=== PATIENT | female | born 1940 | race Caucasian/White ===

== ENCOUNTER 2016-12-14 15:03 | Outpatient (CLI) | payer MEDICARE, OTHER ==
--- NOTE | 2016-12-15 12:36 | XRAY Report ---
THREE VIEWS OF THE RIGHT FOOT: 12/14/2016 CLINICAL HISTORY: Foot pain. FINDINGS: Patient has had multiple foot fusions. There is a surgical screw extending from the talus to the calcaneus. There is also an orthopedic staple extending from the calcaneus to the talus. Th is produces at least partial fusion of the calcaneus and talus. Two surgical marco a are seen extend ing between the navicular bone and the inferior aspect of the talus, producing complete fusion of the se bones. A single surgical screw is noted through the calcaneus and cuboid. This is associated wit h fusion of these bones. Narrowing is noted between the talus and the cuneiform bones. Mild narrowi ng is noted at the tarsal metatarsal junctions. A single surgical screw is seen bridging a healed ol d fracture of the distal third of the shaft of the third metatarsal. Severe joint space narrowing is noted at the first MP joint. The head of the first metatarsal is ero ded and deformed and extends into a defect in the base and proximal shaft of the proximal phalanx of the first toe. This may be a result of old trauma and/or surgery. Considerable attenuation of the h ead of the second and third metatarsals is seen with narrowing of these MP joints and varus deformity noted at these MP joints. Mild varus deformity is seen at the fifth MP joint. Narrowing is noted a t the proximal and distal interphalangeal joints. Osteoporosis is evident. There are either small bone fragments or accessory ossicles along the ventral aspect of the right for efoot inferior to the middle third of the first metatarsal shaft. Multiple fusions are noted in the right hindfoot. These fusions include fused calcaneus and talus, f used talus and navicular bone, fused cuboid and calcaneus. IMPRESSION: 1. SEVERE DEFORMITY IS SEEN AT THE RIGHT FIRST MP JOINT DISCUSSED ABOVE. THIS PROBABLY IS THE RES ULT OF OLD TRAUMA WITH FRACTURE DEFORMITY SEEN IN THE HEAD OF THE FIRST METATARSAL AND ADJACENT BASE OF THE PROXIMAL PHALANX OF THE FIRST TOE. 2. HEALED OLD FRACTURE OF THE DISTAL THIRD OF THE SHAFT OF THE THIRD METATARSAL WITH EVIDENCE OF INT ERNAL FIXATION. 3. ATTENUATION OF THE HEAD OF THE SECOND AND THIRD METATARSALS POSSIBLY A RESULT OF OLD TRAUMA. SEC ONDARY CONSIDERATION FOR THE ATTENUATION OF THE HEAD OF THE SECOND METATARSAL IS OLD ASEPTIC NECROSIS DEFORMITY. 4. OSTEOPOROSIS. 5. OSTEOARTHRITIS. JOB #: [id number] EXT JOB #:[id number]
== END 2016-12-14 15:04 | disposition home or self-care (01) ==
LOC: DI.N 15:03
PROVIDERS: ATTEND Internal Medicine
DX: M20.61 Acquired deformities of toe(s), unspecified, right foot (principal); M81.0 Age-related osteoporosis without current pathological fracture; M19.071 Primary osteoarthritis, right ankle and foot

== ENCOUNTER 2017-06-10 09:12 | Emergency (ER) | payer MEDICARE, OTHER ==
[2017-06-10 09:21] VITALS: BP 125/60
--- NOTE | 2017-06-10 09:30 | ED Physician Documentation ---
PD HPI URI - Stated complaint Stated Complaint: FLU SX - Chief complaint Chief Complaint: Resp - History obtained from History obtained from: Patient - History of Present Illness Timing - onset: How many weeks ago (1) Timing duration: Weeks (1) Timing details: Abrupt onset, Still present Associated symptoms: Fever, Chills Contributing factors: Sick contact (her had flu and was slow to improve. Is on abx for pneumonia based on chest xray. is concerned she is having pneumonia as well, given the persistent of symptoms a week now.), Immunocompromised. No: Travel, COPD / asthma Worsened by: Activity Similar symptoms before: Diagnosis Recently seen: Clinic Review of Systems Constitutional: reports: Fever, Chills, Myalgias Nose: reports: Rhinorrhea / runny nose, Congestion Cardiac: denies: Chest pain / pressure, Palpitations Respiratory: reports: Dyspnea, Cough, Wheezing Skin: denies: Rash, Lesions Neurologic: reports: Generalized weakness. 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 She is steroid-dependent and also takes methotrexate every Monday. She has not needed joint replacement surgery yet.) Derm: None - Past Surgical History Past Surgical History: Yes General: Cholecystectomy, Bowel surgery, Colonoscopy Ortho: Arthroscopic surgery /HEAD ESTHETICIAN: Hysterectomy - Present Medications Home Medications: Ambulatory Orders Medication Instructions Recorded Confirmed predniSONE [Deltasone] 5 mg PO DAILY 12/20/12 06/10/17 Methotrexate 20 mg PO ONCE MDD Takes once weekly 02/12/15 06/10/17 Omeprazole [PriLOSEC] 20 mg PO DAILY 02/25/16 06/10/17 Propranolol ER [Inderal LA] 80 mg PO BID 03/02/17 06/10/17 Naproxen Sodium [Aleve] 220 mg PO BID 03/09/17 06/10/17 Albuterol Sulf [Ventolin Hfa 1 - 2 puffs INH Q4HR PRN #1 inhaler 06/10/17 Inhaler] Azithromycin [Zithromax] 250 mg PO DAILY #6 tablet 06/10/17 Benzonatate [Tessalon] 100 mg PO TID PRN #25 capsule 06/10/17 - Allergies Allergies/Adverse Reactions: Allergies Allergy/AdvReac Type Severity Reaction Status Date / Time meperidine HCl * AdvReac Unknown Hallucinati Verified 06/10/17 09:21 [From Demerol] ons morphine AdvReac Unknown Dizziness Verified 06/10/17 09:21 Penicillins AdvReac Unknown Rash Verified 06/10/17 09:21 Sulfa (Sulfonamide AdvReac Unknown Rash Verified 06/10/17 09:21 Antibiotics) tetracycline AdvReac Unknown Rash Verified 06/10/17 09:21 - Social History Does the pt smoke?: No Smoking Status: Never smoker Does the pt drink ETOH?: No Does the pt have substance abuse?: No - Immunizations Immunizations are current?: Yes - POLST Patient has POLST: No POLST Status: Full Code PD ED PE NORMAL - Vitals Vital signs reviewed: Yes (97% sats) - General General: Alert and oriented X 3, No acute distress, Well developed/nourished - HEENT HEENT: Ears normal, Pharynx benign - Neck Neck: Supple, no meningeal sign, No adenopathy, No JVD - Cardiac Cardiac: RRR, No murmur, No rub - Respiratory Respiratory: No respiratory distress, Clear bilaterally - Abdomen Abdomen: Soft, Non tender - Derm Derm: Normal color, Warm and dry, No rash - Extremities Extremities: No tenderness to palpate, Normal ROM s pain, No edema, No calf tenderness / cord - Neuro Neuro: Alert and oriented X 3, production machine tender 2-12 intact Eye Opening: Spontaneous Motor: Obeys Commands Verbal: Oriented GCS Score: 15 - Psych Psych: Normal mood Results - Vitals Vitals: Vital Signs - 24 hr 06/10/17 06/10/17 09:17 11:30 Temperature 36.7 C Heart Rate 87 84 Respiratory 26 H 18 Rate Blood Pressure 125/60 O2 Saturation 97 Oxygen O2 Source Room air - Rads (name of study) chest xray Radiology: Prelim report reviewed (no infiltrates), EMP read contemporaneously PD MEDICAL DECISION MAKING - ED course Complexity details: reviewed results, considered differential (sounds likely viral URI but she is immune compromised on steroids. Higher chance of bacterial colonization and infection. ), d/w patient Departure - Departure Disposition: 01 Home, Self Care Clinical Impression: Flu Upper respiratory infection Qualifiers: URI type: unspecified URI Qualified Code(s): J06.9 - Acute upper respiratory infection, unspecified Condition: Stable Record reviewed to determine appropriate education?: Yes Instructions: ED Flu Follow-Up: Navjot Burkett MD [Primary Care Provider] - Prescriptions: Albuterol Sulf [Ventolin Hfa Inhaler] 1 - 2 puffs INH Q4HR PRN #1 inhaler PRN Reason: Shortness Of Air/Wheezing Azithromycin [Zithromax] 250 mg PO DAILY #6 tablet Benzonatate [Tessalon] 100 mg PO TID PRN #25 capsule PRN Reason: Cough Comments: Use the albuterol inhaler 2 puffs 4 times a day for the next 7-10 days. Given your current illness, I would increase your prednisone dose from the 5 mg daily to 20 mg daily for 2 days then 15 mg for 2 days then 10 mg daily for 2 days and then back to the 5 mg. This would be a stress dosing for the steroids due to the illness. Because of your compromised immune system, which would be worried about potential bacterial infections though this is most likely viral. However will treat with Zithromax to cover that potential. You have been ill long enough the antiviral medicines such as Tamiflu would have little impact on the illness. Use Tessalon if needed for cough. Follow-up with your primary care if not improving over the next several days. Discharge Date/Time: 06/10/17 12:20
--- NOTE | 2017-06-10 10:39 | XRAY Report ---
EXAM: CHEST RADIOGRAPHY EXAM DATE: 06/10/2017 09:56 AM. CLINICAL HISTORY: Cough, sob. COMPARISON: 02/13/2015. TECHNIQUE: 2 views. FINDINGS: Lungs/Pleura: New rounded 8 mm left upper lung nodule seen only on frontal projection exam between an terior second and third ribs. Bilateral interstitial prominence and areas of parenchymal scarring. In creased AP diameter of the chest on lateral view. No dense consolidation. No pleural effusion. No pne umothorax. Mediastinum: Heart size is normal. Mild bilateral nonspecific hilar prominence. Calcified atheroscler osis in the aorta. Other: None. IMPRESSION: 1. New 8 mm nodular density on the left seen well only on frontal projection examination. CT recommen ded for further assessment. 2. Nonspecific bilateral hilar prominence not significantly changed compared to prior study. 3. Areas of parenchymal scarring are seen in the lungs bilaterally with mild hyperaeration and increa sed AP diameter of the chest. 4. Exam otherwise as above. [facility] Referring Provider Line: [phone] SITE ID: [id number]
[2017-06-10] MEDS ORDERED: DEXAMETHASONE 10 MG/ML VIAL PO STA (11:13)
[2017-06-10] MEDS ORDERED: BENZONATATE 100 MG CAPSULE PO STA (11:13)
[2017-06-10] MEDS ORDERED: ALBUTEROL NEB 2.5 MG/3 ML INH STA (11:13)
== END 2017-06-10 12:20 | disposition home or self-care (01) ==
LOC: ED 09:12
DX: J11.1 Influenza due to unidentified influenza virus with other respiratory manifestations (principal); J06.9 Acute upper respiratory infection, unspecified; M06.9 Rheumatoid arthritis, unspecified; Z79.52 Long term (current) use of systemic steroids
CPT/HCPCS: 71046; 94640; 99281; 99283; A9270; J7613

== ENCOUNTER 2017-06-13 11:39 | Outpatient (CLI) | payer MEDICARE, OTHER ==
[~2017-06-13 11:39] MED LIST: IOPAMIDOL-300 100 ML VIAL ONE
[2017-06-13 12:07] LABS: CREATININE 0.6 mg/dL (0.4-1.0)
[2017-06-13] MEDS ORDERED: IOPAMIDOL-300 100 ML VIAL IVP ONE (12:32)
--- NOTE | 2017-06-13 18:55 | CT Report ---
DATE OF SERVICE: 06/13/2017 CT CHEST WITH CONTRAST: 06/13/2017 CLINICAL INDICATION: Left upper lobe nodule on plain film 06/10/2017. Axial CT images of the chest were obtained with 80 mL Isovue 300 intravenously. In accordance with CT protocol optimization, one or more of the following dose reduction techniques were utilized for this exam: Automated exposure control, adjustment of mA and/or KV based on patient size, or use of iterative reconstructive technique. COMPARISON: Chest x-ray 06/10/2017. The heart and great vessels demonstrate atherosclerotic calcification. No hilar or mediastinal lymphadenopathy is present. The lungs demonstrate bronchiectasis and patchy ground glass opacities. These are likely infectious in etiology. There is no pulmonary nodule in the left upper lobe, at the site questioned on the plain film. This may have represented a focus of mucous plugging. No effusion or pneumothorax is present. Osseous structures demonstrate degenerative changes. Limited evaluation of upper abdominal structures demonstrates normal adrenal glands. Fatty infiltration of the liver is incidentally noted. IMPRESSION: Bronchiectasis, with patchy ground glass opacities, likely infectious in etiology. No evidence of a left upper lobe pulmonary nodule at the site questioned on plain film. TD: 06/13/2017 19:54
== END 2017-06-13 11:40 | disposition home or self-care (01) ==
LOC: LAB 11:39
PROVIDERS: ATTEND Internal Medicine
DX: J47.9 Bronchiectasis, uncomplicated (principal)
CPT/HCPCS: 36415; 71260; 82565; Q9967

== ENCOUNTER 2018-05-23 19:31 | Outpatient (CLI) | payer MEDICARE, OTHER | END 2018-05-23 19:32 | disposition critical access hospital (66) | LOC: EMS 19:31 | PROVIDERS: ATTEND Surgery | DX: R11.2 Nausea with vomiting, unspecified (principal); R53.1 Weakness; R42 Dizziness and giddiness | CPT/HCPCS: A0425; A0427 ==

== ENCOUNTER 2018-05-23 19:46 | Inpatient (IN) | payer MEDICARE, OTHER ==
[2018-05-23 20:11] LABS: BASOPHILS # (AUTO) 0.1 10^3/uL (0.0-0.1); BASOPHILS % (AUTO) 0.9 %; EOSINOPHILS # (AUTO) 0.1 10^3/uL (0.0-0.7); EOSINOPHILS % (AUTO) 0.7 %; HGB - HEMOGLOBIN 13.9 g/dL (12.0-16.0); LYMPHOCYTES % (AUTO) 7.1 %; MEAN CORPUSCULAR HEMOGLOBIN 29.6 pg (27.0-31.0); MEAN CORPUSCULAR HGB CONC 32.8 g/dL (32.0-36.0); MEAN CORPUSCULAR VOLUME 90.3 fL (81.0-99.0); MEAN PLATELET VOLUME 7.4 fL (7.9-10.8); MONOCYTES # (AUTO) 0.7 10^3/uL (0.0-1.0); MONOCYTES % (AUTO) 4.9 %; NEUTROPHILS # (AUTO) 11.9 10^3/uL (1.5-6.6); NEUTROPHILS % (AUTO) 86.4 %; PLT - PLATELET COUNT 224 10^3/uL (130-450); RED CELL DISTRIBUTION WIDTH 16.5 % (12.0-15.0); WHITE BLOOD COUNT 13.8 x10^3/uL (4.8-10.8)
[2018-05-23 20:23] LABS: ALBUMIN 4.2 g/dL (3.2-5.5); ALBUMIN/GLOBULIN RATIO 1.6 (1.0-2.2); BILIRUBIN,TOTAL 0.9 mg/dL (0.2-1.0); CALCIUM 9.6 mg/dL (8.5-10.3); CREATININE 0.7 mg/dL (0.4-1.0); TOTAL PROTEIN 6.8 g/dL (6.7-8.2)
[2018-05-23] MEDS ORDERED: PROMETHAZINE INJ 25 MG in SODIUM CHLORIDE 0.9% 50 ML IV STA (20:23)
--- NOTE | 2018-05-23 20:24 | ED Physician Documentation ---
History of Present Illness - Stated complaint Stated Complaint: N/V/ABD PAIN - Chief complaint Chief Complaint: Abd Pain - History obtained from History obtained from: Patient, Family - History of Present Illness Timing: Today Pain level max: 8 Pain level now: 8 Improved by: nothing Worsened by: eating - Additonal information Additional information: 77-year-old female with abdominal pain and vomiting since 1:00 today. Unable to keep anything down. No fevers. Similar symptoms last year, no cause found. Receive Zofran with EMS but continues to vomit. Patient with a history of colorectal cancer several years ago, had a partial colectomy Review of Systems Ten Systems: 10 systems reviewed and negative Constitutional: denies: Fever, Chills Ears: denies: Ear pain Nose: denies: Rhinorrhea / runny nose, Congestion Throat: denies: Sore throat Cardiac: denies: Chest pain / pressure Respiratory: denies: Cough GI: denies: Diarrhea, Hematemesis, Bloody / black stool : denies: Dysuria Skin: denies: Rash Musculoskeletal: denies: Neck pain, Back pain Neurologic: denies: Headache PD PAST MEDICAL HISTORY - Past Medical History Past Medical History: Yes Cardiovascular: None Respiratory: Pneumonia, Other Neuro: None Endocrine/Autoimmune: None GI: Chronic diarrhea, Chronic constipation, 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: Other : Incontinence HEENT: Chronic vision loss Psych: None Musculoskeletal: Rheumatoid arthritis Derm: None Other Past Medical History: colonrectal cancer - Past Surgical History Past Surgical History: Yes General: Cholecystectomy, Appendectomy, Bowel surgery, Colonoscopy Ortho: Arthroscopic surgery /WILDLIFE TECHNICIAN: Hysterectomy - Present Medications Home Medications: Ambulatory Orders Medication Instructions Recorded Confirmed predniSONE [Deltasone] 5 mg PO DAILY 12/20/12 06/10/17 Methotrexate 20 mg PO ONCE MDD Takes once weekly 02/12/15 06/10/17 Omeprazole [PriLOSEC] 20 mg PO DAILY 02/25/16 06/10/17 Propranolol ER [Inderal LA] 80 mg PO BID 03/02/17 06/10/17 Naproxen Sodium [Aleve] 220 mg PO BID 03/09/17 06/10/17 Albuterol Sulf [Ventolin Hfa 1 - 2 puffs INH Q4HR PRN #1 inhaler 06/10/17 Inhaler] Azithromycin [Zithromax] 250 mg PO DAILY #6 tablet 06/10/17 Benzonatate [Tessalon] 100 mg PO TID PRN #25 capsule 06/10/17 - Allergies Allergies/Adverse Reactions: Allergies Allergy/AdvReac Type Severity Reaction Status Date / Time meperidine HCl * AdvReac Unknown Hallucinati Verified 05/23/18 19:54 [From Demerol] ons morphine AdvReac Unknown Dizziness Verified 05/23/18 19:54 Penicillins AdvReac Unknown Rash Verified 05/23/18 19:54 Sulfa (Sulfonamide AdvReac Unknown Rash Verified 05/23/18 19:54 Antibiotics) tetracycline AdvReac Unknown Rash Verified 05/23/18 19:54 - Social History Does the pt smoke?: No Smoking Status: Former smoker Does the pt drink ETOH?: No Does the pt have substance abuse?: No - Immunizations Immunizations are current?: Yes - POLST Patient has POLST: No POLST Status: Full Code PD ED PE NORMAL - Vitals Vital signs reviewed: Yes - General General: Alert and oriented X 3, No acute distress, Well developed/nourished - HEENT HEENT: PERRL, Moist mucous membranes - Neck Neck: Supple, no meningeal sign - Cardiac Cardiac: RRR, Strong equal pulses - Respiratory Respiratory: No respiratory distress, Clear bilaterally - Abdomen Abdomen: Soft, Other (Tender palpation lower abdomen. Mild distention.) - Back Back: No spinal TTP - Derm Derm: Warm and dry - Extremities Extremities: No edema - Neuro Neuro: Alert and oriented X 3 - Psych Psych: Normal mood, Normal affect Results - Vitals Vitals: Vital Signs - 24 hr 05/23/18 05/23/18 19:47 20:35 Temperature 36.6 C Heart Rate 69 71 Respiratory 18 16 Rate Blood Pressure 180/85 H 158/93 H O2 Saturation 94 95 Oxygen O2 Source Room air - Labs Labs: Laboratory Tests 05/23/18 05/23/18 20:06 20:06 WBC 13.8 H RBC 4.70 Hgb 13.9 Hct 42.5 MCV 90.3 MCH 29.6 MCHC 32.8 RDW 16.5 H Plt Count 224 MPV 7.4 L Neut # (Auto) 11.9 H Lymph # (Auto) 1.0 L Owsley # (Auto) 0.7 Eos # (Auto) 0.1 Baso # (Auto) 0.1 Absolute Nucleated RBC 0.01 Nucleated RBC % 0.0 Sodium 137 Potassium 4.1 Chloride 103 Carbon Dioxide 26 Anion Gap 8.0 BUN 14 Creatinine 0.7 Estimated GFR (MDRD) 81 L Glucose 157 H Calcium 9.6 Total Bilirubin 0.9 AST 42 ALT 59 Alkaline Phosphatase 49 Total Protein 6.8 Albumin 4.2 Globulin 2.6 Albumin/Globulin Ratio 1.6 Lipase 18 L - Rads (name of study) CT abdomen and pelvis Radiology: Prelim report reviewed, EMP read indepedently (SBO with transition in low pelvis.) PD MEDICAL DECISION MAKING - ED course Complexity details: reviewed results, re-evaluated patient, considered differential, d/w patient, d/w data governance consultant ED course: 77-year-old female with a small bowel obstruction. NG tube placed. Will place in the hospital for further care. Given IV fluids, antinausea medications and pain medications. Discussed the case with Dr. Melissa, surgery on-call who will consult. Also discussed with the hospitalist Dr. Patel who accepts. Follow up of final CT read will be done by hospitalist and surgeon. This document was made in part using voice recognition software. While efforts are made to proofread this document, sound alike and grammatical errors may occur. Departure - Departure Disposition: 66 [facility] DC/Xfer Clinical Impression: Small bowel obstruction Condition: Stable
[2018-05-23] MEDS ORDERED: IOVERSOL 320 100 ML VIAL IVP ONE (20:57)
[2018-05-23] MEDS ORDERED: LIDOCAINE JELLY 2% 5 ML TUBE TOP STA (21:40)
--- NOTE | 2018-05-23 21:59 | CT Report ---
Reason: vomiting, abd pain Procedure Date: 05/23/2018 Accession Number: [id number] / [id number] Procedure: CT - Abdomen/Pelvis W/ CPT Code: FULL RESULT: EXAM: CT ABDOMEN AND PELVIS EXAM DATE: 05/23/2018 09:21 PM. CLINICAL HISTORY: Vomiting, abd pain. COMPARISONS: ABDOMEN/PELVIS W/ 03/01/2017 10:01 PM. TECHNIQUE: Routine helical CT imaging was performed through the abdomen and pelvis. IV contrast: OPTI 320 100mL. Enteric contrast: No. Reconstructions: Coronal and sagittal. In accordance with CT protocol optimization, one or more of the following dose reduction techniques were utilized for this exam: automated exposure control, adjustment of mA and/or KV based on patient size, or use of iterative reconstructive technique. FINDINGS: ABDOMEN: Lung Bases: Incompletely included lower lungs demonstrate chronic scattered reticulonodular densities in the right middle lobe and right lower greater than left lower lobe.. Heart size is within normal limits. No basilar effusions. Liver: Diffuse low attenuation again seen, may reflect stable steatosis or differential enhancement. Spleen: Unremarkable. Pancreas: Unremarkable. Gallbladder/Bile Ducts: Status post cholecystectomy. Biliary tree is normal caliber. Adrenal Glands: Unremarkable. Kidneys: No mass, calculi, or hydronephrosis. Peritoneum/Mesentery/Bowel: No free fluid, free air, or collection. Again seen are dilated mid to distal small bowel loops, with fecalization of contents with a transition point of adhesed bowel in the right posterior pelvis adjacent to presacral thickening (), similar in appearance to the prior exam of 03/01/2017. Stable appearance of rectal sigmoid anastomosis. Lymph nodes: No mesenteric, periportal, or retroperitoneal lymphadenopathy. Vasculature: Abdominal aorta is nonaneurysmal. Portal vein is patent. Hepatic veins are patent. PELVIS: The bladder is unremarkable for the degree of distention. Uterus is absent. Stable nonspecific presacral thickening. No pelvic lymphadenopathy. Bones: No suspicious osseous lesions. IMPRESSION: Chronic or recurrent partial obstruction with transition point in the right exterior pelvis likely due to adhesions adjacent to presacral soft tissue thickening. [facility]
[2018-05-23] MEDS ORDERED: PROMETHAZINE 25 MG/1 ML VIAL IM PRN (22:01)
[2018-05-23] MEDS ORDERED: PROCHLORPERAZINE 10 MG/2 ML VIAL IVP PRN (22:01)
[2018-05-23] MEDS ORDERED: MORPHINE 2 MG/ML CARPUJECT IVP PRN (22:01)
[2018-05-23] MEDS ORDERED: ZOLPIDEM 5 MG TABLET PO PRN (22:01)
[2018-05-23] MEDS ORDERED: BENZONATATE 100 MG CAPSULE PO PRN (22:06)
[2018-05-23] MEDS ORDERED: ALBUTEROL NEB 2.5 MG/3 ML INH PRN (22:09)
--- NOTE | 2018-05-23 22:13 | HISTORY & PHYSICAL EXAMINATION ---
Chief Complaint - Chief Complaint Chief Complaint: Abdominal pain with nausea and vomiting History of Present Illness - Admitted From Admitted From:: Emergency department - History Obtained From Records Reviewed: ED records, previous visits History obtained from: Dr. Braxton and patient, And spouse Exam Limitations: Patient was having significant nausea during my interview and requested I n - History of Present Illness HPI Comment/Other: Some history is provided by ED physician on previous records as patient was feeling unwell and did not want to answer many more questions. Patient is a 77-year-old female with a history of rheumatoid arthritis and colorectal cancer status post partial colectomy who presents with 1 day history of persistent nausea and vomiting with abdominal pain. Symptoms started at approximately 1:00 PM and have been continuous and progressively getting worse to the extent that she not can keep anything down including water. She denies any fever, hematochezia or hemoptysis. She does not have a prior history of diagnosed small bowel obstruction but she did have a similar episode approximately 1 year ago and does not have a diagnosis for the symptoms. An emergency room evaluation was performed including labs that were only remarkable for mildly elevated WBC count of 13, as well as a CT scan suggestive of small bowel obstruction with a final report not yet read, but per my own read and from her Dr. Cuevas's read findings consistent with a small bowel obstruction without perforation or abscess. Patient received a single bag of IV fluids and a single dose of Phenergan IV which has been helpful and the patient is receiving nasogastric tube at the time of the history and physical. Dr. Melissa with general surgery has already been consulted by Dr. Braxton and he agreed to consult with medical team admitting. He will plan to see the patient in the morning. History - Past Medical History Cardiovascular: reports: None Respiratory: reports: Pneumonia, Other Neuro: reports: None Endocrine/Autoimmune: reports: None GI: reports: GERD, Chronic diarrhea, Chronic constipation, Other RECEPTIONIST CLERK: reports: Other : reports: Incontinence HEENT: reports: Chronic vision loss Psych: reports: None Musculoskeletal: reports: Rheumatoid arthritis Derm: reports: None MRSA Hx?: No Other Past Medical History: colonrectal cancer - Past Surgical History General: reports: Cholecystectomy, Appendectomy, Bowel surgery, Colonoscopy Ortho: reports: Arthroscopic surgery /RECEPTIONIST CLERK: reports: Hysterectomy - Family & Social History Living arrangement: At home Living Situation: With spouse/s.o. Social History Notes: She is from [place]. She her first . Has been to her second for over 30 years. [place] He is retired and they really liked it here. She smoked half a pack per day for 13 years. Never had a history with alcohol abuse. She denies any recreational substance abuse. She is completely independent with activities of daily living. 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 Her helps with heavy housekeeping because of her rheumatoid arthritis. She is a full code. - Substance History Use: Uses substance without health or social issues: NONE - POLST Patient has POLST: No POLST Status: Full Code Meds/Allgy - Home Medications Home Medications: Ambulatory Orders Medication Instructions Recorded Confirmed predniSONE [Deltasone] 5 mg PO DAILY 12/20/12 06/10/17 Methotrexate 20 mg PO ONCE MDD Takes once weekly 02/12/15 06/10/17 Omeprazole [PriLOSEC] 20 mg PO DAILY 02/25/16 06/10/17 Propranolol ER [Inderal LA] 80 mg PO BID 03/02/17 06/10/17 Albuterol Sulf [Ventolin Hfa 1 - 2 puffs INH Q4HR PRN #1 inhaler 06/10/17 Inhaler] - Allergies Allergies/Adverse Reactions: Allergies Allergy/AdvReac Type Severity Reaction Status Date / Time meperidine HCl * AdvReac Unknown Hallucinati Verified 05/23/18 19:54 [From Demerol] ons morphine AdvReac Unknown Dizziness Verified 05/23/18 19:54 Penicillins AdvReac Unknown Rash Verified 05/23/18 19:54 Sulfa (Sulfonamide AdvReac Unknown Rash Verified 05/23/18 19:54 Antibiotics) tetracycline AdvReac Unknown Rash Verified 05/23/18 19:54 Review of Systems - Constitutional Constitutional: reports: Fatigue, Poor appetite. denies: Fever, Chills - Cardiovascular Cariovascular: denies: Chest pain - Respiratory Respiratory: denies: SOB at rest, SOB with exertion - Gastrointestinal Gastrointestinal: reports: Abdominal pain, Abdominal distention, Nausea, Vomiting, Reflux/heartburn, Bloating, Poor appetite. denies: Constipation, Diarrhea, Change in bowel habits, Bile emesis, Ricardo blood emesis, Coffee grounds emesis - Genitourinary Genitourinary: denies: Dysuria - Musculoskeletal Musculoskeletal: reports: Joint pain - Integumentary Integumentary: denies: Rash - Neurological Neurological: reports: General weakness - All Other Systems All Other Systems: reports: Reviewed and negative Prior Level of Functionality: Independent with activities of daily living Exam - Vital Signs Reviewed Vital Signs: Yes Vital Signs: Vital Signs x48h Temp Pulse Resp BP Pulse Ox 05/23/18 22:08 36.1 C L 73 16 165/79 H 95 05/23/18 20:35 71 16 158/93 H 95 05/23/18 19:47 36.6 C 69 18 180/85 H 94 - Physical Exam General Appearance: positive: No acute distress Eyes Bilateral: positive: Normal inspection ENT: positive: ENT inspection nml Neck: positive: Nml inspection Respiratory: positive: Chest non-tender, No respiratory distress, Breath sounds nml Cardiovascular: positive: Regular rate & rhythm, No murmur, No gallop Peripheral Pulses: positive: 2+ Abdomen: positive: No organomegaly, Tenderness, Other (Hypoactive bowel sounds with generalized abdominal tenderness most prominent to the epigastric and left lower quadrant. There is mild distention, abdomen is still soft). negative: Nml bowel sounds, Hepatomegaly, Splenomegaly, Mass Skin: positive: Color nml Extremities: positive: Non-tender, Joint swelling Neurologic/Psychiatric: positive: Oriented x3, CN's nml (2-12), Motor nml, Sensation nml, Mood/affect nml Sepsis Event Note (H) - Evaluation Current Stage of Sepsis: Ruled out Conclusion/Plan - Problem List (1) Partial small bowel obstruction Conclusion/Plan: Patient is presenting with clinical symptoms of, and diagnostic imaging suggestive of, partial small bowel obstruction. Patient will be admitted an inpatient status with n.p.o. status and NG tube for decompression with surgical consultation in the morning. In the meantime will provide IV fluids to maintain hydration, and pending her improvement of symptoms the NG tube can potentially be transitioned off or if symptoms worsen, may need surgical intervention pending surgical consult. Otherwise, at this point there is no obvious evidence of more sinister pathology such as bowel perforation or incarceration however we will continue to monitor closely for clinical changes and respond accordingly. (2) Abdominal pain Conclusion/Plan: Likely secondary to #1, as above, continue to monitor for clinical response to treatment with NG tube suction and morphine as needed for pain. (3) Rheumatoid arthritis of multiple sites without organ or system involvement with positive rheumatoid factor Conclusion/Plan: Chronic, stable, continue home medications. (4) Vomiting Conclusion/Plan: As above, secondary to SBO. (5) History of colon cancer in adulthood Conclusion/Plan: This is likely a contributing factor with probable surgical adhesions from the partial colectomy contributing to the small bowel obstruction but otherwise at this point there is no active management necessary for this historical problem. - Lab Results Lab results reviewed: Yes Fish Bones: 05/23/18 20:06 05/23/18 20:06 - Diagnostic Imaging Results Diagnostic Imaging Results: positive: Prelim report reviewed, Read independently Core Measures - Anticipated LOS I expect patient to be DC'd or transferred within 96 hours.: Yes - DVT/VTE - Prophylaxis VTE/DVT Device ordered at admit?: Yes
[2018-05-23] MEDS ORDERED: PROPRANOLOL ER 80 MG CAPSULE PO SCH (23:00)
[2018-05-23] MEDS: SODIUM CHLORIDE 0.9% 1,000 ML IV SCH (23:08)
[2018-05-23] MEDS: LABETALOL 20 MG/4 ML SYRINGE IVP SCH (23:13)
[2018-05-24] MEDS ORDERED: IOVERSOL 320 100 ML VIAL IVP ONE (00:31)
[2018-05-24 05:38] LABS: BILIRUBIN,URINE NEGATIVE (NEGATIVE); GLUCOSE, URINE (UA) NEGATIVE (NEGATIVE); KETONES,URINE (UA) NEGATIVE (NEGATIVE); LEUKOCYTE ESTERASE, URINE NEGATIVE (NEGATIVE); NITRITE,URINE NEGATIVE (NEGATIVE); OCCULT BLOOD,URINE NEGATIVE (NEGATIVE); PH,URINE 6.5 PH (5.0-7.5); PROTEIN,URINE NEGATIVE (NEGATIVE); UROBILINOGEN,URINE 0.2 (NORMAL) E.U./dL (NORMAL)
[2018-05-24 05:39] LABS: CLARITY,URINE SL. CLOUDY (CLEAR)
[2018-05-24 05:43] LABS: HGB - HEMOGLOBIN 13.1 g/dL (12.0-16.0); MEAN CORPUSCULAR HEMOGLOBIN 29.3 pg (27.0-31.0); MEAN CORPUSCULAR HGB CONC 32.3 g/dL (32.0-36.0); MEAN CORPUSCULAR VOLUME 90.7 fL (81.0-99.0); MEAN PLATELET VOLUME 7.5 fL (7.9-10.8); RED BLOOD COUNT 4.48 10^6/uL (4.20-5.40); RED CELL DISTRIBUTION WIDTH 16.6 % (12.0-15.0); WHITE BLOOD COUNT 12.5 x10^3/uL (4.8-10.8)
[2018-05-24 06:02] LABS: BACTERIA,URINE Many /HPF (None Seen); RBC,URINE 0-5 /HPF (0-5); SQUAMOUS EPITHELIAL CELL,UR RARE Squamous (<= Few)
[2018-05-24 06:04] LABS: CALCIUM 8.9 mg/dL (8.5-10.3); CREATININE 0.8 mg/dL (0.4-1.0)
[2018-05-24] MEDS: SODIUM CHLORIDE FLUSH 0.9% 10 ML SYRINGE IVP PRN (06:18)
[2018-05-24] MEDS: SODIUM CHLORIDE FLUSH 0.9% 10 ML SYRINGE IVP SCH ×3 (06:18→17:44)
[2018-05-24] MEDS: PANTOPRAZOLE 40 MG VIAL IVP SCH (06:18)
--- NOTE | 2018-05-24 08:33 | CONSULTATION NOTE ---
Chief Complaint - Chief Complaint Chief Complaint: abdominal pain History of Present Illness - History of Present Illness HPI Comment/Other: 77 yo woman admitted from the ER for presumed SBO. Today has NGT in place with minimal output, although she says her abdomen is much improved and she would like to go home. No BM or flatus. She had a hysterectomy decades ago and a colorectal resection in 2002 for cancer. Had normal follow-ups with no sign of recurrence. Her CT shows mildly dilated loops of bowel with a probable transition point in the pelvis. History - Past Medical History Cardiovascular: reports: None Respiratory: reports: Pneumonia, Other Neuro: reports: None Endocrine/Autoimmune: reports: None GI: reports: GERD, Chronic diarrhea, Chronic constipation, Other [employer]PER[employer]: reports: Other : reports: Incontinence HEENT: reports: Chronic vision loss Psych: reports: None Musculoskeletal: reports: Rheumatoid arthritis Derm: reports: None MRSA Hx?: No Other Past Medical History: colonrectal cancer - Past Surgical History General: reports: Cholecystectomy, Appendectomy, Bowel surgery, Colonoscopy Ortho: reports: Arthroscopic surgery /[employer] OPERATIONS: reports: Hysterectomy - Family & Social History Living arrangement: At home Living Situation: With spouse/s.o. Social History Notes: She is from [place]. She her first . Has been to her second for over 30 years. They moved to the [place] 2001. He is retired and they really liked it here. She smoked half a pack per day for 13 years. Never had a history with alcohol abuse. She denies any recreational substance abuse. She is completely independent with activities of daily living. 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 Her helps with heavy housekeeping because of her rheu matoid arthritis. She is a full code. - Substance History Use: Uses substance without health or social issues: NONE - POLST Patient has POLST: No POLST Status: Full Code Meds/Allgy - Home Medications Home Medications: Ambulatory Orders Medication Instructions Recorded Confirmed predniSONE [Deltasone] 5 mg PO DAILY 12/20/12 05/23/18 Methotrexate 20 mg PO ONCE MDD Takes once weekly 02/12/15 05/23/18 Omeprazole [PriLOSEC] 20 mg PO DAILY 02/25/16 05/23/18 Propranolol ER [Inderal LA] 80 mg PO BID 03/02/17 05/23/18 Albuterol Sulf [Ventolin Hfa 1 - 2 puffs INH Q4HR PRN #1 inhaler 06/10/17 05/23/18 Inhaler] - Allergies Allergies/Adverse Reactions: Allergies Allergy/AdvReac Type Severity Reaction Status Date / Time meperidine HCl * AdvReac Unknown Hallucinati Verified 05/23/18 19:54 [From Demerol] ons morphine AdvReac Unknown Dizziness Verified 05/23/18 19:54 Penicillins AdvReac Unknown Rash Verified 05/23/18 19:54 Sulfa (Sulfonamide AdvReac Unknown Rash Verified 05/23/18 19:54 Antibiotics) tetracycline AdvReac Unknown Rash Verified 05/23/18 19:54 Review of Systems - Gastrointestinal Gastrointestinal: reports: Abdominal pain, Constipation, Change in bowel habits Exam - Vital Signs Vital Signs: Vital Signs x48h Temp Pulse Resp BP Pulse Ox 05/24/18 07:41 37.5 C 77 18 120/46 L 93 - Physical Exam General Appearance: positive: No acute distress Eyes Bilateral: positive: Normal inspection ENT: positive: ENT inspection nml Neck: positive: Nml inspection Respiratory: positive: Chest non-tender Abdomen: positive: No distention, Tenderness Back: positive: Nml inspection Skin: positive: Color nml Extremities: positive: Non-tender Neurologic/Psychiatric: positive: Oriented x3 Conclusion/Plan - Diagnosis Diagnosis: bowel obstruction - Plan Plan: Pt appears to have an adhesive low-grade bowel obstruction which is already resolving. If it does not completely resolve spontaneously, we will look for a more insidious cause of her obstruction. - Lab Results Lab results reviewed: Yes Fish Bones: 05/24/18 05:30 05/24/18 05:30
[2018-05-24] MEDS: SODIUM CHLORIDE 0.9% 1,000 ML IV SCH (09:01)
[2018-05-24] MEDS: predniSONE 5 MG TABLET PO SCH (09:28)
[2018-05-24] MEDS: LABETALOL 20 MG/4 ML SYRINGE IVP SCH ×2 (10:08→21:02)
--- NOTE | 2018-05-24 13:51 | PROVIDER PROGRESS NOTE ---
Subjective - Prog Note Date Prog Note Date: 05/24/18 - Subjective Pt reports feeling: Improved Subjective: pt report her pain is better, no N/V. Discussed with pt about home meds, right now pt has NG tube with SBO, will resume her home meds as sooner as medical condition allow, will start IV meds now, pt state she understand that. Current Medications - Current Medications Current Medications: Active Medications Benzonatate (Tessalon) 100 mg PO TID PRN PRN Reason: Cough Sodium Chloride (Normal Saline 0.9%) 1,000 mls @ 100 mls/hr IV .Q10H [facility] Last Admin: 05/24/18 09:01 Dose: 100 mls/hr Labetalol HCl (Trandate Syringe) 20 mg IVP BID [facility] Last Admin: 05/24/18 10:08 Dose: Not Given Morphine Sulfate (Morphine (Carpuject)) 2 mg IVP Q2HR PRN PRN Reason: Pain 8 to 10 Pantoprazole Sodium (Protonix) 40 mg IVP QDAC [facility] Last Admin: 05/24/18 06:18 Dose: 40 mg Prednisone (Deltasone) 5 mg PO DAILY [facility] Last Admin: 05/24/18 09:28 Dose: Not Given Prochlorperazine Edisylate (Compazine Inj) 10 mg IVP Q6HR PRN PRN Reason: Nausea / Vomiting Promethazine HCl (Phenergan Inj) 25 mg IM Q6HR PRN PRN Reason: Nausea / Vomiting Last Admin: 05/23/18 22:58 Dose: 25 mg Sodium Chloride (Normal Saline Flush 0.9%) 10 ml IVP PRN PRN PRN Reason: NEEDED PER PROVIDER ORDERS Last Admin: 05/24/18 06:18 Dose: 10 ml Sodium Chloride (Normal Saline Flush 0.9%) 10 ml IVP 0100,0900,1700 [facility] Last Admin: 05/24/18 09:05 Dose: Not Given Zolpidem Tartrate (Ambien) 5 mg PO QPM PRN PRN Reason: Insomnia predniSONE [Deltasone] 5 mg PO DAILY 12/20/12 Methotrexate 20 mg PO .MON MDD Takes once weekly 02/12/15 Omeprazole [PriLOSEC] 20 mg PO DAILY 02/25/16 Propranolol ER [Inderal LA] 80 mg PO BID 03/02/17 Calcium Carbonate/Vitamin D3 [Calcium 500 mg-Vit D3 600 Unit] 1 each PO DAILY 05/24/18 Cranberry 500 mg PO DAILY 05/24/18 Lutein 20 mg PO DAILY 05/24/18 Multivitamin [Multiple Vitamins] 1 each PO DAILY 05/24/18 Vitamin B Complex 1 tab PO DAILY 05/24/18 Objective - Vital Signs/Intake & Output Reviewed Vital Signs: Yes Vital Signs: Vital Signs x48h Temp Pulse Pulse Resp BP Pulse Ox 05/24/18 11:01 65 20 05/24/18 07:41 37.5 C 77 18 120/46 L 93 Intake & Output: Intake & Output 05/21/18 05/22/18 05/23/18 05/24/18 23:59 23:59 23:59 23:59 Intake Total 51 988.333 Output Total 700 500 Balance -649 488.333 - Objective General Appearance: positive: No acute distress, Alert. negative: Lethargic Eyes Bilateral: positive: Normal inspection, PERRL, No lid inflammation, Conjunctivae nml ENT: positive: ENT inspection nml, Pharynx nml, No signs of dehydration. negative: Purulent nasal drainage, Pharyngeal erythema, Oral lesions Neck: positive: Nml inspection, Thyroid nml, No JVD, Trachea midline. negative: Thyromegaly, Lymphadenopathy (R), Lymphadenopathy (L), Stiff neck, Swelling/bruising, Tracheal deviation Respiratory: positive: Chest non-tender, No respiratory distress, Breath sounds nml. negative: Wheezes, Rales, Rhonchi Cardiovascular: positive: Regular rate & rhythm, No murmur, No gallop. negati ve: Irregularly irregular, Extrasystoles, Tachycardia, Bradycardia, JVD present, Systolic murmur, Diastolic murmur Peripheral Pulses: 2+ Radial (R), 2+ Radial (L), 2+ Dorsalis pedis (R), 2+ Dorsalis pedis (L) Abdomen: positive: Non-tender, No organomegaly, No distention. negative: Tenderness, Guarding, Rebound Back: positive: Nml inspection. negative: CVA tenderness (R), CVA tenderness (L) Skin: positive: Color nml, No rash, Warm, Dry. negative: Cyanosis, Diaphoresis, Pallor Extremities: positive: Non-tender, Full ROM, Nml appearance. negative: Calf tenderness, Joint swelling, Sherry's sign/cords Neurologic/Psychiatric: positive: Oriented x3, Motor nml, Sensation nml, Mood/affect nml. negative: Weakness, Sensory loss, Facial droop, Slurred/abnml speech, Depressed mood/affect - Lab Results Fish Bones: 05/24/18 05:30 05/24/18 05:30 Other Labs: Lab Results x24hrs 05/24/18 05/24/18 05/24/18 Range/Units 05:30 05:30 05:20 WBC 12.5 H (4.8-10.8) x10^3/uL RBC 4.48 (4.20-5.40) 10^6/uL Hgb 13.1 (12.0-16.0) g/dL Hct 40.6 (37.0-47.0) % MCV 90.7 (81.0-99.0) fL MCH 29.3 (27.0-31.0) pg MCHC 32.3 (32.0-36.0) g/dL RDW 16.6 H (12.0-15.0) % Plt Count 215 (130-450) 10^3/uL MPV 7.5 L (7.9-10.8) fL Neut # (Auto) (1.5-6.6) 10^3/uL Lymph # (Auto) (1.5-3.5) 10^3/uL [place] # (Auto) (0.0-1.0) 10^3/uL Eos # (Auto) (0.0-0.7) 10^3/uL Baso # (Auto) (0.0-0.1) 10^3/uL Absolute Nucleated RBC x10^3/uL Nucleated RBC % /100WBC Sodium 139 (135-145) mmol/L Potassium 4.0 (3.5-5.0) mmol/L Chloride 106 (101-111) mmol/L Carbon Dioxide 25 (21-32) mmol/L Anion Gap 8.0 (6-13) BUN 15 (6-20) mg/dL Creatinine 0.8 (0.4-1.0) mg/dL Estimated GFR (MDRD) 69 L (>89) Glucose 114 H (70-100) mg/dL Calcium 8.9 (8.5-10.3) mg/dL Total Bilirubin (0.2-1.0) mg/dL AST (10-42) IU/L ALT (10-60) IU/L Alkaline Phosphatase (42-121) IU/L Total Protein (6.7-8.2) g/dL Albumin (3.2-5.5) g/dL Globulin (2.1-4.2) g/dL Albumin/Globulin Ratio (1.0-2.2) Lipase (22-51) U/L Urine Color YELLOW Urine Clarity SL. CLOUDY (CLEAR) Urine pH 6.5 (5.0-7.5) PH Ur Specific [place] 1.010 (1.002-1.030) Urine Protein NEGATIVE (NEGATIVE) mg/dL Urine Glucose (UA) NEGATIVE (NEGATIVE) mg/dL Urine Ketones NEGATIVE (NEGATIVE) mg/dL Urine Occult Blood NEGATIVE (NEGATIVE) Urine Nitrite NEGATIVE (NEGATIVE) Urine Bilirubin NEGATIVE (NEGATIVE) Urine Urobilinogen 0.2 (NORMAL) (NORMAL) E.U./dL Ur Leukocyte Esterase NEGATIVE (NEGATIVE) Urine RBC 0-5 (0-5) /HPF Urine WBC 0-3 (0-5) /HPF Ur Squamous Epith Cells RARE Squamous (<= Few) Urine Bacteria Many H (None Seen) /HPF Ur Microscopic Review INDICATED Urine Culture Comments INDICATED 05/23/18 05/23/18 Range/Units 20:06 20:06 WBC 13.8 H (4.8-10.8) x10^3/uL RBC 4.70 (4.20-5.40) 10^6/uL Hgb 13.9 (12.0-16.0) g/dL Hct 42.5 (37.0-47.0) % MCV 90.3 (81.0-99.0) fL MCH 29.6 (27.0-31.0) pg MCHC 32.8 (32.0-36.0) g/dL RDW 16.5 H (12.0-15.0) % Plt Count 224 (130-450) 10^3/uL MPV 7.4 L (7.9-10.8) fL Neut # (Auto) 11.9 H (1.5-6.6) 10^3/uL Lymph # (Auto) 1.0 L (1.5-3.5) 10^3/uL [place] # (Auto) 0.7 (0.0-1.0) 10^3/uL Eos # (Auto) 0.1 (0.0-0.7) 10^3/uL Baso # (Auto) 0.1 (0.0-0.1) 10^3/uL Absolute Nucleated RBC 0.01 x10^3/uL Nucleated RBC % 0.0 /100WBC Sodium 137 (135-145) mmol/L Potassium 4.1 (3.5-5.0) mmol/L Chloride 103 (101-111) mmol/L Carbon Dioxide 26 (21-32) mmol/L Anion Gap 8.0 (6-13) BUN 14 (6-20) mg/dL Creatinine 0.7 (0.4-1.0) mg/dL Estimated GFR (MDRD) 81 L (>89) Glucose 157 H (70-100) mg/dL Calcium 9.6 (8.5-10.3) mg/dL Total Bilirubin 0.9 (0.2-1.0) mg/dL AST 42 (10-42) IU/L ALT 59 (10-60) IU/L Alkaline Phosphatase 49 (42-121) IU/L Total Protein 6.8 (6.7-8.2) g/dL Albumin 4.2 (3.2-5.5) g/dL Globulin 2.6 (2.1-4.2) g/dL Albumin/Globulin Ratio 1.6 (1.0-2.2) Lipase 18 L (22-51) U/L Urine Color Urine Clarity (CLEAR) Urine pH (5.0-7.5) PH Ur Specific [place] (1.002-1.030) Urine Protein (NEGATIVE) mg/dL Urine Glucose (UA) (NEGATIVE) mg/dL Urine Ketones (NEGATIVE) mg/dL Urine Occult Blood (NEGATIVE) Urine Nitrite (NEGATIVE) Urine Bilirubin (NEGATIVE) Urine Urobilinogen (NORMAL) E.U./dL Ur Leukocyte Esterase (NEGATIVE) Urine RBC (0-5) /HPF Urine WBC (0-5) /HPF Ur Squamous Epith Cells (<= Few) Urine Bacteria (None Seen) /HPF Ur Microscopic Review Urine Culture Comments ABX Reporting Has patient been on IV antibiotics over the past 48 hours?: No Sepsis Event Note (H) - Evaluation Current Stage of Sepsis: Ruled out Assessment/Plan - Problem List (1) Partial small bowel obstruction Impression: 05/24 recurrent medical problem, four times before, pt usually resolves her problem by her own. consult with GI surgeon, will followup NPO with NG tube IVF of NS pain control encourage pt safely walk with nurse image monitor (2) Abdominal pain Conclusion/Plan: better, continue pain control Likely secondary to #1, as above, continue to monitor for clinical response to treatment with NG tube suction and morphine as needed for pain. (3) Rheumatoid arthritis of multiple sites without organ or system involvement with positive rheumatoid factor Conclusion/Plan: Chronic, stable, continue home medications. (4) Vomiting Conclusion/Plan: resolved as pt report As above, secondary to SBO. (5) History of colon cancer in adulthood Conclusion/Plan: stable, will check CEA This is likely a contributing factor with probable surgical adhesions from the partial colectomy contributing to the small bowel obstruction but otherwise at this point there is no active management necessary for this historical problem.
[2018-05-24] MEDS: D5.45NS W/20 MEQ KCL 1,000 ML IV SCH (18:27)
[2018-05-24] MEDS: PHENOL THROAT SPRAY 177 ML MM PRN (18:28)
[2018-05-24] MEDS ORDERED: diphenhydrAMINE INJ 50 MG/ML VIAL IVP PRN (20:56)
[2018-05-25] MEDS ORDERED: KETOROLAC 15 MG/ML VIAL IVP PRN (00:56)
[2018-05-25] MEDS: SODIUM CHLORIDE FLUSH 0.9% 10 ML SYRINGE IVP SCH ×2 (01:13→08:24)
[2018-05-25] MEDS: D5.45NS W/20 MEQ KCL 1,000 ML IV SCH (04:08)
[2018-05-25] MEDS: PHENOL THROAT SPRAY 177 ML MM PRN (05:16)
[2018-05-25 05:52] LABS: HGB - HEMOGLOBIN 11.8 g/dL (12.0-16.0); MEAN CORPUSCULAR HEMOGLOBIN 30.1 pg (27.0-31.0); MEAN CORPUSCULAR HGB CONC 33.2 g/dL (32.0-36.0); MEAN CORPUSCULAR VOLUME 90.8 fL (81.0-99.0); MEAN PLATELET VOLUME 7.6 fL (7.9-10.8); RED BLOOD COUNT 3.92 10^6/uL (4.20-5.40); RED CELL DISTRIBUTION WIDTH 16.5 % (12.0-15.0); WHITE BLOOD COUNT 6.7 x10^3/uL (4.8-10.8)
[2018-05-25 06:05] LABS: CALCIUM 8.3 mg/dL (8.5-10.3); CREATININE 0.6 mg/dL (0.4-1.0)
[2018-05-25] MEDS: PANTOPRAZOLE 40 MG VIAL IVP SCH (06:23)
[2018-05-25] MEDS: SODIUM CHLORIDE FLUSH 0.9% 10 ML SYRINGE IVP PRN (06:23)
[2018-05-25] MEDS ORDERED: POTASSIUM CHLOR 20 MEQ/100 ML 20 MEQ/100 ML BAG IV ONE (07:46)
[2018-05-25] MEDS ORDERED: POTASSIUM CHLOR 20 MEQ/100 ML 20 MEQ/100 ML BAG IV SCH (07:59)
[2018-05-25] MEDS: predniSONE 5 MG TABLET PO SCH (08:03)
[2018-05-25] MEDS: LABETALOL 20 MG/4 ML SYRINGE IVP SCH (08:24)
[2018-05-25 08:30] VITALS: BP 120/44
[2018-05-25] MEDS ORDERED: POTASSIUM CHLORIDE 20 MEQ TABLET PO ONE (09:27)
--- NOTE | 2018-05-25 11:53 | PROVIDER PROGRESS NOTE ---
Subjective - Prog Note Date Prog Note Date: 05/25/18 Prog Note Time: 11:51 - Subjective Pt reports feeling: Improved (Reports numerous BMs and tolerating diet with no pain.) Objective - Vital Signs/Intake & Output Vital Signs: Vital Signs x48h Temp Pulse Resp BP Pulse Ox 05/25/18 08:30 70 120/44 L 05/25/18 08:11 36.8 C 69 16 143/52 H 97 Intake & Output: Intake & Output 05/22/18 05/23/18 05/24/18 05/25/18 23:59 23:59 23:59 23:59 Intake Total 51 6689.305 0432.667 Output Total 700 975 925 Balance -649 1013.333 761.667 - Objective General Appearance: positive: No acute distress Eyes Bilateral: positive: Normal inspection ENT: positive: ENT inspection nml Neck: positive: Nml inspection Respiratory: positive: Chest non-tender Abdomen: positive: Non-tender Back: positive: Nml inspection Skin: positive: Color nml Extremities: positive: Non-tender Neurologic/Psychiatric: positive: Oriented x3 - Lab Results Fish Bones: 05/25/18 05:15 05/25/18 05:15 Other Labs: Lab Results x24hrs 05/25/18 05/25/18 05/25/18 Range/Units 09:12 05:15 05:15 WBC 6.7 (4.8-10.8) x10^3/uL RBC 3.92 L (4.20-5.40) 10^6/uL Hgb 11.8 L (12.0-16.0) g/dL Hct 35.6 L (37.0-47.0) % MCV 90.8 (81.0-99.0) fL MCH 30.1 (27.0-31.0) pg MCHC 33.2 (32.0-36.0) g/dL RDW 16.5 H (12.0-15.0) % Plt Count 142 (130-450) 10^3/uL MPV 7.6 L (7.9-10.8) fL Sodium 137 (135-145) mmol/L Potassium 3.4 L (3.5-5.0) mmol/L Chloride 109 (101-111) mmol/L Carbon Dioxide 25 (21-32) mmol/L Anion Gap 3.0 L (6-13) BUN 11 (6-20) mg/dL Creatinine 0.6 (0.4-1.0) mg/dL Estimated GFR (MDRD) 97 (>89) Glucose 110 H (70-100) mg/dL Calcium 8.3 L (8.5-10.3) mg/dL Carcinoembryonic Ag 0.4 ng/mL Sepsis Event Note (H) - Evaluation Current Stage of Sepsis: Ruled out Assessment/Plan - Problem List (1) Small bowel obstruction Impression: SBO has resolved. Clear for discharge.
--- NOTE | 2018-05-25 13:05 | Discharge Plan ---
Discharge Plan Disposition: Home, Self Care Condition: Poor Diet: Regular Activity Restrictions: Activity as Tolerated Shower Restrictions: No (fall precaution) Instruction Topics: Obstruction Sm Bowel Additional Instructions or Follow Up instructions: You may followup your PCP in one week, followup your surgeon as out-pt to discuss the recurrence issue of bowel obstruction. Your bowel obstruction is resolved by your own. Your home medications remain the same. Should your symptoms return or worsen, you may call 911, your PCP or present ER for help. No Smoking: If you smoke, Please STOP! Call for help. Follow-up with: Navjot Burkett MD [Primary Care Provider] -
--- NOTE | 2018-05-25 13:06 | DISCHARGE SUMMARY ---
"Discharge Summary Discharge Date: 05/25/18 Discharging Provider: Rudd Primary Care Provider: Dr. Navjot Burkett Condition at Discharge: Poor Discharge Disposition: 01 Home, Self Care Discharge Facility Name: Home - DIAGNOSES Admission Diagnoses: (1) Partial small bowel obstruction (2) Abdominal pain (3) Rheumatoid arthritis of multiple sites without organ or system involvement with positive rheumatoid factor (4) Vomiting (5) History of colon cancer in adulthood Discharge Diagnoses with Status of Each Condition: 1) Partial small bowel obstruction resolved. pt had three bowel movement, and tolerate the diet. GI surgeon Dr. Melissa d/c pt (2) Abdominal pain resolved (3) Rheumatoid arthritis of multiple sites without organ or system involvement with positive rheumatoid factor stable, followup PCP (4) Vomiting resolved (5) History of colon cancer in adulthood stable, followup PCP and her surgeon - HPI History of Present Illness: refer from Dr. Patel's HPI on 05/23/18 for pt as the following: Some history is provided by ED physician on previous records as patient was feeling unwell and did not want to answer many more questions. Patient is a 77-year-old female with a history of rheumatoid arthritis and colorectal cancer status post partial colectomy who presents with 1 day history of persistent nausea and vomiting with abdominal pain. Symptoms started at approximately 1:00 PM and have been continuous and progressively getting worse to the extent that she not can keep anything down including water. She denies any fever, hematochezia or hemoptysis. She does not have a prior history of diagnosed small bowel obstruction but she did have a similar episode approximately 1 year ago and does not have a diagnosis for the symptoms. An emergency room evaluation was performed including labs that were only remarkable for mildly elevated WBC count of 13, as well as a CT scan suggestive of small bowel obstruction with a final report not yet read, but per my own read and from her Dr. Cuevas's read findings consistent with a small bowel obstruction without perforation or abscess. Patient received a single bag of IV fluids and a single dose of Phenergan IV which has been helpful and the patient is receiving nasogastric tube at the time of the history and physical. Dr. Melissa with general surgery has already been consulted by Dr. Braxton and he agreed to consult with medical team admitting. He will plan to see the patient in the morning. - CONSULTS | PROCEDURES Consultations: Dr. Melissa Procedures: no procedure - HOSPITAL COURSE Hospital Course: pt was admitted for partial SBO. after treated in hospital, pt had three bowel movement, and tolerate the diet. Surgeon Dr. Melissa released pt for d/c. pt is happy to be d/c to home. pt is educated for the prevention of SBO. - ALLERGIES Allergies/Adverse Reactions: Allergies Allergy/AdvReac Type Severity Reaction Status Date / Time meperidine HCl * AdvReac Unknown Hallucinati Verified 05/23/18 19:54 [From Demerol] ons morphine AdvReac Unknown Dizziness Verified 05/23/18 19:54 Penicillins AdvReac Unknown Rash Verified 05/23/18 19:54 Sulfa (Sulfonamide AdvReac Unknown Rash Verified 05/23/18 19:54 Antibiotics) tetracycline AdvReac Unknown Rash Verified 05/23/18 19:54 - MEDICATIONS Home Medications: Ambulatory Orders Medication Instructions Recorded Confirmed predniSONE [Deltasone] 5 mg PO DAILY 12/20/12 05/23/18 Methotrexate 20 mg PO .MON MDD Takes once weekly 02/12/15 05/24/18 Omeprazole [PriLOSEC] 20 mg PO DAILY 02/25/16 05/23/18 Propranolol ER [Inderal LA] 80 mg PO BID 03/02/17 05/23/18 Calcium Carbonate/Vitamin D3 1 each PO DAILY 05/24/18 05/24/18 [Calcium 500 mg-Vit D3 600 Unit] Cranberry 500 mg PO DAILY 05/24/18 05/24/18 Lutein 20 mg PO DAILY 05/24/18 05/24/18 Multivitamin [Multiple Vitamins] 1 each PO DAILY 05/24/18 05/24/18 Vitamin B Complex 1 tab PO DAILY 05/24/18 05/24/18 - PHYSICAL EXAM AT DISCHARGE General Appearance: positive: No acute distress, Alert. negative: Lethargic Eyes Bilateral: positive: Normal inspection, PERRL, No lid inflammation, Conjunctivae nml ENT: positive: ENT inspection nml, Pharynx nml, No signs of dehydration. negative: Purulent nasal drainage, Pharyngeal erythema, Oral lesions Neck: positive: Nml inspection, Thyroid nml, No JVD, Trachea midline. negative: Thyromegaly, Lymphadenopathy (L), Stiff neck, Swelling/bruising, Tracheal deviation Respiratory: positive: Chest non-tender, No respiratory distress, Breath sounds nml. negative: Wheezes, Rales, Rhonchi Cardiovascular: positive: Regular rate & rhythm, No murmur, No gallop. negative: Irregularly irregular, Extrasystoles, Tachycardia, Bradycardia, JVD present, Systolic murmur Peripheral Pulses: positive: 2+ Abdomen: positive: Non-tender, No organomegaly, Nml bowel sounds, No distention. negative: Tenderness, Guarding, Rebound Back: positive: Nml inspection. negative: CVA tenderness (R), CVA tenderness (L) Skin: positive: Color nml, No rash, Warm, Dry. negative: Cyanosis, Diaphoresis, Pallor Extremities: positive: Non-tender, Full ROM, Nml appearance. negative: Calf tenderness, Joint swelling, Sherry's sign/cords Neurologic/Psychiatric: positive: Oriented x3, Motor nml, Sensation nml, M ood/affect nml. negative: Weakness, Sensory loss, Facial droop, Slurred/abnml speech, Depressed mood/affect - LABS Result Diagrams: 05/25/18 05:15 05/25/18 05:15 - SEPSIS Current Stage of Sepsis: Ruled out - FOLLOW UP Follow Up: You may followup your PCP in one week, followup your surgeon as out-pt to discuss the recurrence issue of bowel obstruction. Your bowel obstruction is resolved by your own. Your home medications remain the same. Should your symptoms return or worsen, you may call 911, your PCP or present ER for help. - TIME SPENT Time Spent in Discharge (Minutes): 45"
== END 2018-05-25 14:00 | disposition home or self-care (01) | DRG 390 ==
LOC: EDUNIT# → ED 19:46 → MS2 22:01
PROVIDERS: ADMIT Family Medicine Sports Medicine; ATTEND Nurse Practitioner Gerontology
DX: K56.51 Intestinal adhesions [bands], with partial obstruction (principal); M05.79 Rheumatoid arthritis with rheumatoid factor of multiple sites without organ or systems involvement; K21.9 Gastro-esophageal reflux disease without esophagitis; Z85.038 Personal history of other malignant neoplasm of large intestine; Z90.49 Acquired absence of other specified parts of digestive tract; Z87.891 Personal history of nicotine dependence; Z79.899 Other long term (current) drug therapy; Z90.710 Acquired absence of both cervix and uterus; Z79.52 Long term (current) use of systemic steroids
CPT/HCPCS: 36415; 74177; 80048; 80053; 81001; 81003; 82378; 83690; 85025; 85027; 87077; 87086; 87181; 96365; 96372; 99284

== ENCOUNTER 2019-07-06 19:40 | Inpatient (IN) | payer MEDICARE, OTHER ==
--- NOTE | 2019-07-06 20:01 | ED Physician Documentation ---
PD HPI ABD PAIN - Stated complaint Stated Complaint: CONSTIPATION - Chief complaint Chief Complaint: Abd Pain - History obtained from History obtained from: Patient - History of Present Illness Timing - onset: Other (After having a large birthday dinner a few days ago she stopped having bowel movements. She is uncomfortable. She has not had any vomiting. She tried magnesium citrate and Colace without relief.) Review of Systems Ten Systems: 10 systems reviewed and negative Constitutional: denies: Fever, Chills Respiratory: denies: Dyspnea, Cough GI: reports: Abdominal Pain, Constipation. 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: Other : Incontinence HEENT: Chronic vision loss Psych: None Musculoskeletal: Rheumatoid arthritis Derm: None - Past Surgical History Past Surgical History: Yes General: Cholecystectomy, Appendectomy, Bowel surgery, Colonoscopy Ortho: Arthroscopic surgery /TEACHERS' ASSISTANT: Hysterectomy - Present Medications Home Medications: Ambulatory Orders Medication Instructions Recorded Confirmed predniSONE [Deltasone] 5 mg PO DAILY 12/20/12 07/07/19 Methotrexate 25 mg SQ SA 02/12/15 07/07/19 Omeprazole [PriLOSEC] 20 mg PO DAILY 02/25/16 07/07/19 Propranolol ER [Inderal LA] 80 mg PO BID 03/02/17 07/07/19 Calcium Carbonate/Vitamin D3 1 each PO DAILY 05/24/18 07/07/19 [Calcium 500 mg-Vit D3 600 Unit] Cranberry 500 mg PO DAILY 05/24/18 07/07/19 Lutein 20 mg PO DAILY 05/24/18 07/07/19 Multivitamin [Multiple Vitamins] 1 each PO DAILY 05/24/18 07/07/19 Vitamin B Complex 1 tab PO DAILY 05/24/18 07/07/19 Polyethylene Glycol 3350 [Miralax] 17 gm PO DAILY PRN #1 bottle 07/06/19 - Allergies Allergies/Adverse Reactions: Allergies Allergy/AdvReac Type Severity Reaction Status Date / Time meperidine HCl * AdvReac Unknown Hallucinati Verified 07/06/19 19:56 [From Demerol] ons morphine AdvReac Unknown Dizziness Verified 07/06/19 19:56 Penicillins AdvReac Unknown Rash Verified 07/06/19 19:56 Sulfa (Sulfonamide AdvReac Unknown Rash Verified 07/06/19 19:56 Antibiotics) tetracycline AdvReac Unknown Rash Verified 07/06/19 19:56 - Social History Does the pt smoke?: No Smoking Status: Former smoker Does the pt drink ETOH?: No Does the pt have substance abuse?: No - Family History Family history: reports: Non contributory - Immunizations Immunizations are current?: Yes - POLST Patient has POLST: No POLST Status: Full Code PD ED PE NORMAL - Vitals Vital signs reviewed: Yes - General General: Alert and oriented X 3, No acute distress - Respiratory Respiratory: No respiratory distress, Clear bilaterally - Abdomen Abdomen: Soft, Other (Mild diffuse tenderness without surgical signs, diminished but not absent bowel tones.) - Rectal Rectal: Other (Tight rectal opening with a fecal impaction, enema placed during exam.) - Derm Derm: Normal color, Warm and dry - Extremities Extremities: No edema, No calf tenderness / cord - Neuro Neuro: Alert and oriented X 3, Normal speech - Psych Psych: Normal mood, Normal affect Results - Vitals Vitals: Vital Signs - 24 hr 07/06/19 07/06/19 07/06/19 19:44 21:50 23:03 Temperature 36 C L Heart Rate 57 L 62 54 L Respiratory 18 18 17 Rate Blood Pressure 129/52 L 155/82 H 155/63 H O2 Saturation 98 97 97 Oxygen O2 Source Room air - Labs Labs: Laboratory Tests 07/06/19 07/06/19 21:50 21:50 WBC 18.6 H RBC 4.78 Hgb 14.4 Hct 45.0 MCV 94.1 MCH 30.1 MCHC 32.0 RDW 17.1 H Plt Count 246 MPV 10.2 Neut # (Auto) 15.4 H Lymph # (Auto) 1.4 L Nuckolls # (Auto) 1.3 H Eos # (Auto) 0.3 Baso # (Auto) 0.1 Absolute Nucleated RBC 0.00 Nucleated RBC % 0.0 Sodium 137 Potassium 4.2 Chloride 99 L Carbon Dioxide 26 Anion Gap 12.0 BUN 23 H Creatinine 0.7 Estimated GFR (MDRD) 81 L Glucose 138 H Calcium 10.1 Total Bilirubin 0.8 AST 29 ALT 35 Alkaline Phosphatase 32 L Total Protein 7.2 Albumin 4.6 Globulin 2.6 Albumin/Globulin Ratio 1.8 Lipase 28 PD MEDICAL DECISION MAKING - ED course ED course: After an enema she had a large bowel movement and started to feel much better. She briefly had some vomiting and was given some Zofran 2. On reexamination prior to discharge she was feeling better and nontender. However prior to discharge she vomited again, so I started become more worried about a bowel obstruction. Care to Dr Kilpatrick at shift change to followup on pending labs/CT. Departure - Departure Disposition: ED Place in Observation Clinical Impression: Small bowel obstruction Condition: Good Record reviewed to determine appropriate education?: Yes Discharge Date/Time: 07/07/19 00:12
[2019-07-06] MEDS ORDERED: ONDANSETRON ODT 4 MG TABLET TL STA (20:33)
[2019-07-06] MEDS ORDERED: PANTOPRAZOLE 40 MG TABLET PO STA (20:33)
--- NOTE | 2019-07-06 21:45 | ED Physician Documentation ---
ED Addendum - Addendum Addendum: Patient signed out to me from Dr. Dillard. 79 year old female presenting with constipation and vomiting. She has a history of past bowel obstructions, she has had colon cancer status post resection as well as a transabdominal hysterectomy. She was disimpacted here but still having vomiting, so labs and CT pending. Labs show a leukocytosis, otherwise unrevealing. Her CT scan shows a bowel obstruction with a transition point in the presacral area. No obvious signs of infection or other acute abdominal pathology. I spoke with Dr. Hu of general surgery who will follow patient, and she was admitted to the medicine service for treatment of her obstruction. At the time of admission she is in minimal discomfort, having no active vomiting, and her abdomen is benign, she does have mild tenderness in the epigastric region. I discussed the plan of care with the patient who is in agreement. She is not excited about an NG tube, I discussed with her that if she has further vomiting she will likely need one. She is hemodynamically stable. Departure - Departure Disposition: ED Place in Observation Clinical Impression: Small bowel obstruction Condition: Good Discharge Date/Time: 07/07/19 00:12
[2019-07-06 21:58] LABS: BASOPHILS # (AUTO) 0.1 10^3/uL (0.0-0.1); BASOPHILS % (AUTO) 0.5 %; EOSINOPHILS # (AUTO) 0.3 10^3/uL (0.0-0.7); EOSINOPHILS % (AUTO) 1.3 %; HGB - HEMOGLOBIN 14.4 g/dL (12.0-16.0); LYMPHOCYTES # (AUTO) 1.4 10^3/uL (1.5-3.5); LYMPHOCYTES % (AUTO) 7.7 %; MEAN CORPUSCULAR HEMOGLOBIN 30.1 pg (27.0-31.0); MEAN CORPUSCULAR VOLUME 94.1 fL (81.0-99.0); MEAN PLATELET VOLUME 10.2 fL (7.9-10.8); MONOCYTES # (AUTO) 1.3 10^3/uL (0.0-1.0); MONOCYTES % (AUTO) 6.9 %; NEUTROPHILS # (AUTO) 15.4 10^3/uL (1.5-6.6); NEUTROPHILS % (AUTO) 82.7 %; PLT - PLATELET COUNT 246 10^3/uL (130-450); RED BLOOD COUNT 4.78 10^6/uL (4.20-5.40); RED CELL DISTRIBUTION WIDTH 17.1 % (12.0-15.0); WHITE BLOOD COUNT 18.6 x10^3/uL (4.8-10.8)
[2019-07-06] MEDS ORDERED: IOVERSOL 320 100 ML VIAL IVP ONE ×2 (22:13→22:51)
[2019-07-06 22:14] LABS: ALBUMIN 4.6 g/dL (3.2-5.5); ALBUMIN/GLOBULIN RATIO 1.8 (1.0-2.2); BILIRUBIN,TOTAL 0.8 mg/dL (0.2-1.0); CALCIUM 10.1 mg/dL (8.5-10.3); CREATININE 0.7 mg/dL (0.4-1.0); TOTAL PROTEIN 7.2 g/dL (6.7-8.2)
[2019-07-06] MEDS ORDERED: SODIUM CHLORIDE 0.9% 1,000 ML IV ONE (22:42)
--- NOTE | 2019-07-06 22:59 | CT Report ---
Reason: vomiting Procedure Date: 07/06/2019 Accession Number: [id number] / [id number] Procedure: CT - Abdomen/Pelvis W CPT Code: Final Report FULL RESULT: EXAM: CT ABDOMEN AND PELVIS EXAM DATE: 07/06/2019 10:37 PM. CLINICAL HISTORY: Vomiting. COMPARISONS: ABDOMEN/PELVIS W/ 05/23/2018 8:56 PM. TECHNIQUE: Routine helical CT imaging was performed through the abdomen and pelvis. IV contrast: 100 mL Optiray 320. Enteric contrast: No. Reconstructions: Coronal and sagittal. In accordance with CT protocol optimization, one or more of the following dose reduction techniques were utilized for this exam: automated exposure control, adjustment of mA and/or KV based on patient size, or use of iterative reconstructive technique. FINDINGS: Lung Bases: Unremarkable. Liver: Normal. No masses. Gallbladder/Bile Ducts: The gallbladder has been removed. There is no bile duct obstruction. Spleen: Normal. Pancreas: Normal. Adrenal Glands: Normal. Kidneys: Normal. No masses or hydronephrosis. Peritoneal Cavity/Bowel: Status post distal colon resection. There is stable presacral soft tissue thickening likely secondary to scarring. There is collapse of the terminal ileum which appears tethered to the right presacral soft tissue thickening. Mild upstream small bowel dilatation is present. No associated fluid collections. No pneumoperitoneum. No evidence of appendicitis. There is a fat-containing umbilical hernia. Pelvic Organs: The uterus has been removed. No pelvic mass, lymphadenopathy or fluid collection. The urinary bladder is unremarkable. Vasculature: No aneurysms or other significant abnormality. Bones: No significant abnormality. Other: None. IMPRESSION: 1. Distal small bowel obstruction with transition point in the region of the right presacral soft tissue thickening likely secondary to adhesions, similar to the previous exam. 2. No pneumatosis or fluid collections. RADIA
[2019-07-06] MEDS ORDERED: SODIUM CHLORIDE FLUSH 0.9% 10 ML SYRINGE IVP PRN (23:50)
[2019-07-06] MEDS ORDERED: METOPROLOL 5 MG/5 ML VIAL IVP PRN (23:54)
[2019-07-06] MEDS ORDERED: diphenhydrAMINE INJ 50 MG/ML VIAL IVP STA (23:55)
--- NOTE | 2019-07-07 00:07 | HISTORY & PHYSICAL EXAMINATION ---
Chief Complaint - Chief Complaint Chief Complaint: Constipation History of Present Illness - Admitted From Admitted From:: Home - History Obtained From Records Reviewed: Yes History obtained from: Patient, ER Physician, EMR - History of Present Illness HPI Comment/Other: This is a pleasant 79-year-old female with a past medical history significant f or colon cancer in the early 1999 status post resection, prior history of small bowel obstruction, rheumatoid arthritis, essential tremor who presents today complaining of constipation and abdominal pain. She reports the abdominal pain is located in the middle of her abdomen and is diffuse in nature. The pain is mild. She reports her last bowel movement was on . She did not have any nausea or vomiting prior to arrival in the emergency department. She reports no chest pain or dyspnea. Denies any sick contacts and reports no fevers or chills. She states she has had obstructions in the past that required hospitalization but has not required surgery. She has had prior abdominal surgeries including resection of the distal portion of her colon for the colon cancer. She has also had a hysterectomy, appendectomy, and cholecystectomy. In the emergency department, she is on to be afebrile with temperature of 36 C. Her heart rate was in the 50s. Her blood pressure was 129/52. She was not tachypneic and saturating well on room air. It was initially felt that she had a fecal impaction and therefore she was disimpacted in the emergency department. She had a large bowel but then began to have a large episode of emesis. Labs were then checked which revealed a white count of 10.6 a left shift. Her basic metabolic panel was unremarkable. She then underwent a CT of the abdomen and pelvis which showed distal small bowel obstruction with transition point in the region of the right presacral soft tissue thickening likely secondary to adhesions. This is similar in appearance to her prior CT scans. Given these findings, the emergency department spoke with the general surgeon on-call who recommended placing an NG tube. Medicine was then consulted for admission. I did discuss goals of care with the patient and she would like to be a full code. 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 Living arrangement: At home Living Situation: With spouse/s.o. 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 Moved to [facility] in 2001 after she retired. She did smoke for 13 years but quit at the age of 31. She denies any alcohol use. She is independent with her ADLs. - Substance History Use: Uses substance without health or social issues: NONE - POLST Patient has POLST: No POLST Status: Full Code Meds/Allgy - Home Medications Home Medications: Ambulatory Orders Medication Instructions Recorded Confirmed predniSONE [Deltasone] 5 mg PO DAILY 12/20/12 09/28/18 Methotrexate 25 mg SQ ONCE MDD Takes once weekly 02/12/15 05/24/18 Omeprazole [PriLOSEC] 20 mg PO DAILY 02/25/16 05/23/18 Propranolol ER [Inderal LA] 80 mg PO BID 03/02/17 05/23/18 Calcium Carbonate/Vitamin D3 1 each PO DAILY 05/24/18 05/24/18 [Calcium 500 mg-Vit D3 600 Unit] Cranberry 500 mg PO DAILY 05/24/18 05/24/18 Lutein 20 mg PO DAILY 05/24/18 05/24/18 Multivitamin [Multiple Vitamins] 1 each PO DAILY 05/24/18 05/24/18 Vitamin B Complex 1 tab PO DAILY 05/24/18 05/24/18 Polyethylene Glycol 3350 [Miralax] 17 gm PO DAILY PRN #1 bottle 07/06/19 - Allergies Allergies/Adverse Reactions: Allergies Allergy/AdvReac Type Severity Reaction Status Date / Time meperidine HCl * AdvReac Unknown Hallucinati Verified 07/06/19 19:56 [From Demerol] ons morphine AdvReac Unknown Dizziness Verified 07/06/19 19:56 Penicillins AdvReac Unknown Rash Verified 07/06/19 19:56 Sulfa (Sulfonamide AdvReac Unknown Rash Verified 07/06/19 19:56 Antibiotics) tetracycline AdvReac Unknown Rash Verified 07/06/19 19:56 Review of Systems - Constitutional Constitutional: denies: Fatigue, Fever, Chills, Weakness, Poor appetite - Cardiovascular Cariovascular: denies: Chest pain, Exertional dyspnea, Decr. exercise tolerance - Respiratory Respiratory: denies: Cough, SOB at rest, SOB with exertion - Gastrointestinal Gastrointestinal: reports: Abdominal pain, Constipation, Nausea, Vomiting. denies: Diarrhea, Ricardo blood emesis - Genitourinary Genitourinary: denies: Dysuria, Frequency, Urgency, Hematuria - Musculoskeletal Musculoskeletal: denies: Muscle pain - Integumentary Integumentary: denies: Rash - Neurological Neurological: denies: General weakness, Focal weakness - Hematologic/Lymphatic Hematologic/Lymphatic: denies: Bleeding tendencies - All Other Systems All Other Systems: reports: Reviewed and negative Prior Level of Functionality: She is independent with her ADLs. Exam - Vital Signs Reviewed Vital Signs: Yes Vital Signs: Vital Signs x48h Temp Pulse Resp BP Pulse Ox 07/06/19 23:03 54 L 17 155/63 H 97 07/06/19 21:50 62 18 155/82 H 97 07/06/19 19:44 36 C L 57 L 18 129/52 L 98 - Physical Exam General Appearance: positive: No acute distress, Alert Eyes Bilateral: positive: Normal inspection, Conjunctivae nml ENT: positive: ENT inspection nml Neck: positive: Nml inspection Respiratory: positive: No respiratory distress Cardiovascular: positive: Regular rate & rhythm, No murmur. negative: T achycardia, Bradycardia Abdomen: positive: Nml bowel sounds, No distention, Tenderness (There is mild tenderness on palpation in the right lower quadrant.). negative: Guarding, Rebound Skin: positive: No rash, Warm, Dry Extremities: positive: Full ROM, No pedal edema Neurologic/Psychiatric: positive: Oriented x3, Motor nml, Disoriented to person, Disoriented to place, Disoriented to time Conclusion/Plan - Problem List (1) Small bowel obstruction Conclusion/Plan: There is evidence of small bowel obstruction on CT the abdomen pelvis with a transition point. All of her prior CT scans show the same obstruction at the same site. She has had multiple episodes of obstruction in the past is all likely due to her adhesions from prior abdominal interventions. Given she did have vomiting, we will place her in observation. General surgery was contacted emergency department and recommended placing a NG tube. I did discuss with the patient but she preferred to hold off on having it placed in the meantime and to reassess in the morning. I feel this is reasonable given she is not actively vomiting and her abdominal pain is improving. I did let her know that if she does have another episode of emesis then we will have no choice but to place a NG tube. We will keep her n.p.o. for the time being. Place her on Protonix IV. Hydration with IV lactated Ringer's. Her pain is well controlled at the moment and she reports multiple allergies to opiates so we will use IV Tylenol if need be. She may require small bowel follow-through if her vomiting persists. General surgery has been consulted and appreciate their recommendations. (2) Leukocytosis Conclusion/Plan: Her white count is elevated at 18.6 with a left shift but she has no obvious signs of infection. Suspect this is likely reactive in nature. We will trend her white count. We will hold off on antibiotics the moment as there is no indication. (3) Rheumatoid arthritis Conclusion/Plan: She is on chronic prednisone and takes methotrexate every Monday. We will r esume her oral prednisone when she is taking p.o. She remains n.p.o. for more than 1 day, she may require IV Solu-Medrol. (4) Essential tremor Conclusion/Plan: She is on propanolol at home. We will dose for the time being given she is n.p.o. We will try with Lopressor IV as needed in the meantime. - Lab Results Lab results reviewed: Yes Bryce Bones: 07/06/19 21:50 07/06/19 21:50 - Diagnostic Imaging Results Diagnostic Imaging Results: positive: Final report reviewed Core Measures - Anticipated LOS I expect patient to be DC'd or transferred within 96 hours.: Yes - Issues Hospital Issues and Management Plan: 79-year-old female with recurrent small bowel obstruction. She will be admitted under observation. We will place an NG tube and consult general surgery. She may require small bowel follow-through study. - DVT/VTE - Prophylaxis VTE/DVT Device ordered at admit?: Yes VTE/DVT Prophylaxis med ordered at admit?: Yes
[2019-07-07] MEDS ORDERED: FAMOTIDINE 20 MG/2 ML VIAL IVP STA (00:30)
[2019-07-07] MEDS: LACTATED RINGERS 1,000 ML IV SCH ×3 (00:38→21:27)
[2019-07-07] MEDS: SODIUM CHLORIDE FLUSH 0.9% 10 ML SYRINGE IVP SCH ×3 (01:37→18:04)
[2019-07-07] MEDS: ACETAMINOPHEN 1,000 MG/100 ML 100 ML IV PRN ×3 (01:37→19:28)
[2019-07-07 05:40] LABS: BASOPHILS # (AUTO) 0.1 10^3/uL (0.0-0.1); BASOPHILS % (AUTO) 0.5 %; EOSINOPHILS # (AUTO) 0.1 10^3/uL (0.0-0.7); EOSINOPHILS % (AUTO) 0.8 %; HGB - HEMOGLOBIN 12.8 g/dL (12.0-16.0); LYMPHOCYTES # (AUTO) 0.9 10^3/uL (1.5-3.5); LYMPHOCYTES % (AUTO) 6.9 %; MEAN CORPUSCULAR HEMOGLOBIN 31.2 pg (27.0-31.0); MEAN CORPUSCULAR HGB CONC 32.7 g/dL (32.0-36.0); MEAN CORPUSCULAR VOLUME 95.4 fL (81.0-99.0); MEAN PLATELET VOLUME 9.6 fL (7.9-10.8); MONOCYTES # (AUTO) 1.1 10^3/uL (0.0-1.0); MONOCYTES % (AUTO) 8.7 %; NEUTROPHILS # (AUTO) 10.6 10^3/uL (1.5-6.6); NEUTROPHILS % (AUTO) 82.5 %; PLT - PLATELET COUNT 176 10^3/uL (130-450); RED CELL DISTRIBUTION WIDTH 16.6 % (12.0-15.0); WHITE BLOOD COUNT 12.9 x10^3/uL (4.8-10.8)
[2019-07-07 05:53] LABS: CALCIUM 8.7 mg/dL (8.5-10.3); CREATININE 0.5 mg/dL (0.4-1.0); MAGNESIUM 2.7 mg/dL (1.7-2.8); PHOSPHORUS 3.4 mg/dL (2.5-4.6)
[2019-07-07] MEDS: PANTOPRAZOLE 40 MG VIAL IVP SCH (06:28)
[2019-07-07] MEDS: KETOROLAC 15 MG/ML VIAL IVP PRN ×2 (07:04→14:34)
[2019-07-07] MEDS: ONDANSETRON 4 MG/2 ML VIAL IVP PRN ×2 (07:05→15:07)
[2019-07-07] MEDS ORDERED: HEPARIN 5,000 UNIT/ML VIAL SUBQ SCH (09:00)
[2019-07-07] MEDS ORDERED: diphenhydrAMINE INJ 50 MG/ML VIAL IVP PRN (09:29)
[2019-07-07] MEDS ORDERED: PROCHLORPERAZINE 10 MG/2 ML VIAL IVP PRN (09:30)
--- NOTE | 2019-07-07 10:25 | PHARMACY PROGRESS NOTE ---
- Best Possible Medication History Admit Date and Time: 07/06/19 7652 Processed by: Pharmacy Medication History completed: Yes Patient Interview: Completed Secondary Source(s): Pharmacy records, Insurance records As the person ultimately responsible for medication therapy, providers are able to order a medication from an existing home medication list in [facility] via the "Reconcile Routine" prior to Confirmation of that medication by senior office support assistant sosa. Such practice is discouraged except when the physician, in their clinical judgment, deems that a medical need exists for a medication without regard to previous use.
--- NOTE | 2019-07-07 10:52 | CONSULTATION NOTE ---
Referring Provider Name of Referring Provider:: ED Chief Complaint - Chief Complaint Chief Complaint: small bowel obstruction History of Present Illness - Admitted From Admitted From:: ED - History Obtained From History obtained from: patient and chart - History of Present Illness HPI Comment/Other: 79yo F presents with symptoms consistent with SBO. She has had before and stayed at home for 2-3 days with no BM and increasing nausea before coming in to ED. There, she had a BM but also a vomiting episode. CT shows a distal SB tra nsition point deep in pelvis; this is same area as prior CTs, last admission from 2018. 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 She is non-toxic, labs normal save a leukocytosis which appears reactive as she has no signs of ischemia/ perforation/ infection. It has improved this AM. She was reticent to have an NGT placed initially and she did vomit again but says 'it hurt too much so I made them stop' on the attempt at placement. She says she is feeling better, volume of emesis is lessened, and she has no current nausea or pain. Pt is a reasonable historian but has some gaps and demonstrates circuitous answers to some questions. She states she 'just wants this taken care of.' On my chart review, she has images from 2018, 2017, 2015, and 2011. She is unsure of dates but does not go to other hospitals with these symptoms so it seems this problem has recurred but only a handful of times over the past decade. She has RA and has been on prednisone since 1982. She is now also on methotrexate. She is fairly independent but does not walk much due to her feet hurting; she does get a little SOB with exertion. History - Past Medical History Cardiovascular: reports: None Respiratory: reports: Pneumonia, Other Neuro: reports: None Endocrine/Autoimmune: reports: None GI: reports: GERD, Chronic diarrhea, Chronic constipation, Other MOTHER REPAIRER: reports: Other : reports: Incontinence HEENT: reports: Chronic vision loss Psych: reports: None Musculoskeletal: reports: Rheumatoid arthritis Derm: reports: Other (BCC on nose) MRSA Hx?: No Other Past Medical History: skin pseudomonas, SBO - Past Surgical History General: reports: Cholecystectomy, Appendectomy (open ), Bowel surgery (CRC- distal colon resection (2002)), Colonoscopy (no longer gets surveillance scopes) Ortho: reports: Arthroscopic surgery /MOTHER REPAIRER: reports: Hysterectomy HEENT: reports: Cataracts Derm: reports: Skin cancer surgery - Family & Social History Family History Comment/Other: She reports family history of diabetes otherwise no medical history to her knowledge. Living arrangement: At home Living Situation: With spouse/s.o. 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 Moved to [facility] in 2001 after she retired. She did smoke for 13 years but quit at the age of 31. She denies any alcohol use. She is independent with her ADLs. - Substance History Use: Uses substance without health or social issues: NONE - POLST Patient has POLST: No POLST Status: Full Code Meds/Allgy - Home Medications Home Medications: Ambulatory Orders Medication Instructions Recorded Confirmed predniSONE [Deltasone] 5 mg PO DAILY 12/20/12 07/07/19 Omeprazole [PriLOSEC] 20 mg PO DAILY 02/25/16 07/07/19 Propranolol ER [Inderal LA] 80 mg PO BID 03/02/17 07/07/19 Calcium Carbonate/Vitamin D3 1 each PO DAILY 05/24/18 07/07/19 [Calcium 500 mg-Vit D3 600 Unit] Cranberry 500 mg PO DAILY 05/24/18 07/07/19 Lutein 20 mg PO DAILY 05/24/18 07/07/19 Multivitamin [Multiple Vitamins] 1 each PO DAILY 05/24/18 07/07/19 Vitamin B Complex 1 tab PO DAILY 05/24/18 07/07/19 Methotrexate Sodium/Pf 25 mg SUBQ MO 07/07/19 07/07/19 [Methotrexate 50 mg/2 ml Vial] - Allergies Allergies/Adverse Reactions: Allergies Allergy/AdvReac Type Severity Reaction Status Date / Time meperidine HCl * AdvReac Unknown Hallucinati Verified 07/06/19 19:56 [From Demerol] ons morphine AdvReac Unknown Dizziness Verified 07/06/19 19:56 Penicillins AdvReac Unknown Rash Verified 07/06/19 19:56 Sulfa (Sulfonamide AdvReac Unknown Rash Verified 07/06/19 19:56 Antibiotics) tetracycline AdvReac Unknown Rash Verified 07/06/19 19:56 Review of Systems - Cardiovascular Cariovascular: denies: Palpitations, Chest pain - Respiratory Respiratory: reports: SOB with exertion - Gastrointestinal Gastrointestinal: reports: Abdominal pain, Change in bowel habits (obstipation), Nausea, Vomiting - Musculoskeletal Musculoskeletal: reports: Joint pain - Integumentary Integumentary: reports: Other (skin cancers) - All Other Systems All Other Systems: reports: Reviewed and negative Exam - Vital Signs Vital Signs: Vital Signs x48h Temp Pulse Resp BP Pulse Ox 07/07/19 07:30 36.8 C 62 16 149/78 H 94 07/07/19 05:08 37.3 C 63 16 154/65 H 95 - Physical Exam Comments/Other: AAO with some memory gaps, NAD, elderly female of healthy weight EOMI, no scleral icterus; dry lips, poor dentition with no missing teeth unlabored RA soft, minimal distension, mild ttp pelvis with no rebound/ guarding MAEW, soft calves skin warm and dry; 3mm open sore on left nose c/w BCC Conclusion and Plan - Lab Results Laboratory Results 07/07/19 05:05: Sodium 138, Potassium 3.8, Chloride 105, Carbon Dioxide 24, Anion Gap 9.0, BUN 19, Creatinine 0.5, Estimated GFR (MDRD) 119, Glucose 124 H, Calcium 8.7, Phosphorus 3.4, Magnesium 2.7 07/07/19 05:05: WBC 12.9 H, RBC 4.10 L, Hgb 12.8, Hct 39.1, MCV 95.4, MCH 31.2 H, MCHC 32.7, RDW 16.6 H, Plt Count 176, MPV 9.6, Neut # (Auto) 10.6 H, Lymph # (Auto) 0.9 L, [place] # (Auto) 1.1 H, Eos # (Auto) 0.1, Baso # (Auto) 0.1, Absolute Nucleated RBC 0.00, Nucleated RBC % 0.0 07/06/19 21:50: Sodium 137, Potassium 4.2, Chloride 99 L, Carbon Dioxide 26, Anion Gap 12.0, BUN 23 H, Creatinine 0.7, Estimated GFR (MDRD) 81 L, Glucose 138 H, Calcium 10.1, Total Bilirubin 0.8, AST 29, ALT 35, Alkaline Phosphatase 32 L, Total Protein 7.2, Albumin 4.6, Globulin 2.6, Albumin/Globulin Ratio 1.8, Lipase 28 07/06/19 21:50: WBC 18.6 H, RBC 4.78, Hgb 14.4, Hct 45.0, MCV 94.1, MCH 30.1, MCHC 32.0, RDW 17.1 H, Plt Count 246, MPV 10.2, Neut # (Auto) 15.4 H, Lymph # (Auto) 1.4 L, [place] # (Auto) 1.3 H, Eos # (Auto) 0.3, Baso # (Auto) 0.1, Absolute Nucleated RBC 0.00, Nucleated RBC % 0.0 - Diagnostic Imaging Results Diagnostic Imaging Results: positive: Final report reviewed, Read contemporaneously - Plan Plan: SBO - recurrent but intermittent - pt non-toxic, reactive leukocytosis improving, vitals nl - pt stopped NGT placement due to discomfort --> she is not currently nauseated and says her abd feels better --> she is agreeable to trying placement again if she does get nauseated or distended- and she will let her nurse know- and we have discussed using throat numbing spray to aid (she requests 'half a benadryl- it puts me out for 6 hours' and I explained we do not want that result) --> hopefully pt will decompress and obstruction will relieve; surgery not indicated now and likely will not be during this admission - we discussed elective surgery at patient's request: I explained that currently with swollen and irritated bowels this is not ideal. I also explained that this would be a big surgery- large incision, long duration due to scar tissue expected from her three pelvic surgeries and the location of the transition point deep in her pelvis along presacral tissue. She would be in the hospital recovering for a long time and has a high likelihood of wound complications and almost assured enterotomies which may not heal well given her age, the hit such a surgery, and her many decades of prednisone. She could become severely ill, have fistulas, have prolonged intubation or ICU stays, and she could . Also, this has only happened a few times since 2010, so her quality of life currently is not severely compromised. She states she understands. - SCDs, lovenox - ambulate with assistance, be OOB, use IS - ok for small volume water sips and ice chips, preferably if NGT in place - [facility]
--- NOTE | 2019-07-07 13:38 | PROVIDER PROGRESS NOTE ---
Subjective - Prog Note Date Prog Note Date: 07/07/19 Prog Note Time: 13:35 - Subjective Pt reports feeling: No change Subjective: Verónica states she is currently pain free, but had just had an episode of vomiting. She continues to refuse the placement of an NG tube as they cause her discomfort. She states she "just wants to get surgery over with", since she has had several episodes in her life and is convinced that this happens one more time it will kill her. She denies chest pain, a new rash, confusion, a new cough, bleeding, or dizziness. She notes that she takes Aleve regularly and requests this to be resumed after she can take oral pills. Current Medications - Current Medications Current Medications: Active Medications: Diphenhydramine HCl (Benadryl Inj) 25 mg IVP Q6H PRN Lactated Ringer's (Lr) 1,000 mls @ 100 mls/hr IV .Q10H REGI Acetaminophen (Ofirmev) 100 mls @ 400 mls/hr IV Q6HR PRN Ketorolac Tromethamine (Toradol Inj (15mg) 15 mg IVP Q6HR PRN Metoprolol Tartrate (Lopressor Inj) 5 mg IVP Q6H PRN Ondansetron HCl (Zofran Inj) 4 mg IVP Q6HR PRN Pantoprazole Sodium (Protonix) 40 mg IVP QDAC REGI Prochlorperazine Edisylate (Compazine Inj) 10 mg IVP Q6HR PRN HOME meds: predniSONE [Deltasone] 5 mg PO DAILY 12/20/12 Omeprazole [PriLOSEC] 20 mg PO DAILY 02/25/16 Propranolol ER [Inderal LA] 80 mg PO BID 03/02/17 Calcium Carbonate/Vitamin D3 1 each PO DAILY 05/24/18 Cranberry 500 mg PO DAILY 05/24/18 Lutein 20 mg PO DAILY 05/24/18 Multivitamin [Multiple Vitamins] 1 each PO DAILY 05/24/18 Vitamin B Complex 1 tab PO DAILY 05/24/18 Methotrexate Sodium/Pf 25 mg SUBQ MO 07/07/19 Objective - Vital Signs/Intake & Output Reviewed Vital Signs: Yes Vital Signs: Vital Signs x48h Temp Pulse Resp BP Pulse Ox 07/07/19 12:09 37.2 C 68 16 127/50 L 94 07/07/19 07:30 36.8 C 62 16 149/78 H 94 Intake & Output: Intake & Output 07/04/19 07/05/19 07/06/19 07/07/19 23:59 23:59 23:59 23:59 Intake Total 1000 1078.333 Output Total 300 550 Balance 700 528.333 - Objective General Appearance: positive: Alert, Moderate distress, Anxious Eyes Bilateral: positive: No lid inflammation Eyes: OU Conjunctivae pale ENT: positive: Pharyngeal erythema, Dry mucous membranes Neck: positive: No JVD, Trachea midline Respiratory: positive: Chest non-tender, No respiratory distress, Other (diminished bilaterally) Cardiovascular: positive: Regular rate & rhythm, No gallop, Systolic murmur, Decreased pulse(s) Peripheral Pulses: 1+ Radial (R), 1+ Radial (L) Abdomen: positive: Tenderness, Guarding, Hepatomegaly, Other (rounded, obese, soft) Back: positive: Nml inspection Skin: positive: No rash, Warm, Dry, Pallor Extremities: positive: Non-tender, Full ROM, No pedal edema, Joint swelling Neurologic/Psychiatric: positive: Oriented x3, CN's nml (2-12), Motor nml, Sensation nml, Mood/affect nml, Depressed mood/affect (flat) Reflexes: Bicep (R): 3+, Bicep (L): 3+ - Lab Results Fish Bones: 07/07/19 05:05 07/07/19 05:05 Other Labs: Lab Results x24hrs 07/07/19 07/07/19 07/06/19 Range/Units 05:05 05:05 21:50 WBC 12.9 H (4.8-10.8) x10^3/uL RBC 4.10 L (4.20-5.40) 10^6/uL Hgb 12.8 (12.0-16.0) g/dL Hct 39.1 (37.0-47.0) % MCV 95.4 (81.0-99.0) fL MCH 31.2 H (27.0-31.0) pg MCHC 32.7 (32.0-36.0) g/dL RDW 16.6 H (12.0-15.0) % Plt Count 176 (130-450) 10^3/uL MPV 9.6 (7.9-10.8) fL Neut # (Auto) 10.6 H (1.5-6.6) 10^3/uL Lymph # (Auto) 0.9 L (1.5-3.5) 10^3/uL [place] # (Auto) 1.1 H (0.0-1.0) 10^3/uL Eos # (Auto) 0.1 (0.0-0.7) 10^3/uL Baso # (Auto) 0.1 (0.0-0.1) 10^3/uL Absolute Nucleated RBC 0.00 x10^3/uL Nucleated RBC % 0.0 /100WBC Sodium 138 137 (135-145) mmol/L Potassium 3.8 4.2 (3.5-5.0) mmol/L Chloride 105 99 L (101-111) mmol/L Carbon Dioxide 24 26 (21-32) mmol/L Anion Gap 9.0 12.0 (6-13) BUN 19 23 H (6-20) mg/dL Creatinine 0.5 0.7 (0.4-1.0) mg/dL Estimated GFR (MDRD) 119 81 L (>89) Glucose 124 H 138 H (70-100) mg/dL Calcium 8.7 10.1 (8.5-10.3) mg/dL Phosphorus 3.4 (2.5-4.6) mg/dL Magnesium 2.7 (1.7-2.8) mg/dL Total Bilirubin 0.8 (0.2-1.0) mg/dL AST 29 (10-42) IU/L ALT 35 (10-60) IU/L Alkaline Phosphatase 32 L (42-121) IU/L Total Protein 7.2 (6.7-8.2) g/dL Albumin 4.6 (3.2-5.5) g/dL Globulin 2.6 (2.1-4.2) g/dL Albumin/Globulin Ratio 1.8 (1.0-2.2) Lipase 28 (22-51) U/L 07/06/19 Range/Units 21:50 WBC 18.6 H (4.8-10.8) x10^3/uL RBC 4.78 (4.20-5.40) 10^6/uL Hgb 14.4 (12.0-16.0) g/dL Hct 45.0 (37.0-47.0) % MCV 94.1 (81.0-99.0) fL MCH 30.1 (27.0-31.0) pg MCHC 32.0 (32.0-36.0) g/dL RDW 17.1 H (12.0-15.0) % Plt Count 246 (130-450) 10^3/uL MPV 10.2 (7.9-10.8) fL Neut # (Auto) 15.4 H (1.5-6.6) 10^3/uL Lymph # (Auto) 1.4 L (1.5-3.5) 10^3/uL [place] # (Auto) 1.3 H (0.0-1.0) 10^3/uL Eos # (Auto) 0.3 (0.0-0.7) 10^3/uL Baso # (Auto) 0.1 (0.0-0.1) 10^3/uL Absolute Nucleated RBC 0.00 x10^3/uL Nucleated RBC % 0.0 /100WBC Sodium (135-145) mmol/L Potassium (3.5-5.0) mmol/L Chloride (101-111) mmol/L Carbon Dioxide (21-32) mmol/L Anion Gap (6-13) BUN (6-20) mg/dL Creatinine (0.4-1.0) mg/dL Estimated GFR (MDRD) (>89) Glucose (70-100) mg/dL Calcium (8.5-10.3) mg/dL Phosphorus (2.5-4.6) mg/dL Magnesium (1.7-2.8) mg/dL Total Bilirubin (0.2-1.0) mg/dL AST (10-42) IU/L ALT (10-60) IU/L Alkaline Phosphatase (42-121) IU/L Total Protein (6.7-8.2) g/dL Albumin (3.2-5.5) g/dL Globulin (2.1-4.2) g/dL Albumin/Globulin Ratio (1.0-2.2) Lipase (22-51) U/L ABX Reporting Has patient been on IV antibiotics over the past 48 hours?: No Assessment/Plan - Problem List (1) Small bowel obstruction Impression: -Records review notes recurrent SBO in 2010, 2012, 2017, 2018 & current admission -History of hysterectomy, colectomy for colon cancer in 2002 , a cholecystectomy -Status post chemotherapy with radiation -Imaging from admission shows evidence of a small bowel obstruction of abdomen pelvis with a transition point, in the same region as prior episodes -NPO, IV fluids, medications per IV for now -Multiple allergies in the chart, so IV Tylenol as needed -General surgery, Dr. Hu has been consulted, who recommends waiting for now as there is no clear indication (ischemic bowel, etc.) -Consider gastro-grafin study if this does not resolve by the AM Leukocytosis -WBC count is elevated at 18.6 -No acute signs of infection -Chronic steroid use may be contributing -Checking a UA given her history of recurrent UTIs -Routine labs Abdominal pain -Diffuse, in all 4 quadrants, intermittent and becomes worse just before vomiting -Denies bleeding, black stool -No changes in diet lately, ate at a restaurant for her birthday 3 days ago, finished the leftovers 24 hours later -Was not able to move her bowels since 07/05, digitally removed stool when arriving in the ED this AM Vomiting -The room smells of stool upon exam this AM -Patient has been vomiting foul smelling green, dark brown contents -Patient refusing an NG tube since admission -Surgery still recommends for decompression -Attempt every shift, allow patient to refuse NSAID long-term use -Patient requests that her Aleve be resumed after she can take pills again -She states she has taken this for several years for her chronic pain caused by her RA -Patient was unaware that the drug class of Aleve is NSAID -Also on long-term Prednisone (both NSAIDs and steroids have the same negative effects on GI mucosa) -Patient denies a history of GI bleeding -Recommend reducing at least this medication since she is also on chronic prednisone Rectal carcinoma -2002, status post colectomy, chemo and radiation -Considered to be in remission -Likely has residual bowel adhesions, causing recurrent SBOs Rheumatoid arthritis -Patient admits to taking prednisone since 1982 -Also has been taking methotrexate, which she takes every Monday -Holding prednisone today, will add IV steroid if needed depending on her NPO status -IV Tylenol as needed continues, toradol IV PRN Recurrent UTI -No urine collected on admission -Baseline urinary incontinence -Status hysterectomy -Patient admits to chronic dysuria -UA with culture if appropriate Essential tremor -Propanolol at home -No tremors noted on exam this morning -Metoprolol IV as needed
[2019-07-07 14:51] LABS: BILIRUBIN,URINE NEGATIVE (NEGATIVE); GLUCOSE, URINE (UA) NEGATIVE (NEGATIVE); KETONES,URINE (UA) NEGATIVE (NEGATIVE); LEUKOCYTE ESTERASE, URINE TRACE (NEGATIVE); NITRITE,URINE NEGATIVE (NEGATIVE); OCCULT BLOOD,URINE NEGATIVE (NEGATIVE); PH,URINE 5.5 PH (5.0-7.5); PROTEIN,URINE NEGATIVE (NEGATIVE); UROBILINOGEN,URINE 0.2 (NORMAL) E.U./dL (NORMAL)
[2019-07-07 14:52] LABS: CLARITY,URINE HAZY (CLEAR)
[2019-07-07 15:03] LABS: RBC,URINE 0-5 /HPF (0-5); SQUAMOUS EPITHELIAL CELL,UR FEW Squamous (<= Few)
[2019-07-07 15:04] LABS: BACTERIA,URINE Rare /HPF (None Seen)
[2019-07-08] MEDS: SODIUM CHLORIDE FLUSH 0.9% 10 ML SYRINGE IVP SCH ×2 (00:18→09:29)
[2019-07-08] MEDS: ACETAMINOPHEN 1,000 MG/100 ML 100 ML IV PRN (04:25)
[2019-07-08 05:17] LABS: BASOPHILS # (AUTO) 0.1 10^3/uL (0.0-0.1); BASOPHILS % (AUTO) 0.5 %; EOSINOPHILS # (AUTO) 0.3 10^3/uL (0.0-0.7); EOSINOPHILS % (AUTO) 3.1 %; LYMPHOCYTES # (AUTO) 0.9 10^3/uL (1.5-3.5); LYMPHOCYTES % (AUTO) 8.7 %; MEAN CORPUSCULAR HEMOGLOBIN 30.2 pg (27.0-31.0); MEAN CORPUSCULAR HGB CONC 31.6 g/dL (32.0-36.0); MEAN CORPUSCULAR VOLUME 95.6 fL (81.0-99.0); MEAN PLATELET VOLUME 9.5 fL (7.9-10.8); MONOCYTES % (AUTO) 10.4 %; NEUTROPHILS # (AUTO) 7.7 10^3/uL (1.5-6.6); NEUTROPHILS % (AUTO) 76.8 %; PLT - PLATELET COUNT 139 10^3/uL (130-450); RED BLOOD COUNT 3.64 10^6/uL (4.20-5.40)
[2019-07-08 05:47] LABS: CALCIUM 8.4 mg/dL (8.5-10.3); CREATININE 0.6 mg/dL (0.4-1.0); MAGNESIUM 2.2 mg/dL (1.7-2.8); PHOSPHORUS 2.6 mg/dL (2.5-4.6)
[2019-07-08] MEDS: PANTOPRAZOLE 40 MG VIAL IVP SCH (06:27)
[2019-07-08] MEDS: LACTATED RINGERS 1,000 ML IV SCH (06:27)
[2019-07-08] MEDS ORDERED: methylPREDNISolone SUCCINATE 40 MG/ML VIAL IVP SCH (09:00)
[2019-07-08] MEDS ORDERED: PROPRANOLOL ER 80 MG CAPSULE PO SCH (09:00)
--- NOTE | 2019-07-08 10:08 | PROVIDER PROGRESS NOTE ---
Subjective - General Admit Date: 07/07/19 - Review of Systems All Other Systems: positive: Reviewed and negative - Other Other Information/Narrative: Pt doing well, no further nausea or emesis and reportedly copious stool output overnight. No pain or distension. Would like more to drink and maybe eat. She stated she is 'glad I was right that this did not need surgery like you all told me I would.' Objective - Patient Data Vital Signs: Vital Signs x48h Temp Pulse Pulse Resp BP Pulse Ox 07/08/19 07:36 36.4 C L 75 20 127/47 L 93 07/08/19 04:06 37.2 C 87 20 94 07/08/19 03:14 37.2 C 87 20 128/48 L 94 Weight: Weight 07/06/19 07/07/19 07/08/19 23:59 23:59 23:59 Weight (kg) 66.224 kg 68.5 kg Intake & Output: Intake and Output Totals x24h 07/06/19 07/07/19 07/08/19 23:59 23:59 23:59 Intake Total 1000 2178.333 1180 Output Total 300 550 400 Balance 700 1628.333 780 - Lab Results Lab Results: 07/08/19 04:50 07/08/19 04:50 Other Lab Results: Lab Results x24hrs 07/08/19 07/08/19 07/07/19 Range/Units 04:50 04:50 14:45 WBC 10.0 (4.8-10.8) x10^3/uL RBC 3.64 L (4.20-5.40) 10^6/uL Hgb 11.0 L (12.0-16.0) g/dL Hct 34.8 L (37.0-47.0) % MCV 95.6 (81.0-99.0) fL MCH 30.2 (27.0-31.0) pg MCHC 31.6 L (32.0-36.0) g/dL RDW 17.0 H (12.0-15.0) % Plt Count 139 (130-450) 10^3/uL MPV 9.5 (7.9-10.8) fL Neut # (Auto) 7.7 H (1.5-6.6) 10^3/uL Lymph # (Auto) 0.9 L (1.5-3.5) 10^3/uL [place] # (Auto) 1.0 (0.0-1.0) 10^3/uL Eos # (Auto) 0.3 (0.0-0.7) 10^3/uL Baso # (Auto) 0.1 (0.0-0.1) 10^3/uL Absolute Nucleated RBC 0.00 x10^3/uL Nucleated RBC % 0.0 /100WBC Sodium 137 (135-145) mmol/L Potassium 3.5 (3.5-5.0) mmol/L Chloride 104 (101-111) mmol/L Carbon Dioxide 25 (21-32) mmol/L Anion Gap 8.0 (6-13) BUN 23 H (6-20) mg/dL Creatinine 0.6 (0.4-1.0) mg/dL Estimated GFR (MDRD) 96 (>89) Glucose 110 H (70-100) mg/dL Calcium 8.4 L (8.5-10.3) mg/dL Phosphorus 2.6 (2.5-4.6) mg/dL Magnesium 2.2 (1.7-2.8) mg/dL Urine Color YELLOW Urine Clarity HAZY (CLEAR) Urine pH 5.5 (5.0-7.5) PH Ur Specific [place] <=1.005 (1.002-1.030) Urine Protein NEGATIVE (NEGATIVE) mg/dL Urine Glucose (UA) NEGATIVE (NEGATIVE) mg/dL Urine Ketones NEGATIVE (NEGATIVE) mg/dL Urine Occult Blood NEGATIVE (NEGATIVE) Urine Nitrite NEGATIVE (NEGATIVE) Urine Bilirubin NEGATIVE (NEGATIVE) Urine Urobilinogen 0.2 (NORMAL) (NORMAL) E.U./dL Ur Leukocyte Esterase TRACE H (NEGATIVE) Urine RBC 0-5 (0-5) /HPF Urine WBC 0-3 (0-5) /HPF Ur Squamous Epith Cells FEW Squamous (<= Few) Urine Bacteria Rare (None Seen) /HPF Urine Culture Comments INDICATED - Current Medications Current Medications: Current Medications Generic Name Dose Route Start Last Admin Trade Name Freq PRN Reason Stop Dose Admin Diphenhydramine HCl 25 mg 07/07/19 09:29 07/07/19 19:29 Benadryl Inj IVP 25 mg Q6H PRN Administration Allergy Symptoms Lactated Ringer's 1,000 mls @ 100 mls/hr 07/06/19 23:45 07/08/19 06:27 Lr IV 100 mls/hr .Q10H REGI Administration Acetaminophen 100 mls @ 400 mls/hr 07/07/19 00:40 07/08/19 05:34 Ofirmev IV Infused Q6HR PRN Infusion PAIN Ketorolac Tromethamine 15 mg 07/07/19 06:56 07/07/19 14:34 Toradol Inj (15mg) IVP 07/12/19 06:55 15 mg Q6HR PRN Administration PAIN Methylprednisolone 10 mg 07/08/19 09:00 07/08/19 09:29 Solu-Medrol (40mg Vial) IVP 10 mg DAILY REGI Administration Ondansetron HCl 4 mg 07/06/19 23:50 07/07/19 15:07 Zofran Inj IVP 4 mg Q6HR PRN Administration Nausea / Vomiting Pantoprazole Sodium 40 mg 07/07/19 07:00 07/08/19 06:27 Protonix IVP 40 mg QDAC REGI Administration Prochlorperazine Edisylate 10 mg 07/07/19 09:30 07/07/19 10:53 Compazine Inj IVP 10 mg Q6HR PRN Administration Nausea / Vomiting Propranolol HCl 80 mg 07/08/19 09:00 07/08/19 09:29 Inderal La PO 80 mg BID REGI Administration Sodium Chloride 10 ml 07/06/19 23:50 07/07/19 19:29 Normal Saline Flush 0.9% IVP 10 ml PRN PRN Administration NEEDED PER PROVIDER ORDERS Sodium Chloride 10 ml 07/07/19 01:00 07/08/19 09:29 Normal Saline Flush 0.9% IVP 10 ml 0100,[id number],1700 REGI Administration - Physical Exam Comments/Other: AAO with some confused memories; NAD EOMI, dry lips unlabored RA soft, nt/nd Impression/Plan - Problem List Problem List: SBO - recurrent but intermittent - pt non-toxic, reactive leukocytosis improving, vitals nl - SBO appears to have resolved, no further n/v and having copious stool output; no distension, abd benign --> CLD, discussed slow advancement --> ADAT if tolerates - pt with concern for early dementia based on some confused memories and avoidant circuitous answers - SCDs, lovenox - ambulate with assistance, be OOB, use IS - MIVFs
--- NOTE | 2019-07-08 14:07 | DISCHARGE SUMMARY ---
Discharge Summary Admit Date: 07/06/19 Discharge Date: 07/08/19 Discharging Provider: AGNIESZKA Trejo Primary Care Provider: Navjot Burkett Code Status: Attempt Resuscitation Condition at Discharge: Good Discharge Disposition: 01 Home, Self Care - DIAGNOSES Admission Diagnoses: Small bowel obstruction Leukocytosis Rheumatoid arthritis Essential tremor Discharge Diagnoses with Status of Each Condition: Small bowel obstruction-Resolved Leukocytosis-Resolved, likely a stress response Abdominal pain-Resolved Vomiting-Greater than 30 hours since last emesis, resolved and tolerating meals NSAID long-term use-Chronic, encouraged decreased daily use Rectal carcinoma-Chronic, in remission Rheumatoid arthritis-Chronic, controlled Recurrent UTI-UA negative for this hospital stay, stable Essential tremor-Chronic, resumed home propranolol, stable - HPI History of Present Illness: HPI per Dr. Godoy: This is a pleasant 79-year-old female with a past medical history significant for colon cancer in the early 1999 status post resection, prior history of small bowel obstruction, rheumatoid arthritis, essential tremor who presents today complaining of constipation and abdominal pain. She reports the abdominal pain is located in the middle of her abdomen and is diffuse in n ature. The pain is mild. She reports her last bowel movement was on . She did not have any nausea or vomiting prior to arrival in the emergency department. She reports no chest pain or dyspnea. Denies any sick contacts and reports no fevers or chills. She states she has had obstructions in the past that required hospitalization but has not required surgery. She has had prior abdominal surgeries including resection of the distal portion of her colon for the colon cancer. She has also had a hysterectomy, appendectomy, and cholecystectomy. In the emergency department, she is on to be afebrile with temperature of 36 C. Her heart rate was in the 50s. Her blood pressure was 129/52. She was not tachypneic and saturating well on room air. It was initially felt that she had a fecal impaction and therefore she was disimpacted in the emergency department. She had a large bowel but then began to have a large episode of emesis. Labs were then checked which revealed a white count of 10.6 a left shift. Her basic metabolic panel was unremarkable. She then underwent a CT of the abdomen and pelvis which showed distal small bowel obstruction with transition point in the region of the right presacral soft tissue thickening likely secondary to adhesions. This is similar in appearance to her prior CT scans. Given these findings, the emergency department spoke with the general surgeon on-call who recommended placing an NG tube. Medicine was then consulted for admission. I did discuss goals of care with the patient and she would like to be a full code. - HOSPITAL COURSE Hospital Course: The patient was admitted to the hospital for recurrent bowel obstruction which resolved after bowel rest and symptom management. The cause of this is known to be an adhesion as seen in prior imaging. She had a resolution of her symptoms and were tolerating meals, so was found to be medically stable to return home. General surgery was following and had no further recommendations. - ALLERGIES Allergies/Adverse Reactions: Allergies Allergy/AdvReac Type Severity Reaction Status Date / Time meperidine HCl * AdvReac Unknown Hallucinati Verified 07/06/19 19:56 [From Demerol] ons morphine AdvReac Unknown Dizziness Verified 07/06/19 19:56 Penicillins AdvReac Unknown Rash Verified 07/06/19 19:56 Sulfa (Sulfonamide AdvReac Unknown Rash Verified 07/06/19 19:56 Antibiotics) tetracycline AdvReac Unknown Rash Verified 07/06/19 19:56 - MEDICATIONS Home Medications: Ambulatory Orders Medication Instructions Recorded Confirmed predniSONE [Deltasone] 5 mg PO DAILY 12/20/12 07/07/19 Omeprazole [PriLOSEC] 20 mg PO DAILY 02/25/16 07/07/19 Propranolol ER [Inderal LA] 80 mg PO BID 03/02/17 07/07/19 Calcium Carbonate/Vitamin D3 1 each PO DAILY 05/24/18 07/07/19 [Calcium 500 mg-Vit D3 600 Unit] Cranberry 500 mg PO DAILY 05/24/18 07/07/19 Lutein 20 mg PO DAILY 05/24/18 07/07/19 Multivitamin [Multiple Vitamins] 1 each PO DAILY 05/24/18 07/07/19 Vitamin B Complex 1 tab PO DAILY 05/24/18 07/07/19 Methotrexate Sodium/Pf 25 mg SUBQ MO 07/07/19 07/07/19 [Methotrexate 50 mg/2 ml Vial] Acetaminophen 1 - 2 tab PO Q8H 07/08/19 07/08/19 Naproxen Sodium [Aleve] 2 tab PO Q12H 07/08/19 07/08/19 Wheat Dextrin [Benefiber] 1 each PO DAILY #30 packet 07/08/19 - PHYSICAL EXAM AT DISCHARGE General Appearance: positive: No acute distress, Alert Eyes Bilateral: positive: PERRL, No lid inflammation ENT: positive: No signs of dehydration Neck: positive: No JVD, Trachea midline Respiratory: positive: Chest non-tender, No respiratory distress, Breath sounds nml Cardiovascular: positive: Regular rate & rhythm, No gallop, Systolic murmur Peripheral Pulses: positive: 2+ Abdomen: positive: Non-tender, Nml bowel sounds, Other (rounded, soft) Back: positive: Nml inspection Skin: positive: Color nml, No rash, Warm, Dry Extremities: positive: Non-tender, Full ROM, Nml appearance, No pedal edema Neurologic/Psychiatric: positive: Oriented x3, CN's nml (2-12), Motor nml, Sensation nml, Mood/affect nml Reflexes: Bicep (R): 3+, Bicep (L): 3+ - LABS Result Diagrams: 07/08/19 04:50 07/08/19 04:50 - DIAGNOSTIC IMAGING Diagnostic Imaging Results: Final report reviewed Diagnostic Imaging Results Comments: CT ABDOMEN AND PELVIS 07/06/2019 10:37 PM IMPRESSION: 1. Distal small bowel obstruction with transition point in the region of the right presacral soft tissue thickening likely secondary to adhesions, similar to the previous exam. 2. No pneumatosis or fluid collections. - FOLLOW UP Follow Up: See your PCP within one week, take daily benefiber - TIME SPENT Time Spent in Discharge (Minutes): 65
--- NOTE | 2019-07-08 14:07 | Discharge Plan ---
Discharge Plan Problem Reviewed?: Yes Disposition: Home, Self Care Condition: Good Prescriptions: Wheat Dextrin [Benefiber] 1 each PO DAILY #30 packet Diet: Soft Activity Restrictions: Activity as Tolerated Instruction Topics: ED Impaction Fecal Treated Health Concerns: Small bowel obstruction Vomiting Abdominal pain Constipation NSAID correction use Plan of Treatment: Continue to eat soft foods Keep active daily as tolerated Take daily benefiber Follow up with your Primary care provider within one week Care Goals: Prevent recurrence of your obstruction Avoid surgery Prevent ED visits and hospital stays Assessment: You were admitted to the hospital for recurrent bowel obstruction which resolved after bowel rest and symptom management. The cause of this is known to be an adhesion as seen in prior imaging. You had a resolution of your symptoms and were tolerating meals, so you are medically clear to return home. No Smoking: If you smoke, Please STOP! Call for help. Follow-up with: Navjot Burkett MD [Primary Care Provider] -
[2019-07-08 16:05] VITALS: BP 120/69
[2019-07-09] MEDS ORDERED: predniSONE 5 MG TABLET PO SCH (09:00)
== END 2019-07-08 17:00 | disposition home or self-care (01) | DRG 390 ==
LOC: ED 19:40 → MS3 23:50 → OBSVTOIN 07-07 11:31
PROVIDERS: ADMIT Internal Medicine; ATTEND Nurse Practitioner
DX: K56.50 Intestinal adhesions [bands], unspecified as to partial versus complete obstruction (principal); G25.0 Essential tremor; K21.9 Gastro-esophageal reflux disease without esophagitis; K52.9 Noninfective gastroenteritis and colitis, unspecified; K59.09 Other constipation; R30.0 Dysuria; R32 Unspecified urinary incontinence; H54.7 Unspecified visual loss; M06.9 Rheumatoid arthritis, unspecified; D72.829 Elevated white blood cell count, unspecified; C44.311 Basal cell carcinoma of skin of nose; Z79.1 Long term (current) use of non-steroidal anti-inflammatories (NSAID); Z79.52 Long term (current) use of systemic steroids; Z79.899 Other long term (current) drug therapy; Z85.048 Personal history of other malignant neoplasm of rectum, rectosigmoid junction, and anus; Z90.49 Acquired absence of other specified parts of digestive tract; Z90.710 Acquired absence of both cervix and uterus; Z87.01 Personal history of pneumonia (recurrent); Z87.891 Personal history of nicotine dependence; Z92.3 Personal history of irradiation; Z92.21 Personal history of antineoplastic chemotherapy; Z87.440 Personal history of urinary (tract) infections
CPT/HCPCS: 36415; 74177; 80048; 80053; 81001; 83690; 83735; 84100; 85025; 87086; 93005; 96361; 96365; 96375; 99285; A9270; G0378; J0131; J1200; J7120; Q0162; Q9967

== ENCOUNTER 2020-04-17 11:20 | Outpatient (CLI) | payer MEDICARE, OTHER ==
--- NOTE | 2020-04-17 12:24 | XRAY Report ---
PROCEDURE: Chest 2 View X-Ray INDICATIONS: DYSPNEA TECHNIQUE: 2 view(s) of the chest. COMPARISON: None. FINDINGS: Surgical changes and devices: None. Lungs and pleura: No pleural effusions or pneumothorax. Lungs are clear. Mediastinum: Mediastinal contours are normal. Heart size is normal. Bones and chest wall: No suspicious bony abnormalities. The aorta has atherosclerotic calcification s. The thoracic spine has degenerative changes at multiple levels. Soft tissues appear unremarkable. IMPRESSION: No acute cardiopulmonary abnormality Reviewed by: Bautista Birmingham on 04/17/2020 12:23 PM PST Approved by: Bautista Birmingham on 04/17/2020 12:23 PM PST Station ID: [id number]
== END 2020-04-17 11:21 | disposition home or self-care (01) ==
LOC: DI 11:20
PROVIDERS: ATTEND Internal Medicine
DX: R06.00 Dyspnea, unspecified (principal)
CPT/HCPCS: 71046

== ENCOUNTER 2020-04-20 13:15 | Outpatient (CLI) | payer MEDICARE, OTHER | END 2020-04-20 13:16 | disposition home or self-care (01) | LOC: RT 13:15 | PROVIDERS: ATTEND Internal Medicine | DX: R06.89 Other abnormalities of breathing (principal) | CPT/HCPCS: 94060 ==

== ENCOUNTER 2022-08-17 08:00 | Outpatient (CLI) | payer MEDICARE, OTHER | END 2022-08-17 23:59 | disposition home or self-care (01) | LOC: LAB.N 08:00 | PROVIDERS: ATTEND Physician Assistant | DX: Z20.822 Contact with and (suspected) exposure to COVID-19 (principal) ==

== ENCOUNTER 2022-08-25 15:11 | Outpatient (CLI) | payer MEDICARE, OTHER | END 2022-08-25 23:59 | disposition critical access hospital (66) | LOC: EMS 15:11 | DX: U07.1 COVID-19 (principal); R06.00 Dyspnea, unspecified; R63.0 Anorexia; R32 Unspecified urinary incontinence; R15.9 Full incontinence of feces | CPT/HCPCS: A0425; A0427 ==

== ENCOUNTER 2022-08-25 15:28 | Inpatient (IN) | payer MEDICARE, OTHER ==
--- NOTE | 2022-08-25 15:55 | ED Physician Documentation ---
PD HPI URI - Stated complaint Stated Complaint: DIFFICULTY BREATHING - Chief complaint Chief Complaint: Resp - History obtained from History obtained from: Patient, Family (spouse who gives complementary info for the patient history.), EMS (EMS found the patient to be hypoxic at 80% on room air with wheezing. Improved with neb and oxygen on route.) - History of Present Illness Timing - onset: How many weeks ago (2) Timing duration: Weeks (2) Timing details: Gradual onset, Still present Associated symptoms: Chills, Productive cough, Dyspnea. No: NVD, Bilateral edema Contributing factors: Sick contact (She and her were both sick for the past 2 weeks with upper respiratory symptoms and progressive cough. The patient has had increased cough with sputum the last few days. Feeling more dyspneic.), Unimmunized Worsened by: Activity Similar symptoms before: Has not had sx before Recently seen: Not recently seen Review of Systems Constitutional: reports: Chills, Myalgias, Fatigue, Other ([id number] appetite the past few days.). denies: Fever Nose: reports: Congestion Cardiac: denies: Chest pain / pressure, Palpitations Respiratory: reports: Dyspnea, Cough, Wheezing GI: denies: Abdominal Pain, Nausea, Vomiting, Diarrhea Musculoskeletal: denies: Extremity swelling PD PAST MEDICAL HISTORY - Past Medical History Cardiovascular: None, Other (no history of CAD/angina/CHF.) Respiratory: Pneumonia, Other (no history of COPD?Asthma.) Neuro: None Endocrine/Autoimmune: None GI: GERD, Chronic diarrhea, Chronic constipation, Other MAIL CALLER: Other : Incontinence HEENT: Chronic vision loss Psych: None Musculoskeletal: Rheumatoid arthritis Derm: Other (BCC on nose) - Past Surgical History Past Surgical History: Yes General: Cholecystectomy, Appendectomy (open ), Bowel surgery (CRC- distal colon resection (2002)), Colonoscopy (no longer gets surveillance scopes) Ortho: Arthroscopic surgery /MAIL CALLER: Hysterectomy HEENT: Cataracts Derm: Skin cancer surgery - Present Medications Home Medications: Ambulatory Orders Medication Instructions Recorded Confirmed predniSONE [Deltasone] 5 mg PO DAILY 12/20/12 07/07/19 Omeprazole [PriLOSEC] 20 mg PO DAILY 02/25/16 07/07/19 Propranolol ER [Inderal LA] 80 mg PO BID 03/02/17 07/07/19 Calcium Carbonate/Vitamin D3 1 each PO DAILY 05/24/18 07/07/19 [Calcium 500 mg-Vit D3 600 Unit] Cranberry 500 mg PO DAILY 05/24/18 07/07/19 Lutein 20 mg PO DAILY 05/24/18 07/07/19 Multivitamin [Multiple Vitamins] 1 each PO DAILY 05/24/18 07/07/19 Vitamin B Complex 1 tab PO DAILY 05/24/18 07/07/19 Methotrexate Sodium/Pf 25 mg SUBQ MO 07/07/19 07/07/19 [Methotrexate 50 mg/2 ml Vial] Acetaminophen 1 - 2 tab PO Q8H 07/08/19 07/08/19 Naproxen Sodium [Aleve] 2 tab PO Q12H 07/08/19 07/08/19 Wheat Dextrin [Benefiber] 1 each PO DAILY #30 packet 07/08/19 - Allergies Allergies/Adverse Reactions: Allergies Allergy/AdvReac Type Severity Reaction Status Date / Time meperidine HCl * AdvReac Unknown Hallucinati Verified 08/25/22 15:36 [From Demerol] ons morphine AdvReac Unknown Dizziness Verified 08/25/22 15:36 Penicillins AdvReac Unknown Rash Verified 08/25/22 15:36 Sulfa (Sulfonamide AdvReac Unknown Rash Verified 08/25/22 15:36 Antibiotics) tetracycline AdvReac Unknown Rash Verified 08/25/22 15:36 - Living Situation Living Situation: reports: With spouse/s.o., Other (She is typically able to do her own ADLs and lives with her . Has been weaker and unable to ambulate as well for the few days.) Living Arrangement: reports: At home - Social History Does the pt smoke?: No Smoking Status: Former smoker Does the pt drink ETOH?: No Does the pt have substance abuse?: No - Family History Family history: reports: Non contributory - Immunizations Immunizations are current?: Yes - POLST Patient has POLST: No POLST Status: Full Code PD ED PE NORMAL - Vitals Vital signs reviewed: Yes - General General: No: Well developed/nourished (somewhat thin and frail but well groomed. ) - HEENT HEENT: Pharynx benign - Cardiac Cardiac: RRR, No murmur - Respiratory Respiratory: No: Clear bilaterally (Diffuse expiratory wheezes and some coarse sounds on the lower the left. She is tachypneic but no work of breathing and does not appear tired.) - Abdomen Abdomen: Normal bowel sounds, Soft, Non tender - Derm Derm: Normal color, Warm and dry - Extremities Extremities: No edema, No calf tenderness / cord - Neuro Neuro: Alert and oriented X 3, No motor deficit, No sensory deficit, Normal speech Eye Opening: Spontaneous Motor: Obeys Commands Verbal: Oriented GCS Score: 15 Results - Vitals Vitals: Vital Signs - 24 hr 08/25/22 08/25/22 08/25/22 15:32 16:41 17:18 Temperature 37.1 C Heart Rate 108 H 89 96 Respiratory 30 H 17 24 Rate Blood Pressure 180/65 H 134/51 H O2 Saturation 80 L 98 If not protocol 6 : Oxygen Flow, liters/minute 08/25/22 18:38 Temperature Heart Rate 104 H Respiratory 34 H Rate Blood Pressure 134/50 H O2 Saturation 100 If not protocol : Oxygen Flow, liters/minute Oxygen O2 Source Room air - EKG (time done) 15:55 EKG releavant findings:: EKG personally interpreted by author of this note. Relevant findings are: Rate: Rate (enter#) (108) Rhythm: Sinus tachycardia [place]: Normal Intervals: Normal VT QRS: Normal Ischemia: T wave inversion, Non specific changes (Diffuse repolarization abnormalities with some ST depressions. No ST elevations. Similar pattern to 07/07/2019 though more pronounced currently.) Compare to prior EKG: Changed from prior EKG (Similar general repolarization abnormality but more pronounced on current.) - Labs Labs: Laboratory Tests 08/25/22 08/25/22 08/25/22 16:07 16:07 16:07 WBC 32.0 H RBC 4.30 Hgb 13.2 Hct 41.0 MCV 95.3 MCH 30.7 MCHC 32.2 RDW 14.7 Plt Count 258 MPV 9.3 Neut # (Auto) Not Reportable Lymph # (Auto) Not Reportable [place] # (Auto) Not Reportable Eos # (Auto) Not Reportable Baso # (Auto) Not Reportable Absolute Nucleated RBC Not Reportable Total Counted 100 Band Neuts % (Manual) 2 Abnorm Lymph % (Manual) 0 Nucleated RBC % Not Reportable Neutrophils # (Manual) 29.1 H Lymphocytes # (Manual) 1.0 L Monocytes # (Manual) 1.9 H Eosinophils # (Manual) 0.0 Basophils # (Manual) 0.0 Differential Comment MANUAL DIFFERENTIAL Platelet Estimate NORMAL (130-450,000) Platelet Morphology NORMAL APPEARANCE RBC Morph Micro Appear NORMAL APPEARANCE Sodium 137 Potassium 3.8 Chloride 102 Carbon Dioxide 24 Anion Gap 11.0 BUN 20 Creatinine 0.4 Estimated GFR (MDRD) 152 Glucose 137 H Lactic Acid Calcium 9.5 Magnesium Total Bilirubin 1.2 H AST 17 ALT 15 Alkaline Phosphatase 74 Troponin I High Sens 234.7 H* B-Natriuretic Peptide Total Protein 6.9 Albumin 3.3 Globulin 3.6 Albumin/Globulin Ratio 0.9 L Lipase 22 Nasal Adenovirus (PCR) Nasal B. parapertussis DNA (PCR) Nasal Coronavir 229E PCR Nasal Coronavir HKU1 PCR Nasal Coronavir NL63 PCR Nasal Coronavir OC43 PCR Nasal Enterovir/Rhinovir PCR Nasal Influenza B PCR Nasal Influenza A PCR Nasal Parainfluen 1 PCR Nasal Parainfluen 2 PCR Nasal Parainfluen 3 PCR Nasal Parainfluen 4 PCR Nasal RSV (PCR) Nasal B.pertussis DNA PCR Nasal C.pneumoniae (PCR) Oscar Human Metapneumo PCR Nasal M.pneumoniae (PCR) Nasal SARS-CoV-2 (PCR) 08/25/22 08/25/22 08/25/22 16:07 16:07 16:12 WBC RBC Hgb Hct MCV MCH MCHC RDW Plt Count MPV Neut # (Auto) Lymph # (Auto) [place] # (Auto) Eos # (Auto) Baso # (Auto) Absolute Nucleated RBC Total Counted Band Neuts % (Manual) Abnorm Lymph % (Manual) Nucleated RBC % Neutrophils # (Manual) Lymphocytes # (Manual) Monocytes # (Manual) Eosinophils # (Manual) Basophils # (Manual) Differential Comment Platelet Estimate Platelet Morphology RBC Morph Micro Appear Sodium Potassium Chloride Carbon Dioxide Anion Gap BUN Creatinine Estimated GFR (MDRD) Glucose Lactic Acid Calcium Magnesium 2.0 Total Bilirubin AST ALT Alkaline Phosphatase Troponin I High Sens B-Natriuretic Peptide 505 H Total Protein Albumin Globulin Albumin/Globulin Ratio Lipase Nasal Adenovirus (PCR) NOT DETECTED Nasal B. parapertussis DNA (PCR) NOT DETECTED Nasal Coronavir 229E PCR NOT DETECTED Nasal Coronavir HKU1 PCR NOT DETECTED Nasal Coronavir NL63 PCR NOT DETECTED Nasal Coronavir OC43 PCR DETECTED A Nasal Enterovir/Rhinovir PCR NOT DETECTED Nasal Influenza B PCR NOT DETECTED Nasal Influenza A PCR NOT DETECTED Nasal Parainfluen 1 PCR NOT DETECTED Nasal Parainfluen 2 PCR NOT DETECTED Nasal Parainfluen 3 PCR NOT DETECTED Nasal Parainfluen 4 PCR NOT DETECTED Nasal RSV (PCR) NOT DETECTED Nasal B.pertussis DNA PCR NOT DETECTED Nasal C.pneumoniae (PCR) NOT DETECTED Oscar Human Metapneumo PCR NOT DETECTED Nasal M.pneumoniae (PCR) NOT DETECTED Nasal SARS-CoV-2 (PCR) NOT DETECTED 08/25/22 08/25/22 08/25/22 16:37 16:37 17:44 WBC RBC Hgb Hct MCV MCH MCHC RDW Plt Count MPV Neut # (Auto) Lymph # (Auto) [place] # (Auto) Eos # (Auto) Baso # (Auto) Absolute Nucleated RBC Total Counted Band Neuts % (Manual) Abnorm Lymph % (Manual) Nucleated RBC % Neutrophils # (Manual) Lymphocytes # (Manual) Monocytes # (Manual) Eosinophils # (Manual) Basophils # (Manual) Differential Comment Platelet Estimate Platelet Morphology RBC Morph Micro Appear Sodium Potassium Chloride Carbon Dioxide Anion Gap BUN Creatinine Estimated GFR (MDRD) Glucose Lactic Acid 1.7 Calcium Magnesium Total Bilirubin AST ALT Alkaline Phosphatase Troponin I High Sens 240.1 H* 228.7 H* B-Natriuretic Peptide Total Protein Albumin Globulin Albumin/Globulin Ratio Lipase Nasal Adenovirus (PCR) Nasal B. parapertussis DNA (PCR) Nasal Coronavir 229E PCR Nasal Coronavir HKU1 PCR Nasal Coronavir NL63 PCR Nasal Coronavir OC43 PCR Nasal Enterovir/Rhinovir PCR Nasal Influenza B PCR Nasal Influenza A PCR Nasal Parainfluen 1 PCR Nasal Parainfluen 2 PCR Nasal Parainfluen 3 PCR Nasal Parainfluen 4 PCR Nasal RSV (PCR) Nasal B.pertussis DNA PCR Nasal C.pneumoniae (PCR) Oscar Human Metapneumo PCR Nasal M.pneumoniae (PCR) Nasal SARS-CoV-2 (PCR) - Rads (name of study) chest xray Relevant Findings:: Prelim report reviewed, EMP independent interpretation of test (Some is interstitial changes mainly on the right. Could be scarring versus developing pneumonia.), See rad report PD Medical Decision Making - ED course Complexity details: re-evaluated patient (She has less labored breathing on oxygen and is saturating at 96% to 98% on 5 L nasal cannula. No stigmata of CHF or heart failure. Wheezing with congested phlegmy cough.), considered differential (Patient having some tachypnea. Able to answer questions short. States a week or more of progressive cough and dyspnea. Typically able to perform ADLs at home. Less able the last few days. Short of breath at home and EMS called finding her to be 80% sats on room air.), d/w patient, d/w education sales consultant (Hospitalist, who agrees with treatment and hospitalization. ) Social Determinants of Health: She lives with her and states she does perform her own ADLs at home. Her does the shopping. They do have some local family support in the area. She is currently ill and tested positive for COVID last week. Persisting increased cough and dyspnea. I did ask her if she had pre-existing care limitations/POLST form. She states she did not that she is aware of. She was not sure if she would want advanced airway interventions such as intubation. We will need to readdress that in a little bit or with her . At the moment she is not in need of that/not showing respiratory failure currently. ED course: The patient's arrived and gave supplementary information about her symptoms of the last few days being increased cough and general weakness and poor intake. No history of chest pain or heart disease. Here in the ER the patient did have improvement with nebulizer treatments x2. She is still tachypneic but remains with good oxygenation and does not appear to be tired. No stigmata of CHF on exam. Her troponin was elevated and I presume demand ischemia. A repeat troponin showed a similar level without any rise. At this point the patient appears ill enough and was hypoxic and still tachypneic and I believe she needs further treatment in the hospital. I will contact the hospitalist. Departure - Departure Disposition: 66 [facility] DC/Xfer Clinical Impression: Acute pneumonia, Hypoxia, Ischemia due to increased oxygen demand URI (upper respiratory infection) Qualifiers: URI type: unspecified URI Qualified Code(s): J06.9 - Acute upper respiratory infection, unspecified Dyspnea Qualifiers: Dyspnea type: shortness of breath Qualified Code(s): R06.02 - Shortness of breath Condition: Stable
[2022-08-25 16:12] LABS: BASOPHILS % (AUTO) 0.4 %; HGB - HEMOGLOBIN 13.2 g/dL (12.0-16.0); MEAN CORPUSCULAR HEMOGLOBIN 30.7 pg (27.0-31.0); MEAN CORPUSCULAR HGB CONC 32.2 g/dL (32.0-36.0); MEAN CORPUSCULAR VOLUME 95.3 fL (81.0-99.0); MEAN PLATELET VOLUME 9.3 fL (7.9-10.8); MONOCYTES % (AUTO) 10.2 %; NEUTROPHILS % (AUTO) 84.5 %; PLT - PLATELET COUNT 258 10^3/uL (130-450); RED CELL DISTRIBUTION WIDTH 14.7 % (12.0-15.0)
[2022-08-25] MEDS ORDERED: IPRATROPIUM/ALBUTEROL 3 ML NEB INH STA (16:12)
[2022-08-25] MEDS ORDERED: SODIUM CHLORIDE 0.9% 1,000 ML IV STA (16:14)
[2022-08-25 16:16] LABS: ABNORMAL LYMPHS % (MANUAL) 0 %
[2022-08-25 16:26] LABS: ALBUMIN 3.3 g/dL (3.2-5.5); ALBUMIN/GLOBULIN RATIO 0.9 (1.0-2.2); BILIRUBIN,TOTAL 1.2 mg/dL (0.2-1.0); CALCIUM 9.5 mg/dL (8.5-10.3); CREATININE 0.4 mg/dL (0.4-1.0); POTASSIUM 3.8 mmol/L (3.5-5.0); TOTAL PROTEIN 6.9 g/dL (6.7-8.2)
[2022-08-25 16:38] LABS: BAND NEUTROPHILS % (MANUAL) 2 %; DIFFERENTIAL COMMENT MANUAL DIFFERENTIAL; LYMPHOCYTES % (MANUAL) 3 %; MONOCYTES # (MANUAL) 1.9 10^3/uL (0.0-1.0); NEUTROPHILS # (MANUAL) 29.1 10^3/uL (1.5-6.6); PLATELET ESTIMATE, MANUAL NORMAL (130-450,000) (NORMAL); PLATELET MORPHOLOGY NORMAL APPEARANCE (NORMAL); RBC MORPHOLOGY (MULTIPLE) NORMAL APPEARANCE (NORMAL)
--- NOTE | 2022-08-25 16:38 | XRAY Report ---
PROCEDURE: Chest 1 View X-Ray INDICATIONS: Chest pain TECHNIQUE: One view of the chest was acquired. COMPARISON: Chest x-ray 04/17/2020 FINDINGS: Surgical changes and devices: None. Lungs and pleura: Chronic interstitial pulmonary changes, worse compared to prior exam. Mediastinum: Mediastinal contours appear normal. Heart size is normal. Bones and chest wall: No suspicious bony lesions. Overlying soft tissues appear unremarkable. IMPRESSION: Chronic interstitial changes appearing worse compared to prior exam. Given prior baseline was 2019, t his could represent an overall interval worsening versus superimposed acute airspace disease. Recomme nd interval follow-up after appropriate therapy for further comparison. Reviewed by: Sheryl Le MD on 08/25/2022 4:37 PM PDT Approved by: Sheryl Le MD on 08/25/2022 4:37 PM PDT Station ID: [id number]
--- OUTSIDE RECORDS SUMMARY | 2022-08-25 16:43 | EXTERNAL MEDICAL SUMMARY RPT | Continuity of Care Document ---
:1940 Author Organization [facility] Address [address] [place] [address] Phone Care Team Providers Name Role Phone Jeri Adam Unavailable Unavailable Allergies and Intolerances date description facility type (no date) Sulfa (Sulfonamide Antibiotics) [facility] (unknown) (no date) Tetracyclines [facility] (unknown) (no date) penicillin G [facility] (unknown) Encounters No information. Functional Status No information. Immunizations No information. Medications date description facility 2022-08-17 00:00 Benzonatate [facility] Problems date description facility 2022-08-17 00:00 Coronavirus infection [facility] 2022-08-17 00:00 Cough [facility] 2022-08-22 09:21 Cough, unspecified [facility] Procedures date description facility 2022-08-17 00:00 [facility] Results/Labs test date author facility value unit interpret ation Result panel 1 (unknown) (no date) [facility]) Result panel 2 (unknown) (no date) (unknown[facility]) Result panel 3 (unknown) (no date) (unknown[facility]) Result panel 4 (unknown) (no date) (unknown[facility]) Result panel 5 (unknown) (no date) (unknown[facility]) Result panel 6 (unknown) (no date) (unknown[facility]) Result panel 7 (unknown) (no date) (unknown[facility]) Result panel 8 (unknown) (no date) (unknown[facility]) Result panel 9 (unknown) (no date) (unknown[facility]) Result panel 10 (unknown) (no date) (unknown[facility]) Result panel 11 (unknown) (no date) (unknown[facility]) Result panel 12 (unknown) (no date) (unknown[facility]) Result panel 13 (unknown) (no date) (unknown[facility]) Result panel 14 (unknown) (no date) (unknown[facility]) Result panel 15 (unknown) (no date) (unknown[facility]) Result panel 16 (unknown) (no date) (unknown[facility]) Result panel 17 (unknown) (no date) (unknown[facility]) Result panel 18 (unknown) (no date) (unknown[facility]) Result panel 19 (unknown) (no date) (unknown[facility]) Result panel 20 (unknown) (no date) (unknown[facility]) Result panel 21 (unknown) (no date) (unknown[facility]) Result panel 22 (unknown) (no date) (unknown[facility]) Result panel 23 (unknown) (no date) (unknown[facility]) Result panel 24 (unknown) (no date) (unknown[facility]) Result panel 25 (unknown) (no date) (unknown[facility]) Result panel 26 (unknown) (no date) (unknown[facility]) Result panel 27 (unknown) (no date) (unknown[facility]) Result panel 28 (unknown) (no date) (unknown[facility]) Result panel 29 (unknown) (no date) (unknown[facility]) Result panel 30 (unknown) (no date) (unknown[facility]) Result panel 31 (unknown) (no date) (unknown[facility]) Result panel 32 (unknown) (no date) (unknown[facility]) Result panel 33 (unknown) (no date) (unknown[facility]) Result panel 34 (unknown) (no date) (unknown[facility]) Result panel 35 (unknown) (no date) (unknown[facility]) Result panel 36 (unknown) (no date) (unknown[facility]) Result panel 37 (unknown) (no date) (unknown[facility]) Result panel 38 (unknown) (no date) (unknown[facility]) Result panel 39 (unknown) (no date) (unknown[facility]) Result panel 40 (unknown) (no date) (unknown[facility]) Result panel 41 (unknown) (no date) (unknown[facility]) Result panel 42 (unknown) (no date) (unknown[facility]) Result panel 43 (unknown) (no date) (unknown[facility]) Result panel 44 (unknown) (no date) (unknown[facility]) Result panel 45 (unknown) (no date) (unknown[facility]) Result panel 46 (unknown) (no date) (unknown[facility]) Result panel 47 (unknown) (no date) (unknown[facility]) Result panel 48 (unknown) (no date) (unknown[facility]) Result panel 49 (unknown) (no date) (unknown[facility]) Result panel 50 (unknown) (no date) (unknown[facility]) Result panel 51 (unknown) (no date) (unknown[facility]) Result panel 52 (unknown) (no date) (unknown[facility]) Result panel 53 (unknown) (no date) (unknown[facility]) Result panel 54 (unknown) (no date) (unknown[facility]) Result panel 55 (unknown) (no date) (unknown[facility]) Result panel 56 (unknown) (no date) (unknown[facility]) Result panel 57 (unknown) (no date) (unknown[facility]) Result panel 58 (unknown) (no date) (unknown[facility]) Result panel 59 (unknown) (no date) (unknown[facility]) Result panel 60 (unknown) (no date) (unknown[facility]) Result panel 61 (unknown) (no date) (unknown[facility]) Result panel 62 (unknown) (no date) (unknown[facility]) Result panel 63 (unknown) (no date) (unknown[facility]) Result panel 64 (unknown) (no date) (unknown[facility]) Result panel 65 (unknown) (no date) (unknown[facility]) Result panel 66 (unknown) (no date) (unknown) [facility]) Result panel 67 (unknown) (no date) (unknown[facility]) Result panel 68 (unknown) (no date) (unknown[facility]) Result panel 69 (unknown) (no date) (unknown[facility]) Result panel 70 (unknown) (no date) (unknown) [facility]) Result panel 71 (unknown) (no date) (unknown) [facility]) Result panel 72 (unknown) (no date) (unknown[facility]) Result panel 73 (unknown) (no date) (unknown) [facility]) Result panel 74 (unknown) (no date) (unknown[facility]) Result panel 75 (unknown) (no date) (unknown[facility]) Result panel 76 (unknown) (no date) (unknown[facility]) Result panel 77 (unknown) (no date) (unknown[facility]) Result panel 78 (unknown) (no date) (unknown) [facility]) Result panel 79 (unknown) (no date) (unknown) [facility]) Result panel 80 (unknown) (no date) (unknown) [facility]) Result panel 81 (unknown) (no date) (unknown[facility]) Result panel 82 (unknown) (no date) (unknown[facility]) Result panel 83 (unknown) (no date) (unknown) [facility]) Result panel 84 (unknown) (no date) (unknown[facility]) Result panel 85 (unknown) (no date) (unknown[facility]) Result panel 86 (unknown) (no date) (unknown[facility]) Result panel 87 (unknown) (no date) (unknown[facility]) Result panel 88 (unknown) (no date) (unknown[facility]) Result panel 89 (unknown) (no date) (unknown[facility]) Result panel 90 (unknown) (no date) (unknown[facility]) Result panel 91 (unknown) (no date) (unknown[facility]) Result panel 92 (unknown) (no date) (unknown[facility]) Result panel 93 (unknown) (no date) (unknown[facility]) Result panel 94 (unknown) (no date) (unknown[facility]) Result panel 95 (unknown) (no date) (unknown[facility]) Result panel 96 (unknown) (no date) (unknown[facility]) Result panel 97 (unknown) (no date) (unknown[facility]) Result panel 98 (unknown) (no date) (unknown[facility]) Result panel 99 (unknown) (no date) (unknown[facility]) Result panel 100 (unknown) (no date) (unknown[facility]) Result panel 101 (unknown) (no date) (unknown[facility]) Result panel 102 (unknown) (no date) (unknown[facility]) Result panel 103 (unknown) (no date) (unknown[facility]) Result panel 104 (unknown) (no date) (unknown[facility]) Result panel 105 (unknown) (no date) (unknown[facility]) Result panel 106 (unknown) (no date) (unknown[facility]) Result panel 107 (unknown) (no date) (unknown) [facility]) Result panel 108 (unknown) (no date) (unknown[facility]) Result panel 109 (unknown) (no date) (unknown[facility]) Result panel 110 (unknown) (no date) (unknown) [facility]) Result panel 111 (unknown) (no date) (unknown) [facility]) Result panel 112 (unknown) (no date) (unknown) [facility]) Result panel 113 (unknown) (no date) (unknown) [facility]) Result panel 114 (unknown) (no date) (unknown) [facility]) Result panel 115 (unknown) (no date) (unknown) [facility]) Result panel 116 (unknown) (no date) (unknown) [facility]) Result panel 117 (unknown) (no date) (unknown) [facility]) Result panel 118 (unknown) (no (unknown) (unknown) (no value) (units (unk nown) date) unknown) (unknown) (no (unknown) (unknown) [id number] (units (unkn own) date) unknown) (unknown) (no (unknown) (unknown) 08/17/22 (units (unkno wn) date) unknown) (unknown) (no (unknown) (unknown) [address] [place] [address] (units (unknown) date) unknown) (unknown) (no (unknown) (unknown) Accession Number: (units (unknown) date) [id number] unknown) (unknown) (no (unknown) (unknown) Age/Sex: 82 / F (units (unknown) date) Date of Service: unknown) (unknown) (no (unknown) (unknown) DWIGHT Taylor (units ( unknown) date) [id number] unknown) (unknown) (no (unknown) (unknown) Approved by: Adam (units (unknown) date) Ryley Ruby on unknown) 08/17/2022 at 13:17 (unknown) (no (unknown) (unknown) Bones and chest (units (unknown) date) wall: No unknown) suspicious bony abnormalities. Soft tissues appear (unknown) (no (unknown) (unknown) COMPARISON: None. (units (unknown) date) unknown) (unknown) (no (unknown) (unknown) : 1940 (units (unknown) date) Acct:[id number] unknown) (unknown) (no (unknown) (unknown) Dictated by: Adam (units (unknown) date) Ryley Ruby on unknown) 08/17/2022 at 13:17 (unknown) (no (unknown) (unknown) FINDINGS: (units (unkn own) date) unknown) (unknown) (no (unknown) (unknown) IMPRESSION: COPD. (units (unknown) date) No acute unknown) cardiopulmonary pathology. (unknown) (no (unknown) (unknown) INDICATIONS: SOB (units (unknown) date) cough unknown) (unknown) (no (unknown) (unknown) [facility] (units (unknown) date) unknown) (unknown) (no (unknown) (unknown) Loc: ED (units (unkno wn) date) unknown) (unknown) (no (unknown) (unknown) Lungs and pleura: (units (unknown) date) Lungs are clear. unknown) Hyperinflation and chronic emphysematous (unknown) (no (unknown) (unknown) Mediastinum: (units (u nknown) date) Mediastinal unknown) contours are normal. Heart size is normal. (unknown) (no (unknown) (unknown) Ordering (units (unkno wn) date) Provider: unknown) Jeri Adam P.A-C (unknown) (no (unknown) (unknown) PROCEDURE: XR (units ( unknown) date) CHEST 2V unknown) (unknown) (no (unknown) (unknown) Patient: (units (unkno wn) date) Verónica Joseph unknown) MR#: [id number] (unknown) (no (unknown) (unknown) Procedure: XR (units ( unknown) date) chest 2V unknown) (unknown) (no (unknown) (unknown) Signed (units (unkno wn) date) unknown) (unknown) (no (unknown) (unknown) Surgical changes (units (unknown) date) and devices: None. unknown) (unknown) (no (unknown) (unknown) TECHNIQUE: 2 (units (u nknown) date) views of the chest unknown) were acquired. (unknown) (no (unknown) (unknown) XRay Report (units (un known) date) unknown) (unknown) (no (unknown) (unknown) changes are (units (un known) date) unknown) (unknown) (no (unknown) (unknown) seen. No pleural (units (unknown) date) effusions or unknown) pneumothorax. (unknown) (no (unknown) (unknown) unremarkable. (units ( unknown) date) unknown) Result panel 119 (unknown) (no (unknown) (unknown) (no value) (units (unk nown) date) unknown) (unknown) (no (unknown) (unknown) [id number] (units (unkno wn) date) unknown) (unknown) (no (unknown) (unknown) 08/17/22 13:06 (units (unknown) date) unknown) (unknown) (no (unknown) (unknown) 08/17/22 13:16 (units (unknown) date) unknown) (unknown) (no (unknown) (unknown) 08/17/22 (units (unkno wn) date) unknown) (unknown) (no (unknown) (unknown) 13:01 (units (unkno wn) date) unknown) (unknown) (no (unknown) (unknown) 82-year-old (units (un known) date) female with a unknown) history of small-bowel obstruction with resection (unknown) (no (unknown) (unknown) ANTIBIOTICS)] (units ( unknown) date) unknown) (unknown) (no (unknown) (unknown) Age/Sex: 82 / F (units (unknown) date) unknown) (unknown) (no (unknown) (unknown) Allergies (units (unkn own) date) unknown) (unknown) (no (unknown) (unknown) Allergy/AdvReac (units (unknown) date) Type Severity unknown) Reaction Status Date / Time (unknown) (no (unknown) (unknown) Antibiotics) (units (u nknown) date) unknown) (unknown) (no (unknown) (unknown) Blood Pressure (units (unknown) date) 163/73 H 08/17/22 unknown) 13:01 (unknown) (no (unknown) (unknown) Blood Pressure (units (unknown) date) 163/73 H unknown) (unknown) (no (unknown) (unknown) Chief Complaint: (units (unknown) date) Shortness of unknown) Breath/Dyspnea (unknown) (no (unknown) (unknown) Complete Blood (units (unknown) date) Count AUTO DIFF unknown) Stat (unknown) (no (unknown) (unknown) Comprehensive (units ( unknown) date) Metabolic Panel unknown) Stat (unknown) (no (unknown) (unknown) Course (units (unkno wn) date) unknown) (unknown) (no (unknown) (unknown) : 1940 (units (unknown) date) Acct:[id number] unknown) (unknown) (no (unknown) (unknown) Date of Service: (units (unknown) date) 08/17/22 unknown) (unknown) (no (unknown) (unknown) ED Orders (units (unkn own) date) unknown) (unknown) (no (unknown) (unknown) EKG-12 Lead Stat (units (unknown) date) unknown) (unknown) (no (unknown) (unknown) ER Physician: (units ( unknown) date) Jeri Adam unknown) P.ARandiC (unknown) (no (unknown) (unknown) Emergency Report (units (unknown) date) unknown) (unknown) (no (unknown) (unknown) Exam (units (unkno wn) date) unknown) (unknown) (no (unknown) (unknown) General (units (unkno wn) date) unknown) (unknown) (no (unknown) (unknown) HPI - (units (unkno wn) date) SOB/Dyspnea unknown) (unknown) (no (unknown) (unknown) HPI Narrative: (units (unknown) date) unknown) (unknown) (no (unknown) (unknown) History of (units (unk nown) date) Present Illness unknown) (unknown) (no (unknown) (unknown) Initial Vital (units ( unknown) date) Signs unknown) (unknown) (no (unknown) (unknown) Initial Vital (units ( unknown) date) Signs: unknown) (unknown) (no (unknown) (unknown) [facility] (units (unknown) date) [address] unknown) [place] [address] (unknown) (no (unknown) (unknown) Lactate (Lactic (units (unknown) date) Acid) Stat unknown) (unknown) (no (unknown) (unknown) Measure peak (units (u nknown) date) expiratory flow unknown) ONCE (unknown) (no (unknown) (unknown) Mode of arrival: (units (unknown) date) Ambulatory unknown) (unknown) (no (unknown) (unknown) NT-proBNP (units (unkn own) date) (BNP-Adult 18+) unknown) Stat (unknown) (no (unknown) (unknown) Ordered: (units (unkno wn) date) unknown) (unknown) (no (unknown) (unknown) Orders (units (unkno wn) date) unknown) (unknown) (no (unknown) (unknown) Oxygen Delivery (units (unknown) date) Method Room Air unknown) 08/17/22 13:01 (unknown) (no (unknown) (unknown) Oxygen Delivery (units (unknown) date) Method Room Air unknown) (unknown) (no (unknown) (unknown) Patient History (units (unknown) date) unknown) (unknown) (no (unknown) (unknown) Patient: (units (unkno wn) date) Verónica Joseph unknown) MR#: [id number] (unknown) (no (unknown) (unknown) Prothrombin Time (units (unknown) date) INR Stat unknown) (unknown) (no (unknown) (unknown) Pulse Oximetry (units (unknown) date) 95 08/17/22 13:01 unknown) (unknown) (no (unknown) (unknown) Pulse Oximetry (units (unknown) date) 95 unknown) (unknown) (no (unknown) (unknown) Pulse Rate 64 (units ( unknown) date) 08/17/22 13:01 unknown) (unknown) (no (unknown) (unknown) Pulse Rate 64 (units ( unknown) date) unknown) (unknown) (no (unknown) (unknown) RT Consult Eval (units (unknown) date) and Treat NOW unknown) (unknown) (no (unknown) (unknown) Related Data (units (u nknown) date) unknown) (unknown) (no (unknown) (unknown) Respiratory Rate (units (unknown) date) 18 08/17/22 13:01 unknown) (unknown) (no (unknown) (unknown) Respiratory Rate (units (unknown) date) 18 unknown) (unknown) (no (unknown) (unknown) Signed By: (units (unk nown) date) unknown) (unknown) (no (unknown) (unknown) Smoking Status: (units (unknown) date) Never smoker unknown) (unknown) (no (unknown) (unknown) Social History (units (unknown) date) unknown) (unknown) (no (unknown) (unknown) Source: patient (units (unknown) date) unknown) (unknown) (no (unknown) (unknown) Stated (units (unkno wn) date) Complaint: sent unknown) by jacky berg SOB (unknown) (no (unknown) (unknown) Substance Use (units ( unknown) date) Type: does not unknown) use (unknown) (no (unknown) (unknown) Sulfa (units (unkno wn) date) (Sulfonamide unknown) Allergy Unknown Verified 08/17/22 13:06 (unknown) (no (unknown) (unknown) Temperature 97.9 (units (unknown) date) F 08/17/22 13:01 unknown) (unknown) (no (unknown) (unknown) Temperature 97.9 (units (unknown) date) F unknown) (unknown) (no (unknown) (unknown) Tetracyclines (units ( unknown) date) [TETRACYCLINES] unknown) Allergy Unknown Verified 08/17/22 13:06 (unknown) (no (unknown) (unknown) Time Seen by (units (u nknown) date) Provider: unknown) 08/17/22 13:19 (unknown) (no (unknown) (unknown) Troponin I Stat (units (unknown) date) unknown) (unknown) (no (unknown) (unknown) Vital Signs - 8 (units (unknown) date) hr unknown) (unknown) (no (unknown) (unknown) Vital Signs (units (un known) date) unknown) (unknown) (no (unknown) (unknown) Vital signs: (units (u nknown) date) unknown) (unknown) (no (unknown) (unknown) XR chest 2V Stat (units (unknown) date) unknown) (unknown) (no (unknown) (unknown) [SULFA (units (unkno wn) date) (SULFONAMIDE unknown) (unknown) (no (unknown) (unknown) abdominal pain, (units (unknown) date) chest pain or any unknown) other symptoms. Patient does state that she (unknown) (no (unknown) (unknown) alcohol intake (units (unknown) date) frequency: 0-2 unknown) drinks per day (unknown) (no (unknown) (unknown) and short of (units (u nknown) date) breath with unknown) exertion over the past 2 or 3 days. Patient states it (unknown) (no (unknown) (unknown) bothersome as it (units (unknown) date) is going on 24 unknown) hours a day she is been taking Mucinex and (unknown) (no (unknown) (unknown) concerning due (units (unknown) date) to some unknown) depression changes and sent her here for further (unknown) (no (unknown) (unknown) evaluation. (units (un known) date) unknown) (unknown) (no (unknown) (unknown) has a friend (units (u nknown) date) that recently unknown) tested positive for COVID but otherwise has not had (unknown) (no (unknown) (unknown) has maybe had (units (u nknown) date) some mild unknown) swelling in her feet but has not noticed any weight gain (unknown) (no (unknown) (unknown) is unusual for (units ( unknown) date) her to feel short unknown) of breath with exertion, she does feel that she (unknown) (no (unknown) (unknown) loose stools (units (u nknown) date) which have been unknown) unchanged for her. 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 She endorses chronic intermittent (unknown) (no (unknown) (unknown) or swelling of (units (unknown) date) her ankles or unknown) anywhere else. She states the cough has been (unknown) (no (unknown) (unknown) penicillin G (units (u nknown) date) [PENICILLIN G] unknown) Allergy Unknown Verified 08/17/22 13:06 (unknown) (no (unknown) (unknown) presents with (units ( unknown) date) concern for unknown) fatigue, a cough and feeling somewhat short of breath (unknown) (no (unknown) (unknown) productive with (units (unknown) date) mucus coming up. unknown) She denies fevers, chills, loss of appetite, (unknown) (no (unknown) (unknown) sick contacts. (units (unknown) date) Pt states she unknown) went to [facility] and was seen there and had a Result panel 120 (unknown) (no date) (unknown) (unknown) 0 /ul (unkn own) (unknown) (no date) (unknown) (unknown) 0.5 % (unkn own) (unknown) (no date) (unknown) (unknown) 1.1 % (unkn own) (unknown) (no date) (unknown) (unknown) 100 /ul (unkn own) (unknown) (no date) (unknown) (unknown) 12.1 g/dl (unkn own) (unknown) (no date) (unknown) (unknown) 15.9 % (unkn own) (unknown) (no date) (unknown) (unknown) 179 x10 3/ul (unkn own) (unknown) (no date) (unknown) (unknown) 3.89 x10 6/ul (unkn own) (unknown) (no date) (unknown) (unknown) 31.1 pg (unkn own) (unknown) (no date) (unknown) (unknown) 32.8 % (unkn own) (unknown) (no date) (unknown) (unknown) 36.8 % (unkn own) (unknown) (no date) (unknown) (unknown) 5.9 % (unkn own) (unknown) (no date) (unknown) (unknown) 500 /ul (unkn own) (unknown) (no date) (unknown) (unknown) 6900 /ul (unkn own) (unknown) (no date) (unknown) (unknown) 700 /ul (unkn own) (unknown) (no date) (unknown) (unknown) 8.3 x10 3/ul (unkn own) (unknown) (no date) (unknown) (unknown) 8.6 % (unkn own) (unknown) (no date) (unknown) (unknown) 83.9 % (unkn own) (unknown) (no date) (unknown) (unknown) 94.7 fl (unkn own) Result panel 121 (unknown) (no (unknown) (unknown) (no value) (units (unk nown) date) unknown) (unknown) (no (unknown) (unknown) [id number] (units (unkno wn) date) unknown) (unknown) (no (unknown) (unknown) 08/17/22 13:06 (units (unknown) date) unknown) (unknown) (no (unknown) (unknown) 08/17/22 13:16 (units (unknown) date) unknown) (unknown) (no (unknown) (unknown) 08/17/22 (units (unkno wn) date) unknown) (unknown) (no (unknown) (unknown) 13:01 (units (unkno wn) date) unknown) (unknown) (no (unknown) (unknown) 82-year-old (units (un known) date) female with a unknown) history of small-bowel obstruction with resection (unknown) (no (unknown) (unknown) ANTIBIOTICS)] (units ( unknown) date) unknown) (unknown) (no (unknown) (unknown) Age/Sex: 82 / F (units (unknown) date) unknown) (unknown) (no (unknown) (unknown) Allergies (units (unkn own) date) unknown) (unknown) (no (unknown) (unknown) Allergy/AdvReac (units (unknown) date) Type Severity unknown) Reaction Status Date / Time (unknown) (no (unknown) (unknown) Antibiotics) (units (u nknown) date) unknown) (unknown) (no (unknown) (unknown) BACK: Nontender (units (unknown) date) without deformity unknown) or crepitance. No flank tenderness. (unknown) (no (unknown) (unknown) Blood Pressure (units (unknown) date) 163/73 H 08/17/22 unknown) 13:01 (unknown) (no (unknown) (unknown) Blood Pressure (units (unknown) date) 163/73 H unknown) (unknown) (no (unknown) (unknown) CARDIOVASCULAR: (units (unknown) date) Regular rate and unknown) rhythm without murmurs, gallops, or rubs. (unknown) (no (unknown) (unknown) Chief Complaint: (units (unknown) date) Shortness of unknown) Breath/Dyspnea (unknown) (no (unknown) (unknown) Complete Blood (units (unknown) date) Count AUTO DIFF unknown) Stat (unknown) (no (unknown) (unknown) Comprehensive (units ( unknown) date) Metabolic Panel unknown) Stat (unknown) (no (unknown) (unknown) Course (units (unkno wn) date) unknown) (unknown) (no (unknown) (unknown) : 1940 (units (unknown) date) Acct:[id number] unknown) (unknown) (no (unknown) (unknown) Date of Service: (units (unknown) date) 08/17/22 unknown) (unknown) (no (unknown) (unknown) ED Orders (units (unkn own) date) unknown) (unknown) (no (unknown) (unknown) EKG-12 Lead Stat (units (unknown) date) unknown) (unknown) (no (unknown) (unknown) ENT: Nose (units (unkn own) date) without bleeding, unknown) purulent drainage. 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 No edema or (unknown) (no (unknown) (unknown) EYES: Pupils (units (u nknown) date) equal round and unknown) reactive. Extraocular motions intact. No scleral (unknown) (no (unknown) (unknown) Emergency Report (units (unknown) date) unknown) (unknown) (no (unknown) (unknown) Exam Narrative: (units (unknown) date) unknown) (unknown) (no (unknown) (unknown) Exam (units (unkno wn) date) unknown) (unknown) (no (unknown) (unknown) GASTROINTESTINAL (units (unknown) date) : Abdomen soft, unknown) non-tender, nondistended. (unknown) (no (unknown) (unknown) GENERAL: 82 year (units (unknown) date) old patient unknown) appears stated age. Well-developed patient, in mild (unknown) (no (unknown) (unknown) General (units (unkno wn) date) unknown) (unknown) (no (unknown) (unknown) HEAD: (units (unkno wn) date) Atraumatic. unknown) Normocephalic. (unknown) (no (unknown) (unknown) HPI - (units (unkno wn) date) SOB/Dyspnea unknown) (unknown) (no (unknown) (unknown) HPI Narrative: (units (unknown) date) unknown) (unknown) (no (unknown) (unknown) History of (units (unk nown) date) Present Illness unknown) (unknown) (no (unknown) (unknown) Initial Vital (units ( unknown) date) Signs unknown) (unknown) (no (unknown) (unknown) Initial Vital (units ( unknown) date) Signs: unknown) (unknown) (no (unknown) (unknown) [facility] (units (unknown) date) [address] unknown) [place] [address] (unknown) (no (unknown) (unknown) Lactate (Lactic (units (unknown) date) Acid) Stat unknown) (unknown) (no (unknown) (unknown) Measure peak (units (u nknown) date) expiratory flow unknown) ONCE (unknown) (no (unknown) (unknown) Mode of arrival: (units (unknown) date) Ambulatory unknown) (unknown) (no (unknown) (unknown) NECK: [place] (units ( unknown) date) midline. Non unknown) tender (unknown) (no (unknown) (unknown) NEURO: AOx3. (units (u nknown) date) unknown) (unknown) (no (unknown) (unknown) NT-proBNP (units (unkn own) date) (BNP-Adult 18+) unknown) Stat (unknown) (no (unknown) (unknown) Narrative (units (unkn own) date) unknown) (unknown) (no (unknown) (unknown) Narrative: (units (unk nown) date) unknown) (unknown) (no (unknown) (unknown) Ordered: (units (unkno wn) date) unknown) (unknown) (no (unknown) (unknown) Orders (units (unkno wn) date) unknown) (unknown) (no (unknown) (unknown) Oxygen Delivery (units (unknown) date) Method Room Air unknown) 08/17/22 13:01 (unknown) (no (unknown) (unknown) Oxygen Delivery (units (unknown) date) Method Room Air unknown) (unknown) (no (unknown) (unknown) Patient History (units (unknown) date) unknown) (unknown) (no (unknown) (unknown) Patient: (units (unkno wn) date) OpalVerónica A unknown) MR#: [id number] (unknown) (no (unknown) (unknown) Prothrombin Time (units (unknown) date) INR Stat unknown) (unknown) (no (unknown) (unknown) Pulse Oximetry (units (unknown) date) 95 08/17/22 13:01 unknown) (unknown) (no (unknown) (unknown) Pulse Oximetry (units (unknown) date) 95 unknown) (unknown) (no (unknown) (unknown) Pulse Rate 64 (units ( unknown) date) 08/17/22 13:01 unknown) (unknown) (no (unknown) (unknown) Pulse Rate 64 (units ( unknown) date) unknown) (unknown) (no (unknown) (unknown) RESPIRATORY: (units (un known) date) Clear to unknown) auscultation. Breath sounds equal bilaterally. No wheezes, (unknown) (no (unknown) (unknown) RT Consult Eval (units (unknown) date) and Treat NOW unknown) (unknown) (no (unknown) (unknown) Related Data (units (u nknown) date) unknown) (unknown) (no (unknown) (unknown) Respiratory Rate (units (unknown) date) 18 08/17/22 13:01 unknown) (unknown) (no (unknown) (unknown) Respiratory Rate (units (unknown) date) 18 unknown) (unknown) (no (unknown) (unknown) Review of (units (unkn own) date) Systems unknown) (unknown) (no (unknown) (unknown) SKIN: No rash or (units (unknown) date) erythema of unknown) visible areas (unknown) (no (unknown) (unknown) Signed By: (units (unk nown) date) unknown) (unknown) (no (unknown) (unknown) Smoking Status: (units (unknown) date) Never smoker unknown) (unknown) (no (unknown) (unknown) Social History (units (unknown) date) (Reviewed unknown) 08/17/22 @ 13:34 by Jeri Adam PA-C) (unknown) (no (unknown) (unknown) Source: patient (units (unknown) date) unknown) (unknown) (no (unknown) (unknown) Stated (units (unkno wn) date) Complaint: sent unknown) by jacky med, SOB (unknown) (no (unknown) (unknown) Substance Use (units ( unknown) date) Type: does not unknown) use (unknown) (no (unknown) (unknown) Sulfa (units (unkno wn) date) (Sulfonamide unknown) Allergy Unknown Verified 08/17/22 13:06 (unknown) (no (unknown) (unknown) Temperature 97.9 (units (unknown) date) F 08/17/22 13:01 unknown) (unknown) (no (unknown) (unknown) Temperature 97.9 (units (unknown) date) F unknown) (unknown) (no (unknown) (unknown) Tetracyclines (units ( unknown) date) [TETRACYCLINES] unknown) Allergy Unknown Verified 08/17/22 13:06 (unknown) (no (unknown) (unknown) Time Seen by (units (u nknown) date) Provider: unknown) 08/17/22 13:19 (unknown) (no (unknown) (unknown) Troponin I Stat (units (unknown) date) unknown) (unknown) (no (unknown) (unknown) Unremarkable (units (u nknown) date) except as noted unknown) in the HPI (unknown) (no (unknown) (unknown) Vital Signs - 8 (units (unknown) date) hr unknown) (unknown) (no (unknown) (unknown) Vital Signs (units (un known) date) unknown) (unknown) (no (unknown) (unknown) Vital signs: (units (u nknown) date) unknown) (unknown) (no (unknown) (unknown) XR chest 2V Stat (units (unknown) date) unknown) (unknown) (no (unknown) (unknown) [SULFA (units (unkno wn) date) (SULFONAMIDE unknown) (unknown) (no (unknown) (unknown) abdominal pain, (units (unknown) date) chest pain or any unknown) other symptoms. Patient does state that she (unknown) (no (unknown) (unknown) alcohol intake (units (unknown) date) frequency: 0-2 unknown) drinks per day (unknown) (no (unknown) (unknown) and short of (units (u nknown) date) breath with unknown) exertion over the past 2 or 3 days. Patient states it (unknown) (no (unknown) (unknown) bothersome as it (units (unknown) date) is going on 24 unknown) hours a day she is been taking Mucinex and (unknown) (no (unknown) (unknown) distress, (units (unkn own) date) well-appearing. unknown) (unknown) (no (unknown) (unknown) due to some (units (un known) date) depression unknown) changes and sent her here for further evaluation. (unknown) (no (unknown) (unknown) has a friend (units (u nknown) date) that recently unknown) tested positive for COVID but otherwise has not had (unknown) (no (unknown) (unknown) has maybe had (units (u nknown) date) some mild unknown) swelling in her feet but has not noticed any weight gain (unknown) (no (unknown) (unknown) icterus. No (units (un known) date) injection or unknown) drainage. (unknown) (no (unknown) (unknown) is unusual for (units ( unknown) date) her to feel short unknown) of breath with exertion, she does feel that she (unknown) (no (unknown) (unknown) joint (units (unkno wn) date) tenderness. unknown) (unknown) (no (unknown) (unknown) loose stools (units (u nknown) date) which have been unknown) unchanged for her. 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 She endorses chronic intermittent (unknown) (no (unknown) (unknown) or swelling of (units (unknown) date) her ankles or unknown) anywhere else. She states the cough has been (unknown) (no (unknown) (unknown) penicillin G (units (u nknown) date) [PENICILLIN G] unknown) Allergy Unknown Verified 08/17/22 13:06 (unknown) (no (unknown) (unknown) presents with (units ( unknown) date) concern for unknown) fatigue, a cough and feeling somewhat short of breath (unknown) (no (unknown) (unknown) productive with (units (unknown) date) mucus coming up. unknown) She denies fevers, chills, loss of appetite, (unknown) (no (unknown) (unknown) rales, or (units (unkn own) date) rhonchi. unknown) (unknown) (no (unknown) (unknown) sick contacts. (units (unknown) date) Pt states she unknown) went to [facility] and was seen there and had a (unknown) (no (unknown) (unknown) tonsillar (units (unkn own) date) hypertrophy or unknown) exudate. Airway patent. Result panel 122 (unknown) (no date) (unknown) (unknown) 1.1 (units unknown) (unknown) (unknown) (no date) (unknown) (unknown) 13.1 seconds (unkn own) (unknown) (no date) (unknown) (unknown) 13.1 seconds (unkn own) Result panel 123 (unknown) (no date) (unknown) (unknown) > 60 ml/min (unkn own) (unknown) (no date) (unknown) (unknown) > 60 ml/min (unkn own) (unknown) (no date) (unknown) (unknown) 0.37 mg/dl (unkn own) (unknown) (no date) (unknown) (unknown) 0.5 mg/dl (unkn own) (unknown) (no date) (unknown) (unknown) 1.3 (units unknown) (unknown) (unknown) (no date) (unknown) (unknown) 101 mmol/l (unkn own) (unknown) (no date) (unknown) (unknown) 115 mg/dl (unkn own) (unknown) (no date) (unknown) (unknown) 115 mg/dl (unkn own) (unknown) (no date) (unknown) (unknown) 133 mmol/l (unkn own) (unknown) (no date) (unknown) (unknown) 133 mmol/l (unkn own) (unknown) (no date) (unknown) (unknown) 16 mg/dl (unkn own) (unknown) (no date) (unknown) (unknown) 2.9 g/dl (unkn own) (unknown) (no date) (unknown) (unknown) 26 mmol/l (unkn own) (unknown) (no date) (unknown) (unknown) 3.8 g/dl (unkn own) (unknown) (no date) (unknown) (unknown) 3.9 mmol/l (unkn own) (unknown) (no date) (unknown) (unknown) 40 iu/l (unkn own) (unknown) (no date) (unknown) (unknown) 43.2 (units unknown) (unknown) (unknown) (no date) (unknown) (unknown) 52 iu/l (unkn own) (unknown) (no date) (unknown) (unknown) 58 u/l (unkn own) (unknown) (no date) (unknown) (unknown) 6.7 g/dl (unkn own) (unknown) (no date) (unknown) (unknown) 9.0 mg/dl (unkn own) Result panel 124 (unknown) (no date) (unknown) (unknown) 1.1 mmol/l (unkn own) Result panel 125 (unknown) (no date) (unknown) (unknown) > 60 ml/min (unkn own) (unknown) (no date) (unknown) (unknown) > 60 ml/min (unkn own) (unknown) (no date) (unknown) (unknown) < 0.012 ng/ml (unkn own) (unknown) (no date) (unknown) (unknown) < 0.012 ng/ml (unkn own) (unknown) (no date) (unknown) (unknown) 0.37 mg/dl (unkn own) (unknown) (no date) (unknown) (unknown) 0.5 mg/dl (unkn own) (unknown) (no date) (unknown) (unknown) 1.3 (units (unkn own) unknown) (unknown) (no date) (unknown) (unknown) 101 mmol/l (unkn own) (unknown) (no date) (unknown) (unknown) 115 mg/dl (unkn own) (unknown) (no date) (unknown) (unknown) 115 mg/dl (unkn own) (unknown) (no date) (unknown) (unknown) 133 mmol/l (unkn own) (unknown) (no date) (unknown) (unknown) 133 mmol/l (unkn own) (unknown) (no date) (unknown) (unknown) 16 mg/dl (unkn own) (unknown) (no date) (unknown) (unknown) 2.9 g/dl (unkn own) (unknown) (no date) (unknown) (unknown) 26 mmol/l (unkn own) (unknown) (no date) (unknown) (unknown) 3.8 g/dl (unkn own) (unknown) (no date) (unknown) (unknown) 3.9 mmol/l (unkn own) (unknown) (no date) (unknown) (unknown) 359 pg/ml (unkn own) (unknown) (no date) (unknown) (unknown) 359 pg/ml (unkn own) (unknown) (no date) (unknown) (unknown) 40 iu/l (unkn own) (unknown) (no date) (unknown) (unknown) 43.2 (units (unkn own) unknown) (unknown) (no date) (unknown) (unknown) 52 iu/l (unkn own) (unknown) (no date) (unknown) (unknown) 58 u/l (unkn own) (unknown) (no date) (unknown) (unknown) 6.7 g/dl (unkn own) (unknown) (no date) (unknown) (unknown) 9.0 mg/dl (unkn own) Result panel 126 (unknown) (no (unknown) (unknown) (no value) (units (unk nown) date) unknown) (unknown) (no (unknown) (unknown) [id number] (units (unkno wn) date) unknown) (unknown) (no (unknown) (unknown) 08/17/22 08/17/22 (units (unknown) date) 08/17/22 unknown) Range/Units (unknown) (no (unknown) (unknown) 08/17/22 13:06 (units (unknown) date) unknown) (unknown) (no (unknown) (unknown) 08/17/22 13:16 (units (unknown) date) unknown) (unknown) (no (unknown) (unknown) 08/17/22 13:20 (units (unknown) date) unknown) (unknown) (no (unknown) (unknown) 08/17/22 (units (unkno wn) date) Range/Units unknown) (unknown) (no (unknown) (unknown) 08/17/22 (units (unkno wn) date) unknown) (unknown) (no (unknown) (unknown) [address] [place] [address] (units (unknown) date) unknown) (unknown) (no (unknown) (unknown) 13:01 (units (unkno wn) date) unknown) (unknown) (no (unknown) (unknown) 13:20 13:20 13:20 (units (unknown) date) unknown) (unknown) (no (unknown) (unknown) 13:20 (units (unkno wn) date) unknown) (unknown) (no (unknown) (unknown) 82-year-old (units (un known) date) female with a unknown) history of small-bowel obstruction with resection (unknown) (no (unknown) (unknown) ? (units (unkno wn) date) unknown) (unknown) (no (unknown) (unknown) ALT (<35) IU/L (units (unknown) date) unknown) (unknown) (no (unknown) (unknown) ALT 40 H (<35) (units (unknown) date) IU/L unknown) (unknown) (no (unknown) (unknown) ANTIBIOTICS)] (units ( unknown) date) unknown) (unknown) (no (unknown) (unknown) AST (14-36) IU/L (units (unknown) date) unknown) (unknown) (no (unknown) (unknown) AST 52 H (14-36) (units (unknown) date) IU/L unknown) (unknown) (no (unknown) (unknown) Accession Number: (units (unknown) date) [id number] ?? unknown) (unknown) (no (unknown) (unknown) Acct:[id number] (units (unknown) date) unknown) (unknown) (no (unknown) (unknown) Age/Sex: 82 / F (units (unknown) date) unknown) (unknown) (no (unknown) (unknown) Albumin (3.5-5.0) (units (unknown) date) g/dL unknown) (unknown) (no (unknown) (unknown) Albumin 3.8 (units (un known) date) (3.5-5.0) g/dL unknown) (unknown) (no (unknown) (unknown) Albumin/Globulin (units (unknown) date) Ratio (1.0-2.8) unknown) (unknown) (no (unknown) (unknown) Albumin/Globulin (units (unknown) date) Ratio 1.3 unknown) (1.0-2.8) (unknown) (no (unknown) (unknown) Alkaline (units (unkno wn) date) Phosphatase unknown) (38-126) U/L (unknown) (no (unknown) (unknown) Alkaline (units (unkno wn) date) Phosphatase 58 unknown) (38-126) U/L (unknown) (no (unknown) (unknown) Allergies (units (unkn own) date) unknown) (unknown) (no (unknown) (unknown) Allergy/AdvReac (units (unknown) date) Type Severity unknown) Reaction Status Date / Time (unknown) (no (unknown) (unknown) [place], [place] (units ( unknown) date) [id number] unknown) (unknown) (no (unknown) (unknown) Antibiotics) (units (u nknown) date) unknown) (unknown) (no (unknown) (unknown) Approved by: Adam Marcosunits (unknown) date) Ryley Ruby on unknown) 08/17/2022 at 13:17?? (unknown) (no (unknown) (unknown) Attestation: I (units (unknown) date) reviewed the unknown) patient's lab results. (unknown) (no (unknown) (unknown) BACK: Nontender (units (unknown) date) without deformity unknown) or crepitance. No flank tenderness. (unknown) (no (unknown) (unknown) BUN (7-17) mg/dL (units (unknown) date) unknown) (unknown) (no (unknown) (unknown) BUN 16 (7-17) (units ( unknown) date) mg/dL unknown) (unknown) (no (unknown) (unknown) BUN/Creatinine (units (unknown) date) Ratio (6-22) unknown) (unknown) (no (unknown) (unknown) BUN/Creatinine (units (unknown) date) Ratio 43.2 H unknown) (6-22) (unknown) (no (unknown) (unknown) Baso # (Auto) (units ( unknown) date) (0-100) /uL unknown) (unknown) (no (unknown) (unknown) Baso # (Auto) 0 (units (unknown) date) (0-100) /uL unknown) (unknown) (no (unknown) (unknown) Baso % (Auto) (units ( unknown) date) (0-2) % unknown) (unknown) (no (unknown) (unknown) Baso % (Auto) 0.5 (units (unknown) date) (0-2) % unknown) (unknown) (no (unknown) (unknown) Blood Pressure (units (unknown) date) 163/73 H 08/17/22 unknown) 13:01 (unknown) (no (unknown) (unknown) Blood Pressure (units (unknown) date) 163/73 H unknown) (unknown) (no (unknown) (unknown) Bones and chest (units (unknown) date) wall:? No unknown) suspicious bony abnormalities.? Soft tissues appear (unknown) (no (unknown) (unknown) CARDIOVASCULAR: (units (unknown) date) Regular rate and unknown) rhythm without murmurs, gallops, or rubs. (unknown) (no (unknown) (unknown) COMPARISON:? (units (u nknown) date) None. unknown) (unknown) (no (unknown) (unknown) Calcium (units (unkno wn) date) (8.4-10.2) mg/dL unknown) (unknown) (no (unknown) (unknown) Calcium 9.0 (units (un known) date) (8.4-10.2) mg/dL unknown) (unknown) (no (unknown) (unknown) Carbon Dioxide (units (unknown) date) (22-32) mmol/L unknown) (unknown) (no (unknown) (unknown) Carbon Dioxide 26 (units (unknown) date) (22-32) mmol/L unknown) (unknown) (no (unknown) (unknown) Chest x-ray: (units (u nknown) date) unknown) (unknown) (no (unknown) (unknown) Chief Complaint: (units (unknown) date) Shortness of unknown) Breath/Dyspnea (unknown) (no (unknown) (unknown) Chloride (98-107) (units (unknown) date) mmol/L unknown) (unknown) (no (unknown) (unknown) Chloride 101 (units (u nknown) date) (98-107) mmol/L unknown) (unknown) (no (unknown) (unknown) Complete Blood (units (unknown) date) Count AUTO DIFF unknown) Stat (unknown) (no (unknown) (unknown) Comprehensive (units ( unknown) date) Metabolic Panel unknown) Stat (unknown) (no (unknown) (unknown) Course (units (unkno wn) date) unknown) (unknown) (no (unknown) (unknown) Creatinine (units (unk nown) date) (0.52-1.04) mg/dL unknown) (unknown) (no (unknown) (unknown) Creatinine 0.37 L (units (unknown) date) (0.52-1.04) mg/dL unknown) (unknown) (no (unknown) (unknown) : 1940 (units (unknown) date) Acct:[id number] unknown) (unknown) (no (unknown) (unknown) : 1940 (units (unknown) date) unknown) (unknown) (no (unknown) (unknown) Date of Service: (units (unknown) date) 08/17/22 unknown) (unknown) (no (unknown) (unknown) Dictated by: Adam (units (unknown) date) Ryley Ruby on unknown) 08/17/2022 at 13:17 ? ? (unknown) (no (unknown) (unknown) Differential (units (u nknown) date) Diagnosis unknown) (unknown) (no (unknown) (unknown) Differential (units (un known) date) diagnosis: Likely unknown) acute exacerbation of chronic obstructive airways (unknown) (no (unknown) (unknown) ED Orders (units (unkn own) date) unknown) (unknown) (no (unknown) (unknown) EKG-12 Lead Stat (units (unknown) date) unknown) (unknown) (no (unknown) (unknown) ENT: Nose without (units (unknown) date) bleeding, purulent unknown) drainage. 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 No edema or (unknown) (no (unknown) (unknown) EYES: Pupils (units (u nknown) date) equal round and unknown) reactive. Extraocular motions intact. No scleral (unknown) (no (unknown) (unknown) Emergency Report (units (unknown) date) unknown) (unknown) (no (unknown) (unknown) Eos # (Auto) (units (u nknown) date) (0-450) /uL unknown) (unknown) (no (unknown) (unknown) Eos # (Auto) 100 (units (unknown) date) (0-450) /uL unknown) (unknown) (no (unknown) (unknown) Eos % (Auto) (units (u nknown) date) (2-4) % unknown) (unknown) (no (unknown) (unknown) Eos % (Auto) 1.1 (units (unknown) date) L (2-4) % unknown) (unknown) (no (unknown) (unknown) Estimated GFR > (units (unknown) date) 60 (>60) mL/min unknown) (unknown) (no (unknown) (unknown) Estimated GFR (units ( unknown) date) (>60) mL/min unknown) (unknown) (no (unknown) (unknown) Exam Narrative: (units (unknown) date) unknown) (unknown) (no (unknown) (unknown) Exam (units (unkno wn) date) unknown) (unknown) (no (unknown) (unknown) FINDINGS:? (units (unk nown) date) unknown) (unknown) (no (unknown) (unknown) GASTROINTESTINAL: (units (unknown) date) Abdomen soft, unknown) non-tender, nondistended. (unknown) (no (unknown) (unknown) GENERAL: 82 year (units (unknown) date) old patient unknown) appears stated age. Well-developed patient, in mild (unknown) (no (unknown) (unknown) General (units (unkno wn) date) unknown) (unknown) (no (unknown) (unknown) Globulin (units (unkno wn) date) (1.7-4.1) g/dL unknown) (unknown) (no (unknown) (unknown) Globulin 2.9 (units (u nknown) date) (1.7-4.1) g/dL unknown) (unknown) (no (unknown) (unknown) Glucose (80-110) (units (unknown) date) mg/dL unknown) (unknown) (no (unknown) (unknown) Glucose 115 H (units ( unknown) date) (80-110) mg/dL unknown) (unknown) (no (unknown) (unknown) HEAD: Atraumatic. (units (unknown) date) Normocephalic. unknown) (unknown) (no (unknown) (unknown) HPI - SOB/Dyspnea (units (unknown) date) unknown) (unknown) (no (unknown) (unknown) HPI Narrative: (units (unknown) date) unknown) (unknown) (no (unknown) (unknown) Hct (36-46) % (units ( unknown) date) unknown) (unknown) (no (unknown) (unknown) Hct 36.8 (36-46) (units (unknown) date) % unknown) (unknown) (no (unknown) (unknown) Hgb (12.0-16.0) (units (unknown) date) g/dL unknown) (unknown) (no (unknown) (unknown) Hgb 12.1 (units (unkno wn) date) (12.0-16.0) g/dL unknown) (unknown) (no (unknown) (unknown) History of (units (unk nown) date) Present Illness unknown) (unknown) (no (unknown) (unknown) IMPRESSION:? (units (u nknown) date) COPD.? No acute unknown) cardiopulmonary pathology. (unknown) (no (unknown) (unknown) INDICATIONS:? SOB (units (unknown) date) cough unknown) (unknown) (no (unknown) (unknown) INR (0.9-1.3) (units ( unknown) date) unknown) (unknown) (no (unknown) (unknown) INR 1.1 (0.9-1.3) (units (unknown) date) unknown) (unknown) (no (unknown) (unknown) Imaging Data (units (u nknown) date) unknown) (unknown) (no (unknown) (unknown) Initial Vital (units ( unknown) date) Signs unknown) (unknown) (no (unknown) (unknown) Initial Vital (units ( unknown) date) Signs: unknown) (unknown) (no (unknown) (unknown) [facility] (units (unknown) date) [address] unknown) [place] [address] (unknown) (no (unknown) (unknown) [facility] (units (unknown) date) unknown) (unknown) (no (unknown) (unknown) Lab Data (units (unkno wn) date) unknown) (unknown) (no (unknown) (unknown) Lab Results (units (un known) date) unknown) (unknown) (no (unknown) (unknown) Labs: (units (unkno wn) date) unknown) (unknown) (no (unknown) (unknown) Lactate (0.7-2.1) (units (unknown) date) mmol/L unknown) (unknown) (no (unknown) (unknown) Lactate (Lactic (units (unknown) date) Acid) Stat unknown) (unknown) (no (unknown) (unknown) Lactate 1.1 (units (un known) date) (0.7-2.1) mmol/L unknown) (unknown) (no (unknown) (unknown) Loc: ED (units (unkno wn) date) unknown) (unknown) (no (unknown) (unknown) Lungs and (units (unkn own) date) pleura:? Lungs are unknown) clear.? Hyperinflation and chronic emphysematous (unknown) (no (unknown) (unknown) Lymph # (Auto) (units (unknown) date) (1250-8144) /uL unknown) (unknown) (no (unknown) (unknown) Lymph # (Auto) (units (unknown) date) 700 L (3802-5219) unknown) /uL (unknown) (no (unknown) (unknown) Lymph % (Auto) (units (unknown) date) (25-40) % unknown) (unknown) (no (unknown) (unknown) Lymph % (Auto) (units (unknown) date) 8.6 L (25-40) % unknown) (unknown) (no (unknown) (unknown) MCH (26-34) PG (units (unknown) date) unknown) (unknown) (no (unknown) (unknown) MCH 31.1 (26-34) (units (unknown) date) PG unknown) (unknown) (no (unknown) (unknown) MCHC (30-36) % (units (unknown) date) unknown) (unknown) (no (unknown) (unknown) MCHC 32.8 (30-36) (units (unknown) date) % unknown) (unknown) (no (unknown) (unknown) MCV (80-100) fL (units (unknown) date) unknown) (unknown) (no (unknown) (unknown) MCV 94.7 (80-100) (units (unknown) date) fL unknown) (unknown) (no (unknown) (unknown) MDM - SOB/Dyspnea (units (unknown) date) unknown) (unknown) (no (unknown) (unknown) MR#: [id number] (units (unknown) date) unknown) (unknown) (no (unknown) (unknown) Measure peak (units (u nknown) date) expiratory flow unknown) ONCE (unknown) (no (unknown) (unknown) Mediastinum:? (units ( unknown) date) Mediastinal unknown) contours are normal.? Heart size is normal.? (unknown) (no (unknown) (unknown) Mode of arrival: (units (unknown) date) Ambulatory unknown) (unknown) (no (unknown) (unknown) [place] # (Auto) (units ( unknown) date) (0-900) /uL unknown) (unknown) (no (unknown) (unknown) [place] # (Auto) 500 (units (unknown) date) (0-900) /uL unknown) (unknown) (no (unknown) (unknown) [place] % (Auto) (units ( unknown) date) (3-14) % unknown) (unknown) (no (unknown) (unknown) [place] % (Auto) 5.9 (units (unknown) date) (3-14) % unknown) (unknown) (no (unknown) (unknown) NECK: Trachea (units ( unknown) date) midline. Non unknown) tender (unknown) (no (unknown) (unknown) NEURO: AOx3. (units (u nknown) date) unknown) (unknown) (no (unknown) (unknown) NT-Pro-B (units (unkno wn) date) Natriuret Pep unknown) (<450) pg/mL (unknown) (no (unknown) (unknown) NT-Pro-B (units (unkno wn) date) Natriuret Pep 359 unknown) (<450) pg/mL (unknown) (no (unknown) (unknown) NT-proBNP (units (unkn own) date) (BNP-Adult 18+) unknown) Stat (unknown) (no (unknown) (unknown) Narrative (units (unkn own) date) unknown) (unknown) (no (unknown) (unknown) Narrative: (units (unk nown) date) unknown) (unknown) (no (unknown) (unknown) Neut # (Auto) (units ( unknown) date) (8806-8123) /uL unknown) (unknown) (no (unknown) (unknown) Neut # (Auto) (units ( unknown) date) 6900 (1738-4769) unknown) /uL (unknown) (no (unknown) (unknown) Neut % (Auto) (units ( unknown) date) (50-75) % unknown) (unknown) (no (unknown) (unknown) Neut % (Auto) (units ( unknown) date) 83.9 H (50-75) % unknown) (unknown) (no (unknown) (unknown) Ordered: (units (unkno wn) date) unknown) (unknown) (no (unknown) (unknown) Ordering (units (unkno wn) date) Provider: unknown) Jeri Adam P.A-C (unknown) (no (unknown) (unknown) Orders (units (unkno wn) date) unknown) (unknown) (no (unknown) (unknown) Oxygen Delivery (units (unknown) date) Method Room Air unknown) 08/17/22 13:01 (unknown) (no (unknown) (unknown) Oxygen Delivery (units (unknown) date) Method Room Air unknown) (unknown) (no (unknown) (unknown) PROCEDURE:? XR (units (unknown) date) CHEST 2V unknown) (unknown) (no (unknown) (unknown) PT (10.1-12.7) (units (unknown) date) SECONDS unknown) (unknown) (no (unknown) (unknown) PT 13.1 H (units (unkn own) date) (10.1-12.7) unknown) SECONDS (unknown) (no (unknown) (unknown) Patient History (units (unknown) date) unknown) (unknown) (no (unknown) (unknown) Patient: (units (unkno wn) date) Verónica Joseph unknown) MR#: [id number] (unknown) (no (unknown) (unknown) Patient: (units (unkno wn) date) Verónica Joseph unknown) (unknown) (no (unknown) (unknown) Plt Count (units (unkn own) date) (150-400) X103/uL unknown) (unknown) (no (unknown) (unknown) Plt Count 179 (units ( unknown) date) (150-400) X103/uL unknown) (unknown) (no (unknown) (unknown) Potassium (units (unkn own) date) (3.4-5.1) mmol/L unknown) (unknown) (no (unknown) (unknown) Potassium 3.9 (units ( unknown) date) (3.4-5.1) mmol/L unknown) (unknown) (no (unknown) (unknown) Procedure: XR (units ( unknown) date) chest 2V unknown) (unknown) (no (unknown) (unknown) Prothrombin Time (units (unknown) date) INR Stat unknown) (unknown) (no (unknown) (unknown) Pulse Oximetry 95 (units (unknown) date) 08/17/22 13:01 unknown) (unknown) (no (unknown) (unknown) Pulse Oximetry 95 (units (unknown) date) unknown) (unknown) (no (unknown) (unknown) Pulse Rate 64 (units ( unknown) date) 08/17/22 13:01 unknown) (unknown) (no (unknown) (unknown) Pulse Rate 64 (units ( unknown) date) unknown) (unknown) (no (unknown) (unknown) RBC (4.0-5.2) (units ( unknown) date) X106/uL unknown) (unknown) (no (unknown) (unknown) RBC 3.89 L (units (unk nown) date) (4.0-5.2) X106/uL unknown) (unknown) (no (unknown) (unknown) RDW (11.6-14.8) % (units (unknown) date) unknown) (unknown) (no (unknown) (unknown) RDW 15.9 H (units (unk nown) date) (11.6-14.8) % unknown) (unknown) (no (unknown) (unknown) RESPIRATORY: Clear (units (unknown) date) to auscultation. unknown) Breath sounds equal bilaterally. No wheezes, (unknown) (no (unknown) (unknown) RT Consult Eval (units (unknown) date) and Treat NOW unknown) (unknown) (no (unknown) (unknown) Radiologist's (units ( unknown) date) Impression: unknown) (unknown) (no (unknown) (unknown) Related Data (units (u nknown) date) unknown) (unknown) (no (unknown) (unknown) Respiratory Rate (units (unknown) date) 18 08/17/22 13:01 unknown) (unknown) (no (unknown) (unknown) Respiratory Rate (units (unknown) date) 18 unknown) (unknown) (no (unknown) (unknown) Review of Systems (units (unknown) date) unknown) (unknown) (no (unknown) (unknown) SKIN: No rash or (units (unknown) date) erythema of unknown) visible areas (unknown) (no (unknown) (unknown) Signed By: (units (unk nown) date) unknown) (unknown) (no (unknown) (unknown) Signed (units (unkno wn) date) unknown) (unknown) (no (unknown) (unknown) Smoking Status: (units (unknown) date) Never smoker unknown) (unknown) (no (unknown) (unknown) Social History (units (unknown) date) (Reviewed 08/17/22 unknown) @ 13:34 by Jeri Adam PA-C) (unknown) (no (unknown) (unknown) Sodium (137-145) (units (unknown) date) mmol/L unknown) (unknown) (no (unknown) (unknown) Sodium 133 L (units (u nknown) date) (137-145) mmol/L unknown) (unknown) (no (unknown) (unknown) Source: patient (units (unknown) date) unknown) (unknown) (no (unknown) (unknown) Stated Complaint: (units (unknown) date) sent by jacky unknown) med, SOB (unknown) (no (unknown) (unknown) Substance Use (units ( unknown) date) Type: does not use unknown) (unknown) (no (unknown) (unknown) Sulfa (units (unkno wn) date) (Sulfonamide unknown) Allergy Unknown Verified 08/17/22 13:06 (unknown) (no (unknown) (unknown) Surgical changes (units (unknown) date) and devices:? unknown) None.? (unknown) (no (unknown) (unknown) TECHNIQUE:? 2 (units ( unknown) date) views of the chest unknown) were acquired.? (unknown) (no (unknown) (unknown) Temperature 97.9 (units (unknown) date) F 08/17/22 13:01 unknown) (unknown) (no (unknown) (unknown) Temperature 97.9 (units (unknown) date) F unknown) (unknown) (no (unknown) (unknown) Tetracyclines (units ( unknown) date) [TETRACYCLINES] unknown) Allergy Unknown Verified 08/17/22 13:06 (unknown) (no (unknown) (unknown) Time Seen by (units (u nknown) date) Provider: 08/17/22 unknown) 13:19 (unknown) (no (unknown) (unknown) Total Bilirubin (units (unknown) date) (0.2-1.3) mg/dL unknown) (unknown) (no (unknown) (unknown) Total Bilirubin (units (unknown) date) 0.5 (0.2-1.3) unknown) mg/dL (unknown) (no (unknown) (unknown) Total Protein (units ( unknown) date) (6.3-8.2) g/dL unknown) (unknown) (no (unknown) (unknown) Total Protein 6.7 (units (unknown) date) (6.3-8.2) g/dL unknown) (unknown) (no (unknown) (unknown) Troponin I < (units (u nknown) date) 0.012 (0.01-0.034) unknown) ng/mL (unknown) (no (unknown) (unknown) Troponin I (units (unk nown) date) (0.01-0.034) ng/mL unknown) (unknown) (no (unknown) (unknown) Troponin I Stat (units (unknown) date) unknown) (unknown) (no (unknown) (unknown) Unremarkable (units (u nknown) date) except as noted in unknown) the HPI (unknown) (no (unknown) (unknown) Vital Signs - 8 (units (unknown) date) hr unknown) (unknown) (no (unknown) (unknown) Vital Signs (units (un known) date) unknown) (unknown) (no (unknown) (unknown) Vital signs: (units (u nknown) date) unknown) (unknown) (no (unknown) (unknown) WBC (4.5-11.0) (units (unknown) date) X103/uL unknown) (unknown) (no (unknown) (unknown) WBC 8.3 (units (unkno wn) date) (4.5-11.0) X103/uL unknown) (unknown) (no (unknown) (unknown) XR chest 2V Stat (units (unknown) date) unknown) (unknown) (no (unknown) (unknown) XRay Report (units (un known) date) unknown) (unknown) (no (unknown) (unknown) [Embedded Image (units (unknown) date) Not Available] unknown) (unknown) (no (unknown) (unknown) [SULFA (units (unkno wn) date) (SULFONAMIDE unknown) (unknown) (no (unknown) (unknown) abdominal pain, (units (unknown) date) chest pain or any unknown) other symptoms. Patient does state that she (unknown) (no (unknown) (unknown) alcohol intake (units (unknown) date) frequency: 0-2 unknown) drinks per day (unknown) (no (unknown) (unknown) and short of (units (u nknown) date) breath with unknown) exertion over the past 2 or 3 days. Patient states it (unknown) (no (unknown) (unknown) bothersome as it (units (unknown) date) is going on 24 unknown) hours a day she is been taking Mucinex and (unknown) (no (unknown) (unknown) changes are (units (un known) date) unknown) (unknown) (no (unknown) (unknown) disease, (units (unkno wn) date) community acquired unknown) pneumonia and other (Viral URI, CHF, [place]) (unknown) (no (unknown) (unknown) distress, (units (unkn own) date) well-appearing. unknown) (unknown) (no (unknown) (unknown) due to some (units (un known) date) depression changes unknown) and sent her here for further evaluation. (unknown) (no (unknown) (unknown) has a friend that (units (unknown) date) recently tested unknown) positive for COVID but otherwise has not had (unknown) (no (unknown) (unknown) has maybe had some (units (unknown) date) mild swelling in unknown) her feet but has not noticed any weight gain (unknown) (no (unknown) (unknown) icterus. No (units (un known) date) injection or unknown) drainage. (unknown) (no (unknown) (unknown) is unusual for her (units (unknown) date) to feel short of unknown) breath with exertion, she does feel that she (unknown) (no (unknown) (unknown) joint tenderness. (units (unknown) date) unknown) (unknown) (no (unknown) (unknown) loose stools (units (u nknown) date) which have been unknown) unchanged for her. 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 She endorses chronic intermittent (unknown) (no (unknown) (unknown) or swelling of (units (unknown) date) her ankles or unknown) anywhere else. She states the cough has been (unknown) (no (unknown) (unknown) penicillin G (units (u nknown) date) [PENICILLIN G] unknown) Allergy Unknown Verified 08/17/22 13:06 (unknown) (no (unknown) (unknown) presents with (units ( unknown) date) concern for unknown) fatigue, a cough and feeling somewhat short of breath (unknown) (no (unknown) (unknown) productive with (units (unknown) date) mucus coming up. unknown) She denies fevers, chills, loss of appetite, (unknown) (no (unknown) (unknown) rales, or (units (unkn own) date) rhonchi. unknown) (unknown) (no (unknown) (unknown) seen.? No pleural (units (unknown) date) effusions or unknown) pneumothorax.? (unknown) (no (unknown) (unknown) sick contacts. Pt (units (unknown) date) [facility] and had a (unknown) (no (unknown) (unknown) tonsillar (units (unkn own) date) hypertrophy or unknown) exudate. Airway patent. (unknown) (no (unknown) (unknown) unremarkable.? (units (unknown) date) unknown) Result panel 127 (unknown) (no (unknown) (unknown) (no value) (units (unk nown) date) unknown) (unknown) (no (unknown) (unknown) (units (unkno wn) date) unknown) (unknown) (no (unknown) (unknown) [id number] (units (unkno wn) date) unknown) (unknown) (no (unknown) (unknown) 08/17/22 08/17/22 (units (unknown) date) 08/17/22 unknown) Range/Units (unknown) (no (unknown) (unknown) 08/17/22 13:06 (units (unknown) date) unknown) (unknown) (no (unknown) (unknown) 08/17/22 13:16 (units (unknown) date) unknown) (unknown) (no (unknown) (unknown) 08/17/22 13:20 (units (unknown) date) unknown) (unknown) (no (unknown) (unknown) 08/17/22 14:47 (units (unknown) date) unknown) (unknown) (no (unknown) (unknown) 08/17/22 (units (unkno wn) date) Range/Units unknown) (unknown) (no (unknown) (unknown) 08/17/22 (units (unkno wn) date) unknown) (unknown) (no (unknown) (unknown) [address] [place] [address] (units (unknown) date) unknown) (unknown) (no (unknown) (unknown) 13:01 (units (unkno wn) date) unknown) (unknown) (no (unknown) (unknown) 13:20 13:20 13:20 (units (unknown) date) unknown) (unknown) (no (unknown) (unknown) 13:20 (units (unkno wn) date) unknown) (unknown) (no (unknown) (unknown) 1445 (units (unkno wn) date) unknown) (unknown) (no (unknown) (unknown) 3-4 days of (units (un known) date) persistent unknown) bothersome wet sounding cough sent by [facility] (unknown) (no (unknown) (unknown) 82-year-old (units (un known) date) female with a unknown) history of small-bowel obstruction with resection (unknown) (no (unknown) (unknown) ? (units (unkno wn) date) unknown) (unknown) (no (unknown) (unknown) ALT (<35) IU/L (units (unknown) date) unknown) (unknown) (no (unknown) (unknown) ALT 40 H (<35) (units (unknown) date) IU/L unknown) (unknown) (no (unknown) (unknown) ANTIBIOTICS)] (units ( unknown) date) unknown) (unknown) (no (unknown) (unknown) AST (14-36) IU/L (units (unknown) date) unknown) (unknown) (no (unknown) (unknown) AST 52 H (14-36) (units (unknown) date) IU/L unknown) (unknown) (no (unknown) (unknown) Accession Number: (units (unknown) date) [id number] ?? unknown) (unknown) (no (unknown) (unknown) Acct:[id number] (units (unknown) date) unknown) (unknown) (no (unknown) (unknown) Age/Sex: 82 / F (units (unknown) date) unknown) (unknown) (no (unknown) (unknown) Albumin (3.5-5.0) (units (unknown) date) g/dL unknown) (unknown) (no (unknown) (unknown) Albumin 3.8 (units (un known) date) (3.5-5.0) g/dL unknown) (unknown) (no (unknown) (unknown) Albumin/Globulin (units (unknown) date) Ratio (1.0-2.8) unknown) (unknown) (no (unknown) (unknown) Albumin/Globulin (units (unknown) date) Ratio 1.3 unknown) (1.0-2.8) (unknown) (no (unknown) (unknown) Alkaline (units (unkno wn) date) Phosphatase unknown) (38-126) U/L (unknown) (no (unknown) (unknown) Alkaline (units (unkno wn) date) Phosphatase 58 unknown) (38-126) U/L (unknown) (no (unknown) (unknown) Allergies (units (unkn own) date) unknown) (unknown) (no (unknown) (unknown) Allergy/AdvReac (units (unknown) date) Type Severity unknown) Reaction Status Date / Time (unknown) (no (unknown) (unknown) [place], [place] (units ( unknown) date) [address] unknown) (unknown) (no (unknown) (unknown) Antibiotics) (units (u nknown) date) unknown) (unknown) (no (unknown) (unknown) Approved by: Adam (units (unknown) date) Ryley Ruby on unknown) 08/17/2022 at 13:17?? (unknown) (no (unknown) (unknown) Attestation: I (units (unknown) date) personally unknown) reviewed and interpreted this ECG as follows: (unknown) (no (unknown) (unknown) Attestation: I (units (unknown) date) reviewed the unknown) patient's lab results. (unknown) (no (unknown) (unknown) Attestation: I (units (unknown) date) reviewed the unknown) patient's medical records. (unknown) (no (unknown) (unknown) BACK: Nontender (units (unknown) date) without deformity unknown) or crepitance. No flank tenderness. (unknown) (no (unknown) (unknown) BUN (7-17) mg/dL (units (unknown) date) unknown) (unknown) (no (unknown) (unknown) BUN 16 (7-17) (units ( unknown) date) mg/dL unknown) (unknown) (no (unknown) (unknown) BUN/Creatinine (units (unknown) date) Ratio (6-22) unknown) (unknown) (no (unknown) (unknown) BUN/Creatinine (units (unknown) date) Ratio 43.2 H unknown) (6-22) (unknown) (no (unknown) (unknown) Baso # (Auto) (units ( unknown) date) (0-100) /uL unknown) (unknown) (no (unknown) (unknown) Baso # (Auto) 0 (units (unknown) date) (0-100) /uL unknown) (unknown) (no (unknown) (unknown) Baso % (Auto) (units ( unknown) date) (0-2) % unknown) (unknown) (no (unknown) (unknown) Baso % (Auto) 0.5 (units (unknown) date) (0-2) % unknown) (unknown) (no (unknown) (unknown) Blood Pressure (units (unknown) date) 163/73 H 08/17/22 unknown) 13:01 (unknown) (no (unknown) (unknown) Blood Pressure (units (unknown) date) 163/73 H unknown) (unknown) (no (unknown) (unknown) Bones and chest (units (unknown) date) wall:? No unknown) suspicious bony abnormalities.? Soft tissues appear (unknown) (no (unknown) (unknown) CARDIOVASCULAR: (units (unknown) date) Regular rate and unknown) rhythm without murmurs, gallops, or rubs. (unknown) (no (unknown) (unknown) COMPARISON:? (units (u nknown) date) None. unknown) (unknown) (no (unknown) (unknown) Calcium (units (unkno wn) date) (8.4-10.2) mg/dL unknown) (unknown) (no (unknown) (unknown) Calcium 9.0 (units (un known) date) (8.4-10.2) mg/dL unknown) (unknown) (no (unknown) (unknown) Carbon Dioxide (units (unknown) date) (22-32) mmol/L unknown) (unknown) (no (unknown) (unknown) Carbon Dioxide 26 (units (unknown) date) (22-32) mmol/L unknown) (unknown) (no (unknown) (unknown) Chest x-ray: (units (u nknown) date) unknown) (unknown) (no (unknown) (unknown) Chief Complaint: (units (unknown) date) Shortness of unknown) Breath/Dyspnea (unknown) (no (unknown) (unknown) Chloride (98-107) (units (unknown) date) mmol/L unknown) (unknown) (no (unknown) (unknown) Chloride 101 (units (u nknown) date) (98-107) mmol/L unknown) (unknown) (no (unknown) (unknown) Complete Blood (units (unknown) date) Count AUTO DIFF unknown) Stat (unknown) (no (unknown) (unknown) Comprehensive (units ( unknown) date) Metabolic Panel unknown) Stat (unknown) (no (unknown) (unknown) Course Narrative: (units (unknown) date) unknown) (unknown) (no (unknown) (unknown) Course (units (unkno wn) date) unknown) (unknown) (no (unknown) (unknown) Creatinine (units (unk nown) date) (0.52-1.04) mg/dL unknown) (unknown) (no (unknown) (unknown) Creatinine 0.37 L (units (unknown) date) (0.52-1.04) mg/dL unknown) (unknown) (no (unknown) (unknown) : 1940 (units (unknown) date) Acct:[id number] unknown) (unknown) (no (unknown) (unknown) : 1940 (units (unknown) date) unknown) (unknown) (no (unknown) (unknown) Date of Service: (units (unknown) date) 08/17/22 unknown) (unknown) (no (unknown) (unknown) Dictated by: Adam (units (unknown) date) Ryley Ruby on unknown) 08/17/2022 at 13:17 ? ? (unknown) (no (unknown) (unknown) Did discuss the (units (unknown) date) results of labs unknown) thus far and the patient's EKG with her, (unknown) (no (unknown) (unknown) Differential (units (u nknown) date) Diagnosis unknown) (unknown) (no (unknown) (unknown) Differential (units (un known) date) diagnosis: Likely unknown) acute exacerbation of chronic obstructive airways (unknown) (no (unknown) (unknown) ECG Data (units (unkno wn) date) unknown) (unknown) (no (unknown) (unknown) ED Orders (units (unkn own) date) unknown) (unknown) (no (unknown) (unknown) EKG-12 Lead Stat (units (unknown) date) unknown) (unknown) (no (unknown) (unknown) ENT: Nose without (units (unknown) date) bleeding, purulent unknown) drainage. 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 No edema or (unknown) (no (unknown) (unknown) EYES: Pupils (units (u nknown) date) equal round and unknown) reactive. Extraocular motions intact. No scleral (unknown) (no (unknown) (unknown) Emergency Report (units (unknown) date) unknown) (unknown) (no (unknown) (unknown) Eos # (Auto) (units (u nknown) date) (0-450) /uL unknown) (unknown) (no (unknown) (unknown) Eos # (Auto) 100 (units (unknown) date) (0-450) /uL unknown) (unknown) (no (unknown) (unknown) Eos % (Auto) (units (u nknown) date) (2-4) % unknown) (unknown) (no (unknown) (unknown) Eos % (Auto) 1.1 (units (unknown) date) L (2-4) % unknown) (unknown) (no (unknown) (unknown) Estimated GFR > (units (unknown) date) 60 (>60) mL/min unknown) (unknown) (no (unknown) (unknown) Estimated GFR (units ( unknown) date) (>60) mL/min unknown) (unknown) (no (unknown) (unknown) Exam Narrative: (units (unknown) date) unknown) (unknown) (no (unknown) (unknown) Exam (units (unkno wn) date) unknown) (unknown) (no (unknown) (unknown) FINDINGS:? (units (unk nown) date) unknown) (unknown) (no (unknown) (unknown) GASTROINTESTINAL: (units (unknown) date) Abdomen soft, unknown) non-tender, nondistended. (unknown) (no (unknown) (unknown) GENERAL: 82 year (units (unknown) date) old patient unknown) appears stated age. Well-developed patient, in mild (unknown) (no (unknown) (unknown) General (units (unkno wn) date) unknown) (unknown) (no (unknown) (unknown) Globulin (units (unkno wn) date) (1.7-4.1) g/dL unknown) (unknown) (no (unknown) (unknown) Globulin 2.9 (units (u nknown) date) (1.7-4.1) g/dL unknown) (unknown) (no (unknown) (unknown) Glucose (80-110) (units (unknown) date) mg/dL unknown) (unknown) (no (unknown) (unknown) Glucose 115 H (units ( unknown) date) (80-110) mg/dL unknown) (unknown) (no (unknown) (unknown) HEAD: Atraumatic. (units (unknown) date) Normocephalic. unknown) (unknown) (no (unknown) (unknown) HPI - SOB/Dyspnea (units (unknown) date) unknown) (unknown) (no (unknown) (unknown) HPI Narrative: (units (unknown) date) unknown) (unknown) (no (unknown) (unknown) Hct (36-46) % (units ( unknown) date) unknown) (unknown) (no (unknown) (unknown) Hct 36.8 (36-46) (units (unknown) date) % unknown) (unknown) (no (unknown) (unknown) Heart rate 61, (units (unknown) date) normal sinus unknown) rhythm, T-wave inversions in lead III, V1 biphasic (unknown) (no (unknown) (unknown) Hgb (12.0-16.0) (units (unknown) date) g/dL unknown) (unknown) (no (unknown) (unknown) Hgb 12.1 (units (unkno wn) date) (12.0-16.0) g/dL unknown) (unknown) (no (unknown) (unknown) History of (units (unk nown) date) Present Illness unknown) (unknown) (no (unknown) (unknown) I agree with (units (u nknown) date) radiologist's unknown) interpretation of the imaging (unknown) (no (unknown) (unknown) IMPRESSION:? (units (u nknown) date) COPD.? No acute unknown) cardiopulmonary pathology. (unknown) (no (unknown) (unknown) INDICATIONS:? SOB (units (unknown) date) cough unknown) (unknown) (no (unknown) (unknown) INR (0.9-1.3) (units ( unknown) date) unknown) (unknown) (no (unknown) (unknown) INR 1.1 (0.9-1.3) (units (unknown) date) unknown) (unknown) (no (unknown) (unknown) Imaging Data (units (u nknown) date) unknown) (unknown) (no (unknown) (unknown) Initial Vital (units ( unknown) date) Signs unknown) (unknown) (no (unknown) (unknown) Initial Vital (units ( unknown) date) Signs: unknown) (unknown) (no (unknown) (unknown) Interpretation: (units (unknown) date) unknown) (unknown) (no (unknown) (unknown) [facility] (units (unknown) date) [address] unknown) [place] [address] (unknown) (no (unknown) (unknown) [facility] (units (unknown) date) unknown) (unknown) (no (unknown) (unknown) Lab Data (units (unkno wn) date) unknown) (unknown) (no (unknown) (unknown) Lab Results (units (un known) date) unknown) (unknown) (no (unknown) (unknown) Labs: (units (unkno wn) date) unknown) (unknown) (no (unknown) (unknown) Lactate (0.7-2.1) (units (unknown) date) mmol/L unknown) (unknown) (no (unknown) (unknown) Lactate (Lactic (units (unknown) date) Acid) Stat unknown) (unknown) (no (unknown) (unknown) Lactate 1.1 (units (un known) date) (0.7-2.1) mmol/L unknown) (unknown) (no (unknown) (unknown) Loc: ED (units (unkno wn) date) unknown) (unknown) (no (unknown) (unknown) Lungs and (units (unkn own) date) pleura:? Lungs are unknown) clear.? Hyperinflation and chronic emphysematous (unknown) (no (unknown) (unknown) Lymph # (Auto) (units (unknown) date) (2742-7861) /uL unknown) (unknown) (no (unknown) (unknown) Lymph # (Auto) (units (unknown) date) 700 L (3470-0345) unknown) /uL (unknown) (no (unknown) (unknown) Lymph % (Auto) (units (unknown) date) (25-40) % unknown) (unknown) (no (unknown) (unknown) Lymph % (Auto) (units (unknown) date) 8.6 L (25-40) % unknown) (unknown) (no (unknown) (unknown) MCH (26-34) PG (units (unknown) date) unknown) (unknown) (no (unknown) (unknown) MCH 31.1 (26-34) (units (unknown) date) PG unknown) (unknown) (no (unknown) (unknown) MCHC (30-36) % (units (unknown) date) unknown) (unknown) (no (unknown) (unknown) MCHC 32.8 (30-36) (units (unknown) date) % unknown) (unknown) (no (unknown) (unknown) MCV (80-100) fL (units (unknown) date) unknown) (unknown) (no (unknown) (unknown) MCV 94.7 (80-100) (units (unknown) date) fL unknown) (unknown) (no (unknown) (unknown) MDM - SOB/Dyspnea (units (unknown) date) unknown) (unknown) (no (unknown) (unknown) MDM Narrative (units ( unknown) date) unknown) (unknown) (no (unknown) (unknown) MR#: [id number] (units (unknown) date) unknown) (unknown) (no (unknown) (unknown) Measure peak (units (u nknown) date) expiratory flow unknown) ONCE (unknown) (no (unknown) (unknown) Mediastinum:? (units ( unknown) date) Mediastinal unknown) contours are normal.? Heart size is normal.? (unknown) (no (unknown) (unknown) Medical Records (units (unknown) date) unknown) (unknown) (no (unknown) (unknown) Medical decision (units (unknown) date) making narrative: unknown) (unknown) (no (unknown) (unknown) Mode of arrival: (units (unknown) date) Ambulatory unknown) (unknown) (no (unknown) (unknown) [place] # (Auto) (units ( unknown) date) (0-900) /uL unknown) (unknown) (no (unknown) (unknown) [place] # (Auto) 500 (units (unknown) date) (0-900) /uL unknown) (unknown) (no (unknown) (unknown) [place] % (Auto) (units ( unknown) date) (3-14) % unknown) (unknown) (no (unknown) (unknown) [place] % (Auto) 5.9 (units (unknown) date) (3-14) % unknown) (unknown) (no (unknown) (unknown) My Impression: (units (unknown) date) unknown) (unknown) (no (unknown) (unknown) NECK: [place] (units ( unknown) date) midline. Non unknown) tender (unknown) (no (unknown) (unknown) NEURO: AOx3. (units (u nknown) date) unknown) (unknown) (no (unknown) (unknown) NT-Pro-B (units (unkno wn) date) Natriuret Pep unknown) (<450) pg/mL (unknown) (no (unknown) (unknown) NT-Pro-B (units (unkno wn) date) Natriuret Pep 359 unknown) (<450) pg/mL (unknown) (no (unknown) (unknown) NT-proBNP (units (unkn own) date) (BNP-Adult 18+) unknown) Stat (unknown) (no (unknown) (unknown) Narrative (units (unkn own) date) unknown) (unknown) (no (unknown) (unknown) Narrative: (units (unk nown) date) unknown) (unknown) (no (unknown) (unknown) Neut # (Auto) (units ( unknown) date) (4781-9432) /uL unknown) (unknown) (no (unknown) (unknown) Neut # (Auto) (units ( unknown) date) 6900 (1542-2266) unknown) /uL (unknown) (no (unknown) (unknown) Neut % (Auto) (units ( unknown) date) (50-75) % unknown) (unknown) (no (unknown) (unknown) Neut % (Auto) (units ( unknown) date) 83.9 H (50-75) % unknown) (unknown) (no (unknown) (unknown) Ordered: (units (unkno wn) date) unknown) (unknown) (no (unknown) (unknown) Ordering (units (unkno wn) date) Provider: unknown) Jeri Adam P.A-C (unknown) (no (unknown) (unknown) Orders (units (unkno wn) date) unknown) (unknown) (no (unknown) (unknown) Oxygen Delivery (units (unknown) date) Method Room Air unknown) 08/17/22 13:01 (unknown) (no (unknown) (unknown) Oxygen Delivery (units (unknown) date) Method Room Air unknown) (unknown) (no (unknown) (unknown) PROCEDURE:? XR (units (unknown) date) CHEST 2V unknown) (unknown) (no (unknown) (unknown) PT (10.1-12.7) (units (unknown) date) SECONDS unknown) (unknown) (no (unknown) (unknown) PT 13.1 H (units (unkn own) date) (10.1-12.7) unknown) SECONDS (unknown) (no (unknown) (unknown) Patient History (units (unknown) date) unknown) (unknown) (no (unknown) (unknown) Patient: (units (unkno wn) date) Verónica Joseph unknown) MR#: [id number] (unknown) (no (unknown) (unknown) Patient: (units (unkno wn) date) Verónica Joseph unknown) (unknown) (no (unknown) (unknown) Plt Count (units (unkn own) date) (150-400) X103/uL unknown) (unknown) (no (unknown) (unknown) Plt Count 179 (units ( unknown) date) (150-400) X103/uL unknown) (unknown) (no (unknown) (unknown) Potassium (units (unkn own) date) (3.4-5.1) mmol/L unknown) (unknown) (no (unknown) (unknown) Potassium 3.9 (units ( unknown) date) (3.4-5.1) mmol/L unknown) (unknown) (no (unknown) (unknown) Procedure: XR (units ( unknown) date) chest 2V unknown) (unknown) (no (unknown) (unknown) Prothrombin Time (units (unknown) date) INR Stat unknown) (unknown) (no (unknown) (unknown) Pulse Oximetry 95 (units (unknown) date) 08/17/22 13:01 unknown) (unknown) (no (unknown) (unknown) Pulse Oximetry 95 (units (unknown) date) unknown) (unknown) (no (unknown) (unknown) Pulse Rate 64 (units ( unknown) date) 08/17/22 13:01 unknown) (unknown) (no (unknown) (unknown) Pulse Rate 64 (units ( unknown) date) unknown) (unknown) (no (unknown) (unknown) RBC (4.0-5.2) (units ( unknown) date) X106/uL unknown) (unknown) (no (unknown) (unknown) RBC 3.89 L (units (unk nown) date) (4.0-5.2) X106/uL unknown) (unknown) (no (unknown) (unknown) RDW (11.6-14.8) % (units (unknown) date) unknown) (unknown) (no (unknown) (unknown) RDW 15.9 H (units (unk nown) date) (11.6-14.8) % unknown) (unknown) (no (unknown) (unknown) RESPIRATORY: Clear (units (unknown) date) to auscultation. unknown) Breath sounds equal bilaterally. No wheezes, (unknown) (no (unknown) (unknown) RT Consult Eval (units (unknown) date) and Treat NOW unknown) (unknown) (no (unknown) (unknown) Radiologist's (units ( unknown) date) Impression: unknown) (unknown) (no (unknown) (unknown) Related Data (units (u nknown) date) unknown) (unknown) (no (unknown) (unknown) Respiratory Panel (units (unknown) date) (Film Array) Stat unknown) (unknown) (no (unknown) (unknown) Respiratory Rate (units (unknown) date) 18 08/17/22 13:01 unknown) (unknown) (no (unknown) (unknown) Respiratory Rate (units (unknown) date) 18 unknown) (unknown) (no (unknown) (unknown) Review of Systems (units (unknown) date) unknown) (unknown) (no (unknown) (unknown) SKIN: No rash or (units (unknown) date) erythema of unknown) visible areas (unknown) (no (unknown) (unknown) Shared decision (units (unknown) date) making:: Shared unknown) decision-making was used in determining the (unknown) (no (unknown) (unknown) Signed By: (units (unk nown) date) unknown) (unknown) (no (unknown) (unknown) Signed (units (unkno wn) date) unknown) (unknown) (no (unknown) (unknown) Smoking Status: (units (unknown) date) Never smoker unknown) (unknown) (no (unknown) (unknown) Social History (units (unknown) date) (Reviewed 08/17/22 unknown) @ 13:34 by Jeri Adam PA-C) (unknown) (no (unknown) (unknown) Sodium (137-145) (units (unknown) date) mmol/L unknown) (unknown) (no (unknown) (unknown) Sodium 133 L (units (u nknown) date) (137-145) mmol/L unknown) (unknown) (no (unknown) (unknown) Source: patient (units (unknown) date) unknown) (unknown) (no (unknown) (unknown) Stated Complaint: (units (unknown) date) sent by jacky unknown) med, SOB (unknown) (no (unknown) (unknown) Substance Use (units ( unknown) date) Type: does not use unknown) (unknown) (no (unknown) (unknown) Sulfa (units (unkno wn) date) (Sulfonamide unknown) Allergy Unknown Verified 08/17/22 13:06 (unknown) (no (unknown) (unknown) Surgical changes (units (unknown) date) and devices:? unknown) None.? (unknown) (no (unknown) (unknown) T-wave lead V3 (units (unknown) date) otherwise unknown) unremarkable EKG with a no ectopy or ST changes noted (unknown) (no (unknown) (unknown) TECHNIQUE:? 2 (units ( unknown) date) views of the chest unknown) were acquired.? (unknown) (no (unknown) (unknown) Temperature 97.9 (units (unknown) date) F 08/17/22 13:01 unknown) (unknown) (no (unknown) (unknown) Temperature 97.9 (units (unknown) date) F unknown) (unknown) (no (unknown) (unknown) Tetracyclines (units ( unknown) date) [TETRACYCLINES] unknown) Allergy Unknown Verified 08/17/22 13:06 (unknown) (no (unknown) (unknown) This is a rather (units (unknown) date) well-appearing unknown) 82-year-old female who presents with concern for (unknown) (no (unknown) (unknown) Time Seen by (units (u nknown) date) Provider: 08/17/22 unknown) 13:19 (unknown) (no (unknown) (unknown) Total Bilirubin (units (unknown) date) (0.2-1.3) mg/dL unknown) (unknown) (no (unknown) (unknown) Total Bilirubin (units (unknown) date) 0.5 (0.2-1.3) unknown) mg/dL (unknown) (no (unknown) (unknown) Total Protein (units ( unknown) date) (6.3-8.2) g/dL unknown) (unknown) (no (unknown) (unknown) Total Protein 6.7 (units (unknown) date) (6.3-8.2) g/dL unknown) (unknown) (no (unknown) (unknown) Treatment and (units ( unknown) date) disposition unknown) (unknown) (no (unknown) (unknown) Troponin I < (units (u nknown) date) 0.012 (0.01-0.034) unknown) ng/mL (unknown) (no (unknown) (unknown) Troponin I (units (unk nown) date) (0.01-0.034) ng/mL unknown) (unknown) (no (unknown) (unknown) Troponin I Stat (units (unknown) date) unknown) (unknown) (no (unknown) (unknown) Unremarkable (units (u nknown) date) except as noted in unknown) the HPI (unknown) (no (unknown) (unknown) Vital Signs - 8 (units (unknown) date) hr unknown) (unknown) (no (unknown) (unknown) Vital Signs (units (un known) date) unknown) (unknown) (no (unknown) (unknown) Vital signs: (units (u nknown) date) unknown) (unknown) (no (unknown) (unknown) WBC (4.5-11.0) (units (unknown) date) X103/uL unknown) (unknown) (no (unknown) (unknown) WBC 8.3 (units (unkno wn) date) (4.5-11.0) X103/uL unknown) (unknown) (no (unknown) (unknown) XR chest 2V Stat (units (unknown) date) unknown) (unknown) (no (unknown) (unknown) XRay Report (units (un known) date) unknown) (unknown) (no (unknown) (unknown) [Embedded Image (units (unknown) date) Not Available] unknown) (unknown) (no (unknown) (unknown) [SULFA (units (unkno wn) date) (SULFONAMIDE unknown) (unknown) (no (unknown) (unknown) abdominal pain, (units (unknown) date) chest pain or any unknown) other symptoms. Patient does state that she (unknown) (no (unknown) (unknown) after finding (units ( unknown) date) negative flu and unknown) COVID and an EKG that they felt was concerning (unknown) (no (unknown) (unknown) alcohol intake (units (unknown) date) frequency: 0-2 unknown) drinks per day (unknown) (no (unknown) (unknown) and short of (units (u nknown) date) breath with unknown) exertion over the past 2 or 3 days. Patient states it (unknown) (no (unknown) (unknown) any diagnosis of (units (unknown) date) COPD. Patient unknown) stated she did not want to take any steroid (unknown) (no (unknown) (unknown) bothersome as it (units (unknown) date) is going on 24 unknown) hours a day she is been taking Mucinex and (unknown) (no (unknown) (unknown) changes are (units (un known) date) unknown) (unknown) (no (unknown) (unknown) changes noted on (units (unknown) date) her x-ray she does unknown) have a distant 13 year history but denied (unknown) (no (unknown) (unknown) cough and (units (unkn own) date) shortness of unknown) breath recently. This returns unremarkable and given (unknown) (no (unknown) (unknown) cough. Based on (units (unknown) date) labs and chest unknown) x-ray as well as exam, low suspicion for a (unknown) (no (unknown) (unknown) days repeat (units (un known) date) troponins are not unknown) obtained. Respiratory viral panel is obtained as (unknown) (no (unknown) (unknown) discussed options (units (unknown) date) noting that her unknown) chest x-ray suggestive of chronic mild (unknown) (no (unknown) (unknown) disease, (units (unkno wn) date) community acquired unknown) pneumonia and other (Viral URI, CHF, [place]) (unknown) (no (unknown) (unknown) distress, (units (unkn own) date) well-appearing. unknown) (unknown) (no (unknown) (unknown) due to some (units (un known) date) depression changes unknown) and sent her here for further evaluation. 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 EKG unknown) today in the emergency department is (unknown) (no (unknown) (unknown) has a friend that (units (unknown) date) recently tested unknown) positive for COVID but otherwise has not had (unknown) (no (unknown) (unknown) has maybe had some (units (unknown) date) mild swelling in unknown) her feet but has not noticed any weight gain (unknown) (no (unknown) (unknown) icterus. No (units (un known) date) injection or unknown) drainage. (unknown) (no (unknown) (unknown) is interested in (units (unknown) date) cough medicine. unknown) Labs are generally looking good however she (unknown) (no (unknown) (unknown) is unusual for her (units (unknown) date) to feel short of unknown) breath with exertion, she does feel that she (unknown) (no (unknown) (unknown) joint tenderness. (units (unknown) date) unknown) (unknown) (no (unknown) (unknown) loose stools (units (u nknown) date) which have been unknown) unchanged for her. She states it is somewhat (unknown) (no (unknown) (unknown) medication, she (units (unknown) date) is interested in unknown) receiving cough medicine for her bothersome (unknown) (no (unknown) (unknown) negative COVID (units (unknown) date) flu test but they unknown) did a 12 lead that they thought was concerning (unknown) (no (unknown) (unknown) occasionally (units (u nknown) date) fisherman's friend unknown) lozenges. She endorses chronic intermittent (unknown) (no (unknown) (unknown) or swelling of (units (unknown) date) her ankles or unknown) anywhere else. She states the cough has been (unknown) (no (unknown) (unknown) outpatient (units (unk nown) date) follow-up and unknown) treatment (unknown) (no (unknown) (unknown) patient is (units (unk nown) date) anxious to know unknown) what could be causing her symptoms. Did discuss (unknown) (no (unknown) (unknown) patient's (units (unkn own) date) evaluation today unknown) in the emergency department and her plan for (unknown) (no (unknown) (unknown) penicillin G (units (u nknown) date) [PENICILLIN G] unknown) Allergy Unknown Verified 08/17/22 13:06 (unknown) (no (unknown) (unknown) pneumonia and do (units (unknown) date) not feel that unknown) antibiotics are warranted. (unknown) (no (unknown) (unknown) presents with (units ( unknown) date) concern for unknown) fatigue, a cough and feeling somewhat short of breath (unknown) (no (unknown) (unknown) productive with (units (unknown) date) mucus coming up. unknown) She denies fevers, chills, loss of appetite, (unknown) (no (unknown) (unknown) rales, or (units (unkn own) date) rhonchi. unknown) (unknown) (no (unknown) (unknown) seen.? No pleural (units (unknown) date) effusions or unknown) pneumothorax.? (unknown) (no (unknown) (unknown) sick contacts. Pt (units (unknown) date) states she went to unknown) [facility] and was seen there and had a (unknown) (no (unknown) (unknown) still has (units (unkn own) date) respiratory panel unknown) pending. (unknown) (no (unknown) (unknown) that she is not (units (unknown) date) had any chest pain unknown) and her symptoms have been persistent for 3-4 (unknown) (no (unknown) (unknown) tonsillar (units (unkn own) date) hypertrophy or unknown) exudate. Airway patent. (unknown) (no (unknown) (unknown) unremarkable, (units ( unknown) date) cardiac workup is unknown) performed given the patient's age and report of (unknown) (no (unknown) (unknown) unremarkable.? (units (unknown) date) unknown) (unknown) (no (unknown) (unknown) with her possibly (units (unknown) date) treating her with unknown) a course of steroids given emphysematous Result panel 128 (unknown) (no date) (unknown) (unknown) Detected (units (unkn own) unknown) (unknown) (no date) (unknown) (unknown) Not Detected (units ( unknown) unknown) (unknown) (no date) (unknown) (unknown) Not Detected (units ( unknown) unknown) Result panel 129 (unknown) (no (unknown) (unknown) (no value) (units (unk nown) date) unknown) (unknown) (no (unknown) (unknown) (units (unkno wn) date) unknown) (unknown) (no (unknown) (unknown) [id number] (units (unkno wn) date) unknown) (unknown) (no (unknown) (unknown) 08/17/22 08/17/22 (units (unknown) date) 08/17/22 unknown) Range/Units (unknown) (no (unknown) (unknown) 08/17/22 08/17/22 (units (unknown) date) Range/Units unknown) (unknown) (no (unknown) (unknown) 08/17/22 13:06 (units (unknown) date) unknown) (unknown) (no (unknown) (unknown) 08/17/22 13:16 (units (unknown) date) unknown) (unknown) (no (unknown) (unknown) 08/17/22 13:20 (units (unknown) date) unknown) (unknown) (no (unknown) (unknown) 08/17/22 14:47 (units (unknown) date) unknown) (unknown) (no (unknown) (unknown) 08/17/22 (units (unkno wn) date) unknown) (unknown) (no (unknown) (unknown) 100 mg PO TID PRN (units (unknown) date) (Reason: cough) 7 unknown) Days Qty: 21 1RF (unknown) (no (unknown) (unknown) [address] (units (unknown) date) unknown) (unknown) (no (unknown) (unknown) 13:01 08/17/22 (units (unknown) date) unknown) (unknown) (no (unknown) (unknown) 13:20 13:20 13:20 (units (unknown) date) unknown) (unknown) (no (unknown) (unknown) 13:20 14:47 (units (un known) date) unknown) (unknown) (no (unknown) (unknown) 1445 (units (unkno wn) date) unknown) (unknown) (no (unknown) (unknown) 15:19 08/17/22 (units (unknown) date) unknown) (unknown) (no (unknown) (unknown) 16:23 (units (unkno wn) date) unknown) (unknown) (no (unknown) (unknown) 3-4 days of (units (un known) date) persistent unknown) bothersome wet sounding cough sent by [facility] (unknown) (no (unknown) (unknown) 82-year-old (units (un known) date) female with a unknown) history of small-bowel obstruction with resection (unknown) (no (unknown) (unknown) ? (units (unkno wn) date) unknown) (unknown) (no (unknown) (unknown) ALT (<35) IU/L (units (unknown) date) unknown) (unknown) (no (unknown) (unknown) ALT 40 H (<35) (units (unknown) date) IU/L unknown) (unknown) (no (unknown) (unknown) ANTIBIOTICS)] (units ( unknown) date) unknown) (unknown) (no (unknown) (unknown) AST (14-36) IU/L (units (unknown) date) unknown) (unknown) (no (unknown) (unknown) AST 52 H (14-36) (units (unknown) date) IU/L unknown) (unknown) (no (unknown) (unknown) Accession Number: (units (unknown) date) [id number] ?? unknown) (unknown) (no (unknown) (unknown) Acct:[id number] (units (unknown) date) unknown) (unknown) (no (unknown) (unknown) Activity (units (unkno wn) date) Restrictions/Addit unknown) ional Instructions: (unknown) (no (unknown) (unknown) Adenovirus (PCR) (units (unknown) date) (Not Detect) unknown) (unknown) (no (unknown) (unknown) Adenovirus (PCR) (units (unknown) date) Not detected (Not unknown) Detect) (unknown) (no (unknown) (unknown) Age/Sex: 82 / F (units (unknown) date) unknown) (unknown) (no (unknown) (unknown) Albumin (3.5-5.0) (units (unknown) date) g/dL unknown) (unknown) (no (unknown) (unknown) Albumin 3.8 (units (un known) date) (3.5-5.0) g/dL unknown) (unknown) (no (unknown) (unknown) Albumin/Globulin (units (unknown) date) Ratio (1.0-2.8) unknown) (unknown) (no (unknown) (unknown) Albumin/Globulin (units (unknown) date) Ratio 1.3 unknown) (1.0-2.8) (unknown) (no (unknown) (unknown) Alkaline (units (unkno wn) date) Phosphatase unknown) (38-126) U/L (unknown) (no (unknown) (unknown) Alkaline (units (unkno wn) date) Phosphatase 58 unknown) (38-126) U/L (unknown) (no (unknown) (unknown) Allergies (units (unkn own) date) unknown) (unknown) (no (unknown) (unknown) Allergy/AdvReac (units (unknown) date) Type Severity unknown) Reaction Status Date / Time (unknown) (no (unknown) (unknown) [place], [place] (units ( unknown) date) [id number] unknown) (unknown) (no (unknown) (unknown) Antibiotics) (units (u nknown) date) unknown) (unknown) (no (unknown) (unknown) Approved by: Adam (units (unknown) date) Ryley Ruby on unknown) 08/17/2022 at 13:17?? (unknown) (no (unknown) (unknown) Attestation: I (units (unknown) date) personally unknown) reviewed and interpreted this ECG as follows: (unknown) (no (unknown) (unknown) Attestation: I (units (unknown) date) reviewed the unknown) patient's lab results. (unknown) (no (unknown) (unknown) Attestation: I (units (unknown) date) reviewed the unknown) patient's medical records. (unknown) (no (unknown) (unknown) B. pertussis DNA (units (unknown) date) (PCR) (Not unknown) Detecte) (unknown) (no (unknown) (unknown) B. pertussis DNA (units (unknown) date) (PCR) Not detected unknown) (Not Detecte) (unknown) (no (unknown) (unknown) B.parapertussis (units (unknown) date) DNA PCR (Not unknown) Detecte) (unknown) (no (unknown) (unknown) B.parapertussis (units (unknown) date) DNA PCR Not unknown) detected (Not Detecte) (unknown) (no (unknown) (unknown) BACK: Nontender (units (unknown) date) without deformity unknown) or crepitance. No flank tenderness. (unknown) (no (unknown) (unknown) BUN (7-17) mg/dL (units (unknown) date) unknown) (unknown) (no (unknown) (unknown) BUN 16 (7-17) (units ( unknown) date) mg/dL unknown) (unknown) (no (unknown) (unknown) BUN/Creatinine (units (unknown) date) Ratio (6-22) unknown) (unknown) (no (unknown) (unknown) BUN/Creatinine (units (unknown) date) Ratio 43.2 H unknown) (6-22) (unknown) (no (unknown) (unknown) Baso # (Auto) (units ( unknown) date) (0-100) /uL unknown) (unknown) (no (unknown) (unknown) Baso # (Auto) 0 (units (unknown) date) (0-100) /uL unknown) (unknown) (no (unknown) (unknown) Baso % (Auto) (units ( unknown) date) (0-2) % unknown) (unknown) (no (unknown) (unknown) Baso % (Auto) 0.5 (units (unknown) date) (0-2) % unknown) (unknown) (no (unknown) (unknown) Benzonatate (units (un known) date) (Benzonatate 100 unknown) Mg Capsule) 100 mg PO NOW ONE (unknown) (no (unknown) (unknown) Blood Pressure (units (unknown) date) 163/73 H 08/17/22 unknown) 13:01 (unknown) (no (unknown) (unknown) Blood Pressure (units (unknown) date) 163/73 H 175/74 H unknown) 180/77 H (unknown) (no (unknown) (unknown) Bones and chest (units (unknown) date) wall:? No unknown) suspicious bony abnormalities.? Soft tissues appear (unknown) (no (unknown) (unknown) CARDIOVASCULAR: (units (unknown) date) Regular rate and unknown) rhythm without murmurs, gallops, or rubs. (unknown) (no (unknown) (unknown) COMPARISON:? (units (u nknown) date) None. unknown) (unknown) (no (unknown) (unknown) Calcium (units (unkno wn) date) (8.4-10.2) mg/dL unknown) (unknown) (no (unknown) (unknown) Calcium 9.0 (units (un known) date) (8.4-10.2) mg/dL unknown) (unknown) (no (unknown) (unknown) Carbon Dioxide (units (unknown) date) (22-32) mmol/L unknown) (unknown) (no (unknown) (unknown) Carbon Dioxide 26 (units (unknown) date) (22-32) mmol/L unknown) (unknown) (no (unknown) (unknown) Chest x-ray: (units (u nknown) date) unknown) (unknown) (no (unknown) (unknown) Chief Complaint: (units (unknown) date) Shortness of unknown) Breath/Dyspnea (unknown) (no (unknown) (unknown) Chlamy pneumoniae (units (unknown) date) PCR (Not Detect) unknown) (unknown) (no (unknown) (unknown) Chlamy pneumoniae (units (unknown) date) PCR Not detected unknown) (Not Detect) (unknown) (no (unknown) (unknown) Chloride (98-107) (units (unknown) date) mmol/L unknown) (unknown) (no (unknown) (unknown) Chloride 101 (units (u nknown) date) (98-107) mmol/L unknown) (unknown) (no (unknown) (unknown) Clinical (units (unkno wn) date) Impression: unknown) (unknown) (no (unknown) (unknown) Complete Blood (units (unknown) date) Count AUTO DIFF unknown) Stat (unknown) (no (unknown) (unknown) Comprehensive (units ( unknown) date) Metabolic Panel unknown) Stat (unknown) (no (unknown) (unknown) Coronavirus 229E (units (unknown) date) (PCR) (Not Detect) unknown) (unknown) (no (unknown) (unknown) Coronavirus 229E (units (unknown) date) (PCR) Not detected unknown) (Not Detect) (unknown) (no (unknown) (unknown) Coronavirus HKU1 (units (unknown) date) (PCR) (Not Detect) unknown) (unknown) (no (unknown) (unknown) Coronavirus HKU1 (units (unknown) date) (PCR) Not detected unknown) (Not Detect) (unknown) (no (unknown) (unknown) Coronavirus NL63 (units (unknown) date) (PCR) (Not Detect) unknown) (unknown) (no (unknown) (unknown) Coronavirus NL63 (units (unknown) date) (PCR) Not detected unknown) (Not Detect) (unknown) (no (unknown) (unknown) Coronavirus OC43 (units (unknown) date) (PCR) (Not Detect) unknown) (unknown) (no (unknown) (unknown) Coronavirus OC43 (units (unknown) date) (PCR) Detected H unknown) (Not Detect) (unknown) (no (unknown) (unknown) Coronavirus (units (un known) date) infection, Cough unknown) (unknown) (no (unknown) (unknown) Course Narrative: (units (unknown) date) unknown) (unknown) (no (unknown) (unknown) Course (units (unkno wn) date) unknown) (unknown) (no (unknown) (unknown) Creatinine (units (unk nown) date) (0.52-1.04) mg/dL unknown) (unknown) (no (unknown) (unknown) Creatinine 0.37 L (units (unknown) date) (0.52-1.04) mg/dL unknown) (unknown) (no (unknown) (unknown) : 1940 (units (unknown) date) Acct:[id number] unknown) (unknown) (no (unknown) (unknown) : 1940 (units (unknown) date) unknown) (unknown) (no (unknown) (unknown) Date of Service: (units (unknown) date) 08/17/22 unknown) (unknown) (no (unknown) (unknown) Departure (units (unkn own) date) unknown) (unknown) (no (unknown) (unknown) Dictated by: Adam (units (unknown) date) Ryley Ruby on unknown) 08/17/2022 at 13:17 ? ? (unknown) (no (unknown) (unknown) Did discuss the (units (unknown) date) results of labs unknown) thus far and the patient's EKG with her, (unknown) (no (unknown) (unknown) Differential (units (u nknown) date) Diagnosis unknown) (unknown) (no (unknown) (unknown) Differential (units (un known) date) diagnosis: Likely unknown) acute exacerbation of chronic obstructive airways (unknown) (no (unknown) (unknown) Discharge Plan (units (unknown) date) unknown) (unknown) (no (unknown) (unknown) Discontinued (units (u nknown) date) Medications unknown) (unknown) (no (unknown) (unknown) Documented By: KB (units (unknown) date) unknown) (unknown) (no (unknown) (unknown) ECG Data (units (unkno wn) date) unknown) (unknown) (no (unknown) (unknown) ED Orders (units (unkn own) date) unknown) (unknown) (no (unknown) (unknown) EKG-12 Lead Stat (units (unknown) date) unknown) (unknown) (no (unknown) (unknown) ENT: Nose without (units (unknown) date) bleeding, purulent unknown) drainage. 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 No edema or (unknown) (no (unknown) (unknown) EYES: Pupils (units (u nknown) date) equal round and unknown) reactive. Extraocular motions intact. No scleral (unknown) (no (unknown) (unknown) Emergency Report (units (unknown) date) unknown) (unknown) (no (unknown) (unknown) Entero/Rhino (units (u nknown) date) (PCR) (Not Detect) unknown) (unknown) (no (unknown) (unknown) Entero/Rhino (units (u nknown) date) (PCR) Not detected unknown) (Not Detect) (unknown) (no (unknown) (unknown) Eos # (Auto) (units (u nknown) date) (0-450) /uL unknown) (unknown) (no (unknown) (unknown) Eos # (Auto) 100 (units (unknown) date) (0-450) /uL unknown) (unknown) (no (unknown) (unknown) Eos % (Auto) (units (u nknown) date) (2-4) % unknown) (unknown) (no (unknown) (unknown) Eos % (Auto) 1.1 (units (unknown) date) L (2-4) % unknown) (unknown) (no (unknown) (unknown) Estimated GFR > (units (unknown) date) 60 (>60) mL/min unknown) (unknown) (no (unknown) (unknown) Estimated GFR (units ( unknown) date) (>60) mL/min unknown) (unknown) (no (unknown) (unknown) Exam Narrative: (units (unknown) date) unknown) (unknown) (no (unknown) (unknown) Exam (units (unkno wn) date) unknown) (unknown) (no (unknown) (unknown) FINDINGS:? (units (unk nown) date) unknown) (unknown) (no (unknown) (unknown) GASTROINTESTINAL: (units (unknown) date) Abdomen soft, unknown) non-tender, nondistended. (unknown) (no (unknown) (unknown) GENERAL: 82 year (units (unknown) date) old patient unknown) appears stated age. Well-developed patient, in mild (unknown) (no (unknown) (unknown) General (units (unkno wn) date) unknown) (unknown) (no (unknown) (unknown) Globulin (units (unkno wn) date) (1.7-4.1) g/dL unknown) (unknown) (no (unknown) (unknown) Globulin 2.9 (units (u nknown) date) (1.7-4.1) g/dL unknown) (unknown) (no (unknown) (unknown) Glucose (80-110) (units (unknown) date) mg/dL unknown) (unknown) (no (unknown) (unknown) Glucose 115 H (units ( unknown) date) (80-110) mg/dL unknown) (unknown) (no (unknown) (unknown) HEAD: Atraumatic. (units (unknown) date) Normocephalic. unknown) (unknown) (no (unknown) (unknown) HEART Score (units (un known) date) unknown) (unknown) (no (unknown) (unknown) HPI - SOB/Dyspnea (units (unknown) date) unknown) (unknown) (no (unknown) (unknown) HPI Narrative: (units (unknown) date) unknown) (unknown) (no (unknown) (unknown) Hct (36-46) % (units ( unknown) date) unknown) (unknown) (no (unknown) (unknown) Hct 36.8 (36-46) (units (unknown) date) % unknown) (unknown) (no (unknown) (unknown) Heart Score Age: (units (unknown) date) > or = 65 years unknown) old (unknown) (no (unknown) (unknown) Heart Score EKG: (units (unknown) date) Normal unknown) (unknown) (no (unknown) (unknown) Heart Score (units (un known) date) Total: 2 unknown) (unknown) (no (unknown) (unknown) Heart Score (units (un known) date) history: Slightly unknown) Suspicious (unknown) (no (unknown) (unknown) Heart Score risk (units (unknown) date) factors: No known unknown) risk factors (unknown) (no (unknown) (unknown) Heart Score (units (un known) date) troponin: < or = unknown) to normal limit (unknown) (no (unknown) (unknown) Heart rate 61, (units (unknown) date) normal sinus unknown) rhythm, T-wave inversions in lead III, V1 biphasic (unknown) (no (unknown) (unknown) Hgb (12.0-16.0) (units (unknown) date) g/dL unknown) (unknown) (no (unknown) (unknown) Hgb 12.1 (units (unkno wn) date) (12.0-16.0) g/dL unknown) (unknown) (no (unknown) (unknown) History of (units (unk nown) date) Present Illness unknown) (unknown) (no (unknown) (unknown) Human (units (unkno wn) date) Metapneumovir PCR unknown) (Not Detect) (unknown) (no (unknown) (unknown) Human (units (unkno wn) date) Metapneumovir PCR unknown) Not detected (Not Detect) (unknown) (no (unknown) (unknown) I agree with (units (u nknown) date) radiologist's unknown) interpretation of the imaging (unknown) (no (unknown) (unknown) I did prescribed (units (unknown) date) some cough unknown) medicine for you which I hope is helpful. We did (unknown) (no (unknown) (unknown) IMPRESSION:? (units (u nknown) date) COPD.? No acute unknown) cardiopulmonary pathology. (unknown) (no (unknown) (unknown) INDICATIONS:? SOB (units (unknown) date) cough unknown) (unknown) (no (unknown) (unknown) INR (0.9-1.3) (units ( unknown) date) unknown) (unknown) (no (unknown) (unknown) INR 1.1 (0.9-1.3) (units (unknown) date) unknown) (unknown) (no (unknown) (unknown) Imaging Data (units (u nknown) date) unknown) (unknown) (no (unknown) (unknown) Influenza Type A (units (unknown) date) (PCR) (Not Detect) unknown) (unknown) (no (unknown) (unknown) Influenza Type A (units (unknown) date) (PCR) Not detected unknown) (Not Detect) (unknown) (no (unknown) (unknown) Influenza Type B (units (unknown) date) (PCR) (Not Detect) unknown) (unknown) (no (unknown) (unknown) Influenza Type B (units (unknown) date) (PCR) Not detected unknown) (Not Detect) (unknown) (no (unknown) (unknown) Initial Vital (units ( unknown) date) Signs unknown) (unknown) (no (unknown) (unknown) Initial Vital (units ( unknown) date) Signs: unknown) (unknown) (no (unknown) (unknown) Interpretation: (units (unknown) date) unknown) (unknown) (no (unknown) (unknown) [facility] (units (unknown) date) [address] unknown) [place] [address] (unknown) (no (unknown) (unknown) [facility] (units (unknown) date) unknown) (unknown) (no (unknown) (unknown) Lab Data (units (unkno wn) date) unknown) (unknown) (no (unknown) (unknown) Lab Results (units (un known) date) unknown) (unknown) (no (unknown) (unknown) Labs: (units (unkno wn) date) unknown) (unknown) (no (unknown) (unknown) Lactate (0.7-2.1) (units (unknown) date) mmol/L unknown) (unknown) (no (unknown) (unknown) Lactate (Lactic (units (unknown) date) Acid) Stat unknown) (unknown) (no (unknown) (unknown) Lactate 1.1 (units (un known) date) (0.7-2.1) mmol/L unknown) (unknown) (no (unknown) (unknown) Last Admin: (units (un known) date) 08/17/22 16:20 unknown) Dose: 100 mg (unknown) (no (unknown) (unknown) Loc: ED (units (unkno wn) date) unknown) (unknown) (no (unknown) (unknown) Lungs and (units (unkn own) date) pleura:? Lungs are unknown) clear.? Hyperinflation and chronic emphysematous (unknown) (no (unknown) (unknown) Lymph # (Auto) (units (unknown) date) (4985-9607) /uL unknown) (unknown) (no (unknown) (unknown) Lymph # (Auto) (units (unknown) date) 700 L (2767-5834) unknown) /uL (unknown) (no (unknown) (unknown) Lymph % (Auto) (units (unknown) date) (25-40) % unknown) (unknown) (no (unknown) (unknown) Lymph % (Auto) (units (unknown) date) 8.6 L (25-40) % unknown) (unknown) (no (unknown) (unknown) M. pneumoniae (units ( unknown) date) (PCR) (Not Detect) unknown) (unknown) (no (unknown) (unknown) M. pneumoniae (units ( unknown) date) (PCR) Not detected unknown) (Not Detect) (unknown) (no (unknown) (unknown) MCH (26-34) PG (units (unknown) date) unknown) (unknown) (no (unknown) (unknown) MCH 31.1 (26-34) (units (unknown) date) PG unknown) (unknown) (no (unknown) (unknown) MCHC (30-36) % (units (unknown) date) unknown) (unknown) (no (unknown) (unknown) MCHC 32.8 (30-36) (units (unknown) date) % unknown) (unknown) (no (unknown) (unknown) MCV (80-100) fL (units (unknown) date) unknown) (unknown) (no (unknown) (unknown) MCV 94.7 (80-100) (units (unknown) date) fL unknown) (unknown) (no (unknown) (unknown) MDM - SOB/Dyspnea (units (unknown) date) unknown) (unknown) (no (unknown) (unknown) MDM Narrative (units ( unknown) date) unknown) (unknown) (no (unknown) (unknown) MR#: [id number] (units (unknown) date) unknown) (unknown) (no (unknown) (unknown) Measure peak (units (u nknown) date) expiratory flow unknown) ONCE (unknown) (no (unknown) (unknown) Mediastinum:? (units ( unknown) date) Mediastinal unknown) contours are normal.? Heart size is normal.? (unknown) (no (unknown) (unknown) Medical Records (units (unknown) date) unknown) (unknown) (no (unknown) (unknown) Medical decision (units (unknown) date) making narrative: unknown) (unknown) (no (unknown) (unknown) Medication (units (unk nown) date) Instructions unknown) Recorded (unknown) (no (unknown) (unknown) Mode of arrival: (units (unknown) date) Ambulatory unknown) (unknown) (no (unknown) (unknown) [place] # (Auto) (units ( unknown) date) (0-900) /uL unknown) (unknown) (no (unknown) (unknown) [place] # (Auto) 500 (units (unknown) date) (0-900) /uL unknown) (unknown) (no (unknown) (unknown) [place] % (Auto) (units ( unknown) date) (3-14) % unknown) (unknown) (no (unknown) (unknown) [place] % (Auto) 5.9 (units (unknown) date) (3-14) % unknown) (unknown) (no (unknown) (unknown) My Impression: (units (unknown) date) unknown) (unknown) (no (unknown) (unknown) NECK: [place] (units ( unknown) date) midline. Non unknown) tender (unknown) (no (unknown) (unknown) NEURO: AOx3. (units (u nknown) date) unknown) (unknown) (no (unknown) (unknown) NT-Pro-B (units (unkno wn) date) Natriuret Pep unknown) (<450) pg/mL (unknown) (no (unknown) (unknown) NT-Pro-B (units (unkno wn) date) Natriuret Pep 359 unknown) (<450) pg/mL (unknown) (no (unknown) (unknown) NT-proBNP (units (unkn own) date) (BNP-Adult 18+) unknown) Stat (unknown) (no (unknown) (unknown) Narrative (units (unkn own) date) unknown) (unknown) (no (unknown) (unknown) Narrative: (units (unk nown) date) unknown) (unknown) (no (unknown) (unknown) Neut # (Auto) (units ( unknown) date) (3035-9069) /uL unknown) (unknown) (no (unknown) (unknown) Neut # (Auto) (units ( unknown) date) 6900 (2220-6498) unknown) /uL (unknown) (no (unknown) (unknown) Neut % (Auto) (units ( unknown) date) (50-75) % unknown) (unknown) (no (unknown) (unknown) Neut % (Auto) (units ( unknown) date) 83.9 H (50-75) % unknown) (unknown) (no (unknown) (unknown) New (units (unkno wn) date) unknown) (unknown) (no (unknown) (unknown) Ordered: (units (unkno wn) date) unknown) (unknown) (no (unknown) (unknown) Ordering (units (unkno wn) date) Provider: unknown) Jeri Adam P.A-C (unknown) (no (unknown) (unknown) Orders (units (unkno wn) date) unknown) (unknown) (no (unknown) (unknown) Oxygen Delivery (units (unknown) date) Method Room Air unknown) 08/17/22 13:01 (unknown) (no (unknown) (unknown) Oxygen Delivery (units (unknown) date) Method Room Air unknown) Room Air Room Air (unknown) (no (unknown) (unknown) PROCEDURE:? XR (units (unknown) date) CHEST 2V unknown) (unknown) (no (unknown) (unknown) PT (10.1-12.7) (units (unknown) date) SECONDS unknown) (unknown) (no (unknown) (unknown) PT 13.1 H (units (unkn own) date) (10.1-12.7) unknown) SECONDS (unknown) (no (unknown) (unknown) Parainfluenza 1 (units (unknown) date) (PCR) (Not Detect) unknown) (unknown) (no (unknown) (unknown) Parainfluenza 1 (units (unknown) date) (PCR) Not detected unknown) (Not Detect) (unknown) (no (unknown) (unknown) Parainfluenza 2 (units (unknown) date) (PCR) (Not Detect) unknown) (unknown) (no (unknown) (unknown) Parainfluenza 2 (units (unknown) date) (PCR) Not detected unknown) (Not Detect) (unknown) (no (unknown) (unknown) Parainfluenza 3 (units (unknown) date) (PCR) (Not Detect) unknown) (unknown) (no (unknown) (unknown) Parainfluenza 3 (units (unknown) date) (PCR) Not detected unknown) (Not Detect) (unknown) (no (unknown) (unknown) Parainfluenza 4 (units (unknown) date) (PCR) (Not Detect) unknown) (unknown) (no (unknown) (unknown) Parainfluenza 4 (units (unknown) date) (PCR) Not detected unknown) (Not Detect) (unknown) (no (unknown) (unknown) Patient (units (unkno wn) date) Disposition: Home unknown) (unknown) (no (unknown) (unknown) Patient History (units (unknown) date) unknown) (unknown) (no (unknown) (unknown) Patient: (units (unkno wn) date) Verónica Joseph unknown) MR#: [id number] (unknown) (no (unknown) (unknown) Patient: (units (unkno wn) date) Verónica Joseph unknown) (unknown) (no (unknown) (unknown) Plt Count (units (unkn own) date) (150-400) X103/uL unknown) (unknown) (no (unknown) (unknown) Plt Count 179 (units ( unknown) date) (150-400) X103/uL unknown) (unknown) (no (unknown) (unknown) Potassium (units (unkn own) date) (3.4-5.1) mmol/L unknown) (unknown) (no (unknown) (unknown) Potassium 3.9 (units ( unknown) date) (3.4-5.1) mmol/L unknown) (unknown) (no (unknown) (unknown) Prescriptions: (units (unknown) date) unknown) (unknown) (no (unknown) (unknown) Previous Rx's (units ( unknown) date) unknown) (unknown) (no (unknown) (unknown) Procedure: XR (units ( unknown) date) chest 2V unknown) (unknown) (no (unknown) (unknown) Prothrombin Time (units (unknown) date) INR Stat unknown) (unknown) (no (unknown) (unknown) Pulse Oximetry 95 (units (unknown) date) 08/17/22 13:01 unknown) (unknown) (no (unknown) (unknown) Pulse Oximetry 95 (units (unknown) date) 96 98 unknown) (unknown) (no (unknown) (unknown) Pulse Rate 64 (units ( unknown) date) 08/17/22 13:01 unknown) (unknown) (no (unknown) (unknown) Pulse Rate 64 85 (units (unknown) date) 67 unknown) (unknown) (no (unknown) (unknown) RBC (4.0-5.2) (units ( unknown) date) X106/uL unknown) (unknown) (no (unknown) (unknown) RBC 3.89 L (units (unk nown) date) (4.0-5.2) X106/uL unknown) (unknown) (no (unknown) (unknown) RDW (11.6-14.8) % (units (unknown) date) unknown) (unknown) (no (unknown) (unknown) RDW 15.9 H (units (unk nown) date) (11.6-14.8) % unknown) (unknown) (no (unknown) (unknown) RESPIRATORY: Clear (units (unknown) date) to auscultation. unknown) Breath sounds equal bilaterally. No wheezes, (unknown) (no (unknown) (unknown) RSV (PCR) (Not (units (unknown) date) Detect) unknown) (unknown) (no (unknown) (unknown) RSV (PCR) Not (units ( unknown) date) detected (Not unknown) Detect) (unknown) (no (unknown) (unknown) RT Consult Eval (units (unknown) date) and Treat NOW unknown) (unknown) (no (unknown) (unknown) Radiologist's (units ( unknown) date) Impression: unknown) (unknown) (no (unknown) (unknown) Related Data (units (u nknown) date) unknown) (unknown) (no (unknown) (unknown) Respiratory Panel (units (unknown) date) (Film Array) Stat unknown) (unknown) (no (unknown) (unknown) Respiratory Rate (units (unknown) date) 18 08/17/22 13:01 unknown) (unknown) (no (unknown) (unknown) Respiratory Rate (units (unknown) date) 18 18 18 unknown) (unknown) (no (unknown) (unknown) Review of Systems (units (unknown) date) unknown) (unknown) (no (unknown) (unknown) SARS-CoV-2 (PCR) (units (unknown) date) (Not Detecte) unknown) (unknown) (no (unknown) (unknown) SARS-CoV-2 (PCR) (units (unknown) date) Not detected (Not unknown) Detecte) (unknown) (no (unknown) (unknown) SKIN: No rash or (units (unknown) date) erythema of unknown) visible areas (unknown) (no (unknown) (unknown) Scores (units (unkno wn) date) unknown) (unknown) (no (unknown) (unknown) Shared decision (units (unknown) date) making:: Shared unknown) decision-making was used in determining the (unknown) (no (unknown) (unknown) She denies (units (unk nown) date) fevers, chills, unknown) loss of appetite, abdominal pain, chest pain or any (unknown) (no (unknown) (unknown) Signed By: (units (unk nown) date) unknown) (unknown) (no (unknown) (unknown) Signed (units (unkno wn) date) unknown) (unknown) (no (unknown) (unknown) Smoking Status: (units (unknown) date) Never smoker unknown) (unknown) (no (unknown) (unknown) Social History (units (unknown) date) (Reviewed 08/17/22 unknown) @ 13:34 by Jeri Adam PA-C) (unknown) (no (unknown) (unknown) Sodium (137-145) (units (unknown) date) mmol/L unknown) (unknown) (no (unknown) (unknown) Sodium 133 L (units (u nknown) date) (137-145) mmol/L unknown) (unknown) (no (unknown) (unknown) Source: patient (units (unknown) date) unknown) (unknown) (no (unknown) (unknown) Stand Alone (units (un known) date) Forms: Patient unknown) Portal/API (unknown) (no (unknown) (unknown) Stated Complaint: (units (unknown) date) sent by jacky unknown) med, SOB (unknown) (no (unknown) (unknown) Stop: 08/17/22 (units (unknown) date) 16:10 unknown) (unknown) (no (unknown) (unknown) Substance Use (units ( unknown) date) Type: does not use unknown) (unknown) (no (unknown) (unknown) Sulfa (units (unkno wn) date) (Sulfonamide unknown) Allergy Unknown Verified 08/17/22 13:06 (unknown) (no (unknown) (unknown) Surgical changes (units (unknown) date) and devices:? unknown) None.? (unknown) (no (unknown) (unknown) T-wave lead V3 (units (unknown) date) otherwise unknown) unremarkable EKG with a no ectopy or ST changes noted (unknown) (no (unknown) (unknown) TECHNIQUE:? 2 (units ( unknown) date) views of the chest unknown) were acquired.? (unknown) (no (unknown) (unknown) Temperature 97.9 (units (unknown) date) F 08/17/22 13:01 unknown) (unknown) (no (unknown) (unknown) Temperature 97.9 (units (unknown) date) F unknown) (unknown) (no (unknown) (unknown) Tetracyclines (units ( unknown) date) [TETRACYCLINES] unknown) Allergy Unknown Verified 08/17/22 13:06 (unknown) (no (unknown) (unknown) Thank you for (units (u nknown) date) letting us be part unknown) of your care today in the emergency department. (unknown) (no (unknown) (unknown) This is a rather (units (unknown) date) well-appearing unknown) 82-year-old female who presents with concern for (unknown) (no (unknown) (unknown) Time Seen by (units (u nknown) date) Provider: 08/17/22 unknown) 13:19 (unknown) (no (unknown) (unknown) Total Bilirubin (units (unknown) date) (0.2-1.3) mg/dL unknown) (unknown) (no (unknown) (unknown) Total Bilirubin (units (unknown) date) 0.5 (0.2-1.3) unknown) mg/dL (unknown) (no (unknown) (unknown) Total Protein (units ( unknown) date) (6.3-8.2) g/dL unknown) (unknown) (no (unknown) (unknown) Total Protein 6.7 (units (unknown) date) (6.3-8.2) g/dL unknown) (unknown) (no (unknown) (unknown) Treatment and (units ( unknown) date) disposition unknown) (unknown) (no (unknown) (unknown) Troponin I < (units (u nknown) date) 0.012 (0.01-0.034) unknown) ng/mL (unknown) (no (unknown) (unknown) Troponin I (units (unk nown) date) (0.01-0.034) ng/mL unknown) (unknown) (no (unknown) (unknown) Troponin I Stat (units (unknown) date) unknown) (unknown) (no (unknown) (unknown) Unremarkable (units (u nknown) date) except as noted in unknown) the HPI (unknown) (no (unknown) (unknown) Vital Signs - 8 (units (unknown) date) hr unknown) (unknown) (no (unknown) (unknown) Vital Signs (units (un known) date) unknown) (unknown) (no (unknown) (unknown) Vital signs: (units (u nknown) date) unknown) (unknown) (no (unknown) (unknown) WBC (4.5-11.0) (units (unknown) date) X103/uL unknown) (unknown) (no (unknown) (unknown) WBC 8.3 (units (unkno wn) date) (4.5-11.0) X103/uL unknown) (unknown) (no (unknown) (unknown) XR chest 2V Stat (units (unknown) date) unknown) (unknown) (no (unknown) (unknown) XRay Report (units (un known) date) unknown) (unknown) (no (unknown) (unknown) Your viral panel (units (unknown) date) did come back unknown) positive for 1 of the common cold viruses it is (unknown) (no (unknown) (unknown) [Embedded Image (units (unknown) date) Not Available] unknown) (unknown) (no (unknown) (unknown) [SULFA (units (unkno wn) date) (SULFONAMIDE unknown) (unknown) (no (unknown) (unknown) a type of (units (unkn own) date) coronavirus but it unknown) is not COVID. This likely explains her symptoms. (unknown) (no (unknown) (unknown) after finding (units ( unknown) date) negative flu and unknown) COVID and an EKG that they felt was concerning (unknown) (no (unknown) (unknown) alcohol intake (units (unknown) date) frequency: 0-2 unknown) drinks per day (unknown) (no (unknown) (unknown) and sent her here (units (unknown) date) for further unknown) evaluation. (unknown) (no (unknown) (unknown) ankles or (units (unkn own) date) anywhere else. She unknown) states the cough has been bothersome as it is (unknown) (no (unknown) (unknown) any diagnosis of (units (unknown) date) COPD. Patient unknown) stated she did not want to take any steroid (unknown) (no (unknown) (unknown) appointment. (units (u nknown) date) Please return to unknown) the Emergency Department for any worsening or (unknown) (no (unknown) (unknown) be health. This (units (unknown) date) evaluation unknown) returned looking fine. Please follow-up closely (unknown) (no (unknown) (unknown) benzonatate 100 (units (unknown) date) mg capsule 100 mg unknown) PO TID PRN cough 7 days #21 08/17/22 (unknown) (no (unknown) (unknown) benzonatate 100 (units (unknown) date) mg capsule unknown) (unknown) (no (unknown) (unknown) caps (units (unkno wn) date) unknown) (unknown) (no (unknown) (unknown) changes are (units (un known) date) unknown) (unknown) (no (unknown) (unknown) changes noted on (units (unknown) date) her x-ray she does unknown) have a distant 13 year history but denied (unknown) (no (unknown) (unknown) cough and (units (unkn own) date) shortness of unknown) breath recently. This returns unremarkable and given (unknown) (no (unknown) (unknown) cough. Based on (units (unknown) date) labs and chest unknown) x-ray as well as exam, low suspicion for a (unknown) (no (unknown) (unknown) days repeat (units (un known) date) troponins are not unknown) obtained. Respiratory viral panel is obtained as (unknown) (no (unknown) (unknown) did a 12 lead (units ( unknown) date) that they thought unknown) was concerning due to some depression changes (unknown) (no (unknown) (unknown) discuss possibly (units (unknown) date) doing some steroid unknown) medicine given that you have a distant (unknown) (no (unknown) (unknown) discussed options (units (unknown) date) noting that her unknown) chest x-ray suggestive of chronic mild (unknown) (no (unknown) (unknown) disease, (units (unkno wn) date) community acquired unknown) pneumonia and other (Viral URI, CHF, [place]) (unknown) (no (unknown) (unknown) distress, (units (unkn own) date) well-appearing. 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 We also evaluated you for (unknown) (no (unknown) (unknown) for possible ST (units (unknown) date) depression. EKG unknown) today in the emergency department is (unknown) (no (unknown) (unknown) friend lozenges. (units (unknown) date) She endorses unknown) chronic intermittent loose stools which have been (unknown) (no (unknown) (unknown) going on 24 hours (units (unknown) date) a day she is been unknown) taking Mucinex and occasionally fisherman's (unknown) (no (unknown) (unknown) hesitate to seek (units (unknown) date) care if you feel unknown) you have new or worsening symptoms. There is (unknown) (no (unknown) (unknown) icterus. No (units (un known) date) injection or unknown) drainage. (unknown) (no (unknown) (unknown) is interested in (units (unknown) date) cough medicine. unknown) Labs are generally looking good however she (unknown) (no (unknown) (unknown) joint tenderness. (units (unknown) date) unknown) (unknown) (no (unknown) (unknown) medication, she (units (unknown) date) is interested in unknown) receiving cough medicine for her bothersome (unknown) (no (unknown) (unknown) mild swelling in (units (unknown) date) her feet but has unknown) not noticed any weight gain or swelling of her (unknown) (no (unknown) (unknown) no evidence of an (units (unknown) date) emergent or life unknown) threatening illness at this time, but follow (unknown) (no (unknown) (unknown) other symptoms. (units (unknown) date) Patient does state unknown) that she has a friend that recently tested (unknown) (no (unknown) (unknown) out serious (units (un known) date) underlying causes unknown) of your symptoms. Please call the office for an (unknown) (no (unknown) (unknown) outpatient (units (unk nown) date) follow-up and unknown) treatment (unknown) (no (unknown) (unknown) patient is (units (unk nown) date) anxious to know unknown) what could be causing her symptoms. Did discuss (unknown) (no (unknown) (unknown) patient's (units (unkn own) date) evaluation today unknown) in the emergency department and her plan for (unknown) (no (unknown) (unknown) penicillin G (units (u nknown) date) [PENICILLIN G] unknown) Allergy Unknown Verified 08/17/22 13:06 (unknown) (no (unknown) (unknown) persistent (units (unk nown) date) symptoms. Please unknown) take medications as directed. (unknown) (no (unknown) (unknown) pneumonia and do (units (unknown) date) not feel that unknown) antibiotics are warranted. (unknown) (no (unknown) (unknown) positive for (units (u nknown) date) COVID but unknown) otherwise has not had sick contacts. Pt states she went (unknown) (no (unknown) (unknown) possible heart (units ( unknown) date) problem given you unknown) were sent here with concern for this from would (unknown) (no (unknown) (unknown) presents with (units ( unknown) date) concern for unknown) fatigue, a cough and feeling somewhat short of breath (unknown) (no (unknown) (unknown) rales, or (units (unkn own) date) rhonchi. unknown) (unknown) (no (unknown) (unknown) seen.? No pleural (units (unknown) date) effusions or unknown) pneumothorax.? (unknown) (no (unknown) (unknown) smoking history (units (unknown) date) and your x-ray unknown) today was suggestive of some chronic (unknown) (no (unknown) (unknown) still has (units (unkn own) date) respiratory panel unknown) pending. (unknown) (no (unknown) (unknown) that she is not (units (unknown) date) had any chest pain unknown) and her symptoms have been persistent for 3-4 (unknown) (no (unknown) (unknown) to feel short of (units (unknown) date) breath with unknown) exertion, she does feel that she has maybe had some (unknown) (no (unknown) (unknown) to [facility] (units (unknown) date) and was seen there unknown) and had a negative COVID flu test but they (unknown) (no (unknown) (unknown) tonsillar (units (unkn own) date) hypertrophy or unknown) exudate. Airway patent. (unknown) (no (unknown) (unknown) unchanged for (units ( unknown) date) her. She states it unknown) is somewhat productive with mucus coming up. (unknown) (no (unknown) (unknown) unremarkable, (units ( unknown) date) cardiac workup is unknown) performed given the patient's age and report of (unknown) (no (unknown) (unknown) unremarkable.? (units (unknown) date) unknown) (unknown) (no (unknown) (unknown) up with your (units (u nknown) date) doctor in 1-2 days unknown) is recommended nonetheless to continue to rule (unknown) (no (unknown) (unknown) with exertion (units ( unknown) date) over the past 2 or unknown) 3 days. Patient states it is unusual for her (unknown) (no (unknown) (unknown) with her possibly (units (unknown) date) treating her with unknown) a course of steroids given emphysematous (unknown) (no (unknown) (unknown) with your primary (units (unknown) date) care provider and unknown) monitor for new or worsening symptoms do not Result panel 130 (unknown) (no (unknown) (unknown) (no value) (units (unk nown) date) unknown) (unknown) (no (unknown) (unknown) <Electronically (units (unknown) date) signed by Jeri unknown) Henri Adam> (unknown) (no (unknown) (unknown) [id number] (units (unkno wn) date) unknown) (unknown) (no (unknown) (unknown) 08/17/22 08/17/22 (units (unknown) date) 08/17/22 unknown) Range/Units (unknown) (no (unknown) (unknown) 08/17/22 08/17/22 (units (unknown) date) Range/Units unknown) (unknown) (no (unknown) (unknown) 08/17/22 13:06 (units (unknown) date) unknown) (unknown) (no (unknown) (unknown) 08/17/22 13:16 (units (unknown) date) unknown) (unknown) (no (unknown) (unknown) 08/17/22 13:20 (units (unknown) date) unknown) (unknown) (no (unknown) (unknown) 08/17/22 14:47 (units (unknown) date) unknown) (unknown) (no (unknown) (unknown) 08/17/22 2045 (units ( unknown) date) unknown) (unknown) (no (unknown) (unknown) 08/17/22 (units (unkno wn) date) unknown) (unknown) (no (unknown) (unknown) 100 mg PO TID PRN (units (unknown) date) (Reason: cough) 7 unknown) Days Qty: 21 1RF (unknown) (no (unknown) (unknown) [address] (units (unknown) date) unknown) (unknown) (no (unknown) (unknown) 13:01 08/17/22 (units (unknown) date) unknown) (unknown) (no (unknown) (unknown) 13:20 13:20 13:20 (units (unknown) date) unknown) (unknown) (no (unknown) (unknown) 13:20 14:47 (units (un known) date) unknown) (unknown) (no (unknown) (unknown) 1445 (units (unkno wn) date) unknown) (unknown) (no (unknown) (unknown) 15:19 08/17/22 (units (unknown) date) unknown) (unknown) (no (unknown) (unknown) 16:23 (units (unkno wn) date) unknown) (unknown) (no (unknown) (unknown) 3-4 days of (units (un known) date) persistent unknown) bothersome wet sounding cough sent by [employer] (unknown) (no (unknown) (unknown) 82-year-old (units (un known) date) female with a unknown) history of small-bowel obstruction with resection (unknown) (no (unknown) (unknown) ? (units (unkno wn) date) unknown) (unknown) (no (unknown) (unknown) ALT (<35) IU/L (units (unknown) date) unknown) (unknown) (no (unknown) (unknown) ALT 40 H (<35) (units (unknown) date) IU/L unknown) (unknown) (no (unknown) (unknown) ANTIBIOTICS)] (units ( unknown) date) unknown) (unknown) (no (unknown) (unknown) AST (14-36) IU/L (units (unknown) date) unknown) (unknown) (no (unknown) (unknown) AST 52 H (14-36) (units (unknown) date) IU/L unknown) (unknown) (no (unknown) (unknown) Accession Number: (units (unknown) date) [id number] ?? unknown) (unknown) (no (unknown) (unknown) Acct:[id number] (units (unknown) date) unknown) (unknown) (no (unknown) (unknown) Activity (units (unkno wn) date) Restrictions/Addit unknown) ional Instructions: (unknown) (no (unknown) (unknown) Adenovirus (PCR) (units (unknown) date) (Not Detect) unknown) (unknown) (no (unknown) (unknown) Adenovirus (PCR) (units (unknown) date) Not detected (Not unknown) Detect) (unknown) (no (unknown) (unknown) Age/Sex: 82 / F (units (unknown) date) unknown) (unknown) (no (unknown) (unknown) Albumin (3.5-5.0) (units (unknown) date) g/dL unknown) (unknown) (no (unknown) (unknown) Albumin 3.8 (units (un known) date) (3.5-5.0) g/dL unknown) (unknown) (no (unknown) (unknown) Albumin/Globulin (units (unknown) date) Ratio (1.0-2.8) unknown) (unknown) (no (unknown) (unknown) Albumin/Globulin (units (unknown) date) Ratio 1.3 unknown) (1.0-2.8) (unknown) (no (unknown) (unknown) Alkaline (units (unkno wn) date) Phosphatase unknown) (38-126) U/L (unknown) (no (unknown) (unknown) Alkaline (units (unkno wn) date) Phosphatase 58 unknown) (38-126) U/L (unknown) (no (unknown) (unknown) Allergies (units (unkn own) date) unknown) (unknown) (no (unknown) (unknown) Allergy/AdvReac (units (unknown) date) Type Severity unknown) Reaction Status Date / Time (unknown) (no (unknown) (unknown) [place] (units ( unknown) date) [id number] unknown) (unknown) (no (unknown) (unknown) Antibiotics) (units (u nknown) date) unknown) (unknown) (no (unknown) (unknown) Approved by: Adam Marcosunits (unknown) date) Ryley Ruby on unknown) 08/17/2022 at 13:17?? (unknown) (no (unknown) (unknown) Attestation: I (units (unknown) date) personally unknown) reviewed and interpreted this ECG as follows: (unknown) (no (unknown) (unknown) Attestation: I (units (unknown) date) reviewed the unknown) patient's lab results. (unknown) (no (unknown) (unknown) Attestation: I (units (unknown) date) reviewed the unknown) patient's medical records. (unknown) (no (unknown) (unknown) B. pertussis DNA (units (unknown) date) (PCR) (Not unknown) Detecte) (unknown) (no (unknown) (unknown) B. pertussis DNA (units (unknown) date) (PCR) Not detected unknown) (Not Detecte) (unknown) (no (unknown) (unknown) B.parapertussis (units (unknown) date) DNA PCR (Not unknown) Detecte) (unknown) (no (unknown) (unknown) B.parapertussis (units (unknown) date) DNA PCR Not unknown) detected (Not Detecte) (unknown) (no (unknown) (unknown) BACK: Nontender (units (unknown) date) without deformity unknown) or crepitance. No flank tenderness. (unknown) (no (unknown) (unknown) BUN (7-17) mg/dL (units (unknown) date) unknown) (unknown) (no (unknown) (unknown) BUN 16 (7-17) (units ( unknown) date) mg/dL unknown) (unknown) (no (unknown) (unknown) BUN/Creatinine (units (unknown) date) Ratio (6-22) unknown) (unknown) (no (unknown) (unknown) BUN/Creatinine (units (unknown) date) Ratio 43.2 H unknown) (6-22) (unknown) (no (unknown) (unknown) Baso # (Auto) (units ( unknown) date) (0-100) /uL unknown) (unknown) (no (unknown) (unknown) Baso # (Auto) 0 (units (unknown) date) (0-100) /uL unknown) (unknown) (no (unknown) (unknown) Baso % (Auto) (units ( unknown) date) (0-2) % unknown) (unknown) (no (unknown) (unknown) Baso % (Auto) 0.5 (units (unknown) date) (0-2) % unknown) (unknown) (no (unknown) (unknown) Benzonatate (units (un known) date) (Benzonatate 100 unknown) Mg Capsule) 100 mg PO NOW ONE (unknown) (no (unknown) (unknown) Blood Pressure (units (unknown) date) 163/73 H 08/17/22 unknown) 13:01 (unknown) (no (unknown) (unknown) Blood Pressure (units (unknown) date) 163/73 H 175/74 H unknown) 180/77 H (unknown) (no (unknown) (unknown) Bones and chest (units (unknown) date) wall:? No unknown) suspicious bony abnormalities.? Soft tissues appear (unknown) (no (unknown) (unknown) CARDIOVASCULAR: (units (unknown) date) Regular rate and unknown) rhythm without murmurs, gallops, or rubs. (unknown) (no (unknown) (unknown) COMPARISON:? (units (u nknown) date) None. unknown) (unknown) (no (unknown) (unknown) Calcium (units (unkno wn) date) (8.4-10.2) mg/dL unknown) (unknown) (no (unknown) (unknown) Calcium 9.0 (units (un known) date) (8.4-10.2) mg/dL unknown) (unknown) (no (unknown) (unknown) Carbon Dioxide (units (unknown) date) (22-32) mmol/L unknown) (unknown) (no (unknown) (unknown) Carbon Dioxide 26 (units (unknown) date) (22-32) mmol/L unknown) (unknown) (no (unknown) (unknown) Chest x-ray: (units (u nknown) date) unknown) (unknown) (no (unknown) (unknown) Chief Complaint: (units (unknown) date) Shortness of unknown) Breath/Dyspnea (unknown) (no (unknown) (unknown) Chlamy pneumoniae (units (unknown) date) PCR (Not Detect) unknown) (unknown) (no (unknown) (unknown) Chlamy pneumoniae (units (unknown) date) PCR Not detected unknown) (Not Detect) (unknown) (no (unknown) (unknown) Chloride (98-107) (units (unknown) date) mmol/L unknown) (unknown) (no (unknown) (unknown) Chloride 101 (units (u nknown) date) (98-107) mmol/L unknown) (unknown) (no (unknown) (unknown) Clinical (units (unkno wn) date) Impression: unknown) (unknown) (no (unknown) (unknown) Complete Blood (units (unknown) date) Count AUTO DIFF unknown) Stat (unknown) (no (unknown) (unknown) Comprehensive (units ( unknown) date) Metabolic Panel unknown) Stat (unknown) (no (unknown) (unknown) Coronavirus 229E (units (unknown) date) (PCR) (Not Detect) unknown) (unknown) (no (unknown) (unknown) Coronavirus 229E (units (unknown) date) (PCR) Not detected unknown) (Not Detect) (unknown) (no (unknown) (unknown) Coronavirus HKU1 (units (unknown) date) (PCR) (Not Detect) unknown) (unknown) (no (unknown) (unknown) Coronavirus HKU1 (units (unknown) date) (PCR) Not detected unknown) (Not Detect) (unknown) (no (unknown) (unknown) Coronavirus NL63 (units (unknown) date) (PCR) (Not Detect) unknown) (unknown) (no (unknown) (unknown) Coronavirus NL63 (units (unknown) date) (PCR) Not detected unknown) (Not Detect) (unknown) (no (unknown) (unknown) Coronavirus OC 43 (units (unknown) date) positive on unknown) respiratory panel (unknown) (no (unknown) (unknown) Coronavirus OC43 (units (unknown) date) (PCR) (Not Detect) unknown) (unknown) (no (unknown) (unknown) Coronavirus OC43 (units (unknown) date) (PCR) Detected H unknown) (Not Detect) (unknown) (no (unknown) (unknown) Coronavirus (units (un known) date) infection, Cough unknown) (unknown) (no (unknown) (unknown) Course Narrative: (units (unknown) date) unknown) (unknown) (no (unknown) (unknown) Course (units (unkno wn) date) unknown) (unknown) (no (unknown) (unknown) Creatinine (units (unk nown) date) (0.52-1.04) mg/dL unknown) (unknown) (no (unknown) (unknown) Creatinine 0.37 L (units (unknown) date) (0.52-1.04) mg/dL unknown) (unknown) (no (unknown) (unknown) : 1940 (units (unknown) date) Acct:[id number] unknown) (unknown) (no (unknown) (unknown) : 1940 (units (unknown) date) unknown) (unknown) (no (unknown) (unknown) Date of Service: (units (unknown) date) 08/17/22 unknown) (unknown) (no (unknown) (unknown) Departure (units (unkn own) date) unknown) (unknown) (no (unknown) (unknown) Dictated by: Adam (units (unknown) date) Ryley Ruby on unknown) 08/17/2022 at 13:17 ? ? (unknown) (no (unknown) (unknown) Did discuss the (units (unknown) date) results of labs unknown) thus far and the patient's EKG with her, (unknown) (no (unknown) (unknown) Differential (units (u nknown) date) Diagnosis unknown) (unknown) (no (unknown) (unknown) Differential (units (un known) date) diagnosis: Likely unknown) acute exacerbation of chronic obstructive airways (unknown) (no (unknown) (unknown) Discharge Plan (units (unknown) date) unknown) (unknown) (no (unknown) (unknown) Discontinued (units (u nknown) date) Medications unknown) (unknown) (no (unknown) (unknown) Documented By: CECY (units (unknown) date) unknown) (unknown) (no (unknown) (unknown) ECG Data (units (unkno wn) date) unknown) (unknown) (no (unknown) (unknown) ED Orders (units (unkn own) date) unknown) (unknown) (no (unknown) (unknown) EKG-12 Lead Stat (units (unknown) date) unknown) (unknown) (no (unknown) (unknown) ENT: Nose without (units (unknown) date) bleeding, purulent unknown) drainage. 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 No edema or (unknown) (no (unknown) (unknown) EYES: Pupils (units (u nknown) date) equal round and unknown) reactive. Extraocular motions intact. No scleral (unknown) (no (unknown) (unknown) Emergency Report (units (unknown) date) unknown) (unknown) (no (unknown) (unknown) Entero/Rhino (units (u nknown) date) (PCR) (Not Detect) unknown) (unknown) (no (unknown) (unknown) Entero/Rhino (units (u nknown) date) (PCR) Not detected unknown) (Not Detect) (unknown) (no (unknown) (unknown) Eos # (Auto) (units (u nknown) date) (0-450) /uL unknown) (unknown) (no (unknown) (unknown) Eos # (Auto) 100 (units (unknown) date) (0-450) /uL unknown) (unknown) (no (unknown) (unknown) Eos % (Auto) (units (u nknown) date) (2-4) % unknown) (unknown) (no (unknown) (unknown) Eos % (Auto) 1.1 (units (unknown) date) L (2-4) % unknown) (unknown) (no (unknown) (unknown) Estimated GFR > (units (unknown) date) 60 (>60) mL/min unknown) (unknown) (no (unknown) (unknown) Estimated GFR (units ( unknown) date) (>60) mL/min unknown) (unknown) (no (unknown) (unknown) Exam Narrative: (units (unknown) date) unknown) (unknown) (no (unknown) (unknown) Exam (units (unkno wn) date) unknown) (unknown) (no (unknown) (unknown) FINDINGS:? (units (unk nown) date) unknown) (unknown) (no (unknown) (unknown) GASTROINTESTINAL: (units (unknown) date) Abdomen soft, unknown) non-tender, nondistended. (unknown) (no (unknown) (unknown) GENERAL: 82 year (units (unknown) date) old patient unknown) appears stated age. Well-developed patient, in mild (unknown) (no (unknown) (unknown) General (units (unkno wn) date) unknown) (unknown) (no (unknown) (unknown) Globulin (units (unkno wn) date) (1.7-4.1) g/dL unknown) (unknown) (no (unknown) (unknown) Globulin 2.9 (units (u nknown) date) (1.7-4.1) g/dL unknown) (unknown) (no (unknown) (unknown) Glucose (80-110) (units (unknown) date) mg/dL unknown) (unknown) (no (unknown) (unknown) Glucose 115 H (units ( unknown) date) (80-110) mg/dL unknown) (unknown) (no (unknown) (unknown) HEAD: Atraumatic. (units (unknown) date) Normocephalic. unknown) (unknown) (no (unknown) (unknown) HEART Score (units (un known) date) unknown) (unknown) (no (unknown) (unknown) HPI - SOB/Dyspnea (units (unknown) date) unknown) (unknown) (no (unknown) (unknown) HPI Narrative: (units (unknown) date) unknown) (unknown) (no (unknown) (unknown) Hct (36-46) % (units ( unknown) date) unknown) (unknown) (no (unknown) (unknown) Hct 36.8 (36-46) (units (unknown) date) % unknown) (unknown) (no (unknown) (unknown) Heart Score Age: (units (unknown) date) > or = 65 years unknown) old (unknown) (no (unknown) (unknown) Heart Score EKG: (units (unknown) date) Normal unknown) (unknown) (no (unknown) (unknown) Heart Score (units (un known) date) Total: 2 unknown) (unknown) (no (unknown) (unknown) Heart Score (units (un known) date) history: Slightly unknown) Suspicious (unknown) (no (unknown) (unknown) Heart Score risk (units (unknown) date) factors: No known unknown) risk factors (unknown) (no (unknown) (unknown) Heart Score (units (un known) date) troponin: < or = unknown) to normal limit (unknown) (no (unknown) (unknown) Heart rate 61, (units (unknown) date) normal sinus unknown) rhythm, T-wave inversions in lead III, V1 biphasic (unknown) (no (unknown) (unknown) Hgb (12.0-16.0) (units (unknown) date) g/dL unknown) (unknown) (no (unknown) (unknown) Hgb 12.1 (units (unkno wn) date) (12.0-16.0) g/dL unknown) (unknown) (no (unknown) (unknown) History of (units (unk nown) date) Present Illness unknown) (unknown) (no (unknown) (unknown) Human (units (unkno wn) date) Metapneumovir PCR unknown) (Not Detect) (unknown) (no (unknown) (unknown) Human (units (unkno wn) date) Metapneumovir PCR unknown) Not detected (Not Detect) (unknown) (no (unknown) (unknown) I agree with (units (u nknown) date) radiologist's unknown) interpretation of the imaging (unknown) (no (unknown) (unknown) I did prescribed (units (unknown) date) some cough unknown) medicine for you which I hope is helpful. We did (unknown) (no (unknown) (unknown) IMPRESSION:? (units (u nknown) date) COPD.? No acute unknown) cardiopulmonary pathology. (unknown) (no (unknown) (unknown) INDICATIONS:? SOB (units (unknown) date) cough unknown) (unknown) (no (unknown) (unknown) INR (0.9-1.3) (units ( unknown) date) unknown) (unknown) (no (unknown) (unknown) INR 1.1 (0.9-1.3) (units (unknown) date) unknown) (unknown) (no (unknown) (unknown) Imaging Data (units (u nknown) date) unknown) (unknown) (no (unknown) (unknown) Influenza Type A (units (unknown) date) (PCR) (Not Detect) unknown) (unknown) (no (unknown) (unknown) Influenza Type A (units (unknown) date) (PCR) Not detected unknown) (Not Detect) (unknown) (no (unknown) (unknown) Influenza Type B (units (unknown) date) (PCR) (Not Detect) unknown) (unknown) (no (unknown) (unknown) Influenza Type B (units (unknown) date) (PCR) Not detected unknown) (Not Detect) (unknown) (no (unknown) (unknown) Initial Vital (units ( unknown) date) Signs unknown) (unknown) (no (unknown) (unknown) Initial Vital (units ( unknown) date) Signs: unknown) (unknown) (no (unknown) (unknown) Interpretation: (units (unknown) date) unknown) (unknown) (no (unknown) (unknown) [facility] (units (unknown) date) [address] unknown) [place] [address] (unknown) (no (unknown) (unknown) [facility] (units (unknown) date) unknown) (unknown) (no (unknown) (unknown) Lab Data (units (unkno wn) date) unknown) (unknown) (no (unknown) (unknown) Lab Results (units (un known) date) unknown) (unknown) (no (unknown) (unknown) Lab results (units (un known) date) narrative: unknown) (unknown) (no (unknown) (unknown) Labs: (units (unkno wn) date) unknown) (unknown) (no (unknown) (unknown) Lactate (0.7-2.1) (units (unknown) date) mmol/L unknown) (unknown) (no (unknown) (unknown) Lactate (Lactic (units (unknown) date) Acid) Stat unknown) (unknown) (no (unknown) (unknown) Lactate 1.1 (units (un known) date) (0.7-2.1) mmol/L unknown) (unknown) (no (unknown) (unknown) Last Admin: (units (un known) date) 08/17/22 16:20 unknown) Dose: 100 mg (unknown) (no (unknown) (unknown) Loc: ED (units (unkno wn) date) unknown) (unknown) (no (unknown) (unknown) Lungs and (units (unkn own) date) pleura:? Lungs are unknown) clear.? Hyperinflation and chronic emphysematous (unknown) (no (unknown) (unknown) Lymph # (Auto) (units (unknown) date) (1624-1389) /uL unknown) (unknown) (no (unknown) (unknown) Lymph # (Auto) (units (unknown) date) 700 L (7758-0485) unknown) /uL (unknown) (no (unknown) (unknown) Lymph % (Auto) (units (unknown) date) (25-40) % unknown) (unknown) (no (unknown) (unknown) Lymph % (Auto) (units (unknown) date) 8.6 L (25-40) % unknown) (unknown) (no (unknown) (unknown) M. pneumoniae (units ( unknown) date) (PCR) (Not Detect) unknown) (unknown) (no (unknown) (unknown) M. pneumoniae (units ( unknown) date) (PCR) Not detected unknown) (Not Detect) (unknown) (no (unknown) (unknown) MCH (26-34) PG (units (unknown) date) unknown) (unknown) (no (unknown) (unknown) MCH 31.1 (26-34) (units (unknown) date) PG unknown) (unknown) (no (unknown) (unknown) MCHC (30-36) % (units (unknown) date) unknown) (unknown) (no (unknown) (unknown) MCHC 32.8 (30-36) (units (unknown) date) % unknown) (unknown) (no (unknown) (unknown) MCV (80-100) fL (units (unknown) date) unknown) (unknown) (no (unknown) (unknown) MCV 94.7 (80-100) (units (unknown) date) fL unknown) (unknown) (no (unknown) (unknown) MDM - SOB/Dyspnea (units (unknown) date) unknown) (unknown) (no (unknown) (unknown) MDM Narrative (units ( unknown) date) unknown) (unknown) (no (unknown) (unknown) MR#: [id number] (units (unknown) date) unknown) (unknown) (no (unknown) (unknown) Measure peak (units (u nknown) date) expiratory flow unknown) ONCE (unknown) (no (unknown) (unknown) Mediastinum:? (units ( unknown) date) Mediastinal unknown) contours are normal.? Heart size is normal.? (unknown) (no (unknown) (unknown) Medical Records (units (unknown) date) unknown) (unknown) (no (unknown) (unknown) Medical decision (units (unknown) date) making narrative: unknown) (unknown) (no (unknown) (unknown) Medication (units (unk nown) date) Instructions unknown) Recorded (unknown) (no (unknown) (unknown) Mode of arrival: (units (unknown) date) Ambulatory unknown) (unknown) (no (unknown) (unknown) [place] # (Auto) (units ( unknown) date) (0-900) /uL unknown) (unknown) (no (unknown) (unknown) [place] # (Auto) 500 (units (unknown) date) (0-900) /uL unknown) (unknown) (no (unknown) (unknown) [place] % (Auto) (units ( unknown) date) (3-14) % unknown) (unknown) (no (unknown) (unknown) [place] % (Auto) 5.9 (units (unknown) date) (3-14) % unknown) (unknown) (no (unknown) (unknown) My Impression: (units (unknown) date) unknown) (unknown) (no (unknown) (unknown) NECK: [place] (units ( unknown) date) midline. Non unknown) tender (unknown) (no (unknown) (unknown) NEURO: AOx3. (units (u nknown) date) unknown) (unknown) (no (unknown) (unknown) NT-Pro-B (units (unkno wn) date) Natriuret Pep unknown) (<450) pg/mL (unknown) (no (unknown) (unknown) NT-Pro-B (units (unkno wn) date) Natriuret Pep 359 unknown) (<450) pg/mL (unknown) (no (unknown) (unknown) NT-proBNP (units (unkn own) date) (BNP-Adult 18+) unknown) Stat (unknown) (no (unknown) (unknown) Narrative (units (unkn own) date) unknown) (unknown) (no (unknown) (unknown) Narrative: (units (unk nown) date) unknown) (unknown) (no (unknown) (unknown) Neut # (Auto) (units ( unknown) date) (5597-4308) /uL unknown) (unknown) (no (unknown) (unknown) Neut # (Auto) (units ( unknown) date) 6900 (9437-5221) unknown) /uL (unknown) (no (unknown) (unknown) Neut % (Auto) (units ( unknown) date) (50-75) % unknown) (unknown) (no (unknown) (unknown) Neut % (Auto) (units ( unknown) date) 83.9 H (50-75) % unknown) (unknown) (no (unknown) (unknown) New (units (unkno wn) date) unknown) (unknown) (no (unknown) (unknown) Ordered: (units (unkno wn) date) unknown) (unknown) (no (unknown) (unknown) Ordering (units (unkno wn) date) Provider: unknown) Jeri Adam P.A-C (unknown) (no (unknown) (unknown) Orders (units (unkno wn) date) unknown) (unknown) (no (unknown) (unknown) Oxygen Delivery (units (unknown) date) Method Room Air unknown) 08/17/22 13:01 (unknown) (no (unknown) (unknown) Oxygen Delivery (units (unknown) date) Method Room Air unknown) Room Air Room Air (unknown) (no (unknown) (unknown) PROCEDURE:? XR (units (unknown) date) CHEST 2V unknown) (unknown) (no (unknown) (unknown) PT (10.1-12.7) (units (unknown) date) SECONDS unknown) (unknown) (no (unknown) (unknown) PT 13.1 H (units (unkn own) date) (10.1-12.7) unknown) SECONDS (unknown) (no (unknown) (unknown) Parainfluenza 1 (units (unknown) date) (PCR) (Not Detect) unknown) (unknown) (no (unknown) (unknown) Parainfluenza 1 (units (unknown) date) (PCR) Not detected unknown) (Not Detect) (unknown) (no (unknown) (unknown) Parainfluenza 2 (units (unknown) date) (PCR) (Not Detect) unknown) (unknown) (no (unknown) (unknown) Parainfluenza 2 (units (unknown) date) (PCR) Not detected unknown) (Not Detect) (unknown) (no (unknown) (unknown) Parainfluenza 3 (units (unknown) date) (PCR) (Not Detect) unknown) (unknown) (no (unknown) (unknown) Parainfluenza 3 (units (unknown) date) (PCR) Not detected unknown) (Not Detect) (unknown) (no (unknown) (unknown) Parainfluenza 4 (units (unknown) date) (PCR) (Not Detect) unknown) (unknown) (no (unknown) (unknown) Parainfluenza 4 (units (unknown) date) (PCR) Not detected unknown) (Not Detect) (unknown) (no (unknown) (unknown) Patient (units (unkno wn) date) Disposition: Home unknown) (unknown) (no (unknown) (unknown) Patient History (units (unknown) date) unknown) (unknown) (no (unknown) (unknown) Patient: (units (unkno wn) date) Verónica Joseph unknown) MR#: [id number] (unknown) (no (unknown) (unknown) Patient: (units (unkno wn) date) Verónica Joseph unknown) (unknown) (no (unknown) (unknown) Plt Count (units (unkn own) date) (150-400) X103/uL unknown) (unknown) (no (unknown) (unknown) Plt Count 179 (units ( unknown) date) (150-400) X103/uL unknown) (unknown) (no (unknown) (unknown) Potassium (units (unkn own) date) (3.4-5.1) mmol/L unknown) (unknown) (no (unknown) (unknown) Potassium 3.9 (units ( unknown) date) (3.4-5.1) mmol/L unknown) (unknown) (no (unknown) (unknown) Prescriptions: (units (unknown) date) unknown) (unknown) (no (unknown) (unknown) Previous Rx's (units ( unknown) date) unknown) (unknown) (no (unknown) (unknown) Procedure: XR (units ( unknown) date) chest 2V unknown) (unknown) (no (unknown) (unknown) Prothrombin Time (units (unknown) date) INR Stat unknown) (unknown) (no (unknown) (unknown) Pulse Oximetry 95 (units (unknown) date) 08/17/22 13:01 unknown) (unknown) (no (unknown) (unknown) Pulse Oximetry 95 (units (unknown) date) 96 98 unknown) (unknown) (no (unknown) (unknown) Pulse Rate 64 (units ( unknown) date) 08/17/22 13:01 unknown) (unknown) (no (unknown) (unknown) Pulse Rate 64 85 (units (unknown) date) 67 unknown) (unknown) (no (unknown) (unknown) RBC (4.0-5.2) (units ( unknown) date) X106/uL unknown) (unknown) (no (unknown) (unknown) RBC 3.89 L (units (unk nown) date) (4.0-5.2) X106/uL unknown) (unknown) (no (unknown) (unknown) RDW (11.6-14.8) % (units (unknown) date) unknown) (unknown) (no (unknown) (unknown) RDW 15.9 H (units (unk nown) date) (11.6-14.8) % unknown) (unknown) (no (unknown) (unknown) RESPIRATORY: Clear (units (unknown) date) to auscultation. unknown) Breath sounds equal bilaterally. No wheezes, (unknown) (no (unknown) (unknown) RSV (PCR) (Not (units (unknown) date) Detect) unknown) (unknown) (no (unknown) (unknown) RSV (PCR) Not (units ( unknown) date) detected (Not unknown) Detect) (unknown) (no (unknown) (unknown) RT Consult Eval (units (unknown) date) and Treat NOW unknown) (unknown) (no (unknown) (unknown) Radiologist's (units ( unknown) date) Impression: unknown) (unknown) (no (unknown) (unknown) Related Data (units (u nknown) date) unknown) (unknown) (no (unknown) (unknown) Respiratory Panel (units (unknown) date) (Film Array) Stat unknown) (unknown) (no (unknown) (unknown) Respiratory Rate (units (unknown) date) 18 08/17/22 13:01 unknown) (unknown) (no (unknown) (unknown) Respiratory Rate (units (unknown) date) 18 18 18 unknown) (unknown) (no (unknown) (unknown) Review of Systems (units (unknown) date) unknown) (unknown) (no (unknown) (unknown) SARS-CoV-2 (PCR) (units (unknown) date) (Not Detecte) unknown) (unknown) (no (unknown) (unknown) SARS-CoV-2 (PCR) (units (unknown) date) Not detected (Not unknown) Detecte) (unknown) (no (unknown) (unknown) SKIN: No rash or (units (unknown) date) erythema of unknown) visible areas (unknown) (no (unknown) (unknown) Scores (units (unkno wn) date) unknown) (unknown) (no (unknown) (unknown) Shared decision (units (unknown) date) making:: Shared unknown) decision-making was used in determining the (unknown) (no (unknown) (unknown) She denies (units (unk nown) date) fevers, chills, unknown) loss of appetite, abdominal pain, chest pain or any (unknown) (no (unknown) (unknown) Signed By: (units (unk nown) date) unknown) (unknown) (no (unknown) (unknown) Signed (units (unkno wn) date) unknown) (unknown) (no (unknown) (unknown) Smoking Status: (units (unknown) date) Never smoker unknown) (unknown) (no (unknown) (unknown) Social History (units (unknown) date) (Reviewed 08/17/22 unknown) @ 13:34 by Jeri Adam PA-C) (unknown) (no (unknown) (unknown) Sodium (137-145) (units (unknown) date) mmol/L unknown) (unknown) (no (unknown) (unknown) Sodium 133 L (units (u nknown) date) (137-145) mmol/L unknown) (unknown) (no (unknown) (unknown) Source: patient (units (unknown) date) unknown) (unknown) (no (unknown) (unknown) Stand Alone (units (un known) date) Forms: Patient unknown) Portal/API (unknown) (no (unknown) (unknown) Stated Complaint: (units (unknown) date) sent by kathiebey unknown) med, SOB (unknown) (no (unknown) (unknown) Stop: 08/17/22 (units (unknown) date) 16:10 unknown) (unknown) (no (unknown) (unknown) Substance Use (units ( unknown) date) Type: does not use unknown) (unknown) (no (unknown) (unknown) Sulfa (units (unkno wn) date) (Sulfonamide unknown) Allergy Unknown Verified 08/17/22 13:06 (unknown) (no (unknown) (unknown) Surgical changes (units (unknown) date) and devices:? unknown) None.? (unknown) (no (unknown) (unknown) T-wave lead V3 (units (unknown) date) otherwise unknown) unremarkable EKG with a no ectopy or ST changes noted (unknown) (no (unknown) (unknown) TECHNIQUE:? 2 (units ( unknown) date) views of the chest unknown) were acquired.? (unknown) (no (unknown) (unknown) Temperature 97.9 (units (unknown) date) F 08/17/22 13:01 unknown) (unknown) (no (unknown) (unknown) Temperature 97.9 (units (unknown) date) F unknown) (unknown) (no (unknown) (unknown) Tetracyclines (units ( unknown) date) [TETRACYCLINES] unknown) Allergy Unknown Verified 08/17/22 13:06 (unknown) (no (unknown) (unknown) Thank you for (units (u nknown) date) letting us be part unknown) of your care today in the emergency department. (unknown) (no (unknown) (unknown) This is a rather (units (unknown) date) well-appearing unknown) 82-year-old female who presents with concern for (unknown) (no (unknown) (unknown) Time Seen by (units (u nknown) date) Provider: 08/17/22 unknown) 13:19 (unknown) (no (unknown) (unknown) Total Bilirubin (units (unknown) date) (0.2-1.3) mg/dL unknown) (unknown) (no (unknown) (unknown) Total Bilirubin (units (unknown) date) 0.5 (0.2-1.3) unknown) mg/dL (unknown) (no (unknown) (unknown) Total Protein (units ( unknown) date) (6.3-8.2) g/dL unknown) (unknown) (no (unknown) (unknown) Total Protein 6.7 (units (unknown) date) (6.3-8.2) g/dL unknown) (unknown) (no (unknown) (unknown) Treatment and (units ( unknown) date) disposition unknown) (unknown) (no (unknown) (unknown) Troponin I < (units (u nknown) date) 0.012 (0.01-0.034) unknown) ng/mL (unknown) (no (unknown) (unknown) Troponin I (units (unk nown) date) (0.01-0.034) ng/mL unknown) (unknown) (no (unknown) (unknown) Troponin I Stat (units (unknown) date) unknown) (unknown) (no (unknown) (unknown) Unremarkable (units (u nknown) date) except as noted in unknown) the HPI (unknown) (no (unknown) (unknown) Vital Signs - 8 (units (unknown) date) hr unknown) (unknown) (no (unknown) (unknown) Vital Signs (units (un known) date) unknown) (unknown) (no (unknown) (unknown) Vital signs: (units (u nknown) date) unknown) (unknown) (no (unknown) (unknown) WBC (4.5-11.0) (units (unknown) date) X103/uL unknown) (unknown) (no (unknown) (unknown) WBC 8.3 (units (unkno wn) date) (4.5-11.0) X103/uL unknown) (unknown) (no (unknown) (unknown) XR chest 2V Stat (units (unknown) date) unknown) (unknown) (no (unknown) (unknown) XRay Report (units (un known) date) unknown) (unknown) (no (unknown) (unknown) Your viral panel (units (unknown) date) did come back unknown) positive for 1 of the common cold viruses it is (unknown) (no (unknown) (unknown) [Embedded Image (units (unknown) date) Not Available] unknown) (unknown) (no (unknown) (unknown) [SULFA (units (unkno wn) date) (SULFONAMIDE unknown) (unknown) (no (unknown) (unknown) a distant 13 year (units (unknown) date) history of smoking unknown) but denied any diagnosis of COPD. Patient (unknown) (no (unknown) (unknown) a type of (units (unkn own) date) coronavirus but it unknown) is not COVID. This likely explains her symptoms. (unknown) (no (unknown) (unknown) after finding (units ( unknown) date) negative flu and unknown) COVID and an EKG that they felt was concerning (unknown) (no (unknown) (unknown) age and report of (units (unknown) date) cough and unknown) shortness of breath recently. This returns (unknown) (no (unknown) (unknown) alcohol intake (units (unknown) date) frequency: 0-2 unknown) drinks per day (unknown) (no (unknown) (unknown) and sent her here (units (unknown) date) for further unknown) evaluation. (unknown) (no (unknown) (unknown) ankles or (units (unkn own) date) anywhere else. She unknown) states the cough has been bothersome as it is (unknown) (no (unknown) (unknown) antibiotics are (units (unknown) date) warranted. unknown) Patient's respiratory panel did come back positive (unknown) (no (unknown) (unknown) appointment. (units (u nknown) date) Please return to unknown) the Emergency Department for any worsening or (unknown) (no (unknown) (unknown) be health. This (units (unknown) date) evaluation unknown) returned looking fine. Please follow-up closely (unknown) (no (unknown) (unknown) been persistent (units (unknown) date) for 3-4 days unknown) repeat troponins are not obtained. Respiratory (unknown) (no (unknown) (unknown) benzonatate 100 (units (unknown) date) mg capsule 100 mg unknown) PO TID PRN cough 7 days #21 08/17/22 (unknown) (no (unknown) (unknown) benzonatate 100 (units (unknown) date) mg capsule unknown) (unknown) (no (unknown) (unknown) caps (units (unkno wn) date) unknown) (unknown) (no (unknown) (unknown) changes are (units (un known) date) unknown) (unknown) (no (unknown) (unknown) course of (units (unkn own) date) steroids given unknown) emphysematous changes noted on her x-ray she does have (unknown) (no (unknown) (unknown) did a 12 lead (units ( unknown) date) that they thought unknown) was concerning due to some depression changes (unknown) (no (unknown) (unknown) discuss possibly (units (unknown) date) doing some steroid unknown) medicine given that you have a distant (unknown) (no (unknown) (unknown) discussed options (units (unknown) date) noting that her unknown) chest x-ray suggestive of chronic mild (unknown) (no (unknown) (unknown) disease, (units (unkno wn) date) community acquired unknown) pneumonia and other (Viral URI, CHF, [place]) (unknown) (no (unknown) (unknown) distress, (units (unkn own) date) well-appearing. 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 We also evaluated you for (unknown) (no (unknown) (unknown) for coronavirus (units (unknown) date) OC 43, which unknown) likely explains her symptoms. Patient is (unknown) (no (unknown) (unknown) for possible ST (units (unknown) date) depression. EKG unknown) today in the emergency department is (unknown) (no (unknown) (unknown) friend lan. (units (unknown) date) She endorses unknown) chronic intermittent loose stools which have been (unknown) (no (unknown) (unknown) going on 24 hours (units (unknown) date) a day she is been unknown) taking Mucinex and occasionally fisherman's (unknown) (no (unknown) (unknown) hesitate to seek (units (unknown) date) care if you feel unknown) you have new or worsening symptoms. There is (unknown) (no (unknown) (unknown) icterus. No (units (un known) date) injection or unknown) drainage. (unknown) (no (unknown) (unknown) is interested in (units (unknown) date) cough medicine. unknown) Labs are generally looking good however she (unknown) (no (unknown) (unknown) joint tenderness. (units (unknown) date) unknown) (unknown) (no (unknown) (unknown) mild swelling in (units (unknown) date) her feet but has unknown) not noticed any weight gain or swelling of her (unknown) (no (unknown) (unknown) no evidence of an (units (unknown) date) emergent or life unknown) threatening illness at this time, but follow (unknown) (no (unknown) (unknown) other symptoms. (units (unknown) date) Patient does state unknown) that she has a friend that recently tested (unknown) (no (unknown) (unknown) out serious (units (un known) date) underlying causes unknown) of your symptoms. Please call the office for an (unknown) (no (unknown) (unknown) outpatient (units (unk nown) date) follow-up and unknown) treatment (unknown) (no (unknown) (unknown) patient's (units (unkn own) date) evaluation today unknown) in the emergency department and her plan for (unknown) (no (unknown) (unknown) penicillin G (units (u nknown) date) [PENICILLIN G] unknown) Allergy Unknown Verified 08/17/22 13:06 (unknown) (no (unknown) (unknown) persistent (units (unk nown) date) symptoms. Please unknown) take medications as directed. (unknown) (no (unknown) (unknown) positive for (units (u nknown) date) COVID but unknown) otherwise has not had sick contacts. Pt states she went (unknown) (no (unknown) (unknown) possible heart (units ( unknown) date) problem given you unknown) were sent here with concern for this from would (unknown) (no (unknown) (unknown) precautions (units (un known) date) provided, unknown) follow-up plan discussed, all questions answered. (unknown) (no (unknown) (unknown) prescribed (units (unk nown) date) benzonatate unknown) advised to follow up closely with primary care, return (unknown) (no (unknown) (unknown) presents with (units ( unknown) date) concern for unknown) fatigue, a cough and feeling somewhat short of breath (unknown) (no (unknown) (unknown) rales, or (units (unkn own) date) rhonchi. unknown) (unknown) (no (unknown) (unknown) ray as well as (units (unknown) date) exam, low unknown) suspicion for a pneumonia and do not feel that (unknown) (no (unknown) (unknown) receiving cough (units (unknown) date) medicine for her unknown) bothersome cough. Based on labs and chest x (unknown) (no (unknown) (unknown) seen.? No pleural (units (unknown) date) effusions or unknown) pneumothorax.? (unknown) (no (unknown) (unknown) smoking history (units (unknown) date) and your x-ray unknown) today was suggestive of some chronic (unknown) (no (unknown) (unknown) stated she did (units (unknown) date) not want to take unknown) any steroid medication, she is interested in (unknown) (no (unknown) (unknown) still has (units (unkn own) date) respiratory panel unknown) pending. (unknown) (no (unknown) (unknown) to feel short of (units (unknown) date) breath with unknown) exertion, she does feel that she has maybe had some (unknown) (no (unknown) (unknown) to [email or web address] (units (unknown) date) and was seen there unknown) and had a negative COVID flu test but they (unknown) (no (unknown) (unknown) tonsillar (units (unkn own) date) hypertrophy or unknown) exudate. Airway patent. (unknown) (no (unknown) (unknown) unchanged for (units ( unknown) date) her. She states it unknown) is somewhat productive with mucus coming up. (unknown) (no (unknown) (unknown) unremarkable and (units (unknown) date) given that she is unknown) not had any chest pain and her symptoms have (unknown) (no (unknown) (unknown) unremarkable, (units (u nknown) date) cardiac workup unknown) labs including BNP is performed given the patient's (unknown) (no (unknown) (unknown) unremarkable.? (units (unknown) date) unknown) (unknown) (no (unknown) (unknown) up with your (units (u nknown) date) doctor in 1-2 days unknown) is recommended nonetheless to continue to rule (unknown) (no (unknown) (unknown) viral panel is (units (unknown) date) obtained. Did unknown) discuss with her possibly treating her with a (unknown) (no (unknown) (unknown) with exertion (units ( unknown) date) over the past 2 or unknown) 3 days. Patient states it is unusual for her (unknown) (no (unknown) (unknown) with your primary (units (unknown) date) care provider and unknown) monitor for new or worsening symptoms do not Result panel 131 (unknown) (no (unknown) (unknown) (no value) (units (unk nown) date) unknown) (unknown) (no (unknown) (unknown) <Electronically (units (unknown) date) signed by Jeri unknown) Henri Adam> (unknown) (no (unknown) (unknown) <Electronically (units (unknown) date) signed by Patrice unknown) Vandana Altamirano> (unknown) (no (unknown) (unknown) <Electronically (units (unknown) date) signed by Patrice unknown) Adarsh Ross> (unknown) (no (unknown) (unknown) <Jeri (units (unkn own) date) AGATA Adam - unknown) Last Filed: 08/17/22 20:45> (unknown) (no (unknown) (unknown) <Patrice Ross, (units (unknown) date) - Last Filed: unknown) 08/21/22 19:40> (unknown) (no (unknown) (unknown) <duaneigner> (units (unk nown) date) unknown) (unknown) (no (unknown) (unknown) [id number] (units (unkno wn) date) unknown) (unknown) (no (unknown) (unknown) 03/22/23 03/22/23 (units (unknown) date) 08/17/22 unknown) Range/Units (unknown) (no (unknown) (unknown) 08/17/22 08/17/22 (units (unknown) date) Range/Units unknown) (unknown) (no (unknown) (unknown) 08/17/22 13:20 (units (unknown) date) unknown) (unknown) (no (unknown) (unknown) 08/17/22 2045 (units ( unknown) date) unknown) (unknown) (no (unknown) (unknown) 08/17/22 (units (unkno wn) date) unknown) (unknown) (no (unknown) (unknown) 08/21/22 1940 (units ( unknown) date) unknown) (unknown) (no (unknown) (unknown) 100 mg PO TID PRN (units (unknown) date) (Reason: cough) 7 unknown) Days Qty: 21 1RF (unknown) (no (unknown) (unknown) [address] [place] [address] (units (unknown) date) unknown) (unknown) (no (unknown) (unknown) 13:01 08/17/22 (units (unknown) date) unknown) (unknown) (no (unknown) (unknown) 13:20 13:20 13:20 (units (unknown) date) unknown) (unknown) (no (unknown) (unknown) 13:20 14:47 (units (un known) date) unknown) (unknown) (no (unknown) (unknown) 1445 (units (unkno wn) date) unknown) (unknown) (no (unknown) (unknown) 15:19 08/17/22 (units (unknown) date) unknown) (unknown) (no (unknown) (unknown) 16:23 (units (unkno wn) date) unknown) (unknown) (no (unknown) (unknown) 3-4 days of (units (un known) date) persistent unknown) bothersome wet sounding cough sent by [employer] (unknown) (no (unknown) (unknown) 82-year-old (units (un known) date) female with a unknown) history of small-bowel obstruction with resection (unknown) (no (unknown) (unknown) ? (units (unkno wn) date) unknown) (unknown) (no (unknown) (unknown) ALT (<35) IU/L (units (unknown) date) unknown) (unknown) (no (unknown) (unknown) ALT 40 H (<35) (units (unknown) date) IU/L unknown) (unknown) (no (unknown) (unknown) ANTIBIOTICS)] (units ( unknown) date) unknown) (unknown) (no (unknown) (unknown) AST (14-36) IU/L (units (unknown) date) unknown) (unknown) (no (unknown) (unknown) AST 52 H (14-36) (units (unknown) date) IU/L unknown) (unknown) (no (unknown) (unknown) Accession Number: (units (unknown) date) [id number] ?? unknown) (unknown) (no (unknown) (unknown) Acct:[id number] (units (unknown) date) unknown) (unknown) (no (unknown) (unknown) Activity (units (unkno wn) date) Restrictions/Addit unknown) ional Instructions: (unknown) (no (unknown) (unknown) Adenovirus (PCR) (units (unknown) date) (Not Detect) unknown) (unknown) (no (unknown) (unknown) Adenovirus (PCR) (units (unknown) date) Not detected (Not unknown) Detect) (unknown) (no (unknown) (unknown) Age/Sex: 82 / F (units (unknown) date) unknown) (unknown) (no (unknown) (unknown) Albumin (3.5-5.0) (units (unknown) date) g/dL unknown) (unknown) (no (unknown) (unknown) Albumin 3.8 (units (un known) date) (3.5-5.0) g/dL unknown) (unknown) (no (unknown) (unknown) Albumin/Globulin (units (unknown) date) Ratio (1.0-2.8) unknown) (unknown) (no (unknown) (unknown) Albumin/Globulin (units (unknown) date) Ratio 1.3 unknown) (1.0-2.8) (unknown) (no (unknown) (unknown) Alkaline (units (unkno wn) date) Phosphatase unknown) (38-126) U/L (unknown) (no (unknown) (unknown) Alkaline (units (unkno wn) date) Phosphatase 58 unknown) (38-126) U/L (unknown) (no (unknown) (unknown) Allergies (units (unkn own) date) unknown) (unknown) (no (unknown) (unknown) Allergy/AdvReac (units (unknown) date) Type Severity unknown) Reaction Status Date / Time (unknown) (no (unknown) (unknown) [place], [place] (units ( unknown) date) [address] unknown) (unknown) (no (unknown) (unknown) Antibiotics) (units (u nknown) date) unknown) (unknown) (no (unknown) (unknown) Approved by: Adam Marcosunits (unknown) date) Ryley Ruby on unknown) 08/17/2022 at 13:17?? (unknown) (no (unknown) (unknown) Attestation: I (units (unknown) date) personally unknown) reviewed and interpreted this ECG as follows: (unknown) (no (unknown) (unknown) Attestation: I (units (unknown) date) reviewed the unknown) patient's lab results. (unknown) (no (unknown) (unknown) Attestation: I (units (unknown) date) reviewed the unknown) patient's medical records. (unknown) (no (unknown) (unknown) B. pertussis DNA (units (unknown) date) (PCR) (Not unknown) Detecte) (unknown) (no (unknown) (unknown) B. pertussis DNA (units (unknown) date) (PCR) Not detected unknown) (Not Detecte) (unknown) (no (unknown) (unknown) B.parapertussis (units (unknown) date) DNA PCR (Not unknown) Detecte) (unknown) (no (unknown) (unknown) B.parapertussis (units (unknown) date) DNA PCR Not unknown) detected (Not Detecte) (unknown) (no (unknown) (unknown) BACK: Nontender (units (unknown) date) without deformity unknown) or crepitance. No flank tenderness. (unknown) (no (unknown) (unknown) BUN (7-17) mg/dL (units (unknown) date) unknown) (unknown) (no (unknown) (unknown) BUN 16 (7-17) (units ( unknown) date) mg/dL unknown) (unknown) (no (unknown) (unknown) BUN/Creatinine (units (unknown) date) Ratio (6-22) unknown) (unknown) (no (unknown) (unknown) BUN/Creatinine (units (unknown) date) Ratio 43.2 H unknown) (6-22) (unknown) (no (unknown) (unknown) Baso # (Auto) (units ( unknown) date) (0-100) /uL unknown) (unknown) (no (unknown) (unknown) Baso # (Auto) 0 (units (unknown) date) (0-100) /uL unknown) (unknown) (no (unknown) (unknown) Baso % (Auto) (units ( unknown) date) (0-2) % unknown) (unknown) (no (unknown) (unknown) Baso % (Auto) 0.5 (units (unknown) date) (0-2) % unknown) (unknown) (no (unknown) (unknown) Benzonatate (units (un known) date) (Benzonatate 100 unknown) Mg Capsule) 100 mg PO NOW ONE (unknown) (no (unknown) (unknown) Blood Pressure (units (unknown) date) 163/73 H 03/ unknown) 13:01 (unknown) (no (unknown) (unknown) Blood Pressure (units (unknown) date) 163/73 H 175/74 H unknown) 180/77 H (unknown) (no (unknown) (unknown) Bones and chest (units (unknown) date) wall:? No unknown) suspicious bony abnormalities.? Soft tissues appear (unknown) (no (unknown) (unknown) CARDIOVASCULAR: (units (unknown) date) Regular rate and unknown) rhythm without murmurs, gallops, or rubs. (unknown) (no (unknown) (unknown) COMPARISON:? (units (u nknown) date) None. unknown) (unknown) (no (unknown) (unknown) Calcium (units (unkno wn) date) (8.4-10.2) mg/dL unknown) (unknown) (no (unknown) (unknown) Calcium 9.0 (units (un known) date) (8.4-10.2) mg/dL unknown) (unknown) (no (unknown) (unknown) Carbon Dioxide (units (unknown) date) (22-32) mmol/L unknown) (unknown) (no (unknown) (unknown) Carbon Dioxide 26 (units (unknown) date) (22-32) mmol/L unknown) (unknown) (no (unknown) (unknown) Chest x-ray: (units (u nknown) date) unknown) (unknown) (no (unknown) (unknown) Chief Complaint: (units (unknown) date) Shortness of unknown) Breath/Dyspnea (unknown) (no (unknown) (unknown) Chlamy pneumoniae (units (unknown) date) PCR (Not Detect) unknown) (unknown) (no (unknown) (unknown) Chlamy pneumoniae (units (unknown) date) PCR Not detected unknown) (Not Detect) (unknown) (no (unknown) (unknown) Chloride (98-107) (units (unknown) date) mmol/L unknown) (unknown) (no (unknown) (unknown) Chloride 101 (units (u nknown) date) (98-107) mmol/L unknown) (unknown) (no (unknown) (unknown) Clinical (units (unkno wn) date) Impression: unknown) (unknown) (no (unknown) (unknown) Coronavirus 229E (units (unknown) date) (PCR) (Not Detect) unknown) (unknown) (no (unknown) (unknown) Coronavirus 229E (units (unknown) date) (PCR) Not detected unknown) (Not Detect) (unknown) (no (unknown) (unknown) Coronavirus HKU1 (units (unknown) date) (PCR) (Not Detect) unknown) (unknown) (no (unknown) (unknown) Coronavirus HKU1 (units (unknown) date) (PCR) Not detected unknown) (Not Detect) (unknown) (no (unknown) (unknown) Coronavirus NL63 (units (unknown) date) (PCR) (Not Detect) unknown) (unknown) (no (unknown) (unknown) Coronavirus NL63 (units (unknown) date) (PCR) Not detected unknown) (Not Detect) (unknown) (no (unknown) (unknown) Coronavirus OC 43 (units (unknown) date) positive on unknown) respiratory panel (unknown) (no (unknown) (unknown) Coronavirus OC43 (units (unknown) date) (PCR) (Not Detect) unknown) (unknown) (no (unknown) (unknown) Coronavirus OC43 (units (unknown) date) (PCR) Detected H unknown) (Not Detect) (unknown) (no (unknown) (unknown) Coronavirus (units (un known) date) infection, Cough unknown) (unknown) (no (unknown) (unknown) Cosign (units (unkno wn) date) unknown) (unknown) (no (unknown) (unknown) Course Narrative: (units (unknown) date) unknown) (unknown) (no (unknown) (unknown) Course (units (unkno wn) date) unknown) (unknown) (no (unknown) (unknown) Creatinine (units (unk nown) date) (0.52-1.04) mg/dL unknown) (unknown) (no (unknown) (unknown) Creatinine 0.37 L (units (unknown) date) (0.52-1.04) mg/dL unknown) (unknown) (no (unknown) (unknown) : 1940 (units (unknown) date) Acct:[id number] unknown) (unknown) (no (unknown) (unknown) : 1940 (units (unknown) date) unknown) (unknown) (no (unknown) (unknown) Date of Service: (units (unknown) date) 08/17/22 unknown) (unknown) (no (unknown) (unknown) Departure (units (unkn own) date) unknown) (unknown) (no (unknown) (unknown) Dictated by: Adam (units (unknown) date) Ryley Ruby on unknown) 08/17/2022 at 13:17 ? ? (unknown) (no (unknown) (unknown) Did discuss the (units (unknown) date) results of labs unknown) thus far and the patient's EKG with her, (unknown) (no (unknown) (unknown) Differential (units (u nknown) date) Diagnosis unknown) (unknown) (no (unknown) (unknown) Differential (units (un known) date) diagnosis: Likely unknown) acute exacerbation of chronic obstructive airways (unknown) (no (unknown) (unknown) Discharge Plan (units (unknown) date) unknown) (unknown) (no (unknown) (unknown) Discontinued (units (u nknown) date) Medications unknown) (unknown) (no (unknown) (unknown) Documented By: CECY (units (unknown) date) unknown) (unknown) (no (unknown) (unknown) Dr Ross Co-Sign (units (unknown) date) Statement: I was unknown) available for consultation during this (unknown) (no (unknown) (unknown) ECG Data (units (unkno wn) date) unknown) (unknown) (no (unknown) (unknown) ED Attending (units (u nknown) date) Cosignature unknown) Attestation: (unknown) (no (unknown) (unknown) ENT: Nose without (units (unknown) date) bleeding, purulent unknown) drainage. 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 No edema or (unknown) (no (unknown) (unknown) EYES: Pupils (units (u nknown) date) equal round and unknown) reactive. Extraocular motions intact. No scleral (unknown) (no (unknown) (unknown) Emergency Report (units (unknown) date) unknown) (unknown) (no (unknown) (unknown) Entero/Rhino (units (u nknown) date) (PCR) (Not Detect) unknown) (unknown) (no (unknown) (unknown) Entero/Rhino (units (u nknown) date) (PCR) Not detected unknown) (Not Detect) (unknown) (no (unknown) (unknown) Eos # (Auto) (units (u nknown) date) (0-450) /uL unknown) (unknown) (no (unknown) (unknown) Eos # (Auto) 100 (units (unknown) date) (0-450) /uL unknown) (unknown) (no (unknown) (unknown) Eos % (Auto) (units (u nknown) date) (2-4) % unknown) (unknown) (no (unknown) (unknown) Eos % (Auto) 1.1 (units (unknown) date) L (2-4) % unknown) (unknown) (no (unknown) (unknown) Estimated GFR > (units (unknown) date) 60 (>60) mL/min unknown) (unknown) (no (unknown) (unknown) Estimated GFR (units ( unknown) date) (>60) mL/min unknown) (unknown) (no (unknown) (unknown) Exam Narrative: (units (unknown) date) unknown) (unknown) (no (unknown) (unknown) Exam (units (unkno wn) date) unknown) (unknown) (no (unknown) (unknown) FINDINGS:? (units (unk nown) date) unknown) (unknown) (no (unknown) (unknown) GASTROINTESTINAL: (units (unknown) date) Abdomen soft, unknown) non-tender, nondistended. (unknown) (no (unknown) (unknown) GENERAL: 82 year (units (unknown) date) old patient unknown) appears stated age. Well-developed patient, in mild (unknown) (no (unknown) (unknown) General (units (unkno wn) date) unknown) (unknown) (no (unknown) (unknown) Globulin (units (unkno wn) date) (1.7-4.1) g/dL unknown) (unknown) (no (unknown) (unknown) Globulin 2.9 (units (u nknown) date) (1.7-4.1) g/dL unknown) (unknown) (no (unknown) (unknown) Glucose (80-110) (units (unknown) date) mg/dL unknown) (unknown) (no (unknown) (unknown) Glucose 115 H (units ( unknown) date) (80-110) mg/dL unknown) (unknown) (no (unknown) (unknown) HEAD: Atraumatic. (units (unknown) date) Normocephalic. unknown) (unknown) (no (unknown) (unknown) HEART Score (units (un known) date) unknown) (unknown) (no (unknown) (unknown) HPI - SOB/Dyspnea (units (unknown) date) unknown) (unknown) (no (unknown) (unknown) HPI Narrative: (units (unknown) date) unknown) (unknown) (no (unknown) (unknown) Hct (36-46) % (units ( unknown) date) unknown) (unknown) (no (unknown) (unknown) Hct 36.8 (36-46) (units (unknown) date) % unknown) (unknown) (no (unknown) (unknown) Heart Score Age: (units (unknown) date) > or = 65 years unknown) old (unknown) (no (unknown) (unknown) Heart Score EKG: (units (unknown) date) Normal unknown) (unknown) (no (unknown) (unknown) Heart Score (units (un known) date) Total: 2 unknown) (unknown) (no (unknown) (unknown) Heart Score (units (un known) date) history: Slightly unknown) Suspicious (unknown) (no (unknown) (unknown) Heart Score risk (units (unknown) date) factors: No known unknown) risk factors (unknown) (no (unknown) (unknown) Heart Score (units (un known) date) troponin: < or = unknown) to normal limit (unknown) (no (unknown) (unknown) Heart rate 61, (units (unknown) date) normal sinus unknown) rhythm, T-wave inversions in lead III, V1 biphasic (unknown) (no (unknown) (unknown) Hgb (12.0-16.0) (units (unknown) date) g/dL unknown) (unknown) (no (unknown) (unknown) Hgb 12.1 (units (unkno wn) date) (12.0-16.0) g/dL unknown) (unknown) (no (unknown) (unknown) History of (units (unk nown) date) Present Illness unknown) (unknown) (no (unknown) (unknown) Human (units (unkno wn) date) Metapneumovir PCR unknown) (Not Detect) (unknown) (no (unknown) (unknown) Human (units (unkno wn) date) Metapneumovir PCR unknown) Not detected (Not Detect) (unknown) (no (unknown) (unknown) I agree with (units (u nknown) date) radiologist's unknown) interpretation of the imaging (unknown) (no (unknown) (unknown) I did prescribed (units (unknown) date) some cough unknown) medicine for you which I hope is helpful. We did (unknown) (no (unknown) (unknown) IMPRESSION:? (units (u nknown) date) COPD.? No acute unknown) cardiopulmonary pathology. (unknown) (no (unknown) (unknown) INDICATIONS:? SOB (units (unknown) date) cough unknown) (unknown) (no (unknown) (unknown) INR (0.9-1.3) (units ( unknown) date) unknown) (unknown) (no (unknown) (unknown) INR 1.1 (0.9-1.3) (units (unknown) date) unknown) (unknown) (no (unknown) (unknown) Imaging Data (units (u nknown) date) unknown) (unknown) (no (unknown) (unknown) Influenza Type A (units (unknown) date) (PCR) (Not Detect) unknown) (unknown) (no (unknown) (unknown) Influenza Type A (units (unknown) date) (PCR) Not detected unknown) (Not Detect) (unknown) (no (unknown) (unknown) Influenza Type B (units (unknown) date) (PCR) (Not Detect) unknown) (unknown) (no (unknown) (unknown) Influenza Type B (units (unknown) date) (PCR) Not detected unknown) (Not Detect) (unknown) (no (unknown) (unknown) Initial Vital (units ( unknown) date) Signs unknown) (unknown) (no (unknown) (unknown) Initial Vital (units ( unknown) date) Signs: unknown) (unknown) (no (unknown) (unknown) Interpretation: (units (unknown) date) unknown) (unknown) (no (unknown) (unknown) [facility] (units (unknown) date) [address] unknown) [place] [address] (unknown) (no (unknown) (unknown) [facility] (units (unknown) date) unknown) (unknown) (no (unknown) (unknown) Lab Data (units (unkno wn) date) unknown) (unknown) (no (unknown) (unknown) Lab Results (units (un known) date) unknown) (unknown) (no (unknown) (unknown) Lab results (units (un known) date) narrative: unknown) (unknown) (no (unknown) (unknown) Labs: (units (unkno wn) date) unknown) (unknown) (no (unknown) (unknown) Lactate (0.7-2.1) (units (unknown) date) mmol/L unknown) (unknown) (no (unknown) (unknown) Lactate 1.1 (units (un known) date) (0.7-2.1) mmol/L unknown) (unknown) (no (unknown) (unknown) Last Admin: (units (un known) date) 08/17/22 16:20 unknown) Dose: 100 mg (unknown) (no (unknown) (unknown) Loc: ED (units (unkno wn) date) unknown) (unknown) (no (unknown) (unknown) Lungs and (units (unkn own) date) pleura:? Lungs are unknown) clear.? Hyperinflation and chronic emphysematous (unknown) (no (unknown) (unknown) Lymph # (Auto) (units (unknown) date) (0616-4829) /uL unknown) (unknown) (no (unknown) (unknown) Lymph # (Auto) (units (unknown) date) 700 L (7145-3338) unknown) /uL (unknown) (no (unknown) (unknown) Lymph % (Auto) (units (unknown) date) (25-40) % unknown) (unknown) (no (unknown) (unknown) Lymph % (Auto) (units (unknown) date) 8.6 L (25-40) % unknown) (unknown) (no (unknown) (unknown) M. pneumoniae (units ( unknown) date) (PCR) (Not Detect) unknown) (unknown) (no (unknown) (unknown) M. pneumoniae (units ( unknown) date) (PCR) Not detected unknown) (Not Detect) (unknown) (no (unknown) (unknown) MCH (26-34) PG (units (unknown) date) unknown) (unknown) (no (unknown) (unknown) MCH 31.1 (26-34) (units (unknown) date) PG unknown) (unknown) (no (unknown) (unknown) MCHC (30-36) % (units (unknown) date) unknown) (unknown) (no (unknown) (unknown) MCHC 32.8 (30-36) (units (unknown) date) % unknown) (unknown) (no (unknown) (unknown) MCV (80-100) fL (units (unknown) date) unknown) (unknown) (no (unknown) (unknown) MCV 94.7 (80-100) (units (unknown) date) fL unknown) (unknown) (no (unknown) (unknown) MDM - SOB/Dyspnea (units (unknown) date) unknown) (unknown) (no (unknown) (unknown) MDM Narrative (units ( unknown) date) unknown) (unknown) (no (unknown) (unknown) MR#: [id number] (units (unknown) date) unknown) (unknown) (no (unknown) (unknown) Mediastinum:? (units ( unknown) date) Mediastinal unknown) contours are normal.? Heart size is normal.? (unknown) (no (unknown) (unknown) Medical Records (units (unknown) date) unknown) (unknown) (no (unknown) (unknown) Medical decision (units (unknown) date) making narrative: unknown) (unknown) (no (unknown) (unknown) Medication (units (unk nown) date) Instructions unknown) Recorded (unknown) (no (unknown) (unknown) Mode of arrival: (units (unknown) date) Ambulatory unknown) (unknown) (no (unknown) (unknown) [place] # (Auto) (units ( unknown) date) (0-900) /uL unknown) (unknown) (no (unknown) (unknown) [place] # (Auto) 500 (units (unknown) date) (0-900) /uL unknown) (unknown) (no (unknown) (unknown) [place] % (Auto) (units ( unknown) date) (3-14) % unknown) (unknown) (no (unknown) (unknown) [place] % (Auto) 5.9 (units (unknown) date) (3-14) % unknown) (unknown) (no (unknown) (unknown) My Impression: (units (unknown) date) unknown) (unknown) (no (unknown) (unknown) NECK: [place] (units ( unknown) date) midline. Non unknown) tender (unknown) (no (unknown) (unknown) NEURO: AOx3. (units (u nknown) date) unknown) (unknown) (no (unknown) (unknown) NT-Pro-B (units (unkno wn) date) Natriuret Pep unknown) (<450) pg/mL (unknown) (no (unknown) (unknown) NT-Pro-B (units (unkno wn) date) Natriuret Pep 359 unknown) (<450) pg/mL (unknown) (no (unknown) (unknown) Narrative (units (unkn own) date) unknown) (unknown) (no (unknown) (unknown) Narrative: (units (unk nown) date) unknown) (unknown) (no (unknown) (unknown) Neut # (Auto) (units ( unknown) date) (6153-0022) /uL unknown) (unknown) (no (unknown) (unknown) Neut # (Auto) (units ( unknown) date) 6900 (1584-6624) unknown) /uL (unknown) (no (unknown) (unknown) Neut % (Auto) (units ( unknown) date) (50-75) % unknown) (unknown) (no (unknown) (unknown) Neut % (Auto) (units ( unknown) date) 83.9 H (50-75) % unknown) (unknown) (no (unknown) (unknown) New (units (unkno wn) date) unknown) (unknown) (no (unknown) (unknown) Ordered: (units (unkno wn) date) unknown) (unknown) (no (unknown) (unknown) Ordering (units (unkno wn) date) Provider: unknown) Jeri Adam P.A-C (unknown) (no (unknown) (unknown) Orders (units (unkno wn) date) unknown) (unknown) (no (unknown) (unknown) Oxygen Delivery (units (unknown) date) Method Room Air unknown) 08/17/22 13:01 (unknown) (no (unknown) (unknown) Oxygen Delivery (units (unknown) date) Method Room Air unknown) Room Air Room Air (unknown) (no (unknown) (unknown) PROCEDURE:? XR (units (unknown) date) CHEST 2V unknown) (unknown) (no (unknown) (unknown) PT (10.1-12.7) (units (unknown) date) SECONDS unknown) (unknown) (no (unknown) (unknown) PT 13.1 H (units (unkn own) date) (10.1-12.7) unknown) SECONDS (unknown) (no (unknown) (unknown) Parainfluenza 1 (units (unknown) date) (PCR) (Not Detect) unknown) (unknown) (no (unknown) (unknown) Parainfluenza 1 (units (unknown) date) (PCR) Not detected unknown) (Not Detect) (unknown) (no (unknown) (unknown) Parainfluenza 2 (units (unknown) date) (PCR) (Not Detect) unknown) (unknown) (no (unknown) (unknown) Parainfluenza 2 (units (unknown) date) (PCR) Not detected unknown) (Not Detect) (unknown) (no (unknown) (unknown) Parainfluenza 3 (units (unknown) date) (PCR) (Not Detect) unknown) (unknown) (no (unknown) (unknown) Parainfluenza 3 (units (unknown) date) (PCR) Not detected unknown) (Not Detect) (unknown) (no (unknown) (unknown) Parainfluenza 4 (units (unknown) date) (PCR) (Not Detect) unknown) (unknown) (no (unknown) (unknown) Parainfluenza 4 (units (unknown) date) (PCR) Not detected unknown) (Not Detect) (unknown) (no (unknown) (unknown) Patient (units (unkno wn) date) Disposition: Home unknown) (unknown) (no (unknown) (unknown) Patient History (units (unknown) date) unknown) (unknown) (no (unknown) (unknown) Patient: (units (unkno wn) date) Verónica Joseph unknown) MR#: [id number] (unknown) (no (unknown) (unknown) Patient: (units (unkno wn) date) Verónica Joseph unknown) (unknown) (no (unknown) (unknown) Plt Count (units (unkn own) date) (150-400) X103/uL unknown) (unknown) (no (unknown) (unknown) Plt Count 179 (units ( unknown) date) (150-400) X103/uL unknown) (unknown) (no (unknown) (unknown) Potassium (units (unkn own) date) (3.4-5.1) mmol/L unknown) (unknown) (no (unknown) (unknown) Potassium 3.9 (units ( unknown) date) (3.4-5.1) mmol/L unknown) (unknown) (no (unknown) (unknown) Prescriptions: (units (unknown) date) unknown) (unknown) (no (unknown) (unknown) Previous Rx's (units ( unknown) date) unknown) (unknown) (no (unknown) (unknown) Procedure: XR (units ( unknown) date) chest 2V unknown) (unknown) (no (unknown) (unknown) Pulse Oximetry 95 (units (unknown) date) 08/17/22 13:01 unknown) (unknown) (no (unknown) (unknown) Pulse Oximetry 95 (units (unknown) date) 96 98 unknown) (unknown) (no (unknown) (unknown) Pulse Rate 64 (units ( unknown) date) 08/17/22 13:01 unknown) (unknown) (no (unknown) (unknown) Pulse Rate 64 85 (units (unknown) date) 67 unknown) (unknown) (no (unknown) (unknown) RBC (4.0-5.2) (units ( unknown) date) X106/uL unknown) (unknown) (no (unknown) (unknown) RBC 3.89 L (units (unk nown) date) (4.0-5.2) X106/uL unknown) (unknown) (no (unknown) (unknown) RDW (11.6-14.8) % (units (unknown) date) unknown) (unknown) (no (unknown) (unknown) RDW 15.9 H (units (unk nown) date) (11.6-14.8) % unknown) (unknown) (no (unknown) (unknown) RESPIRATORY: Clear (units (unknown) date) to auscultation. unknown) Breath sounds equal bilaterally. No wheezes, (unknown) (no (unknown) (unknown) RSV (PCR) (Not (units (unknown) date) Detect) unknown) (unknown) (no (unknown) (unknown) RSV (PCR) Not (units ( unknown) date) detected (Not unknown) Detect) (unknown) (no (unknown) (unknown) Radiologist's (units ( unknown) date) Impression: unknown) (unknown) (no (unknown) (unknown) Related Data (units (u nknown) date) unknown) (unknown) (no (unknown) (unknown) Respiratory Rate (units (unknown) date) 18 08/17/22 13:01 unknown) (unknown) (no (unknown) (unknown) Respiratory Rate (units (unknown) date) 18 18 18 unknown) (unknown) (no (unknown) (unknown) Review of Systems (units (unknown) date) unknown) (unknown) (no (unknown) (unknown) SARS-CoV-2 (PCR) (units (unknown) date) (Not Detecte) unknown) (unknown) (no (unknown) (unknown) SARS-CoV-2 (PCR) (units (unknown) date) Not detected (Not unknown) Detecte) (unknown) (no (unknown) (unknown) SKIN: No rash or (units (unknown) date) erythema of unknown) visible areas (unknown) (no (unknown) (unknown) Scores (units (unkno wn) date) unknown) (unknown) (no (unknown) (unknown) Shared decision (units (unknown) date) making:: Shared unknown) decision-making was used in determining the (unknown) (no (unknown) (unknown) She denies (units (unk nown) date) fevers, chills, unknown) loss of appetite, abdominal pain, chest pain or any (unknown) (no (unknown) (unknown) Signed By: (units (unk nown) date) unknown) (unknown) (no (unknown) (unknown) Signed (units (unkno wn) date) unknown) (unknown) (no (unknown) (unknown) Smoking Status: (units (unknown) date) Never smoker unknown) (unknown) (no (unknown) (unknown) Social History (units (unknown) date) (Reviewed 08/17/22 unknown) @ 13:34 by Jeri Adam PA-C) (unknown) (no (unknown) (unknown) Sodium (137-145) (units (unknown) date) mmol/L unknown) (unknown) (no (unknown) (unknown) Sodium 133 L (units (u nknown) date) (137-145) mmol/L unknown) (unknown) (no (unknown) (unknown) Source: patient (units (unknown) date) unknown) (unknown) (no (unknown) (unknown) Stand Alone (units (un known) date) Forms: Patient unknown) Portal/API (unknown) (no (unknown) (unknown) Stated Complaint: (units (unknown) date) sent by jacky unknown) med, SOB (unknown) (no (unknown) (unknown) Stop: 08/17/22 (units (unknown) date) 16:10 unknown) (unknown) (no (unknown) (unknown) Substance Use (units ( unknown) date) Type: does not use unknown) (unknown) (no (unknown) (unknown) Sulfa (units (unkno wn) date) (Sulfonamide unknown) Allergy Unknown Verified 08/17/22 13:06 (unknown) (no (unknown) (unknown) Surgical changes (units (unknown) date) and devices:? unknown) None.? (unknown) (no (unknown) (unknown) T-wave lead V3 (units (unknown) date) otherwise unknown) unremarkable EKG with a no ectopy or ST changes noted (unknown) (no (unknown) (unknown) TECHNIQUE:? 2 (units ( unknown) date) views of the chest unknown) were acquired.? (unknown) (no (unknown) (unknown) Temperature 97.9 (units (unknown) date) F 08/17/22 13:01 unknown) (unknown) (no (unknown) (unknown) Temperature 97.9 (units (unknown) date) F unknown) (unknown) (no (unknown) (unknown) Tetracyclines (units ( unknown) date) [TETRACYCLINES] unknown) Allergy Unknown Verified 08/17/22 13:06 (unknown) (no (unknown) (unknown) Thank you for (units (u nknown) date) letting us be part unknown) of your care today in the emergency department. (unknown) (no (unknown) (unknown) This is a rather (units (unknown) date) well-appearing unknown) 82-year-old female who presents with concern for (unknown) (no (unknown) (unknown) Time Seen by (units (u nknown) date) Provider: 08/17/22 unknown) 13:19 (unknown) (no (unknown) (unknown) Total Bilirubin (units (unknown) date) (0.2-1.3) mg/dL unknown) (unknown) (no (unknown) (unknown) Total Bilirubin (units (unknown) date) 0.5 (0.2-1.3) unknown) mg/dL (unknown) (no (unknown) (unknown) Total Protein (units ( unknown) date) (6.3-8.2) g/dL unknown) (unknown) (no (unknown) (unknown) Total Protein 6.7 (units (unknown) date) (6.3-8.2) g/dL unknown) (unknown) (no (unknown) (unknown) Treatment and (units ( unknown) date) disposition unknown) (unknown) (no (unknown) (unknown) Troponin I < (units (u nknown) date) 0.012 (0.01-0.034) unknown) ng/mL (unknown) (no (unknown) (unknown) Troponin I (units (unk nown) date) (0.01-0.034) ng/mL unknown) (unknown) (no (unknown) (unknown) Unremarkable (units (u nknown) date) except as noted in unknown) the HPI (unknown) (no (unknown) (unknown) Vital Signs - 8 (units (unknown) date) hr unknown) (unknown) (no (unknown) (unknown) Vital Signs (units (un known) date) unknown) (unknown) (no (unknown) (unknown) Vital signs: (units (u nknown) date) unknown) (unknown) (no (unknown) (unknown) WBC (4.5-11.0) (units (unknown) date) X103/uL unknown) (unknown) (no (unknown) (unknown) WBC 8.3 (units (unkno wn) date) (4.5-11.0) X103/uL unknown) (unknown) (no (unknown) (unknown) XRay Report (units (un known) date) unknown) (unknown) (no (unknown) (unknown) Your viral panel (units (unknown) date) did come back unknown) positive for 1 of the common cold viruses it is (unknown) (no (unknown) (unknown) [Embedded Image (units (unknown) date) Not Available] unknown) (unknown) (no (unknown) (unknown) [SULFA (units (unkno wn) date) (SULFONAMIDE unknown) (unknown) (no (unknown) (unknown) a distant 13 year (units (unknown) date) history of smoking unknown) but denied any diagnosis of COPD. Patient (unknown) (no (unknown) (unknown) a type of (units (unkn own) date) coronavirus but it unknown) is not COVID. This likely explains her symptoms. (unknown) (no (unknown) (unknown) administrative (units (unknown) date) purposes only. I unknown) did not have direct contact with this patient (unknown) (no (unknown) (unknown) after finding (units ( unknown) date) negative flu and unknown) COVID and an EKG that they felt was concerning (unknown) (no (unknown) (unknown) age and report of (units (unknown) date) cough and unknown) shortness of breath recently. This returns (unknown) (no (unknown) (unknown) alcohol intake (units (unknown) date) frequency: 0-2 unknown) drinks per day (unknown) (no (unknown) (unknown) and sent her here (units (unknown) date) for further unknown) evaluation. (unknown) (no (unknown) (unknown) ankles or (units (unkn own) date) anywhere else. She unknown) states the cough has been bothersome as it is (unknown) (no (unknown) (unknown) antibiotics are (units (unknown) date) warranted. unknown) Patient's respiratory panel did come back positive (unknown) (no (unknown) (unknown) appointment. (units (u nknown) date) Please return to unknown) the Emergency Department for any worsening or (unknown) (no (unknown) (unknown) be health. This (units (unknown) date) evaluation unknown) returned looking fine. Please follow-up closely (unknown) (no (unknown) (unknown) been persistent (units (unknown) date) for 3-4 days unknown) repeat troponins are not obtained. Respiratory (unknown) (no (unknown) (unknown) benzonatate 100 (units (unknown) date) mg capsule 100 mg unknown) PO TID PRN cough 7 days #21 08/17/22 (unknown) (no (unknown) (unknown) benzonatate 100 (units (unknown) date) mg capsule unknown) (unknown) (no (unknown) (unknown) caps (units (unkno wn) date) unknown) (unknown) (no (unknown) (unknown) changes are (units (un known) date) unknown) (unknown) (no (unknown) (unknown) course of (units (unkn own) date) steroids given unknown) emphysematous changes noted on her x-ray she does have (unknown) (no (unknown) (unknown) did a 12 lead (units ( unknown) date) that they thought unknown) was concerning due to some depression changes (unknown) (no (unknown) (unknown) discuss possibly (units (unknown) date) doing some steroid unknown) medicine given that you have a distant (unknown) (no (unknown) (unknown) discussed options (units (unknown) date) noting that her unknown) chest x-ray suggestive of chronic mild (unknown) (no (unknown) (unknown) disease, (units (unkno wn) date) community acquired unknown) pneumonia and other (Viral URI, CHF, [place]) (unknown) (no (unknown) (unknown) distress, (units (unkn own) date) well-appearing. unknown) (unknown) (no (unknown) (unknown) during this (units (un known) date) visit. They were unknown) seen independently by the [facility]. 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 We also evaluated you for (unknown) (no (unknown) (unknown) for coronavirus (units (unknown) date) OC 43, which unknown) likely explains her symptoms. Patient is (unknown) (no (unknown) (unknown) for possible ST (units (unknown) date) depression. EKG unknown) today in the emergency department is (unknown) (no (unknown) (unknown) friend harshages. (units (unknown) date) She endorses unknown) chronic intermittent loose stools which have been (unknown) (no (unknown) (unknown) going on 24 hours (units (unknown) date) a day she is been unknown) taking Mucinex and occasionally fisherman's (unknown) (no (unknown) (unknown) hesitate to seek (units (unknown) date) care if you feel unknown) you have new or worsening symptoms. There is (unknown) (no (unknown) (unknown) icterus. No (units (un known) date) injection or unknown) drainage. (unknown) (no (unknown) (unknown) is interested in (units (unknown) date) cough medicine. unknown) Labs are generally looking good however she (unknown) (no (unknown) (unknown) joint tenderness. (units (unknown) date) unknown) (unknown) (no (unknown) (unknown) mild swelling in (units (unknown) date) her feet but has unknown) not noticed any weight gain or swelling of her (unknown) (no (unknown) (unknown) no evidence of an (units (unknown) date) emergent or life unknown) threatening illness at this time, but follow (unknown) (no (unknown) (unknown) other symptoms. (units (unknown) date) Patient does state unknown) that she has a friend that recently tested (unknown) (no (unknown) (unknown) out serious (units (un known) date) underlying causes unknown) of your symptoms. Please call the office for an (unknown) (no (unknown) (unknown) outpatient (units (unk nown) date) follow-up and unknown) treatment (unknown) (no (unknown) (unknown) patient's (units (unkn own) date) emergency unknown) department visit. This chart is signed by myself for (unknown) (no (unknown) (unknown) patient's (units (unkn own) date) evaluation today unknown) in the emergency department and her plan for (unknown) (no (unknown) (unknown) penicillin G (units (u nknown) date) [PENICILLIN G] unknown) Allergy Unknown Verified 08/17/22 13:06 (unknown) (no (unknown) (unknown) persistent (units (unk nown) date) symptoms. Please unknown) take medications as directed. (unknown) (no (unknown) (unknown) positive for (units (u nknown) date) COVID but unknown) otherwise has not had sick contacts. Pt states she went (unknown) (no (unknown) (unknown) possible heart (units ( unknown) date) problem given you unknown) were sent here with concern for this from would (unknown) (no (unknown) (unknown) precautions (units (un known) date) provided, unknown) follow-up plan discussed, all questions answered. (unknown) (no (unknown) (unknown) prescribed (units (unk nown) date) benzonatate unknown) advised to follow up closely with primary care, return (unknown) (no (unknown) (unknown) presents with (units ( unknown) date) concern for unknown) fatigue, a cough and feeling somewhat short of breath (unknown) (no (unknown) (unknown) rales, or (units (unkn own) date) rhonchi. unknown) (unknown) (no (unknown) (unknown) ray as well as (units (unknown) date) exam, low unknown) suspicion for a pneumonia and do not feel that (unknown) (no (unknown) (unknown) receiving cough (units (unknown) date) medicine for her unknown) bothersome cough. Based on labs and chest x (unknown) (no (unknown) (unknown) seen.? No pleural (units (unknown) date) effusions or unknown) pneumothorax.? (unknown) (no (unknown) (unknown) smoking history (units (unknown) date) and your x-ray unknown) today was suggestive of some chronic (unknown) (no (unknown) (unknown) stated she did (units (unknown) date) not want to take unknown) any steroid medication, she is interested in (unknown) (no (unknown) (unknown) still has (units (unkn own) date) respiratory panel unknown) pending. (unknown) (no (unknown) (unknown) to feel short of (units (unknown) date) breath with unknown) exertion, she does feel that she has maybe had some (unknown) (no (unknown) (unknown) to [email or web address] (units (unknown) date) and was seen there unknown) and had a negative COVID flu test but they (unknown) (no (unknown) (unknown) tonsillar (units (unkn own) date) hypertrophy or unknown) exudate. Airway patent. (unknown) (no (unknown) (unknown) unchanged for (units ( unknown) date) her. She states it unknown) is somewhat productive with mucus coming up. (unknown) (no (unknown) (unknown) unremarkable and (units (unknown) date) given that she is unknown) not had any chest pain and her symptoms have (unknown) (no (unknown) (unknown) unremarkable, (units (u nknown) date) cardiac workup unknown) labs including BNP is performed given the patient's (unknown) (no (unknown) (unknown) unremarkable.? (units (unknown) date) unknown) (unknown) (no (unknown) (unknown) up with your (units (u nknown) date) doctor in 1-2 days unknown) is recommended nonetheless to continue to rule (unknown) (no (unknown) (unknown) viral panel is (units (unknown) date) obtained. Did unknown) discuss with her possibly treating her with a (unknown) (no (unknown) (unknown) with exertion (units ( unknown) date) over the past 2 or unknown) 3 days. Patient states it is unusual for her (unknown) (no (unknown) (unknown) with your primary (units (unknown) date) care provider and unknown) monitor for new or worsening symptoms do not Social History date description facility 2022-08-17 00:00 Never smoked tobacco ([facility] Vital Signs date measurement value units 2022-08-17 00:00 BMI 20.0 kg/m2 2022-08-17 00:00 BP_diastolic 77 mmHg 2022-08-17 00:00 BP_systolic 180 mmHg 2022-08-17 00:00 heart_rate 67 /min 2022-08-17 00:00 height_metric 162.56 cm 2022-08-17 00:00 height_standard 64 in 2022-08-17 00:00 o2_saturation 98 % 2022-08-17 00:00 respiration_rate 18 /min 2022-08-17 00:00 temperature_metric 36.61 C 2022-08-17 00:00 temperature_standard 97.9 F 2022-08-17 00:00 weight_metric 53.07 kg 2022-08-17 00:00 weight_standard 117 lb
[2022-08-25] MEDS ORDERED: cefTRIAXone 1 GM VIAL IVP STA (17:03)
[2022-08-25] MEDS ORDERED: AZITHROMYCIN INJ 500 MG in SODIUM CHLORIDE 0.9% 250 ML IV STA (17:04)
[2022-08-25 17:08] LABS: B. PARAPERTUSSIS- RESP PCR PAN NOT DETECTED; B. PERTUSSIS- RESP PCR PANEL NOT DETECTED; C. PNEUMONIAE- RESP PCR PANEL NOT DETECTED; CORONAVIRUS 229E-RESP PCR NOT DETECTED; CORONAVIRUS HKU1-RESP PCR NOT DETECTED; CORONAVIRUS NL63-RESP PCR NOT DETECTED; CORONAVIRUS OC43-RESP PCR DETECTED; HUMAN METAPNEUMOVIRUS NOT DETECTED; INFLUENZA A- RESP PCR PANEL NOT DETECTED; INFLUENZA B - RESP PCR PANEL NOT DETECTED; M. PNEUMONIAE- RESP PCR PANEL NOT DETECTED; PARAINFLUENZA VIRUS 1 NOT DETECTED; PARAINFLUENZA VIRUS 2 NOT DETECTED; PARAINFLUENZA VIRUS 3 NOT DETECTED; PARAINFLUENZA VIRUS 4 NOT DETECTED; RHINOVIRUS/ENTEROVIRUS NOT DETECTED; RSV- RESP PCR PANEL NOT DETECTED; SARS-CoV-2 -RESP PCR PANEL NOT DETECTED
[2022-08-25] MEDS ORDERED: ALBUTEROL NEB 2.5 MG/3 ML INH STA (18:15)
--- NOTE | 2022-08-25 19:55 | HISTORY & PHYSICAL EXAMINATION ---
Chief Complaint - Chief Complaint Chief Complaint: Shortness of breath History of Present Illness - Admitted From Admitted From:: ER - History Obtained From Records Reviewed: Yes History obtained from: Patient, staff, and chart Exam Limitations: H&P was conducted via video remotely, using Access Cart. - History of Present Illness HPI Comment/Other: 82 yo F with PMH of Former smoker, Colon cancer in the early s/p rese ction, prior history of SBO, Rheumatoid Arthritis, GERD, and Essential Tremor presented to the ER with c/o 2 week h/o coryza, cough, F/C, weakness, decreased PO appetite, myalgias and fatigue. Pt and her have both had URI symptoms x 2 weeks. Pt's symptoms worsened over that past 3 days. She developed green sputum x 3 days. She does not know how long she has had Fever. Her shortness of breath increased 3 days ago, worse with activity, then worsened today, so called EMS. No abdo pain/N/V, urinary symptoms. Upon EMS arrival, SpO2 80% RA. Pt was given O2, nebs. In the ER, SpO2 80% RA, 98% 3L NC, HR 108, RR 30, WBC 32, Glc 137, BNp 505, Trop 228.7-240.1-234.7, Coronavirus OC43+. CXR: interstitial changes R>L vs airspace dz RLL EKG: NSR, STw depressions, no change from 2020. Pt was given O2, Duonebs, IVF, Rocephin/Azithromycin in the ER. History - Past Medical History Cardiovascular: reports: None, Other (no history of CAD/angina/CHF.) Respiratory: reports: Pneumonia, Other (no history of COPD?Asthma.) Neuro: reports: None Endocrine/Autoimmune: reports: None GI: reports: GERD, Chronic diarrhea, Chronic constipation, Other PAIN COORDINATOR: reports: Other : reports: Incontinence HEENT: reports: Chronic vision loss Psych: reports: None Musculoskeletal: reports: Rheumatoid arthritis Derm: reports: Other (BCC on nose) MRSA Hx?: No - Past Surgical History General: reports: Cholecystectomy, Appendectomy (open ), Bowel surgery ([facility]- distal colon resection (2002)), Colonoscopy (no longer gets surveillance scopes) Ortho: reports: Arthroscopic surgery /PAIN COORDINATOR: reports: Hysterectomy HEENT: reports: Cataracts Derm: reports: Skin cancer surgery - Family & Social History Family History Comment/Other: She reports family history of diabetes otherwise no medical history to her knowledge. Living arrangement: At home Living Situation: With spouse/s.o., Other (She is typically able to do her own ADLs and lives with her . 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 Moved to [facility] in 2001 after she retired. She did smoke for 13 years but quit at the age of 31. She denies any alcohol use. She is independent with her ADLs. - Substance History Use: Uses substance without health or social issues: NONE Tobacco Details: Other (Former tobacco smoker) - POLST Patient has POLST: No POLST Status: Full Code Meds/Allgy - Home Medications Home Medications: Ambulatory Orders Medication Instructions Recorded Confirmed predniSONE [Deltasone] 5 mg PO DAILY 12/20/12 07/07/19 Omeprazole [PriLOSEC] 20 mg PO DAILY 02/25/16 07/07/19 Propranolol ER [Inderal LA] 80 mg PO BID 03/02/17 07/07/19 Calcium Carbonate/Vitamin D3 1 each PO DAILY 05/24/18 07/07/19 [Calcium 500 mg-Vit D3 600 Unit] Cranberry 500 mg PO DAILY 05/24/18 07/07/19 Lutein 20 mg PO DAILY 05/24/18 07/07/19 Multivitamin [Multiple Vitamins] 1 each PO DAILY 05/24/18 07/07/19 Vitamin B Complex 1 tab PO DAILY 05/24/18 07/07/19 Methotrexate Sodium/Pf 25 mg SUBQ MO 07/07/19 07/07/19 [Methotrexate 50 mg/2 ml Vial] Acetaminophen 1 - 2 tab PO Q8H 07/08/19 07/08/19 Naproxen Sodium [Aleve] 2 tab PO Q12H 07/08/19 07/08/19 Wheat Dextrin [Benefiber] 1 each PO DAILY #30 packet 07/08/19 - Allergies Allergies/Adverse Reactions: Allergies Allergy/AdvReac Type Severity Reaction Status Date / Time meperidine HCl * AdvReac Unknown Hallucinati Verified 08/25/22 15:36 [From Demerol] ons morphine AdvReac Unknown Dizziness Verified 08/25/22 15:36 Penicillins AdvReac Unknown Rash Verified 08/25/22 15:36 Sulfa (Sulfonamide AdvReac Unknown Rash Verified 08/25/22 15:36 Antibiotics) tetracycline AdvReac Unknown Rash Verified 08/25/22 15:36 Review of Systems - All Other Systems All Other Systems: reports: Reviewed and negative Prior Level of Functionality: Independent Exam - Vital Signs Reviewed Vital Signs: Yes Vital Signs: Vital Signs x48h Temp Pulse Resp BP Pulse Ox O2 Flow Rate 08/25/22 18:38 104 H 34 H 134/50 H 100 08/25/22 17:18 96 24 134/51 H 98 6 08/25/22 16:41 89 17 08/25/22 15:32 37.1 C 108 H 30 H 180/65 H 80 L - Physical Exam General Appearance: positive: Mild distress Eyes Bilateral: positive: EOMI, No scleral icterus ENT: positive: Dry mucous membranes Respiratory: positive: Other (+mild tachypnea;Access cart stethoscope not working; per ER Provider: +wheezing, +coarse BS Bibasilar) Cardiovascular: positive: Other (Access cart stethoscope not working; per ER Provider: RRR, no murmurs) Abdomen: positive: Other (per ER Provider: non-distended, NT, Soft) Extremities: positive: Other (moves all extrem, no edema) Neurologic/Psychiatric: positive: Oriented x3, CN's nml (2-12), Mood/affect nml Conclusion/Plan - Problem List (1) Acute pneumonia Conclusion/Plan: Acute Respiratory Failure with Hypoxia Pneumonia, CAP COPD Exacerbation Former smoker Coronavirus OC43 (not COVID-19) infection Shortness of Breath Fever Tachypnea Leukocytosis Immunosuppression d/t Methotrexate treatment -SpO2 80% RA, 98% 3L NC, HR 108, RR 30, WBC 32, Glc 137, BNP 505, Coronavirus OC43+. -CXR: interstitial changes R>L vs airspace dz RLL -Pt was given O2, Duonebs, IVF, Rocephin/Azithromycin in the ER. -continue O2 support -continue Rocephin/Azithromycin IV -continue Duonebs, add SoluMedrol, steroid MDI Elevated Troponin -Trop 228.7-240.1-234.7, Coronavirus OC43+. -CXR: interstitial changes R>L vs airspace dz RLL -EKG: NSR, STw depressions, no change from 2020. -no Chest pain; most likely d/t demand ischemia -trend Troponins -Echo ordered Rheumatoid Arthritis -hold home medications: Methotrexate d/t its immunosuppresion, Prednisone while on SoluMedrol H/o Colon cancer in the early s/p resection Prior history of SBO GERD -continue home medications: PPI Essential Tremor -continue home medications: Propranolol VTE Prophylaxis: Lovenox Code Status: Full Code ~Dimple Cabezas MD Hospitalist - Lab Results Lab results reviewed: Yes Fish Bones: 08/25/22 16:07 08/25/22 16:07
[2022-08-25] MEDS ORDERED: ALBUTEROL NEB 2.5 MG/3 ML INH PRN (20:06)
[2022-08-25] MEDS ORDERED: ONDANSETRON ODT 4 MG TABLET TL PRN (20:06)
[2022-08-25] MEDS ORDERED: IPRATROPIUM 0.2 MG/ML NEB INH PRN (20:06)
[2022-08-25] MEDS ORDERED: ACETAMINOPHEN 325 MG TABLET PO PRN (20:06)
[2022-08-25] MEDS ORDERED: ONDANSETRON 4 MG/2 ML VIAL IVP PRN (20:06)
[2022-08-25] MEDS: SODIUM CHLORIDE 0.9% 1,000 ML IV SCH (21:25)
[2022-08-25] MEDS: PROPRANOLOL ER 80 MG CAPSULE PO SCH (21:25)
[2022-08-25] MEDS: ALBUTEROL NEB 2.5 MG/3 ML INH SCH (23:37)
[2022-08-25] MEDS: SODIUM CHLORIDE FLUSH 0.9% 10 ML SYRINGE IVP SCH (23:41)
[2022-08-26 05:44] LABS: BASOPHILS % (AUTO) 0.5 %; EOSINOPHILS % (AUTO) 0.2 %; HCT - HEMATOCRIT 36.6 % (37.0-47.0); HGB - HEMOGLOBIN 11.6 g/dL (12.0-16.0); LYMPHOCYTES % (AUTO) 4.3 %; MEAN CORPUSCULAR HEMOGLOBIN 30.8 pg (27.0-31.0); MEAN CORPUSCULAR HGB CONC 31.7 g/dL (32.0-36.0); MEAN CORPUSCULAR VOLUME 97.1 fL (81.0-99.0); MEAN PLATELET VOLUME 8.9 fL (7.9-10.8); MONOCYTES % (AUTO) 11.2 %; NEUTROPHILS % (AUTO) 82.1 %; PLT - PLATELET COUNT 265 10^3/uL (130-450); RED BLOOD COUNT 3.77 10^6/uL (4.20-5.40); RED CELL DISTRIBUTION WIDTH 14.8 % (12.0-15.0); WHITE BLOOD COUNT 27.2 x10^3/uL (4.8-10.8)
[2022-08-26 05:50] LABS: ABNORMAL LYMPHS % (MANUAL) 0 %
[2022-08-26 05:51] LABS: CALCIUM 9.3 mg/dL (8.5-10.3); CREATININE 0.5 mg/dL (0.4-1.0); POTASSIUM 3.7 mmol/L (3.5-5.0)
[2022-08-26] MEDS: ALBUTEROL NEB 2.5 MG/3 ML INH SCH ×2 (06:04→07:16)
[2022-08-26 06:10] LABS: BAND NEUTROPHILS % (MANUAL) 16 %; LYMPHOCYTES # (MANUAL) 1.6 10^3/uL (1.5-3.5); LYMPHOCYTES % (MANUAL) 6 %; MONOCYTES # (MANUAL) 0.5 10^3/uL (0.0-1.0)
[2022-08-26 06:11] LABS: DIFFERENTIAL COMMENT MANUAL DIFFERENTIAL; PLATELET ESTIMATE, MANUAL NORMAL (130-450,000) (NORMAL); RBC MORPHOLOGY (MULTIPLE) NORMAL APPEARANCE (NORMAL)
[2022-08-26] MEDS: PANTOPRAZOLE 40 MG TABLET PO SCH (06:52)
[2022-08-26] MEDS: BUDESONIDE 0.5 MG/2 ML NEB INH SCH ×2 (07:16→20:41)
[2022-08-26] MEDS: SACCHAROMYCES BOULARDII 250 MG CAPSULE PO SCH ×2 (08:44→17:02)
[2022-08-26] MEDS: CALCIUM CARB (OYSTER SHELL) 500 MG TABLET PO SCH (08:44)
[2022-08-26] MEDS: MULTIVITAMIN TABLET PO SCH (08:44)
[2022-08-26] MEDS: ASPIRIN EC 81 MG TABLET PO SCH (08:44)
[2022-08-26] MEDS: cefTRIAXone 1 GM in SODIUM CHLORIDE 0.9% MINIBAG 100 ML IV SCH (08:47)
[2022-08-26] MEDS: ENOXAPARIN 40 MG/0.4 ML SYRINGE SUBQ SCH (08:48)
[2022-08-26] MEDS ORDERED: methylPREDNISolone SUCCINATE 125 MG/2 ML VIAL IVP SCH (09:00)
[2022-08-26] MEDS ORDERED: CRANBERRY 500 MG PO SCH (09:00)
[2022-08-26] MEDS ORDERED: LUTEIN 20 MG PO SCH (09:00)
[2022-08-26] MEDS ORDERED: NON FORMULARY MED (Vitamin B Complex [Vitamin B Complex] 1 EACH Tablet) PO SCH (09:00)
[2022-08-26] MEDS: AZITHROMYCIN INJ 500 MG in SODIUM CHLORIDE 0.9% 250 ML IV SCH (09:30)
[2022-08-26] MEDS: SODIUM CHLORIDE FLUSH 0.9% 10 ML SYRINGE IVP SCH ×2 (10:25→17:02)
[2022-08-26] MEDS: WHEAT DEXTRIN POWDER PACKET PO SCH (10:25)
[2022-08-26] MEDS: PROPRANOLOL ER 80 MG CAPSULE PO SCH ×2 (10:28→21:18)
--- NOTE | 2022-08-26 11:36 | PHARMACY PROGRESS NOTE ---
- Best Possible Medication History Admit Date and Time: 08/25/222005 Processed by: Pharmacy Medication History completed: Yes Patient Interview: Pt unable to participate Secondary Source(s): Pharmacy records, Insurance records As the person ultimately responsible for medication therapy, providers are able to order a medication from an existing home medication list in [facility] via the "Reconcile Routine" prior to Confirmation of that medication by sales and support center agent. Such practice is discouraged except when the physician, in their clinical judgment, deems that a medical need exists for a medication without regard to previous use.
[2022-08-26] MEDS: SODIUM CHLORIDE 0.9% 1,000 ML IV SCH (11:48)
--- NOTE | 2022-08-26 12:36 | PROVIDER PROGRESS NOTE ---
Subjective - Prog Note Date Prog Note Date: 08/26/22 Prog Note Time: 12:42 - Subjective Pt reports feeling: No change Subjective: Admitted by telemedicine last night. She was brought in by EMS for low saturations at home. She became ill with URI 2 weeks ago. 3 days ago and has been having gradually progressive cough, shortness of breath, chest congestions. She is immunocompromised from a history of rheumatoid arthritis for which she takes methotrexate. She is also had colon cancer with resection. She is not usually on oxygen. When EMS got there they put her on 6 L nasal cannula for an O2 sat of 80% on room air. She is so weak that she is now incontinent of urine and stool. Chest x-ray had chronic interstitial changes worse when compared to a previous chest x-ray from March 2020. This could represent interval worsening of interstitial lung disease versus superimposed acute airway disease. Her coronavirus PCR panel is positive. But it is not SARS COVID-19. White cell count is 32,000. Overnight she has received albuterol, Atrovent, azithromycin, Pulmicort, ceftriaxone, and was started on Solu-Medrol this morning. She is still very short of breath, and easily tachypneic with speaking. Current Medications - Current Medications Current Medications: Active Medications Acetaminophen (Acetaminophen 325 Mg Tablet) 650 mg PO Q4HR PRN PRN Reason: Pain 1 to 4, or Fever Albuterol (Albuterol Neb 2.5 Mg/3 Ml) 2.5 mg INH Q4HR [facility] Stop: 08/26/22 20:59 Last Admin: 08/26/22 07:16 Dose: 2.5 mg Albuterol (Albuterol Neb 2.5 Mg/3 Ml) 2.5 mg INH Q2HR PRN PRN Reason: Wheezing Aspirin (Aspirin Ec 81 Mg Tablet) 81 mg PO DAILY [facility] Last Admin: 08/26/22 08:44 Dose: 81 mg Budesonide (Budesonide 0.5 Mg/2 Ml Neb) 0.5 mg INH RTBID [facility] Last Admin: 08/26/22 07:16 Dose: 0.5 mg Calcium Carbonate/Glycine (Calcium Carb (Oyster Shell) 500 Mg Tablet) 500 mg PO DAILY [facility] Last Admin: 08/26/22 08:44 Dose: 500 mg Enoxaparin Sodium (Enoxaparin 40 Mg/0.4 Ml Syringe) 40 mg SUBQ DAILY [facility] Last Admin: 08/26/22 08:48 Dose: 40 mg Sodium Chloride (Normal Saline 0.9%) 1,000 mls @ 75 mls/hr IV .[id number] [facility] Last Admin: 08/26/22 11:48 Dose: 75 mls/hr Azithromycin 500 mg/ Sodium (Chloride) 250 mls @ 250 mls/hr IV DAILY [facility] Stop: 08/28/22 09:59 Last Admin: 08/26/22 09:30 Dose: 250 mls/hr Ceftriaxone Sodium 1 gm/ (Sodium Chloride) 100 mls @ 200 mls/hr IV DAILY [facility] Stop: 08/30/22 09:29 Last Admin: 08/26/22 08:47 Dose: 200 mls/hr Ipratropium [place] (Ipratropium 0.2 Mg/Ml Neb) 0.5 mg INH Q4HR PRN PRN Reason: Wheezing Methylprednisolone Sodium Succinate (Methylprednisolone Succinate 125 Mg/2 Ml Vial) 60 mg IVP DAILY [facility] Last Admin: 08/26/22 09:30 Dose: 60 mg Multivitamins (Multivitamin Tablet) 1 tab PO DAILY [facility] Last Admin: 08/26/22 08:44 Dose: 1 tab Ondansetron HCl (Ondansetron Odt 4 Mg Tablet) 4 mg TL Q6HR PRN PRN Reason: Nausea / Vomiting Ondansetron HCl (Ondansetron 4 Mg/2 Ml Vial) 4 mg IVP Q6HR PRN PRN Reason: Nausea / Vomiting Pantoprazole Sodium (Pantoprazole 40 Mg Tablet) 40 mg PO QDAC [facility] Last Admin: 08/26/22 06:52 Dose: 40 mg Propranolol HCl (Propranolol Er 80 Mg Capsule) 80 mg PO BID [facility] Last Admin: 08/26/22 10:28 Dose: 80 mg Saccharomyces Boulardii (Saccharomyces Boulardii 250 Mg Capsule) 250 mg PO BIDWM [facility] Last Admin: 08/26/22 08:44 Dose: 250 mg Sodium Chloride (Sodium Chloride Flush 0.9% 10 Ml Syringe) 10 ml IVP PRN PRN PRN Reason: NEEDED PER PROVIDER ORDERS Sodium Chloride (Sodium Chloride Flush 0.9% 10 Ml Syringe) 10 ml IVP 0100,0900,1700 [facility] Last Admin: 08/26/22 10:25 Dose: Not Given Wheat Dextrin (Wheat Dextrin Powder Packet) 1 packet PO DAILY [facility] Last Admin: 08/26/22 10:25 Dose: 1 packet predniSONE [Deltasone] 5 mg PO DAILY 12/20/12 Propranolol ER [Inderal LA] 80 mg PO BID 03/02/17 Methotrexate Sodium/Pf [Methotrexate 50 mg/2 ml Vial] 25 mg SUBQ MO 07/07/19 Objective - Vital Signs/Intake & Output Reviewed Vital Signs: Yes Vital Signs: Vital Signs x48h Temp Pulse Pulse Pulse Resp BP Pulse Ox 08/26/22 08:10 83 133/52 H 08/26/22 07:51 37.2 C 80 32 H 136/38 H 98 08/26/22 07:20 89 16 08/26/22 07:19 08/26/22 05:19 36.7 C 81 30 H 145/58 H 100 O2 Flow Rate 08/26/22 08:10 08/26/22 07:51 4 08/26/22 07:20 4 08/26/22 07:19 4 08/26/22 05:19 4 Intake & Output: Intake & Output 08/23/22 08/24/22 08/25/22 08/26/22 23:59 23:59 23:59 23:59 Intake Total 1050 1060 Balance 1050 1060 - Objective General Appearance: positive: Alert, Other (Has breakfast in front of her, and maybe took a few bites because of dyspnea. Very thin 82-year-old female at 45.5 kg and is 16.7 BMI) Eyes Bilateral: positive: PERRL, EOMI ENT: positive: Dry mucous membranes Neck: positive: No JVD. negative: Stiff neck Respiratory: positive: Wheezes (Very faint. More than anything very quiet lungs, almost no air movement). negative: Rales, Rhonchi Cardiovascular: positive: Regular rate & rhythm, Systolic murmur Abdomen: positive: Non-tender, No organomegaly, Nml bowel sounds, No distention Skin: positive: Warm, Dry, Pallor Extremities: positive: Full ROM, No pedal edema Neurologic/Psychiatric: positive: Oriented x3, CN's nml (2-12), Motor nml - Lab Results Fish Bones: 08/26/22 05:26 08/26/22 05:26 Other Labs: Lab Results x24hrs 08/26/22 08/26/22 08/26/22 Range/Units 07:47 05:26 05:26 WBC 27.2 H (4.8-10.8) x10^3/uL RBC 3.77 L (4.20-5.40) 10^6/uL Hgb 11.6 L (12.0-16.0) g/dL Hct 36.6 L (37.0-47.0) % MCV 97.1 (81.0-99.0) fL MCH 30.8 (27.0-31.0) pg MCHC 31.7 L (32.0-36.0) g/dL RDW 14.8 (12.0-15.0) % Plt Count 265 (130-450) 10^3/uL MPV 8.9 (7.9-10.8) fL Neut # (Auto) Not Reportable Lymph # (Auto) Not Reportable Preble # (Auto) Not Reportable Eos # (Auto) Not Reportable Baso # (Auto) Not Reportable Absolute Nucleated RBC Not Reportable Total Counted 100 Band Neuts % (Manual) 16 H (0 - 10) % Abnorm Lymph % (Manual) 0 % Nucleated RBC % Not Reportable Neutrophils # (Manual) 25.0 H (1.5-6.6) 10^3/uL Lymphocytes # (Manual) 1.6 (1.5-3.5) 10^3/uL Monocytes # (Manual) 0.5 (0.0-1.0) 10^3/uL Eosinophils # (Manual) 0.0 (0-0.7) 10^3/uL Basophils # (Manual) 0.0 (0-0.1) 10^3/uL Differential Comment MANUAL DIFFERENTIAL Platelet Estimate NORMAL (130-450,000) (NORMAL) Platelet Morphology (NORMAL) RBC Morph Micro Appear NORMAL APPEARANCE (NORMAL) Sodium 142 (135-145) mmol/L Potassium 3.7 (3.5-5.0) mmol/L Chloride 107 (101-111) mmol/L Carbon Dioxide 27 (21-32) mmol/L Anion Gap 8.0 (6-13) BUN 23 H (6-20) mg/dL Creatinine 0.5 (0.4-1.0) mg/dL Estimated GFR (MDRD) 118 (>89) Glucose 136 H (70-100) mg/dL Lactic Acid (0.5-2.2) mmol/L Calcium 9.3 (8.5-10.3) mg/dL Magnesium (1.7-2.8) mg/dL Total Bilirubin (0.2-1.0) mg/dL AST (10-42) IU/L ALT (10-60) IU/L Alkaline Phosphatase (42-121) IU/L Troponin I High Sens 140.7 H* (2.3-14.8) ng/L B-Natriuretic Peptide (5-100) pg/mL Total Protein (6.7-8.2) g/dL Albumin (3.2-5.5) g/dL Globulin (2.1-4.2) g/dL Albumin/Globulin Ratio (1.0-2.2) Lipase (22-51) U/L Nasal Adenovirus (PCR) Nasal B. parapertussis DNA (PCR) Nasal Coronavir 229E PCR Nasal Coronavir HKU1 PCR Nasal Coronavir NL63 PCR Nasal Coronavir OC43 PCR Nasal Enterovir/Rhinovir PCR Nasal Influenza B PCR Nasal Influenza A PCR Nasal Parainfluen 1 PCR Nasal Parainfluen 2 PCR Nasal Parainfluen 3 PCR Nasal Parainfluen 4 PCR Nasal RSV (PCR) Nasal B.pertussis DNA PCR Nasal C.pneumoniae (PCR) Oscar Human Metapneumo PCR Nasal M.pneumoniae (PCR) Nasal SARS-CoV-2 (PCR) 08/26/22 08/25/22 08/25/22 Range/Units 01:56 17:44 16:37 WBC (4.8-10.8) x10^3/uL RBC (4.20-5.40) 10^6/uL Hgb (12.0-16.0) g/dL Hct (37.0-47.0) % MCV (81.0-99.0) fL MCH (27.0-31.0) pg MCHC (32.0-36.0) g/dL RDW (12.0-15.0) % Plt Count (130-450) 10^3/uL MPV (7.9-10.8) fL Neut # (Auto) Lymph # (Auto) Preble # (Auto) Eos # (Auto) Baso # (Auto) Absolute Nucleated RBC Total Counted Band Neuts % (Manual) (0 - 10) % Abnorm Lymph % (Manual) % Nucleated RBC % Neutrophils # (Manual) (1.5-6.6) 10^3/uL Lymphocytes # (Manual) (1.5-3.5) 10^3/uL Monocytes # (Manual) (0.0-1.0) 10^3/uL Eosinophils # (Manual) (0-0.7) 10^3/uL Basophils # (Manual) (0-0.1) 10^3/uL Differential Comment Platelet Estimate (NORMAL) Platelet Morphology (NORMAL) RBC Morph Micro Appear (NORMAL) Sodium (135-145) mmol/L Potassium (3.5-5.0) mmol/L Chloride (101-111) mmol/L Carbon Dioxide (21-32) mmol/L Anion Gap (6-13) BUN (6-20) mg/dL Creatinine (0.4-1.0) mg/dL Estimated GFR (MDRD) (>89) Glucose (70-100) mg/dL Lactic Acid 1.7 (0.5-2.2) mmol/L Calcium (8.5-10.3) mg/dL Magnesium (1.7-2.8) mg/dL Total Bilirubin (0.2-1.0) mg/dL AST (10-42) IU/L ALT (10-60) IU/L Alkaline Phosphatase (42-121) IU/L Troponin I High Sens 194.5 H* 228.7 H* (2.3-14.8) ng/L B-Natriuretic Peptide (5-100) pg/mL Total Protein (6.7-8.2) g/dL Albumin (3.2-5.5) g/dL Globulin (2.1-4.2) g/dL Albumin/Globulin Ratio (1.0-2.2) Lipase (22-51) U/L Nasal Adenovirus (PCR) Nasal B. parapertussis DNA (PCR) Nasal Coronavir 229E PCR Nasal Coronavir HKU1 PCR Nasal Coronavir NL63 PCR Nasal Coronavir OC43 PCR Nasal Enterovir/Rhinovir PCR Nasal Influenza B PCR Nasal Influenza A PCR Nasal Parainfluen 1 PCR Nasal Parainfluen 2 PCR Nasal Parainfluen 3 PCR Nasal Parainfluen 4 PCR Nasal RSV (PCR) Nasal B.pertussis DNA PCR Nasal C.pneumoniae (PCR) Oscar Human Metapneumo PCR Nasal M.pneumoniae (PCR) Nasal SARS-CoV-2 (PCR) 08/25/22 08/25/22 08/25/22 Range/Units 16:37 16:12 16:07 WBC (4.8-10.8) x10^3/uL RBC (4.20-5.40) 10^6/uL Hgb (12.0-16.0) g/dL Hct (37.0-47.0) % MCV (81.0-99.0) fL MCH (27.0-31.0) pg MCHC (32.0-36.0) g/dL RDW (12.0-15.0) % Plt Count (130-450) 10^3/uL MPV (7.9-10.8) fL Neut # (Auto) Lymph # (Auto) Preble # (Auto) Eos # (Auto) Baso # (Auto) Absolute Nucleated RBC Total Counted Band Neuts % (Manual) (0 - 10) % Abnorm Lymph % (Manual) % Nucleated RBC % Neutrophils # (Manual) (1.5-6.6) 10^3/uL Lymphocytes # (Manual) (1.5-3.5) 10^3/uL Monocytes # (Manual) (0.0-1.0) 10^3/uL Eosinophils # (Manual) (0-0.7) 10^3/uL Basophils # (Manual) (0-0.1) 10^3/uL Differential Comment Platelet Estimate (NORMAL) Platelet Morphology (NORMAL) RBC Morph Micro Appear (NORMAL) Sodium (135-145) mmol/L Potassium (3.5-5.0) mmol/L Chloride (101-111) mmol/L Carbon Dioxide (21-32) mmol/L Anion Gap (6-13) BUN (6-20) mg/dL Creatinine (0.4-1.0) mg/dL Estimated GFR (MDRD) (>89) Glucose (70-100) mg/dL Lactic Acid (0.5-2.2) mmol/L Calcium (8.5-10.3) mg/dL Magnesium (1.7-2.8) mg/dL Total Bilirubin (0.2-1.0) mg/dL AST (10-42) IU/L ALT (10-60) IU/L Alkaline Phosphatase (42-121) IU/L Troponin I High Sens 240.1 H* (2.3-14.8) ng/L B-Natriuretic Peptide 505 H (5-100) pg/mL Total Protein (6.7-8.2) g/dL Albumin (3.2-5.5) g/dL Globulin (2.1-4.2) g/dL Albumin/Globulin Ratio (1.0-2.2) Lipase (22-51) U/L Nasal Adenovirus (PCR) NOT DETECTED Nasal B. parapertussis DNA (PCR) NOT DETECTED Nasal Coronavir 229E PCR NOT DETECTED Nasal Coronavir HKU1 PCR NOT DETECTED Nasal Coronavir NL63 PCR NOT DETECTED Nasal Coronavir OC43 PCR DETECTED A Nasal Enterovir/Rhinovir PCR NOT DETECTED Nasal Influenza B PCR NOT DETECTED Nasal Influenza A PCR NOT DETECTED Nasal Parainfluen 1 PCR NOT DETECTED Nasal Parainfluen 2 PCR NOT DETECTED Nasal Parainfluen 3 PCR NOT DETECTED Nasal Parainfluen 4 PCR NOT DETECTED Nasal RSV (PCR) NOT DETECTED Nasal B.pertussis DNA PCR NOT DETECTED Nasal C.pneumoniae (PCR) NOT DETECTED Oscar Human Metapneumo PCR NOT DETECTED Nasal M.pneumoniae (PCR) NOT DETECTED Nasal SARS-CoV-2 (PCR) NOT DETECTED 08/25/22 08/25/22 08/25/22 Range/Units 16:07 16:07 16:07 WBC (4.8-10.8) x10^3/uL RBC (4.20-5.40) 10^6/uL Hgb (12.0-16.0) g/dL Hct (37.0-47.0) % MCV (81.0-99.0) fL MCH (27.0-31.0) pg MCHC (32.0-36.0) g/dL RDW (12.0-15.0) % Plt Count (130-450) 10^3/uL MPV (7.9-10.8) fL Neut # (Auto) Lymph # (Auto) Preble # (Auto) Eos # (Auto) Baso # (Auto) Absolute Nucleated RBC Total Counted Band Neuts % (Manual) (0 - 10) % Abnorm Lymph % (Manual) % Nucleated RBC % Neutrophils # (Manual) (1.5-6.6) 10^3/uL Lymphocytes # (Manual) (1.5-3.5) 10^3/uL Monocytes # (Manual) (0.0-1.0) 10^3/uL Eosinophils # (Manual) (0-0.7) 10^3/uL Basophils # (Manual) (0-0.1) 10^3/uL Differential Comment Platelet Estimate (NORMAL) Platelet Morphology (NORMAL) RBC Morph Micro Appear (NORMAL) Sodium 137 (135-145) mmol/L Potassium 3.8 (3.5-5.0) mmol/L Chloride 102 (101-111) mmol/L Carbon Dioxide 24 (21-32) mmol/L Anion Gap 11.0 (6-13) BUN 20 (6-20) mg/dL Creatinine 0.4 (0.4-1.0) mg/dL Estimated GFR (MDRD) 152 (>89) Glucose 137 H (70-100) mg/dL Lactic Acid (0.5-2.2) mmol/L Calcium 9.5 (8.5-10.3) mg/dL Magnesium 2.0 (1.7-2.8) mg/dL Total Bilirubin 1.2 H (0.2-1.0) mg/dL AST 17 (10-42) IU/L ALT 15 (10-60) IU/L Alkaline Phosphatase 74 (42-121) IU/L Troponin I High Sens 234.7 H* (2.3-14.8) ng/L B-Natriuretic Peptide (5-100) pg/mL Total Protein 6.9 (6.7-8.2) g/dL Albumin 3.3 (3.2-5.5) g/dL Globulin 3.6 (2.1-4.2) g/dL Albumin/Globulin Ratio 0.9 L (1.0-2.2) Lipase 22 (22-51) U/L Nasal Adenovirus (PCR) Nasal B. parapertussis DNA (PCR) Nasal Coronavir 229E PCR Nasal Coronavir HKU1 PCR Nasal Coronavir NL63 PCR Nasal Coronavir OC43 PCR Nasal Enterovir/Rhinovir PCR Nasal Influenza B PCR Nasal Influenza A PCR Nasal Parainfluen 1 PCR Nasal Parainfluen 2 PCR Nasal Parainfluen 3 PCR Nasal Parainfluen 4 PCR Nasal RSV (PCR) Nasal B.pertussis DNA PCR Nasal C.pneumoniae (PCR) Oscar Human Metapneumo PCR Nasal M.pneumoniae (PCR) Nasal SARS-CoV-2 (PCR) 08/25/22 Range/Units 16:07 WBC 32.0 H (4.8-10.8) x10^3/uL RBC 4.30 (4.20-5.40) 10^6/uL Hgb 13.2 (12.0-16.0) g/dL Hct 41.0 (37.0-47.0) % MCV 95.3 (81.0-99.0) fL MCH 30.7 (27.0-31.0) pg MCHC 32.2 (32.0-36.0) g/dL RDW 14.7 (12.0-15.0) % Plt Count 258 (130-450) 10^3/uL MPV 9.3 (7.9-10.8) fL Neut # (Auto) Not Reportable Lymph # (Auto) Not Reportable Preble # (Auto) Not Reportable Eos # (Auto) Not Reportable Baso # (Auto) Not Reportable Absolute Nucleated RBC Not Reportable Total Counted 100 Band Neuts % (Manual) 2 (0 - 10) % Abnorm Lymph % (Manual) 0 % Nucleated RBC % Not Reportable Neutrophils # (Manual) 29.1 H (1.5-6.6) 10^3/uL Lymphocytes # (Manual) 1.0 L (1.5-3.5) 10^3/uL Monocytes # (Manual) 1.9 H (0.0-1.0) 10^3/uL Eosinophils # (Manual) 0.0 (0-0.7) 10^3/uL Basophils # (Manual) 0.0 (0-0.1) 10^3/uL Differential Comment MANUAL DIFFERENTIAL Platelet Estimate NORMAL (130-450,000) (NORMAL) Platelet Morphology NORMAL APPEARANCE (NORMAL) RBC Morph Micro Appear NORMAL APPEARANCE (NORMAL) Sodium (135-145) mmol/L Potassium (3.5-5.0) mmol/L Chloride (101-111) mmol/L Carbon Dioxide (21-32) mmol/L Anion Gap (6-13) BUN (6-20) mg/dL Creatinine (0.4-1.0) mg/dL Estimated GFR (MDRD) (>89) Glucose (70-100) mg/dL Lactic Acid (0.5-2.2) mmol/L Calcium (8.5-10.3) mg/dL Magnesium (1.7-2.8) mg/dL Total Bilirubin (0.2-1.0) mg/dL AST (10-42) IU/L ALT (10-60) IU/L Alkaline Phosphatase (42-121) IU/L Troponin I High Sens (2.3-14.8) ng/L B-Natriuretic Peptide (5-100) pg/mL Total Protein (6.7-8.2) g/dL Albumin (3.2-5.5) g/dL Globulin (2.1-4.2) g/dL Albumin/Globulin Ratio (1.0-2.2) Lipase (22-51) U/L Nasal Adenovirus (PCR) Nasal B. parapertussis DNA (PCR) Nasal Coronavir 229E PCR Nasal Coronavir HKU1 PCR Nasal Coronavir NL63 PCR Nasal Coronavir OC43 PCR Nasal Enterovir/Rhinovir PCR Nasal Influenza B PCR Nasal Influenza A PCR Nasal Parainfluen 1 PCR Nasal Parainfluen 2 PCR Nasal Parainfluen 3 PCR Nasal Parainfluen 4 PCR Nasal RSV (PCR) Nasal B.pertussis DNA PCR Nasal C.pneumoniae (PCR) Oscar Human Metapneumo PCR Nasal M.pneumoniae (PCR) Nasal SARS-CoV-2 (PCR) ABX Reporting Has patient been on IV antibiotics over the past 48 hours?: Yes Assessment/Plan - Problem List (1) Acute respiratory failure with hypoxia Impression: She is sitting upright. Holding perfectly still. Barely has enough energy to keep her head upright. Short of breath at rest. Shallow, respirations. She starts out at 16. When she starts talking to me she was up to 32. On 4 L nasal cannula, down from 6 L nasal cannula. She is a full code. Plan: Continue current treatment of nebulizers, steroids, antibiotics. I will increase steroids from 60 mg IV push daily to 40 mg IV push 3 times daily. Change nebulizers to a fixed DuoNeb at 3 times a day. Continue Pulmicort and add Perforomist 0.5 mg twice daily. Add singular 10 mg daily. Add Mucinex 600 mg p.o. twice daily. (2) COPD exacerbation Impression: Because of her respiratory failure. Plan is as a #1. She does not have a history of COPD in the past. She is a former smoker but quit smoking at the age of 31. I would recommend that she have formal pulmonary function studies with DLCO performed when she is stabilized from this current acute episode of care. (3) Coronavirus infection Impression: There is no definite bacterial consolidation of pneumonia on chest x-ray. She appears to have worsening interstitial changes. Most likely viral by history and exam and objective data. Nevertheless she is on empiric antibiotic therapy. Today is day #2 of azithromycin. She will have 3 days. Today is day #2 of Ro cephin and she will have 5 days of that. (4) Immunocompromised state due to drug therapy Impression: Due to chronic methotrexate and chronic steroid therapy. MCV is normal. She does not list folic acid on her medication list. Plan: Methotrexate currently being held. Add folic acid to daily medication list Prednisone being given to help with inflammation from COPD exacerbation (5) Elevated troponin Impression: Laboratory Tests 08/25/22 08/25/22 08/26/22 16:37 17:44 01:56 Troponin I High Sens 240.1 H* 228.7 H* 194.5 H* 08/26/22 07:47 Troponin I High Sens 140.7 H* My suspicion is that of hypoxia causing demand ischemia. EKG is without changes. No treatment for NSTEMI at this time.
[2022-08-26] MEDS: guaiFENesin 600 MG TABLET PO SCH ×2 (14:47→21:18)
[2022-08-26] MEDS: FOLIC ACID 1 MG TABLET PO SCH (14:47)
[2022-08-26] MEDS: methylPREDNISolone SUCCINATE 40 MG/ML VIAL IVP SCH ×2 (14:48→21:25)
[2022-08-26] MEDS: IPRATROPIUM/ALBUTEROL 3 ML NEB INH SCH ×2 (17:04→20:42)
[2022-08-26] MEDS: FORMOTEROL FUMARATE NEB 20 MCG/2 ML INH SCH (20:41)
[2022-08-26] MEDS: MONTELUKAST 10 MG TABLET PO SCH (21:18)
[2022-08-27] MEDS: SODIUM CHLORIDE 0.9% 1,000 ML IV SCH ×2 (00:38→15:01)
[2022-08-27] MEDS: SODIUM CHLORIDE FLUSH 0.9% 10 ML SYRINGE IVP SCH ×3 (00:48→17:17)
[2022-08-27 06:07] LABS: BASOPHILS % (AUTO) 0.2 %; HCT - HEMATOCRIT 34.4 % (37.0-47.0); HGB - HEMOGLOBIN 10.6 g/dL (12.0-16.0); LYMPHOCYTES % (AUTO) 4.3 %; MEAN CORPUSCULAR HEMOGLOBIN 30.6 pg (27.0-31.0); MEAN CORPUSCULAR HGB CONC 30.8 g/dL (32.0-36.0); MEAN CORPUSCULAR VOLUME 99.4 fL (81.0-99.0); MEAN PLATELET VOLUME 9.5 fL (7.9-10.8); MONOCYTES % (AUTO) 4.5 %; NEUTROPHILS % (AUTO) 90.2 %; PLT - PLATELET COUNT 217 10^3/uL (130-450); RED BLOOD COUNT 3.46 10^6/uL (4.20-5.40); RED CELL DISTRIBUTION WIDTH 15.1 % (12.0-15.0); WHITE BLOOD COUNT 20.8 x10^3/uL (4.8-10.8)
[2022-08-27 06:18] LABS: ABNORMAL LYMPHS % (MANUAL) 0 %
[2022-08-27 06:33] LABS: CALCIUM 9.6 mg/dL (8.5-10.3); CREATININE 0.4 mg/dL (0.4-1.0); POTASSIUM 3.7 mmol/L (3.5-5.0)
[2022-08-27 06:47] LABS: BAND NEUTROPHILS % (MANUAL) 8 %; DIFFERENTIAL COMMENT MANUAL DIFFERENTIAL; LYMPHOCYTES # (MANUAL) 1.5 10^3/uL (1.5-3.5); LYMPHOCYTES % (MANUAL) 7 %; NEUTROPHILS # (MANUAL) 19.3 10^3/uL (1.5-6.6); PLATELET ESTIMATE, MANUAL NORMAL (130-450,000) (NORMAL); RBC MORPHOLOGY (MULTIPLE) NORMAL APPEARANCE (NORMAL)
[2022-08-27] MEDS: methylPREDNISolone SUCCINATE 40 MG/ML VIAL IVP SCH ×2 (06:52→13:26)
[2022-08-27] MEDS: PANTOPRAZOLE 40 MG TABLET PO SCH (06:52)
[2022-08-27] MEDS: FORMOTEROL FUMARATE NEB 20 MCG/2 ML INH SCH ×2 (07:53→20:35)
[2022-08-27] MEDS: BUDESONIDE 0.5 MG/2 ML NEB INH SCH ×2 (07:53→20:35)
[2022-08-27] MEDS: IPRATROPIUM/ALBUTEROL 3 ML NEB INH SCH ×4 (07:53→20:35)
[2022-08-27] MEDS: cefTRIAXone 1 GM in SODIUM CHLORIDE 0.9% MINIBAG 100 ML IV SCH (09:08)
[2022-08-27] MEDS: ENOXAPARIN 40 MG/0.4 ML SYRINGE SUBQ SCH (09:11)
[2022-08-27] MEDS: ASPIRIN EC 81 MG TABLET PO SCH (09:11)
[2022-08-27] MEDS: MULTIVITAMIN TABLET PO SCH (09:11)
[2022-08-27] MEDS: FOLIC ACID 1 MG TABLET PO SCH (09:11)
[2022-08-27] MEDS: PROPRANOLOL ER 80 MG CAPSULE PO SCH ×2 (09:11→21:30)
[2022-08-27] MEDS: SACCHAROMYCES BOULARDII 250 MG CAPSULE PO SCH ×2 (09:11→17:17)
[2022-08-27] MEDS: ZINC OXIDE 20% OINT 30 GM TUBE TOP PRN ×2 (09:11→21:33)
[2022-08-27] MEDS: guaiFENesin 600 MG TABLET PO SCH ×2 (09:12→21:30)
[2022-08-27] MEDS: CALCIUM CARB (OYSTER SHELL) 500 MG TABLET PO SCH (09:12)
[2022-08-27] MEDS: WHEAT DEXTRIN POWDER PACKET PO SCH (09:18)
[2022-08-27] MEDS: AZITHROMYCIN INJ 500 MG in SODIUM CHLORIDE 0.9% 250 ML IV SCH (10:29)
--- NOTE | 2022-08-27 17:43 | PROVIDER PROGRESS NOTE ---
Subjective - Prog Note Date Prog Note Date: 08/27/22 Prog Note Time: 17:40 - Subjective Subjective: She did work with PT today. Really struggled to get up. Very severely dyspneic. In speaking to her and her , she is still a person who is able to accomplish her activities of daily living without having to stop. She can get up in the morning, make coffee. Do some light chores. Eat breakfast. All without having to stop because of shortness of breath. This is very different for her. She is severely tachypneic with just speaking much/trying to sit up and stand with physical therapy. She is not happy about getting up out of bed but the physical therapist coax her to sitting in a chair. Still coughing. Bringing up some phlegm. No hemoptysis. No chest pain. Her main complaint is "I am just exhausted" Current Medications - Current Medications Current Medications: Active Medications Acetaminophen (Acetaminophen 325 Mg Tablet) 650 mg PO Q4HR PRN PRN Reason: Pain 1 to 4, or Fever Albuterol (Albuterol Neb 2.5 Mg/3 Ml) 2.5 mg INH Q2HR PRN PRN Reason: Wheezing Albuterol/Ipratropium (Ipratropium/Albuterol 3 Ml Neb) 3 ml INH RTQID [facility] Last Admin: 08/27/22 15:38 Dose: 3 ml Aspirin (Aspirin Ec 81 Mg Tablet) 81 mg PO DAILY [facility] Last Admin: 08/27/22 09:11 Dose: 81 mg Budesonide (Budesonide 0.5 Mg/2 Ml Neb) 0.5 mg INH RTBID [facility] Last Admin: 08/27/22 07:53 Dose: 0.5 mg Calcium Carbonate/Glycine (Calcium Carb (Oyster Shell) 500 Mg Tablet) 500 mg PO DAILY [facility] Last Admin: 08/27/22 09:12 Dose: 500 mg Enoxaparin Sodium (Enoxaparin 40 Mg/0.4 Ml Syringe) 40 mg SUBQ DAILY [facility] Last Admin: 08/27/22 09:11 Dose: 40 mg Folic Acid (Folic Acid 1 Mg Tablet) 1 mg PO DAILY [facility] Last Admin: 08/27/22 09:11 Dose: 1 mg Formoterol Fumarate (Formoterol Fumarate Neb 20 Mcg/2 Ml) 20 mcg INH RTBID [facility] Last Admin: 08/27/22 07:53 Dose: 20 mcg Guaifenesin (Guaifenesin 600 Mg Tablet) 600 mg PO BID [facility] Last Admin: 08/27/22 09:12 Dose: 600 mg Sodium Chloride (Normal Saline 0.9%) 1,000 mls @ 75 mls/hr IV .[id number] [facility] Last Admin: 08/27/22 15:01 Dose: 75 mls/hr Azithromycin 500 mg/ Sodium (Chloride) 250 mls @ 250 mls/hr IV DAILY [facility] Stop: 08/28/22 09:59 Last Infusion: 08/27/22 11:38 Dose: Infused Ceftriaxone Sodium 1 gm/ (Sodium Chloride) 100 mls @ 200 mls/hr IV DAILY [facility] Stop: 08/30/22 09:29 Last Infusion: 08/27/22 10:31 Dose: Infused Montelukast Sodium (Montelukast 10 Mg Tablet) 10 mg PO QPM [facility] Last Admin: 08/26/22 21:18 Dose: 10 mg Multi-Ingredient Ointment (Zinc Oxide 20% Oint 30 Gm Tube) 1 applic TOP PRN PRN PRN Reason: Skin Care Last Admin: 08/27/22 09:11 Dose: 1 applic Multivitamins (Multivitamin Tablet) 1 tab PO DAILY [facility] Last Admin: 08/27/22 09:11 Dose: 1 tab Ondansetron HCl (Ondansetron Odt 4 Mg Tablet) 4 mg TL Q6HR PRN PRN Reason: Nausea / Vomiting Ondansetron HCl (Ondansetron 4 Mg/2 Ml Vial) 4 mg IVP Q6HR PRN PRN Reason: Nausea / Vomiting Pantoprazole Sodium (Pantoprazole 40 Mg Tablet) 40 mg PO QDAC [facility] Last Admin: 08/27/22 06:52 Dose: 40 mg Propranolol HCl (Propranolol Er 80 Mg Capsule) 80 mg PO BID [facility] Last Admin: 08/27/22 09:11 Dose: 80 mg Saccharomyces Boulardii (Saccharomyces Boulardii 250 Mg Capsule) 250 mg PO BIDWM [facility] Last Admin: 08/27/22 17:17 Dose: 250 mg Sodium Chloride (Sodium Chloride Flush 0.9% 10 Ml Syringe) 10 ml IVP PRN PRN PRN Reason: NEEDED PER PROVIDER ORDERS Sodium Chloride (Sodium Chloride Flush 0.9% 10 Ml Syringe) 10 ml IVP 0100,0900,1700 [facility] Last Admin: 08/27/22 17:17 Dose: 10 ml Wheat Dextrin (Wheat Dextrin Powder Packet) 1 packet PO DAILY [facility] Last Admin: 08/27/22 09:18 Dose: 1 packet predniSONE [Deltasone] 5 mg PO DAILY 12/20/12 Propranolol ER [Inderal LA] 80 mg PO BID 03/02/17 Methotrexate Sodium/Pf [Methotrexate 50 mg/2 ml Vial] 25 mg SUBQ MO 07/07/19 Objective - Vital Signs/Intake & Output Reviewed Vital Signs: Yes Vital Signs: Vital Signs x48h Temp Pulse Pulse Pulse Pulse Pulse Resp 08/27/22 16:21 36.3 C L 74 28 H 08/27/22 15:39 78 18 08/27/22 14:00 74 75 08/27/22 12:20 36.7 C 73 28 H 08/27/22 11:51 76 18 BP BP BP Pulse Ox O2 Flow Rate 08/27/22 16:21 145/57 H 94 2 08/27/22 15:39 2 08/27/22 14:00 122/55 L 119/54 L 08/27/22 12:20 118/55 L 97 2 08/27/22 11:51 2 Intake & Output: Intake & Output 08/24/22 08/25/22 08/26/22 08/27/22 23:59 23:59 23:59 23:59 Intake Total 1050 1770 3082.5 Output Total 300 350 Balance 1050 1470 2732.5 - Objective General Appearance: positive: Alert, Mild distress (Yesterday she was using some of accessory muscles in that shoulder were going up, rib cage was being used a little bit. Today she is more comfortable. Still laying with her head back, ch vines her breakfast, exhausted.) Eyes Bilateral: positive: PERRL, EOMI ENT: positive: No signs of dehydration Neck: positive: No JVD. negative: Stiff neck Respiratory: positive: Rhonchi, Other (Still minimal air movement. Very quiet lungs.). negative: Wheezes, Rales Cardiovascular: positive: Regular rate & rhythm, Systolic murmur Abdomen: positive: Non-tender, No organomegaly, Nml bowel sounds Skin: positive: Warm, Dry Extremities: positive: Full ROM, No pedal edema Neurologic/Psychiatric: positive: Oriented x3, CN's nml (2-12). negative: Motor nml (Severe generalized weakness. But I think it may be more in terms of shortness of breath. Simple movement causes such tachypnea she does not want to move) - Lab Results Fish Bones: 08/27/22 05:37 08/27/22 05:37 Other Labs: Lab Results x24hrs 08/27/22 08/27/22 Range/Units 05:37 05:37 WBC 20.8 H (4.8-10.8) x10^3/uL RBC 3.46 L (4.20-5.40) 10^6/uL Hgb 10.6 L (12.0-16.0) g/dL Hct 34.4 L (37.0-47.0) % MCV 99.4 H (81.0-99.0) fL MCH 30.6 (27.0-31.0) pg MCHC 30.8 L (32.0-36.0) g/dL RDW 15.1 H (12.0-15.0) % Plt Count 217 (130-450) 10^3/uL MPV 9.5 (7.9-10.8) fL Neut # (Auto) Not Reportable Lymph # (Auto) Not Reportable [place] # (Auto) Not Reportable Eos # (Auto) Not Reportable Baso # (Auto) Not Reportable Absolute Nucleated RBC Not Reportable Total Counted 100 Band Neuts % (Manual) 8 (0 - 10) % Abnorm Lymph % (Manual) 0 % Nucleated RBC % Not Reportable Neutrophils # (Manual) 19.3 H (1.5-6.6) 10^3/uL Lymphocytes # (Manual) 1.5 (1.5-3.5) 10^3/uL Monocytes # (Manual) 0.0 (0.0-1.0) 10^3/uL Eosinophils # (Manual) 0.0 (0-0.7) 10^3/uL Basophils # (Manual) 0.0 (0-0.1) 10^3/uL Differential Comment MANUAL DIFFERENTIAL Platelet Estimate NORMAL (130-450,000) (NORMAL) RBC Morph Micro Appear NORMAL APPEARANCE (NORMAL) Sodium 141 (135-145) mmol/L Potassium 3.7 (3.5-5.0) mmol/L Chloride 108 (101-111) mmol/L Carbon Dioxide 28 (21-32) mmol/L Anion Gap 5.0 L (6-13) BUN 29 H (6-20) mg/dL Creatinine 0.4 (0.4-1.0) mg/dL Estimated GFR (MDRD) 152 (>89) Glucose 174 H (70-100) mg/dL Calcium 9.6 (8.5-10.3) mg/dL Assessment/Plan - Problem List (1) Acute respiratory failure with hypoxia Impression: Down to 2 L nasal cannula to saturate 94%. Blood pressure stable. Not tachycardic. Respiratory distress has diminished. She does not have to struggle as much to breathe or speak today. But she still significantly below her baseline from home. She is a full code. Plan: Continue current treatment of nebulizers, steroids, antibiotics. Solu- Medrol is 40 mg IV push 3 times a day for 6 doses. Change nebulizers to a fixed DuoNeb at 3 times a day. Continue Pulmicort and Perforomist 0.5 mg twice daily,singular 10 mg daily, Mucinex 600 mg p.o. twice daily. (2) COPD exacerbation Impression: Because of her respiratory failure. Plan is as a #1. She does not have a history of COPD in the past. She is a former smoker but quit smoking at the age of 31. I would recommend that she have formal pulmonary function studies with DLCO performed when she is stabilized from this current acute episode of care. (3) Coronavirus infection Impression: There is no definite bacterial consolidation of pneumonia on chest x-ray. She appears to have worsening interstitial changes. Most likely viral by history and exam and objective data. Nevertheless she is on empiric antibiotic therapy. Today is day #3 of azithromycin. She will have 3 days. Today is day #3 of Rocephin and she will have 5 days of that. (4) Immunocompromised state due to drug therapy Impression: Due to chronic methotrexate and chronic steroid therapy. MCV is normal. She does not list folic acid on her medication list. Plan: Methotrexate currently being held. Add folic acid to daily medication list Prednisone being given to help with inflammation from COPD exacerbation (5) Elevated troponin Impression: Laboratory Tests 08/25/22 08/25/22 08/26/22 16:37 17:44 01:56 Troponin I High Sens 240.1 H* 228.7 H* 194.5 H* 08/26/22 07:47 Troponin I High Sens 140.7 H* My suspicion is that of hypoxia causing demand ischemia. EKG is without changes. No treatment for NSTEMI at this time.
[2022-08-27] MEDS: MONTELUKAST 10 MG TABLET PO SCH (21:30)
[2022-08-28] MEDS: SODIUM CHLORIDE FLUSH 0.9% 10 ML SYRINGE IVP SCH ×4 (01:36→21:41)
[2022-08-28] MEDS: ZINC OXIDE 20% OINT 30 GM TUBE TOP PRN ×3 (01:36→10:11)
[2022-08-28] MEDS: SODIUM CHLORIDE 0.9% 1,000 ML IV SCH ×2 (03:40→20:28)
[2022-08-28 06:08] LABS: BASOPHILS % (AUTO) 0.2 %; HCT - HEMATOCRIT 34.6 % (37.0-47.0); HGB - HEMOGLOBIN 10.7 g/dL (12.0-16.0); LYMPHOCYTES % (AUTO) 5.4 %; MEAN CORPUSCULAR HEMOGLOBIN 30.6 pg (27.0-31.0); MEAN CORPUSCULAR HGB CONC 30.9 g/dL (32.0-36.0); MEAN CORPUSCULAR VOLUME 98.9 fL (81.0-99.0); MEAN PLATELET VOLUME 9.4 fL (7.9-10.8); MONOCYTES % (AUTO) 6.1 %; NEUTROPHILS % (AUTO) 87.5 %; PLT - PLATELET COUNT 271 10^3/uL (130-450); WHITE BLOOD COUNT 22.8 x10^3/uL (4.8-10.8)
[2022-08-28 06:12] LABS: ABNORMAL LYMPHS % (MANUAL) 0 %
[2022-08-28] MEDS: PANTOPRAZOLE 40 MG TABLET PO SCH (06:14)
[2022-08-28 06:16] LABS: CALCIUM 9.3 mg/dL (8.5-10.3); CREATININE 0.4 mg/dL (0.4-1.0); POTASSIUM 3.8 mmol/L (3.5-5.0)
[2022-08-28 06:38] LABS: BAND NEUTROPHILS % (MANUAL) 7 %; DIFFERENTIAL COMMENT MANUAL DIFFERENTIAL; LYMPHOCYTES # (MANUAL) 1.8 10^3/uL (1.5-3.5); LYMPHOCYTES % (MANUAL) 8 %; MONOCYTES # (MANUAL) 1.6 10^3/uL (0.0-1.0); NEUTROPHILS # (MANUAL) 19.4 10^3/uL (1.5-6.6); PLATELET ESTIMATE, MANUAL NORMAL (130-450,000) (NORMAL); RBC MORPHOLOGY (MULTIPLE) NORMAL APPEARANCE (NORMAL)
[2022-08-28] MEDS: IPRATROPIUM/ALBUTEROL 3 ML NEB INH SCH ×4 (07:21→20:53)
[2022-08-28] MEDS: BUDESONIDE 0.5 MG/2 ML NEB INH SCH ×2 (07:21→20:53)
[2022-08-28] MEDS: FORMOTEROL FUMARATE NEB 20 MCG/2 ML INH SCH ×2 (07:21→20:53)
[2022-08-28] MEDS: cefTRIAXone 1 GM in SODIUM CHLORIDE 0.9% MINIBAG 100 ML IV SCH (10:08)
[2022-08-28] MEDS: WHEAT DEXTRIN POWDER PACKET PO SCH (10:11)
[2022-08-28] MEDS: ENOXAPARIN 40 MG/0.4 ML SYRINGE SUBQ SCH (10:11)
[2022-08-28] MEDS: ASPIRIN EC 81 MG TABLET PO SCH (10:12)
[2022-08-28] MEDS: SACCHAROMYCES BOULARDII 250 MG CAPSULE PO SCH ×2 (10:12→17:30)
[2022-08-28] MEDS: guaiFENesin 600 MG TABLET PO SCH ×2 (10:12→21:41)
[2022-08-28] MEDS: FOLIC ACID 1 MG TABLET PO SCH (10:12)
[2022-08-28] MEDS: CALCIUM CARB (OYSTER SHELL) 500 MG TABLET PO SCH (10:12)
[2022-08-28] MEDS: MULTIVITAMIN TABLET PO SCH (10:12)
[2022-08-28] MEDS: PROPRANOLOL ER 80 MG CAPSULE PO SCH ×2 (10:12→21:41)
[2022-08-28] MEDS: AZITHROMYCIN INJ 500 MG in SODIUM CHLORIDE 0.9% 250 ML IV SCH (10:55)
[2022-08-28 13:24] LABS: ABG BASE EXCESS -2.1 mmol/L (-2.0-3.0); ABG HCO3 25.6 mmol/L (22.0-26.0); ABG OXYGEN SATURATION 94 % (94-98); ABG PCO2 58 mmHg (34-45); ABG PH 7.26 (7.35-7.45); ABG PO2 79 mmHg (80-100); ABG TCO2 27.3 MMOL/L (21.0-29.0); ALLEN TEST POSITIVE
[2022-08-28] MEDS: methylPREDNISolone SUCCINATE 40 MG/ML VIAL IVP SCH ×2 (13:41→21:41)
--- NOTE | 2022-08-28 16:51 | PROVIDER PROGRESS NOTE ---
Subjective - Prog Note Date Prog Note Date: 08/28/22 Prog Note Time: 16:17 - Subjective Pt reports feeling: No change Subjective: As the day has gone on, increased work of breathing, more tired. Respiratory therapy evaluated her and felt that she does not quite need BiPAP right now. But I have gone to reevaluate her and she is lethargic, tachypneic at rest, and back to using shoulder muscles and rib cage to breathe harder. She gets annoyed with the oxygen and she will take it off. Nursing will walk in and find her with an O2 sat in the 70s. Current Medications - Current Medications Current Medications: Active Medications Acetaminophen (Acetaminophen 325 Mg Tablet) 650 mg PO Q4HR PRN PRN Reason: Pain 1 to 4, or Fever Albuterol (Albuterol Neb 2.5 Mg/3 Ml) 2.5 mg INH Q2HR PRN PRN Reason: Wheezing Last Admin: 08/28/22 13:32 Dose: 2.5 mg Albuterol/Ipratropium (Ipratropium/Albuterol 3 Ml Neb) 3 ml INH RTQID [facility] Last Admin: 08/28/22 15:29 Dose: 3 ml Aspirin (Aspirin Ec 81 Mg Tablet) 81 mg PO DAILY [facility] Last Admin: 08/28/22 10:12 Dose: 81 mg Budesonide (Budesonide 0.5 Mg/2 Ml Neb) 0.5 mg INH RTBID [facility] Last Admin: 08/28/22 07:21 Dose: 0.5 mg Calcium Carbonate/Glycine (Calcium Carb (Oyster Shell) 500 Mg Tablet) 500 mg PO DAILY [facility] Last Admin: 08/28/22 10:12 Dose: 500 mg Enoxaparin Sodium (Enoxaparin 40 Mg/0.4 Ml Syringe) 40 mg SUBQ DAILY [facility] Last Admin: 08/28/22 10:11 Dose: 40 mg Folic Acid (Folic Acid 1 Mg Tablet) 1 mg PO DAILY [facility] Last Admin: 08/28/22 10:12 Dose: 1 mg Formoterol Fumarate (Formoterol Fumarate Neb 20 Mcg/2 Ml) 20 mcg INH RTBID [facility] Last Admin: 08/28/22 07:21 Dose: 20 mcg Guaifenesin (Guaifenesin 600 Mg Tablet) 600 mg PO BID [facility] Last Admin: 08/28/22 10:12 Dose: 600 mg Sodium Chloride (Normal Saline 0.9%) 1,000 mls @ 75 mls/hr IV .[id number] [facility] Last Admin: 08/28/22 03:40 Dose: 75 mls/hr Ceftriaxone Sodium 1 gm/ (Sodium Chloride) 100 mls @ 200 mls/hr IV DAILY [facility] Stop: 08/30/22 09:29 Last Infusion: 08/28/22 10:40 Dose: Infused Methylprednisolone (Methylprednisolone Succinate 40 Mg/Ml Vial) 40 mg IVP TID [facility] Last Admin: 08/28/22 13:41 Dose: 40 mg Montelukast Sodium (Montelukast 10 Mg Tablet) 10 mg PO QPM [facility] Last Admin: 08/27/22 21:30 Dose: 10 mg Multi-Ingredient Ointment (Zinc Oxide 20% Oint 30 Gm Tube) 1 applic TOP PRN PRN PRN Reason: Skin Care Last Admin: 08/28/22 10:11 Dose: 1 applic Multivitamins (Multivitamin Tablet) 1 tab PO DAILY [facility] Last Admin: 08/28/22 10:12 Dose: 1 tab Ondansetron HCl (Ondansetron Odt 4 Mg Tablet) 4 mg TL Q6HR PRN PRN Reason: Nausea / Vomiting Ondansetron HCl (Ondansetron 4 Mg/2 Ml Vial) 4 mg IVP Q6HR PRN PRN Reason: Nausea / Vomiting Pantoprazole Sodium (Pantoprazole 40 Mg Tablet) 40 mg PO QDAC [facility] Last Admin: 08/28/22 06:14 Dose: 40 mg Propranolol HCl (Propranolol Er 80 Mg Capsule) 80 mg PO BID [facility] Last Admin: 08/28/22 10:12 Dose: 80 mg Saccharomyces Boulardii (Saccharomyces Boulardii 250 Mg Capsule) 250 mg PO BIDWM [facility] Last Admin: 08/28/22 10:12 Dose: 250 mg Sodium Chloride (Sodium Chloride Flush 0.9% 10 Ml Syringe) 10 ml IVP PRN PRN PRN Reason: NEEDED PER PROVIDER ORDERS Sodium Chloride (Sodium Chloride Flush 0.9% 10 Ml Syringe) 10 ml IVP 0 100,0900,1700 [facility] Last Admin: 08/28/22 10:13 Dose: Not Given Wheat Dextrin (Wheat Dextrin Powder Packet) 1 packet PO DAILY [facility] Last Admin: 08/28/22 10:11 Dose: 1 packet predniSONE [Deltasone] 5 mg PO DAILY 12/20/12 Propranolol ER [Inderal LA] 80 mg PO BID 03/02/17 Methotrexate Sodium/Pf [Methotrexate 50 mg/2 ml Vial] 25 mg SUBQ MO 07/07/19 Objective - Vital Signs/Intake & Output Reviewed Vital Signs: Yes Vital Signs: Vital Signs x48h Temp Pulse Pulse Resp BP Pulse Ox O2 Flow Rate 08/28/22 15:30 78 22 5 08/28/22 15:20 36.4 C L 68 28 H 145/65 H 91 L 5 08/28/22 13:53 30 H 93 5 08/28/22 13:33 80 22 5 08/28/22 11:45 36.3 C L 74 26 H 163/63 H 94 3 08/28/22 11:17 74 18 08/28/22 10:55 88 L 1 08/28/22 10:15 93 2 08/28/22 10:05 88 L 1 08/28/22 10:00 85 L Intake & Output: Intake & Output 08/25/22 08/26/22 08/27/22 08/28/22 23:59 23:59 23:59 23:59 Intake Total 1050 1770 4316.25 1675 Output Total 300 350 100 Balance 1050 1470 3966.25 1575 - Objective General Appearance: positive: Lethargic (this is 4:54 pm after watching her off and on today. cachectic, open mouth breathing) Eyes Bilateral: positive: PERRL, EOMI ENT: positive: Dry mucous membranes (from open mouth breathing) Neck: positive: No JVD. negative: Stiff neck Respiratory: positive: Wheezes (faint, but almost no air movement) Cardiovascular: positive: Regular rate & rhythm, Systolic murmur Abdomen: negative: Non-tender, No organomegaly, Nml bowel sounds, No distention Skin: positive: Warm, Dry Extremities: positive: Full ROM, No pedal edema Neurologic/Psychiatric: positive: CN's nml (2-12), Motor nml, Disoriented to place, Disoriented to time - Lab Results Fish Bones: 08/28/22 05:47 08/28/22 05:47 Other Labs: Lab Results x24hrs 08/28/22 08/28/22 08/28/22 Range/Units 13:15 05:47 05:47 WBC 22.8 H (4.8-10.8) x10^3/uL RBC 3.50 L (4.20-5.40) 10^6/uL Hgb 10.7 L (12.0-16.0) g/dL Hct 34.6 L (37.0-47.0) % MCV 98.9 (81.0-99.0) fL MCH 30.6 (27.0-31.0) pg MCHC 30.9 L (32.0-36.0) g/dL RDW 15.0 (12.0-15.0) % Plt Count 271 (130-450) 10^3/uL MPV 9.4 (7.9-10.8) fL Neut # (Auto) Not Reportable Lymph # (Auto) Not Reportable [place] # (Auto) Not Reportable Eos # (Auto) Not Reportable Baso # (Auto) Not Reportable Absolute Nucleated RBC Not Reportable Total Counted 100 Band Neuts % (Manual) 7 (0 - 10) % Abnorm Lymph % (Manual) 0 % Nucleated RBC % Not Reportable Neutrophils # (Manual) 19.4 H (1.5-6.6) 10^3/uL Lymphocytes # (Manual) 1.8 (1.5-3.5) 10^3/uL Monocytes # (Manual) 1.6 H (0.0-1.0) 10^3/uL Eosinophils # (Manual) 0.0 (0-0.7) 10^3/uL Basophils # (Manual) 0.0 (0-0.1) 10^3/uL Differential Comment MANUAL DIFFERENTIAL Platelet Estimate NORMAL (130-450,000) (NORMAL) RBC Morph Micro Appear NORMAL APPEARANCE (NORMAL) Bld Gas Analysis Time 1322 Sample Site RIGHT RADIAL ABG pH 7.26 L (7.35-7.45) ABG pCO2 58 H (34-45) mmHg ABG pO2 79 L (80-100) mmHg ABG HCO3 25.6 (22.0-26.0) mmol/L ABG Total CO2 27.3 (21.0-29.0) MMOL/L ABG O2 Saturation 94 (94-98) % ABG Base Excess -2.1 L (-2.0-3.0) mmol/L [place] Test POSITIVE O2 Delivery Device NASAL CANNULA O2 Liters/Min 5.00 LPM Sodium 140 (135-145) mmol/L Potassium 3.8 (3.5-5.0) mmol/L Chloride 108 (101-111) mmol/L Carbon Dioxide 27 (21-32) mmol/L Anion Gap 5.0 L (6-13) BUN 26 H (6-20) mg/dL Creatinine 0.4 (0.4-1.0) mg/dL Estimated GFR (MDRD) 152 (>89) Glucose 140 H (70-100) mg/dL Calcium 9.3 (8.5-10.3) mg/dL Assessment/Plan - Problem List (1) Acute respiratory failure with hypoxia Impression: She was down to 1 L nasal cannula early this morning. That is the afternoon has gone on, she has increased work of breathing, and is now up to 5 L nasal cannula to maintain her O2 sats at 91 to 93%. The only thing that I have done differently in her management is stop her steroids after 4 doses. She still on nebulizers, antibiotics. We did a blood gas as she started deteriorating earlier this afternoon and pH was 7.26, PCO2 58, PO2 79 with a base excess of - 2.1. Again on 5 L nasal cannula. 3-1/2 hours later I reexamined her and she is even more lethargic, using shoulders and rib cage to breathe harder. Getting more tachypneic. Plan: She is a full code. I will transfer her to ICU. Continue current treatment of nebulizers, antibiotics. Solu-Medrol was 40 mg IV push 3 times a day for 6 doses. Finsihed yesterday. On fixed DuoNeb schedule at 3 times a day. Continue Pulmicort and Perforomist 0.5 mg twice daily,singular 10 mg daily, Mucinex 600 mg p.o. twice daily. Resume steroids 40 mg IV push 3 times daily. BiPAP if she can't turn around (2) COPD exacerbation Impression: Because of her respiratory failure. Plan is as a #1. She does not have a history of COPD in the past. She is a former smoker but quit smoking at the age of 31. I would recommend that she have formal pulmonary function studies with DLCO performed when she is stabilized from this current acute episode of care. (3) Coronavirus infection Impression: There is no definite bacterial consolidation of pneumonia on chest x-ray. She appears to have worsening interstitial changes. Most likely viral by history and exam and objective data. Nevertheless she is on empiric antibiotic therapy. She finished 3 days of IV azithromycin yesterday. Today is day #4 of Rocephin and she will have 5 days of that. (4) Immunocompromised state due to drug therapy Impression: Due to chronic methotrexate and chronic steroid therapy. MCV is normal. She does not list folic acid on her medication list. Plan: Methotrexate currently being held. Add folic acid to daily medication list Prednisone being given to help with inflammation from COPD exacerbation (5) Elevated troponin Impression: Laboratory Tests 08/25/22 08/25/22 08/26/22 16:37 17:44 01:56 Troponin I High Sens 240.1 H* 228.7 H* 194.5 H* 08/26/22 07:47 Troponin I High Sens 140.7 H* My suspicion is that of hypoxia causing demand ischemia. EKG is without changes. No treatment for NSTEMI at this time.
[2022-08-28] MEDS: MONTELUKAST 10 MG TABLET PO SCH (21:41)
[2022-08-29] MEDS: ZINC OXIDE 20% OINT 30 GM TUBE TOP PRN (00:40)
[2022-08-29] MEDS: methylPREDNISolone SUCCINATE 40 MG/ML VIAL IVP SCH ×3 (06:20→22:08)
[2022-08-29] MEDS: SODIUM CHLORIDE FLUSH 0.9% 10 ML SYRINGE IVP PRN (06:20)
[2022-08-29] MEDS: FORMOTEROL FUMARATE NEB 20 MCG/2 ML INH SCH ×2 (07:26→21:10)
[2022-08-29] MEDS: BUDESONIDE 0.5 MG/2 ML NEB INH SCH ×2 (07:26→21:10)
[2022-08-29] MEDS: IPRATROPIUM/ALBUTEROL 3 ML NEB INH SCH ×4 (07:26→21:09)
[2022-08-29 07:30] LABS: ABG HCO3 35.4 mmol/L (22.0-26.0); ABG PH 7.34 (7.35-7.45)
[2022-08-29 07:33] LABS: ABG PCO2 66 mmHg (34-45)
[2022-08-29 07:34] LABS: ABG OXYGEN SATURATION 72 % (94-98); ABG PO2 42 mmHg (80-100)
[2022-08-29] MEDS ORDERED: ROCURONIUM 50 MG/5 ML VIAL ONE (07:58)
[2022-08-29] MEDS ORDERED: PROPOFOL 200 MG/20 ML VIAL IVP ONE (07:59)
--- NOTE | 2022-08-29 09:04 | ANESTHESIA PROCEDURE NOTE ---
Anesth Central Line Template - Central Line Central Line Preparation: Unable to obtain consent, Time out completed, Ultra sound used, Sterile prep and drape Central line location: Right IJ Central line type: Triple lumen Central line catheter tip site resides: Superior vena cava (SVC) Central line aftercare: Chlorhexidine disc placed, Secured, Placement confirmed, No pneumothorax, No complications, Bundle checklist complete, Pt tolerated well, Other (threaded to 16 and sutured. 3 caps easily aspirate, flush.)
--- NOTE | 2022-08-29 09:05 | ANESTHESIA PROCEDURE NOTE ---
Anesthesia Intubation Template - Intubation Blade: positive: Glidescope Tube: Size-enter number (7.5), Cuffed, Marked at teeth-enter cm (22) Route: Oral Placement Confirmation: End tidal CO2, Direct visualization, Bilateral breath sounds Complications: No complications (Propfol 40mg IV, Rocuronium 40mg IV)
--- NOTE | 2022-08-29 09:07 | ANESTHESIA PROCEDURE NOTE ---
Diagnosis: Intubation ABGs, decreased LOC Procedure: R radial arterial line placement Height and Weight: Height 5 ft 5 in Weight (kg) 45.5 kg Body Mass Index 16.7 Vital Signs: Temp Pulse Resp BP Pulse Ox O2 Flow Rate 36.6 C 67 20 138/49 H 98 35 08/29/22 07:30 08/29/22 08:50 08/29/22 08:50 08/29/22 08:50 08/29/22 08:50 08/29/22 07:27 Allergies meperidine HCl * [From Demerol] Adverse Reaction (Unknown, Verified 08/25/22 15:36) Hallucinations morphine Adverse Reaction (Unknown, Verified 08/25/22 15:36) Dizziness Penicillins Adverse Reaction (Unknown, Verified 08/25/22 15:36) Rash Sulfa (Sulfonamide Antibiotics) Adverse Reaction (Unknown, Verified 08/25/22 15:36) Rash tetracycline Adverse Reaction (Unknown, Verified 08/25/22 15:36) Rash ASA classification: 4-Incapacitating disease Is this case an emergency?: Yes Anes. Monitoring and Equipment: Non-invasive BP, Pulse oximetery, Central venous catheter, All ports aspirate blood, Sterile prep and drape Anes. Procedure Start Time: 08:15 Anes. Procedure Stop Time: 08:22 Procedure Notes: 22 ga R radial A-line placed after sterile prep drape. Good waveform after plcement, flush, zeroing. Secured with multiple tegaderm. Pt unresponsive during procedure.
[2022-08-29 09:25] LABS: ABG BASE EXCESS 4.3 mmol/L (-2.0-3.0); ABG HCO3 30.3 mmol/L (22.0-26.0); ABG OXYGEN SATURATION 99 % (94-98); ABG PCO2 52 mmHg (34-45); ABG PH 7.38 (7.35-7.45); ABG TCO2 31.9 MMOL/L (21.0-29.0)
[2022-08-29 09:26] LABS: ABG MODE OF VENTILATION ASSIST/CONTROL; ABG RESPIRATORY RATE 20 b/min
--- NOTE | 2022-08-29 09:31 | PROVIDER PROGRESS NOTE ---
Subjective - Prog Note Date Prog Note Date: 08/29/22 Prog Note Time: 09:29 - Subjective Subjective: Yesterday she was having increased work of breathing, more tachypnea, but seem to be maintaining O2 sats. A blood gas yesterday was 7.26, PCO2 58, PO2 79 on 5 L nasal cannula. I resumed her steroids, and continued her nebulizers, long- acting bronchodilators, and antibiotics. Overnight she slowly deteriorated again. This morning I came in to find her guppy breathing. Struggling to breathe. Repeat blood gas had a pH of 7.34, PCO2 66, PO2 42 on 35% high flow nasal cannula. Her objective blood gases did not show the severity of her respiratory status with clinical exam. As I watched her for the next 20 to 30 minutes, trying to improve somnolence, she started bradying down. She started getting into the 50s. Guppy breathing increased. And as such I had anesthesia consult. Anesthesia was able to intubate easily. He states that she did not even require any induction, she was so sedated he slid in the intubation to without sedation. We have also put in a central line and an art line. Repeat blood gases with intubation so pH is 7.383, PCO2 52, and a PO2 of 183.8. We tried calling her last night. Several times before 7 PM. I do not know if nursing tried after that. This morning we tried calling him in the gang sawyer hours and again no answer at his phone. He showed up at the hospital around 9:15 AM. So we were able to update Current Medications - Current Medications Current Medications: Active Medications Acetaminophen (Acetaminophen 325 Mg Tablet) 650 mg PO Q4HR PRN PRN Reason: Pain 1 to 4, or Fever Last Admin: 08/28/22 21:41 Dose: 650 mg Albuterol (Albuterol Neb 2.5 Mg/3 Ml) 2.5 mg INH Q2HR PRN PRN Reason: Wheezing Last Admin: 08/28/22 13:32 Dose: 2.5 mg Albuterol/Ipratropium (Ipratropium/Albuterol 3 Ml Neb) 3 ml INH RTQID [facility] Last Admin: 08/29/22 07:26 Dose: 3 ml Aspirin (Aspirin Ec 81 Mg Tablet) 81 mg PO DAILY [facility] Last Admin: 08/29/22 10:13 Dose: Not Given Budesonide (Budesonide 0.5 Mg/2 Ml Neb) 0.5 mg INH RTBID [facility] Last Admin: 08/29/22 07:26 Dose: 0.5 mg Calcium Carbonate/Glycine (Calcium Carb (Oyster Shell) 500 Mg Tablet) 500 mg PO DAILY [facility] Last Admin: 08/29/22 10:13 Dose: Not Given Enoxaparin Sodium (Enoxaparin 40 Mg/0.4 Ml Syringe) 40 mg SUBQ DAILY [facility] Last Admin: 08/29/22 10:13 Dose: 40 mg Folic Acid (Folic Acid 1 Mg Tablet) 1 mg PO DAILY [facility] Last Admin: 08/29/22 10:13 Dose: Not Given Formoterol Fumarate (Formoterol Fumarate Neb 20 Mcg/2 Ml) 20 mcg INH RTBID [facility] Last Admin: 08/29/22 07:26 Dose: 20 mcg Guaifenesin (Guaifenesin 600 Mg Tablet) 600 mg PO BID [facility] Last Admin: 08/29/22 10:14 Dose: Not Given Sodium Chloride (Normal Saline 0.9%) 1,000 mls @ 75 mls/hr IV .[id number] [facility] Last Admin: 08/29/22 10:12 Dose: 75 mls/hr Ceftriaxone Sodium 1 gm/ (Sodium Chloride) 100 mls @ 200 mls/hr IV DAILY [facility] Stop: 08/30/22 09:29 Last Infusion: 08/29/22 10:46 Dose: Infused Methylprednisolone (Methylprednisolone Succinate 40 Mg/Ml Vial) 40 mg IVP TID [facility] Last Admin: 08/29/22 06:20 Dose: 40 mg Montelukast Sodium (Montelukast 10 Mg Tablet) 10 mg PO QPM [facility] Last Admin: 08/28/22 21:41 Dose: 10 mg Multi-Ingredient Ointment (Zinc Oxide 20% Oint 30 Gm Tube) 1 applic TOP PRN PRN PRN Reason: Skin Care Last Admin: 08/29/22 00:40 Dose: 1 applic Multivitamins (Multivitamin Tablet) 1 tab PO DAILY [facility] Last Admin: 08/29/22 10:14 Dose: Not Given Ondansetron HCl (Ondansetron Odt 4 Mg Tablet) 4 mg TL Q6HR PRN PRN Reason: Nausea / Vomiting Ondansetron HCl (Ondansetron 4 Mg/2 Ml Vial) 4 mg IVP Q6HR PRN PRN Reason: Nausea / Vomiting Pantoprazole Sodium (Pantoprazole 40 Mg Tablet) 40 mg PO QDAC [facility] Last Admin: 08/29/22 10:12 Dose: Not Given Propranolol HCl (Propranolol Er 80 Mg Capsule) 80 mg PO BID [facility] Last Admin: 08/29/22 10:14 Dose: Not Given Saccharomyces Boulardii (Saccharomyces Boulardii 250 Mg Capsule) 250 mg PO BIDWM [facility] Last Admin: 08/29/22 10:12 Dose: Not Given Sodium Chloride (Sodium Chloride Flush 0.9% 10 Ml Syringe) 10 ml IVP PRN PRN PRN Reason: NEEDED PER PROVIDER ORDERS Last Admin: 08/29/22 06:20 Dose: 10 ml Sodium Chloride (Sodium Chloride Flush 0.9% 10 Ml Syringe) 10 ml IVP 0100,0900,1700 [facility] Last Admin: 08/29/22 10:14 Dose: 10 ml Wheat Dextrin (Wheat Dextrin Powder Packet) 1 packet PO DAILY [facility] Last Admin: 08/29/22 10:14 Dose: Not Given predniSONE [Deltasone] 5 mg PO DAILY 12/20/12 Propranolol ER [Inderal LA] 80 mg PO BID 03/02/17 Methotrexate Sodium/Pf [Methotrexate 50 mg/2 ml Vial] 25 mg SUBQ MO 07/07/19 Objective - Vital Signs/Intake & Output Reviewed Vital Signs: Yes Vital Signs: Vital Signs Temp Pulse Pulse Resp BP BP Pulse Ox 08/29/22 09:00 71 20 121/95 H 164/63 H 91 L 08/29/22 08:50 67 20 138/49 H 138/42 H 98 08/29/22 08:40 68 20 146/58 H 150/45 H 98 08/29/22 08:33 70 08/29/22 08:25 70 20 131/49 H 162/59 H 100 08/29/22 08:10 61 30 H 158/81 H 96 08/29/22 07:55 59 L 25 H 141/53 H 100 08/29/22 07:45 66 28 H 167/66 H 88 L 08/29/22 07:35 59 L 36 H 163/61 H 90 L 08/29/22 07:30 36.6 C 61 33 H 175/72 H 90 L 08/29/22 07:27 66 37 H 08/29/22 07:00 30 H 183/65 H 93 08/29/22 06:00 52 L 34 H 170/84 H 91 L 08/29/22 05:30 O2 Flow Rate 08/29/22 09:00 08/29/22 08:50 08/29/22 08:40 08/29/22 08:33 08/29/22 08:25 08/29/22 08:10 08/29/22 07:55 08/29/22 07:45 08/29/22 07:35 08/29/22 07:30 08/29/22 07:27 35 08/29/22 07:00 08/29/22 06:00 08/29/22 05:30 35 Intake & Output: Intake & Output 08/26/22 08/27/22 08/28/22 08/29/22 23:59 23:59 23:59 23:59 Intake Total 1770 4316.25 3011.25 561.25 Output Total 300 350 100 200 Balance 1470 3966.25 2911.25 361.25 - Objective General Appearance: positive: Other (Unresponsive to deep sternal rub, head back, mouth open breathing, shallow almost no air movement before intubation) Eyes Bilateral: positive: PERRL, EOMI ENT: positive: Dry mucous membranes (From mouth open breathing) Neck: positive: No JVD. negative: Stiff neck Respiratory: positive: Other (Moving her chest wall, guppy breathing, and no air movement heard). negative: Wheezes, Rales, Rhonchi Cardiovascular: positive: Regular rate & rhythm, Bradycardia Abdomen: positive: Non-tender, No organomegaly, Nml bowel sounds, No distention Skin: positive: Warm, Dry, Pallor Extremities: positive: Full ROM, No pedal edema Neurologic/Psychiatric: positive: CN's nml (2-12), Motor nml, Other (Between yesterday to today, complete loss of consciousness. Unresponsive. She has been slowly deteriorating with regards to alertness over the last 72 hours. Yesterday was a noticeable decline and today completely unresponsive with near respiratory arrest) - Lab Results Fish Bones: 08/28/22 05:47 08/28/22 05:47 Other Labs: Lab Results x24hrs 08/29/22 08/28/2208/28/23 Range/Units 07:15 21:58 13:15 Bld Gas Analysis Time 723 1322 Sample Site LEFT BRACHIAL RIGHT RADIAL ABG pH 7.34 L 7.26 L (7.35-7.45) ABG pCO2 66 H* 58 H (34-45) mmHg ABG pO2 42 L* 79 L (80-100) mmHg ABG HCO3 35.4 H 25.6 (22.0-26.0) mmol/L ABG Total CO2 37.0 H 27.3 (21.0-29.0) MMOL/L ABG O2 Saturation 72 L* 94 (94-98) % ABG Base Excess 10.0 H -2.1 L (-2.0-3.0) mmol/L [place]den Test NOT APPLICABLE POSITIVE O2 Delivery Device [facility] NASAL CANNULA O2 Liters/Min 35.00 5.00 LPM FiO2 35.00 Nasal Screen MRSA (PCR) NEGATIVE (NEGATIVE) Assessment/Plan - Problem List (1) Acute respiratory failure with hypoxia Impression: Yesterday she did not require beyond 1 L of nasal cannula. But as the day went on she had increased work of breathing, and was up to 5 L nasal cannula when I left last night. She is maintaining O2 sats at 91 to 93%. We did a blood gas because I was worried about her increased work of breathing and she appeared to be acceptable PCO2 but her pH was worsening. I moved her to the ICU. At that time respiratory and I felt that putting her on BiPAP was not yet necessary. She also had a tendency to take off her nasal cannula oxygen. I was hoping that the one-to-one nursing care would keep her oxygen on and monitor her more closely. Overnight she did not do well. And this morning she was at a near res piratory arrest. She is a full code. As such I called anesthesia colleagues in the were able to intubate her, put in a central line, put in an art line. Repeat chest x-ray shows an increasing pneumonia. This is most likely the cause of her respiratory failure. This is in spite of being on antibiotics since admission. Greater than 30 minutes of care provided this morning. Plan: She is a full code. Not requiring pressors. Continue current treatment of nebulizers, antibiotics. Solu-Medrol 40 mg IV push 3 times a day was given for 6 doses and completed gang sawyer August 28. I resumed those the evening of August 28.. On fixed DuoNeb schedule at 3 times a day. Continue Pulmicort and Perforomist 0.5 mg twice daily,singular 10 mg daily, Mucinex 600 mg p.o. twice daily. (2) COPD exacerbation Impression: Because of her respiratory failure. Plan is as a #1. She does not have a history of COPD in the past. She is a former smoker but quit smoking at the age of 31. I would recommend that she have formal pulmonary function studies with DLCO performed when she is stabilized from this current acute episode of care. (3) Coronavirus infection/pneumonia Impression: Today's chest x-ray after line placement and NG tube placement shows her to have an evolving pneumonia. She appears to have worsening interstitial changes. She has been on empiric antibiotics since admission. She finished 3 days of IV azithromycin August 27. Today is day #5 of Rocephin And I planned on giving her 5 days only. However because pneumonia has progressed on antibiotics, and she is immunocompromised, I will broaden coverage to cefepime 2 g every 8 hours. Send another sputum for culture. It was sent 08/28 but today I can get a better specimen thru ET tube. (4) Immunocompromised state due to drug therapy Impression: Due to chronic methotrexate and chronic steroid therapy. MCV is normal. She does not list folic acid on her medication list. Plan: Methotrexate currently being held. Add folic acid to daily medication list Prednisone being given to help with inflammation from COPD exacerbation (5) Elevated troponin Impression: Laboratory Tests 08/25/22 08/25/22 08/26/22 16:37 17:44 01:56 Troponin I High Sens 240.1 H* 228.7 H* 194.5 H* 08/26/22 07:47 Troponin I High Sens 140.7 H* My suspicion is that of hypoxia causing demand ischemia. EKG is without changes. No treatment for NSTEMI at this time. (6) Severe protein calorie malnutrition. On examination she has significant muscle wasting, loss of subcutaneous fat. She has had less than 50% recommended intake for 2 weeks or more. And she is lost 50 pounds in the last 3 months. It looks like she has lost 33% of her body weight by looking at the medical record. Plan: Nutrition services has been working with her trying to encourage p.o. intake. Ensure. She was exhausted the last few days and not eating very much. I will place an NG tube and start tube feedings as managed by nutrition services
--- NOTE | 2022-08-29 09:40 | XRAY Report ---
PROCEDURE: Chest for Line Placement INDICATIONS: increasing resp failure and obtundation TECHNIQUE: One view of the chest was acquired. COMPARISON: Chest x-ray 08/25/2022 FINDINGS: Surgical changes and devices: Endotracheal tube is approximately 1 cm compared to the nicole. Right- sided central venous catheters overlying the thoracic spine. Patient is rotated. Lungs and pleura: Increasing consolidative appearance of opacities within the right base and retroca rdiac regions compared to prior exam. Mediastinum: Mediastinal contours appear normal. Heart size is enlarged. Bones and chest wall: No suspicious bony lesions. Overlying soft tissues appear unremarkable. IMPRESSION: Increasing bibasilar/retrocardiac opacity suspicious for developing pneumonia. Underlying areas of ed jcarlos and/or atelectasis cannot be excluded. Support lines as above. Secondary to rotation, right-sided catheter cannot be confirmed to be venous placement. Reviewed by: Sheryl Le MD on 08/29/2022 9:39 AM PDT Approved by: Sheryl Le MD on 08/29/2022 9:39 AM PDT Station ID: [id number]
[2022-08-29] MEDS ORDERED: PROPOFOL 1000 MG/100 ML 1,000 MG/100 ML BOTTLE IV ONE (09:45)
[2022-08-29 09:48] LABS: ABG PO2 184 mmHg (80-100)
[2022-08-29] MEDS: PROPOFOL 1000 MG/100 ML 1,000 MG/100 ML BOTTLE IV SCH (09:50)
[2022-08-29] MEDS: SACCHAROMYCES BOULARDII 250 MG CAPSULE PO SCH ×2 (10:12→17:22)
[2022-08-29] MEDS: PANTOPRAZOLE 40 MG TABLET PO SCH (10:12)
[2022-08-29] MEDS: SODIUM CHLORIDE 0.9% 1,000 ML IV SCH ×2 (10:12→23:02)
[2022-08-29] MEDS: ENOXAPARIN 40 MG/0.4 ML SYRINGE SUBQ SCH (10:13)
[2022-08-29] MEDS: CALCIUM CARB (OYSTER SHELL) 500 MG TABLET PO SCH (10:13)
[2022-08-29] MEDS: FOLIC ACID 1 MG TABLET PO SCH (10:13)
[2022-08-29] MEDS: ASPIRIN EC 81 MG TABLET PO SCH (10:13)
[2022-08-29] MEDS: cefTRIAXone 1 GM in SODIUM CHLORIDE 0.9% MINIBAG 100 ML IV SCH (10:13)
[2022-08-29] MEDS: PROPRANOLOL ER 80 MG CAPSULE PO SCH ×2 (10:14→20:40)
[2022-08-29] MEDS: WHEAT DEXTRIN POWDER PACKET PO SCH (10:14)
[2022-08-29] MEDS: guaiFENesin 600 MG TABLET PO SCH ×2 (10:14→20:40)
[2022-08-29] MEDS: MULTIVITAMIN TABLET PO SCH (10:14)
[2022-08-29] MEDS: SODIUM CHLORIDE FLUSH 0.9% 10 ML SYRINGE IVP SCH ×2 (10:14→17:23)
[2022-08-29 11:34] LABS: BILIRUBIN,URINE NEGATIVE (NEGATIVE); GLUCOSE, URINE (UA) NEGATIVE (NEGATIVE); KETONES,URINE (UA) 15 mg/dL (NEGATIVE); LEUKOCYTE ESTERASE, URINE SMALL (NEGATIVE); NITRITE,URINE POSITIVE (NEGATIVE); OCCULT BLOOD,URINE LARGE (NEGATIVE); PROTEIN,URINE TRACE mg/dL (NEGATIVE); UROBILINOGEN,URINE 0.2 (NORMAL) E.U./dL (NORMAL)
[2022-08-29 11:43] LABS: BACTERIA,URINE Few /HPF (None Seen); CLARITY,URINE TURBID (CLEAR); SQUAMOUS EPITHELIAL CELL,UR MANY Squamous (<= Few)
--- NOTE | 2022-08-29 11:46 | XRAY Report ---
PROCEDURE: Chest 1 View X-Ray INDICATIONS: OETT,IJ CVC,NGT placement TECHNIQUE: One view of the chest was acquired. COMPARISON: Same-day radiograph FINDINGS: Surgical changes and devices: ET tube terminates in the lower trachea. A central line terminates in the SVC. An enteric tube terminates in the stomach. There are a few overlapping catheters that make e valuation limited. Lungs and pleura: Mild to moderate diffuse lung disease, particularly in the retrocardiac region. Po ssible trace effusions. Mediastinum: Mediastinal contours appear normal. Heart size is normal. Bones and chest wall: No suspicious bony lesions. Overlying soft tissues appear unremarkable. IMPRESSION: Likely normal positioning of life support lines as above. ET tube is in the lower trachea, consider f uture reevaluation with more extended positioning of the head/neck. Evaluation is limited by patient positioning and overlapping external devices. Mild to moderate diffuse lung disease and possible trace effusions. Consider future imaging surveilla nce to assess for resolution. Reviewed by: Louis Smith MD on 08/29/2022 11:44 AM PDT Approved by: Louis Smith MD on 08/29/2022 11:44 AM PDT Station ID: [id number]
[2022-08-29 11:53] LABS: BASOPHILS # (AUTO) 0.1 10^3/uL (0.0-0.1); BASOPHILS % (AUTO) 0.3 %; HCT - HEMATOCRIT 32.3 % (37.0-47.0); HGB - HEMOGLOBIN 10.4 g/dL (12.0-16.0); LYMPHOCYTES # (AUTO) 0.9 10^3/uL (1.5-3.5); MEAN CORPUSCULAR HGB CONC 32.2 g/dL (32.0-36.0); MEAN CORPUSCULAR VOLUME 96.1 fL (81.0-99.0); MEAN PLATELET VOLUME 9.1 fL (7.9-10.8); MONOCYTES # (AUTO) 1.1 10^3/uL (0.0-1.0); MONOCYTES % (AUTO) 7.4 %; NEUTROPHILS # (AUTO) 12.7 10^3/uL (1.5-6.6); PLT - PLATELET COUNT 268 10^3/uL (130-450); RED BLOOD COUNT 3.36 10^6/uL (4.20-5.40); RED CELL DISTRIBUTION WIDTH 14.9 % (12.0-15.0); WHITE BLOOD COUNT 14.9 x10^3/uL (4.8-10.8)
[2022-08-29 12:04] LABS: CALCIUM 8.6 mg/dL (8.5-10.3); CREATININE 0.3 mg/dL (0.4-1.0); POTASSIUM 3.8 mmol/L (3.5-5.0)
[2022-08-29 12:09] LABS: CALCIUM, IONIZED 1.22 mmol/L (1.15-1.33); VBG PH 7.471 (7.31-7.41)
[2022-08-29 13:17] LABS: PHOSPHORUS 1.7 mg/dL (2.5-4.6)
[2022-08-29] MEDS ORDERED: POTASSIUM PHOSPHATE 15 MMOL in SODIUM CHLORIDE 0.9% 250 ML IV ONE ×2 (14:30→22:06)
[2022-08-29] MEDS: MONTELUKAST 10 MG TABLET PO SCH (20:40)
[2022-08-29] MEDS ORDERED: SODIUM CHLORIDE 0.9% 1,000 ML IV ONE (21:27)
[2022-08-29 21:44] LABS: VBG PH 7.511 (7.31-7.41)
[2022-08-29 21:45] LABS: CALCIUM, IONIZED 1.18 mmol/L (1.15-1.33)
[2022-08-29 21:55] LABS: POTASSIUM 3.7 mmol/L (3.5-5.0)
[2022-08-29] MEDS ORDERED: POTASSIUM CHLOR 20 MEQ/100 ML 20 MEQ/100 ML BAG IV ONE (22:46)
[2022-08-30] MEDS: SODIUM CHLORIDE FLUSH 0.9% 10 ML SYRINGE IVP SCH ×3 (00:19→16:31)
[2022-08-30] MEDS: PROPOFOL 1000 MG/100 ML 1,000 MG/100 ML BOTTLE IV SCH ×2 (00:19→13:16)
[2022-08-30 04:34] LABS: BASOPHILS % (AUTO) 0.2 %; HCT - HEMATOCRIT 27.7 % (37.0-47.0); HGB - HEMOGLOBIN 8.7 g/dL (12.0-16.0); LYMPHOCYTES % (AUTO) 7.9 %; MEAN CORPUSCULAR HEMOGLOBIN 30.4 pg (27.0-31.0); MEAN CORPUSCULAR HGB CONC 31.4 g/dL (32.0-36.0); MEAN CORPUSCULAR VOLUME 96.9 fL (81.0-99.0); MEAN PLATELET VOLUME 9.4 fL (7.9-10.8); MONOCYTES % (AUTO) 7.2 %; NEUTROPHILS % (AUTO) 82.8 %; PLT - PLATELET COUNT 203 10^3/uL (130-450); RED BLOOD COUNT 2.86 10^6/uL (4.20-5.40); RED CELL DISTRIBUTION WIDTH 14.9 % (12.0-15.0); WHITE BLOOD COUNT 9.8 x10^3/uL (4.8-10.8)
[2022-08-30 04:35] LABS: CALCIUM, IONIZED 1.2 mmol/L (1.15-1.33); VBG PH 7.456 (7.31-7.41)
[2022-08-30 04:45] LABS: ABNORMAL LYMPHS % (MANUAL) 0 %
[2022-08-30 04:49] LABS: MAGNESIUM 1.9 mg/dL (1.7-2.8); PHOSPHORUS 2.1 mg/dL (2.5-4.6)
[2022-08-30 04:50] LABS: BAND NEUTROPHILS % (MANUAL) 2 %; CALCIUM 8.2 mg/dL (8.5-10.3); CREATININE 0.4 mg/dL (0.4-1.0); DIFFERENTIAL COMMENT MANUAL DIFFERENTIAL; LYMPHOCYTES # (MANUAL) 0.8 10^3/uL (1.5-3.5); LYMPHOCYTES % (MANUAL) 8 %; MONOCYTES # (MANUAL) 0.2 10^3/uL (0.0-1.0); MYELOCYTES % (MANUAL) 1 %; NEUTROPHILS # (MANUAL) 8.7 10^3/uL (1.5-6.6); PLATELET ESTIMATE, MANUAL NORMAL (130-450,000) (NORMAL); PLATELET MORPHOLOGY NORMAL APPEARANCE (NORMAL); POTASSIUM 3.9 mmol/L (3.5-5.0); RBC MORPHOLOGY (MULTIPLE) NORMAL APPEARANCE (NORMAL); WBC MORPHOLOGY (MULTIPLE) NORMAL APPEARANCE (NORMAL)
[2022-08-30] MEDS: methylPREDNISolone SUCCINATE 40 MG/ML VIAL IVP SCH ×4 (06:08→22:06)
[2022-08-30] MEDS: ZINC OXIDE 20% OINT 30 GM TUBE TOP PRN ×2 (06:08→20:44)
[2022-08-30] MEDS: BUDESONIDE 0.5 MG/2 ML NEB INH SCH ×2 (07:41→18:58)
[2022-08-30] MEDS: IPRATROPIUM/ALBUTEROL 3 ML NEB INH SCH ×4 (07:41→18:59)
[2022-08-30] MEDS: FORMOTEROL FUMARATE NEB 20 MCG/2 ML INH SCH ×2 (07:41→18:58)
[2022-08-30] MEDS: ENOXAPARIN 40 MG/0.4 ML SYRINGE SUBQ SCH (08:08)
[2022-08-30] MEDS: SACCHAROMYCES BOULARDII 250 MG CAPSULE PO SCH (08:09)
[2022-08-30] MEDS: MULTIVITAMIN TABLET PO SCH (08:09)
[2022-08-30] MEDS: guaiFENesin 600 MG TABLET PO SCH (08:09)
[2022-08-30] MEDS: ASPIRIN EC 81 MG TABLET PO SCH (08:10)
[2022-08-30] MEDS: WHEAT DEXTRIN POWDER PACKET PO SCH (08:10)
[2022-08-30] MEDS: SODIUM CHLORIDE 0.9% 1,000 ML IV SCH (08:10)
--- NOTE | 2022-08-30 08:23 | PROVIDER PROGRESS NOTE ---
Subjective - Subjective Subjective: Sedated on Propofol, on vent, does open eyes and moves upper extrem Objective - Vital Signs/Intake & Output Vital Signs: Vital Signs Temp Pulse Pulse Resp BP BP Pulse Ox 08/30/22 08:00 36.6 C 50 L 20 142/47 H 100 08/30/22 07:43 50 L 20 08/30/22 07:00 51 L 20 120/45 L 126/40 L 99 08/30/22 06:00 37.5 C 51 L 20 123/49 L 128/43 L 100 08/30/22 05:45 50 L 08/30/22 05:00 53 L 20 124/45 L 116/41 L 99 Intake & Output: Intake & Output 08/27/22 08/28/22 08/29/22 08/30/22 23:59 23:59 23:59 23:59 Intake Total 4316.25 3011.25 3305.054 853.256 Output Total 895 432 3097 280 Balance 3966.25 2911.25 2190.054 573.256 - Objective General Appearance: positive: No acute distress, Other (Sedated) Eyes Bilateral: positive: No lid inflammation Neck: positive: Nml inspection Respiratory: positive: Other (on the vent, rhonchi across room) Cardiovascular: positive: Regular rate & rhythm Abdomen: positive: No distention Skin: positive: Warm, Dry Extremities: positive: Other (1+ edema) Neurologic/Psychiatric: positive: Other (sedated on iv Propofol) - Lab Results Fish Bones: 08/30/22 04:30 08/30/22 04:30 Other Labs: Lab Results x24hrs 08/30/22 08/30/22 08/30/22 Range/Units 04:30 04:30 04:30 WBC (4.8-10.8) x10^3/uL RBC (4.20-5.40) 10^6/uL Hgb (12.0-16.0) g/dL Hct (37.0-47.0) % MCV (81.0-99.0) fL MCH (27.0-31.0) pg MCHC (32.0-36.0) g/dL RDW (12.0-15.0) % Plt Count (130-450) 10^3/uL MPV (7.9-10.8) fL Neut # (Auto) (1.5-6.6) 10^3/uL Lymph # (Auto) (1.5-3.5) 10^3/uL Summers # (Auto) (0.0-1.0) 10^3/uL Eos # (Auto) (0.0-0.7) 10^3/uL Baso # (Auto) (0.0-0.1) 10^3/uL Absolute Nucleated RBC x10^3/uL Total Counted Band Neuts % (Manual) (0 - 10) % Abnorm Lymph % (Manual) % Myelocytes % ( - 0) % Nucleated RBC % /100WBC Neutrophils # (Manual) (1.5-6.6) 10^3/uL Lymphocytes # (Manual) (1.5-3.5) 10^3/uL Monocytes # (Manual) (0.0-1.0) 10^3/uL Eosinophils # (Manual) (0-0.7) 10^3/uL Basophils # (Manual) (0-0.1) 10^3/uL Differential Comment WBC Morphology (NORMAL) Platelet Estimate (NORMAL) Platelet Morphology (NORMAL) RBC Morph Micro Appear (NORMAL) Bld Gas Analysis Time Sample Site ABG pH (7.35-7.45) ABG pCO2 (34-45) mmHg ABG pO2 (80-100) mmHg ABG HCO3 (22.0-26.0) mmol/L ABG Total CO2 (21.0-29.0) MMOL/L ABG O2 Saturation (94-98) % ABG Base Excess (-2.0-3.0) mmol/L Arden Test VBG pH 7.456 H (7.31-7.41) Ionized Calcium 1.20 (1.15-1.33) mmol/L Respiration Rate b/min O2 Delivery Device Vent Mode FiO2 Tidal Volume mL PEEP cmH2O Sodium (135-145) mmol/L Potassium (3.5-5.0) mmol/L Chloride (101-111) mmol/L Carbon Dioxide (21-32) mmol/L Anion Gap (6-13) BUN (6-20) mg/dL Creatinine (0.4-1.0) mg/dL Estimated GFR (MDRD) (>89) Glucose (70-100) mg/dL Calcium (8.5-10.3) mg/dL Phosphorus 2.1 L (2.5-4.6) mg/dL Magnesium 1.9 (1.7-2.8) mg/dL Prealbumin 10 L (18-45) mg/dL Triglycerides 104 ( - 149) mg/dL Urine Color Urine Clarity (CLEAR) Urine pH (5.0-7.5) PH Ur Specific Mullens (1.002-1.030) Urine Protein (NEGATIVE) mg/dL Urine Glucose (UA) (NEGATIVE) mg/dL Urine Ketones (NEGATIVE) mg/dL Urine Occult Blood (NEGATIVE) Urine Nitrite (NEGATIVE) Urine Bilirubin (NEGATIVE) Urine Urobilinogen (NORMAL) E.U./dL Ur Leukocyte Esterase (NEGATIVE) Urine RBC (0-5) /HPF Urine WBC (0-5) /HPF Ur Squamous Epith Cells (<= Few) Urine Bacteria (None Seen) /HPF Ur Microscopic Review Urine Culture Comments 08/30/22 08/30/22 08/29/22 Range/Units 04:30 04:30 21:31 WBC 9.8 (4.8-10.8) x10^3/uL RBC 2.86 L (4.20-5.40) 10^6/uL Hgb 8.7 L (12.0-16.0) g/dL Hct 27.7 L (37.0-47.0) % MCV 96.9 (81.0-99.0) fL MCH 30.4 (27.0-31.0) pg MCHC 31.4 L (32.0-36.0) g/dL RDW 14.9 (12.0-15.0) % Plt Count 203 (130-450) 10^3/uL MPV 9.4 (7.9-10.8) fL Neut # (Auto) Not Reportable (1.5-6.6) 10^3/uL Lymph # (Auto) Not Reportable (1.5-3.5) 10^3/uL Summers # (Auto) Not Reportable (0.0-1.0) 10^3/uL Eos # (Auto) Not Reportable (0.0-0.7) 10^3/uL Baso # (Auto) Not Reportable (0.0-0.1) 10^3/uL Absolute Nucleated RBC Not Reportable x10^3/uL Total Counted 100 Band Neuts % (Manual) 2 (0 - 10) % Abnorm Lymph % (Manual) 0 % Myelocytes % 1 H ( - 0) % Nucleated RBC % Not Reportable /100WBC Neutrophils # (Manual) 8.7 H (1.5-6.6) 10^3/uL Lymphocytes # (Manual) 0.8 L (1.5-3.5) 10^3/uL Monocytes # (Manual) 0.2 (0.0-1.0) 10^3/uL Eosinophils # (Manual) 0.0 (0-0.7) 10^3/uL Basophils # (Manual) 0.0 (0-0.1) 10^3/uL Differential Comment MANUAL DIFFERENTIAL WBC Morphology NORMAL APPEARANCE (NORMAL) Platelet Estimate NORMAL (130-450,000) (NORMAL) Platelet Morphology NORMAL APPEARANCE (NORMAL) RBC Morph Micro Appear NORMAL APPEARANCE (NORMAL) Bld Gas Analysis Time Sample Site ABG pH (7.35-7.45) ABG pCO2 (34-45) mmHg ABG pO2 (80-100) mmHg ABG HCO3 (22.0-26.0) mmol/L ABG Total CO2 (21.0-29.0) MMOL/L ABG O2 Saturation (94-98) % ABG Base Excess (-2.0-3.0) mmol/L Arden Test VBG pH 7.511 H (7.31-7.41) Ionized Calcium 1.18 (1.15-1.33) mmol/L Respiration Rate b/min O2 Delivery Device Vent Mode FiO2 Tidal Volume mL PEEP cmH2O Sodium 141 (135-145) mmol/L Potassium 3.9 (3.5-5.0) mmol/L Chloride 108 (101-111) mmol/L Carbon Dioxide 29 (21-32) mmol/L Anion Gap 4.0 L (6-13) BUN 21 H (6-20) mg/dL Creatinine 0.4 (0.4-1.0) mg/dL Estimated GFR (MDRD) 152 (>89) Glucose 168 H (70-100) mg/dL Calcium 8.2 L (8.5-10.3) mg/dL Phosphorus (2.5-4.6) mg/dL Magnesium (1.7-2.8) mg/dL Prealbumin (18-45) mg/dL Triglycerides ( - 149) mg/dL Urine Color Urine Clarity (CLEAR) Urine pH (5.0-7.5) PH Ur Specific Mullens (1.002-1.030) Urine Protein (NEGATIVE) mg/dL Urine Glucose (UA) (NEGATIVE) mg/dL Urine Ketones (NEGATIVE) mg/dL Urine Occult Blood (NEGATIVE) Urine Nitrite (NEGATIVE) Urine Bilirubin (NEGATIVE) Urine Urobilinogen (NORMAL) E.U./dL Ur Leukocyte Esterase (NEGATIVE) Urine RBC (0-5) /HPF Urine WBC (0-5) /HPF Ur Squamous Epith Cells (<= Few) Urine Bacteria (None Seen) /HPF Ur Microscopic Review Urine Culture Comments 08/29/22 08/29/22 08/29/22 Range/Units 21:31 11:42 11:42 WBC (4.8-10.8) x10^3/uL RBC (4.20-5.40) 10^6/uL Hgb (12.0-16.0) g/dL Hct (37.0-47.0) % MCV (81.0-99.0) fL MCH (27.0-31.0) pg MCHC (32.0-36.0) g/dL RDW (12.0-15.0) % Plt Count (130-450) 10^3/uL MPV (7.9-10.8) fL Neut # (Auto) (1.5-6.6) 10^3/uL Lymph # (Auto) (1.5-3.5) 10^3/uL Summers # (Auto) (0.0-1.0) 10^3/uL Eos # (Auto) (0.0-0.7) 10^3/uL Baso # (Auto) (0.0-0.1) 10^3/uL Absolute Nucleated RBC x10^3/uL Total Counted Band Neuts % (Manual) (0 - 10) % Abnorm Lymph % (Manual) % Myelocytes % ( - 0) % Nucleated RBC % /100WBC Neutrophils # (Manual) (1.5-6.6) 10^3/uL Lymphocytes # (Manual) (1.5-3.5) 10^3/uL Monocytes # (Manual) (0.0-1.0) 10^3/uL Eosinophils # (Manual) (0-0.7) 10^3/uL Basophils # (Manual) (0-0.1) 10^3/uL Differential Comment WBC Morphology (NORMAL) Platelet Estimate (NORMAL) Platelet Morphology (NORMAL) RBC Morph Micro Appear (NORMAL) Bld Gas Analysis Time Sample Site ABG pH (7.35-7.45) ABG pCO2 (34-45) mmHg ABG pO2 (80-100) mmHg ABG HCO3 (22.0-26.0) mmol/L ABG Total CO2 (21.0-29.0) MMOL/L ABG O2 Saturation (94-98) % ABG Base Excess (-2.0-3.0) mmol/L Arden Test VBG pH 7.471 H (7.31-7.41) Ionized Calcium 1.22 (1.15-1.33) mmol/L Respiration Rate b/min O2 Delivery Device Vent Mode FiO2 Tidal Volume mL PEEP cmH2O Sodium (135-145) mmol/L Potassium 3.7 (3.5-5.0) mmol/L Chloride (101-111) mmol/L Carbon Dioxide (21-32) mmol/L Anion Gap (6-13) BUN (6-20) mg/dL Creatinine (0.4-1.0) mg/dL Estimated GFR (MDRD) (>89) Glucose (70-100) mg/dL Calcium (8.5-10.3) mg/dL Phosphorus 2.0 L 1.7 L (2.5-4.6) mg/dL Magnesium 2.0 2.0 (1.7-2.8) mg/dL Prealbumin (18-45) mg/dL Triglycerides ( - 149) mg/dL Urine Color Urine Clarity (CLEAR) Urine pH (5.0-7.5) PH Ur Specific Mullens (1.002-1.030) Urine Protein (NEGATIVE) mg/dL Urine Glucose (UA) (NEGATIVE) mg/dL Urine Ketones (NEGATIVE) mg/dL Urine Occult Blood (NEGATIVE) Urine Nitrite (NEGATIVE) Urine Bilirubin (NEGATIVE) Urine Urobilinogen (NORMAL) E.U./dL Ur Leukocyte Esterase (NEGATIVE) Urine RBC (0-5) /HPF Urine WBC (0-5) /HPF Ur Squamous Epith Cells (<= Few) Urine Bacteria (None Seen) /HPF Ur Microscopic Review Urine Culture Comments 08/29/22 08/29/22 08/29/22 Range/Units 11:42 11:42 11:30 WBC 14.9 H (4.8-10.8) x10^3/uL RBC 3.36 L (4.20-5.40) 10^6/uL Hgb 10.4 L (12.0-16.0) g/dL Hct 32.3 L (37.0-47.0) % MCV 96.1 (81.0-99.0) fL MCH 31.0 (27.0-31.0) pg MCHC 32.2 (32.0-36.0) g/dL RDW 14.9 (12.0-15.0) % Plt Count 268 (130-450) 10^3/uL MPV 9.1 (7.9-10.8) fL Neut # (Auto) 12.7 H (1.5-6.6) 10^3/uL Lymph # (Auto) 0.9 L (1.5-3.5) 10^3/uL Summers # (Auto) 1.1 H (0.0-1.0) 10^3/uL Eos # (Auto) 0.0 (0.0-0.7) 10^3/uL Baso # (Auto) 0.1 (0.0-0.1) 10^3/uL Absolute Nucleated RBC 0.00 x10^3/uL Total Counted Band Neuts % (Manual) (0 - 10) % Abnorm Lymph % (Manual) % Myelocytes % ( - 0) % Nucleated RBC % 0.0 /100WBC Neutrophils # (Manual) (1.5-6.6) 10^3/uL Lymphocytes # (Manual) (1.5-3.5) 10^3/uL Monocytes # (Manual) (0.0-1.0) 10^3/uL Eosinophils # (Manual) (0-0.7) 10^3/uL Basophils # (Manual) (0-0.1) 10^3/uL Differential Comment WBC Morphology (NORMAL) Platelet Estimate (NORMAL) Platelet Morphology (NORMAL) RBC Morph Micro Appear (NORMAL) Bld Gas Analysis Time Sample Site ABG pH (7.35-7.45) ABG pCO2 (34-45) mmHg ABG pO2 (80-100) mmHg ABG HCO3 (22.0-26.0) mmol/L ABG Total CO2 (21.0-29.0) MMOL/L ABG O2 Saturation (94-98) % ABG Base Excess (-2.0-3.0) mmol/L Arden Test VBG pH (7.31-7.41) Ionized Calcium (1.15-1.33) mmol/L Respiration Rate b/min O2 Delivery Device Vent Mode FiO2 Tidal Volume mL PEEP cmH2O Sodium 139 (135-145) mmol/L Potassium 3.8 (3.5-5.0) mmol/L Chloride 106 (101-111) mmol/L Carbon Dioxide 29 (21-32) mmol/L Anion Gap 4.0 L (6-13) BUN 20 (6-20) mg/dL Creatinine 0.3 L (0.4-1.0) mg/dL Estimated GFR (MDRD) 212 (>89) Glucose 138 H (70-100) mg/dL Calcium 8.6 (8.5-10.3) mg/dL Phosphorus (2.5-4.6) mg/dL Magnesium (1.7-2.8) mg/dL Prealbumin (18-45) mg/dL Triglycerides ( - 149) mg/dL Urine Color DARK YELLOW Urine Clarity TURBID (CLEAR) Urine pH 6.0 (5.0-7.5) PH Ur Specific Mullens 1.025 (1.002-1.030) Urine Protein TRACE (NEGATIVE) mg/dL Urine Glucose (UA) NEGATIVE (NEGATIVE) mg/dL Urine Ketones 15 H (NEGATIVE) mg/dL Urine Occult Blood LARGE H (NEGATIVE) Urine Nitrite POSITIVE H (NEGATIVE) Urine Bilirubin NEGATIVE (NEGATIVE) Urine Urobilinogen 0.2 (NORMAL) (NORMAL) E.U./dL Ur Leukocyte Esterase SMALL H (NEGATIVE) Urine RBC 6-10 H (0-5) /HPF Urine WBC 11-25 H (0-5) /HPF Ur Squamous Epith Cells MANY Squamous H (<= Few) Urine Bacteria Few (None Seen) /HPF Ur Microscopic Review INDICATED Urine Culture Comments NOT INDICATED 08/29/22 Range/Units 09:05 WBC (4.8-10.8) x10^3/uL RBC (4.20-5.40) 10^6/uL Hgb (12.0-16.0) g/dL Hct (37.0-47.0) % MCV (81.0-99.0) fL MCH (27.0-31.0) pg MCHC (32.0-36.0) g/dL RDW (12.0-15.0) % Plt Count (130-450) 10^3/uL MPV (7.9-10.8) fL Neut # (Auto) (1.5-6.6) 10^3/uL Lymph # (Auto) (1.5-3.5) 10^3/uL Summers # (Auto) (0.0-1.0) 10^3/uL Eos # (Auto) (0.0-0.7) 10^3/uL Baso # (Auto) (0.0-0.1) 10^3/uL Absolute Nucleated RBC x10^3/uL Total Counted Band Neuts % (Manual) (0 - 10) % Abnorm Lymph % (Manual) % Myelocytes % ( - 0) % Nucleated RBC % /100WBC Neutrophils # (Manual) (1.5-6.6) 10^3/uL Lymphocytes # (Manual) (1.5-3.5) 10^3/uL Monocytes # (Manual) (0.0-1.0) 10^3/uL Eosinophils # (Manual) (0-0.7) 10^3/uL Basophils # (Manual) (0-0.1) 10^3/uL Differential Comment WBC Morphology (NORMAL) Platelet Estimate (NORMAL) Platelet Morphology (NORMAL) RBC Morph Micro Appear (NORMAL) Bld Gas Analysis Time 0922 Sample Site A-LINE ABG pH 7.38 (7.35-7.45) ABG pCO2 52 H (34-45) mmHg ABG pO2 184 H* (80-100) mmHg ABG HCO3 30.3 H (22.0-26.0) mmol/L ABG Total CO2 31.9 H (21.0-29.0) MMOL/L ABG O2 Saturation 99 H (94-98) % ABG Base Excess 4.3 H (-2.0-3.0) mmol/L Arden Test NOT APPLICABLE VBG pH (7.31-7.41) Ionized Calcium (1.15-1.33) mmol/L Respiration Rate 20 b/min O2 Delivery Device VENTILATOR Vent Mode ASSIST/CONTROL FiO2 70.00 Tidal Volume 350 mL PEEP 5 cmH2O Sodium (135-145) mmol/L Potassium (3.5-5.0) mmol/L Chloride (101-111) mmol/L Carbon Dioxide (21-32) mmol/L Anion Gap (6-13) BUN (6-20) mg/dL Creatinine (0.4-1.0) mg/dL Estimated GFR (MDRD) (>89) Glucose (70-100) mg/dL Calcium (8.5-10.3) mg/dL Phosphorus (2.5-4.6) mg/dL Magnesium (1.7-2.8) mg/dL Prealbumin (18-45) mg/dL Triglycerides ( - 149) mg/dL Urine Color Urine Clarity (CLEAR) Urine pH (5.0-7.5) PH Ur Specific Mullens (1.002-1.030) Urine Protein (NEGATIVE) mg/dL Urine Glucose (UA) (NEGATIVE) mg/dL Urine Ketones (NEGATIVE) mg/dL Urine Occult Blood (NEGATIVE) Urine Nitrite (NEGATIVE) Urine Bilirubin (NEGATIVE) Urine Urobilinogen (NORMAL) E.U./dL Ur Leukocyte Esterase (NEGATIVE) Urine RBC (0-5) /HPF Urine WBC (0-5) /HPF Ur Squamous Epith Cells (<= Few) Urine Bacteria (None Seen) /HPF Ur Microscopic Review Urine Culture Comments Assessment/Plan - Problem List (1) Acute respiratory failure with hypoxia Impression: After admission, she needed 1 L of O2 via nasal cannula. But as the day went on she had increased work of breathing, and was up to 5 L nasal cannula. An ABG done 08/28 showed acceptable PCO2 but her pH was worsening and she was moved to the ICU. She had a tendency to take off her nasal cannula oxygen, se we hoped that the one-to-one nursing care in ICU would help keep her oxygen on and monitor her more closely. Then yesterday, 08/29 she did not do well and was in such distress that she was near having a respiratory arrest. She is a full code. As such, we called anesthesia colleagues to intubate her, put in a central line, and put in an art line. Repeat chest x-ray on 08/29 showed an increasing pneumonia. This was most likely the cause of her worsened respiratory failure, despite being on antibiotics since admission. Plan: Continue current treatment of scheduled nebulizers, DuoNeb scheduled 3 times a day and Pulmicort and Perforomist 0.5 mg twice daily Will broaden IV antibiotics. Will increase Solu-Medrol from 40 mg to 80 mg IV TID Cont singular 10 mg per ng, and will change Mucinex 600 mg p.o. BID to liquid form at 400 mg q8h Remain in ICU (2) On mechanically assisted ventilation Impression: She was intubated yesterday 08/29, for airway protection and for ventilator support since she was guppy breathing and in respiratory failure Plan: Cont Propofol drip for sedation We will switch her extended release meds to either crushable or IV form Will make once daily Protonix, change it to Pepcid IV twice daily for stress ulcer prophylaxis Cont ng tube feeds Start Peridex for oral care Allow patient to recover several days on the vent, treating her underlying pneumonia and COPD, before we try extubation We will cancel PT and OT evaluations (3) Pseudomonas pneumonia Impression: The chest x-ray after line placement and NG tube placement, done 08/29 shows her to have an evolving pneumonia. She appears to have worsening interstitial changes. She has been on empiric antibiotics since admission. She finished 3 days of IV azithromycin August 27 and got 5 days of Rocephin. Results of new sputum sample sent for for culture yesterday, which was a better specimen was obtained from ET tube suctioning, is growing Pseudomonas. Plan: Because her pneumonia worsened despite antibiotics, and she is immun ocompromised, the plan yesterday was to broaden coverage to cefepime 2 g every 8 hours, but order was not placed yet. I discussed the dose with pharmacist Quan today, will order cefepime 1 g IV every 12 hours (4) COPD exacerbation Impression: Caused by her respiratory failure from PNA. She does not have a history of COPD in the past. She is a former smoker but quit smoking at the age of 31. Plan: As in #1 and #2. She will need formal pulmonary function studies with DLCO performed when she is stabilized from this current acute episode of care. 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 MCV is normal. She does not list folic acid on her medication list. Plan: Methotrexate currently being held. Changed po folic acid to liquid form daily Prednisone was stopped, she is on Solumedrol iv to help with inflammation from COPD exacerbation (6) Elevated troponin Impression: All labs were reviewed. Her trops were 240>> 228>> 194>> 140 Probably hypoxia caused some demand ischemia. Troponins ruled out an [place]. EKG is without changes. No treatment for NSTEMI at this time. Plan: Echo was ordered, but we have no Carpenter Assembler except - (today is ) (7) Severe protein calorie malnutrition. On examination she has significant muscle wasting, loss of subcutaneous fat. She has had less than 50% recommended intake for 2 weeks or more. And she is lost 50 pounds in the last 3 months. It looks like she has lost 33% of her body weight by looking at the medical record. Plan: Nutrition services has been working with her trying to encourage p.o. intake w/ Ensure. She was exhausted the last few days and not eating very much. Since being intubated yesterday 08/29/22, she has an NG tube in place and we started tube feedings, as managed by nutrition services
[2022-08-30] MEDS: CHLORHEXIDINE GLUCONATE 15 ML UDC PO SCH ×2 (08:26→20:43)
[2022-08-30] MEDS: PROPRANOLOL ER 80 MG CAPSULE PO SCH (08:27)
[2022-08-30] MEDS ORDERED: SODIUM CHLORIDE 0.9% 1,000 ML IV SCH ×2 (08:29→12:43)
[2022-08-30] MEDS: FAMOTIDINE 20 MG/2 ML VIAL IVP SCH ×2 (08:37→20:43)
[2022-08-30] MEDS: guaiFENesin 100 MG/5 ML UDC PO SCH ×2 (08:37→16:31)
[2022-08-30] MEDS: FOLIC ACID 1 MG TABLET NG SCH (08:37)
[2022-08-30] MEDS: CEFEPIME 1 GM in SODIUM CHLORIDE 0.9% MINIBAG 100 ML IV SCH ×2 (08:52→20:42)
[2022-08-30] MEDS ORDERED: POTASSIUM PHOSPHATE 15 MMOL in SODIUM CHLORIDE 0.9% 250 ML IV ONE (09:00)
[2022-08-30] MEDS: FUROSEMIDE 20 MG/2 ML VIAL IVP SCH (13:21)
[2022-08-30] MEDS ORDERED: DEXMEDETOMIDINE 400 MCG/100 ML 100 ML IV SCH (16:00)
[2022-08-30] MEDS: SACCHAROMYCES BOULARDII 250 MG CAPSULE NG SCH (16:31)
[2022-08-30 16:45] LABS: ABG PCO2 33 mmHg (34-45); ABG PH 7.55 (7.35-7.45)
[2022-08-30 16:46] LABS: ABG HCO3 28.5 mmol/L (22.0-26.0); ABG OXYGEN SATURATION 98 % (94-98); ABG PO2 110 mmHg (80-100); ABG TCO2 29.5 MMOL/L (21.0-29.0)
[2022-08-30 16:47] LABS: ABG MODE OF VENTILATION ASSIST/CONTROL; ABG RESPIRATORY RATE 20 b/min
[2022-08-30] MEDS: DEXMEDETOMIDINE 400 MCG/100 ML 100 ML IV SCH ×2 (17:26→22:31)
[2022-08-30] MEDS: MONTELUKAST 10 MG TABLET PO SCH (20:43)
[2022-08-30] MEDS ORDERED: hydrALAZINE INJ 20 MG/ML VIAL IVP PRN (23:03)
[2022-08-31] MEDS: SODIUM CHLORIDE FLUSH 0.9% 10 ML SYRINGE IVP SCH ×3 (01:24→17:50)
[2022-08-31] MEDS: guaiFENesin 100 MG/5 ML UDC PO SCH ×2 (01:24→09:05)
[2022-08-31 04:24] LABS: BASOPHILS % (AUTO) 0.2 %; HCT - HEMATOCRIT 30.3 % (37.0-47.0); HGB - HEMOGLOBIN 9.6 g/dL (12.0-16.0); LYMPHOCYTES # (AUTO) 0.7 10^3/uL (1.5-3.5); MEAN CORPUSCULAR HEMOGLOBIN 30.3 pg (27.0-31.0); MEAN CORPUSCULAR HGB CONC 31.7 g/dL (32.0-36.0); MEAN CORPUSCULAR VOLUME 95.6 fL (81.0-99.0); MEAN PLATELET VOLUME 9.5 fL (7.9-10.8); MONOCYTES # (AUTO) 0.7 10^3/uL (0.0-1.0); MONOCYTES % (AUTO) 6.8 %; NEUTROPHILS % (AUTO) 83.3 %; PLT - PLATELET COUNT 212 10^3/uL (130-450); RED BLOOD COUNT 3.17 10^6/uL (4.20-5.40); RED CELL DISTRIBUTION WIDTH 14.9 % (12.0-15.0); VBG PH 7.489 (7.31-7.41); WHITE BLOOD COUNT 9.6 x10^3/uL (4.8-10.8)
[2022-08-31 04:25] LABS: CALCIUM, IONIZED 1.16 mmol/L (1.15-1.33)
[2022-08-31 04:35] LABS: CALCIUM 8.2 mg/dL (8.5-10.3); CREATININE 0.5 mg/dL (0.4-1.0); POTASSIUM 3.7 mmol/L (3.5-5.0)
[2022-08-31 04:49] LABS: PHOSPHORUS 2.9 mg/dL (2.5-4.6)
[2022-08-31] MEDS ORDERED: POTASSIUM CHLOR 20 MEQ/100 ML 20 MEQ/100 ML BAG IV ONE (04:52)
[2022-08-31 05:24] LABS: ABG BASE EXCESS 6.8 mmol/L (-2.0-3.0); ABG HCO3 29.1 mmol/L (22.0-26.0); ABG MODE OF VENTILATION ASSIST/CONTROL; ABG OXYGEN SATURATION 98 % (94-98); ABG PCO2 34 mmHg (34-45); ABG PH 7.56 (7.35-7.45); ABG PO2 104 mmHg (80-100); ABG TCO2 30.1 MMOL/L (21.0-29.0)
[2022-08-31 05:25] LABS: ABG RESPIRATORY RATE 18 b/min
[2022-08-31] MEDS: FUROSEMIDE 20 MG/2 ML VIAL IVP SCH ×2 (05:30→13:52)
[2022-08-31] MEDS: methylPREDNISolone SUCCINATE 40 MG/ML VIAL IVP SCH ×3 (05:30→22:10)
[2022-08-31] MEDS: BUDESONIDE 0.5 MG/2 ML NEB INH SCH ×2 (06:41→19:50)
[2022-08-31] MEDS: IPRATROPIUM/ALBUTEROL 3 ML NEB INH SCH ×4 (06:41→19:50)
[2022-08-31] MEDS: FORMOTEROL FUMARATE NEB 20 MCG/2 ML INH SCH ×2 (06:42→19:50)
[2022-08-31] MEDS: CEFEPIME 1 GM in SODIUM CHLORIDE 0.9% MINIBAG 100 ML IV SCH ×2 (09:01→20:48)
[2022-08-31] MEDS: CHLORHEXIDINE GLUCONATE 15 ML UDC PO SCH ×2 (09:05→21:03)
[2022-08-31] MEDS: MULTIVITAMIN TABLET PO SCH (09:05)
[2022-08-31] MEDS: FOLIC ACID 1 MG TABLET NG SCH (09:05)
[2022-08-31] MEDS: ENOXAPARIN 40 MG/0.4 ML SYRINGE SUBQ SCH (09:05)
[2022-08-31] MEDS: SACCHAROMYCES BOULARDII 250 MG CAPSULE NG SCH ×2 (09:06→17:44)
--- NOTE | 2022-08-31 09:12 | PROVIDER PROGRESS NOTE ---
Subjective - Subjective Pt reports feeling: Improved Subjective: She was extubated this morning. At mid-morning, when I asked her how she feels, she just stares at me and then looks away. I asked her if she has any pain and she just stares at me and then eventually shakes her head no. Her RN said she did the same thing with nursing today, after extubation. Objective - Vital Signs/Intake & Output Reviewed Vital Signs: Yes Vital Signs: Vital Signs Temp Pulse Pulse Resp BP BP Pulse Ox 08/31/22 09:00 73 30 H 144/61 H 97 08/31/22 08:00 37.0 C 74 28 H 128/53 L 97 08/31/22 07:55 08/31/22 07:02 68 08/31/22 07:00 67 27 H 115/47 L 101/36 L 98 08/31/22 06:43 78 24 08/31/22 06:34 72 08/31/22 06:00 71 26 H 128/52 L 108/37 L 98 08/31/22 05:26 50 L O2 Flow Rate 08/31/22 09:00 2 08/31/22 08:00 2 08/31/22 07:55 2 08/31/22 07:02 08/31/22 07:00 08/31/22 06:43 08/31/22 06:34 08/31/22 06:00 08/31/22 05:26 Intake & Output: Intake & Output 08/28/22 08/29/22 08/30/22 08/31/22 23:59 23:59 23:59 23:59 Intake Total 3011.25 3305.054 2377.098 180.001 Output Total 100 1115 2228 1380 Balance 2911.25 2190.054 149.098 -1199.999 - Objective General Appearance: positive: No acute distress, Other (Has a wet cough. Cachectic. Has a flat affect and is not communicative.) Eyes Bilateral: positive: Normal inspection, No lid inflammation ENT: positive: ENT inspection nml, No signs of dehydration Neck: positive: Nml inspection Respiratory: positive: No respiratory distress, Breath sounds nml Cardiovascular: positive: Regular rate & rhythm, No murmur Abdomen: positive: Non-tender, No distention Skin: positive: Warm, Dry, Other (Has skin tenting) Extremities: positive: Non-tender, No pedal edema Neurologic/Psychiatric: positive: Other (Is alert, has a flat affect and is not communicative, moving all extremities.) - Lab Results Fish Bones: 08/31/22 04:15 08/31/22 04:15 Other Labs: Lab Results x24hrs 08/31/22 08/31/22 08/31/22 Range/Units 05:18 04:15 04:15 WBC (4.8-10.8) x10^3/uL RBC (4.20-5.40) 10^6/uL Hgb (12.0-16.0) g/dL Hct (37.0-47.0) % MCV (81.0-99.0) fL MCH (27.0-31.0) pg MCHC (32.0-36.0) g/dL RDW (12.0-15.0) % Plt Count (130-450) 10^3/uL MPV (7.9-10.8) fL Neut # (Auto) (1.5-6.6) 10^3/uL Lymph # (Auto) (1.5-3.5) 10^3/uL Addison # (Auto) (0.0-1.0) 10^3/uL Eos # (Auto) (0.0-0.7) 10^3/uL Baso # (Auto) (0.0-0.1) 10^3/uL Absolute Nucleated RBC x10^3/uL Nucleated RBC % /100WBC Bld Gas Analysis Time 0521 Sample Site A-LINE ABG pH 7.56 H (7.35-7.45) ABG pCO2 34 (34-45) mmHg ABG pO2 104 H (80-100) mmHg ABG HCO3 29.1 H (22.0-26.0) mmol/L ABG Total CO2 30.1 H (21.0-29.0) MMOL/L ABG O2 Saturation 98 (94-98) % ABG Base Excess 6.8 H (-2.0-3.0) mmol/L Arden Test NOT APPLICABLE VBG pH 7.489 H (7.31-7.41) Ionized Calcium 1.16 (1.15-1.33) mmol/L Respiration Rate 18 b/min O2 Delivery Device VENTILATOR Vent Mode ASSIST/CONTROL FiO2 40.00 Tidal Volume 350 mL PEEP 5 cmH2O Sodium (135-145) mmol/L Potassium (3.5-5.0) mmol/L Chloride (101-111) mmol/L Carbon Dioxide (21-32) mmol/L Anion Gap (6-13) BUN (6-20) mg/dL Creatinine (0.4-1.0) mg/dL Estimated GFR (MDRD) (>89) Glucose (70-100) mg/dL Calcium (8.5-10.3) mg/dL Phosphorus 2.9 (2.5-4.6) mg/dL Magnesium 2.0 (1.7-2.8) mg/dL 08/31/22 08/31/22 08/30/22 Range/Units 04:15 04:15 16:38 WBC 9.6 (4.8-10.8) x10^3/uL RBC 3.17 L (4.20-5.40) 10^6/uL Hgb 9.6 L (12.0-16.0) g/dL Hct 30.3 L (37.0-47.0) % MCV 95.6 (81.0-99.0) fL MCH 30.3 (27.0-31.0) pg MCHC 31.7 L (32.0-36.0) g/dL RDW 14.9 (12.0-15.0) % Plt Count 212 (130-450) 10^3/uL MPV 9.5 (7.9-10.8) fL Neut # (Auto) 8.0 H (1.5-6.6) 10^3/uL Lymph # (Auto) 0.7 L (1.5-3.5) 10^3/uL Addison # (Auto) 0.7 (0.0-1.0) 10^3/uL Eos # (Auto) 0.0 (0.0-0.7) 10^3/uL Baso # (Auto) 0.0 (0.0-0.1) 10^3/uL Absolute Nucleated RBC 0.00 x10^3/uL Nucleated RBC % 0.0 /100WBC Bld Gas Analysis Time 1643 Sample Site A-LINE ABG pH 7.55 H (7.35-7.45) ABG pCO2 33 L (34-45) mmHg ABG pO2 110 H (80-100) mmHg ABG HCO3 28.5 H (22.0-26.0) mmol/L ABG Total CO2 29.5 H (21.0-29.0) MMOL/L ABG O2 Saturation 98 (94-98) % ABG Base Excess 6.0 H (-2.0-3.0) mmol/L Arden Test NOT APPLICABLE VBG pH (7.31-7.41) Ionized Calcium (1.15-1.33) mmol/L Respiration Rate 20 b/min O2 Delivery Device VENTILATOR Vent Mode ASSIST/CONTROL FiO2 40.00 Tidal Volume 350 mL PEEP 5 cmH2O Sodium 137 (135-145) mmol/L Potassium 3.7 (3.5-5.0) mmol/L Chloride 103 (101-111) mmol/L Carbon Dioxide 30 (21-32) mmol/L Anion Gap 4.0 L (6-13) BUN 21 H (6-20) mg/dL Creatinine 0.5 (0.4-1.0) mg/dL Estimated GFR (MDRD) 118 (>89) Glucose 257 H (70-100) mg/dL Calcium 8.2 L (8.5-10.3) mg/dL Phosphorus (2.5-4.6) mg/dL Magnesium (1.7-2.8) mg/dL - Diagnostic Imaging Diagnostic Imaging Results: positive: Final report reviewed Assessment/Plan - Problem List (1) Acute respiratory failure with hypoxia Impression: After admission, she needed 1 L of O2 via nasal cannula. But as the day went on she had increased work of breathing, and was up to 5 L nasal cannula. An ABG done 08/28 showed her pH was worsening and she was moved to the ICU. She had a tendency to take off her nasal cannula oxygen, so we hoped that the one-to-one nursing care in ICU would help keep her oxygen on and monitor her more closely. But on 08/29 she did not do well and was in such distress that she was near having a respiratory arrest. She is a full code. As such, she was intubated, and Anesthesia put in a central line, and put in an art line. Repeat chest x-ray on 08/29 showed an increasing pneumonia. This was most likely the cause of her worsened respiratory failure, despite being on antibiotics since admission. Yesterday I increased Solu-Medrol from 40 mg to 80 mg IV TID This morning's CXR shows improvement in the infiltrates Plan: Continue current treatment of scheduled nebulizers, DuoNeb scheduled 3 times a day and Pulmicort and Perforomist 0.5 mg twice daily Continue new iv Cefepime Will start to wean down her IV Solu-Medrol dose Cont singular and Mucinex (2) On mechanically assisted ventilation Impression: She was intubated 08/29, for airway protection and for ventilator support since she was guppy breathing and in respiratory failure. She was on propofol drip and Precedex drip for sedation. This morning both drips have been stopped, her weaning parameters have been done and are good The patient was successfully extubated this morning Plan: We will resume her oral meds and diet Remain in the ICU in case she has worsening and needs reintubation today, pr obably will order out to [facility] tomorrow (3) Pseudomonas pneumonia Impression: The chest x-ray after line placement and NG tube placement done 08/29 showed her to have an evolving pneumonia. She had been on empiric antibiotics since admission. She finished 3 days of IV azithromycin August 27 and got 5 days of Rocephin. Results of new sputum sample sent for for culture 08/29, which was a better specimen was obtained from ET tube suctioning, is growing Pseudomonas. Plan: Because her pneumonia worsened despite antibiotics, and she is immunocompromised, we ordered broaden coverage using iv cefepime, renally adjusted (4) COPD exacerbation Impression: Caused by her respiratory failure from PNA. She does not have a history of COPD in the past. She is a former smoker but quit smoking at the age of 31. Plan: As in #1 and #3. Will resume oral Mucinex for continued pulmonary She will need formal pulmonary function studies with DLCO performed when she is stabilized from this current acute episode of care. (5) AMS I checked this pt in early a.m. with good weaning parameters and clear lungs, so she was extubated this morning. After that I saw her again about an hour later, and noticed she was not answering my questions. She would just stare. Also her affect was flat. The same behavior was exhibited toward her RN. I only met her for the first time yesterday, when she was on the vent, so I have no comparison to make, from before being intubated. When visited, he told the RN this is not her usual mental status. No focal neuro deficits are noted. She is able to swallow, from RN swallow screen. Perhaps she still has persistent effects of sedatives, since she was on 2.5 days of Propofol then Precedex. Plan: Will obtain STAT head CT to eval for a stroke causing speech deficit, which would have occurred while she was on the vent. (6) Immunocompromised state due to drug therapy Impression: Due to chronic methotrexate and chronic steroid therapy. MCV is normal. She does not list folic acid on her medication list. Plan: Methotrexate currently being held. Cont oral folic acid Prednisone was stopped, she is on Solumedrol iv to help with inflammation from COPD exacerbation (7) Elevated troponin Probably caused by hypoxia caused some demand ischemia. Troponins ruled out an ND. EKG is without changes. No treatment for NSTEMI at this time. Plan: Echo was ordered, but we have no [employer] except (today is Mon)>> the Echo showed normal LV size and EF 60%, with diastolic dysfnc present, RA and RV enlargement with normal RV funtion, and elevated PA pressure of about 45 mmHg. (8) Severe protein calorie malnutrition. On examination she has significant muscle wasting, loss of subcutaneous fat. She has had less than 50% recommended intake for 2 weeks or more. And she is lost 50 pounds in the last 3 months. It looks like she has lost 33% of her body weight by looking at the medical record. Nutrition services has been working with her trying to encourage p.o. intake w/ Ensure. She was exhausted from work of btreathing and not eating very much. After intubation 08/29/22, she had an NG tube in place and we gave her ng tube feedings, as managed by nutrition services. Plan: Remove NG tube when extubated Will reassess her swallow with screen by RN We will resume a diet, will start with pured Will promote increased calories and nutrition (9) Rheumatoid Arthritis Plan: We are holding home medications: Methotrexate d/t its immunosuppresion, and her Prednisone while she is on SoluMedrol (10) Essential Tremor Plan: Will resume her home medication Propranolol LA, now that she is extubated.
--- NOTE | 2022-08-31 10:09 | XRAY Report ---
PROCEDURE: Chest 1 View X-Ray INDICATIONS: vented TECHNIQUE: One view of the chest was acquired. COMPARISON: None. FINDINGS: Surgical changes and devices: Gastric tube passes below the diaphragm. Endotracheal tube tip project s over the midthoracic trachea. Right IJ central venous catheter tip projects over the mid SVC. Lungs and pleura: Similar small pleural effusions with bibasilar atelectasis/consolidation. Similar increased pulmonary markings. Similar peribronchial cuffing. Mediastinum: Mediastinal contours appear normal. Heart size is normal. Bones and chest wall: No suspicious bony lesions. Overlying soft tissues appear unremarkable. IMPRESSION: Support devices project of the appropriate positions. Stable small pleural effusions with bibasilar atelectasis/consolidation. Stable mild pulmonary edema. Findings are concordant with preliminary interpretation provided by [facility]. Reviewed by: Jordan Milton on 08/31/2022 8:13 AM PDT Approved by: Jordan Milton on 08/31/2022 8:13 AM PDT Station ID: [id number]
[2022-08-31] MEDS: polyethylene glycoL 3350 17 GM PACKET PO SCH (11:38)
[2022-08-31] MEDS: guaiFENesin/CODEINE 5 ML UDC PO PRN ×2 (13:52→23:34)
[2022-08-31] MEDS: guaiFENesin 600 MG TABLET PO SCH ×2 (13:52→21:01)
--- NOTE | 2022-08-31 15:38 | CT Report ---
PROCEDURE: CT brain without contrast INDICATIONS: Suspect a stroke while she was intubated 3 days TECHNIQUE: Noncontrast 4.5 mm thick angled axial sections acquired from the foramen magnum to the vertex. For r adiation dose reduction, the following was used: automated exposure control, adjustment of mA and/or kV according to patient size. COMPARISON: None. FINDINGS: Image quality: Limited by motion artifact CSF spaces: Basal cisterns are patent. No extra-axial fluid collections. Ventricles are normal in size and shape. Brain: No midline shift. No intracranial masses or hemorrhage. Grace-white matter interface is norm al. Atrophy with multifocal white matter chronic ischemic change Skull and face: Calvarium and visualized facial bones are intact, without suspicious lesions. Sinuses: Bilateral maxillary sinus mucosal thickening with air-fluid levels IMPRESSION: Atrophy and chronic ischemic change and parenchymal hemorrhage or mass effect. Consider follow-up MRI of the clinical symptoms persist. Bilateral maxillary mucosal sinus disease Study limited by motion artifact. Reviewed by: Boom Sandoval MD on 08/31/2022 2:36 PM AKROBERTO Approved by: Boom Sandoval MD on 08/31/2022 2:36 PM AKDT Station ID: [id number]
[2022-08-31] MEDS: INSULIN LISPRO 300 UNIT/3 ML PEN SUBQ SCH ×2 (16:44→21:07)
--- NOTE | 2022-08-31 18:42 | XRAY Report ---
PROCEDURE: Chest for Line Placement INDICATIONS: Repositioned central line dressing TECHNIQUE: One view of the chest was acquired. COMPARISON: 08/31/2022 FINDINGS: Surgical changes and devices: Right IJ catheter is seen with the tip at the level of the mid SVC. Lungs and pleura: Increased pulmonary markings are unchanged consistent with pulmonary edema. Mediastinum: Mediastinal contours appear normal. Heart size is normal. Bones and chest wall: No suspicious bony lesions. Overlying soft tissues appear unremarkable. IMPRESSION: 1. Right IJ central line is well-positioned. 2. Pulmonary edema unchanged. Reviewed by: Bautista Birmingham on 08/31/2022 6:40 PM PDT Approved by: Bautista Birmingham on 08/31/2022 6:40 PM PDT Station ID: [id number]
[2022-08-31] MEDS: FAMOTIDINE 20 MG/2 ML VIAL IVP SCH (20:53)
[2022-08-31] MEDS: MONTELUKAST 10 MG TABLET PO SCH (20:59)
[2022-09-01] MEDS: SODIUM CHLORIDE FLUSH 0.9% 10 ML SYRINGE IVP SCH ×3 (01:10→16:51)
[2022-09-01 05:03] LABS: BASOPHILS % (AUTO) 0.3 %; HCT - HEMATOCRIT 31.5 % (37.0-47.0); LYMPHOCYTES % (AUTO) 5.8 %; MEAN CORPUSCULAR HEMOGLOBIN 29.9 pg (27.0-31.0); MEAN CORPUSCULAR HGB CONC 31.7 g/dL (32.0-36.0); MEAN CORPUSCULAR VOLUME 94.3 fL (81.0-99.0); MEAN PLATELET VOLUME 9.9 fL (7.9-10.8); MONOCYTES % (AUTO) 5.3 %; NEUTROPHILS % (AUTO) 83.6 %; PLT - PLATELET COUNT 234 10^3/uL (130-450); RED BLOOD COUNT 3.34 10^6/uL (4.20-5.40); RED CELL DISTRIBUTION WIDTH 15.2 % (12.0-15.0); WHITE BLOOD COUNT 16.3 x10^3/uL (4.8-10.8)
[2022-09-01 05:09] LABS: ABNORMAL LYMPHS % (MANUAL) 0 %
[2022-09-01 05:15] LABS: CALCIUM 8.5 mg/dL (8.5-10.3); CREATININE 0.3 mg/dL (0.4-1.0); POTASSIUM 3.5 mmol/L (3.5-5.0)
[2022-09-01 05:22] LABS: MAGNESIUM 2.2 mg/dL (1.7-2.8); PHOSPHORUS 3.3 mg/dL (2.5-4.6)
[2022-09-01 05:25] LABS: BAND NEUTROPHILS % (MANUAL) 1 %; LYMPHOCYTES # (MANUAL) 1.1 10^3/uL (1.5-3.5); LYMPHOCYTES % (MANUAL) 7 %; METAMYELOCYTES % (MANUAL) 1 %; MONOCYTES # (MANUAL) 0.5 10^3/uL (0.0-1.0); NEUTROPHILS # (MANUAL) 14.5 10^3/uL (1.5-6.6)
[2022-09-01 05:26] LABS: DIFFERENTIAL COMMENT MANUAL DIFFERENTIAL; PLATELET ESTIMATE, MANUAL NORMAL (130-450,000) (NORMAL); PLATELET MORPHOLOGY NORMAL APPEARANCE (NORMAL); RBC MORPHOLOGY (MULTIPLE) NORMAL APPEARANCE (NORMAL); WBC MORPHOLOGY (MULTIPLE) NORMAL APPEARANCE (NORMAL)
[2022-09-01] MEDS: methylPREDNISolone SUCCINATE 40 MG/ML VIAL IVP SCH ×3 (05:52→22:36)
[2022-09-01] MEDS: FUROSEMIDE 20 MG/2 ML VIAL IVP SCH ×2 (05:52→14:33)
[2022-09-01] MEDS: BUDESONIDE 0.5 MG/2 ML NEB INH SCH ×2 (07:00→20:40)
[2022-09-01] MEDS: IPRATROPIUM/ALBUTEROL 3 ML NEB INH SCH ×3 (07:00→20:40)
[2022-09-01] MEDS ORDERED: POTASSIUM CHLOR 20 MEQ/100 ML 20 MEQ/100 ML BAG IV SCH (07:00)
[2022-09-01] MEDS: FORMOTEROL FUMARATE NEB 20 MCG/2 ML INH SCH ×2 (07:00→20:40)
--- NOTE | 2022-09-01 07:45 | PROVIDER PROGRESS NOTE ---
Subjective - Subjective Pt reports feeling: Improved Subjective: She is slightly more alert, ate more of her food and was slightly more verbal, but she is still staring and appears upset and frustrated by facial expressions. Objective - Vital Signs/Intake & Output Vital Signs: Vital Signs Pulse Pulse Resp BP Pulse Ox O2 Flow Rate 09/01/22 07:01 72 26 H 2 09/01/22 07:00 66 29 H 138/59 H 98 2 09/01/22 06:51 66 28 H 130/49 L 2 09/01/22 06:00 63 27 H 173/67 H 94 2 09/01/22 05:00 78 23 150/50 H 96 2 09/01/22 04:00 71 31 H 144/55 H 96 2 Intake & Output: Intake & Output 08/29/22 08/30/22 08/31/22 09/01/22 23:59 23:59 23:59 23:59 Intake Total 3305.054 2377.098 370.001 Output Total 1115 2228 3805 1905 Balance 2190.054 149.098 -3434.999 -1905 - Objective General Appearance: positive: No acute distress, Alert, Other (Cachectic frail elderly woman) Eyes Bilateral: positive: Normal inspection ENT: positive: ENT inspection nml, No signs of dehydration, Other (Thinning hair) Neck: positive: Nml inspection, No JVD Respiratory: positive: No respiratory distress Cardiovascular: positive: Regular rate & rhythm Abdomen: positive: Non-tender, No distention Skin: positive: Warm, Dry Extremities: positive: Other (1+ edema to above knees) Neurologic/Psychiatric: positive: Disoriented to person, Disoriented to place, Disoriented to time, Slurred/abnml speech (Speaks in 1-3 word sentences very softly with a long delay between the question and her answer) - Lab Results Fish Bones: 09/01/22 04:22 09/01/22 04:22 Other Labs: Lab Results x24hrs 09/01/22 09/01/22 09/01/22 Range/Units 04:22 04:22 04:22 WBC 16.3 H (4.8-10.8) x10^3/uL RBC 3.34 L (4.20-5.40) 10^6/uL Hgb 10.0 L (12.0-16.0) g/dL Hct 31.5 L (37.0-47.0) % MCV 94.3 (81.0-99.0) fL MCH 29.9 (27.0-31.0) pg MCHC 31.7 L (32.0-36.0) g/dL RDW 15.2 H (12.0-15.0) % Plt Count 234 (130-450) 10^3/uL MPV 9.9 (7.9-10.8) fL Neut # (Auto) Not Reportable Lymph # (Auto) Not Reportable Kinney # (Auto) Not Reportable Eos # (Auto) Not Reportable Baso # (Auto) Not Reportable Absolute Nucleated RBC Not Reportable Total Counted 100 Band Neuts % (Manual) 1 (0 - 10) % Abnorm Lymph % (Manual) 0 % Metamyelocytes % 1 H ( - 0) % Nucleated RBC % Not Reportable Neutrophils # (Manual) 14.5 H (1.5-6.6) 10^3/uL Lymphocytes # (Manual) 1.1 L (1.5-3.5) 10^3/uL Monocytes # (Manual) 0.5 (0.0-1.0) 10^3/uL Eosinophils # (Manual) 0.0 (0-0.7) 10^3/uL Basophils # (Manual) 0.0 (0-0.1) 10^3/uL Differential Comment MANUAL DIFFERENTIAL WBC Morphology NORMAL APPEARANCE (NORMAL) Platelet Estimate NORMAL (130-450,000) (NORMAL) Platelet Morphology NORMAL APPEARANCE (NORMAL) RBC Morph Micro Appear NORMAL APPEARANCE (NORMAL) Sodium 138 (135-145) mmol/L Potassium 3.5 (3.5-5.0) mmol/L Chloride 99 L (101-111) mmol/L Carbon Dioxide 33 H (21-32) mmol/L Anion Gap 6.0 (6-13) BUN 19 (6-20) mg/dL Creatinine 0.3 L (0.4-1.0) mg/dL Estimated GFR (MDRD) 212 (>89) Glucose 133 H (70-100) mg/dL Calcium 8.5 (8.5-10.3) mg/dL Phosphorus 3.3 (2.5-4.6) mg/dL Magnesium 2.2 (1.7-2.8) mg/dL Prealbumin 17 L (18-45) mg/dL Assessment/Plan - Problem List (1) Acute respiratory failure with hypoxia Impression: After admission, she needed 1 L of O2 via nasal cannula. But as the day went on she had increased work of breathing, and was up to 5 L nasal cannula. An ABG done 08/28 showed her pH was worsening and she was moved to the ICU. She had a tendency to take off her nasal cannula oxygen, so we hoped that the one-to-one nursing care in ICU would help keep her oxygen on and monitor her more closely. But on 08/29 she did not do well and was in such distress that she was near having a respiratory arrest. She is a full code. As such, she was intubated, and Anesthesia put in a central line, and put in an art line. Repeat chest x-ray on 08/29 showed an increasing pneumonia. This was most likely the cause of her worsened respiratory failure, despite being on antibiotics since admission. Yesterday I increased Solu-Medrol from 40 mg to 80 mg IV TID This morning's CXR shows improvement in the infiltrates Plan: Continue current treatment of scheduled nebulizers, DuoNeb scheduled 3 times a day and Pulmicort and Perforomist 0.5 mg twice daily Continue new iv Cefepime Will start to wean down her IV Solu-Medrol dose<< eventually to Prednisone po Cont singular and Mucinex She will be moved out of the ICU today I updated the and a family friend who are both present at bedside in her room today (2) Pseudomonas pneumonia Impression: The chest x-ray done 08/29 showed her to have an evolving pneumonia. She had been on empiric antibiotics since admission. She finished 3 days of IV azithromycin August 27 and got 5 days of Rocephin. Results of new sputum sample sent for for culture 08/29, which was a better specimen was obtained from ET tube suctioning, is growing Pseudomonas. Plan: Because her pneumonia worsened despite antibiotics, and she is immunocomp romised, we ordered broaden coverage using iv cefepime, renally adjusted, continue this (3) COPD exacerbation Impression: Caused by her respiratory failure from PNA. She does not have a history of COPD in the past. She is a former smoker but quit smoking at the age of 31. Report was reviewed: her Echo done here, does show Cor Pulmonale. All labs were reviewed. Her WBC increased to 16.3 today, up from 9.6 yesterday. This is very likely due to being on high doses of IV steroids Plan: As in #1 and #2. Continue oral Mucinex for continued pulmonary Will start to wean down her IV Solu-Medrol dose from 80 TID to 40 TID to Prednisone 20mg po then 10 mg po then stop She will need formal pulmonary function studies with DLCO performed when she is stabilized from this current acute episode of care. (4) AMS After being extubated 08/31, she has just been staring after being asked a question. Also her affect is flat. When visited yesterday, he told the RN this is not her usual mental status. No focal neuro deficits are noted. She is able to swallow and is eating & drinking. On 08/[address] was done to eval for a stroke causing speech deficit/delay, and it did not show a stroke or bleed. (There is a typographic error in the Final Impression of that report dictated by Radiol, that I had to confirm by speaking with Radiol). She is slightly more verbal today but is oriented x0. She is confused overall and has pulled off her CVP dressings twice in the last 24 hours She may still have persistent effects of sedatives, since she was on 2.5 days of Propofol then Precedex. Also, last night she had insomnia and slept not at all. Possibly this insomnia is from being on high doses of steroids, and then insomnia is making her foggy. Today the and a family friend were at bedside. I asked both of them to speak to her, since maybe she would reply more quickly, but she had exactly the same long staring episodes, and 1 and 2 word answers after a long delay Plan: Will check a TSH for poss hypothyroidism Minimize sedatives but will allow meds for insomnia We will discontinue her central line, put in peripheral lines. We will discontinue her [facility] PT & OT to work with her We will do a rapid taper of her steroids since this may be giving her insomnia and then fatigue may be leading to fogginess/confusion Will order Speech Therapy eval, to recommend anything to improve the speech delay (5) Immunocompromised state due to drug therapy Impression: Due to chronic methotrexate and chronic steroid therapy. MCV is normal. She does not list folic acid on her medication list. Plan: Methotrexate currently being held. Cont oral folic acid Prednisone was stopped, she is on Solumedrol iv to help with inflammation from COPD exacerbation. Will transition, as described in #3 (6) Severe protein calorie malnutrition. On examination she has significant muscle wasting, loss of subcutaneous fat. She has had less than 50% recommended intake for 2 weeks or more. And she is lost 50 pounds in the last 3 months. It looks like she has lost 33% of her body weight by looking at the medical record. Nutrition services has been working with her trying to encourage p.o. intake w/ Ensure. She was exhausted from work of btreathing and not eating very much. After intubation 08/29/22, she had an NG tube in place and we gave her ng tube feedings, as managed by nutrition services. Removed NG tube when extubated and we resumed a pureed diet Plan: We will advance her diet Will promote increased calories and nutrition, w/ Ensure or Boost (7) Elevated troponin Probably caused by hypoxia caused some demand ischemia. Troponins ruled out an OK. EKG is without changes. No treatment for NSTEMI at this time. Echo was ordered, and the Echo showed normal LV size and EF 60%, with diastolic dysfnc present, RA and RV enlargement with normal RV funtion, and elevated PA pressure of about 45 mmHg. (8) Rheumatoid Arthritis Plan: We are holding home medications: Methotrexate d/t its immunosuppresion, and her Prednisone while she is on SoluMedrol (9) Essential Tremor We resumed her home medication Propranolol LA, now that she is extubated.
[2022-09-01] MEDS: POTASSIUM CHLOR 20 MEQ/100 ML 20 MEQ/100 ML BAG IV SCH ×2 (08:28→08:29)
[2022-09-01] MEDS: POTASSIUM CHLOR 10 MEQ/100 ML 10 MEQ/100 ML BAG IV SCH ×4 (08:45→12:15)
[2022-09-01] MEDS: ENOXAPARIN 40 MG/0.4 ML SYRINGE SUBQ SCH (08:45)
[2022-09-01] MEDS: polyethylene glycoL 3350 17 GM PACKET PO SCH (08:45)
[2022-09-01] MEDS: INSULIN LISPRO 300 UNIT/3 ML PEN SUBQ SCH ×4 (08:45→22:36)
[2022-09-01] MEDS: guaiFENesin/CODEINE 5 ML UDC PO PRN (08:46)
[2022-09-01] MEDS: CEFEPIME 1 GM in SODIUM CHLORIDE 0.9% MINIBAG 100 ML IV SCH ×2 (08:46→22:30)
[2022-09-01] MEDS: guaiFENesin 600 MG TABLET PO SCH ×2 (08:47→22:36)
[2022-09-01] MEDS: MULTIVITAMIN TABLET PO SCH (08:47)
[2022-09-01] MEDS: FOLIC ACID 1 MG TABLET NG SCH (08:47)
[2022-09-01] MEDS: CHLORHEXIDINE GLUCONATE 15 ML UDC PO SCH (08:47)
[2022-09-01] MEDS: SACCHAROMYCES BOULARDII 250 MG CAPSULE NG SCH (08:47)
[2022-09-01] MEDS: SACCHAROMYCES BOULARDII 250 MG CAPSULE PO SCH (16:51)
[2022-09-01] MEDS: FAMOTIDINE 20 MG TABLET PO SCH (22:35)
[2022-09-01] MEDS: MONTELUKAST 10 MG TABLET PO SCH (22:36)
[2022-09-02] MEDS: SODIUM CHLORIDE FLUSH 0.9% 10 ML SYRINGE IVP SCH ×4 (01:00→23:46)
[2022-09-02 05:27] LABS: BASOPHILS % (AUTO) 0.5 %; HCT - HEMATOCRIT 37.8 % (37.0-47.0); HGB - HEMOGLOBIN 12.1 g/dL (12.0-16.0); LYMPHOCYTES % (AUTO) 7.5 %; MEAN CORPUSCULAR HEMOGLOBIN 30.6 pg (27.0-31.0); MEAN CORPUSCULAR VOLUME 95.7 fL (81.0-99.0); MEAN PLATELET VOLUME 9.8 fL (7.9-10.8); MONOCYTES % (AUTO) 7.4 %; NEUTROPHILS % (AUTO) 78.6 %; PLT - PLATELET COUNT 252 10^3/uL (130-450); RED BLOOD COUNT 3.95 10^6/uL (4.20-5.40); RED CELL DISTRIBUTION WIDTH 15.3 % (12.0-15.0); WHITE BLOOD COUNT 16.4 x10^3/uL (4.8-10.8)
[2022-09-02 05:33] LABS: ABNORMAL LYMPHS % (MANUAL) 0 %; BAND NEUTROPHILS % (MANUAL) 0 %
[2022-09-02 05:49] LABS: CALCIUM 8.8 mg/dL (8.5-10.3); CREATININE 0.4 mg/dL (0.4-1.0); POTASSIUM 3.9 mmol/L (3.5-5.0)
[2022-09-02] MEDS: ZINC OXIDE 20% OINT 30 GM TUBE TOP PRN (06:09)
[2022-09-02] MEDS: FUROSEMIDE 20 MG/2 ML VIAL IVP SCH ×2 (06:10→14:58)
[2022-09-02] MEDS: SODIUM CHLORIDE FLUSH 0.9% 10 ML SYRINGE IVP PRN (06:11)
[2022-09-02 06:19] LABS: DIFFERENTIAL COMMENT MANUAL DIFFERENTIAL; LYMPHOCYTES # (MANUAL) 1.5 10^3/uL (1.5-3.5); LYMPHOCYTES % (MANUAL) 9 %; METAMYELOCYTES % (MANUAL) 1 %; MONOCYTES # (MANUAL) 1.5 10^3/uL (0.0-1.0); MYELOCYTES % (MANUAL) 1 %; NEUTROPHILS # (MANUAL) 13.1 10^3/uL (1.5-6.6); PLATELET ESTIMATE, MANUAL NORMAL (130-450,000) (NORMAL); RBC MORPHOLOGY (MULTIPLE) NORMAL APPEARANCE (NORMAL)
[2022-09-02] MEDS: IPRATROPIUM/ALBUTEROL 3 ML NEB INH SCH ×3 (07:02→18:45)
[2022-09-02] MEDS: FORMOTEROL FUMARATE NEB 20 MCG/2 ML INH SCH ×2 (07:02→18:44)
[2022-09-02] MEDS: BUDESONIDE 0.5 MG/2 ML NEB INH SCH ×2 (07:02→18:45)
[2022-09-02] MEDS ORDERED: predniSONE 20 MG TABLET PO SCH (08:00)
[2022-09-02] MEDS: FAMOTIDINE 20 MG TABLET PO SCH ×2 (08:29→20:52)
[2022-09-02] MEDS: ENOXAPARIN 40 MG/0.4 ML SYRINGE SUBQ SCH (08:29)
[2022-09-02] MEDS: MULTIVITAMIN TABLET PO SCH (08:29)
[2022-09-02] MEDS: SACCHAROMYCES BOULARDII 250 MG CAPSULE PO SCH ×2 (08:29→17:19)
[2022-09-02] MEDS: guaiFENesin 600 MG TABLET PO SCH ×2 (08:29→20:52)
[2022-09-02] MEDS: CEFEPIME 1 GM in SODIUM CHLORIDE 0.9% MINIBAG 100 ML IV SCH ×2 (08:30→20:51)
[2022-09-02] MEDS: polyethylene glycoL 3350 17 GM PACKET PO SCH (08:32)
[2022-09-02] MEDS: INSULIN LISPRO 300 UNIT/3 ML PEN SUBQ SCH ×4 (08:32→20:59)
--- NOTE | 2022-09-02 16:43 | PROVIDER PROGRESS NOTE ---
Assessment/Plan - Problem List (1) Acute respiratory failure with hypoxia Assessment/Plan: After admission, she needed increasing levels of supplemental O2 and then was moved to the ICU. She was intubated, and Anesthesia put in a central line, and an art line. Repeat chest x-ray on 08/29 showed an increasing pneumonia. This was most likely the cause of her worsened respiratory failure, despite being on an tibiotics since admission. Repeat CXR showed improvement in the infiltrates. He was able to be extubated. Her O2 needs are now by nasal cannula and she is out of the ICU Plan: Continue current treatment of scheduled nebulizers, DuoNeb scheduled 3 times a day and Pulmicort and Perforomist 0.5 mg twice daily Continue new iv Cefepime, will plan a 7-day course of broadened/appropriate antibx based on bacterial sensitivities. Continue to wean down her IV Solu-Medrol dose>> eventually to Prednisone po Cont singular and Mucinex (2) Pseudomonas pneumonia Impression: The chest x-ray done 08/29 showed her to have an evolving pneumonia. She was on empiric antibiotics and even finished 3 days of IV azithromycin August 27 and got 5 days of Rocephin. Her new sputum was a better specimen, obtained from ET tube suctioning, is growing Pseudomonas. Sensitivities are available today and it is resistant to cephalosporins, and cefepime was not tested Plan: Based on this Pseudomonas bacteria sensitivities, we will change her antibiotics to Cipro and will plan a 7-day course of this (3)Staph aureus pneumonia Her new sputum was a better specimen, obtained from ET tube suctioning, and is growing Staph aurues. It is not MRSA. Plan: Based on this Staph aureus bacteria sensitivities, we will change her antibiotics to Cipro and will plan a 7-day course of this (4) COPD exacerbation Impression: Caused by her respiratory failure from PNA and is much improved. She has not had wheezing or rhonchi for about 3 days. She does not have a history of COPD in the past, but she is a former smoker. Her Echo done here, does show Cor Pulmonale, which also suggests she has COPD. All labs were reviewed. Her WBC had increased likely due to being on high doses of IV steroids Plan: Continue oral Mucinex for continued pulmonary toilet Continue to wean down her IV Solu-Medrol dose from 80 TID to 40 TID to Prednis one 20mg po then 10 mg po daily. She was on daily prednisone before being admitted, to treat her RA. She will need formal pulmonary function studies with DLCO performed when she is stabilized from this current acute episode of care. (4) AMS After being extubated on 08/31, she was just staring at every person, after being asked a question, with a flat affect. The and a family friend visited and told us this is not her usual mental status. No focal neuro deficits were noted, but because she had this persistent AMS, a STAT head CT was done to eval for a stroke causing such speech delay, and it did not show a stroke or bleed. She remained confused like that for 2.5 days after extubation. She is much more verbal today, but still displays poor memory, for example she repeats the same answer 3 times. I suspect she had prolonged effects of her iv sedatives, Propofol then Precedex. Also, while in the ICU, she had insomnia and therefore possibly sleep deprivation made her foggy. We checked a TSH for poss hypothyroidism and it was We ordered Speech Therapy eval 2 days ago, to recommend anything to improve the speech delay. ST saw her today for the first time and had to compare today to descriptions in the chart. ST had no new recommendations and ST and I discussed that. Plan: PT & OT to increase working with her. Depending on if her fogginess clears, she may need a cognitive eval done by OT Minimize sedatives but will allow meds for insomnia Cont the rapid taper of her steroids, since this may be giving her insomnia, and then sleep deprivation may be causing confusion/poor memory. 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 Her MCV is normal. She does not list folic acid on her medication list. Plan: Methotrexate currently being held. Cont oral folic acid She has been on Solumedrol iv to help with inflammation from COPD exacerbation. Will transition, as described in #4. (6) Severe protein calorie malnutrition. On examination she has significant muscle wasting, loss of subcutaneous fat. She has had less than 50% recommended intake for 2 weeks or more. And she is lost 50 pounds in the last 3 months. It looks like she has lost 33% of her body weight by looking at the medical record. Nutrition services has been working with her trying to encourage p.o. intake w/ Ensure. She was exhausted from work of btreathing and not eating very much. After intubation 08/29/22, she had an NG tube in place and we gave her ng tube feedings for several days, as managed by nutrition services. Removed NG tube when extubated and we resumed a pureed diet Plan: We will advance her diet to solids Will promote increased calories and nutrition, w/ Ensure or Boost (7) Elevated troponin Probably caused by hypoxia caused some demand ischemia. Troponins ruled out an OR. EKG is without changes. No treatment for NSTEMI at this time. Echo was ordered, and the Echo showed normal LV size and EF 60%, with diastolic dysfnc present, RA and RV enlargement with normal RV funtion, and elevated PA pressure of about 45 mmHg. (8) Rheumatoid Arthritis Plan: We are holding home medications: Methotrexate d/t its immunosuppresion, and her Prednisone while she is on SoluMedrol (9) Essential Tremor We resumed her home medication Propranolol LA, now that she is swallowing meds - Current Meds Current Meds: Current Medications Generic Name Dose Route Start Last Admin Trade Name Freq PRN Reason Stop Dose Admin Acetaminophen 650 mg 08/25/22 20:06 08/28/22 21:41 Acetaminophen 325 Mg Tablet PO 650 mg Q4HR PRN Administration Pain 1 to 4, or Fever Albuterol 2.5 mg 08/25/22 20:06 08/28/22 13:32 Albuterol Neb 2.5 Mg/3 Ml INH 2.5 mg Q2HR PRN Administration Wheezing Albuterol/Ipratropium 3 ml 09/01/22 13:00 09/02/22 14:33 Ipratropium/Albuterol 3 Ml Neb INH 3 ml RTTID REGI Administration Budesonide 0.5 mg 08/26/22 07:00 09/02/22 07:02 Budesonide 0.5 Mg/2 Ml Neb INH 0.5 mg RTBID REGI Administration Enoxaparin Sodium 40 mg 08/26/22 09:00 09/02/22 08:29 Enoxaparin 40 Mg/0.4 Ml Syringe SUBQ 40 mg DAILY REGI Administration Famotidine 20 mg 09/01/22 21:00 09/02/22 08:29 Famotidine 20 Mg Tablet PO 20 mg BID REGI Administration Formoterol Fumarate 20 mcg 08/26/22 19:00 09/02/22 07:02 Formoterol Fumarate Neb 20 Mcg/2 Ml INH 20 mcg RTBID REGI Administration Furosemide 20 mg 08/30/22 14:00 09/02/22 14:58 Furosemide 20 Mg/2 Ml Vial IVP 20 mg BIDDIURETIC REGI Administration Guaifenesin 600 mg 08/31/22 13:00 09/02/22 08:29 Guaifenesin 600 Mg Tablet PO 600 mg BID REGI Administration Guaifenesin/Codeine Phosphate 5 ml 08/31/22 12:26 09/01/22 08:46 Guaifenesin/Codeine 5 Ml Udc PO 5 ml Q6HR PRN Administration Cough Cefepime HCl 1 gm/ Sodium 100 mls @ 200 mls/hr 09/02/22 09:00 09/02/22 09:00 Chloride IV Infused Q12H REGI Infusion Insulin Human Lispro 1 - 5 unit 08/31/22 17:00 09/02/22 13:20 Insulin Lispro 300 Unit/3 Ml Pen SUBQ Not Given 0800,1200,1700,2100 [facility] Protocol Montelukast Sodium 10 mg 08/26/22 21:00 09/01/22 22:36 Montelukast 10 Mg Tablet PO 10 mg QPM REGI Administration Multi-Ingredient Ointment 1 applic 08/27/22 07:56 09/02/22 06:09 Zinc Oxide 20% Oint 30 Gm Tube TOP 1 applic PRN PRN Administration Skin Care Multivitamins 1 tab 08/26/22 09:00 09/02/22 08:29 Multivitamin Tablet PO 1 tab DAILY REGI Administration Polyethylene Glycol 17 gm 08/31/22 11:00 09/02/22 08:32 Polyethylene Glycol 3350 17 Gm Packet PO 17 gm DAILY REGI Administration Saccharomyces Boulardii 250 mg 09/01/22 17:00 09/02/22 08:29 Saccharomyces Boulardii 250 Mg Capsule PO 250 mg BIDWM REGI Administration Sodium Chloride 10 ml 08/25/22 20:06 09/02/22 06:11 Sodium Chloride Flush 0.9% 10 Ml Syringe IVP 10 ml PRN PRN Administration NEEDED PER PROVIDER ORDERS Sodium Chloride 10 ml 08/26/22 01:00 09/02/22 08:33 Sodium Chloride Flush 0.9% 10 Ml Syringe IVP 10 ml 0100,0900,1700 [facility] Administration - Lab Result Fish Bone Diagrams: 09/04/22 05:04 09/04/22 05:04 - Additional Planning My Orders: My Active Orders 09/01/22 Dinner DIET [Soft Mechanical Diet] [DIET] 09/01/22 17:00 Saccharomyces Boulardii [Florastor] 250 mg PO BIDWM 09/01/22 21:00 Famotidine [Pepcid] 20 mg PO BID 09/02/22 09:00 Cefepime [Maxipime] 1 gm Sodium Chloride 0.9% Minibag [Normal Saline 0.9% Minibag] 100 ml IV Q12H 09/03/22 08:00 predniSONE [Deltasone] 10 mg PO DAILYWM Subjective - Subjective Patient Reports: Feeling Better, Resting Comfortably, No Complaints, Other (She cannot remember being in the ICU or the last 7 days. The last thing she remembers was getting short of breath at home and being brought into the ER by her friend.) Objective Vital Signs: Vital Signs - 24 hr 09/01/22 09/01/22 09/01/22 16:59 18:00 20:40 Temperature 37.1 C Heart Rate 90 Heart Rate [ Brachial] Heart Rate [ 88 Monitoring electrodes] Respiratory 31 H 28 H Rate Blood Pressure 159/65 H [Left Brachial artery] Blood Pressure [Right Brachial artery] Blood Pressure [Right Radial artery] O2 Saturation 97 If not protocol 1 1 : Oxygen Flow, liters/minute 09/01/22 09/01/22 09/02/22 22:00 23:32 00:10 Temperature 36.9 C 36.8 C Heart Rate Heart Rate [ 76 Brachial] Heart Rate [ 80 Monitoring electrodes] Respiratory 28 H 16 Rate Blood Pressure 153/64 H [Left Brachial artery] Blood Pressure 160/72 H [Right Brachial artery] Blood Pressure 175/65 H [Right Radial artery] O2 Saturation 94 94 If not protocol 1 : Oxygen Flow, liters/minute 09/02/22 09/02/22 09/02/22 07:06 08:25 14:34 Temperature 36.2 C L Heart Rate 93 78 Heart Rate [ 78 Brachial] Heart Rate [ Monitoring electrodes] Respiratory 94 H 16 17 Rate Blood Pressure [Left Brachial artery] Blood Pressure 139/53 H [Right Brachial artery] Blood Pressure [Right Radial artery] O2 Saturation 95 If not protocol 1 1 2 : Oxygen Flow, liters/minute 09/02/22 14:59 Temperature Heart Rate Heart Rate [ Brachial] Heart Rate [ Monitoring electrodes] Respiratory Rate Blood Pressure [Left Brachial artery] Blood Pressure 135/61 H [Right Brachial artery] Blood Pressure [Right Radial artery] O2 Saturation If not protocol : Oxygen Flow, liters/minute Oxygen O2 Source Nasal cannula I&O (Last 24 Hrs): Intake and Output Totals x24h 08/31/22 09/01/22 09/02/22 23:59 23:59 23:59 Intake Total 482.032 8672 440 Output Total 3805 2830 1100 Balance -3434.999 -1643 -900 General: Alert, Oriented x3, Other (Cachectic. Still has delayed speech but is now speaking in full sentences) HEENT: Other (Dry oral mucosa. Wearing O2 per n.c.) Neck: Supple, No JVD Neuro: Alert, Non Focal, Other (Poor memory, repeats her answers multiple times. Tensional tremor of the right hand.) Cardiovascular: No murmurs Respiratory: No respiratory distress, Breath sounds nml Abdomen: Normal bowel sounds, Soft, No tenderness Extremities: No clubbing, No edema, No tenderness/swelling - Results Results: Laboratory Results WBC 16.4 x10^3/uL (4.8-10.8) H 09/02/22 05:20 RBC 3.95 10^6/uL (4.20-5.40) L 09/02/22 05:20 Hgb 12.1 g/dL (12.0-16.0) 09/02/22 05:20 Hct 37.8 % (37.0-47.0) 09/02/22 05:20 MCV 95.7 fL (81.0-99.0) 09/02/22 05:20 MCH 30.6 pg (27.0-31.0) 09/02/22 05:20 MCHC 32.0 g/dL (32.0-36.0) 09/02/22 05:20 RDW 15.3 % (12.0-15.0) H 09/02/22 05:20 Plt Count 252 10^3/uL (130-450) 09/02/22 05:20 MPV 9.8 fL (7.9-10.8) 09/02/22 05:20 Neut # (Auto) Not Reportable 09/02/22 05:20 Lymph # (Auto) Not Reportable 09/02/22 05:20 [place] # (Auto) Not Reportable 09/02/22 05:20 Eos # (Auto) Not Reportable 09/02/22 05:20 Baso # (Auto) Not Reportable 09/02/22 05:20 Absolute Nucleated RBC Not Reportable 09/02/22 05:20 Total Counted 100 09/02/22 05:20 Band Neuts % (Manual) 0 % (0-10) 09/02/22 05:20 Abnorm Lymph % (Manual) 0 % 09/02/22 05:20 Metamyelocytes % 1 % (-0) H 09/02/22 05:20 Myelocytes % 1 % (-0) H 09/02/22 05:20 Nucleated RBC % Not Reportable 09/02/22 05:20 Neutrophils # (Manual) 13.1 10^3/uL (1.5-6.6) H 09/02/22 05:20 Lymphocytes # (Manual) 1.5 10^3/uL (1.5-3.5) 09/02/22 05:20 Monocytes # (Manual) 1.5 10^3/uL (0.0-1.0) H 09/02/22 05:20 Eosinophils # (Manual) 0.0 10^3/uL (0-0.7) 09/02/22 05:20 Basophils # (Manual) 0.0 10^3/uL (0-0.1) 09/02/22 05:20 Differential Comment MANUAL DIFFERENTIAL 09/02/22 05:20 WBC Morphology NORMAL APPEARANCE (NORMAL) 09/01/22 04:22 Platelet Estimate NORMAL (130-450,000) (NORMAL) 09/02/22 05:20 Platelet Morphology NORMAL APPEARANCE (NORMAL) 09/01/22 04:22 RBC Morph Micro Appear NORMAL APPEARANCE (NORMAL) 09/02/22 05:20 Bld Gas Analysis Time 52008/31/22 05:18 Sample Site A-LINE 08/31/22 05:18 ABG pH 7.56 (7.35-7.45) H 08/31/22 05:18 ABG pCO2 34 mmHg (34-45) 08/31/22 05:18 ABG pO2 104 mmHg (80-100) H 08/31/22 05:18 ABG HCO3 29.1 mmol/L (22.0-26.0) H 08/31/22 05:18 ABG Total CO2 30.1 MMOL/L (21.0-29.0) H 08/31/22 05:18 ABG O2 Saturation 98 % (94-98) 08/31/22 05:18 ABG Base Excess 6.8 mmol/L (-2.0-3.0) H 08/31/22 05:18 [place] Test NOT APPLICABLE 08/31/22 05:18 VBG pH 7.489 (7.31-7.41) H 08/31/22 04:15 Ionized Calcium 1.16 mmol/L (1.15-1.33) 08/31/22 04:15 Respiration Rate 18 b/min 08/31/22 05:18 O2 Delivery Device VENTILATOR 08/31/22 05:18 O2 Liters/Min 35.00 LPM 08/29/22 07:15 Vent Mode ASSIST/CONTROL 08/31/22 05:18 FiO2 40.00 08/31/22 05:18 Tidal Volume 350 mL 08/31/22 05:18 PEEP 5 cmH2O 08/31/22 05:18 Sodium 136 mmol/L (135-145) 09/02/22 05:20 Potassium 3.9 mmol/L (3.5-5.0) 09/02/22 05:20 Chloride 95 mmol/L (101-111) L 09/02/22 05:20 Carbon Dioxide 33 mmol/L (21-32) H 09/02/22 05:20 Anion Gap 8.0 (6-13) 09/02/22 05:20 BUN 19 mg/dL (6-20) 09/02/22 05:20 Creatinine 0.4 mg/dL (0.4-1.0) 09/02/22 05:20 Estimated GFR (MDRD) 152 (>89) 09/02/22 05:20 Glucose 138 mg/dL (70-100) H 09/02/22 05:20 Lactic Acid 1.7 mmol/L (0.5-2.2) 08/25/22 16:37 Calcium 8.8 mg/dL (8.5-10.3) 09/02/22 05:20 Phosphorus 3.3 mg/dL (2.5-4.6) 09/01/22 04:22 Magnesium 2.2 mg/dL (1.7-2.8) 09/01/22 04:22 Total Bilirubin 1.2 mg/dL (0.2-1.0) H 08/25/22 16:07 AST 17 IU/L (10-42) 08/25/22 16:07 ALT 15 IU/L (10-60) 08/25/22 16:07 Alkaline Phosphatase 74 IU/L (42-121) 08/25/22 16:07 Troponin I High Sens 140.7 ng/L (2.3-14.8) H* 08/26/22 07:47 B-Natriuretic Peptide 505 pg/mL (5-100) H 08/25/22 16:07 Total Protein 6.9 g/dL (6.7-8.2) 08/25/22 16:07 Albumin 3.3 g/dL (3.2-5.5) 08/25/22 16:07 Globulin 3.6 g/dL (2.1-4.2) 08/25/22 16:07 Albumin/Globulin Ratio 0.9 (1.0-2.2) L 08/25/22 16:07 Prealbumin 17 mg/dL (18-45) L 09/01/22 04:22 Triglycerides 104 mg/dL (-149) 08/30/22 04:30 Lipase 22 U/L (22-51) 08/25/22 16:07 TSH 0.93 uIU/mL (0.34-5.60) 09/02/22 05:20 Urine Color DARK YELLOW 08/29/22 11:30 Urine Clarity TURBID (CLEAR) 08/29/22 11:30 Urine pH 6.0 PH (5.0-7.5) 08/29/22 11:30 Ur Specific [place] 1.025 (1.002-1.030) 08/29/22 11:30 Urine Protein TRACE mg/dL (NEGATIVE) 08/29/22 11:30 Urine Glucose (UA) NEGATIVE mg/dL (NEGATIVE) 08/29/22 11:30 Urine Ketones 15 mg/dL (NEGATIVE) H 08/29/22 11:30 Urine Occult Blood LARGE (NEGATIVE) H 08/29/22 11:30 Urine Nitrite POSITIVE (NEGATIVE) H 08/29/22 11:30 Urine Bilirubin NEGATIVE (NEGATIVE) 08/29/22 11:30 Urine Urobilinogen 0.2 (NORMAL) E.U./dL (NORMAL) 08/29/22 11:30 Ur Leukocyte Esterase SMALL (NEGATIVE) H 08/29/22 11:30 Urine RBC 6-10 /HPF (0-5) H 08/29/22 11:30 Urine WBC 11-25 /HPF (0-5) H 08/29/22 11:30 Ur Squamous Epith Cells MANY Squamous (<= Few) H 08/29/22 11:30 Urine Bacteria Few /HPF (None Seen) 08/29/22 11:30 Ur Microscopic Review INDICATED 08/29/22 11:30 Urine Culture Comments NOT INDICATED 08/29/22 11:30 Nasal Adenovirus (PCR) NOT DETECTED 08/25/22 16:12 Nasal B. parapertussis DNA (PCR) NOT DETECTED 08/25/22 16:12 Nasal Coronavir 229E PCR NOT DETECTED 08/25/22 16:12 Nasal Coronavir HKU1 PCR NOT DETECTED 08/25/22 16:12 Nasal Coronavir NL63 PCR NOT DETECTED 08/25/22 16:12 Nasal Coronavir OC43 PCR DETECTED A 08/25/22 16:12 Nasal Enterovir/Rhinovir PCR NOT DETECTED 08/25/22 16:12 Nasal Influenza B PCR NOT DETECTED 08/25/22 16:12 Nasal Influenza A PCR NOT DETECTED 08/25/22 16:12 Nasal Parainfluen 1 PCR NOT DETECTED 08/25/22 16:12 Nasal Parainfluen 2 PCR NOT DETECTED 08/25/22 16:12 Nasal Parainfluen 3 PCR NOT DETECTED 08/25/22 16:12 Nasal Parainfluen 4 PCR NOT DETECTED 08/25/22 16:12 Nasal RSV (PCR) NOT DETECTED 08/25/22 16:12 Nasal Screen MRSA (PCR) NEGATIVE (NEGATIVE) 08/28/22 21:58 Nasal B.pertussis DNA PCR NOT DETECTED 08/25/22 16:12 Nasal C.pneumoniae (PCR) NOT DETECTED 08/25/22 16:12 Oscar Human Metapneumo PCR NOT DETECTED 08/25/22 16:12 Nasal M.pneumoniae (PCR) NOT DETECTED 08/25/22 16:12 Nasal SARS-CoV-2 (PCR) NOT DETECTED 08/25/22 16:12
[2022-09-02] MEDS: MONTELUKAST 10 MG TABLET PO SCH (20:52)
[2022-09-03] MEDS: FUROSEMIDE 20 MG/2 ML VIAL IVP SCH (05:22)
[2022-09-03 05:39] LABS: BASOPHILS % (AUTO) 0.5 %; EOSINOPHILS % (AUTO) 1.3 %; HCT - HEMATOCRIT 38.9 % (37.0-47.0); HGB - HEMOGLOBIN 12.3 g/dL (12.0-16.0); LYMPHOCYTES % (AUTO) 10.1 %; MEAN CORPUSCULAR HEMOGLOBIN 30.5 pg (27.0-31.0); MEAN CORPUSCULAR HGB CONC 31.6 g/dL (32.0-36.0); MEAN CORPUSCULAR VOLUME 96.5 fL (81.0-99.0); MEAN PLATELET VOLUME 10.2 fL (7.9-10.8); MONOCYTES % (AUTO) 8.4 %; NEUTROPHILS % (AUTO) 74.9 %; PLT - PLATELET COUNT 214 10^3/uL (130-450); RED BLOOD COUNT 4.03 10^6/uL (4.20-5.40); RED CELL DISTRIBUTION WIDTH 15.7 % (12.0-15.0); WHITE BLOOD COUNT 19.1 x10^3/uL (4.8-10.8)
[2022-09-03 05:43] LABS: ABNORMAL LYMPHS % (MANUAL) 0 %
[2022-09-03 06:10] LABS: CALCIUM 8.8 mg/dL (8.5-10.3); CREATININE 0.5 mg/dL (0.4-1.0); POTASSIUM 3.1 mmol/L (3.5-5.0)
[2022-09-03 06:35] LABS: BAND NEUTROPHILS % (MANUAL) 1 %; DIFFERENTIAL COMMENT MANUAL DIFFERENTIAL; EOSINOPHILS # (MANUAL) 0.8 10^3/uL (0-0.7); LYMPHOCYTES # (MANUAL) 3.8 10^3/uL (1.5-3.5); LYMPHOCYTES % (MANUAL) 20 %; METAMYELOCYTES % (MANUAL) 1 %; MONOCYTES # (MANUAL) 1.9 10^3/uL (0.0-1.0); MYELOCYTES % (MANUAL) 2 %; PLATELET ESTIMATE, MANUAL NORMAL (130-450,000) (NORMAL); RBC MORPHOLOGY (MULTIPLE) NORMAL APPEARANCE (NORMAL)
[2022-09-03] MEDS: BUDESONIDE 0.5 MG/2 ML NEB INH SCH ×2 (07:12→18:40)
[2022-09-03] MEDS: IPRATROPIUM/ALBUTEROL 3 ML NEB INH SCH ×3 (07:12→18:40)
[2022-09-03] MEDS: FORMOTEROL FUMARATE NEB 20 MCG/2 ML INH SCH ×2 (07:13→18:40)
[2022-09-03] MEDS: FAMOTIDINE 20 MG TABLET PO SCH ×2 (08:17→21:30)
[2022-09-03] MEDS: guaiFENesin 600 MG TABLET PO SCH ×2 (08:17→21:30)
[2022-09-03] MEDS: SACCHAROMYCES BOULARDII 250 MG CAPSULE PO SCH ×2 (08:17→17:09)
[2022-09-03] MEDS: MULTIVITAMIN TABLET PO SCH (08:18)
[2022-09-03] MEDS: predniSONE 5 MG TABLET PO SCH (08:18)
[2022-09-03] MEDS: INSULIN LISPRO 300 UNIT/3 ML PEN SUBQ SCH ×4 (08:18→21:34)
[2022-09-03] MEDS: CIPROFLOXACIN 250 MG TABLET PO SCH ×3 (08:18→21:30)
[2022-09-03] MEDS: polyethylene glycoL 3350 17 GM PACKET PO SCH (08:18)
[2022-09-03] MEDS: ENOXAPARIN 40 MG/0.4 ML SYRINGE SUBQ SCH (08:18)
[2022-09-03] MEDS: SODIUM CHLORIDE FLUSH 0.9% 10 ML SYRINGE IVP SCH ×2 (08:19→17:11)
[2022-09-03] MEDS ORDERED: POTASSIUM CHLORIDE 10 MEQ CAPSULE PO ONE (09:30)
[2022-09-03] MEDS: POTASSIUM CHLOR 10 MEQ/100 ML 10 MEQ/100 ML BAG IV SCH ×2 (10:49→12:50)
--- NOTE | 2022-09-03 17:15 | PROVIDER PROGRESS NOTE ---
Assessment/Plan - Problem List (1) Acute respiratory failure with hypoxia Assessment/Plan: After admission, she needed increasing levels of supplemental O2 and then was moved to the ICU. She was intubated, and Anesthesia put in a central line, and an art line. Repeat chest x-ray on 08/29 showed an increasing pneumonia. This was most likely the cause of her worsened respiratory failure, despite being on an tibiotics since admission. Repeat CXR showed improvement in the infiltrates. He was able to be extubated. Her O2 needs are now by nasal cannula and she is out of the ICU Plan: Continue current treatment of scheduled nebulizers, DuoNeb scheduled 3 times a day and Pulmicort and Perforomist 0.5 mg twice daily Continue iv Cefepime, will plan a 7-day course of broadened/appropriate antibx based on bacterial sensitivities. Continue to wean down her IV Solu-Medrol dose>> eventually to Prednisone po (w hich she was on for RA) Cont singular and Mucinex (2) Pseudomonas pneumonia Impression: The chest x-ray done 08/29 showed her to have an evolving pneumonia. She was on empiric antibiotics and even finished 3 days of IV azithromycin August 27 and got 5 days of Rocephin. Her new sputum was a better specimen, obtained from ET tube suctioning, is growing Pseudomonas. Sensitivities are available today and it is resistant to cephalosporins, and cefepime was not tested Plan: Based on this Pseudomonas bacteria sensitivities, I changed her antibiotics to Cipro and will plan a 7-day course of this (3)Staph aureus pneumonia Her new sputum was a better specimen, obtained from ET tube suctioning, and is growing Staph aurues. It is not MRSA. Plan: Based on this Staph aureus bacteria sensitivities, I changed her antibiotics to Cipro and will plan a 7-day course of this (4) COPD exacerbation Impression: Caused by her respiratory failure from PNA and is much improved. She has not had wheezing or rhonchi for many days. Still has a chronic wet cough She does not have a history of COPD in the past, but she is a former smoker. Her Echo done here, does show Cor Pulmonale, which also suggests she has COPD. All labs were reviewed. Her WBC had increased likely due to being on high doses of IV steroids Plan: Continue oral Mucinex for continued pulmonary toilet Continue to wean down her IV Solu-Medrol dose from 80 TID to 40 TID to Prednisone 20mg po then 10 mg po daily. She was on daily prednisone before being admitted, to treat her RA. She will need formal pulmonary function studies with DLCO performed when she is stabilized from this current acute episode of care. (5) AMS After being extubated on 08/31, she was just staring at every person, after being asked a question, with a flat affect. The and a family friend visited and told us this is not her usual mental status. No focal neuro deficits were noted, but because she had this persistent AMS, a STAT head CT was done to eval for a stroke causing such speech delay, and it did not show a stroke or bleed. She remained confused like that for 2.5 days after extubation. I first suspected she had prolonged effects of her iv sedatives, Propofol then Precedex. Also, while in the ICU, she had insomnia and therefore possibly sleep deprivation made her foggy. We checked a TSH for poss hypothyroidism and it was WNL We ordered Speech Therapy eval , to recommend anything to improve the speech delay. ST saw her for the first time when she was more verbal and had no new recommendations She is now speaking but has waxing and waning confusion, and displays poor memory, for example she repeats the same answer 3 times. PT started working with her in the ICU and now on MedSurg and PT stated that she needs maximum assistance, she has become very deconditioned from this long hospital stay Plan: PT & OT to increase working with her. She may need a cognitive eval done by OT Minimize sedatives but will allow meds for insomnia Cont the rapid taper of her steroids, since this may be giving her insomnia, and then sleep deprivation may be causing confusion/poor memory. (6) Immunocompromised state due to drug therapy Impression: Due to chronic methotrexate and chronic steroid therapy. Her MCV is normal. She does not list folic acid on her medication list. Plan: Methotrexate currently being held. Cont oral folic acid She has been on Solumedrol iv to help with inflammation from COPD exacerbation. Will transition, as described in #4. (7) Severe protein calorie malnutrition. On examination she has significant muscle wasting, loss of subcutaneous fat. She has had less than 50% recommended intake for 2 weeks or more. And she is lost 50 pounds in the last 3 months. It looks like she has lost 33% of her body weight by looking at the medical record. Nutrition services has been working with her trying to encourage p.o. intake w/ Ensure. She was exhausted from work of btreathing and not eating very much. After intubation 08/29/22, she had an NG tube in place and we gave her ng tube feedings for several days, as managed by nutrition services. After NG was removed she was started on a pured diet, ate well, the diet has been advanced to soft Plan: Will promote increased calories and nutrition, w/ Ensure or Boost (8) Elevated troponin Probably caused by hypoxia caused some demand ischemia. Troponins ruled out an ND. EKG is without changes. No treatment for NSTEMI at this time. Echo was ordered, and the Echo showed normal LV size and EF 60%, with diastolic dysfnc present, RA and RV enlargement with normal RV funtion, and elevated PA pressure of about 45 mmHg. (9) Rheumatoid Arthritis Plan: We are holding home medications: Methotrexate d/t its immunosuppresion, and her Prednisone is to be resumed (10) Essential Tremor We resumed her home medication Propranolol LA, now that she is swallowing meds - Current Meds Current Meds: Current Medications Generic Name Dose Route Start Last Admin Trade Name Freq PRN Reason Stop Dose Admin Acetaminophen 650 mg 08/25/22 20:06 08/28/22 21:41 Acetaminophen 325 Mg Tablet PO 650 mg Q4HR PRN Administration Pain 1 to 4, or Fever Albuterol 2.5 mg 08/25/22 20:06 08/28/22 13:32 Albuterol Neb 2.5 Mg/3 Ml INH 2.5 mg Q2HR PRN Administration Wheezing Albuterol/Ipratropium 3 ml 09/01/22 13:00 09/03/22 13:09 Ipratropium/Albuterol 3 Ml Neb INH Not Given RTTID REGI Budesonide 0.5 mg 08/26/22 07:00 09/03/22 07:12 Budesonide 0.5 Mg/2 Ml Neb INH 0.5 mg RTBID REGI Administration Ciprofloxacin 500 mg 09/03/22 08:00 09/03/22 08:19 Ciprofloxacin 250 Mg Tablet PO 500 mg BID REGI Administration Enoxaparin Sodium 40 mg 08/26/22 09:00 09/03/22 08:18 Enoxaparin 40 Mg/0.4 Ml Syringe SUBQ 40 mg DAILY REGI Administration Famotidine 20 mg 09/01/22 21:00 09/03/22 08:17 Famotidine 20 Mg Tablet PO 20 mg BID REGI Administration Formoterol Fumarate 20 mcg 08/26/22 19:00 09/03/22 07:13 Formoterol Fumarate Neb 20 Mcg/2 Ml INH 20 mcg RTBID REGI Administration Guaifenesin 600 mg 08/31/22 13:00 09/03/22 08:17 Guaifenesin 600 Mg Tablet PO 600 mg BID REGI Administration Guaifenesin/Codeine Phosphate 5 ml 08/31/22 12:26 09/01/22 08:46 Guaifenesin/Codeine 5 Ml Udc PO 5 ml Q6HR PRN Administration Cough Insulin Human Lispro 1 - 5 unit 08/31/22 17:00 09/03/22 17:10 Insulin Lispro 300 Unit/3 Ml Pen SUBQ Not Given 0800,1200,1700,2100 [facility] Protocol Montelukast Sodium 10 mg 08/26/22 21:00 09/02/22 20:52 Montelukast 10 Mg Tablet PO 10 mg QPM REGI Administration Multi-Ingredient Ointment 1 applic 08/27/22 07:56 09/02/22 06:09 Zinc Oxide 20% Oint 30 Gm Tube TOP 1 applic PRN PRN Administration Skin Care Multivitamins 1 tab 08/26/22 09:00 09/03/22 08:18 Multivitamin Tablet PO 1 tab DAILY REGI Administration Polyethylene Glycol 17 gm 08/31/22 11:00 09/03/22 08:18 Polyethylene Glycol 3350 17 Gm Packet PO 17 gm DAILY REGI Administration Prednisone 10 mg 09/03/22 08:00 09/03/22 08:18 Prednisone 5 Mg Tablet PO 09/04/22 12:00 10 mg DAILYWM REGI Administration Saccharomyces Boulardii 250 mg 09/01/22 17:00 09/03/22 17:09 Saccharomyces Boulardii 250 Mg Capsule PO 250 mg BIDWM REGI Administration Sodium Chloride 10 ml 08/25/22 20:06 09/02/22 06:11 Sodium Chloride Flush 0.9% 10 Ml Syringe IVP 10 ml PRN PRN Administration NEEDED PER PROVIDER ORDERS Sodium Chloride 10 ml 08/26/22 01:00 09/03/22 17:11 Sodium Chloride Flush 0.9% 10 Ml Syringe IVP 10 ml 0100,0900,1700 [facility] Administration - Lab Result Fish Bone Diagrams: 09/04/22 05:04 09/04/22 05:04 - Additional Planning My Orders: My Active Orders 09/03/22 Breakfast DIET [Low Sodium Diet] [DIET] 09/03/22 08:00 Ciprofloxacin [Cipro] 500 mg PO BID predniSONE [Deltasone] 10 mg PO DAILYWM Subjective - Subjective Patient Reports: Resting Comfortably, No Complaints Nursing Reports: Other (Poor memory waxes and wanes, per her RN) Objective Vital Signs: Vital Signs - 24 hr 09/02/22 09/02/22 09/03/22 18:45 23:34 07:15 Temperature 36.5 C Heart Rate 93 93 Heart Rate [ 86 Brachial] Respiratory 18 16 17 Rate Blood Pressure [Left Brachial artery] Blood Pressure 153/55 H [Right Brachial artery] O2 Saturation 97 If not protocol 1 1.5 : Oxygen Flow, liters/minute 09/03/22 09/03/22 07:40 16:45 Temperature 36.7 C 36.3 C L Heart Rate Heart Rate [ 106 H 89 Brachial] Respiratory 22 18 Rate Blood Pressure 137/56 H [Left Brachial artery] Blood Pressure 129/47 L [Right Brachial artery] O2 Saturation 96 96 If not protocol 1 1 : Oxygen Flow, liters/minute Oxygen O2 Source Nasal cannula I&O (Last 24 Hrs): Intake and Output Totals x24h 09/01/22 09/02/22 09/03/22 23:59 23:59 23:59 Intake Total 1050 940 780 Output Total 2830 2200 1100 Balance -1780 -1260 -320 General: Alert, Oriented x3, Other (Cachectic, disheveled) HEENT: Mucous membr. moist/pink, Other (Wearing O2 per nasal cannula) Neck: Supple, No JVD Neuro: Alert, Non Focal, Other (Has a marked tremor of both hands intermittent) Cardiovascular: Regular rate, No murmurs Respiratory: No respiratory distress, Breath sounds nml Abdomen: Soft, No tenderness Extremities: No clubbing, No edema - Results Results: Laboratory Results WBC 19.1 x10^3/uL (4.8-10.8) H 09/03/22 05:13 RBC 4.03 10^6/uL (4.20-5.40) L 09/03/22 05:13 Hgb 12.3 g/dL (12.0-16.0) 09/03/22 05:13 Hct 38.9 % (37.0-47.0) 09/03/22 05:13 MCV 96.5 fL (81.0-99.0) 09/03/22 05:13 MCH 30.5 pg (27.0-31.0) 09/03/22 05:13 MCHC 31.6 g/dL (32.0-36.0) L 09/03/22 05:13 RDW 15.7 % (12.0-15.0) H 09/03/22 05:13 Plt Count 214 10^3/uL (130-450) 09/03/22 05:13 MPV 10.2 fL (7.9-10.8) 09/03/22 05:13 Neut # (Auto) Not Reportable 09/03/22 05:13 Lymph # (Auto) Not Reportable 09/03/22 05:13 [place] # (Auto) Not Reportable 09/03/22 05:13 Eos # (Auto) Not Reportable 09/03/22 05:13 Baso # (Auto) Not Reportable 09/03/22 05:13 Absolute Nucleated RBC Not Reportable 09/03/22 05:13 Total Counted 100 09/03/22 05:13 Band Neuts % (Manual) 1 % (0-10) 09/03/22 05:13 Abnorm Lymph % (Manual) 0 % 09/03/22 05:13 Metamyelocytes % 1 % (-0) H 09/03/22 05:13 Myelocytes % 2 % (-0) H 09/03/22 05:13 Nucleated RBC % Not Reportable 09/03/22 05:13 Neutrophils # (Manual) 12.0 10^3/uL (1.5-6.6) H 09/03/22 05:13 Lymphocytes # (Manual) 3.8 10^3/uL (1.5-3.5) H 09/03/22 05:13 Monocytes # (Manual) 1.9 10^3/uL (0.0-1.0) H 09/03/22 05:13 Eosinophils # (Manual) 0.8 10^3/uL (0-0.7) H 09/03/22 05:13 Basophils # (Manual) 0.0 10^3/uL (0-0.1) 09/03/22 05:13 Differential Comment MANUAL DIFFERENTIAL 09/03/22 05:13 WBC Morphology NORMAL APPEARANCE (NORMAL) 09/01/22 04:22 Platelet Estimate NORMAL (130-450,000) (NORMAL) 09/03/22 05:13 Platelet Morphology NORMAL APPEARANCE (NORMAL) 09/01/22 04:22 RBC Morph Micro Appear NORMAL APPEARANCE (NORMAL) 09/03/22 05:13 Bld Gas Analysis Time 52008/31/22 05:18 Sample Site A-LINE 08/31/22 05:18 ABG pH 7.56 (7.35-7.45) H 08/31/22 05:18 ABG pCO2 34 mmHg (34-45) 08/31/22 05:18 ABG pO2 104 mmHg (80-100) H 08/31/22 05:18 ABG HCO3 29.1 mmol/L (22.0-26.0) H 08/31/22 05:18 ABG Total CO2 30.1 MMOL/L (21.0-29.0) H 08/31/22 05:18 ABG O2 Saturation 98 % (94-98) 08/31/22 05:18 ABG Base Excess 6.8 mmol/L (-2.0-3.0) H 08/31/22 05:18 Arden Test NOT APPLICABLE 08/31/22 05:18 VBG pH 7.489 (7.31-7.41) H 08/31/22 04:15 Ionized Calcium 1.16 mmol/L (1.15-1.33) 08/31/22 04:15 Respiration Rate 18 b/min 08/31/22 05:18 O2 Delivery Device VENTILATOR 08/31/22 05:18 O2 Liters/Min 35.00 LPM 08/29/22 07:15 Vent Mode ASSIST/CONTROL 08/31/22 05:18 FiO2 40.00 08/31/22 05:18 Tidal Volume 350 mL 08/31/22 05:18 PEEP 5 cmH2O 08/31/22 05:18 Sodium 138 mmol/L (135-145) 09/03/22 05:13 Potassium 3.1 mmol/L (3.5-5.0) L 09/03/22 05:13 Chloride 94 mmol/L (101-111) L 09/03/22 05:13 Carbon Dioxide 35 mmol/L (21-32) H 09/03/22 05:13 Anion Gap 9.0 (6-13) 09/03/22 05:13 BUN 21 mg/dL (6-20) H 09/03/22 05:13 Creatinine 0.5 mg/dL (0.4-1.0) 09/03/22 05:13 Estimated GFR (MDRD) 118 (>89) 09/03/22 05:13 Glucose 98 mg/dL (70-100) 09/03/22 05:13 Lactic Acid 1.7 mmol/L (0.5-2.2) 08/25/22 16:37 Calcium 8.8 mg/dL (8.5-10.3) 09/03/22 05:13 Phosphorus 3.3 mg/dL (2.5-4.6) 09/01/22 04:22 Magnesium 2.2 mg/dL (1.7-2.8) 09/01/22 04:22 Total Bilirubin 1.2 mg/dL (0.2-1.0) H 08/25/22 16:07 AST 17 IU/L (10-42) 08/25/22 16:07 ALT 15 IU/L (10-60) 08/25/22 16:07 Alkaline Phosphatase 74 IU/L (42-121) 08/25/22 16:07 Troponin I High Sens 140.7 ng/L (2.3-14.8) H* 08/26/22 07:47 B-Natriuretic Peptide 505 pg/mL (5-100) H 08/25/22 16:07 Total Protein 6.9 g/dL (6.7-8.2) 08/25/22 16:07 Albumin 3.3 g/dL (3.2-5.5) 08/25/22 16:07 Globulin 3.6 g/dL (2.1-4.2) 08/25/22 16:07 Albumin/Globulin Ratio 0.9 (1.0-2.2) L 08/25/22 16:07 Prealbumin 17 mg/dL (18-45) L 09/01/22 04:22 Triglycerides 104 mg/dL (-149) 08/30/22 04:30 Lipase 22 U/L (22-51) 08/25/22 16:07 TSH 0.93 uIU/mL (0.34-5.60) 09/02/22 05:20 Urine Color DARK YELLOW 08/29/22 11:30 Urine Clarity TURBID (CLEAR) 08/29/22 11:30 Urine pH 6.0 PH (5.0-7.5) 08/29/22 11:30 Ur Specific [place] 1.025 (1.002-1.030) 08/29/22 11:30 Urine Protein TRACE mg/dL (NEGATIVE) 08/29/22 11:30 Urine Glucose (UA) NEGATIVE mg/dL (NEGATIVE) 08/29/22 11:30 Urine Ketones 15 mg/dL (NEGATIVE) H 08/29/22 11:30 Urine Occult Blood LARGE (NEGATIVE) H 08/29/22 11:30 Urine Nitrite POSITIVE (NEGATIVE) H 08/29/22 11:30 Urine Bilirubin NEGATIVE (NEGATIVE) 08/29/22 11:30 Urine Urobilinogen 0.2 (NORMAL) E.U./dL (NORMAL) 08/29/22 11:30 Ur Leukocyte Esterase SMALL (NEGATIVE) H 08/29/22 11:30 Urine RBC 6-10 /HPF (0-5) H 08/29/22 11:30 Urine WBC 11-25 /HPF (0-5) H 08/29/22 11:30 Ur Squamous Epith Cells MANY Squamous (<= Few) H 08/29/22 11:30 Urine Bacteria Few /HPF (None Seen) 08/29/22 11:30 Ur Microscopic Review INDICATED 08/29/22 11:30 Urine Culture Comments NOT INDICATED 08/29/22 11:30 Nasal Adenovirus (PCR) NOT DETECTED 08/25/22 16:12 Nasal B. parapertussis DNA (PCR) NOT DETECTED 08/25/22 16:12 Nasal Coronavir 229E PCR NOT DETECTED 08/25/22 16:12 Nasal Coronavir HKU1 PCR NOT DETECTED 08/25/22 16:12 Nasal Coronavir NL63 PCR NOT DETECTED 08/25/22 16:12 Nasal Coronavir OC43 PCR DETECTED A 08/25/22 16:12 Nasal Enterovir/Rhinovir PCR NOT DETECTED 08/25/22 16:12 Nasal Influenza B PCR NOT DETECTED 08/25/22 16:12 Nasal Influenza A PCR NOT DETECTED 08/25/22 16:12 Nasal Parainfluen 1 PCR NOT DETECTED 08/25/22 16:12 Nasal Parainfluen 2 PCR NOT DETECTED 08/25/22 16:12 Nasal Parainfluen 3 PCR NOT DETECTED 08/25/22 16:12 Nasal Parainfluen 4 PCR NOT DETECTED 08/25/22 16:12 Nasal RSV (PCR) NOT DETECTED 08/25/22 16:12 Nasal Screen MRSA (PCR) NEGATIVE (NEGATIVE) 08/28/22 21:58 Nasal B.pertussis DNA PCR NOT DETECTED 08/25/22 16:12 Nasal C.pneumoniae (PCR) NOT DETECTED 08/25/22 16:12 Oscar Human Metapneumo PCR NOT DETECTED 08/25/22 16:12 Nasal M.pneumoniae (PCR) NOT DETECTED 08/25/22 16:12 Nasal SARS-CoV-2 (PCR) NOT DETECTED 08/25/22 16:12
[2022-09-03] MEDS: MONTELUKAST 10 MG TABLET PO SCH (21:30)
[2022-09-04] MEDS: SODIUM CHLORIDE FLUSH 0.9% 10 ML SYRINGE IVP SCH ×3 (02:00→16:41)
[2022-09-04 05:15] LABS: BASOPHILS % (AUTO) 0.6 %; EOSINOPHILS % (AUTO) 1.2 %; HGB - HEMOGLOBIN 11.5 g/dL (12.0-16.0); LYMPHOCYTES % (AUTO) 8.7 %; MEAN CORPUSCULAR HEMOGLOBIN 30.3 pg (27.0-31.0); MEAN CORPUSCULAR HGB CONC 31.1 g/dL (32.0-36.0); MEAN CORPUSCULAR VOLUME 97.6 fL (81.0-99.0); MEAN PLATELET VOLUME 10.6 fL (7.9-10.8); MONOCYTES % (AUTO) 8.8 %; NEUTROPHILS % (AUTO) 76.7 %; PLT - PLATELET COUNT 191 10^3/uL (130-450); RED BLOOD COUNT 3.79 10^6/uL (4.20-5.40); RED CELL DISTRIBUTION WIDTH 15.8 % (12.0-15.0); WHITE BLOOD COUNT 21.3 x10^3/uL (4.8-10.8)
[2022-09-04 05:25] LABS: ABNORMAL LYMPHS % (MANUAL) 0 %
[2022-09-04 05:26] LABS: CALCIUM 8.8 mg/dL (8.5-10.3); CREATININE 0.3 mg/dL (0.4-1.0); POTASSIUM 3.5 mmol/L (3.5-5.0)
[2022-09-04] MEDS: IPRATROPIUM/ALBUTEROL 3 ML NEB INH SCH ×3 (06:25→18:05)
[2022-09-04] MEDS: FORMOTEROL FUMARATE NEB 20 MCG/2 ML INH SCH ×2 (06:25→18:05)
[2022-09-04] MEDS: BUDESONIDE 0.5 MG/2 ML NEB INH SCH ×2 (06:25→18:05)
[2022-09-04 06:35] LABS: BAND NEUTROPHILS % (MANUAL) 4 %; EOSINOPHILS # (MANUAL) 0.2 10^3/uL (0-0.7); LYMPHOCYTES # (MANUAL) 3.2 10^3/uL (1.5-3.5); LYMPHOCYTES % (MANUAL) 15 %; MONOCYTES # (MANUAL) 1.3 10^3/uL (0.0-1.0); NEUTROPHILS # (MANUAL) 16.6 10^3/uL (1.5-6.6)
[2022-09-04 06:36] LABS: DIFFERENTIAL COMMENT MANUAL DIFFERENTIAL; PLATELET ESTIMATE, MANUAL NORMAL (130-450,000) (NORMAL); RBC MORPHOLOGY (MULTIPLE) NORMAL APPEARANCE (NORMAL)
[2022-09-04] MEDS: INSULIN LISPRO 300 UNIT/3 ML PEN SUBQ SCH ×4 (08:50→21:13)
[2022-09-04] MEDS: FAMOTIDINE 20 MG TABLET PO SCH ×2 (08:51→21:12)
[2022-09-04] MEDS: ENOXAPARIN 40 MG/0.4 ML SYRINGE SUBQ SCH (08:51)
[2022-09-04] MEDS: MULTIVITAMIN TABLET PO SCH (08:51)
[2022-09-04] MEDS: polyethylene glycoL 3350 17 GM PACKET PO SCH (08:51)
[2022-09-04] MEDS: predniSONE 5 MG TABLET PO SCH (08:51)
[2022-09-04] MEDS: guaiFENesin 600 MG TABLET PO SCH ×2 (08:51→21:12)
[2022-09-04] MEDS: SACCHAROMYCES BOULARDII 250 MG CAPSULE PO SCH ×2 (08:51→16:39)
[2022-09-04] MEDS: CIPROFLOXACIN 250 MG TABLET PO SCH ×2 (08:51→21:12)
--- NOTE | 2022-09-04 18:32 | PROVIDER PROGRESS NOTE ---
Assessment/Plan - Problem List (1) Acute respiratory failure with hypoxia Assessment/Plan: After admission, she needed increasing levels of supplemental O2 and then was moved to the ICU. She was intubated, and Anesthesia put in a central line, and an art line. Repeat chest x-ray on 08/29 showed an increasing pneumonia. This was most likely the cause of her worsened respiratory failure, despite being on an tibiotics since admission. Repeat CXR showed improvement in the infiltrates. He was able to be extubated. Her O2 needs are now by nasal cannula and she is out of the ICU Plan: Continue current treatment of scheduled nebulizers, DuoNeb scheduled 3 times a day and Pulmicort and Perforomist 0.5 mg twice daily iv Cefepime was changed to Cipro and will plan a 7-day course of broadened/appropriate antibx based on bacterial sensitivities. Continue to wean down her IV Solu-Medrol dose>> eventually to Prednisone po (which she was on for RA) Cont singular and Mucinex We will order OOB to chair for all meals so that she is more upright and not in bed. Will order incentive spirometry 3 times daily if she can follow directions in how to use it (2) Pseudomonas pneumonia Impression: The chest x-ray done 08/29 showed her to have an evolving pneumonia. She was on empiric antibiotics and even finished 3 days of IV azithromycin August 27 and got 5 days of Rocephin. Her new sputum was a better specimen, obtained from ET tube suctioning, is growing Pseudomonas. Sensitivities are available today and it is resistant to cephalosporins, and cefepime was not tested Plan: Based on this Pseudomonas bacteria sensitivities, I changed her antibiotics to Cipro and will plan a 7-day course of this (3) Staph aureus pneumonia Her new sputum was a better specimen, obtained from ET tube suctioning, and is growing Staph aurues. It is not MRSA. Plan: Based on this Staph aureus bacteria sensitivities, I changed her antibiotics to Cipro and will plan a 7-day course of this (4) COPD exacerbation Impression: Caused by her respiratory failure from PNA and is much improved. She has not had wheezing or rhonchi for many days. Still has a chronic wet cough She does not have a history of COPD in the past, but she is a former smoker. Her Echo done here, does show Cor Pulmonale, which also suggests she has COPD. All labs were reviewed. Her WBC had increased likely due to being on high doses of IV steroids Plan: Continue oral Mucinex for continued pulmonary toilet Continue to wean down her IV Solu-Medrol dose from 80 TID to 40 TID to Prednisone 20mg po then 10 mg po daily. She was on daily prednisone before being admitted, to treat her RA. She will need formal pulmonary function studies with DLCO performed when she is stabilized from this current acute episode of care. (5) AMS After being extubated on 08/31, she was just staring at every person, after being asked a question, with a flat affect. The and a family friend visited and told us this is not her usual mental status. No focal neuro deficits were noted, but because she had this persistent AMS, a STAT head CT was done to eval for a stroke causing such speech delay, and it did not show a stroke or bleed. She remained confused like that for 2.5 days after extubation. I first suspected she had prolonged effects of her iv sedatives, Propofol then Precedex. Also, while in the ICU, she had insomnia and therefore possibly sleep deprivation made her foggy. We checked a TSH for poss hypothyroidism and it was WNL We ordered Speech Therapy eval , to recommend anything to improve the speech delay. ST saw her for the first time when she was more verbal and had no new recommendations She is now speaking but has waxing and waning confusion, and displays poor memory, for example she repeats the same answer 3 times. 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 PT started working with her in the ICU and now on MedSurg and PT stated that she needs maximum assistance, she has become very deconditioned from this long hospital stay Plan: PT & OT to increase working with her. She may need a cognitive eval done by OT. Also, she required maximal assistance to get off the toilet and a SNF may be needed after this hospitalization. We will stop the low-dose of Haldol that was ordered prn insomnia, to eliminate all sedating meds. Cont the rapid taper of her steroids, since this may have given her insomnia, and then sleep deprivation may be causing confusion/poor memory. (6) Immunocompromised state due to drug therapy Impression: Due to chronic methotrexate and chronic steroid therapy. Her MCV is normal. She does not list folic acid on her medication list. Plan: Methotrexate currently being held. Cont oral folic acid She has been on Solumedrol iv to help with inflammation from COPD exacerbation. Will transition, as described in #4. (7) Severe protein calorie malnutrition. On examination she has significant muscle wasting, loss of subcutaneous fat. She has had less than 50% recommended intake for 2 weeks or more. And she is lost 50 pounds in the last 3 months. It looks like she has lost 33% of her body weight by looking at the medical record. After intubation 08/29/22, she had an NG tube in place and we gave her ng tube feedings for several days, as managed by nutrition services. After NG was removed she was started on a pured diet, ate well, the diet has been advanced to soft. Nutrition services has been working with her trying to encourage p.o. intake w/ Ensure. I first suspected that she was exhausted from work of breathing and not eating very much, but today she told me she eats this way because "her grandfather of Diabetes and she may get Diabetes". Also, one of her nurses mentioned that the patient is not interested in eating because she does not want aggressive management and wants to "go be with her sister who is in [facility]". I broached this topic today as well, asking if she wants to be a DNR and the patient answered "I want to be resuscitated, I will tell my sister in [facility] why I wanted resuscitation, when I get there" Plan: I tried to explain that eating protein is safe for her if she is worried about getting diabetes and she said she would comply with that and try to eat more Will promote increased calories and nutrition, w/ Ensure or Boost (8) Elevated troponin Probably caused by hypoxia caused some demand ischemia. Troponins ruled out an [place]. EKG is without changes. No treatment for NSTEMI at this time. Echo was ordered, and the Echo showed normal LV size and EF 60%, with diastolic dysfnc present, RA and RV enlargement with normal RV funtion, and elevated PA pressure of about 45 mmHg. (9) Rheumatoid Arthritis Plan: We are holding home medications: Methotrexate d/t its immunosuppresion, and her Prednisone is to be resumed (10) Essential Tremor We resumed her home medication Propranolol LA, now that she is swallowing meds - Current Meds Current Meds: Current Medications Generic Name Dose Route Start Last Admin Trade Name Freq PRN Reason Stop Dose Admin Acetaminophen 650 mg 08/25/22 20:06 08/28/22 21:41 Acetaminophen 325 Mg Tablet PO 650 mg Q4HR PRN Administration Pain 1 to 4, or Fever Albuterol 2.5 mg 08/25/22 20:06 08/28/22 13:32 Albuterol Neb 2.5 Mg/3 Ml INH 2.5 mg Q2HR PRN Administration Wheezing Albuterol/Ipratropium 3 ml 09/01/22 13:00 09/04/22 18:05 Ipratropium/Albuterol 3 Ml Neb INH 3 ml RTTID REGI Administration Budesonide 0.5 mg 08/26/22 07:00 09/04/22 18:05 Budesonide 0.5 Mg/2 Ml Neb INH 0.5 mg RTBID REGI Administration Ciprofloxacin 500 mg 09/03/22 08:00 09/04/22 08:51 Ciprofloxacin 250 Mg Tablet PO 500 mg BID REGI Administration Enoxaparin Sodium 40 mg 08/26/22 09:00 09/04/22 08:51 Enoxaparin 40 Mg/0.4 Ml Syringe SUBQ 40 mg DAILY REGI Administration Famotidine 20 mg 09/01/22 21:00 09/04/22 08:51 Famotidine 20 Mg Tablet PO 20 mg BID REGI Administration Formoterol Fumarate 20 mcg 08/26/22 19:00 09/04/22 18:05 Formoterol Fumarate Neb 20 Mcg/2 Ml INH 20 mcg RTBID REGI Administration Guaifenesin 600 mg 08/31/22 13:00 09/04/22 08:51 Guaifenesin 600 Mg Tablet PO 600 mg BID REGI Administration Guaifenesin/Codeine Phosphate 5 ml 08/31/22 12:26 09/01/22 08:46 Guaifenesin/Codeine 5 Ml Udc PO 5 ml Q6HR PRN Administration Cough Insulin Human Lispro 1 - 5 unit 08/31/22 17:00 09/04/22 16:40 Insulin Lispro 300 Unit/3 Ml Pen SUBQ 1 unit 0800,1200,1700,2100 REGI Administration Protocol Montelukast Sodium 10 mg 08/26/22 21:00 09/03/22 21:30 Montelukast 10 Mg Tablet PO 10 mg QPM REGI Administration Multi-Ingredient Ointment 1 applic 08/27/22 07:56 09/02/22 06:09 Zinc Oxide 20% Oint 30 Gm Tube TOP 1 applic PRN PRN Administration Skin Care Multivitamins 1 tab 08/26/22 09:00 09/04/22 08:51 Multivitamin Tablet PO 1 tab DAILY REGI Administration Polyethylene Glycol 17 gm 08/31/22 11:00 09/04/22 08:51 Polyethylene Glycol 3350 17 Gm Packet PO 17 gm DAILY REGI Administration Saccharomyces Boulardii 250 mg 09/01/22 17:00 09/04/22 16:39 Saccharomyces Boulardii 250 Mg Capsule PO 250 mg BIDWM REGI Administration Sodium Chloride 10 ml 08/25/22 20:06 09/02/22 06:11 Sodium Chloride Flush 0.9% 10 Ml Syringe IVP 10 ml PRN PRN Administration NEEDED PER PROVIDER ORDERS Sodium Chloride 10 ml 08/26/22 01:00 09/04/22 16:41 Sodium Chloride Flush 0.9% 10 Ml Syringe IVP 10 ml 0100,0900,1700 REGI Administration - Lab Result Fish Bone Diagrams: 09/04/22 05:04 09/04/22 05:04 - Additional Planning My Orders: My Active Orders 09/04/22 13:57 Nutrition Consult [CONS] Routine 09/05/22 08:00 predniSONE [Deltasone] 5 mg PO DAILYWM Subjective - Subjective Patient Reports: No Complaints Nursing Reports: Other (Very weak, needed maximal assistance to get up off the toilet. Short of breath with activity. Confusion waxes and wanes) Objective Vital Signs: Vital Signs - 24 hr 09/03/22 09/03/22 09/04/22 18:43 23:42 06:25 Temperature 36.5 C Heart Rate 98 88 Heart Rate [ 94 Brachial] Respiratory 18 20 18 Rate Blood Pressure 127/57 L [Left Brachial artery] Blood Pressure [Right Brachial artery] O2 Saturation 95 If not protocol 1 1 1 : Oxygen Flow, liters/minute 09/04/22 09/04/22 09/04/22 07:24 14:45 17:12 Temperature 36.8 C 36.4 C L Heart Rate 78 Heart Rate [ 95 102 H Brachial] Respiratory 18 18 16 Rate Blood Pressure [Left Brachial artery] Blood Pressure 132/50 H 152/56 H [Right Brachial artery] O2 Saturation 92 92 If not protocol 1 1 1 : Oxygen Flow, liters/minute 09/04/22 18:05 Temperature Heart Rate 77 Heart Rate [ Brachial] Respiratory 18 Rate Blood Pressure [Left Brachial artery] Blood Pressure [Right Brachial artery] O2 Saturation If not protocol 1 : Oxygen Flow, liters/minute Oxygen O2 Source Nasal cannula I&O (Last 24 Hrs): Intake and Output Totals x24h 09/02/22 09/03/22 09/04/22 23:59 23:59 23:59 Intake Total 940 1610 740 Output Total 2200 1750 900 Balance -1260 -140 -160 General: Alert, Oriented x3, Other (Disheveled) HEENT: EOMI, Mucous membr. moist/pink, Other (Wearing O2 per nasal cannula) Neck: Supple, No JVD Neuro: Alert, Non Focal, Other (Poor memory. Has a severe intentional tremor of both hands) Cardiovascular: Regular rate, No murmurs Respiratory: Other (Poor air movement in all lung julian but no wheezing or rales) Abdomen: Soft, No tenderness Extremities: No clubbing, No edema - Results Results: Laboratory Results WBC 21.3 x10^3/uL (4.8-10.8) H 09/04/22 05:04 RBC 3.79 10^6/uL (4.20-5.40) L 09/04/22 05:04 Hgb 11.5 g/dL (12.0-16.0) L 09/04/22 05:04 Hct 37.0 % (37.0-47.0) 09/04/22 05:04 MCV 97.6 fL (81.0-99.0) 09/04/22 05:04 MCH 30.3 pg (27.0-31.0) 09/04/22 05:04 MCHC 31.1 g/dL (32.0-36.0) L 09/04/22 05:04 RDW 15.8 % (12.0-15.0) H 09/04/22 05:04 Plt Count 191 10^3/uL (130-450) 09/04/22 05:04 MPV 10.6 fL (7.9-10.8) 09/04/22 05:04 Neut # (Auto) Not Reportable 09/04/22 05:04 Lymph # (Auto) Not Reportable 09/04/22 05:04 [place] # (Auto) Not Reportable 09/04/22 05:04 Eos # (Auto) Not Reportable 09/04/22 05:04 Baso # (Auto) Not Reportable 09/04/22 05:04 Absolute Nucleated RBC Not Reportable 09/04/22 05:04 Total Counted 100 09/04/22 05:04 Band Neuts % (Manual) 4 % (0-10) 09/04/22 05:04 Abnorm Lymph % (Manual) 0 % 09/04/22 05:04 Metamyelocytes % 1 % (-0) H 09/03/22 05:13 Myelocytes % 2 % (-0) H 09/03/22 05:13 Nucleated RBC % Not Reportable 09/04/22 05:04 Neutrophils # (Manual) 16.6 10^3/uL (1.5-6.6) H 09/04/22 05:04 Lymphocytes # (Manual) 3.2 10^3/uL (1.5-3.5) 09/04/22 05:04 Monocytes # (Manual) 1.3 10^3/uL (0.0-1.0) H 09/04/22 05:04 Eosinophils # (Manual) 0.2 10^3/uL (0-0.7) 09/04/22 05:04 Basophils # (Manual) 0.0 10^3/uL (0-0.1) 09/04/22 05:04 Differential Comment MANUAL DIFFERENTIAL 09/04/22 05:04 WBC Morphology NORMAL APPEARANCE (NORMAL) 09/01/22 04:22 Platelet Estimate NORMAL (130-450,000) (NORMAL) 09/04/22 05:04 Platelet Morphology NORMAL APPEARANCE (NORMAL) 09/01/22 04:22 RBC Morph Micro Appear NORMAL APPEARANCE (NORMAL) 09/04/22 05:04 Bld Gas Analysis Time 52008/31/22 05:18 Sample Site A-LINE 08/31/22 05:18 ABG pH 7.56 (7.35-7.45) H 08/31/22 05:18 ABG pCO2 34 mmHg (34-45) 08/31/22 05:18 ABG pO2 104 mmHg (80-100) H 08/31/22 05:18 ABG HCO3 29.1 mmol/L (22.0-26.0) H 08/31/22 05:18 ABG Total CO2 30.1 MMOL/L (21.0-29.0) H 08/31/22 05:18 ABG O2 Saturation 98 % (94-98) 08/31/22 05:18 ABG Base Excess 6.8 mmol/L (-2.0-3.0) H 08/31/22 05:18 [place]den Test NOT APPLICABLE 08/31/22 05:18 VBG pH 7.489 (7.31-7.41) H 08/31/22 04:15 Ionized Calcium 1.16 mmol/L (1.15-1.33) 08/31/22 04:15 Respiration Rate 18 b/min 08/31/22 05:18 O2 Delivery Device VENTILATOR 08/31/22 05:18 O2 Liters/Min 35.00 LPM 08/29/22 07:15 Vent Mode ASSIST/CONTROL 08/31/22 05:18 FiO2 40.00 08/31/22 05:18 Tidal Volume 350 mL 08/31/22 05:18 PEEP 5 cmH2O 08/31/22 05:18 Sodium 135 mmol/L (135-145) 09/04/22 05:04 Potassium 3.5 mmol/L (3.5-5.0) 09/04/22 05:04 Chloride 98 mmol/L (101-111) L 09/04/22 05:04 Carbon Dioxide 31 mmol/L (21-32) 09/04/22 05:04 Anion Gap 6.0 (6-13) 09/04/22 05:04 BUN 14 mg/dL (6-20) 09/04/22 05:04 Creatinine 0.3 mg/dL (0.4-1.0) L 09/04/22 05:04 Estimated GFR (MDRD) 212 (>89) 09/04/22 05:04 Glucose 116 mg/dL (70-100) H 09/04/22 05:04 Lactic Acid 1.7 mmol/L (0.5-2.2) 08/25/22 16:37 Calcium 8.8 mg/dL (8.5-10.3) 09/04/22 05:04 Phosphorus 3.3 mg/dL (2.5-4.6) 09/01/22 04:22 Magnesium 2.2 mg/dL (1.7-2.8) 09/04/22 05:04 Total Bilirubin 1.2 mg/dL (0.2-1.0) H 08/25/22 16:07 AST 17 IU/L (10-42) 08/25/22 16:07 ALT 15 IU/L (10-60) 08/25/22 16:07 Alkaline Phosphatase 74 IU/L (42-121) 08/25/22 16:07 Troponin I High Sens 140.7 ng/L (2.3-14.8) H* 08/26/22 07:47 B-Natriuretic Peptide 505 pg/mL (5-100) H 08/25/22 16:07 Total Protein 6.9 g/dL (6.7-8.2) 08/25/22 16:07 Albumin 3.3 g/dL (3.2-5.5) 08/25/22 16:07 Globulin 3.6 g/dL (2.1-4.2) 08/25/22 16:07 Albumin/Globulin Ratio 0.9 (1.0-2.2) L 08/25/22 16:07 Prealbumin 17 mg/dL (18-45) L 09/01/22 04:22 Triglycerides 104 mg/dL (-149) 08/30/22 04:30 Lipase 22 U/L (22-51) 08/25/22 16:07 TSH 0.93 uIU/mL (0.34-5.60) 09/02/22 05:20 Urine Color DARK YELLOW 08/29/22 11:30 Urine Clarity TURBID (CLEAR) 08/29/22 11:30 Urine pH 6.0 PH (5.0-7.5) 08/29/22 11:30 Ur Specific [place] 1.025 (1.002-1.030) 08/29/22 11:30 Urine Protein TRACE mg/dL (NEGATIVE) 08/29/22 11:30 Urine Glucose (UA) NEGATIVE mg/dL (NEGATIVE) 08/29/22 11:30 Urine Ketones 15 mg/dL (NEGATIVE) H 08/29/22 11:30 Urine Occult Blood LARGE (NEGATIVE) H 08/29/22 11:30 Urine Nitrite POSITIVE (NEGATIVE) H 08/29/22 11:30 Urine Bilirubin NEGATIVE (NEGATIVE) 08/29/22 11:30 Urine Urobilinogen 0.2 (NORMAL) E.U./dL (NORMAL) 08/29/22 11:30 Ur Leukocyte Esterase SMALL (NEGATIVE) H 08/29/22 11:30 Urine RBC 6-10 /HPF (0-5) H 08/29/22 11:30 Urine WBC 11-25 /HPF (0-5) H 08/29/22 11:30 Ur Squamous Epith Cells MANY Squamous (<= Few) H 08/29/22 11:30 Urine Bacteria Few /HPF (None Seen) 08/29/22 11:30 Ur Microscopic Review INDICATED 08/29/22 11:30 Urine Culture Comments NOT INDICATED 08/29/22 11:30 Nasal Adenovirus (PCR) NOT DETECTED 08/25/22 16:12 Nasal B. parapertussis DNA (PCR) NOT DETECTED 08/25/22 16:12 Nasal Coronavir 229E PCR NOT DETECTED 08/25/22 16:12 Nasal Coronavir HKU1 PCR NOT DETECTED 08/25/22 16:12 Nasal Coronavir NL63 PCR NOT DETECTED 08/25/22 16:12 Nasal Coronavir OC43 PCR DETECTED A 08/25/22 16:12 Nasal Enterovir/Rhinovir PCR NOT DETECTED 08/25/22 16:12 Nasal Influenza B PCR NOT DETECTED 08/25/22 16:12 Nasal Influenza A PCR NOT DETECTED 08/25/22 16:12 Nasal Parainfluen 1 PCR NOT DETECTED 08/25/22 16:12 Nasal Parainfluen 2 PCR NOT DETECTED 08/25/22 16:12 Nasal Parainfluen 3 PCR NOT DETECTED 08/25/22 16:12 Nasal Parainfluen 4 PCR NOT DETECTED 08/25/22 16:12 Nasal RSV (PCR) NOT DETECTED 08/25/22 16:12 Nasal Screen MRSA (PCR) NEGATIVE (NEGATIVE) 08/28/22 21:58 Nasal B.pertussis DNA PCR NOT DETECTED 08/25/22 16:12 Nasal C.pneumoniae (PCR) NOT DETECTED 08/25/22 16:12 Oscar Human Metapneumo PCR NOT DETECTED 08/25/22 16:12 Nasal M.pneumoniae (PCR) NOT DETECTED 08/25/22 16:12 Nasal SARS-CoV-2 (PCR) NOT DETECTED 08/25/22 16:12
[2022-09-04] MEDS: MONTELUKAST 10 MG TABLET PO SCH (21:13)
[2022-09-05] MEDS: ZINC OXIDE 20% OINT 30 GM TUBE TOP PRN ×2 (00:40→07:05)
[2022-09-05] MEDS: SODIUM CHLORIDE FLUSH 0.9% 10 ML SYRINGE IVP SCH ×4 (00:42→21:50)
[2022-09-05 05:21] LABS: CALCIUM 8.8 mg/dL (8.5-10.3); CREATININE 0.3 mg/dL (0.4-1.0); POTASSIUM 3.5 mmol/L (3.5-5.0)
[2022-09-05 05:53] LABS: BASOPHILS % (AUTO) 0.2 %; EOSINOPHILS % (AUTO) 1.5 %; HCT - HEMATOCRIT 35.1 % (37.0-47.0); HGB - HEMOGLOBIN 11.3 g/dL (12.0-16.0); LYMPHOCYTES % (AUTO) 9.9 %; MEAN CORPUSCULAR HEMOGLOBIN 30.8 pg (27.0-31.0); MEAN CORPUSCULAR HGB CONC 32.2 g/dL (32.0-36.0); MEAN CORPUSCULAR VOLUME 95.6 fL (81.0-99.0); MEAN PLATELET VOLUME 9.8 fL (7.9-10.8); MONOCYTES % (AUTO) 10.9 %; NEUTROPHILS % (AUTO) 73.2 %; PLT - PLATELET COUNT 211 10^3/uL (130-450); RED BLOOD COUNT 3.67 10^6/uL (4.20-5.40); RED CELL DISTRIBUTION WIDTH 15.7 % (12.0-15.0); WHITE BLOOD COUNT 16.8 x10^3/uL (4.8-10.8)
[2022-09-05 05:56] LABS: ABNORMAL LYMPHS % (MANUAL) 0 %
[2022-09-05 06:07] LABS: BAND NEUTROPHILS % (MANUAL) 1 %; DIFFERENTIAL COMMENT MANUAL DIFFERENTIAL; EOSINOPHILS # (MANUAL) 0.3 10^3/uL (0-0.7); LYMPHOCYTES # (MANUAL) 2.2 10^3/uL (1.5-3.5); LYMPHOCYTES % (MANUAL) 13 %; MONOCYTES # (MANUAL) 1.5 10^3/uL (0.0-1.0); MYELOCYTES % (MANUAL) 1 %; NEUTROPHILS # (MANUAL) 12.6 10^3/uL (1.5-6.6); PLATELET ESTIMATE, MANUAL NORMAL (130-450,000) (NORMAL); PLATELET MORPHOLOGY NORMAL APPEARANCE (NORMAL); RBC MORPHOLOGY (MULTIPLE) NORMAL APPEARANCE (NORMAL); WBC MORPHOLOGY (MULTIPLE) NORMAL APPEARANCE (NORMAL)
[2022-09-05] MEDS: IPRATROPIUM/ALBUTEROL 3 ML NEB INH SCH ×3 (07:10→18:14)
[2022-09-05] MEDS: BUDESONIDE 0.5 MG/2 ML NEB INH SCH ×2 (07:10→18:14)
[2022-09-05] MEDS: FORMOTEROL FUMARATE NEB 20 MCG/2 ML INH SCH ×2 (07:11→18:15)
[2022-09-05] MEDS: FAMOTIDINE 20 MG TABLET PO SCH ×2 (08:24→21:50)
[2022-09-05] MEDS: CIPROFLOXACIN 250 MG TABLET PO SCH ×2 (08:24→21:49)
[2022-09-05] MEDS: SACCHAROMYCES BOULARDII 250 MG CAPSULE PO SCH ×2 (08:24→16:36)
[2022-09-05] MEDS: predniSONE 5 MG TABLET PO SCH (08:24)
[2022-09-05] MEDS: INSULIN LISPRO 300 UNIT/3 ML PEN SUBQ SCH ×2 (08:24→12:43)
[2022-09-05] MEDS: MULTIVITAMIN TABLET PO SCH (08:24)
[2022-09-05] MEDS: polyethylene glycoL 3350 17 GM PACKET PO SCH (08:25)
[2022-09-05] MEDS: ENOXAPARIN 40 MG/0.4 ML SYRINGE SUBQ SCH (08:25)
[2022-09-05 13:19] LABS: ESTIMATED AVERAGE GLUCOSE 94 mg/dL (70-100); HEMOGLOBIN A1c% 4.9 % (4.27-6.07)
--- NOTE | 2022-09-05 15:04 | ADVANCE CARE PLANNING NOTE ---
Advance Care Planning - Planning Encounter Date: 09/05/22 Time: 14:00 Purpose: To establish her goals regarding activity and ADLs after being DCh from here To confirm her CODE BLUE wishes, with in the room Parties in Attendance: I spoke to the patient, at bedside and family friend at bedside Decisional Capacity of the Patient: Her decisional capacity is questionable. We have seen her ability to decide for herself wax and wane. Some days she has good memory, other days she cannot remember what she just said 10 min previously and repeats herself several times. She also insists that she is a diabetic and needs to "watch what she eats", when she in fact has malnutrition, has a BMI of 18, and is not a diabetic. Yesterday, just the patient and I had a discussion about the same questions. Today I am repeating this entire discussion with the in the room for purposes of him being present and able to help make decisions for her. - Diagnosis for Encounter (1) Severe protein-calorie malnutrition Summary: The patient says she does not eat because she is at risk of DM. - Encounter Subjective/Patient's Story: She repeats that she is at risk of DM because her Grandfather of DM complications. That is why she doesn't want to be overweight. The friend at bedside and her both said, she wanted to lose weight because of this, and that she has always been a picky eater, the makes most of the meals, and she looks forward to going out for a restaurant meal 3 times a week, but only eats half of it, brings the rest home an eats it the next day. I said she is not overweight, in fact she is emaciated at BMI of 18, and is malnourished. I reiterated that she needs more calories and protein to strengthen her muscles, and that protein is not a carb, if she is worried about DM. She said she understood and will try to take in more calories. We then spoke about her memory. I gave examples of how she is still slow to answer a question (many days after the sedation in ICU has stopped). 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 The following day, she could not remember what job she used to have, could not remember what is done in ICUs or how ventilators help people. Therefore, I told her and the and friend in the room, I suspect her memory is getting worse and that her will be the one to make decisions for her, because of that memory problem, and she agreed that he will be making decisions for her. I then asked about her usual activity at home. She mostly sits, watches TV, only walks short distances because of arthritis pain. She leans on a shopping cart but can walk in a grocery store, if her drops her off close to he entrance. She does want to be able to return to this. Then I instructed her and the friend at bedside and concurred that to get stronger to be able to walk, she needs to participate in PT, and the ost aggressive way would be to get twice daily PT at a SNF. The then said he is all for it. And when I asked the patient if she would agree to go to a SNF, since her wants that for her, she said OK. Lastly we talked about her CODE BLUE wishes. I repeated what she told me yesterday; that she does not eat because she wants to be with her sister in [facility], and I asked if she was ready for end of life therefore, and what we should do if her heart stops, and she had said she wants to be resuscitated. I asked why, since she wants to join her sister and is heading that way due to her malnutrition and failure to thrive. She answered that she "will tell her sister why she wanted to be resuscitated, when she gets there". Objective/Medical Story: The patient was admitted for resp distress, hypoxia, a pneumonia, and needed to be intubated, after extubation has showed signs of dementia, memory waxes and wanes. Her nutrition is poor, she has severe weakness from deconditioning and is not eager to work with PT. When asked about her goal she wants to return home and walk, but does not participate with PT and does not take in calories for maintaining adequate nutrition. She told her RN that "her will do everything for her". Goals of Care: She wants to remain a Full Code. She wants to be able to return home, after strengthening, so that she can do walk the short distances she did before. Plan: Will update [facility], SW and Manjinder RN, that she and family agree to have her go to a SNF for strengthening with PT and OT rehab, before returning home. Continue with Full Code status. Code Status: Attempt Resuscitation Time spent on advance care plannin
--- NOTE | 2022-09-05 20:36 | PROVIDER PROGRESS NOTE ---
Assessment/Plan - Problem List (1) Generalized weakness Assessment/Plan: Patient has a very made very little progress since starting working with PT and OT, she still requires maximum assistance at times, yesterday 2 people had to lift her off the toilet, but today she was able to take 2 steps shuffling to go from bed to a chair. Today I reviewed with the in the room and the young family friend in the room, that the best way to get her home and be able to walk which she used to do, is to work aggressively with PT and OT rehab. She nodded in agreement and the vehemently agreed. I then described why rehab in a SNF is more aggressive than having home health PT. They all agreed. Plan: Continue work with PT and OT daily I gave an updated request to [facility] and manager primary that the patient would like to be choiced to go to a SNF for PT and OT rehab (2) Severe protein-calorie malnutrition Assessment/Plan: On examination she has significant muscle wasting, loss of subcutaneous fat. She has had less than 50% recommended intake for 2 weeks or more. And she is lost 50 pounds in the last 3 months. It looks like she has lost 33% of her body weight by looking at the medical record. After intubation 08/29/22, she had an NG tube in place and we gave her ng tube feedings for several days, as managed by nutrition services. After NG was removed she was started on a pured diet, ate well, the diet has been advanced to soft. Nutrition services has been working with her trying to encourage p.o. intake w/ Ensure. I first suspected that she was exhausted from work of breathing and not eating very much, but today she told me she eats this way because "her grandfather of Diabetes and she may get Diabetes". Also, one of her nurses mentioned that the patient is not interested in eating because she does not want aggressive management and wants to "go be with her sister who is in [facility]". I broached this topic today as well, asking if she wants to be a DNR and the patient answered "I want to be resuscitated, I will tell my sister in [facility] why I wanted resuscitation, when I get there" Plan: I tried to explain that eating protein is safe for her if she is worried about getting diabetes and she said she would comply with that and try to eat more Will promote increased calories and nutrition, w/ Ensure or Boost (3) Acute respiratory failure with hypoxia After admission, she needed increasing levels of supplemental O2 and then was moved to the ICU. She was intubated, and Anesthesia put in a central line, and an art line. Repeat chest x-ray on 08/29 showed an increasing pneumonia. This was most likely the cause of her worsened respiratory failure, despite being on antibiotics since admission. Repeat CXR showed improvement in the infiltrates. He was able to be extubated. Her O2 needs are now by nasal cannula and she is out of the ICU Plan: Continue current treatment of scheduled nebulizers, DuoNeb scheduled 3 times a day and Pulmicort and Perforomist 0.5 mg twice daily iv Cefepime was changed to Cipro and will plan a 7-day course of broadened/appropriate antibx based on bacterial sensitivities. Continue to wean down her IV Solu-Medrol dose>> eventually to Prednisone po (which she was on for RA) Cont singular and Mucinex We will order OOB to chair for all meals so that she is more upright and not in bed. Will order incentive spirometry 3 times daily if she can follow directions in how to use it (4) Pseudomonas pneumonia Impression: The chest x-ray done 08/29 showed her to have an evolving pneumonia. She was on empiric antibiotics and even finished 3 days of IV azithromycin August 27 and got 5 days of Rocephin. Her new sputum was a better specimen, obtained from ET tube suctioning, is growing Pseudomonas. Sensitivities are available today and it is resistant to cephalosporins, and cefepime was not tested Plan: Based on this Pseudomonas bacteria sensitivities, I changed her antibiotics to Cipro and will plan a 7-day course of this (5) Staph aureus pneumonia Her new sputum was a better specimen, obtained from ET tube suctioning, and is growing Staph aurues. It is not MRSA. Plan: Based on this Staph aureus bacteria sensitivities, I changed her antibiotics to Cipro and will plan a 7-day course of this (6) COPD exacerbation Impression: Caused by her respiratory failure from PNA and is much improved. She has not had wheezing or rhonchi for many days. Still has a chronic wet cough She does not have a history of COPD in the past, but she is a former smoker. Her Echo done here, does show Cor Pulmonale, which also suggests she has COPD. All labs were reviewed. Her WBC had increased likely due to being on high doses of IV steroids Plan: Continue oral Mucinex for continued pulmonary toilet Continue to wean down her IV Solu-Medrol dose from 80 TID to 40 TID to Prednisone 20mg po then 10 mg po daily. She was on daily prednisone before being admitted, to treat her RA. She will need formal pulmonary function studies with DLCO performed when she is stabilized from this current acute episode of care. (7) AMS After being extubated on 08/31, she was just staring at every person, after being asked a question, with a flat affect. The and a family friend visited and told us this is not her usual mental status. No focal neuro deficits were noted, but because she had this persistent AMS, a STAT head CT was done to eval for a stroke causing such speech delay, and it did not show a stroke or bleed. She remained confused like that for 2.5 days after extubation. I first suspected she had prolonged effects of her iv sedatives, Propofol then Precedex. Also, while in the ICU, she had insomnia and therefore possibly sleep deprivation made her foggy. We checked a TSH for poss hypothyroidism and it was WNL We ordered Speech Therapy eval , to recommend anything to improve the speech delay. ST saw her for the first time when she was more verbal and had no new recommendations She is now speaking but has waxing and waning confusion, and displays poor memory, for example she repeats the same answer 3 times. 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 PT started working with her in the ICU and now on MedSurg and PT stated that she needs maximum assistance, she has become very deconditioned from this long hospital stay Plan: PT & OT to increase working with her. She may need a cognitive eval done by OT. Also, she required maximal assistance to get off the toilet and a SNF may be needed after this hospitalization. We will stop the low-dose of Haldol that was ordered prn insomnia, to eliminate all sedating meds. Cont the rapid taper of her steroids, since this may have given her insomnia, and then sleep deprivation may be causing confusion/poor memory. (8) Immunocompromised state due to drug therapy Impression: Due to chronic methotrexate and chronic steroid therapy. Her MCV is normal. She does not list folic acid on her medication list. Plan: Methotrexate currently being held. Cont oral folic acid She has been on Solumedrol iv to help with inflammation from COPD exacerbation. Will transition, as described in #4. (9) Elevated troponin Probably caused by hypoxia caused some demand ischemia. Troponins ruled out an AK. EKG is without changes. No treatment for NSTEMI at this time. Echo was ordered, and the Echo showed normal LV size and EF 60%, with diastolic dysfnc present, RA and RV enlargement with normal RV funtion, and elevated PA pressure of about 45 mmHg. (10) Rheumatoid Arthritis Plan: We are holding home medications: Methotrexate d/t its immunosuppresion, and her Prednisone is to be resumed (11) Essential Tremor We resumed her home medication Propranolol LA, now that she is swallowing meds - Current Meds Current Meds: Current Medications Generic Name Dose Route Start Last Admin Trade Name Freq PRN Reason Stop Dose Admin Acetaminophen 650 mg 08/25/22 20:06 08/28/22 21:41 Acetaminophen 325 Mg Tablet PO 650 mg Q4HR PRN Administration Pain 1 to 4, or Fever Albuterol 2.5 mg 08/25/22 20:06 08/28/22 13:32 Albuterol Neb 2.5 Mg/3 Ml INH 2.5 mg Q2HR PRN Administration Wheezing Albuterol/Ipratropium 3 ml 09/01/22 13:00 09/05/22 18:14 Ipratropium/Albuterol 3 Ml Neb INH 3 ml RTTID REGI Administration Budesonide 0.5 mg 08/26/22 07:00 09/05/22 18:14 Budesonide 0.5 Mg/2 Ml Neb INH 0.5 mg RTBID REGI Administration Ciprofloxacin 500 mg 09/03/22 08:00 09/05/22 08:24 Ciprofloxacin 250 Mg Tablet PO 500 mg BID REGI Administration Enoxaparin Sodium 40 mg 08/26/22 09:00 09/05/22 08:25 Enoxaparin 40 Mg/0.4 Ml Syringe SUBQ 40 mg DAILY REGI Administration Famotidine 20 mg 09/01/22 21:00 09/05/22 08:24 Famotidine 20 Mg Tablet PO 20 mg BID REGI Administration Formoterol Fumarate 20 mcg 08/26/22 19:00 09/05/22 18:15 Formoterol Fumarate Neb 20 Mcg/2 Ml INH Not Given RTBID REGI Guaifenesin/Codeine Phosphate 5 ml 08/31/22 12:26 09/01/22 08:46 Guaifenesin/Codeine 5 Ml Udc PO 5 ml Q6HR PRN Administration Cough Montelukast Sodium 10 mg 08/26/22 21:00 09/04/22 21:13 Montelukast 10 Mg Tablet PO 10 mg QPM REGI Administration Multi-Ingredient Ointment 1 applic 08/27/22 07:56 09/05/22 07:05 Zinc Oxide 20% Oint 30 Gm Tube TOP 1 applic PRN PRN Administration Skin Care Multivitamins 1 tab 08/26/22 09:00 09/05/22 08:24 Multivitamin Tablet PO 1 tab DAILY REGI Administration Polyethylene Glycol 17 gm 08/31/22 11:00 09/05/22 08:25 Polyethylene Glycol 3350 17 Gm Packet PO Not Given DAILY REGI Prednisone 5 mg 09/05/22 08:00 09/05/22 08:24 Prednisone 5 Mg Tablet PO 5 mg DAILYWM REGI Administration Saccharomyces Boulardii 250 mg 09/01/22 17:00 09/05/22 16:36 Saccharomyces Boulardii 250 Mg Capsule PO 250 mg BIDWM REGI Administration Sodium Chloride 10 ml 08/25/22 20:06 09/02/22 06:11 Sodium Chloride Flush 0.9% 10 Ml Syringe IVP 10 ml PRN PRN Administration NEEDED PER PROVIDER ORDERS Sodium Chloride 10 ml 08/26/22 01:00 09/05/22 16:37 Sodium Chloride Flush 0.9% 10 Ml Syringe IVP 10 ml 0100,0900,1700 REGI Administration - Lab Result Fish Bone Diagrams: 09/05/22 05:48 09/05/22 04:57 - Additional Planning My Orders: My Active Orders 09/05/22 08:00 predniSONE [Deltasone] 5 mg PO DAILYWM 09/05/22 15:51 Infection Precautions - Discon [RC] .ONCE 09/05/22 Dinner DIET [Soft Mechanical Diet] [DIET] Subjective - Subjective Patient Reports: Resting Comfortably, Other (Doesn't like the food, wants shakes) Objective Vital Signs: Vital Signs - 24 hr 09/05/22 09/05/22 09/05/22 00:21 07:11 07:35 Temperature 36.4 C L 36.0 C L Heart Rate 80 Heart Rate [ 87 Brachial] Heart Rate [ 92 Monitoring electrodes] Respiratory 16 22 22 Rate Blood Pressure 128/45 L [Left Brachial artery] Blood Pressure 145/47 H [Right Brachial artery] O2 Saturation 96 91 L If not protocol 1 1 : Oxygen Flow, liters/minute 09/05/22 09/05/22 09/05/22 13:05 15:25 18:17 Temperature 36.8 C Heart Rate 97 104 H Heart Rate [ 102 H Brachial] Heart Rate [ Monitoring electrodes] Respiratory 22 20 20 Rate Blood Pressure [Left Brachial artery] Blood Pressure 144/61 H [Right Brachial artery] O2 Saturation 95 If not protocol : Oxygen Flow, liters/minute Oxygen O2 Source Room air I&O (Last 24 Hrs): Intake and Output Totals x24h 09/03/22 09/04/22 09/05/22 23:59 23:59 23:59 Intake Total 3048 971 6267 Output Total 1750 1100 500 Balance -140 -210 860 General: Alert, Oriented x3, Other (disheveled, cachectic and frail) HEENT: Atraumatic, EOMI Neuro: Alert, Non Focal, Other (Has generalized weakness) Cardiovascular: Regular rate, No murmurs Respiratory: No respiratory distress (wearing O2 per n.c.), Wheezes (scattered wheeze and prolonged exp phase) Abdomen: Normal bowel sounds, Soft, No tenderness Extremities: No clubbing, No edema, Other (tender ant shins) - Results Results: Laboratory Results WBC 16.8 x10^3/uL (4.8-10.8) H 09/05/22 05:48 RBC 3.67 10^6/uL (4.20-5.40) L 09/05/22 05:48 Hgb 11.3 g/dL (12.0-16.0) L 09/05/22 05:48 Hct 35.1 % (37.0-47.0) L 09/05/22 05:48 MCV 95.6 fL (81.0-99.0) 09/05/22 05:48 MCH 30.8 pg (27.0-31.0) 09/05/22 05:48 MCHC 32.2 g/dL (32.0-36.0) 09/05/22 05:48 RDW 15.7 % (12.0-15.0) H 09/05/22 05:48 Plt Count 211 10^3/uL (130-450) 09/05/22 05:48 MPV 9.8 fL (7.9-10.8) 09/05/22 05:48 Neut # (Auto) Not Reportable 09/05/22 05:48 Lymph # (Auto) Not Reportable 09/05/22 05:48 [place] # (Auto) Not Reportable 09/05/22 05:48 Eos # (Auto) Not Reportable 09/05/22 05:48 Baso # (Auto) Not Reportable 09/05/22 05:48 Absolute Nucleated RBC Not Reportable 09/05/22 05:48 Total Counted 100 09/05/22 05:48 Band Neuts % (Manual) 1 % (0-10) 09/05/22 05:48 Abnorm Lymph % (Manual) 0 % 09/05/22 05:48 Metamyelocytes % 1 % (-0) H 09/03/22 05:13 Myelocytes % 1 % (-0) H 09/05/22 05:48 Nucleated RBC % Not Reportable 09/05/22 05:48 Neutrophils # (Manual) 12.6 10^3/uL (1.5-6.6) H 09/05/22 05:48 Lymphocytes # (Manual) 2.2 10^3/uL (1.5-3.5) 09/05/22 05:48 Monocytes # (Manual) 1.5 10^3/uL (0.0-1.0) H 09/05/22 05:48 Eosinophils # (Manual) 0.3 10^3/uL (0-0.7) 09/05/22 05:48 Basophils # (Manual) 0.0 10^3/uL (0-0.1) 09/05/22 05:48 Differential Comment MANUAL DIFFERENTIAL 09/05/22 05:48 WBC Morphology NORMAL APPEARANCE (NORMAL) 09/05/22 05:48 Platelet Estimate NORMAL (130-450,000) (NORMAL) 09/05/22 05:48 Platelet Morphology NORMAL APPEARANCE (NORMAL) 09/05/22 05:48 RBC Morph Micro Appear NORMAL APPEARANCE (NORMAL) 09/05/22 05:48 Bld Gas Analysis Time 52008/31/22 05:18 Sample Site A-LINE 08/31/22 05:18 ABG pH 7.56 (7.35-7.45) H 08/31/22 05:18 ABG pCO2 34 mmHg (34-45) 08/31/22 05:18 ABG pO2 104 mmHg (80-100) H 08/31/22 05:18 ABG HCO3 29.1 mmol/L (22.0-26.0) H 08/31/22 05:18 ABG Total CO2 30.1 MMOL/L (21.0-29.0) H 08/31/22 05:18 ABG O2 Saturation 98 % (94-98) 08/31/22 05:18 ABG Base Excess 6.8 mmol/L (-2.0-3.0) H 08/31/22 05:18 [place] Test NOT APPLICABLE 08/31/22 05:18 VBG pH 7.489 (7.31-7.41) H 08/31/22 04:15 Ionized Calcium 1.16 mmol/L (1.15-1.33) 08/31/22 04:15 Respiration Rate 18 b/min 08/31/22 05:18 O2 Delivery Device VENTILATOR 08/31/22 05:18 O2 Liters/Min 35.00 LPM 08/29/22 07:15 Vent Mode ASSIST/CONTROL 08/31/22 05:18 FiO2 40.00 08/31/22 05:18 Tidal Volume 350 mL 08/31/22 05:18 PEEP 5 cmH2O 08/31/22 05:18 Sodium 134 mmol/L (135-145) L 09/05/22 04:57 Potassium 3.5 mmol/L (3.5-5.0) 09/05/22 04:57 Chloride 97 mmol/L (101-111) L 09/05/22 04:57 Carbon Dioxide 30 mmol/L (21-32) 09/05/22 04:57 Anion Gap 7.0 (6-13) 09/05/22 04:57 BUN 13 mg/dL (6-20) 09/05/22 04:57 Creatinine 0.3 mg/dL (0.4-1.0) L 09/05/22 04:57 Estimated GFR (MDRD) 212 (>89) 09/05/22 04:57 Glucose 118 mg/dL (70-100) H 09/05/22 04:57 Estimat Average Glucose 94 mg/dL (70-100) 09/05/22 05:48 Hemoglobin A1c % 4.9 % (4.27-6.07) 09/05/22 05:48 Lactic Acid 1.7 mmol/L (0.5-2.2) 08/25/22 16:37 Calcium 8.8 mg/dL (8.5-10.3) 09/05/22 04:57 Phosphorus 3.3 mg/dL (2.5-4.6) 09/01/22 04:22 Magnesium 2.2 mg/dL (1.7-2.8) 09/04/22 05:04 Total Bilirubin 1.2 mg/dL (0.2-1.0) H 08/25/22 16:07 AST 17 IU/L (10-42) 08/25/22 16:07 ALT 15 IU/L (10-60) 08/25/22 16:07 Alkaline Phosphatase 74 IU/L (42-121) 08/25/22 16:07 Troponin I High Sens 140.7 ng/L (2.3-14.8) H* 08/26/22 07:47 B-Natriuretic Peptide 505 pg/mL (5-100) H 08/25/22 16:07 Total Protein 6.9 g/dL (6.7-8.2) 08/25/22 16:07 Albumin 3.3 g/dL (3.2-5.5) 08/25/22 16:07 Globulin 3.6 g/dL (2.1-4.2) 08/25/22 16:07 Albumin/Globulin Ratio 0.9 (1.0-2.2) L 08/25/22 16:07 Prealbumin 17 mg/dL (18-45) L 09/01/22 04:22 Triglycerides 104 mg/dL (-149) 08/30/22 04:30 Lipase 22 U/L (22-51) 08/25/22 16:07 TSH 0.93 uIU/mL (0.34-5.60) 09/02/22 05:20 Urine Color DARK YELLOW 08/29/22 11:30 Urine Clarity TURBID (CLEAR) 08/29/22 11:30 Urine pH 6.0 PH (5.0-7.5) 08/29/22 11:30 Ur Specific [place] 1.025 (1.002-1.030) 08/29/22 11:30 Urine Protein TRACE mg/dL (NEGATIVE) 08/29/22 11:30 Urine Glucose (UA) NEGATIVE mg/dL (NEGATIVE) 08/29/22 11:30 Urine Ketones 15 mg/dL (NEGATIVE) H 08/29/22 11:30 Urine Occult Blood LARGE (NEGATIVE) H 08/29/22 11:30 Urine Nitrite POSITIVE (NEGATIVE) H 08/29/22 11:30 Urine Bilirubin NEGATIVE (NEGATIVE) 08/29/22 11:30 Urine Urobilinogen 0.2 (NORMAL) E.U./dL (NORMAL) 08/29/22 11:30 Ur Leukocyte Esterase SMALL (NEGATIVE) H 08/29/22 11:30 Urine RBC 6-10 /HPF (0-5) H 08/29/22 11:30 Urine WBC 11-25 /HPF (0-5) H 08/29/22 11:30 Ur Squamous Epith Cells MANY Squamous (<= Few) H 08/29/22 11:30 Urine Bacteria Few /HPF (None Seen) 08/29/22 11:30 Ur Microscopic Review INDICATED 08/29/22 11:30 Urine Culture Comments NOT INDICATED 08/29/22 11:30 Nasal Adenovirus (PCR) NOT DETECTED 08/25/22 16:12 Nasal B. parapertussis DNA (PCR) NOT DETECTED 08/25/22 16:12 Nasal Coronavir 229E PCR NOT DETECTED 08/25/22 16:12 Nasal Coronavir HKU1 PCR NOT DETECTED 08/25/22 16:12 Nasal Coronavir NL63 PCR NOT DETECTED 08/25/22 16:12 Nasal Coronavir OC43 PCR DETECTED A 08/25/22 16:12 Nasal Enterovir/Rhinovir PCR NOT DETECTED 08/25/22 16:12 Nasal Influenza B PCR NOT DETECTED 08/25/22 16:12 Nasal Influenza A PCR NOT DETECTED 08/25/22 16:12 Nasal Parainfluen 1 PCR NOT DETECTED 08/25/22 16:12 Nasal Parainfluen 2 PCR NOT DETECTED 08/25/22 16:12 Nasal Parainfluen 3 PCR NOT DETECTED 08/25/22 16:12 Nasal Parainfluen 4 PCR NOT DETECTED 08/25/22 16:12 Nasal RSV (PCR) NOT DETECTED 08/25/22 16:12 Nasal Screen MRSA (PCR) NEGATIVE (NEGATIVE) 08/28/22 21:58 Nasal B.pertussis DNA PCR NOT DETECTED 08/25/22 16:12 Nasal C.pneumoniae (PCR) NOT DETECTED 08/25/22 16:12 Oscar Human Metapneumo PCR NOT DETECTED 08/25/22 16:12 Nasal M.pneumoniae (PCR) NOT DETECTED 08/25/22 16:12 Nasal SARS-CoV-2 (PCR) NOT DETECTED 08/25/22 16:12
[2022-09-05] MEDS: MONTELUKAST 10 MG TABLET PO SCH (21:50)
[2022-09-06] MEDS: BUDESONIDE 0.5 MG/2 ML NEB INH SCH (07:45)
[2022-09-06] MEDS: IPRATROPIUM/ALBUTEROL 3 ML NEB INH SCH (07:45)
[2022-09-06] MEDS: FORMOTEROL FUMARATE NEB 20 MCG/2 ML INH SCH (07:45)
[2022-09-06] MEDS: ENOXAPARIN 40 MG/0.4 ML SYRINGE SUBQ SCH (09:13)
[2022-09-06] MEDS: polyethylene glycoL 3350 17 GM PACKET PO SCH (09:13)
[2022-09-06] MEDS: CIPROFLOXACIN 250 MG TABLET PO SCH (09:14)
[2022-09-06] MEDS: SACCHAROMYCES BOULARDII 250 MG CAPSULE PO SCH (09:14)
[2022-09-06] MEDS: FAMOTIDINE 20 MG TABLET PO SCH (09:14)
[2022-09-06] MEDS: predniSONE 5 MG TABLET PO SCH (09:14)
[2022-09-06] MEDS: SODIUM CHLORIDE FLUSH 0.9% 10 ML SYRINGE IVP SCH (09:15)
[2022-09-06] MEDS: MULTIVITAMIN TABLET PO SCH (09:15)
--- NOTE | 2022-09-06 11:39 | DISCHARGE SUMMARY ---
Discharge Summary Admit Date: 08/25/22 Discharge Date: 09/06/22 Discharging Provider: Martine Gastelum MD Primary Care Provider: Navjot Burkett MD Code Status: Attempt Resuscitation Condition at Discharge: Stable Discharge Disposition: SNF DC/Xfer Discharge Facility Name: [facility] - DIAGNOSES Discharge Diagnoses with Status of Each Condition: 1. Acute respiratory failure with hypercapnia and hypoxia 2. COPD with exacerbation 3. Coronavirus infection, [id number] 4. Pseudomonas pneumonia 5. Staph aureus pneumonia 6. Metabolic encephalopathy 7. Severe protein calorie malnutrition 8. Generalized weakness 9. Immunocompromised state due to drug therapy 10. Elevated troponin on admission, resolved, demand ischemia 11. Rheumatoid arthritis 12. Essential tremor - HPI History of Present Illness: 82 yo F with PMH of Former smoker, Colon cancer in the early s/p resection, prior history of SBO, Rheumatoid Arthritis, GERD, and Essential Tremor presented to the ER with c/o 2 week h/o coryza, cough, F/C, weakness, decreased PO appetite, myalgias and fatigue. Pt and her have both had URI symptoms x 2 weeks. Pt's symptoms worsened over that past 3 days. She developed green sputum x 3 days. She does not know how long she has had Fever. Her shortness of breath increased 3 days ago, worse with activity, then worsened today, so called EMS. No abdo pain/N/V, urinary symptoms. Upon EMS arrival, SpO2 80% RA. Pt was given O2, nebs. In the ER, SpO2 80% RA, 98% 3L NC, HR 108, RR 30, WBC 32, Glc 137, BNp 505, Trop 228.7-240.1-234.7, Coronavirus OC43+. CXR: interstitial changes R>L vs airspace dz RLL EKG: NSR, STw depressions, no change from 2020. Pt was given O2, Duonebs, IVF, Rocephin/Azithromycin in the ER. - Past Medical History Cardiovascular: reports: None, Other (no history of CAD/angina/CHF.) Respiratory: reports: Pneumonia, Other (no history of COPD?Asthma.) Neuro: reports: None Endocrine/Autoimmune: reports: None GI: reports: GERD, Chronic diarrhea, Chronic constipation, Other [employer]ET [employer] OFFICER: reports: Other : reports: Incontinence HEENT: reports: Chronic vision loss Psych: reports: None Musculoskeletal: reports: Rheumatoid arthritis Derm: reports: Other (BCC on nose) MRSA Hx?: No - CONSULTS | PROCEDURES Procedures: Admission chest x-ray with chronic interstitial changes worse compared to April 17, 2020 chest x-ray. Could represent overall interval worsening versus superimposed acute airspace disease. Chest x-ray done after intubation showed increasing bibasilar/retrocardiac opacity suspicious for developing pneumonia. She did not have any pneumothorax after central line placement. Chest x-ray done on day of extubation showed increasing pulmonary edema and retrocardiac infiltrate improved. Head CT done for altered mental status after extubation had atrophy and chronic ischemic changes without parenchymal hemorrhage or mass effect. Echocardiogram was done for elevated troponin. Overall left ventricular systolic function was normal with ejection fraction of 60 to 65%. Mild right ventricular enlargement, right ventricular systolic function normal. Moderate tricuspid regurg, mild pulmonary hypertension. Mild increase left atrium, moderate increased right atria. Blood cultures without growth from August 25 Sputum culture from August 28 with Pseudomonas aeruginosa and Staphylococcus aureus - HOSPITAL COURSE Hospital Course: She was placed in supportive care for we thought was a severe viral infection causing COPD exacerbation and subsequent respiratory failure. She was also treated empirically with antibiotics for secondary bacterial pneumonia especially in view of the fact that she was immunocompromise from methotrexate for the treatment of rheumatoid arthritis. In spite of this, the patient gradually and slowly deteriorated over the next 72 hours. She had guppy breathing, but stable CO2 retention. As such she was intubated to prevent a respiratory arrest. Chest x-ray showed worsening pneumonia. And sputum cultures grew out Pseudomonas and Staph aureus. She was changed to Cipro and would finish that on September 09. She was extubated August 31. After being extubated August 31 she was almost nonverbal. Would just stare, even at her . and family stated that this is not her usual mental status. No focal neurodeficits were noted but because she had persistent altered mental status a stat CT of the head was done. There was no stroke or bleed. She remained confused for 2-1/2 days after extubation. We suspect that she has prolonged effects of her IV sedatives, propofol then Precedex. TSH was normal. Speech evaluation was done and she was able to swallow normally. She had waxing and waning confusion and displayed poor memory. PT and OT worked with her and she required maximum assist due to her severe deconditioning from being in the ICU, intubated. Her methotrexate was not resumed. She was considered continued on oral folic acid. She had an elevated troponin on admission that we felt was demand ischemia since repeat troponins were "flat". She did receive propranolol for her essential tremor. It can be significant and that it does not let her get food to her mouth. It was given August 25 through August 30. But it started being held due to bradycardia and hypotension. It has not been resumed. I would recommend that it be resumed slowly. It was initially 80 mg twice daily. I would started at 40 mg daily, then increase to her baseline depending on how she does. She has severe protein calorie malnutrition. She has significant muscle wasting, loss of subcu fat, and is eating less than 50% recommended intake for 2 weeks or more. She is lost 50 pounds in the last 3 months. By looking at the medical record she is lost 33% of her body weight by admission. We did give her NG tube feeds while she was intubated. Once NG was removed she was started on a pured diet. She shared with us that she does not want to eat very much food because her grandfather of diabetes and she is afraid of getting diabetes. Nutrition services has worked extensively with her and reassured her that at this point her loss of weight is more a danger to her overall health than the diabetes is. But the patient is not convinced and really fights this when we encouraged her to eat. She is transferred to [facility] in stable condition. Temperature is 36.9. Heart rate 95. Blood pressure 131/57. Respirations 18. She is 91 to 93% on room air. She is a 5 foot 5 inch female who weighs 49 kg. Pale, severely fatigued, and is so tired sitting up for breakfast this morning she puts her head down on the table in front of her to support her self. Coarse upper airway sounds with rhonchi. No use of accessory muscles. Regular rate and rhythm. Systolic ejection murmur in a patient with a narrow AP chest diameter. And abdomen that soft, nontender. Last bowel movement September 04. Extremities have mild trace edema around the ankles. She is a vague historian. Very silent personality that requires a bit of coaxing for her to speak to you. But she is oriented to place and why she is here. Greater than 30 minutes was spent coordinating discharge. This document was made in part using voice recognition software. While efforts are made to proofread this document, sound alike and grammatical errors may occur. - ALLERGIES Allergies/Adverse Reactions: Allergies Allergy/AdvReac Type Severity Reaction Status Date / Time meperidine HCl * AdvReac Unknown Hallucinati Verified 08/25/22 15:36 [From Demerol] ons morphine AdvReac Unknown Dizziness Verified 08/25/22 15:36 Penicillins AdvReac Unknown Rash Verified 08/25/22 15:36 Sulfa (Sulfonamide AdvReac Unknown Rash Verified 08/25/22 15:36 Antibiotics) tetracycline AdvReac Unknown Rash Verified 08/25/22 15:36 - MEDICATIONS Home Medications: Ambulatory Orders Medication Instructions Recorded Confirmed predniSONE [Deltasone] 5 mg PO DAILY 12/20/12 08/26/22 Acetaminophen [Tylenol] 650 mg PO Q4HR PRN tab 09/06/22 Albuterol 2.5 mg INH Q2HR PRN ml 09/06/22 Budesonide [Pulmicort] 0.5 mg INH RTBID ml 09/06/22 Famotidine [Pepcid] 20 mg PO BID tab 09/06/22 Formoterol Fumarate [Perforomist] 20 mcg INH RTBID ml 09/06/22 Ipratropium/Albuterol [Duoneb] 3 ml INH RTTID ml 09/06/22 Methotrexate Sodium/Pf 25 mg SUBQ MO #0 09/06/22 08/26/22 [Methotrexate 50 mg/2 ml Vial] Montelukast [Singulair] 10 mg PO QPM tab 09/06/22 Multivitamin [Theragran] 1 tab PO DAILY tab 09/06/22 Propranolol ER [Inderal LA] 80 mg PO DAILY #0 09/06/22 08/26/22 Saccharomyces Boulardii [Florastor] 250 mg PO BIDWM cap 09/06/22 Zinc Oxide 20% Oint [Zinc Oxide] 1 applic TOP PRN PRN each 09/06/22 predniSONE [Deltasone] 5 mg PO DAILYWM tab 09/06/22 - LABS Result Diagrams: 09/05/22 05:48 09/05/22 04:57
--- NOTE | 2022-09-06 11:46 | Discharge Plan ---
"Discharge Plan for SNF / [facility] - Discharge Plan And Transition Orders Problem Reviewed?: Yes Disposition: 03 SNF DC/Xfer Condition: Stable Allergies and Adverse Reactions: Allergies Allergy/AdvReac Type Severity Reaction Status Date / Time meperidine HCl * AdvReac Unknown Hallucinati Verified 08/25/22 15:36 [From Demerol] ons morphine AdvReac Unknown Dizziness Verified 08/25/22 15:36 Penicillins AdvReac Unknown Rash Verified 08/25/22 15:36 Sulfa (Sulfonamide AdvReac Unknown Rash Verified 08/25/22 15:36 Antibiotics) tetracycline AdvReac Unknown Rash Verified 08/25/22 15:36 Health Concerns: In the years past you were a 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 You came in with severe shortness of breath, and we found you to have an infection with coronavirus (non-COVID) that was causing you to have severe exacerbation of chronic obstructive lung disease. You were treated with nebulizers, steroids, antibiotics, and, in spite of this, your breathing got steadily worse. Repeat chest x-ray showed worsening pneumonia in spite of treatment with antibiotics for pneumonia. The sputum cultures of your sputum showed Pseudomonas and Staphylococcus bacteria. You had to be transferred to the intensive care unit and intubated. We breathed for you for a few days with out ventilator until you were able to breathe on your own. You are now very deconditioned, weak, and need a lot of help to return to your baseline independent status. You have reluctantly agreed to going to a skilled nursing for rehab. The rehab will consist of strengthening and mobility exercises. Plan of Treatment: Mobility and strengthening exercises until she is independent with activities of daily living, ambulation. Care Goals: To return to home Assessment: Patient is alert, oriented, reluctant to be in the hospital much less than a skilled nursing but willing to participate to get her self home - SNF / [facility] Transition Orders Admit to (Facility): [facility] Under the care of (Name): PCP is Navjot Burkett MD Discharge Diagnosis: 1. Acute respiratory failure with hypercapnia and hypoxia 2. COPD with exacerbation 3. Coronavirus infection, [id number] 4. Pseudomonas pneumonia 5. Staph aureus pneumonia 6. Metabolic encephalopathy 7. Severe protein calorie malnutrition 8. Generalized weakness 9. Immunocompromised state due to drug therapy 10. Elevated troponin on admission, resolved, demand ischemia 11. Rheumatoid arthritis 12. Essential tremor Medicare Certification Statement: I certify that [facility] care is medically necessary on a continuing basis for any of the conditions for which she/he is receiving care during hospitalization. Notify PCP of admission and forward orders to primary provider for signature. Weight on admission and: Weekly Other Notification Orders: Call PCP immediately if patient develops dyspnea, chest pain/tightness or edema. House Bowel Program: Yes Additional Bowel Program Orders: If no BM after 2 days, nurse may give M.O.M. 30ml PO PRN and/or ducolax Supp 1 AL and/or JUAN 250mg P.O., and/or senna 1-2 tabs PO. On day 3 nurse may give repeat above order until residents constipation is resolved. Annual Influenza Vaccine (between Jan 27 and August 26): Yes Two-step PPD per [facility] [phone] or approved exception documents: Yes Medication Orders: PLEASE REFER TO THE DISCHARGE MEDICATION LIST. Insulin Orders?: No - Diet Type: Geriatric Texture: Regular Liquids: Thin May have monthly special meal: Yes - Therapies | Activity Therapy: Evaluation | Treat if indicated: PT, OT Rehabilitation Potential: Return to independent living Activity: Activity as Tolerated Weight Bearing: Full Weight Assistance Devices: Walker Follow Up: Navjot Burkett MD"
[2022-09-06 12:38] VITALS: BP 130/56
== END 2022-09-06 13:15 | DRG 208 ==
LOC: EDUNIT# → SUPCPDRO 15:28 → ED 15:28 → MS2 20:06 → ICU 08-28 17:40 → MS2 09-01 19:14
PROVIDERS: ADMIT Internal Medicine; ATTEND Specialist
PROC: 0BH17EZ Insertion of Endotracheal Airway into Trachea, Via Natural or Artificial Opening (ICD-10-PCS; principal; 2022-08-29)
PROC: 5A1945Z Respiratory Ventilation, 24-96 Consecutive Hours (ICD-10-PCS; 2022-08-29)
PROC: 02HV33Z Insertion of Infusion Device into Superior Vena Cava, Percutaneous Approach (ICD-10-PCS; 2022-08-29)
DX: J18.9 Pneumonia, unspecified organism (principal); J06.9 Acute upper respiratory infection, unspecified; R09.02 Hypoxemia; J15.211 Pneumonia due to Methicillin susceptible Staphylococcus aureus; Z20.822 Contact with and (suspected) exposure to COVID-19; E43 Unspecified severe protein-calorie malnutrition; J96.02 Acute respiratory failure with hypercapnia; G93.41 Metabolic encephalopathy; Z86.16 Personal history of COVID-19; J96.01 Acute respiratory failure with hypoxia; Z68.1 Body mass index [BMI] 19.9 or less, adult; D84.821 Immunodeficiency due to drugs; I24.8 Other forms of acute ischemic heart disease; J44.0 Chronic obstructive pulmonary disease with (acute) lower respiratory infection; J44.1 Chronic obstructive pulmonary disease with (acute) exacerbation; J15.1 Pneumonia due to Pseudomonas; Z87.891 Personal history of nicotine dependence; B34.2 Coronavirus infection, unspecified; R53.1 Weakness; M06.9 Rheumatoid arthritis, unspecified; Z79.631 Long term (current) use of antimetabolite agent; G25.0 Essential tremor; Z85.038 Personal history of other malignant neoplasm of large intestine; Z90.49 Acquired absence of other specified parts of digestive tract; K21.9 Gastro-esophageal reflux disease without esophagitis; I27.20 Pulmonary hypertension, unspecified; R41.82 Altered mental status, unspecified; I95.9 Hypotension, unspecified; R00.1 Bradycardia, unspecified; M62.50 Muscle wasting and atrophy, not elsewhere classified, unspecified site; R32 Unspecified urinary incontinence; R15.9 Full incontinence of feces; I27.81 Cor pulmonale (chronic); Z78.1 Physical restraint status
CPT/HCPCS: 36415; 36600; 70450; 71045; 80048; 80053; 81001; 82330; 82803; 83036; 83605; 83690; 83735; 83880; 84100; 84132; 84134; 84443; 84478; 84484; 85025; 87040; 87070; 87150; 87181; 87205; 87633; 92523; 93005; 93306; 94002; 94003; 94640; 96365; 96375; 97162; 97164; 97167; 97530; 97535; 99284; 99285; A9270; J1650; J7512; J7626; 81003; 87086; 94770

== ENCOUNTER 2022-09-06 13:14 | Outpatient (CLI) | payer MEDICARE, OTHER | END 2022-09-06 23:59 | LOC: EMS 13:14 | PROVIDERS: ATTEND Specialist | DX: J18.9 Pneumonia, unspecified organism (principal); R09.02 Hypoxemia; Z74.01 Bed confinement status | CPT/HCPCS: A0425; A0428 ==

== ENCOUNTER 2022-09-09 08:00 | Outpatient (CLI) | payer MEDICARE, OTHER ==
[2022-09-09 20:09] LABS: BASOPHILS % (AUTO) 0.3 %; EOSINOPHILS % (AUTO) 0.2 %; HCT - HEMATOCRIT 36.9 % (37.0-47.0); HGB - HEMOGLOBIN 11.9 g/dL (12.0-16.0); LYMPHOCYTES % (AUTO) 8.9 %; MEAN CORPUSCULAR HEMOGLOBIN 30.4 pg (27.0-31.0); MEAN CORPUSCULAR HGB CONC 32.2 g/dL (32.0-36.0); MEAN CORPUSCULAR VOLUME 94.4 fL (81.0-99.0); MONOCYTES % (AUTO) 9.2 %; NEUTROPHILS % (AUTO) 80.4 %; PLT - PLATELET COUNT 319 10^3/uL (130-450); RED BLOOD COUNT 3.91 10^6/uL (4.20-5.40); RED CELL DISTRIBUTION WIDTH 16.2 % (12.0-15.0); WHITE BLOOD COUNT 16.5 x10^3/uL (4.8-10.8)
[2022-09-09 20:13] LABS: ABNORMAL LYMPHS % (MANUAL) 0 %; BAND NEUTROPHILS % (MANUAL) 0 %
[2022-09-09 20:20] LABS: ALBUMIN 3.1 g/dL (3.2-5.5); BILIRUBIN,TOTAL 0.5 mg/dL (0.2-1.0); CALCIUM 9.5 mg/dL (8.5-10.3); CREATININE 0.5 mg/dL (0.4-1.0); POTASSIUM 3.2 mmol/L (3.5-5.0); TOTAL PROTEIN 6.1 g/dL (6.7-8.2)
[2022-09-09 20:38] LABS: LYMPHOCYTES # (MANUAL) 0.8 10^3/uL (1.5-3.5); LYMPHOCYTES % (MANUAL) 5 %; MONOCYTES # (MANUAL) 1.3 10^3/uL (0.0-1.0); NEUTROPHILS # (MANUAL) 14.4 10^3/uL (1.5-6.6)
[2022-09-09 20:39] LABS: DIFFERENTIAL COMMENT MANUAL DIFFERENTIAL; PLATELET ESTIMATE, MANUAL NORMAL (130-450,000) (NORMAL); PLATELET MORPHOLOGY NORMAL APPEARANCE (NORMAL); RBC MORPHOLOGY (MULTIPLE) NORMAL APPEARANCE (NORMAL)
== END 2022-09-09 23:56 | disposition home or self-care (01) ==
LOC: LAB.R 08:00
PROVIDERS: ATTEND Registered Nurse
DX: R68.89 Other general symptoms and signs (principal); Z13.228 Encounter for screening for other metabolic disorders; D64.9 Anemia, unspecified; E87.8 Other disorders of electrolyte and fluid balance, not elsewhere classified
CPT/HCPCS: 80053; 85025

== ENCOUNTER 2022-09-15 12:25 | Outpatient (CLI) | payer MEDICARE, OTHER ==
[2022-09-15 12:32] LABS: BASOPHILS % (AUTO) 0.4 %; EOSINOPHILS % (AUTO) 0.2 %; HCT - HEMATOCRIT 44.6 % (37.0-47.0); HGB - HEMOGLOBIN 14.2 g/dL (12.0-16.0); LYMPHOCYTES # (AUTO) 0.9 10^3/uL (1.5-3.5); LYMPHOCYTES % (AUTO) 8.3 %; MEAN CORPUSCULAR HEMOGLOBIN 29.9 pg (27.0-31.0); MEAN CORPUSCULAR HGB CONC 31.8 g/dL (32.0-36.0); MEAN CORPUSCULAR VOLUME 93.9 fL (81.0-99.0); MEAN PLATELET VOLUME 9.2 fL (7.9-10.8); MONOCYTES # (AUTO) 0.3 10^3/uL (0.0-1.0); MONOCYTES % (AUTO) 3.2 %; NEUTROPHILS % (AUTO) 87.5 %; PLT - PLATELET COUNT 256 10^3/uL (130-450); RED BLOOD COUNT 4.75 10^6/uL (4.20-5.40); RED CELL DISTRIBUTION WIDTH 15.5 % (12.0-15.0); WHITE BLOOD COUNT 10.3 x10^3/uL (4.8-10.8)
[2022-09-15 12:42] LABS: CREATININE 0.4 mg/dL (0.4-1.0)
--- NOTE | 2022-09-15 14:18 | XRAY Report ---
PROCEDURE: Chest 2 View X-Ray INDICATIONS: SOB TECHNIQUE: 2 views of the chest were acquired. COMPARISON: Chest x-ray 08/31/2022 FINDINGS: Surgical changes and devices: None. Lungs and pleura: No pleural effusions or pneumothorax. Rounded opacity overlying the lateral left u pper lobe scapula is present measuring 1 cm. This has been present since 2018 Mediastinum: Mediastinal contours appear normal. Heart size is normal. Bones and chest wall: No suspicious bony lesions. Overlying soft tissues appear unremarkable. IMPRESSION: No effusions or consolidations. Left upper lobe rounded opacity stable since 2018. Reviewed by: Sheryl Le MD on 09/15/2022 2:16 PM PDT Approved by: Sheryl Le MD on 09/15/2022 2:16 PM PDT Station ID: [id number]
== END 2022-09-15 12:26 | disposition home or self-care (01) ==
LOC: LAB 12:25
PROVIDERS: ATTEND Registered Nurse
DX: D72.829 Elevated white blood cell count, unspecified (principal); J18.9 Pneumonia, unspecified organism; R06.02 Shortness of breath
CPT/HCPCS: 36415; 80048; 85025

== ENCOUNTER 2022-09-22 14:15 | Outpatient (CLI) | payer MEDICARE, OTHER ==
[2022-09-22 14:34] LABS: CALCIUM 9.5 mg/dL (8.5-10.3); CREATININE 0.3 mg/dL (0.4-1.0); POTASSIUM 3.1 mmol/L (3.5-5.0)
== END 2022-09-22 14:16 | disposition home or self-care (01) ==
LOC: LAB.R 14:15
PROVIDERS: ATTEND Registered Nurse
DX: E87.6 Hypokalemia (principal)
CPT/HCPCS: 80048

== ENCOUNTER 2022-09-28 14:16 | Outpatient (CLI) | payer MEDICARE, OTHER | END 2022-09-28 23:59 | disposition EMS.NT | LOC: EMS 14:16 | DX: Z03.89 Encounter for observation for other suspected diseases and conditions ruled out (principal); Z74.1 Need for assistance with personal care ==

== ENCOUNTER 2022-10-10 18:22 | Outpatient (CLI) | payer MEDICARE, OTHER | END 2022-10-10 18:23 | disposition critical access hospital (66) | LOC: EMS 18:22 | DX: R53.1 Weakness (principal); R50.9 Fever, unspecified | CPT/HCPCS: A0425; A0429 ==

== ENCOUNTER 2022-10-10 18:40 | Inpatient (IN) | payer MEDICARE, OTHER ==
--- OUTSIDE RECORDS SUMMARY | 2022-10-10 19:01 | EXTERNAL MEDICAL SUMMARY RPT | Continuity of Care Document ---
Author Name Unknown Address [address] [place] [address] Phone Organization [facility] Address [address] [place] [address] Phone Care Team Providers Care Safety Instructor Name Role Phone Jeri Adam Unavailable Unavailable Allergies and Intolerances date description facility type (no date) Sulfa (Sulfonamide Antibiotics) [facility] (unknown) (no date) Tetracyclines [facility] (unknown) (no date) penicillin G [facility] (unknown) Medications date description facility 2022-08-17 00:00 Benzonatate [facility] Problems date description facility 2022-08-17 00:00 Coronavirus infection [facility] 2022-08-17 00:00 Cough [facility] 2022-08-22 09:21 [facility], [facility] Procedures date description facility 2022-08-17 00:00 X-ray of chest, two views [facility] Results/Labs test date author facility value unit interpretation Result panel 1 (unknown) (no date) (unknown) [facility] (no value) (units unknown) (unknown) Result panel 2 (unknown) (no date) (unknown) [facility] (no value) (units unknown) (unknown) Result panel 3 (unknown) (no date) (unknown) [facility] (no value) (units unknown) (unknown) Result panel 4 (unknown) (no date) (unknown) [facility] (no value) (units unknown) (unknown) Result panel 5 (unknown) (no date) (unknown) [facility] (no value) (units unknown) (unknown) Result panel 6 (unknown) (no date) (unknown) [facility] (no value) (units unknown) (unknown) Result panel 7 (unknown) (no date) (unknown) [facility] (no value) (units unknown) (unknown) Result panel 8 (unknown) (no date) (unknown) [facility] (no value) (units unknown) (unknown) Result panel 9 (unknown) (no date) (unknown) [facility] (no value) (units unknown) (unknown) Result panel 10 (unknown) (no date) (unknown) [facility] (no value) (units unknown) (unknown) Result panel 11 (unknown) (no date) (unknown) [facility] (no value) (units unknown) (unknown) Result panel 12 (unknown) (no date) (unknown) [facility] (no value) (units unknown) (unknown) Result panel 13 (unknown) (no date) (unknown) [facility] (no value) (units unknown) (unknown) Result panel 14 (unknown) (no date) (unknown) [facility] (no value) (units unknown) (unknown) Result panel 15 (unknown) (no date) (unknown) [facility] (no value) (units unknown) (unknown) Result panel 16 (unknown) (no date) (unknown) [facility] (no value) (units unknown) (unknown) Result panel 17 (unknown) (no date) (unknown) [facility] (no value) (units unknown) (unknown) Result panel 18 (unknown) (no date) (unknown) [facility] (no value) (units unknown) (unknown) Result panel 19 (unknown) (no date) (unknown) [facility] (no value) (units unknown) (unknown) Result panel 20 (unknown) (no date) (unknown) [facility] (no value) (units unknown) (unknown) Result panel 21 (unknown) (no date) (unknown) [facility] (no value) (units unknown) (unknown) Result panel 22 (unknown) (no date) (unknown) [facility] (no value) (units unknown) (unknown) Result panel 23 (unknown) (no date) (unknown) [facility] (no value) (units unknown) (unknown) Result panel 24 (unknown) (no date) (unknown) [facility] (no value) (units unknown) (unknown) Result panel 25 (unknown) (no date) (unknown) [facility] (no value) (units unknown) (unknown) Result panel 26 (unknown) (no date) (unknown) [facility] (no value) (units unknown) (unknown) Result panel 27 (unknown) (no date) (unknown) [facility] (no value) (units unknown) (unknown) Result panel 28 (unknown) (no date) (unknown) [facility] (no value) (units unknown) (unknown) Result panel 29 (unknown) (no date) (unknown) [facility] (no value) (units unknown) (unknown) Result panel 30 (unknown) (no date) (unknown) [facility] (no value) (units unknown) (unknown) Result panel 31 (unknown) (no date) (unknown) [facility] (no value) (units unknown) (unknown) Result panel 32 (unknown) (no date) (unknown) [facility] (no value) (units unknown) (unknown) Result panel 33 (unknown) (no date) (unknown) [facility] (no value) (units unknown) (unknown) Result panel 34 (unknown) (no date) (unknown) [facility] (no value) (units unknown) (unknown) Result panel 35 (unknown) (no date) (unknown) [facility] (no value) (units unknown) (unknown) Result panel 36 (unknown) (no date) (unknown) [facility] (no value) (units unknown) (unknown) Result panel 37 (unknown) (no date) (unknown) [facility] (no value) (units unknown) (unknown) Result panel 38 (unknown) (no date) (unknown) [facility] (no value) (units unknown) (unknown) Result panel 39 (unknown) (no date) (unknown) [facility] (no value) (units unknown) (unknown) Result panel 40 (unknown) (no date) (unknown) [facility] (no value) (units unknown) (unknown) Result panel 41 (unknown) (no date) (unknown) [facility] (no value) (units unknown) (unknown) Result panel 42 (unknown) (no date) (unknown) [facility] (no value) (units unknown) (unknown) Result panel 43 (unknown) (no date) (unknown) [facility] (no value) (units unknown) (unknown) Result panel 44 (unknown) (no date) (unknown) [facility] (no value) (units unknown) (unknown) Result panel 45 (unknown) (no date) (unknown) [facility] (no value) (units unknown) (unknown) Result panel 46 (unknown) (no date) (unknown) [facility] (no value) (units unknown) (unknown) Result panel 47 (unknown) (no date) (unknown) [facility] (units unknown) (unknown) Result panel 48 (unknown) (no date) (unknown) [facility] (no value) (units unknown) (unknown) Result panel 49 (unknown) (no date) (unknown) [facility] (no value) (units unknown) (unknown) Result panel 50 (unknown) (no date) (unknown) [facility] (no value) (units unknown) (unknown) Result panel 51 (unknown) (no date) (unknown) [facility] (no value) (units unknown) (unknown) Result panel 52 (unknown) (no date) (unknown) [facility] (no value) (units unknown) (unknown) Result panel 53 (unknown) (no date) (unknown) [facility] (no value) (units unknown) (unknown) Result panel 54 (unknown) (no date) (unknown) [facility] (no value) (units unknown) (unknown) Result panel 55 (unknown) (no date) (unknown) [facility] (no value) (units unknown) (unknown) Result panel 56 (unknown) (no date) (unknown) [facility] (no value) (units unknown) (unknown) Result panel 57 (unknown) (no date) (unknown) [facility] (no value) (units unknown) (unknown) Result panel 58 (unknown) (no date) (unknown) [facility] (no value) (units unknown) (unknown) Result panel 59 (unknown) (no date) (unknown) [facility] (no value) (units unknown) (unknown) Result panel 60 (unknown) (no date) (unknown) [facility] (no value) (units unknown) (unknown) Result panel 61 (unknown) (no date) (unknown) [facility] (no value) (units unknown) (unknown) Result panel 62 (unknown) (no date) (unknown) [facility] (no value) (units unknown) (unknown) Result panel 63 (unknown) (no date) (unknown) [facility] (no value) (units unknown) (unknown) Result panel 64 (unknown) (no date) (unknown) [facility] (no value) (units unknown) (unknown) Result panel 65 (unknown) (no date) (unknown) [facility] (no value) (units unknown) (unknown) Result panel 66 (unknown) (no date) (unknown) [facility] (no value) (units unknown) (unknown) Result panel 67 (unknown) (no date) (unknown) [facility] (no value) (units unknown) (unknown) Result panel 68 (unknown) (no date) (unknown) [facility] (no value) (units unknown) (unknown) Result panel 69 (unknown) (no date) (unknown) [facility] (no value) (units unknown) (unknown) Result panel 70 (unknown) (no date) (unknown) [facility] (no value) (units unknown) (unknown) Result panel 71 (unknown) (no date) (unknown) [facility] (no value) (units unknown) (unknown) Result panel 72 (unknown) (no date) (unknown) [facility] (no value) (units unknown) (unknown) Result panel 73 (unknown) (no date) (unknown) [facility] (no value) (units unknown) (unknown) Result panel 74 (unknown) (no date) (unknown) [facility] (no value) (units unknown) (unknown) Result panel 75 (unknown) (no date) (unknown) [facility] (no value) (units unknown) (unknown) Result panel 76 (unknown) (no date) (unknown) [facility] (no value) (units unknown) (unknown) Result panel 77 (unknown) (no date) (unknown) [facility] (no value) (units unknown) (unknown) Result panel 78 (unknown) (no date) (unknown) [facility] (no value) (units unknown) (unknown) Result panel 79 (unknown) (no date) (unknown) [facility] (no value) (units unknown) (unknown) Result panel 80 (unknown) (no date) (unknown) [facility] (no value) (units unknown) (unknown) Result panel 81 (unknown) (no date) (unknown) [facility] (no value) (units unknown) (unknown) Result panel 82 (unknown) (no date) (unknown) [facility] (no value) (units unknown) (unknown) Result panel 83 (unknown) (no date) (unknown) [facility] (no value) (units unknown) (unknown) Result panel 84 (unknown) (no date) (unknown) [facility] (no value) (units unknown) (unknown) Result panel 85 (unknown) (no date) (unknown) [facility] (no value) (units unknown) (unknown) Result panel 86 (unknown) (no date) (unknown) [facility] (no value) (units unknown) (unknown) Result panel 87 (unknown) (no date) (unknown) [facility] (no value) (units unknown) (unknown) Result panel 88 (unknown) (no date) (unknown) [facility] (no value) (units unknown) (unknown) Result panel 89 (unknown) (no date) (unknown) [facility] (no value) (units unknown) (unknown) Result panel 90 (unknown) (no date) (unknown) [facility] (no value) (units unknown) (unknown) Result panel 91 (unknown) (no date) (unknown) [facility] (no value) (units unknown) (unknown) Result panel 92 (unknown) (no date) (unknown) [facility] (no value) (units unknown) (unknown) Result panel 93 (unknown) (no date) (unknown) [facility] (no value) (units unknown) (unknown) Result panel 94 (unknown) (no date) (unknown) [facility] (no value) (units unknown) (unknown) Result panel 95 (unknown) (no date) (unknown) [facility] (no value) (units unknown) (unknown) Result panel 96 (unknown) (no date) (unknown) [facility] (no value) (units unknown) (unknown) Result panel 97 (unknown) (no date) (unknown) [facility] (no value) (units unknown) (unknown) Result panel 98 (unknown) (no date) (unknown) [facility] (no value) (units unknown) (unknown) Result panel 99 (unknown) (no date) (unknown) [facility] (no value) (units unknown) (unknown) Result panel 100 (unknown) (no date) (unknown) [facility] (no value) (units unknown) (unknown) Result panel 101 (unknown) (no date) (unknown) [facility] (no value) (units unknown) (unknown) Result panel 102 (unknown) (no date) (unknown) [facility] (no value) (units unknown) (unknown) Result panel 103 (unknown) (no date) (unknown) [facility] (no value) (units unknown) (unknown) Result panel 104 (unknown) (no date) (unknown) [facility] (no value) (units unknown) (unknown) Result panel 105 (unknown) (no date) (unknown) [facility] (no value) (units unknown) (unknown) Result panel 106 (unknown) (no date) (unknown) [facility] (no value) (units unknown) (unknown) Result panel 107 (unknown) (no date) (unknown) [facility] (no value) (units unknown) (unknown) Result panel 108 (unknown) (no date) (unknown) [facility] (no value) (units unknown) (unknown) Result panel 109 (unknown) (no date) (unknown) [facility] (no value) (units unknown) (unknown) Result panel 110 (unknown) (no date) (unknown) [facility] (no value) (units unknown) (unknown) Result panel 111 (unknown) (no date) (unknown) [facility] (no value) (units unknown) (unknown) Result panel 112 (unknown) (no date) (unknown) [facility] (no value) (units unknown) (unknown) Result panel 113 (unknown) (no date) (unknown) [facility] (no value) (units unknown) (unknown) Result panel 114 (unknown) (no date) (unknown) [facility] (no value) (units unknown) (unknown) Result panel 115 (unknown) (no date) (unknown) [facility] (no value) (units unknown) (unknown) Result panel 116 (unknown) (no date) (unknown) [facility] (no value) (units unknown) (unknown) Result panel 117 (unknown) (no date) (unknown) [facility] (no value) (units unknown) (unknown) Result panel 118 (unknown) (no date) (unknown) (unknown) (no value) (units unknown) (unknown) (unknown) (no date) (unknown) (unknown) [id number] (units unknown) (unknown) (unknown) (no date) (unknown) (unknown) 08/17/22 (units unknown) (unknown) (unknown) (no date) (unknown) (unknown) [address] [place] [address] (units unknown) (unknown) (unknown) (no date) (unknown) (unknown) Accession Number: [id number] (units unknown) (unknown) (unknown) (no date) (unknown) (unknown) Age/Sex: 82 / F Date of Service: (units unknown) (unknown) (unknown) (no date) (unknown) (unknown) [place] [address] (units unknown) (unknown) (unknown) (no date) (unknown) (unknown) Approved by: Adam Ruby M.D. on 08/17/2022 at 13:17 (units unknown) (unknown) (unknown) (no date) (unknown) (unknown) Bones and chest wall: No suspicious bony abnormalities. Soft tissues appear (units unknown) (unknown) (unknown) (no date) (unknown) (unknown) COMPARISON: None. (units unknown) (unknown) (unknown) (no date) (unknown) (unknown) : 1940 Acct:[id number] (units unknown) (unknown) (unknown) (no date) (unknown) (unknown) Dictated by: Adam Ruby M.D. on 08/17/2022 at 13:17 (units unknown) (unknown) (unknown) (no date) (unknown) (unknown) FINDINGS: (units unknown) (unknown) (unknown) (no date) (unknown) (unknown) IMPRESSION: COPD. No acute cardiopulmonary pathology. (units unknown) (unknown) (unknown) (no date) (unknown) (unknown) INDICATIONS: SOB cough (units unknown) (unknown) (unknown) (no date) (unknown) (unknown) [facility] (units unknown) (unknown) (unknown) (no date) (unknown) (unknown) Loc: ED (units unknown) (unknown) (unknown) (no date) (unknown) (unknown) Lungs and pleura: Lungs are clear. Hyperinflation and chronic emphysematous (units unknown) (unknown) (unknown) (no date) (unknown) (unknown) Mediastinum: Mediastinal contours are normal. Heart size is normal. (units unknown) (unknown) (unknown) (no date) (unknown) (unknown) Ordering Provider: Jeri Adam P.A-C (units unknown) (unknown) (unknown) (no date) (unknown) (unknown) PROCEDURE: XR CHEST 2V (units unknown) (unknown) (unknown) (no date) (unknown) (unknown) Patient: Estefanía Mcneil MR#: [id number] (units unknown) (unknown) (unknown) (no date) (unknown) (unknown) Procedure: XR chest 2V (units unknown) (unknown) (unknown) (no date) (unknown) (unknown) Signed (units unknown) (unknown) (unknown) (no date) (unknown) (unknown) Surgical changes and devices: None. (units unknown) (unknown) (unknown) (no date) (unknown) (unknown) TECHNIQUE: 2 views of the chest were acquired. (units unknown) (unknown) (unknown) (no date) (unknown) (unknown) XRay Report (units unknown) (unknown) (unknown) (no date) (unknown) (unknown) changes are (units unknown) (unknown) (unknown) (no date) (unknown) (unknown) seen. No pleural effusions or pneumothorax. (units unknown) (unknown) (unknown) (no date) (unknown) (unknown) unremarkable. (units unknown) (unknown) Result panel 119 (unknown) (no date) (unknown) (unknown) (no value) (units unknown) (unknown) (unknown) (no date) (unknown) (unknown) [id number] (units unknown) (unknown) (unknown) (no date) (unknown) (unknown) 08/17/22 13:06 (units unknown) (unknown) (unknown) (no date) (unknown) (unknown) 08/17/22 13:16 (units unknown) (unknown) (unknown) (no date) (unknown) (unknown) 08/17/22 (units unknown) (unknown) (unknown) (no date) (unknown) (unknown) 13:01 (units unknown) (unknown) (unknown) (no date) (unknown) (unknown) 82-year-old female with a history of small-bowel obstruction with resection (units unknown) (unknown) (unknown) (no date) (unknown) (unknown) ANTIBIOTICS)] (units unknown) (unknown) (unknown) (no date) (unknown) (unknown) Age/Sex: 82 / F (units unknown) (unknown) (unknown) (no date) (unknown) (unknown) Allergies (units unknown) (unknown) (unknown) (no date) (unknown) (unknown) Allergy/AdvReac Type Severity Reaction Status Date / Time (units unknown) (unknown) (unknown) (no date) (unknown) (unknown) Antibiotics) (units unknown) (unknown) (unknown) (no date) (unknown) (unknown) Blood Pressure 163/73 H 08/17/22 13:01 (units unknown) (unknown) (unknown) (no date) (unknown) (unknown) Blood Pressure 163/73 H (units unknown) (unknown) (unknown) (no date) (unknown) (unknown) Chief Complaint: Shortness of Breath/Dyspnea (units unknown) (unknown) (unknown) (no date) (unknown) (unknown) Complete Blood Count AUTO DIFF Stat (units unknown) (unknown) (unknown) (no date) (unknown) (unknown) Comprehensive Metabolic Panel Stat (units unknown) (unknown) (unknown) (no date) (unknown) (unknown) Course (units unknown) (unknown) (unknown) (no date) (unknown) (unknown) : 1940 Acct:[id number] (units unknown) (unknown) (unknown) (no date) (unknown) (unknown) Date of Service: 08/17/22 (units unknown) (unknown) (unknown) (no date) (unknown) (unknown) ED Orders (units unknown) (unknown) (unknown) (no date) (unknown) (unknown) EKG-12 Lead Stat (units unknown) (unknown) (unknown) (no date) (unknown) (unknown) ER Physician: Jeri Adam P.A-C (units unknown) (unknown) (unknown) (no date) (unknown) (unknown) Emergency Report (units unknown) (unknown) (unknown) (no date) (unknown) (unknown) Exam (units unknown) (unknown) (unknown) (no date) (unknown) (unknown) General (units unknown) (unknown) (unknown) (no date) (unknown) (unknown) HPI - SOB/Dyspnea (units unknown) (unknown) (unknown) (no date) (unknown) (unknown) HPI Narrative: (units unknown) (unknown) (unknown) (no date) (unknown) (unknown) History of Present Illness (units unknown) (unknown) (unknown) (no date) (unknown) (unknown) Initial Vital Signs (units unknown) (unknown) (unknown) (no date) (unknown) (unknown) Initial Vital Signs: (units unknown) (unknown) (unknown) (no date) (unknown) (unknown) [address] [address] (units unknown) (unknown) (unknown) (no date) (unknown) (unknown) Lactate (Lactic Acid) Stat (units unknown) (unknown) (unknown) (no date) (unknown) (unknown) Measure peak expiratory flow ONCE (units unknown) (unknown) (unknown) (no date) (unknown) (unknown) Mode of arrival: Ambulatory (units unknown) (unknown) (unknown) (no date) (unknown) (unknown) NT-proBNP (BNP-Adult 18+) Stat (units unknown) (unknown) (unknown) (no date) (unknown) (unknown) Ordered: (units unknown) (unknown) (unknown) (no date) (unknown) (unknown) Orders (units unknown) (unknown) (unknown) (no date) (unknown) (unknown) Oxygen Delivery Method Room Air 08/17/22 13:01 (units unknown) (unknown) (unknown) (no date) (unknown) (unknown) Oxygen Delivery Method Room Air (units unknown) (unknown) (unknown) (no date) (unknown) (unknown) Patient History (units unknown) (unknown) (unknown) (no date) (unknown) (unknown) Patient: Estefanía Mcneil MR#: [id number] (units unknown) (unknown) (unknown) (no date) (unknown) (unknown) Prothrombin Time INR Stat (units unknown) (unknown) (unknown) (no date) (unknown) (unknown) Pulse Oximetry 95 08/17/22 13:01 (units unknown) (unknown) (unknown) (no date) (unknown) (unknown) Pulse Oximetry 95 (units unknown) (unknown) (unknown) (no date) (unknown) (unknown) Pulse Rate 64 08/17/22 13:01 (units unknown) (unknown) (unknown) (no date) (unknown) (unknown) Pulse Rate 64 (units unknown) (unknown) (unknown) (no date) (unknown) (unknown) RT Consult Eval and Treat NOW (units unknown) (unknown) (unknown) (no date) (unknown) (unknown) Related Data (units unknown) (unknown) (unknown) (no date) (unknown) (unknown) Respiratory Rate 18 08/17/22 13:01 (units unknown) (unknown) (unknown) (no date) (unknown) (unknown) Respiratory Rate 18 (units unknown) (unknown) (unknown) (no date) (unknown) (unknown) Signed By: (units unknown) (unknown) (unknown) (no date) (unknown) (unknown) Smoking Status: Never smoker (units unknown) (unknown) (unknown) (no date) (unknown) (unknown) Social History (units unknown) (unknown) (unknown) (no date) (unknown) (unknown) Source: patient (units unknown) (unknown) (unknown) (no date) (unknown) (unknown) Stated Complaint: sent by [employer], SOB (units unknown) (unknown) (unknown) (no date) (unknown) (unknown) Substance Use Type: does not use (units unknown) (unknown) (unknown) (no date) (unknown) (unknown) Sulfa (Sulfonamide Allergy Unknown Verified 08/17/22 13:06 (units unknown) (unknown) (unknown) (no date) (unknown) (unknown) Temperature 97.9 F 08/17/22 13:01 (units unknown) (unknown) (unknown) (no date) (unknown) (unknown) Temperature 97.9 F (units unknown) (unknown) (unknown) (no date) (unknown) (unknown) Tetracyclines [TETRACYCLINES] Allergy Unknown Verified 08/17/22 13:06 (units unknown) (unknown) (unknown) (no date) (unknown) (unknown) Time Seen by Provider: 08/17/22 13:19 (units unknown) (unknown) (unknown) (no date) (unknown) (unknown) Troponin I Stat (units unknown) (unknown) (unknown) (no date) (unknown) (unknown) Vital Signs - 8 hr (units unknown) (unknown) (unknown) (no date) (unknown) (unknown) Vital Signs (units unknown) (unknown) (unknown) (no date) (unknown) (unknown) Vital signs: (units unknown) (unknown) (unknown) (no date) (unknown) (unknown) XR chest 2V Stat (units unknown) (unknown) (unknown) (no date) (unknown) (unknown) [SULFA (SULFONAMIDE (units unknown) (unknown) (unknown) (no date) (unknown) (unknown) abdominal pain, chest pain or any other symptoms. Patient does state that she (units unknown) (unknown) (unknown) (no date) (unknown) (unknown) alcohol intake frequency: 0-2 drinks per day (units unknown) (unknown) (unknown) (no date) (unknown) (unknown) and short of breath with exertion over the past 2 or 3 days. Patient states it (units unknown) (unknown) (unknown) (no date) (unknown) (unknown) bothersome as it is going on 24 hours a day she is been taking Mucinex and (units unknown) (unknown) (unknown) (no date) (unknown) (unknown) concerning due to some depression changes and sent her here for further (units unknown) (unknown) (unknown) (no date) (unknown) (unknown) evaluation. (units unknown) (unknown) (unknown) (no date) (unknown) (unknown) has a friend that recently tested positive for COVID but otherwise has not had (units unknown) (unknown) (unknown) (no date) (unknown) (unknown) has maybe had some mild swelling in her feet but has not noticed any weight gain (units unknown) (unknown) (unknown) (no date) (unknown) (unknown) is unusual for her to feel short of breath with exertion, she does feel that she (units unknown) (unknown) (unknown) (no date) (unknown) (unknown) loose stools which have been unchanged for her. She states it is somewhat (units unknown) (unknown) (unknown) (no date) (unknown) (unknown) negative COVID flu and RSV test but they did a 12 lead that they thought was (units unknown) (unknown) (unknown) (no date) (unknown) (unknown) occasionally [employer]. She endorses chronic intermittent (units unknown) (unknown) (unknown) (no date) (unknown) (unknown) or swelling of her ankles or anywhere else. She states the cough has been (units unknown) (unknown) (unknown) (no date) (unknown) (unknown) penicillin G [PENICILLIN G] Allergy Unknown Verified 08/17/22 13:06 (units unknown) (unknown) (unknown) (no date) (unknown) (unknown) presents with concern for fatigue, a cough and feeling somewhat short of breath (units unknown) (unknown) (unknown) (no date) (unknown) (unknown) productive with mucus coming up. She denies fevers, chills, loss of appetite, (units unknown) (unknown) (unknown) (no date) (unknown) (unknown) sick contacts. Pt states she went to [facility] and was seen there and had a (units unknown) (unknown) Result panel 120 (unknown) (no date) (unknown) (unknown) 0 /ul (unknown) (unknown) (no date) (unknown) (unknown) 0.5 % (unknown) (unknown) (no date) (unknown) (unknown) 1.1 % (unknown) (unknown) (no date) (unknown) (unknown) 100 /ul (unknown) (unknown) (no date) (unknown) (unknown) 12.1 g/dl (unknown) (unknown) (no date) (unknown) (unknown) 15.9 % (unknown) (unknown) (no date) (unknown) (unknown) 179 x10 3/ul (unknown) (unknown) (no date) (unknown) (unknown) 3.89 x10 6/ul (unknown) (unknown) (no date) (unknown) (unknown) 31.1 pg (unknown) (unknown) (no date) (unknown) (unknown) 32.8 % (unknown) (unknown) (no date) (unknown) (unknown) 36.8 % (unknown) (unknown) (no date) (unknown) (unknown) 5.9 % (unknown) (unknown) (no date) (unknown) (unknown) 500 /ul (unknown) (unknown) (no date) (unknown) (unknown) 6900 /ul (unknown) (unknown) (no date) (unknown) (unknown) 700 /ul (unknown) (unknown) (no date) (unknown) (unknown) 8.3 x10 3/ul (unknown) (unknown) (no date) (unknown) (unknown) 8.6 % (unknown) (unknown) (no date) (unknown) (unknown) 83.9 % (unknown) (unknown) (no date) (unknown) (unknown) 94.7 fl (unknown) Result panel 121 (unknown) (no date) (unknown) (unknown) (no value) (units unknown) (unknown) (unknown) (no date) (unknown) (unknown) [id number] (units unknown) (unknown) (unknown) (no date) (unknown) (unknown) 08/17/22 13:06 (units unknown) (unknown) (unknown) (no date) (unknown) (unknown) 08/17/22 13:16 (units unknown) (unknown) (unknown) (no date) (unknown) (unknown) 08/17/22 (units unknown) (unknown) (unknown) (no date) (unknown) (unknown) 13:01 (units unknown) (unknown) (unknown) (no date) (unknown) (unknown) 82-year-old female with a history of small-bowel obstruction with resection (units unknown) (unknown) (unknown) (no date) (unknown) (unknown) ANTIBIOTICS)] (units unknown) (unknown) (unknown) (no date) (unknown) (unknown) Age/Sex: 82 / F (units unknown) (unknown) (unknown) (no date) (unknown) (unknown) Allergies (units unknown) (unknown) (unknown) (no date) (unknown) (unknown) Allergy/AdvReac Type Severity Reaction Status Date / Time (units unknown) (unknown) (unknown) (no date) (unknown) (unknown) Antibiotics) (units unknown) (unknown) (unknown) (no date) (unknown) (unknown) BACK: Nontender without deformity or crepitance. No flank tenderness. (units unknown) (unknown) (unknown) (no date) (unknown) (unknown) Blood Pressure 163/73 H 08/17/22 13:01 (units unknown) (unknown) (unknown) (no date) (unknown) (unknown) Blood Pressure 163/73 H (units unknown) (unknown) (unknown) (no date) (unknown) (unknown) CARDIOVASCULAR: Regular rate and rhythm without murmurs, gallops, or rubs. (units unknown) (unknown) (unknown) (no date) (unknown) (unknown) Chief Complaint: Shortness of Breath/Dyspnea (units unknown) (unknown) (unknown) (no date) (unknown) (unknown) Complete Blood Count AUTO DIFF Stat (units unknown) (unknown) (unknown) (no date) (unknown) (unknown) Comprehensive Metabolic Panel Stat (units unknown) (unknown) (unknown) (no date) (unknown) (unknown) Course (units unknown) (unknown) (unknown) (no date) (unknown) (unknown) : 1940 Acct:[id number] (units unknown) (unknown) (unknown) (no date) (unknown) (unknown) Date of Service: 08/17/22 (units unknown) (unknown) (unknown) (no date) (unknown) (unknown) ED Orders (units unknown) (unknown) (unknown) (no date) (unknown) (unknown) EKG-12 Lead Stat (units unknown) (unknown) (unknown) (no date) (unknown) (unknown) ENT: Nose without bleeding, purulent drainage. Throat without erythema, (units unknown) (unknown) (unknown) (no date) (unknown) (unknown) ER Physician: Jeri Adam P.A-C (units unknown) (unknown) (unknown) (no date) (unknown) (unknown) EXTREMITIES: Arthritic changes to MTP joints/valgus deformity. No edema or (units unknown) (unknown) (unknown) (no date) (unknown) (unknown) EYES: Pupils equal round and reactive. Extraocular motions intact. No scleral (units unknown) (unknown) (unknown) (no date) (unknown) (unknown) Emergency Report (units unknown) (unknown) (unknown) (no date) (unknown) (unknown) Exam Narrative: (units unknown) (unknown) (unknown) (no date) (unknown) (unknown) Exam (units unknown) (unknown) (unknown) (no date) (unknown) (unknown) GASTROINTESTINAL: Abdomen soft, non-tender, nondistended. (units unknown) (unknown) (unknown) (no date) (unknown) (unknown) GENERAL: 82 year old patient appears stated age. Well-developed patient, in mild (units unknown) (unknown) (unknown) (no date) (unknown) (unknown) General (units unknown) (unknown) (unknown) (no date) (unknown) (unknown) HEAD: Atraumatic. Normocephalic. (units unknown) (unknown) (unknown) (no date) (unknown) (unknown) HPI - SOB/Dyspnea (units unknown) (unknown) (unknown) (no date) (unknown) (unknown) HPI Narrative: (units unknown) (unknown) (unknown) (no date) (unknown) (unknown) History of Present Illness (units unknown) (unknown) (unknown) (no date) (unknown) (unknown) Initial Vital Signs (units unknown) (unknown) (unknown) (no date) (unknown) (unknown) Initial Vital Signs: (units unknown) (unknown) (unknown) (no date) (unknown) (unknown) [address] [address] (units unknown) (unknown) (unknown) (no date) (unknown) (unknown) Lactate (Lactic Acid) Stat (units unknown) (unknown) (unknown) (no date) (unknown) (unknown) Measure peak expiratory flow ONCE (units unknown) (unknown) (unknown) (no date) (unknown) (unknown) Mode of arrival: Ambulatory (units unknown) (unknown) (unknown) (no date) (unknown) (unknown) NECK: Trachea midline. Non tender (units unknown) (unknown) (unknown) (no date) (unknown) (unknown) NEURO: AOx3. (units unknown) (unknown) (unknown) (no date) (unknown) (unknown) NT-proBNP (BNP-Adult 18+) Stat (units unknown) (unknown) (unknown) (no date) (unknown) (unknown) Narrative (units unknown) (unknown) (unknown) (no date) (unknown) (unknown) Narrative: (units unknown) (unknown) (unknown) (no date) (unknown) (unknown) Ordered: (units unknown) (unknown) (unknown) (no date) (unknown) (unknown) Orders (units unknown) (unknown) (unknown) (no date) (unknown) (unknown) Oxygen Delivery Method Room Air 08/17/22 13:01 (units unknown) (unknown) (unknown) (no date) (unknown) (unknown) Oxygen Delivery Method Room Air (units unknown) (unknown) (unknown) (no date) (unknown) (unknown) Patient History (units unknown) (unknown) (unknown) (no date) (unknown) (unknown) Patient: Estefanía Mcneil MR#: [id number] (units unknown) (unknown) (unknown) (no date) (unknown) (unknown) Prothrombin Time INR Stat (units unknown) (unknown) (unknown) (no date) (unknown) (unknown) Pulse Oximetry 95 08/17/22 13:01 (units unknown) (unknown) (unknown) (no date) (unknown) (unknown) Pulse Oximetry 95 (units unknown) (unknown) (unknown) (no date) (unknown) (unknown) Pulse Rate 64 08/17/22 13:01 (units unknown) (unknown) (unknown) (no date) (unknown) (unknown) Pulse Rate 64 (units unknown) (unknown) (unknown) (no date) (unknown) (unknown) RESPIRATORY: Clear to auscultation. Breath sounds equal bilaterally. No wheezes, (units unknown) (unknown) (unknown) (no date) (unknown) (unknown) RT Consult Eval and Treat NOW (units unknown) (unknown) (unknown) (no date) (unknown) (unknown) Related Data (units unknown) (unknown) (unknown) (no date) (unknown) (unknown) Respiratory Rate 18 08/17/22 13:01 (units unknown) (unknown) (unknown) (no date) (unknown) (unknown) Respiratory Rate 18 (units unknown) (unknown) (unknown) (no date) (unknown) (unknown) Review of Systems (units unknown) (unknown) (unknown) (no date) (unknown) (unknown) SKIN: No rash or erythema of visible areas (units unknown) (unknown) (unknown) (no date) (unknown) (unknown) Signed By: (units unknown) (unknown) (unknown) (no date) (unknown) (unknown) Smoking Status: Never smoker (units unknown) (unknown) (unknown) (no date) (unknown) (unknown) Social History (units unknown) (unknown) (unknown) (no date) (unknown) (unknown) Source: patient (units unknown) (unknown) (unknown) (no date) (unknown) (unknown) Stated Complaint: sent by jacky berg, SOB (units unknown) (unknown) (unknown) (no date) (unknown) (unknown) Substance Use Type: does not use (units unknown) (unknown) (unknown) (no date) (unknown) (unknown) Sulfa (Sulfonamide Allergy Unknown Verified 08/17/22 13:06 (units unknown) (unknown) (unknown) (no date) (unknown) (unknown) Temperature 97.9 F 08/17/22 13:01 (units unknown) (unknown) (unknown) (no date) (unknown) (unknown) Temperature 97.9 F (units unknown) (unknown) (unknown) (no date) (unknown) (unknown) Tetracyclines [TETRACYCLINES] Allergy Unknown Verified 08/17/22 13:06 (units unknown) (unknown) (unknown) (no date) (unknown) (unknown) Time Seen by Provider: 08/17/22 13:19 (units unknown) (unknown) (unknown) (no date) (unknown) (unknown) Troponin I Stat (units unknown) (unknown) (unknown) (no date) (unknown) (unknown) Unremarkable except as noted in the HPI (units unknown) (unknown) (unknown) (no date) (unknown) (unknown) Vital Signs - 8 hr (units unknown) (unknown) (unknown) (no date) (unknown) (unknown) Vital Signs (units unknown) (unknown) (unknown) (no date) (unknown) (unknown) Vital signs: (units unknown) (unknown) (unknown) (no date) (unknown) (unknown) XR chest 2V Stat (units unknown) (unknown) (unknown) (no date) (unknown) (unknown) [SULFA (SULFONAMIDE (units unknown) (unknown) (unknown) (no date) (unknown) (unknown) abdominal pain, chest pain or any other symptoms. Patient does state that she (units unknown) (unknown) (unknown) (no date) (unknown) (unknown) alcohol intake frequency: 0-2 drinks per day (units unknown) (unknown) (unknown) (no date) (unknown) (unknown) and short of breath with exertion over the past 2 or 3 days. Patient states it (units unknown) (unknown) (unknown) (no date) (unknown) (unknown) bothersome as it is going on 24 hours a day she is been taking Mucinex and (units unknown) (unknown) (unknown) (no date) (unknown) (unknown) distress, well-appearing. (units unknown) (unknown) (unknown) (no date) (unknown) (unknown) due to some depression changes and sent her here for further evaluation. (units unknown) (unknown) (unknown) (no date) (unknown) (unknown) has a friend that recently tested positive for COVID but otherwise has not had (units unknown) (unknown) (unknown) (no date) (unknown) (unknown) has maybe had some mild swelling in her feet but has not noticed any weight gain (units unknown) (unknown) (unknown) (no date) (unknown) (unknown) icterus. No injection or drainage. (units unknown) (unknown) (unknown) (no date) (unknown) (unknown) is unusual for her to feel short of breath with exertion, she does feel that she (units unknown) (unknown) (unknown) (no date) (unknown) (unknown) joint tenderness. (units unknown) (unknown) (unknown) (no date) (unknown) (unknown) loose stools which have been unchanged for her. She states it is somewhat (units unknown) (unknown) (unknown) (no date) (unknown) (unknown) negative COVID flu test but they did a 12 lead that they thought was concerning (units unknown) (unknown) (unknown) (no date) (unknown) (unknown) occasionally [employer]. She endorses chronic intermittent (units unknown) (unknown) (unknown) (no date) (unknown) (unknown) or swelling of her ankles or anywhere else. She states the cough has been (units unknown) (unknown) (unknown) (no date) (unknown) (unknown) penicillin G [PENICILLIN G] Allergy Unknown Verified 08/17/22 13:06 (units unknown) (unknown) (unknown) (no date) (unknown) (unknown) presents with concern for fatigue, a cough and feeling somewhat short of breath (units unknown) (unknown) (unknown) (no date) (unknown) (unknown) productive with mucus coming up. She denies fevers, chills, loss of appetite, (units unknown) (unknown) (unknown) (no date) (unknown) (unknown) rales, or rhonchi. (units unknown) (unknown) (unknown) (no date) (unknown) (unknown) sick contacts. Pt states she went to [facility] and was seen there and had a (units unknown) (unknown) (unknown) (no date) (unknown) (unknown) tonsillar hypertrophy or exudate. Airway patent. (units unknown) (unknown) Result panel 122 (unknown) (no date) (unknown) (unknown) 1.1 (units unknown) (unknown) (unknown) (no date) (unknown) (unknown) 13.1 seconds (unknown) (unknown) (no date) (unknown) (unknown) 13.1 seconds (unknown) Result panel 123 (unknown) (no date) (unknown) (unknown) > 60 ml/min (unknown) (unknown) (no date) (unknown) (unknown) > 60 ml/min (unknown) (unknown) (no date) (unknown) (unknown) 0.37 mg/dl (unknown) (unknown) (no date) (unknown) (unknown) 0.5 mg/dl (unknown) (unknown) (no date) (unknown) (unknown) 1.3 (units unknown) (unknown) (unknown) (no date) (unknown) (unknown) 101 mmol/l (unknown) (unknown) (no date) (unknown) (unknown) 115 mg/dl (unknown) (unknown) (no date) (unknown) (unknown) 115 mg/dl (unknown) (unknown) (no date) (unknown) (unknown) 133 mmol/l (unknown) (unknown) (no date) (unknown) (unknown) 133 mmol/l (unknown) (unknown) (no date) (unknown) (unknown) 16 mg/dl (unknown) (unknown) (no date) (unknown) (unknown) 2.9 g/dl (unknown) (unknown) (no date) (unknown) (unknown) 26 mmol/l (unknown) (unknown) (no date) (unknown) (unknown) 3.8 g/dl (unknown) (unknown) (no date) (unknown) (unknown) 3.9 mmol/l (unknown) (unknown) (no date) (unknown) (unknown) 40 iu/l (unknown) (unknown) (no date) (unknown) (unknown) 43.2 (units unknown) (unknown) (unknown) (no date) (unknown) (unknown) 52 iu/l (unknown) (unknown) (no date) (unknown) (unknown) 58 u/l (unknown) (unknown) (no date) (unknown) (unknown) 6.7 g/dl (unknown) (unknown) (no date) (unknown) (unknown) 9.0 mg/dl (unknown) Result panel 124 (unknown) (no date) (unknown) (unknown) 1.1 mmol/l (unknown) Result panel 125 (unknown) (no date) (unknown) (unknown) > 60 ml/min (unknown) (unknown) (no date) (unknown) (unknown) > 60 ml/min (unknown) (unknown) (no date) (unknown) (unknown) < 0.012 ng/ml (unknown) (unknown) (no date) (unknown) (unknown) < 0.012 ng/ml (unknown) (unknown) (no date) (unknown) (unknown) 0.37 mg/dl (unknown) (unknown) (no date) (unknown) (unknown) 0.5 mg/dl (unknown) (unknown) (no date) (unknown) (unknown) 1.3 (units unknown) (unknown) (unknown) (no date) (unknown) (unknown) 101 mmol/l (unknown) (unknown) (no date) (unknown) (unknown) 115 mg/dl (unknown) (unknown) (no date) (unknown) (unknown) 115 mg/dl (unknown) (unknown) (no date) (unknown) (unknown) 133 mmol/l (unknown) (unknown) (no date) (unknown) (unknown) 133 mmol/l (unknown) (unknown) (no date) (unknown) (unknown) 16 mg/dl (unknown) (unknown) (no date) (unknown) (unknown) 2.9 g/dl (unknown) (unknown) (no date) (unknown) (unknown) 26 mmol/l (unknown) (unknown) (no date) (unknown) (unknown) 3.8 g/dl (unknown) (unknown) (no date) (unknown) (unknown) 3.9 mmol/l (unknown) (unknown) (no date) (unknown) (unknown) 359 pg/ml (unknown) (unknown) (no date) (unknown) (unknown) 359 pg/ml (unknown) (unknown) (no date) (unknown) (unknown) 40 iu/l (unknown) (unknown) (no date) (unknown) (unknown) 43.2 (units unknown) (unknown) (unknown) (no date) (unknown) (unknown) 52 iu/l (unknown) (unknown) (no date) (unknown) (unknown) 58 u/l (unknown) (unknown) (no date) (unknown) (unknown) 6.7 g/dl (unknown) (unknown) (no date) (unknown) (unknown) 9.0 mg/dl (unknown) Result panel 126 (unknown) (no date) (unknown) (unknown) (no value) (units unknown) (unknown) (unknown) (no date) (unknown) (unknown) [id number] (units unknown) (unknown) (unknown) (no date) (unknown) (unknown) 08/17/22 08/17/22 08/17/22 Range/Units (units unknown) (unknown) (unknown) (no date) (unknown) (unknown) 08/17/22 13:06 (units unknown) (unknown) (unknown) (no date) (unknown) (unknown) 08/17/22 13:16 (units unknown) (unknown) (unknown) (no date) (unknown) (unknown) 08/17/22 13:20 (units unknown) (unknown) (unknown) (no date) (unknown) (unknown) 08/17/22 Range/Units (units unknown) (unknown) (unknown) (no date) (unknown) (unknown) 08/17/22 (units unknown) (unknown) (unknown) (no date) (unknown) (unknown) [address] [place] [address] (units unknown) (unknown) (unknown) (no date) (unknown) (unknown) 13:01 (units unknown) (unknown) (unknown) (no date) (unknown) (unknown) 13:20 13:20 13:20 (units unknown) (unknown) (unknown) (no date) (unknown) (unknown) 13:20 (units unknown) (unknown) (unknown) (no date) (unknown) (unknown) 82-year-old female with a history of small-bowel obstruction with resection (units unknown) (unknown) (unknown) (no date) (unknown) (unknown) ? (units unknown) (unknown) (unknown) (no date) (unknown) (unknown) ALT (<35) IU/L (units unknown) (unknown) (unknown) (no date) (unknown) (unknown) ALT 40 H (<35) IU/L (units unknown) (unknown) (unknown) (no date) (unknown) (unknown) ANTIBIOTICS)] (units unknown) (unknown) (unknown) (no date) (unknown) (unknown) AST (14-36) IU/L (units unknown) (unknown) (unknown) (no date) (unknown) (unknown) AST 52 H (14-36) IU/L (units unknown) (unknown) (unknown) (no date) (unknown) (unknown) Accession Number: [id number] ?? (units unknown) (unknown) (unknown) (no date) (unknown) (unknown) Acct:[id number] (units unknown) (unknown) (unknown) (no date) (unknown) (unknown) Age/Sex: 82 / F (units unknown) (unknown) (unknown) (no date) (unknown) (unknown) Albumin (3.5-5.0) g/dL (units unknown) (unknown) (unknown) (no date) (unknown) (unknown) Albumin 3.8 (3.5-5.0) g/dL (units unknown) (unknown) (unknown) (no date) (unknown) (unknown) Albumin/Globulin Ratio (1.0-2.8) (units unknown) (unknown) (unknown) (no date) (unknown) (unknown) Albumin/Globulin Ratio 1.3 (1.0-2.8) (units unknown) (unknown) (unknown) (no date) (unknown) (unknown) Alkaline Phosphatase (38-126) U/L (units unknown) (unknown) (unknown) (no date) (unknown) (unknown) Alkaline Phosphatase 58 (38-126) U/L (units unknown) (unknown) (unknown) (no date) (unknown) (unknown) Allergies (units unknown) (unknown) (unknown) (no date) (unknown) (unknown) Allergy/AdvReac Type Severity Reaction Status Date / Time (units unknown) (unknown) (unknown) (no date) (unknown) (unknown) [place] [address] (units unknown) (unknown) (unknown) (no date) (unknown) (unknown) Antibiotics) (units unknown) (unknown) (unknown) (no date) (unknown) (unknown) Approved by: Adam Ruby M.D. on 08/17/2022 at 13:17?? (units unknown) (unknown) (unknown) (no date) (unknown) (unknown) Attestation: I reviewed the patient's lab results. (units unknown) (unknown) (unknown) (no date) (unknown) (unknown) BACK: Nontender without deformity or crepitance. No flank tenderness. (units unknown) (unknown) (unknown) (no date) (unknown) (unknown) BUN (7-17) mg/dL (units unknown) (unknown) (unknown) (no date) (unknown) (unknown) BUN 16 (7-17) mg/dL (units unknown) (unknown) (unknown) (no date) (unknown) (unknown) BUN/Creatinine Ratio (6-22) (units unknown) (unknown) (unknown) (no date) (unknown) (unknown) BUN/Creatinine Ratio 43.2 H (6-22) (units unknown) (unknown) (unknown) (no date) (unknown) (unknown) Baso # (Auto) (0-100) /uL (units unknown) (unknown) (unknown) (no date) (unknown) (unknown) Baso # (Auto) 0 (0-100) /uL (units unknown) (unknown) (unknown) (no date) (unknown) (unknown) Baso % (Auto) (0-2) % (units unknown) (unknown) (unknown) (no date) (unknown) (unknown) Baso % (Auto) 0.5 (0-2) % (units unknown) (unknown) (unknown) (no date) (unknown) (unknown) Blood Pressure 163/73 H 08/17/22 13:01 (units unknown) (unknown) (unknown) (no date) (unknown) (unknown) Blood Pressure 163/73 H (units unknown) (unknown) (unknown) (no date) (unknown) (unknown) Bones and chest wall:? No suspicious bony abnormalities.? Soft tissues appear (units unknown) (unknown) (unknown) (no date) (unknown) (unknown) CARDIOVASCULAR: Regular rate and rhythm without murmurs, gallops, or rubs. (units unknown) (unknown) (unknown) (no date) (unknown) (unknown) COMPARISON:? None. (units unknown) (unknown) (unknown) (no date) (unknown) (unknown) Calcium (8.4-10.2) mg/dL (units unknown) (unknown) (unknown) (no date) (unknown) (unknown) Calcium 9.0 (8.4-10.2) mg/dL (units unknown) (unknown) (unknown) (no date) (unknown) (unknown) Carbon Dioxide (22-32) mmol/L (units unknown) (unknown) (unknown) (no date) (unknown) (unknown) Carbon Dioxide 26 (22-32) mmol/L (units unknown) (unknown) (unknown) (no date) (unknown) (unknown) Chest x-ray: (units unknown) (unknown) (unknown) (no date) (unknown) (unknown) Chief Complaint: Shortness of Breath/Dyspnea (units unknown) (unknown) (unknown) (no date) (unknown) (unknown) Chloride (98-107) mmol/L (units unknown) (unknown) (unknown) (no date) (unknown) (unknown) Chloride 101 (98-107) mmol/L (units unknown) (unknown) (unknown) (no date) (unknown) (unknown) Complete Blood Count AUTO DIFF Stat (units unknown) (unknown) (unknown) (no date) (unknown) (unknown) Comprehensive Metabolic Panel Stat (units unknown) (unknown) (unknown) (no date) (unknown) (unknown) Course (units unknown) (unknown) (unknown) (no date) (unknown) (unknown) Creatinine (0.52-1.04) mg/dL (units unknown) (unknown) (unknown) (no date) (unknown) (unknown) Creatinine 0.37 L (0.52-1.04) mg/dL (units unknown) (unknown) (unknown) (no date) (unknown) (unknown) : 1940 Acct:[id number] (units unknown) (unknown) (unknown) (no date) (unknown) (unknown) : 1940 (units unknown) (unknown) (unknown) (no date) (unknown) (unknown) Date of Service: 08/17/22 (units unknown) (unknown) (unknown) (no date) (unknown) (unknown) Dictated by: Adam Ruby M.D. on 08/17/2022 at 13:17 ? ? (units unknown) (unknown) (unknown) (no date) (unknown) (unknown) Differential Diagnosis (units unknown) (unknown) (unknown) (no date) (unknown) (unknown) Differential diagnosis: Likely acute exacerbation of chronic obstructive airways (units unknown) (unknown) (unknown) (no date) (unknown) (unknown) ED Orders (units unknown) (unknown) (unknown) (no date) (unknown) (unknown) EKG-12 Lead Stat (units unknown) (unknown) (unknown) (no date) (unknown) (unknown) ENT: Nose without bleeding, purulent drainage. Throat without erythema, (units unknown) (unknown) (unknown) (no date) (unknown) (unknown) ER Physician: Jeri Adam P.A-C (units unknown) (unknown) (unknown) (no date) (unknown) (unknown) EXTREMITIES: Arthritic changes to MTP joints/valgus deformity. No edema or (units unknown) (unknown) (unknown) (no date) (unknown) (unknown) EYES: Pupils equal round and reactive. Extraocular motions intact. No scleral (units unknown) (unknown) (unknown) (no date) (unknown) (unknown) Emergency Report (units unknown) (unknown) (unknown) (no date) (unknown) (unknown) Eos # (Auto) (0-450) /uL (units unknown) (unknown) (unknown) (no date) (unknown) (unknown) Eos # (Auto) 100 (0-450) /uL (units unknown) (unknown) (unknown) (no date) (unknown) (unknown) Eos % (Auto) (2-4) % (units unknown) (unknown) (unknown) (no date) (unknown) (unknown) Eos % (Auto) 1.1 L (2-4) % (units unknown) (unknown) (unknown) (no date) (unknown) (unknown) Estimated GFR > 60 (>60) mL/min (units unknown) (unknown) (unknown) (no date) (unknown) (unknown) Estimated GFR (>60) mL/min (units unknown) (unknown) (unknown) (no date) (unknown) (unknown) Exam Narrative: (units unknown) (unknown) (unknown) (no date) (unknown) (unknown) Exam (units unknown) (unknown) (unknown) (no date) (unknown) (unknown) FINDINGS:? (units unknown) (unknown) (unknown) (no date) (unknown) (unknown) GASTROINTESTINAL: Abdomen soft, non-tender, nondistended. (units unknown) (unknown) (unknown) (no date) (unknown) (unknown) GENERAL: 82 year old patient appears stated age. Well-developed patient, in mild (units unknown) (unknown) (unknown) (no date) (unknown) (unknown) General (units unknown) (unknown) (unknown) (no date) (unknown) (unknown) Globulin (1.7-4.1) g/dL (units unknown) (unknown) (unknown) (no date) (unknown) (unknown) Globulin 2.9 (1.7-4.1) g/dL (units unknown) (unknown) (unknown) (no date) (unknown) (unknown) Glucose (80-110) mg/dL (units unknown) (unknown) (unknown) (no date) (unknown) (unknown) Glucose 115 H (80-110) mg/dL (units unknown) (unknown) (unknown) (no date) (unknown) (unknown) HEAD: Atraumatic. Normocephalic. (units unknown) (unknown) (unknown) (no date) (unknown) (unknown) HPI - SOB/Dyspnea (units unknown) (unknown) (unknown) (no date) (unknown) (unknown) HPI Narrative: (units unknown) (unknown) (unknown) (no date) (unknown) (unknown) Hct (36-46) % (units unknown) (unknown) (unknown) (no date) (unknown) (unknown) Hct 36.8 (36-46) % (units unknown) (unknown) (unknown) (no date) (unknown) (unknown) Hgb (12.0-16.0) g/dL (units unknown) (unknown) (unknown) (no date) (unknown) (unknown) Hgb 12.1 (12.0-16.0) g/dL (units unknown) (unknown) (unknown) (no date) (unknown) (unknown) History of Present Illness (units unknown) (unknown) (unknown) (no date) (unknown) (unknown) IMPRESSION:? COPD.? No acute cardiopulmonary pathology. (units unknown) (unknown) (unknown) (no date) (unknown) (unknown) INDICATIONS:? SOB cough (units unknown) (unknown) (unknown) (no date) (unknown) (unknown) INR (0.9-1.3) (units unknown) (unknown) (unknown) (no date) (unknown) (unknown) INR 1.1 (0.9-1.3) (units unknown) (unknown) (unknown) (no date) (unknown) (unknown) Imaging Data (units unknown) (unknown) (unknown) (no date) (unknown) (unknown) Initial Vital Signs (units unknown) (unknown) (unknown) (no date) (unknown) (unknown) Initial Vital Signs: (units unknown) (unknown) (unknown) (no date) (unknown) (unknown) [address] [address] (units unknown) (unknown) (unknown) (no date) (unknown) (unknown) [facility] (units unknown) (unknown) (unknown) (no date) (unknown) (unknown) Lab Data (units unknown) (unknown) (unknown) (no date) (unknown) (unknown) Lab Results (units unknown) (unknown) (unknown) (no date) (unknown) (unknown) Labs: (units unknown) (unknown) (unknown) (no date) (unknown) (unknown) Lactate (0.7-2.1) mmol/L (units unknown) (unknown) (unknown) (no date) (unknown) (unknown) Lactate (Lactic Acid) Stat (units unknown) (unknown) (unknown) (no date) (unknown) (unknown) Lactate 1.1 (0.7-2.1) mmol/L (units unknown) (unknown) (unknown) (no date) (unknown) (unknown) Loc: ED (units unknown) (unknown) (unknown) (no date) (unknown) (unknown) Lungs and pleura:? Lungs are clear.? Hyperinflation and chronic emphysematous (units unknown) (unknown) (unknown) (no date) (unknown) (unknown) Lymph # (Auto) (3152-0377) /uL (units unknown) (unknown) (unknown) (no date) (unknown) (unknown) Lymph # (Auto) 700 L (8439-9761) /uL (units unknown) (unknown) (unknown) (no date) (unknown) (unknown) Lymph % (Auto) (25-40) % (units unknown) (unknown) (unknown) (no date) (unknown) (unknown) Lymph % (Auto) 8.6 L (25-40) % (units unknown) (unknown) (unknown) (no date) (unknown) (unknown) MCH (26-34) PG (units unknown) (unknown) (unknown) (no date) (unknown) (unknown) MCH 31.1 (26-34) PG (units unknown) (unknown) (unknown) (no date) (unknown) (unknown) MCHC (30-36) % (units unknown) (unknown) (unknown) (no date) (unknown) (unknown) MCHC 32.8 (30-36) % (units unknown) (unknown) (unknown) (no date) (unknown) (unknown) MCV (80-100) fL (units unknown) (unknown) (unknown) (no date) (unknown) (unknown) MCV 94.7 (80-100) fL (units unknown) (unknown) (unknown) (no date) (unknown) (unknown) MDM - SOB/Dyspnea (units unknown) (unknown) (unknown) (no date) (unknown) (unknown) MR#: [id number] (units unknown) (unknown) (unknown) (no date) (unknown) (unknown) Measure peak expiratory flow ONCE (units unknown) (unknown) (unknown) (no date) (unknown) (unknown) Mediastinum:? Mediastinal contours are normal.? Heart size is normal.? (units unknown) (unknown) (unknown) (no date) (unknown) (unknown) Mode of arrival: Ambulatory (units unknown) (unknown) (unknown) (no date) (unknown) (unknown) [place] # (Auto) (0-900) /uL (units unknown) (unknown) (unknown) (no date) (unknown) (unknown) [place] # (Auto) 500 (0-900) /uL (units unknown) (unknown) (unknown) (no date) (unknown) (unknown) [place] % (Auto) (3-14) % (units unknown) (unknown) (unknown) (no date) (unknown) (unknown) [place] % (Auto) 5.9 (3-14) % (units unknown) (unknown) (unknown) (no date) (unknown) (unknown) NECK: Trachea midline. Non tender (units unknown) (unknown) (unknown) (no date) (unknown) (unknown) NEURO: AOx3. (units unknown) (unknown) (unknown) (no date) (unknown) (unknown) NT-Pro-B Natriuret Pep (<450) pg/mL (units unknown) (unknown) (unknown) (no date) (unknown) (unknown) NT-Pro-B Natriuret Pep 359 (<450) pg/mL (units unknown) (unknown) (unknown) (no date) (unknown) (unknown) NT-proBNP (BNP-Adult 18+) Stat (units unknown) (unknown) (unknown) (no date) (unknown) (unknown) Narrative (units unknown) (unknown) (unknown) (no date) (unknown) (unknown) Narrative: (units unknown) (unknown) (unknown) (no date) (unknown) (unknown) Neut # (Auto) (8704-6997) /uL (units unknown) (unknown) (unknown) (no date) (unknown) (unknown) Neut # (Auto) 6900 (5123-1829) /uL (units unknown) (unknown) (unknown) (no date) (unknown) (unknown) Neut % (Auto) (50-75) % (units unknown) (unknown) (unknown) (no date) (unknown) (unknown) Neut % (Auto) 83.9 H (50-75) % (units unknown) (unknown) (unknown) (no date) (unknown) (unknown) Ordered: (units unknown) (unknown) (unknown) (no date) (unknown) (unknown) Ordering Provider: Jeri Adam P.A-C (units unknown) (unknown) (unknown) (no date) (unknown) (unknown) Orders (units unknown) (unknown) (unknown) (no date) (unknown) (unknown) Oxygen Delivery Method Room Air 08/17/22 13:01 (units unknown) (unknown) (unknown) (no date) (unknown) (unknown) Oxygen Delivery Method Room Air (units unknown) (unknown) (unknown) (no date) (unknown) (unknown) PROCEDURE:? XR CHEST 2V (units unknown) (unknown) (unknown) (no date) (unknown) (unknown) PT (10.1-12.7) SECONDS (units unknown) (unknown) (unknown) (no date) (unknown) (unknown) PT 13.1 H (10.1-12.7) SECONDS (units unknown) (unknown) (unknown) (no date) (unknown) (unknown) Patient History (units unknown) (unknown) (unknown) (no date) (unknown) (unknown) Patient: Estefanía Mcneil MR#: [id number] (units unknown) (unknown) (unknown) (no date) (unknown) (unknown) Patient: Estefanía Mcneil (units unknown) (unknown) (unknown) (no date) (unknown) (unknown) Plt Count (150-400) X103/uL (units unknown) (unknown) (unknown) (no date) (unknown) (unknown) Plt Count 179 (150-400) X103/uL (units unknown) (unknown) (unknown) (no date) (unknown) (unknown) Potassium (3.4-5.1) mmol/L (units unknown) (unknown) (unknown) (no date) (unknown) (unknown) Potassium 3.9 (3.4-5.1) mmol/L (units unknown) (unknown) (unknown) (no date) (unknown) (unknown) Procedure: XR chest 2V (units unknown) (unknown) (unknown) (no date) (unknown) (unknown) Prothrombin Time INR Stat (units unknown) (unknown) (unknown) (no date) (unknown) (unknown) Pulse Oximetry 95 08/17/22 13:01 (units unknown) (unknown) (unknown) (no date) (unknown) (unknown) Pulse Oximetry 95 (units unknown) (unknown) (unknown) (no date) (unknown) (unknown) Pulse Rate 64 08/17/22 13:01 (units unknown) (unknown) (unknown) (no date) (unknown) (unknown) Pulse Rate 64 (units unknown) (unknown) (unknown) (no date) (unknown) (unknown) RBC (4.0-5.2) X106/uL (units unknown) (unknown) (unknown) (no date) (unknown) (unknown) RBC 3.89 L (4.0-5.2) X106/uL (units unknown) (unknown) (unknown) (no date) (unknown) (unknown) RDW (11.6-14.8) % (units unknown) (unknown) (unknown) (no date) (unknown) (unknown) RDW 15.9 H (11.6-14.8) % (units unknown) (unknown) (unknown) (no date) (unknown) (unknown) RESPIRATORY: Clear to auscultation. Breath sounds equal bilaterally. No wheezes, (units unknown) (unknown) (unknown) (no date) (unknown) (unknown) RT Consult Eval and Treat NOW (units unknown) (unknown) (unknown) (no date) (unknown) (unknown) Radiologist's Impression: (units unknown) (unknown) (unknown) (no date) (unknown) (unknown) Related Data (units unknown) (unknown) (unknown) (no date) (unknown) (unknown) Respiratory Rate 18 08/17/22 13:01 (units unknown) (unknown) (unknown) (no date) (unknown) (unknown) Respiratory Rate 18 (units unknown) (unknown) (unknown) (no date) (unknown) (unknown) Review of Systems (units unknown) (unknown) (unknown) (no date) (unknown) (unknown) SKIN: No rash or erythema of visible areas (units unknown) (unknown) (unknown) (no date) (unknown) (unknown) Signed By: (units unknown) (unknown) (unknown) (no date) (unknown) (unknown) Signed (units unknown) (unknown) (unknown) (no date) (unknown) (unknown) Smoking Status: Never smoker (units unknown) (unknown) (unknown) (no date) (unknown) (unknown) Social History (units unknown) (unknown) (unknown) (no date) (unknown) (unknown) Sodium (137-145) mmol/L (units unknown) (unknown) (unknown) (no date) (unknown) (unknown) Sodium 133 L (137-145) mmol/L (units unknown) (unknown) (unknown) (no date) (unknown) (unknown) Source: patient (units unknown) (unknown) (unknown) (no date) (unknown) (unknown) Stated Complaint: sent by [facility] SOB (units unknown) (unknown) (unknown) (no date) (unknown) (unknown) Substance Use Type: does not use (units unknown) (unknown) (unknown) (no date) (unknown) (unknown) Sulfa (Sulfonamide Allergy Unknown Verified 08/17/22 13:06 (units unknown) (unknown) (unknown) (no date) (unknown) (unknown) Surgical changes and devices:? None.? (units unknown) (unknown) (unknown) (no date) (unknown) (unknown) TECHNIQUE:? 2 views of the chest were acquired.? (units unknown) (unknown) (unknown) (no date) (unknown) (unknown) Temperature 97.9 F 08/17/22 13:01 (units unknown) (unknown) (unknown) (no date) (unknown) (unknown) Temperature 97.9 F (units unknown) (unknown) (unknown) (no date) (unknown) (unknown) Tetracyclines [TETRACYCLINES] Allergy Unknown Verified 08/17/22 13:06 (units unknown) (unknown) (unknown) (no date) (unknown) (unknown) Time Seen by Provider: 08/17/22 13:19 (units unknown) (unknown) (unknown) (no date) (unknown) (unknown) Total Bilirubin (0.2-1.3) mg/dL (units unknown) (unknown) (unknown) (no date) (unknown) (unknown) Total Bilirubin 0.5 (0.2-1.3) mg/dL (units unknown) (unknown) (unknown) (no date) (unknown) (unknown) Total Protein (6.3-8.2) g/dL (units unknown) (unknown) (unknown) (no date) (unknown) (unknown) Total Protein 6.7 (6.3-8.2) g/dL (units unknown) (unknown) (unknown) (no date) (unknown) (unknown) Troponin I < 0.012 (0.01-0.034) ng/mL (units unknown) (unknown) (unknown) (no date) (unknown) (unknown) Troponin I (0.01-0.034) ng/mL (units unknown) (unknown) (unknown) (no date) (unknown) (unknown) Troponin I Stat (units unknown) (unknown) (unknown) (no date) (unknown) (unknown) Unremarkable except as noted in the HPI (units unknown) (unknown) (unknown) (no date) (unknown) (unknown) Vital Signs - 8 hr (units unknown) (unknown) (unknown) (no date) (unknown) (unknown) Vital Signs (units unknown) (unknown) (unknown) (no date) (unknown) (unknown) Vital signs: (units unknown) (unknown) (unknown) (no date) (unknown) (unknown) WBC (4.5-11.0) X103/uL (units unknown) (unknown) (unknown) (no date) (unknown) (unknown) WBC 8.3 (4.5-11.0) X103/uL (units unknown) (unknown) (unknown) (no date) (unknown) (unknown) XR chest 2V Stat (units unknown) (unknown) (unknown) (no date) (unknown) (unknown) XRay Report (units unknown) (unknown) (unknown) (no date) (unknown) (unknown) [Embedded Image Not Available] (units unknown) (unknown) (unknown) (no date) (unknown) (unknown) [SULFA (SULFONAMIDE (units unknown) (unknown) (unknown) (no date) (unknown) (unknown) abdominal pain, chest pain or any other symptoms. Patient does state that she (units unknown) (unknown) (unknown) (no date) (unknown) (unknown) alcohol intake frequency: 0-2 drinks per day (units unknown) (unknown) (unknown) (no date) (unknown) (unknown) and short of breath with exertion over the past 2 or 3 days. Patient states it (units unknown) (unknown) (unknown) (no date) (unknown) (unknown) bothersome as it is going on 24 hours a day she is been taking Mucinex and (units unknown) (unknown) (unknown) (no date) (unknown) (unknown) changes are (units unknown) (unknown) (unknown) (no date) (unknown) (unknown) disease, community acquired pneumonia and other (Viral URI, CHF, [place]) (units unknown) (unknown) (unknown) (no date) (unknown) (unknown) distress, well-appearing. (units unknown) (unknown) (unknown) (no date) (unknown) (unknown) due to some depression changes and sent her here for further evaluation. (units unknown) (unknown) (unknown) (no date) (unknown) (unknown) has a friend that recently tested positive for COVID but otherwise has not had (units unknown) (unknown) (unknown) (no date) (unknown) (unknown) has maybe had some mild swelling in her feet but has not noticed any weight gain (units unknown) (unknown) (unknown) (no date) (unknown) (unknown) icterus. No injection or drainage. (units unknown) (unknown) (unknown) (no date) (unknown) (unknown) is unusual for her to feel short of breath with exertion, she does feel that she (units unknown) (unknown) (unknown) (no date) (unknown) (unknown) joint tenderness. (units unknown) (unknown) (unknown) (no date) (unknown) (unknown) loose stools which have been unchanged for her. She states it is somewhat (units unknown) (unknown) (unknown) (no date) (unknown) (unknown) negative COVID flu test but they did a 12 lead that they thought was concerning (units unknown) (unknown) (unknown) (no date) (unknown) (unknown) occasionally fisherman's friend harshages. She endorses chronic intermittent (units unknown) (unknown) (unknown) (no date) (unknown) (unknown) or swelling of her ankles or anywhere else. She states the cough has been (units unknown) (unknown) (unknown) (no date) (unknown) (unknown) penicillin G [PENICILLIN G] Allergy Unknown Verified 08/17/22 13:06 (units unknown) (unknown) (unknown) (no date) (unknown) (unknown) presents with concern for fatigue, a cough and feeling somewhat short of breath (units unknown) (unknown) (unknown) (no date) (unknown) (unknown) productive with mucus coming up. She denies fevers, chills, loss of appetite, (units unknown) (unknown) (unknown) (no date) (unknown) (unknown) rales, or rhonchi. (units unknown) (unknown) (unknown) (no date) (unknown) (unknown) seen.? No pleural effusions or pneumothorax.? (units unknown) (unknown) (unknown) (no date) (unknown) (unknown) sick contacts. Pt states she went to [facility] and was seen there and had a (units unknown) (unknown) (unknown) (no date) (unknown) (unknown) tonsillar hypertrophy or exudate. Airway patent. (units unknown) (unknown) (unknown) (no date) (unknown) (unknown) unremarkable.? (units unknown) (unknown) Result panel 127 (unknown) (no date) (unknown) (unknown) (no value) (units unknown) (unknown) (unknown) (no date) (unknown) (unknown) (units unknown) (unknown) (unknown) (no date) (unknown) (unknown) [id number] (units unknown) (unknown) (unknown) (no date) (unknown) (unknown) 08/17/22 08/17/22 08/17/22 Range/Units (units unknown) (unknown) (unknown) (no date) (unknown) (unknown) 08/17/22 13:06 (units unknown) (unknown) (unknown) (no date) (unknown) (unknown) 08/17/22 13:16 (units unknown) (unknown) (unknown) (no date) (unknown) (unknown) 08/17/22 13:20 (units unknown) (unknown) (unknown) (no date) (unknown) (unknown) 08/17/22 14:47 (units unknown) (unknown) (unknown) (no date) (unknown) (unknown) 08/17/22 Range/Units (units unknown) (unknown) (unknown) (no date) (unknown) (unknown) 08/17/22 (units unknown) (unknown) (unknown) (no date) (unknown) (unknown) [address] [place] [address] (units unknown) (unknown) (unknown) (no date) (unknown) (unknown) 13:01 (units unknown) (unknown) (unknown) (no date) (unknown) (unknown) 13:20 13:20 13:20 (units unknown) (unknown) (unknown) (no date) (unknown) (unknown) 13:20 (units unknown) (unknown) (unknown) (no date) (unknown) (unknown) 1445 (units unknown) (unknown) (unknown) (no date) (unknown) (unknown) 3-4 days of persistent bothersome wet sounding cough sent by [facility] (units unknown) (unknown) (unknown) (no date) (unknown) (unknown) 82-year-old female with a history of small-bowel obstruction with resection (units unknown) (unknown) (unknown) (no date) (unknown) (unknown) ? (units unknown) (unknown) (unknown) (no date) (unknown) (unknown) ALT (<35) IU/L (units unknown) (unknown) (unknown) (no date) (unknown) (unknown) ALT 40 H (<35) IU/L (units unknown) (unknown) (unknown) (no date) (unknown) (unknown) ANTIBIOTICS)] (units unknown) (unknown) (unknown) (no date) (unknown) (unknown) AST (14-36) IU/L (units unknown) (unknown) (unknown) (no date) (unknown) (unknown) AST 52 H (14-36) IU/L (units unknown) (unknown) (unknown) (no date) (unknown) (unknown) Accession Number: [id number] ?? (units unknown) (unknown) (unknown) (no date) (unknown) (unknown) Acct:[id number] (units unknown) (unknown) (unknown) (no date) (unknown) (unknown) Age/Sex: 82 / F (units unknown) (unknown) (unknown) (no date) (unknown) (unknown) Albumin (3.5-5.0) g/dL (units unknown) (unknown) (unknown) (no date) (unknown) (unknown) Albumin 3.8 (3.5-5.0) g/dL (units unknown) (unknown) (unknown) (no date) (unknown) (unknown) Albumin/Globulin Ratio (1.0-2.8) (units unknown) (unknown) (unknown) (no date) (unknown) (unknown) Albumin/Globulin Ratio 1.3 (1.0-2.8) (units unknown) (unknown) (unknown) (no date) (unknown) (unknown) Alkaline Phosphatase (38-126) U/L (units unknown) (unknown) (unknown) (no date) (unknown) (unknown) Alkaline Phosphatase 58 (38-126) U/L (units unknown) (unknown) (unknown) (no date) (unknown) (unknown) Allergies (units unknown) (unknown) (unknown) (no date) (unknown) (unknown) Allergy/AdvReac Type Severity Reaction Status Date / Time (units unknown) (unknown) (unknown) (no date) (unknown) (unknown) [place] [address] (units unknown) (unknown) (unknown) (no date) (unknown) (unknown) Antibiotics) (units unknown) (unknown) (unknown) (no date) (unknown) (unknown) Approved by: Adam Ruby M.D. on 08/17/2022 at 13:17?? (units unknown) (unknown) (unknown) (no date) (unknown) (unknown) Attestation: I personally reviewed and interpreted this ECG as follows: (units unknown) (unknown) (unknown) (no date) (unknown) (unknown) Attestation: I reviewed the patient's lab results. (units unknown) (unknown) (unknown) (no date) (unknown) (unknown) Attestation: I reviewed the patient's medical records. (units unknown) (unknown) (unknown) (no date) (unknown) (unknown) BACK: Nontender without deformity or crepitance. No flank tenderness. (units unknown) (unknown) (unknown) (no date) (unknown) (unknown) BUN (7-17) mg/dL (units unknown) (unknown) (unknown) (no date) (unknown) (unknown) BUN 16 (7-17) mg/dL (units unknown) (unknown) (unknown) (no date) (unknown) (unknown) BUN/Creatinine Ratio (6-22) (units unknown) (unknown) (unknown) (no date) (unknown) (unknown) BUN/Creatinine Ratio 43.2 H (6-22) (units unknown) (unknown) (unknown) (no date) (unknown) (unknown) Baso # (Auto) (0-100) /uL (units unknown) (unknown) (unknown) (no date) (unknown) (unknown) Baso # (Auto) 0 (0-100) /uL (units unknown) (unknown) (unknown) (no date) (unknown) (unknown) Baso % (Auto) (0-2) % (units unknown) (unknown) (unknown) (no date) (unknown) (unknown) Baso % (Auto) 0.5 (0-2) % (units unknown) (unknown) (unknown) (no date) (unknown) (unknown) Blood Pressure 163/73 H 08/17/22 13:01 (units unknown) (unknown) (unknown) (no date) (unknown) (unknown) Blood Pressure 163/73 H (units unknown) (unknown) (unknown) (no date) (unknown) (unknown) Bones and chest wall:? No suspicious bony abnormalities.? Soft tissues appear (units unknown) (unknown) (unknown) (no date) (unknown) (unknown) CARDIOVASCULAR: Regular rate and rhythm without murmurs, gallops, or rubs. (units unknown) (unknown) (unknown) (no date) (unknown) (unknown) COMPARISON:? None. (units unknown) (unknown) (unknown) (no date) (unknown) (unknown) Calcium (8.4-10.2) mg/dL (units unknown) (unknown) (unknown) (no date) (unknown) (unknown) Calcium 9.0 (8.4-10.2) mg/dL (units unknown) (unknown) (unknown) (no date) (unknown) (unknown) Carbon Dioxide (22-32) mmol/L (units unknown) (unknown) (unknown) (no date) (unknown) (unknown) Carbon Dioxide 26 (22-32) mmol/L (units unknown) (unknown) (unknown) (no date) (unknown) (unknown) Chest x-ray: (units unknown) (unknown) (unknown) (no date) (unknown) (unknown) Chief Complaint: Shortness of Breath/Dyspnea (units unknown) (unknown) (unknown) (no date) (unknown) (unknown) Chloride (98-107) mmol/L (units unknown) (unknown) (unknown) (no date) (unknown) (unknown) Chloride 101 (98-107) mmol/L (units unknown) (unknown) (unknown) (no date) (unknown) (unknown) Complete Blood Count AUTO DIFF Stat (units unknown) (unknown) (unknown) (no date) (unknown) (unknown) Comprehensive Metabolic Panel Stat (units unknown) (unknown) (unknown) (no date) (unknown) (unknown) Course Narrative: (units unknown) (unknown) (unknown) (no date) (unknown) (unknown) Course (units unknown) (unknown) (unknown) (no date) (unknown) (unknown) Creatinine (0.52-1.04) mg/dL (units unknown) (unknown) (unknown) (no date) (unknown) (unknown) Creatinine 0.37 L (0.52-1.04) mg/dL (units unknown) (unknown) (unknown) (no date) (unknown) (unknown) : 1940 Acct:[id number] (units unknown) (unknown) (unknown) (no date) (unknown) (unknown) : 1940 (units unknown) (unknown) (unknown) (no date) (unknown) (unknown) Date of Service: 08/17/22 (units unknown) (unknown) (unknown) (no date) (unknown) (unknown) Dictated by: Adam Ruby M.D. on 08/17/2022 at 13:17 ? ? (units unknown) (unknown) (unknown) (no date) (unknown) (unknown) Did discuss the results of labs thus far and the patient's EKG with her, (units unknown) (unknown) (unknown) (no date) (unknown) (unknown) Differential Diagnosis (units unknown) (unknown) (unknown) (no date) (unknown) (unknown) Differential diagnosis: Likely acute exacerbation of chronic obstructive airways (units unknown) (unknown) (unknown) (no date) (unknown) (unknown) ECG Data (units unknown) (unknown) (unknown) (no date) (unknown) (unknown) ED Orders (units unknown) (unknown) (unknown) (no date) (unknown) (unknown) EKG-12 Lead Stat (units unknown) (unknown) (unknown) (no date) (unknown) (unknown) ENT: Nose without bleeding, purulent drainage. Throat without erythema, (units unknown) (unknown) (unknown) (no date) (unknown) (unknown) ER Physician: Jeri Adam P.A-C (units unknown) (unknown) (unknown) (no date) (unknown) (unknown) EXTREMITIES: Arthritic changes to MTP joints/valgus deformity. No edema or (units unknown) (unknown) (unknown) (no date) (unknown) (unknown) EYES: Pupils equal round and reactive. Extraocular motions intact. No scleral (units unknown) (unknown) (unknown) (no date) (unknown) (unknown) Emergency Report (units unknown) (unknown) (unknown) (no date) (unknown) (unknown) Eos # (Auto) (0-450) /uL (units unknown) (unknown) (unknown) (no date) (unknown) (unknown) Eos # (Auto) 100 (0-450) /uL (units unknown) (unknown) (unknown) (no date) (unknown) (unknown) Eos % (Auto) (2-4) % (units unknown) (unknown) (unknown) (no date) (unknown) (unknown) Eos % (Auto) 1.1 L (2-4) % (units unknown) (unknown) (unknown) (no date) (unknown) (unknown) Estimated GFR > 60 (>60) mL/min (units unknown) (unknown) (unknown) (no date) (unknown) (unknown) Estimated GFR (>60) mL/min (units unknown) (unknown) (unknown) (no date) (unknown) (unknown) Exam Narrative: (units unknown) (unknown) (unknown) (no date) (unknown) (unknown) Exam (units unknown) (unknown) (unknown) (no date) (unknown) (unknown) FINDINGS:? (units unknown) (unknown) (unknown) (no date) (unknown) (unknown) GASTROINTESTINAL: Abdomen soft, non-tender, nondistended. (units unknown) (unknown) (unknown) (no date) (unknown) (unknown) GENERAL: 82 year old patient appears stated age. Well-developed patient, in mild (units unknown) (unknown) (unknown) (no date) (unknown) (unknown) General (units unknown) (unknown) (unknown) (no date) (unknown) (unknown) Globulin (1.7-4.1) g/dL (units unknown) (unknown) (unknown) (no date) (unknown) (unknown) Globulin 2.9 (1.7-4.1) g/dL (units unknown) (unknown) (unknown) (no date) (unknown) (unknown) Glucose (80-110) mg/dL (units unknown) (unknown) (unknown) (no date) (unknown) (unknown) Glucose 115 H (80-110) mg/dL (units unknown) (unknown) (unknown) (no date) (unknown) (unknown) HEAD: Atraumatic. Normocephalic. (units unknown) (unknown) (unknown) (no date) (unknown) (unknown) HPI - SOB/Dyspnea (units unknown) (unknown) (unknown) (no date) (unknown) (unknown) HPI Narrative: (units unknown) (unknown) (unknown) (no date) (unknown) (unknown) Hct (36-46) % (units unknown) (unknown) (unknown) (no date) (unknown) (unknown) Hct 36.8 (36-46) % (units unknown) (unknown) (unknown) (no date) (unknown) (unknown) Heart rate 61, normal sinus rhythm, T-wave inversions in lead III, V1 biphasic (units unknown) (unknown) (unknown) (no date) (unknown) (unknown) Hgb (12.0-16.0) g/dL (units unknown) (unknown) (unknown) (no date) (unknown) (unknown) Hgb 12.1 (12.0-16.0) g/dL (units unknown) (unknown) (unknown) (no date) (unknown) (unknown) History of Present Illness (units unknown) (unknown) (unknown) (no date) (unknown) (unknown) I agree with radiologist's interpretation of the imaging (units unknown) (unknown) (unknown) (no date) (unknown) (unknown) IMPRESSION:? COPD.? No acute cardiopulmonary pathology. (units unknown) (unknown) (unknown) (no date) (unknown) (unknown) INDICATIONS:? SOB cough (units unknown) (unknown) (unknown) (no date) (unknown) (unknown) INR (0.9-1.3) (units unknown) (unknown) (unknown) (no date) (unknown) (unknown) INR 1.1 (0.9-1.3) (units unknown) (unknown) (unknown) (no date) (unknown) (unknown) Imaging Data (units unknown) (unknown) (unknown) (no date) (unknown) (unknown) Initial Vital Signs (units unknown) (unknown) (unknown) (no date) (unknown) (unknown) Initial Vital Signs: (units unknown) (unknown) (unknown) (no date) (unknown) (unknown) Interpretation: (units unknown) (unknown) (unknown) (no date) (unknown) (unknown) [address] [address] (units unknown) (unknown) (unknown) (no date) (unknown) (unknown) [facility] (units unknown) (unknown) (unknown) (no date) (unknown) (unknown) Lab Data (units unknown) (unknown) (unknown) (no date) (unknown) (unknown) Lab Results (units unknown) (unknown) (unknown) (no date) (unknown) (unknown) Labs: (units unknown) (unknown) (unknown) (no date) (unknown) (unknown) Lactate (0.7-2.1) mmol/L (units unknown) (unknown) (unknown) (no date) (unknown) (unknown) Lactate (Lactic Acid) Stat (units unknown) (unknown) (unknown) (no date) (unknown) (unknown) Lactate 1.1 (0.7-2.1) mmol/L (units unknown) (unknown) (unknown) (no date) (unknown) (unknown) Loc: ED (units unknown) (unknown) (unknown) (no date) (unknown) (unknown) Lungs and pleura:? Lungs are clear.? Hyperinflation and chronic emphysematous (units unknown) (unknown) (unknown) (no date) (unknown) (unknown) Lymph # (Auto) (2308-1244) /uL (units unknown) (unknown) (unknown) (no date) (unknown) (unknown) Lymph # (Auto) 700 L (6481-5055) /uL (units unknown) (unknown) (unknown) (no date) (unknown) (unknown) Lymph % (Auto) (25-40) % (units unknown) (unknown) (unknown) (no date) (unknown) (unknown) Lymph % (Auto) 8.6 L (25-40) % (units unknown) (unknown) (unknown) (no date) (unknown) (unknown) MCH (26-34) PG (units unknown) (unknown) (unknown) (no date) (unknown) (unknown) MCH 31.1 (26-34) PG (units unknown) (unknown) (unknown) (no date) (unknown) (unknown) MCHC (30-36) % (units unknown) (unknown) (unknown) (no date) (unknown) (unknown) MCHC 32.8 (30-36) % (units unknown) (unknown) (unknown) (no date) (unknown) (unknown) MCV (80-100) fL (units unknown) (unknown) (unknown) (no date) (unknown) (unknown) MCV 94.7 (80-100) fL (units unknown) (unknown) (unknown) (no date) (unknown) (unknown) MDM - SOB/Dyspnea (units unknown) (unknown) (unknown) (no date) (unknown) (unknown) MDM Narrative (units unknown) (unknown) (unknown) (no date) (unknown) (unknown) MR#: [id number] (units unknown) (unknown) (unknown) (no date) (unknown) (unknown) Measure peak expiratory flow ONCE (units unknown) (unknown) (unknown) (no date) (unknown) (unknown) Mediastinum:? Mediastinal contours are normal.? Heart size is normal.? (units unknown) (unknown) (unknown) (no date) (unknown) (unknown) Medical Records (units unknown) (unknown) (unknown) (no date) (unknown) (unknown) Medical decision making narrative: (units unknown) (unknown) (unknown) (no date) (unknown) (unknown) Mode of arrival: Ambulatory (units unknown) (unknown) (unknown) (no date) (unknown) (unknown) [place] # (Auto) (0-900) /uL (units unknown) (unknown) (unknown) (no date) (unknown) (unknown) [place] # (Auto) 500 (0-900) /uL (units unknown) (unknown) (unknown) (no date) (unknown) (unknown) [place] % (Auto) (3-14) % (units unknown) (unknown) (unknown) (no date) (unknown) (unknown) [place] % (Auto) 5.9 (3-14) % (units unknown) (unknown) (unknown) (no date) (unknown) (unknown) My Impression: (units unknown) (unknown) (unknown) (no date) (unknown) (unknown) NECK: Trachea midline. Non tender (units unknown) (unknown) (unknown) (no date) (unknown) (unknown) NEURO: AOx3. (units unknown) (unknown) (unknown) (no date) (unknown) (unknown) NT-Pro-B Natriuret Pep (<450) pg/mL (units unknown) (unknown) (unknown) (no date) (unknown) (unknown) NT-Pro-B Natriuret Pep 359 (<450) pg/mL (units unknown) (unknown) (unknown) (no date) (unknown) (unknown) NT-proBNP (BNP-Adult 18+) Stat (units unknown) (unknown) (unknown) (no date) (unknown) (unknown) Narrative (units unknown) (unknown) (unknown) (no date) (unknown) (unknown) Narrative: (units unknown) (unknown) (unknown) (no date) (unknown) (unknown) Neut # (Auto) (2551-8103) /uL (units unknown) (unknown) (unknown) (no date) (unknown) (unknown) Neut # (Auto) 6900 (4103-2672) /uL (units unknown) (unknown) (unknown) (no date) (unknown) (unknown) Neut % (Auto) (50-75) % (units unknown) (unknown) (unknown) (no date) (unknown) (unknown) Neut % (Auto) 83.9 H (50-75) % (units unknown) (unknown) (unknown) (no date) (unknown) (unknown) Ordered: (units unknown) (unknown) (unknown) (no date) (unknown) (unknown) Ordering Provider: Jeri Adam P.A-C (units unknown) (unknown) (unknown) (no date) (unknown) (unknown) Orders (units unknown) (unknown) (unknown) (no date) (unknown) (unknown) Oxygen Delivery Method Room Air 08/17/22 13:01 (units unknown) (unknown) (unknown) (no date) (unknown) (unknown) Oxygen Delivery Method Room Air (units unknown) (unknown) (unknown) (no date) (unknown) (unknown) PROCEDURE:? XR CHEST 2V (units unknown) (unknown) (unknown) (no date) (unknown) (unknown) PT (10.1-12.7) SECONDS (units unknown) (unknown) (unknown) (no date) (unknown) (unknown) PT 13.1 H (10.1-12.7) SECONDS (units unknown) (unknown) (unknown) (no date) (unknown) (unknown) Patient History (units unknown) (unknown) (unknown) (no date) (unknown) (unknown) Patient: Estefanía Mcneil MR#: [id number] (units unknown) (unknown) (unknown) (no date) (unknown) (unknown) Patient: Estefanía Mcneil (units unknown) (unknown) (unknown) (no date) (unknown) (unknown) Plt Count (150-400) X103/uL (units unknown) (unknown) (unknown) (no date) (unknown) (unknown) Plt Count 179 (150-400) X103/uL (units unknown) (unknown) (unknown) (no date) (unknown) (unknown) Potassium (3.4-5.1) mmol/L (units unknown) (unknown) (unknown) (no date) (unknown) (unknown) Potassium 3.9 (3.4-5.1) mmol/L (units unknown) (unknown) (unknown) (no date) (unknown) (unknown) Procedure: XR chest 2V (units unknown) (unknown) (unknown) (no date) (unknown) (unknown) Prothrombin Time INR Stat (units unknown) (unknown) (unknown) (no date) (unknown) (unknown) Pulse Oximetry 95 08/17/22 13:01 (units unknown) (unknown) (unknown) (no date) (unknown) (unknown) Pulse Oximetry 95 (units unknown) (unknown) (unknown) (no date) (unknown) (unknown) Pulse Rate 64 08/17/22 13:01 (units unknown) (unknown) (unknown) (no date) (unknown) (unknown) Pulse Rate 64 (units unknown) (unknown) (unknown) (no date) (unknown) (unknown) RBC (4.0-5.2) X106/uL (units unknown) (unknown) (unknown) (no date) (unknown) (unknown) RBC 3.89 L (4.0-5.2) X106/uL (units unknown) (unknown) (unknown) (no date) (unknown) (unknown) RDW (11.6-14.8) % (units unknown) (unknown) (unknown) (no date) (unknown) (unknown) RDW 15.9 H (11.6-14.8) % (units unknown) (unknown) (unknown) (no date) (unknown) (unknown) RESPIRATORY: Clear to auscultation. Breath sounds equal bilaterally. No wheezes, (units unknown) (unknown) (unknown) (no date) (unknown) (unknown) RT Consult Eval and Treat NOW (units unknown) (unknown) (unknown) (no date) (unknown) (unknown) Radiologist's Impression: (units unknown) (unknown) (unknown) (no date) (unknown) (unknown) Related Data (units unknown) (unknown) (unknown) (no date) (unknown) (unknown) Respiratory Panel (Film Array) Stat (units unknown) (unknown) (unknown) (no date) (unknown) (unknown) Respiratory Rate 18 08/17/22 13:01 (units unknown) (unknown) (unknown) (no date) (unknown) (unknown) Respiratory Rate 18 (units unknown) (unknown) (unknown) (no date) (unknown) (unknown) Review of Systems (units unknown) (unknown) (unknown) (no date) (unknown) (unknown) SKIN: No rash or erythema of visible areas (units unknown) (unknown) (unknown) (no date) (unknown) (unknown) Shared decision making:: Shared decision-making was used in determining the (units unknown) (unknown) (unknown) (no date) (unknown) (unknown) Signed By: (units unknown) (unknown) (unknown) (no date) (unknown) (unknown) Signed (units unknown) (unknown) (unknown) (no date) (unknown) (unknown) Smoking Status: Never smoker (units unknown) (unknown) (unknown) (no date) (unknown) (unknown) Social History (units unknown) (unknown) (unknown) (no date) (unknown) (unknown) Sodium (137-145) mmol/L (units unknown) (unknown) (unknown) (no date) (unknown) (unknown) Sodium 133 L (137-145) mmol/L (units unknown) (unknown) (unknown) (no date) (unknown) (unknown) Source: patient (units unknown) (unknown) (unknown) (no date) (unknown) (unknown) Stated Complaint: sent by [employer], SOB (units unknown) (unknown) (unknown) (no date) (unknown) (unknown) Substance Use Type: does not use (units unknown) (unknown) (unknown) (no date) (unknown) (unknown) Sulfa (Sulfonamide Allergy Unknown Verified 08/17/22 13:06 (units unknown) (unknown) (unknown) (no date) (unknown) (unknown) Surgical changes and devices:? None.? (units unknown) (unknown) (unknown) (no date) (unknown) (unknown) T-wave lead V3 otherwise unremarkable EKG with a no ectopy or ST changes noted (units unknown) (unknown) (unknown) (no date) (unknown) (unknown) TECHNIQUE:? 2 views of the chest were acquired.? (units unknown) (unknown) (unknown) (no date) (unknown) (unknown) Temperature 97.9 F 08/17/22 13:01 (units unknown) (unknown) (unknown) (no date) (unknown) (unknown) Temperature 97.9 F (units unknown) (unknown) (unknown) (no date) (unknown) (unknown) Tetracyclines [TETRACYCLINES] Allergy Unknown Verified 08/17/22 13:06 (units unknown) (unknown) (unknown) (no date) (unknown) (unknown) This is a rather well-appearing 82-year-old female who presents with concern for (units unknown) (unknown) (unknown) (no date) (unknown) (unknown) Time Seen by Provider: 08/17/22 13:19 (units unknown) (unknown) (unknown) (no date) (unknown) (unknown) Total Bilirubin (0.2-1.3) mg/dL (units unknown) (unknown) (unknown) (no date) (unknown) (unknown) Total Bilirubin 0.5 (0.2-1.3) mg/dL (units unknown) (unknown) (unknown) (no date) (unknown) (unknown) Total Protein (6.3-8.2) g/dL (units unknown) (unknown) (unknown) (no date) (unknown) (unknown) Total Protein 6.7 (6.3-8.2) g/dL (units unknown) (unknown) (unknown) (no date) (unknown) (unknown) Treatment and disposition (units unknown) (unknown) (unknown) (no date) (unknown) (unknown) Troponin I < 0.012 (0.01-0.034) ng/mL (units unknown) (unknown) (unknown) (no date) (unknown) (unknown) Troponin I (0.01-0.034) ng/mL (units unknown) (unknown) (unknown) (no date) (unknown) (unknown) Troponin I Stat (units unknown) (unknown) (unknown) (no date) (unknown) (unknown) Unremarkable except as noted in the HPI (units unknown) (unknown) (unknown) (no date) (unknown) (unknown) Vital Signs - 8 hr (units unknown) (unknown) (unknown) (no date) (unknown) (unknown) Vital Signs (units unknown) (unknown) (unknown) (no date) (unknown) (unknown) Vital signs: (units unknown) (unknown) (unknown) (no date) (unknown) (unknown) WBC (4.5-11.0) X103/uL (units unknown) (unknown) (unknown) (no date) (unknown) (unknown) WBC 8.3 (4.5-11.0) X103/uL (units unknown) (unknown) (unknown) (no date) (unknown) (unknown) XR chest 2V Stat (units unknown) (unknown) (unknown) (no date) (unknown) (unknown) XRay Report (units unknown) (unknown) (unknown) (no date) (unknown) (unknown) [Embedded Image Not Available] (units unknown) (unknown) (unknown) (no date) (unknown) (unknown) [SULFA (SULFONAMIDE (units unknown) (unknown) (unknown) (no date) (unknown) (unknown) abdominal pain, chest pain or any other symptoms. Patient does state that she (units unknown) (unknown) (unknown) (no date) (unknown) (unknown) after finding negative flu and COVID and an EKG that they felt was concerning (units unknown) (unknown) (unknown) (no date) (unknown) (unknown) alcohol intake frequency: 0-2 drinks per day (units unknown) (unknown) (unknown) (no date) (unknown) (unknown) and short of breath with exertion over the past 2 or 3 days. Patient states it (units unknown) (unknown) (unknown) (no date) (unknown) (unknown) any diagnosis of COPD. Patient stated she did not want to take any steroid (units unknown) (unknown) (unknown) (no date) (unknown) (unknown) bothersome as it is going on 24 hours a day she is been taking Mucinex and (units unknown) (unknown) (unknown) (no date) (unknown) (unknown) changes are (units unknown) (unknown) (unknown) (no date) (unknown) (unknown) changes noted on her x-ray she does have a distant 13 year history but denied (units unknown) (unknown) (unknown) (no date) (unknown) (unknown) cough and shortness of breath recently. This returns unremarkable and given (units unknown) (unknown) (unknown) (no date) (unknown) (unknown) cough. Based on labs and chest x-ray as well as exam, low suspicion for a (units unknown) (unknown) (unknown) (no date) (unknown) (unknown) days repeat troponins are not obtained. Respiratory viral panel is obtained as (units unknown) (unknown) (unknown) (no date) (unknown) (unknown) discussed options noting that her chest x-ray suggestive of chronic mild (units unknown) (unknown) (unknown) (no date) (unknown) (unknown) disease, community acquired pneumonia and other (Viral URI, CHF, [place]) (units unknown) (unknown) (unknown) (no date) (unknown) (unknown) distress, well-appearing. (units unknown) (unknown) (unknown) (no date) (unknown) (unknown) due to some depression changes and sent her here for further evaluation. 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 EKG today in the emergency department is (units unknown) (unknown) (unknown) (no date) (unknown) (unknown) has a friend that recently tested positive for COVID but otherwise has not had (units unknown) (unknown) (unknown) (no date) (unknown) (unknown) has maybe had some mild swelling in her feet but has not noticed any weight gain (units unknown) (unknown) (unknown) (no date) (unknown) (unknown) icterus. No injection or drainage. (units unknown) (unknown) (unknown) (no date) (unknown) (unknown) is interested in cough medicine. Labs are generally looking good however she (units unknown) (unknown) (unknown) (no date) (unknown) (unknown) is unusual for her to feel short of breath with exertion, she does feel that she (units unknown) (unknown) (unknown) (no date) (unknown) (unknown) joint tenderness. (units unknown) (unknown) (unknown) (no date) (unknown) (unknown) loose stools which have been unchanged for her. She states it is somewhat (units unknown) (unknown) (unknown) (no date) (unknown) (unknown) medication, she is interested in receiving cough medicine for her bothersome (units unknown) (unknown) (unknown) (no date) (unknown) (unknown) negative COVID flu test but they did a 12 lead that they thought was concerning (units unknown) (unknown) (unknown) (no date) (unknown) (unknown) occasionally [employer]. She endorses chronic intermittent (units unknown) (unknown) (unknown) (no date) (unknown) (unknown) or swelling of her ankles or anywhere else. She states the cough has been (units unknown) (unknown) (unknown) (no date) (unknown) (unknown) outpatient follow-up and treatment (units unknown) (unknown) (unknown) (no date) (unknown) (unknown) patient is anxious to know what could be causing her symptoms. Did discuss (units unknown) (unknown) (unknown) (no date) (unknown) (unknown) patient's evaluation today in the emergency department and her plan for (units unknown) (unknown) (unknown) (no date) (unknown) (unknown) penicillin G [PENICILLIN G] Allergy Unknown Verified 08/17/22 13:06 (units unknown) (unknown) (unknown) (no date) (unknown) (unknown) pneumonia and do not feel that antibiotics are warranted. (units unknown) (unknown) (unknown) (no date) (unknown) (unknown) presents with concern for fatigue, a cough and feeling somewhat short of breath (units unknown) (unknown) (unknown) (no date) (unknown) (unknown) productive with mucus coming up. She denies fevers, chills, loss of appetite, (units unknown) (unknown) (unknown) (no date) (unknown) (unknown) rales, or rhonchi. (units unknown) (unknown) (unknown) (no date) (unknown) (unknown) seen.? No pleural effusions or pneumothorax.? (units unknown) (unknown) (unknown) (no date) (unknown) (unknown) sick contacts. Pt states she went to [facility] and was seen there and had a (units unknown) (unknown) (unknown) (no date) (unknown) (unknown) still has respiratory panel pending. (units unknown) (unknown) (unknown) (no date) (unknown) (unknown) that she is not had any chest pain and her symptoms have been persistent for 3-4 (units unknown) (unknown) (unknown) (no date) (unknown) (unknown) tonsillar hypertrophy or exudate. Airway patent. (units unknown) (unknown) (unknown) (no date) (unknown) (unknown) unremarkable, cardiac workup is performed given the patient's age and report of (units unknown) (unknown) (unknown) (no date) (unknown) (unknown) unremarkable.? (units unknown) (unknown) (unknown) (no date) (unknown) (unknown) with her possibly treating her with a course of steroids given emphysematous (units unknown) (unknown) Result panel 128 (unknown) (no date) (unknown) (unknown) Detected (units unknown) (unknown) (unknown) (no date) (unknown) (unknown) Not Detected (units unknown) (unknown) (unknown) (no date) (unknown) (unknown) Not Detected (units unknown) (unknown) Result panel 129 (unknown) (no date) (unknown) (unknown) (no value) (units unknown) (unknown) (unknown) (no date) (unknown) (unknown) (units unknown) (unknown) (unknown) (no date) (unknown) (unknown) [id number] (units unknown) (unknown) (unknown) (no date) (unknown) (unknown) 08/17/22 08/17/22 08/17/22 Range/Units (units unknown) (unknown) (unknown) (no date) (unknown) (unknown) 08/17/22 08/17/22 Range/Units (units unknown) (unknown) (unknown) (no date) (unknown) (unknown) 08/17/22 13:06 (units unknown) (unknown) (unknown) (no date) (unknown) (unknown) 08/17/22 13:16 (units unknown) (unknown) (unknown) (no date) (unknown) (unknown) 08/17/22 13:20 (units unknown) (unknown) (unknown) (no date) (unknown) (unknown) 08/17/22 14:47 (units unknown) (unknown) (unknown) (no date) (unknown) (unknown) 08/17/22 (units unknown) (unknown) (unknown) (no date) (unknown) (unknown) 100 mg PO TID PRN (Reason: cough) 7 Days Qty: 21 1RF (units unknown) (unknown) (unknown) (no date) (unknown) (unknown) [address] (units unknown) (unknown) (unknown) (no date) (unknown) (unknown) 13:01 08/17/22 (units unknown) (unknown) (unknown) (no date) (unknown) (unknown) 13:20 13:20 13:20 (units unknown) (unknown) (unknown) (no date) (unknown) (unknown) 13:20 14:47 (units unknown) (unknown) (unknown) (no date) (unknown) (unknown) 1445 (units unknown) (unknown) (unknown) (no date) (unknown) (unknown) 15:19 08/17/ (units unknown) (unknown) (unknown) (no date) (unknown) (unknown) 16:23 (units unknown) (unknown) (unknown) (no date) (unknown) (unknown) 3-4 days of persistent bothersome wet sounding cough sent by [facility] (units unknown) (unknown) (unknown) (no date) (unknown) (unknown) 82-year-old female with a history of small-bowel obstruction with resection (units unknown) (unknown) (unknown) (no date) (unknown) (unknown) ? (units unknown) (unknown) (unknown) (no date) (unknown) (unknown) ALT (<35) IU/L (units unknown) (unknown) (unknown) (no date) (unknown) (unknown) ALT 40 H (<35) IU/L (units unknown) (unknown) (unknown) (no date) (unknown) (unknown) ANTIBIOTICS)] (units unknown) (unknown) (unknown) (no date) (unknown) (unknown) AST (14-36) IU/L (units unknown) (unknown) (unknown) (no date) (unknown) (unknown) AST 52 H (14-36) IU/L (units unknown) (unknown) (unknown) (no date) (unknown) (unknown) Accession Number: [id number] ?? (units unknown) (unknown) (unknown) (no date) (unknown) (unknown) Acct:[id number] (units unknown) (unknown) (unknown) (no date) (unknown) (unknown) Activity Restrictions/Additi onal Instructions: (units unknown) (unknown) (unknown) (no date) (unknown) (unknown) Adenovirus (PCR) (Not Detect) (units unknown) (unknown) (unknown) (no date) (unknown) (unknown) Adenovirus (PCR) Not detected (Not Detect) (units unknown) (unknown) (unknown) (no date) (unknown) (unknown) Age/Sex: 82 / F (units unknown) (unknown) (unknown) (no date) (unknown) (unknown) Albumin (3.5-5.0) g/dL (units unknown) (unknown) (unknown) (no date) (unknown) (unknown) Albumin 3.8 (3.5-5.0) g/dL (units unknown) (unknown) (unknown) (no date) (unknown) (unknown) Albumin/Globulin Ratio (1.0-2.8) (units unknown) (unknown) (unknown) (no date) (unknown) (unknown) Albumin/Globulin Ratio 1.3 (1.0-2.8) (units unknown) (unknown) (unknown) (no date) (unknown) (unknown) Alkaline Phosphatase (38-126) U/L (units unknown) (unknown) (unknown) (no date) (unknown) (unknown) Alkaline Phosphatase 58 (38-126) U/L (units unknown) (unknown) (unknown) (no date) (unknown) (unknown) Allergies (units unknown) (unknown) (unknown) (no date) (unknown) (unknown) Allergy/AdvReac Type Severity Reaction Status Date / Time (units unknown) (unknown) (unknown) (no date) (unknown) (unknown) [place] [address] (units unknown) (unknown) (unknown) (no date) (unknown) (unknown) Antibiotics) (units unknown) (unknown) (unknown) (no date) (unknown) (unknown) Approved by: Adam Ruby M.D. on 08/17/2022 at 13:17?? (units unknown) (unknown) (unknown) (no date) (unknown) (unknown) Attestation: I personally reviewed and interpreted this ECG as follows: (units unknown) (unknown) (unknown) (no date) (unknown) (unknown) Attestation: I reviewed the patient's lab results. (units unknown) (unknown) (unknown) (no date) (unknown) (unknown) Attestation: I reviewed the patient's medical records. (units unknown) (unknown) (unknown) (no date) (unknown) (unknown) B. pertussis DNA (PCR) (Not Detecte) (units unknown) (unknown) (unknown) (no date) (unknown) (unknown) B. pertussis DNA (PCR) Not detected (Not Detecte) (units unknown) (unknown) (unknown) (no date) (unknown) (unknown) B.parapertussis DNA PCR (Not Detecte) (units unknown) (unknown) (unknown) (no date) (unknown) (unknown) B.parapertussis DNA PCR Not detected (Not Detecte) (units unknown) (unknown) (unknown) (no date) (unknown) (unknown) BACK: Nontender without deformity or crepitance. No flank tenderness. (units unknown) (unknown) (unknown) (no date) (unknown) (unknown) BUN (7-17) mg/dL (units unknown) (unknown) (unknown) (no date) (unknown) (unknown) BUN 16 (7-17) mg/dL (units unknown) (unknown) (unknown) (no date) (unknown) (unknown) BUN/Creatinine Ratio (6-22) (units unknown) (unknown) (unknown) (no date) (unknown) (unknown) BUN/Creatinine Ratio 43.2 H (6-22) (units unknown) (unknown) (unknown) (no date) (unknown) (unknown) Baso # (Auto) (0-100) /uL (units unknown) (unknown) (unknown) (no date) (unknown) (unknown) Baso # (Auto) 0 (0-100) /uL (units unknown) (unknown) (unknown) (no date) (unknown) (unknown) Baso % (Auto) (0-2) % (units unknown) (unknown) (unknown) (no date) (unknown) (unknown) Baso % (Auto) 0.5 (0-2) % (units unknown) (unknown) (unknown) (no date) (unknown) (unknown) Benzonatate (Benzonatate 100 Mg Capsule) 100 mg PO NOW ONE (units unknown) (unknown) (unknown) (no date) (unknown) (unknown) Blood Pressure 163/73 H 08/17/22 13:01 (units unknown) (unknown) (unknown) (no date) (unknown) (unknown) Blood Pressure 163/73 H 175/74 H 180/77 H (units unknown) (unknown) (unknown) (no date) (unknown) (unknown) Bones and chest wall:? No suspicious bony abnormalities.? Soft tissues appear (units unknown) (unknown) (unknown) (no date) (unknown) (unknown) CARDIOVASCULAR: Regular rate and rhythm without murmurs, gallops, or rubs. (units unknown) (unknown) (unknown) (no date) (unknown) (unknown) COMPARISON:? None. (units unknown) (unknown) (unknown) (no date) (unknown) (unknown) Calcium (8.4-10.2) mg/dL (units unknown) (unknown) (unknown) (no date) (unknown) (unknown) Calcium 9.0 (8.4-10.2) mg/dL (units unknown) (unknown) (unknown) (no date) (unknown) (unknown) Carbon Dioxide (22-32) mmol/L (units unknown) (unknown) (unknown) (no date) (unknown) (unknown) Carbon Dioxide 26 (22-32) mmol/L (units unknown) (unknown) (unknown) (no date) (unknown) (unknown) Chest x-ray: (units unknown) (unknown) (unknown) (no date) (unknown) (unknown) Chief Complaint: Shortness of Breath/Dyspnea (units unknown) (unknown) (unknown) (no date) (unknown) (unknown) Chlamy pneumoniae PCR (Not Detect) (units unknown) (unknown) (unknown) (no date) (unknown) (unknown) Chlamy pneumoniae PCR Not detected (Not Detect) (units unknown) (unknown) (unknown) (no date) (unknown) (unknown) Chloride (98-107) mmol/L (units unknown) (unknown) (unknown) (no date) (unknown) (unknown) Chloride 101 (98-107) mmol/L (units unknown) (unknown) (unknown) (no date) (unknown) (unknown) Clinical Impression: (units unknown) (unknown) (unknown) (no date) (unknown) (unknown) Complete Blood Count AUTO DIFF Stat (units unknown) (unknown) (unknown) (no date) (unknown) (unknown) Comprehensive Metabolic Panel Stat (units unknown) (unknown) (unknown) (no date) (unknown) (unknown) Coronavirus 229E (PCR) (Not Detect) (units unknown) (unknown) (unknown) (no date) (unknown) (unknown) Coronavirus 229E (PCR) Not detected (Not Detect) (units unknown) (unknown) (unknown) (no date) (unknown) (unknown) Coronavirus HKU1 (PCR) (Not Detect) (units unknown) (unknown) (unknown) (no date) (unknown) (unknown) Coronavirus HKU1 (PCR) Not detected (Not Detect) (units unknown) (unknown) (unknown) (no date) (unknown) (unknown) Coronavirus NL63 (PCR) (Not Detect) (units unknown) (unknown) (unknown) (no date) (unknown) (unknown) Coronavirus NL63 (PCR) Not detected (Not Detect) (units unknown) (unknown) (unknown) (no date) (unknown) (unknown) Coronavirus OC43 (PCR) (Not Detect) (units unknown) (unknown) (unknown) (no date) (unknown) (unknown) Coronavirus OC43 (PCR) Detected H (Not Detect) (units unknown) (unknown) (unknown) (no date) (unknown) (unknown) Coronavirus infection, Cough (units unknown) (unknown) (unknown) (no date) (unknown) (unknown) Course Narrative: (units unknown) (unknown) (unknown) (no date) (unknown) (unknown) Course (units unknown) (unknown) (unknown) (no date) (unknown) (unknown) Creatinine (0.52-1.04) mg/dL (units unknown) (unknown) (unknown) (no date) (unknown) (unknown) Creatinine 0.37 L (0.52-1.04) mg/dL (units unknown) (unknown) (unknown) (no date) (unknown) (unknown) : 1940 Acct:[id number] (units unknown) (unknown) (unknown) (no date) (unknown) (unknown) : 1940 (units unknown) (unknown) (unknown) (no date) (unknown) (unknown) Date of Service: 08/17/22 (units unknown) (unknown) (unknown) (no date) (unknown) (unknown) Departure (units unknown) (unknown) (unknown) (no date) (unknown) (unknown) Dictated by: Adam Ruby M.D. on 08/17/2022 at 13:17 ? ? (units unknown) (unknown) (unknown) (no date) (unknown) (unknown) Did discuss the results of labs thus far and the patient's EKG with her, (units unknown) (unknown) (unknown) (no date) (unknown) (unknown) Differential Diagnosis (units unknown) (unknown) (unknown) (no date) (unknown) (unknown) Differential diagnosis: Likely acute exacerbation of chronic obstructive airways (units unknown) (unknown) (unknown) (no date) (unknown) (unknown) Discharge Plan (units unknown) (unknown) (unknown) (no date) (unknown) (unknown) Discontinued Medications (units unknown) (unknown) (unknown) (no date) (unknown) (unknown) Documented By: KB (units unknown) (unknown) (unknown) (no date) (unknown) (unknown) ECG Data (units unknown) (unknown) (unknown) (no date) (unknown) (unknown) ED Orders (units unknown) (unknown) (unknown) (no date) (unknown) (unknown) EKG-12 Lead Stat (units unknown) (unknown) (unknown) (no date) (unknown) (unknown) ENT: Nose without bleeding, purulent drainage. Throat without erythema, (units unknown) (unknown) (unknown) (no date) (unknown) (unknown) ER Physician: Jeri Adam P.A-C (units unknown) (unknown) (unknown) (no date) (unknown) (unknown) EXTREMITIES: Arthritic changes to MTP joints/valgus deformity. No edema or (units unknown) (unknown) (unknown) (no date) (unknown) (unknown) EYES: Pupils equal round and reactive. Extraocular motions intact. No scleral (units unknown) (unknown) (unknown) (no date) (unknown) (unknown) Emergency Report (units unknown) (unknown) (unknown) (no date) (unknown) (unknown) Entero/Rhino (PCR) (Not Detect) (units unknown) (unknown) (unknown) (no date) (unknown) (unknown) Entero/Rhino (PCR) Not detected (Not Detect) (units unknown) (unknown) (unknown) (no date) (unknown) (unknown) Eos # (Auto) (0-450) /uL (units unknown) (unknown) (unknown) (no date) (unknown) (unknown) Eos # (Auto) 100 (0-450) /uL (units unknown) (unknown) (unknown) (no date) (unknown) (unknown) Eos % (Auto) (2-4) % (units unknown) (unknown) (unknown) (no date) (unknown) (unknown) Eos % (Auto) 1.1 L (2-4) % (units unknown) (unknown) (unknown) (no date) (unknown) (unknown) Estimated GFR > 60 (>60) mL/min (units unknown) (unknown) (unknown) (no date) (unknown) (unknown) Estimated GFR (>60) mL/min (units unknown) (unknown) (unknown) (no date) (unknown) (unknown) Exam Narrative: (units unknown) (unknown) (unknown) (no date) (unknown) (unknown) Exam (units unknown) (unknown) (unknown) (no date) (unknown) (unknown) FINDINGS:? (units unknown) (unknown) (unknown) (no date) (unknown) (unknown) GASTROINTESTINAL: Abdomen soft, non-tender, nondistended. (units unknown) (unknown) (unknown) (no date) (unknown) (unknown) GENERAL: 82 year old patient appears stated age. Well-developed patient, in mild (units unknown) (unknown) (unknown) (no date) (unknown) (unknown) General (units unknown) (unknown) (unknown) (no date) (unknown) (unknown) Globulin (1.7-4.1) g/dL (units unknown) (unknown) (unknown) (no date) (unknown) (unknown) Globulin 2.9 (1.7-4.1) g/dL (units unknown) (unknown) (unknown) (no date) (unknown) (unknown) Glucose (80-110) mg/dL (units unknown) (unknown) (unknown) (no date) (unknown) (unknown) Glucose 115 H (80-110) mg/dL (units unknown) (unknown) (unknown) (no date) (unknown) (unknown) HEAD: Atraumatic. Normocephalic. (units unknown) (unknown) (unknown) (no date) (unknown) (unknown) HEART Score (units unknown) (unknown) (unknown) (no date) (unknown) (unknown) HPI - SOB/Dyspnea (units unknown) (unknown) (unknown) (no date) (unknown) (unknown) HPI Narrative: (units unknown) (unknown) (unknown) (no date) (unknown) (unknown) Hct (36-46) % (units unknown) (unknown) (unknown) (no date) (unknown) (unknown) Hct 36.8 (36-46) % (units unknown) (unknown) (unknown) (no date) (unknown) (unknown) Heart Score Age: > or = 65 years old (units unknown) (unknown) (unknown) (no date) (unknown) (unknown) Heart Score EKG: Normal (units unknown) (unknown) (unknown) (no date) (unknown) (unknown) Heart Score Total: 2 (units unknown) (unknown) (unknown) (no date) (unknown) (unknown) Heart Score history: Slightly Suspicious (units unknown) (unknown) (unknown) (no date) (unknown) (unknown) Heart Score risk factors: No known risk factors (units unknown) (unknown) (unknown) (no date) (unknown) (unknown) Heart Score troponin: < or = to normal limit (units unknown) (unknown) (unknown) (no date) (unknown) (unknown) Heart rate 61, normal sinus rhythm, T-wave inversions in lead III, V1 biphasic (units unknown) (unknown) (unknown) (no date) (unknown) (unknown) Hgb (12.0-16.0) g/dL (units unknown) (unknown) (unknown) (no date) (unknown) (unknown) Hgb 12.1 (12.0-16.0) g/dL (units unknown) (unknown) (unknown) (no date) (unknown) (unknown) History of Present Illness (units unknown) (unknown) (unknown) (no date) (unknown) (unknown) Human Metapneumovir PCR (Not Detect) (units unknown) (unknown) (unknown) (no date) (unknown) (unknown) Human Metapneumovir PCR Not detected (Not Detect) (units unknown) (unknown) (unknown) (no date) (unknown) (unknown) I agree with radiologist's interpretation of the imaging (units unknown) (unknown) (unknown) (no date) (unknown) (unknown) I did prescribed some cough medicine for you which I hope is helpful. We did (units unknown) (unknown) (unknown) (no date) (unknown) (unknown) IMPRESSION:? COPD.? No acute cardiopulmonary pathology. (units unknown) (unknown) (unknown) (no date) (unknown) (unknown) INDICATIONS:? SOB cough (units unknown) (unknown) (unknown) (no date) (unknown) (unknown) INR (0.9-1.3) (units unknown) (unknown) (unknown) (no date) (unknown) (unknown) INR 1.1 (0.9-1.3) (units unknown) (unknown) (unknown) (no date) (unknown) (unknown) Imaging Data (units unknown) (unknown) (unknown) (no date) (unknown) (unknown) Influenza Type A (PCR) (Not Detect) (units unknown) (unknown) (unknown) (no date) (unknown) (unknown) Influenza Type A (PCR) Not detected (Not Detect) (units unknown) (unknown) (unknown) (no date) (unknown) (unknown) Influenza Type B (PCR) (Not Detect) (units unknown) (unknown) (unknown) (no date) (unknown) (unknown) Influenza Type B (PCR) Not detected (Not Detect) (units unknown) (unknown) (unknown) (no date) (unknown) (unknown) Initial Vital Signs (units unknown) (unknown) (unknown) (no date) (unknown) (unknown) Initial Vital Signs: (units unknown) (unknown) (unknown) (no date) (unknown) (unknown) Interpretation: (units unknown) (unknown) (unknown) (no date) (unknown) (unknown) [address] [address] (units unknown) (unknown) (unknown) (no date) (unknown) (unknown) [facility] (units unknown) (unknown) (unknown) (no date) (unknown) (unknown) Lab Data (units unknown) (unknown) (unknown) (no date) (unknown) (unknown) Lab Results (units unknown) (unknown) (unknown) (no date) (unknown) (unknown) Labs: (units unknown) (unknown) (unknown) (no date) (unknown) (unknown) Lactate (0.7-2.1) mmol/L (units unknown) (unknown) (unknown) (no date) (unknown) (unknown) Lactate (Lactic Acid) Stat (units unknown) (unknown) (unknown) (no date) (unknown) (unknown) Lactate 1.1 (0.7-2.1) mmol/L (units unknown) (unknown) (unknown) (no date) (unknown) (unknown) Last Admin: 08/17/22 16:20 Dose: 100 mg (units unknown) (unknown) (unknown) (no date) (unknown) (unknown) Loc: ED (units unknown) (unknown) (unknown) (no date) (unknown) (unknown) Lungs and pleura:? Lungs are clear.? Hyperinflation and chronic emphysematous (units unknown) (unknown) (unknown) (no date) (unknown) (unknown) Lymph # (Auto) (8443-0130) /uL (units unknown) (unknown) (unknown) (no date) (unknown) (unknown) Lymph # (Auto) 700 L (9667-2764) /uL (units unknown) (unknown) (unknown) (no date) (unknown) (unknown) Lymph % (Auto) (25-40) % (units unknown) (unknown) (unknown) (no date) (unknown) (unknown) Lymph % (Auto) 8.6 L (25-40) % (units unknown) (unknown) (unknown) (no date) (unknown) (unknown) M. pneumoniae (PCR) (Not Detect) (units unknown) (unknown) (unknown) (no date) (unknown) (unknown) M. pneumoniae (PCR) Not detected (Not Detect) (units unknown) (unknown) (unknown) (no date) (unknown) (unknown) MCH (26-34) PG (units unknown) (unknown) (unknown) (no date) (unknown) (unknown) MCH 31.1 (26-34) PG (units unknown) (unknown) (unknown) (no date) (unknown) (unknown) MCHC (30-36) % (units unknown) (unknown) (unknown) (no date) (unknown) (unknown) MCHC 32.8 (30-36) % (units unknown) (unknown) (unknown) (no date) (unknown) (unknown) MCV (80-100) fL (units unknown) (unknown) (unknown) (no date) (unknown) (unknown) MCV 94.7 (80-100) fL (units unknown) (unknown) (unknown) (no date) (unknown) (unknown) MDM - SOB/Dyspnea (units unknown) (unknown) (unknown) (no date) (unknown) (unknown) MDM Narrative (units unknown) (unknown) (unknown) (no date) (unknown) (unknown) MR#: [id number] (units unknown) (unknown) (unknown) (no date) (unknown) (unknown) Measure peak expiratory flow ONCE (units unknown) (unknown) (unknown) (no date) (unknown) (unknown) Mediastinum:? Mediastinal contours are normal.? Heart size is normal.? (units unknown) (unknown) (unknown) (no date) (unknown) (unknown) Medical Records (units unknown) (unknown) (unknown) (no date) (unknown) (unknown) Medical decision making narrative: (units unknown) (unknown) (unknown) (no date) (unknown) (unknown) Medication Instructions Recorded (units unknown) (unknown) (unknown) (no date) (unknown) (unknown) Mode of arrival: Ambulatory (units unknown) (unknown) (unknown) (no date) (unknown) (unknown) [place] # (Auto) (0-900) /uL (units unknown) (unknown) (unknown) (no date) (unknown) (unknown) [place] # (Auto) 500 (0-900) /uL (units unknown) (unknown) (unknown) (no date) (unknown) (unknown) [place] % (Auto) (3-14) % (units unknown) (unknown) (unknown) (no date) (unknown) (unknown) [place] % (Auto) 5.9 (3-14) % (units unknown) (unknown) (unknown) (no date) (unknown) (unknown) My Impression: (units unknown) (unknown) (unknown) (no date) (unknown) (unknown) NECK: Trachea midline. Non tender (units unknown) (unknown) (unknown) (no date) (unknown) (unknown) NEURO: AOx3. (units unknown) (unknown) (unknown) (no date) (unknown) (unknown) NT-Pro-B Natriuret Pep (<450) pg/mL (units unknown) (unknown) (unknown) (no date) (unknown) (unknown) NT-Pro-B Natriuret Pep 359 (<450) pg/mL (units unknown) (unknown) (unknown) (no date) (unknown) (unknown) NT-proBNP (BNP-Adult 18+) Stat (units unknown) (unknown) (unknown) (no date) (unknown) (unknown) Narrative (units unknown) (unknown) (unknown) (no date) (unknown) (unknown) Narrative: (units unknown) (unknown) (unknown) (no date) (unknown) (unknown) Neut # (Auto) (1279-4122) /uL (units unknown) (unknown) (unknown) (no date) (unknown) (unknown) Neut # (Auto) 6900 (5183-5614) /uL (units unknown) (unknown) (unknown) (no date) (unknown) (unknown) Neut % (Auto) (50-75) % (units unknown) (unknown) (unknown) (no date) (unknown) (unknown) Neut % (Auto) 83.9 H (50-75) % (units unknown) (unknown) (unknown) (no date) (unknown) (unknown) New (units unknown) (unknown) (unknown) (no date) (unknown) (unknown) Ordered: (units unknown) (unknown) (unknown) (no date) (unknown) (unknown) Ordering Provider: Jeri Adam P.A-C (units unknown) (unknown) (unknown) (no date) (unknown) (unknown) Orders (units unknown) (unknown) (unknown) (no date) (unknown) (unknown) Oxygen Delivery Method Room Air 08/17/22 13:01 (units unknown) (unknown) (unknown) (no date) (unknown) (unknown) Oxygen Delivery Method Room Air Room Air Room Air (units unknown) (unknown) (unknown) (no date) (unknown) (unknown) PROCEDURE:? XR CHEST 2V (units unknown) (unknown) (unknown) (no date) (unknown) (unknown) PT (10.1-12.7) SECONDS (units unknown) (unknown) (unknown) (no date) (unknown) (unknown) PT 13.1 H (10.1-12.7) SECONDS (units unknown) (unknown) (unknown) (no date) (unknown) (unknown) Parainfluenza 1 (PCR) (Not Detect) (units unknown) (unknown) (unknown) (no date) (unknown) (unknown) Parainfluenza 1 (PCR) Not detected (Not Detect) (units unknown) (unknown) (unknown) (no date) (unknown) (unknown) Parainfluenza 2 (PCR) (Not Detect) (units unknown) (unknown) (unknown) (no date) (unknown) (unknown) Parainfluenza 2 (PCR) Not detected (Not Detect) (units unknown) (unknown) (unknown) (no date) (unknown) (unknown) Parainfluenza 3 (PCR) (Not Detect) (units unknown) (unknown) (unknown) (no date) (unknown) (unknown) Parainfluenza 3 (PCR) Not detected (Not Detect) (units unknown) (unknown) (unknown) (no date) (unknown) (unknown) Parainfluenza 4 (PCR) (Not Detect) (units unknown) (unknown) (unknown) (no date) (unknown) (unknown) Parainfluenza 4 (PCR) Not detected (Not Detect) (units unknown) (unknown) (unknown) (no date) (unknown) (unknown) Patient Disposition: Home (units unknown) (unknown) (unknown) (no date) (unknown) (unknown) Patient History (units unknown) (unknown) (unknown) (no date) (unknown) (unknown) Patient: Estefanía Mcneil MR#: [id number] (units unknown) (unknown) (unknown) (no date) (unknown) (unknown) Patient: Estefanía Mcneil (units unknown) (unknown) (unknown) (no date) (unknown) (unknown) Plt Count (150-400) X103/uL (units unknown) (unknown) (unknown) (no date) (unknown) (unknown) Plt Count 179 (150-400) X103/uL (units unknown) (unknown) (unknown) (no date) (unknown) (unknown) Potassium (3.4-5.1) mmol/L (units unknown) (unknown) (unknown) (no date) (unknown) (unknown) Potassium 3.9 (3.4-5.1) mmol/L (units unknown) (unknown) (unknown) (no date) (unknown) (unknown) Prescriptions: (units unknown) (unknown) (unknown) (no date) (unknown) (unknown) Previous Rx's (units unknown) (unknown) (unknown) (no date) (unknown) (unknown) Procedure: XR chest 2V (units unknown) (unknown) (unknown) (no date) (unknown) (unknown) Prothrombin Time INR Stat (units unknown) (unknown) (unknown) (no date) (unknown) (unknown) Pulse Oximetry 95 08/17/22 13:01 (units unknown) (unknown) (unknown) (no date) (unknown) (unknown) Pulse Oximetry 95 96 98 (units unknown) (unknown) (unknown) (no date) (unknown) (unknown) Pulse Rate 64 08/17/22 13:01 (units unknown) (unknown) (unknown) (no date) (unknown) (unknown) Pulse Rate 64 85 67 (units unknown) (unknown) (unknown) (no date) (unknown) (unknown) RBC (4.0-5.2) X106/uL (units unknown) (unknown) (unknown) (no date) (unknown) (unknown) RBC 3.89 L (4.0-5.2) X106/uL (units unknown) (unknown) (unknown) (no date) (unknown) (unknown) RDW (11.6-14.8) % (units unknown) (unknown) (unknown) (no date) (unknown) (unknown) RDW 15.9 H (11.6-14.8) % (units unknown) (unknown) (unknown) (no date) (unknown) (unknown) RESPIRATORY: Clear to auscultation. Breath sounds equal bilaterally. No wheezes, (units unknown) (unknown) (unknown) (no date) (unknown) (unknown) RSV (PCR) (Not Detect) (units unknown) (unknown) (unknown) (no date) (unknown) (unknown) RSV (PCR) Not detected (Not Detect) (units unknown) (unknown) (unknown) (no date) (unknown) (unknown) RT Consult Eval and Treat NOW (units unknown) (unknown) (unknown) (no date) (unknown) (unknown) Radiologist's Impression: (units unknown) (unknown) (unknown) (no date) (unknown) (unknown) Related Data (units unknown) (unknown) (unknown) (no date) (unknown) (unknown) Respiratory Panel (Film Array) Stat (units unknown) (unknown) (unknown) (no date) (unknown) (unknown) Respiratory Rate 18 08/17/22 13:01 (units unknown) (unknown) (unknown) (no date) (unknown) (unknown) Respiratory Rate 18 18 18 (units unknown) (unknown) (unknown) (no date) (unknown) (unknown) Review of Systems (units unknown) (unknown) (unknown) (no date) (unknown) (unknown) SARS-CoV-2 (PCR) (Not Detecte) (units unknown) (unknown) (unknown) (no date) (unknown) (unknown) SARS-CoV-2 (PCR) Not detected (Not Detecte) (units unknown) (unknown) (unknown) (no date) (unknown) (unknown) SKIN: No rash or erythema of visible areas (units unknown) (unknown) (unknown) (no date) (unknown) (unknown) Scores (units unknown) (unknown) (unknown) (no date) (unknown) (unknown) Shared decision making:: Shared decision-making was used in determining the (units unknown) (unknown) (unknown) (no date) (unknown) (unknown) She denies fevers, chills, loss of appetite, abdominal pain, chest pain or any (units unknown) (unknown) (unknown) (no date) (unknown) (unknown) Signed By: (units unknown) (unknown) (unknown) (no date) (unknown) (unknown) Signed (units unknown) (unknown) (unknown) (no date) (unknown) (unknown) Smoking Status: Never smoker (units unknown) (unknown) (unknown) (no date) (unknown) (unknown) Social History (units unknown) (unknown) (unknown) (no date) (unknown) (unknown) Sodium (137-145) mmol/L (units unknown) (unknown) (unknown) (no date) (unknown) (unknown) Sodium 133 L (137-145) mmol/L (units unknown) (unknown) (unknown) (no date) (unknown) (unknown) Source: patient (units unknown) (unknown) (unknown) (no date) (unknown) (unknown) Stand Alone Forms: Patient Portal/API (units unknown) (unknown) (unknown) (no date) (unknown) (unknown) Stated Complaint: sent by BLANCA [place] (units unknown) (unknown) (unknown) (no date) (unknown) (unknown) Stop: 08/17/22 16:10 (units unknown) (unknown) (unknown) (no date) (unknown) (unknown) Substance Use Type: does not use (units unknown) (unknown) (unknown) (no date) (unknown) (unknown) Sulfa (Sulfonamide Allergy Unknown Verified 08/17/22 13:06 (units unknown) (unknown) (unknown) (no date) (unknown) (unknown) Surgical changes and devices:? None.? (units unknown) (unknown) (unknown) (no date) (unknown) (unknown) T-wave lead V3 otherwise unremarkable EKG with a no ectopy or ST changes noted (units unknown) (unknown) (unknown) (no date) (unknown) (unknown) TECHNIQUE:? 2 views of the chest were acquired.? (units unknown) (unknown) (unknown) (no date) (unknown) (unknown) Temperature 97.9 F 08/17/22 13:01 (units unknown) (unknown) (unknown) (no date) (unknown) (unknown) Temperature 97.9 F (units unknown) (unknown) (unknown) (no date) (unknown) (unknown) Tetracyclines [TETRACYCLINES] Allergy Unknown Verified 08/17/22 13:06 (units unknown) (unknown) (unknown) (no date) (unknown) (unknown) Thank you for letting us be part of your care today in the emergency department. (units unknown) (unknown) (unknown) (no date) (unknown) (unknown) This is a rather well-appearing 82-year-old female who presents with concern for (units unknown) (unknown) (unknown) (no date) (unknown) (unknown) Time Seen by Provider: 08/17/22 13:19 (units unknown) (unknown) (unknown) (no date) (unknown) (unknown) Total Bilirubin (0.2-1.3) mg/dL (units unknown) (unknown) (unknown) (no date) (unknown) (unknown) Total Bilirubin 0.5 (0.2-1.3) mg/dL (units unknown) (unknown) (unknown) (no date) (unknown) (unknown) Total Protein (6.3-8.2) g/dL (units unknown) (unknown) (unknown) (no date) (unknown) (unknown) Total Protein 6.7 (6.3-8.2) g/dL (units unknown) (unknown) (unknown) (no date) (unknown) (unknown) Treatment and disposition (units unknown) (unknown) (unknown) (no date) (unknown) (unknown) Troponin I < 0.012 (0.01-0.034) ng/mL (units unknown) (unknown) (unknown) (no date) (unknown) (unknown) Troponin I (0.01-0.034) ng/mL (units unknown) (unknown) (unknown) (no date) (unknown) (unknown) Troponin I Stat (units unknown) (unknown) (unknown) (no date) (unknown) (unknown) Unremarkable except as noted in the HPI (units unknown) (unknown) (unknown) (no date) (unknown) (unknown) Vital Signs - 8 hr (units unknown) (unknown) (unknown) (no date) (unknown) (unknown) Vital Signs (units unknown) (unknown) (unknown) (no date) (unknown) (unknown) Vital signs: (units unknown) (unknown) (unknown) (no date) (unknown) (unknown) WBC (4.5-11.0) X103/uL (units unknown) (unknown) (unknown) (no date) (unknown) (unknown) WBC 8.3 (4.5-11.0) X103/uL (units unknown) (unknown) (unknown) (no date) (unknown) (unknown) XR chest 2V Stat (units unknown) (unknown) (unknown) (no date) (unknown) (unknown) XRay Report (units unknown) (unknown) (unknown) (no date) (unknown) (unknown) Your viral panel did come back positive for 1 of the common cold viruses it is (units unknown) (unknown) (unknown) (no date) (unknown) (unknown) [Embedded Image Not Available] (units unknown) (unknown) (unknown) (no date) (unknown) (unknown) [SULFA (SULFONAMIDE (units unknown) (unknown) (unknown) (no date) (unknown) (unknown) a type of coronavirus but it is not COVID. This likely explains her symptoms. (units unknown) (unknown) (unknown) (no date) (unknown) (unknown) after finding negative flu and COVID and an EKG that they felt was concerning (units unknown) (unknown) (unknown) (no date) (unknown) (unknown) alcohol intake frequency: 0-2 drinks per day (units unknown) (unknown) (unknown) (no date) (unknown) (unknown) and sent her here for further evaluation. (units unknown) (unknown) (unknown) (no date) (unknown) (unknown) ankles or anywhere else. She states the cough has been bothersome as it is (units unknown) (unknown) (unknown) (no date) (unknown) (unknown) any diagnosis of COPD. Patient stated she did not want to take any steroid (units unknown) (unknown) (unknown) (no date) (unknown) (unknown) appointment. Please return to the Emergency Department for any worsening or (units unknown) (unknown) (unknown) (no date) (unknown) (unknown) be health. This evaluation returned looking fine. Please follow-up closely (units unknown) (unknown) (unknown) (no date) (unknown) (unknown) benzonatate 100 mg capsule 100 mg PO TID PRN cough 7 days #21 08/17/22 (units unknown) (unknown) (unknown) (no date) (unknown) (unknown) benzonatate 100 mg capsule (units unknown) (unknown) (unknown) (no date) (unknown) (unknown) caps (units unknown) (unknown) (unknown) (no date) (unknown) (unknown) changes are (units unknown) (unknown) (unknown) (no date) (unknown) (unknown) changes noted on her x-ray she does have a distant 13 year history but denied (units unknown) (unknown) (unknown) (no date) (unknown) (unknown) cough and shortness of breath recently. This returns unremarkable and given (units unknown) (unknown) (unknown) (no date) (unknown) (unknown) cough. Based on labs and chest x-ray as well as exam, low suspicion for a (units unknown) (unknown) (unknown) (no date) (unknown) (unknown) days repeat troponins are not obtained. Respiratory viral panel is obtained as (units unknown) (unknown) (unknown) (no date) (unknown) (unknown) did a 12 lead that they thought was concerning due to some depression changes (units unknown) (unknown) (unknown) (no date) (unknown) (unknown) discuss possibly doing some steroid medicine given that you have a distant (units unknown) (unknown) (unknown) (no date) (unknown) (unknown) discussed options noting that her chest x-ray suggestive of chronic mild (units unknown) (unknown) (unknown) (no date) (unknown) (unknown) disease, community acquired pneumonia and other (Viral URI, CHF, [place]) (units unknown) (unknown) (unknown) (no date) (unknown) (unknown) distress, well-appearing. 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 We also evaluated you for (units unknown) (unknown) (unknown) (no date) (unknown) (unknown) for possible ST depression. EKG today in the emergency department is (units unknown) (unknown) (unknown) (no date) (unknown) (unknown) friend lan. She endorses chronic intermittent loose stools which have been (units unknown) (unknown) (unknown) (no date) (unknown) (unknown) going on 24 hours a day she is been taking Mucinex and occasionally fisherman's (units unknown) (unknown) (unknown) (no date) (unknown) (unknown) hesitate to seek care if you feel you have new or worsening symptoms. There is (units unknown) (unknown) (unknown) (no date) (unknown) (unknown) icterus. No injection or drainage. (units unknown) (unknown) (unknown) (no date) (unknown) (unknown) is interested in cough medicine. Labs are generally looking good however she (units unknown) (unknown) (unknown) (no date) (unknown) (unknown) joint tenderness. (units unknown) (unknown) (unknown) (no date) (unknown) (unknown) medication, she is interested in receiving cough medicine for her bothersome (units unknown) (unknown) (unknown) (no date) (unknown) (unknown) mild swelling in her feet but has not noticed any weight gain or swelling of her (units unknown) (unknown) (unknown) (no date) (unknown) (unknown) no evidence of an emergent or life threatening illness at this time, but follow (units unknown) (unknown) (unknown) (no date) (unknown) (unknown) other symptoms. Patient does state that she has a friend that recently tested (units unknown) (unknown) (unknown) (no date) (unknown) (unknown) out serious underlying causes of your symptoms. Please call the office for an (units unknown) (unknown) (unknown) (no date) (unknown) (unknown) outpatient follow-up and treatment (units unknown) (unknown) (unknown) (no date) (unknown) (unknown) patient is anxious to know what could be causing her symptoms. Did discuss (units unknown) (unknown) (unknown) (no date) (unknown) (unknown) patient's evaluation today in the emergency department and her plan for (units unknown) (unknown) (unknown) (no date) (unknown) (unknown) penicillin G [PENICILLIN G] Allergy Unknown Verified 08/17/22 13:06 (units unknown) (unknown) (unknown) (no date) (unknown) (unknown) persistent symptoms. Please take medications as directed. (units unknown) (unknown) (unknown) (no date) (unknown) (unknown) pneumonia and do not feel that antibiotics are warranted. (units unknown) (unknown) (unknown) (no date) (unknown) (unknown) positive for COVID but otherwise has not had sick contacts. Pt states she went (units unknown) (unknown) (unknown) (no date) (unknown) (unknown) possible heart problem given you were sent here with concern for this from would (units unknown) (unknown) (unknown) (no date) (unknown) (unknown) presents with concern for fatigue, a cough and feeling somewhat short of breath (units unknown) (unknown) (unknown) (no date) (unknown) (unknown) rales, or rhonchi. (units unknown) (unknown) (unknown) (no date) (unknown) (unknown) seen.? No pleural effusions or pneumothorax.? (units unknown) (unknown) (unknown) (no date) (unknown) (unknown) smoking history and your x-ray today was suggestive of some chronic (units unknown) (unknown) (unknown) (no date) (unknown) (unknown) still has respiratory panel pending. (units unknown) (unknown) (unknown) (no date) (unknown) (unknown) that she is not had any chest pain and her symptoms have been persistent for 3-4 (units unknown) (unknown) (unknown) (no date) (unknown) (unknown) to feel short of breath with exertion, she does feel that she has maybe had some (units unknown) (unknown) (unknown) (no date) (unknown) (unknown) to [facility] and was seen there and had a negative COVID flu test but they (units unknown) (unknown) (unknown) (no date) (unknown) (unknown) tonsillar hypertrophy or exudate. Airway patent. (units unknown) (unknown) (unknown) (no date) (unknown) (unknown) unchanged for her. She states it is somewhat productive with mucus coming up. (units unknown) (unknown) (unknown) (no date) (unknown) (unknown) unremarkable, cardiac workup is performed given the patient's age and report of (units unknown) (unknown) (unknown) (no date) (unknown) (unknown) unremarkable.? (units unknown) (unknown) (unknown) (no date) (unknown) (unknown) up with your doctor in 1-2 days is recommended nonetheless to continue to rule (units unknown) (unknown) (unknown) (no date) (unknown) (unknown) with exertion over the past 2 or 3 days. Patient states it is unusual for her (units unknown) (unknown) (unknown) (no date) (unknown) (unknown) with her possibly treating her with a course of steroids given emphysematous (units unknown) (unknown) (unknown) (no date) (unknown) (unknown) with your primary care provider and monitor for new or worsening symptoms do not (units unknown) (unknown) Result panel 130 (unknown) (no date) (unknown) (unknown) (no value) (units unknown) (unknown) (unknown) (no date) (unknown) (unknown) <Electronically signed by Jeri Adam> (units unknown) (unknown) (unknown) (no date) (unknown) (unknown) [id number] (units unknown) (unknown) (unknown) (no date) (unknown) (unknown) 08/17/22 08/17/22 08/17/22 Range/Units (units unknown) (unknown) (unknown) (no date) (unknown) (unknown) 08/17/22 08/17/22 Range/Units (units unknown) (unknown) (unknown) (no date) (unknown) (unknown) 08/17/22 13:06 (units unknown) (unknown) (unknown) (no date) (unknown) (unknown) 08/17/22 13:16 (units unknown) (unknown) (unknown) (no date) (unknown) (unknown) 08/17/22 13:20 (units unknown) (unknown) (unknown) (no date) (unknown) (unknown) 08/17/22 14:47 (units unknown) (unknown) (unknown) (no date) (unknown) (unknown) 08/17/22 2045 (units unknown) (unknown) (unknown) (no date) (unknown) (unknown) 08/17/22 (units unknown) (unknown) (unknown) (no date) (unknown) (unknown) 100 mg PO TID PRN (Reason: cough) 7 Days Qty: 21 1RF (units unknown) (unknown) (unknown) (no date) (unknown) (unknown) [facility] (units unknown) (unknown) (unknown) (no date) (unknown) (unknown) 13:01 08/17/22 (units unknown) (unknown) (unknown) (no date) (unknown) (unknown) 13:20 13:20 13:20 (units unknown) (unknown) (unknown) (no date) (unknown) (unknown) 13:20 14:47 (units unknown) (unknown) (unknown) (no date) (unknown) (unknown) 1445 (units unknown) (unknown) (unknown) (no date) (unknown) (unknown) 15:19 08/17/22 (units unknown) (unknown) (unknown) (no date) (unknown) (unknown) 16:23 (units unknown) (unknown) (unknown) (no date) (unknown) (unknown) 3-4 days of persistent bothersome wet sounding cough sent by [facility] (units unknown) (unknown) (unknown) (no date) (unknown) (unknown) 82-year-old female with a history of small-bowel obstruction with resection (units unknown) (unknown) (unknown) (no date) (unknown) (unknown) ? (units unknown) (unknown) (unknown) (no date) (unknown) (unknown) ALT (<35) IU/L (units unknown) (unknown) (unknown) (no date) (unknown) (unknown) ALT 40 H (<35) IU/L (units unknown) (unknown) (unknown) (no date) (unknown) (unknown) ANTIBIOTICS)] (units unknown) (unknown) (unknown) (no date) (unknown) (unknown) AST (14-36) IU/L (units unknown) (unknown) (unknown) (no date) (unknown) (unknown) AST 52 H (14-36) IU/L (units unknown) (unknown) (unknown) (no date) (unknown) (unknown) Accession Number: [id number] ?? (units unknown) (unknown) (unknown) (no date) (unknown) (unknown) Acct:[id number] (units unknown) (unknown) (unknown) (no date) (unknown) (unknown) Activity Restrictions/Additi onal Instructions: (units unknown) (unknown) (unknown) (no date) (unknown) (unknown) Adenovirus (PCR) (Not Detect) (units unknown) (unknown) (unknown) (no date) (unknown) (unknown) Adenovirus (PCR) Not detected (Not Detect) (units unknown) (unknown) (unknown) (no date) (unknown) (unknown) Age/Sex: 82 / F (units unknown) (unknown) (unknown) (no date) (unknown) (unknown) Albumin (3.5-5.0) g/dL (units unknown) (unknown) (unknown) (no date) (unknown) (unknown) Albumin 3.8 (3.5-5.0) g/dL (units unknown) (unknown) (unknown) (no date) (unknown) (unknown) Albumin/Globulin Ratio (1.0-2.8) (units unknown) (unknown) (unknown) (no date) (unknown) (unknown) Albumin/Globulin Ratio 1.3 (1.0-2.8) (units unknown) (unknown) (unknown) (no date) (unknown) (unknown) Alkaline Phosphatase (38-126) U/L (units unknown) (unknown) (unknown) (no date) (unknown) (unknown) Alkaline Phosphatase 58 (38-126) U/L (units unknown) (unknown) (unknown) (no date) (unknown) (unknown) Allergies (units unknown) (unknown) (unknown) (no date) (unknown) (unknown) Allergy/AdvReac Type Severity Reaction Status Date / Time (units unknown) (unknown) (unknown) (no date) (unknown) (unknown) [place] [address] (units unknown) (unknown) (unknown) (no date) (unknown) (unknown) Antibiotics) (units unknown) (unknown) (unknown) (no date) (unknown) (unknown) Approved by: Adam Ruby M.D. on 08/17/2022 at 13:17?? (units unknown) (unknown) (unknown) (no date) (unknown) (unknown) Attestation: I personally reviewed and interpreted this ECG as follows: (units unknown) (unknown) (unknown) (no date) (unknown) (unknown) Attestation: I reviewed the patient's lab results. (units unknown) (unknown) (unknown) (no date) (unknown) (unknown) Attestation: I reviewed the patient's medical records. (units unknown) (unknown) (unknown) (no date) (unknown) (unknown) B. pertussis DNA (PCR) (Not Detecte) (units unknown) (unknown) (unknown) (no date) (unknown) (unknown) B. pertussis DNA (PCR) Not detected (Not Detecte) (units unknown) (unknown) (unknown) (no date) (unknown) (unknown) B.parapertussis DNA PCR (Not Detecte) (units unknown) (unknown) (unknown) (no date) (unknown) (unknown) B.parapertussis DNA PCR Not detected (Not Detecte) (units unknown) (unknown) (unknown) (no date) (unknown) (unknown) BACK: Nontender without deformity or crepitance. No flank tenderness. (units unknown) (unknown) (unknown) (no date) (unknown) (unknown) BUN (7-17) mg/dL (units unknown) (unknown) (unknown) (no date) (unknown) (unknown) BUN 16 (7-17) mg/dL (units unknown) (unknown) (unknown) (no date) (unknown) (unknown) BUN/Creatinine Ratio (6-22) (units unknown) (unknown) (unknown) (no date) (unknown) (unknown) BUN/Creatinine Ratio 43.2 H (6-22) (units unknown) (unknown) (unknown) (no date) (unknown) (unknown) Baso # (Auto) (0-100) /uL (units unknown) (unknown) (unknown) (no date) (unknown) (unknown) Baso # (Auto) 0 (0-100) /uL (units unknown) (unknown) (unknown) (no date) (unknown) (unknown) Baso % (Auto) (0-2) % (units unknown) (unknown) (unknown) (no date) (unknown) (unknown) Baso % (Auto) 0.5 (0-2) % (units unknown) (unknown) (unknown) (no date) (unknown) (unknown) Benzonatate (Benzonatate 100 Mg Capsule) 100 mg PO NOW ONE (units unknown) (unknown) (unknown) (no date) (unknown) (unknown) Blood Pressure 163/73 H 08/17/22 13:01 (units unknown) (unknown) (unknown) (no date) (unknown) (unknown) Blood Pressure 163/73 H 175/74 H 180/77 H (units unknown) (unknown) (unknown) (no date) (unknown) (unknown) Bones and chest wall:? No suspicious bony abnormalities.? Soft tissues appear (units unknown) (unknown) (unknown) (no date) (unknown) (unknown) CARDIOVASCULAR: Regular rate and rhythm without murmurs, gallops, or rubs. (units unknown) (unknown) (unknown) (no date) (unknown) (unknown) COMPARISON:? None. (units unknown) (unknown) (unknown) (no date) (unknown) (unknown) Calcium (8.4-10.2) mg/dL (units unknown) (unknown) (unknown) (no date) (unknown) (unknown) Calcium 9.0 (8.4-10.2) mg/dL (units unknown) (unknown) (unknown) (no date) (unknown) (unknown) Carbon Dioxide (22-32) mmol/L (units unknown) (unknown) (unknown) (no date) (unknown) (unknown) Carbon Dioxide 26 (22-32) mmol/L (units unknown) (unknown) (unknown) (no date) (unknown) (unknown) Chest x-ray: (units unknown) (unknown) (unknown) (no date) (unknown) (unknown) Chief Complaint: Shortness of Breath/Dyspnea (units unknown) (unknown) (unknown) (no date) (unknown) (unknown) Chlamy pneumoniae PCR (Not Detect) (units unknown) (unknown) (unknown) (no date) (unknown) (unknown) Chlamy pneumoniae PCR Not detected (Not Detect) (units unknown) (unknown) (unknown) (no date) (unknown) (unknown) Chloride (98-107) mmol/L (units unknown) (unknown) (unknown) (no date) (unknown) (unknown) Chloride 101 (98-107) mmol/L (units unknown) (unknown) (unknown) (no date) (unknown) (unknown) Clinical Impression: (units unknown) (unknown) (unknown) (no date) (unknown) (unknown) Complete Blood Count AUTO DIFF Stat (units unknown) (unknown) (unknown) (no date) (unknown) (unknown) Comprehensive Metabolic Panel Stat (units unknown) (unknown) (unknown) (no date) (unknown) (unknown) Coronavirus 229E (PCR) (Not Detect) (units unknown) (unknown) (unknown) (no date) (unknown) (unknown) Coronavirus 229E (PCR) Not detected (Not Detect) (units unknown) (unknown) (unknown) (no date) (unknown) (unknown) Coronavirus HKU1 (PCR) (Not Detect) (units unknown) (unknown) (unknown) (no date) (unknown) (unknown) Coronavirus HKU1 (PCR) Not detected (Not Detect) (units unknown) (unknown) (unknown) (no date) (unknown) (unknown) Coronavirus NL63 (PCR) (Not Detect) (units unknown) (unknown) (unknown) (no date) (unknown) (unknown) Coronavirus NL63 (PCR) Not detected (Not Detect) (units unknown) (unknown) (unknown) (no date) (unknown) (unknown) Coronavirus OC 43 positive on respiratory panel (units unknown) (unknown) (unknown) (no date) (unknown) (unknown) Coronavirus OC43 (PCR) (Not Detect) (units unknown) (unknown) (unknown) (no date) (unknown) (unknown) Coronavirus OC43 (PCR) Detected H (Not Detect) (units unknown) (unknown) (unknown) (no date) (unknown) (unknown) Coronavirus infection, Cough (units unknown) (unknown) (unknown) (no date) (unknown) (unknown) Course Narrative: (units unknown) (unknown) (unknown) (no date) (unknown) (unknown) Course (units unknown) (unknown) (unknown) (no date) (unknown) (unknown) Creatinine (0.52-1.04) mg/dL (units unknown) (unknown) (unknown) (no date) (unknown) (unknown) Creatinine 0.37 L (0.52-1.04) mg/dL (units unknown) (unknown) (unknown) (no date) (unknown) (unknown) : 1940 Acct:[id number] (units unknown) (unknown) (unknown) (no date) (unknown) (unknown) : 1940 (units unknown) (unknown) (unknown) (no date) (unknown) (unknown) Date of Service: 08/17/22 (units unknown) (unknown) (unknown) (no date) (unknown) (unknown) Departure (units unknown) (unknown) (unknown) (no date) (unknown) (unknown) Dictated by: Adam Ruby M.D. on 08/17/2022 at 13:17 ? ? (units unknown) (unknown) (unknown) (no date) (unknown) (unknown) Did discuss the results of labs thus far and the patient's EKG with her, (units unknown) (unknown) (unknown) (no date) (unknown) (unknown) Differential Diagnosis (units unknown) (unknown) (unknown) (no date) (unknown) (unknown) Differential diagnosis: Likely acute exacerbation of chronic obstructive airways (units unknown) (unknown) (unknown) (no date) (unknown) (unknown) Discharge Plan (units unknown) (unknown) (unknown) (no date) (unknown) (unknown) Discontinued Medications (units unknown) (unknown) (unknown) (no date) (unknown) (unknown) Documented By: KB (units unknown) (unknown) (unknown) (no date) (unknown) (unknown) ECG Data (units unknown) (unknown) (unknown) (no date) (unknown) (unknown) ED Orders (units unknown) (unknown) (unknown) (no date) (unknown) (unknown) EKG-12 Lead Stat (units unknown) (unknown) (unknown) (no date) (unknown) (unknown) ENT: Nose without bleeding, purulent drainage. Throat without erythema, (units unknown) (unknown) (unknown) (no date) (unknown) (unknown) ER Physician: Jeri Adam P.A-C (units unknown) (unknown) (unknown) (no date) (unknown) (unknown) EXTREMITIES: Arthritic changes to MTP joints/valgus deformity. No edema or (units unknown) (unknown) (unknown) (no date) (unknown) (unknown) EYES: Pupils equal round and reactive. Extraocular motions intact. No scleral (units unknown) (unknown) (unknown) (no date) (unknown) (unknown) Emergency Report (units unknown) (unknown) (unknown) (no date) (unknown) (unknown) Entero/Rhino (PCR) (Not Detect) (units unknown) (unknown) (unknown) (no date) (unknown) (unknown) Entero/Rhino (PCR) Not detected (Not Detect) (units unknown) (unknown) (unknown) (no date) (unknown) (unknown) Eos # (Auto) (0-450) /uL (units unknown) (unknown) (unknown) (no date) (unknown) (unknown) Eos # (Auto) 100 (0-450) /uL (units unknown) (unknown) (unknown) (no date) (unknown) (unknown) Eos % (Auto) (2-4) % (units unknown) (unknown) (unknown) (no date) (unknown) (unknown) Eos % (Auto) 1.1 L (2-4) % (units unknown) (unknown) (unknown) (no date) (unknown) (unknown) Estimated GFR > 60 (>60) mL/min (units unknown) (unknown) (unknown) (no date) (unknown) (unknown) Estimated GFR (>60) mL/min (units unknown) (unknown) (unknown) (no date) (unknown) (unknown) Exam Narrative: (units unknown) (unknown) (unknown) (no date) (unknown) (unknown) Exam (units unknown) (unknown) (unknown) (no date) (unknown) (unknown) FINDINGS:? (units unknown) (unknown) (unknown) (no date) (unknown) (unknown) GASTROINTESTINAL: Abdomen soft, non-tender, nondistended. (units unknown) (unknown) (unknown) (no date) (unknown) (unknown) GENERAL: 82 year old patient appears stated age. Well-developed patient, in mild (units unknown) (unknown) (unknown) (no date) (unknown) (unknown) General (units unknown) (unknown) (unknown) (no date) (unknown) (unknown) Globulin (1.7-4.1) g/dL (units unknown) (unknown) (unknown) (no date) (unknown) (unknown) Globulin 2.9 (1.7-4.1) g/dL (units unknown) (unknown) (unknown) (no date) (unknown) (unknown) Glucose (80-110) mg/dL (units unknown) (unknown) (unknown) (no date) (unknown) (unknown) Glucose 115 H (80-110) mg/dL (units unknown) (unknown) (unknown) (no date) (unknown) (unknown) HEAD: Atraumatic. Normocephalic. (units unknown) (unknown) (unknown) (no date) (unknown) (unknown) HEART Score (units unknown) (unknown) (unknown) (no date) (unknown) (unknown) HPI - SOB/Dyspnea (units unknown) (unknown) (unknown) (no date) (unknown) (unknown) HPI Narrative: (units unknown) (unknown) (unknown) (no date) (unknown) (unknown) Hct (36-46) % (units unknown) (unknown) (unknown) (no date) (unknown) (unknown) Hct 36.8 (36-46) % (units unknown) (unknown) (unknown) (no date) (unknown) (unknown) Heart Score Age: > or = 65 years old (units unknown) (unknown) (unknown) (no date) (unknown) (unknown) Heart Score EKG: Normal (units unknown) (unknown) (unknown) (no date) (unknown) (unknown) Heart Score Total: 2 (units unknown) (unknown) (unknown) (no date) (unknown) (unknown) Heart Score history: Slightly Suspicious (units unknown) (unknown) (unknown) (no date) (unknown) (unknown) Heart Score risk factors: No known risk factors (units unknown) (unknown) (unknown) (no date) (unknown) (unknown) Heart Score troponin: < or = to normal limit (units unknown) (unknown) (unknown) (no date) (unknown) (unknown) Heart rate 61, normal sinus rhythm, T-wave inversions in lead III, V1 biphasic (units unknown) (unknown) (unknown) (no date) (unknown) (unknown) Hgb (12.0-16.0) g/dL (units unknown) (unknown) (unknown) (no date) (unknown) (unknown) Hgb 12.1 (12.0-16.0) g/dL (units unknown) (unknown) (unknown) (no date) (unknown) (unknown) History of Present Illness (units unknown) (unknown) (unknown) (no date) (unknown) (unknown) Human Metapneumovir PCR (Not Detect) (units unknown) (unknown) (unknown) (no date) (unknown) (unknown) Human Metapneumovir PCR Not detected (Not Detect) (units unknown) (unknown) (unknown) (no date) (unknown) (unknown) I agree with radiologist's interpretation of the imaging (units unknown) (unknown) (unknown) (no date) (unknown) (unknown) I did prescribed some cough medicine for you which I hope is helpful. We did (units unknown) (unknown) (unknown) (no date) (unknown) (unknown) IMPRESSION:? COPD.? No acute cardiopulmonary pathology. (units unknown) (unknown) (unknown) (no date) (unknown) (unknown) INDICATIONS:? SOB cough (units unknown) (unknown) (unknown) (no date) (unknown) (unknown) INR (0.9-1.3) (units unknown) (unknown) (unknown) (no date) (unknown) (unknown) INR 1.1 (0.9-1.3) (units unknown) (unknown) (unknown) (no date) (unknown) (unknown) Imaging Data (units unknown) (unknown) (unknown) (no date) (unknown) (unknown) Influenza Type A (PCR) (Not Detect) (units unknown) (unknown) (unknown) (no date) (unknown) (unknown) Influenza Type A (PCR) Not detected (Not Detect) (units unknown) (unknown) (unknown) (no date) (unknown) (unknown) Influenza Type B (PCR) (Not Detect) (units unknown) (unknown) (unknown) (no date) (unknown) (unknown) Influenza Type B (PCR) Not detected (Not Detect) (units unknown) (unknown) (unknown) (no date) (unknown) (unknown) Initial Vital Signs (units unknown) (unknown) (unknown) (no date) (unknown) (unknown) Initial Vital Signs: (units unknown) (unknown) (unknown) (no date) (unknown) (unknown) Interpretation: (units unknown) (unknown) (unknown) (no date) (unknown) (unknown) [address] [address] (units unknown) (unknown) (unknown) (no date) (unknown) (unknown) [facility] (units unknown) (unknown) (unknown) (no date) (unknown) (unknown) Lab Data (units unknown) (unknown) (unknown) (no date) (unknown) (unknown) Lab Results (units unknown) (unknown) (unknown) (no date) (unknown) (unknown) Lab results narrative: (units unknown) (unknown) (unknown) (no date) (unknown) (unknown) Labs: (units unknown) (unknown) (unknown) (no date) (unknown) (unknown) Lactate (0.7-2.1) mmol/L (units unknown) (unknown) (unknown) (no date) (unknown) (unknown) Lactate (Lactic Acid) Stat (units unknown) (unknown) (unknown) (no date) (unknown) (unknown) Lactate 1.1 (0.7-2.1) mmol/L (units unknown) (unknown) (unknown) (no date) (unknown) (unknown) Last Admin: 08/17/22 16:20 Dose: 100 mg (units unknown) (unknown) (unknown) (no date) (unknown) (unknown) Loc: ED (units unknown) (unknown) (unknown) (no date) (unknown) (unknown) Lungs and pleura:? Lungs are clear.? Hyperinflation and chronic emphysematous (units unknown) (unknown) (unknown) (no date) (unknown) (unknown) Lymph # (Auto) (6138-4426) /uL (units unknown) (unknown) (unknown) (no date) (unknown) (unknown) Lymph # (Auto) 700 L (1311-6431) /uL (units unknown) (unknown) (unknown) (no date) (unknown) (unknown) Lymph % (Auto) (25-40) % (units unknown) (unknown) (unknown) (no date) (unknown) (unknown) Lymph % (Auto) 8.6 L (25-40) % (units unknown) (unknown) (unknown) (no date) (unknown) (unknown) M. pneumoniae (PCR) (Not Detect) (units unknown) (unknown) (unknown) (no date) (unknown) (unknown) M. pneumoniae (PCR) Not detected (Not Detect) (units unknown) (unknown) (unknown) (no date) (unknown) (unknown) MCH (26-34) PG (units unknown) (unknown) (unknown) (no date) (unknown) (unknown) MCH 31.1 (26-34) PG (units unknown) (unknown) (unknown) (no date) (unknown) (unknown) MCHC (30-36) % (units unknown) (unknown) (unknown) (no date) (unknown) (unknown) MCHC 32.8 (30-36) % (units unknown) (unknown) (unknown) (no date) (unknown) (unknown) MCV (80-100) fL (units unknown) (unknown) (unknown) (no date) (unknown) (unknown) MCV 94.7 (80-100) fL (units unknown) (unknown) (unknown) (no date) (unknown) (unknown) MDM - SOB/Dyspnea (units unknown) (unknown) (unknown) (no date) (unknown) (unknown) MDM Narrative (units unknown) (unknown) (unknown) (no date) (unknown) (unknown) MR#: [id number] (units unknown) (unknown) (unknown) (no date) (unknown) (unknown) Measure peak expiratory flow ONCE (units unknown) (unknown) (unknown) (no date) (unknown) (unknown) Mediastinum:? Mediastinal contours are normal.? Heart size is normal.? (units unknown) (unknown) (unknown) (no date) (unknown) (unknown) Medical Records (units unknown) (unknown) (unknown) (no date) (unknown) (unknown) Medical decision making narrative: (units unknown) (unknown) (unknown) (no date) (unknown) (unknown) Medication Instructions Recorded (units unknown) (unknown) (unknown) (no date) (unknown) (unknown) Mode of arrival: Ambulatory (units unknown) (unknown) (unknown) (no date) (unknown) (unknown) [place] # (Auto) (0-900) /uL (units unknown) (unknown) (unknown) (no date) (unknown) (unknown) [place] # (Auto) 500 (0-900) /uL (units unknown) (unknown) (unknown) (no date) (unknown) (unknown) [place] % (Auto) (3-14) % (units unknown) (unknown) (unknown) (no date) (unknown) (unknown) [place] % (Auto) 5.9 (3-14) % (units unknown) (unknown) (unknown) (no date) (unknown) (unknown) My Impression: (units unknown) (unknown) (unknown) (no date) (unknown) (unknown) NECK: Trachea midline. Non tender (units unknown) (unknown) (unknown) (no date) (unknown) (unknown) NEURO: AOx3. (units unknown) (unknown) (unknown) (no date) (unknown) (unknown) NT-Pro-B Natriuret Pep (<450) pg/mL (units unknown) (unknown) (unknown) (no date) (unknown) (unknown) NT-Pro-B Natriuret Pep 359 (<450) pg/mL (units unknown) (unknown) (unknown) (no date) (unknown) (unknown) NT-proBNP (BNP-Adult 18+) Stat (units unknown) (unknown) (unknown) (no date) (unknown) (unknown) Narrative (units unknown) (unknown) (unknown) (no date) (unknown) (unknown) Narrative: (units unknown) (unknown) (unknown) (no date) (unknown) (unknown) Neut # (Auto) (1907-5263) /uL (units unknown) (unknown) (unknown) (no date) (unknown) (unknown) Neut # (Auto) 6900 (2283-0203) /uL (units unknown) (unknown) (unknown) (no date) (unknown) (unknown) Neut % (Auto) (50-75) % (units unknown) (unknown) (unknown) (no date) (unknown) (unknown) Neut % (Auto) 83.9 H (50-75) % (units unknown) (unknown) (unknown) (no date) (unknown) (unknown) New (units unknown) (unknown) (unknown) (no date) (unknown) (unknown) Ordered: (units unknown) (unknown) (unknown) (no date) (unknown) (unknown) Ordering Provider: Jeri Adam P.A-C (units unknown) (unknown) (unknown) (no date) (unknown) (unknown) Orders (units unknown) (unknown) (unknown) (no date) (unknown) (unknown) Oxygen Delivery Method Room Air 08/17/22 13:01 (units unknown) (unknown) (unknown) (no date) (unknown) (unknown) Oxygen Delivery Method Room Air Room Air Room Air (units unknown) (unknown) (unknown) (no date) (unknown) (unknown) PROCEDURE:? XR CHEST 2V (units unknown) (unknown) (unknown) (no date) (unknown) (unknown) PT (10.1-12.7) SECONDS (units unknown) (unknown) (unknown) (no date) (unknown) (unknown) PT 13.1 H (10.1-12.7) SECONDS (units unknown) (unknown) (unknown) (no date) (unknown) (unknown) Parainfluenza 1 (PCR) (Not Detect) (units unknown) (unknown) (unknown) (no date) (unknown) (unknown) Parainfluenza 1 (PCR) Not detected (Not Detect) (units unknown) (unknown) (unknown) (no date) (unknown) (unknown) Parainfluenza 2 (PCR) (Not Detect) (units unknown) (unknown) (unknown) (no date) (unknown) (unknown) Parainfluenza 2 (PCR) Not detected (Not Detect) (units unknown) (unknown) (unknown) (no date) (unknown) (unknown) Parainfluenza 3 (PCR) (Not Detect) (units unknown) (unknown) (unknown) (no date) (unknown) (unknown) Parainfluenza 3 (PCR) Not detected (Not Detect) (units unknown) (unknown) (unknown) (no date) (unknown) (unknown) Parainfluenza 4 (PCR) (Not Detect) (units unknown) (unknown) (unknown) (no date) (unknown) (unknown) Parainfluenza 4 (PCR) Not detected (Not Detect) (units unknown) (unknown) (unknown) (no date) (unknown) (unknown) Patient Disposition: Home (units unknown) (unknown) (unknown) (no date) (unknown) (unknown) Patient History (units unknown) (unknown) (unknown) (no date) (unknown) (unknown) Patient: Estefanía Mcneil MR#: [id number] (units unknown) (unknown) (unknown) (no date) (unknown) (unknown) Patient: Estefanía Mcneil (units unknown) (unknown) (unknown) (no date) (unknown) (unknown) Plt Count (150-400) X103/uL (units unknown) (unknown) (unknown) (no date) (unknown) (unknown) Plt Count 179 (150-400) X103/uL (units unknown) (unknown) (unknown) (no date) (unknown) (unknown) Potassium (3.4-5.1) mmol/L (units unknown) (unknown) (unknown) (no date) (unknown) (unknown) Potassium 3.9 (3.4-5.1) mmol/L (units unknown) (unknown) (unknown) (no date) (unknown) (unknown) Prescriptions: (units unknown) (unknown) (unknown) (no date) (unknown) (unknown) Previous Rx's (units unknown) (unknown) (unknown) (no date) (unknown) (unknown) Procedure: XR chest 2V (units unknown) (unknown) (unknown) (no date) (unknown) (unknown) Prothrombin Time INR Stat (units unknown) (unknown) (unknown) (no date) (unknown) (unknown) Pulse Oximetry 95 08/17/22 13:01 (units unknown) (unknown) (unknown) (no date) (unknown) (unknown) Pulse Oximetry 95 96 98 (units unknown) (unknown) (unknown) (no date) (unknown) (unknown) Pulse Rate 64 08/17/22 13:01 (units unknown) (unknown) (unknown) (no date) (unknown) (unknown) Pulse Rate 64 85 67 (units unknown) (unknown) (unknown) (no date) (unknown) (unknown) RBC (4.0-5.2) X106/uL (units unknown) (unknown) (unknown) (no date) (unknown) (unknown) RBC 3.89 L (4.0-5.2) X106/uL (units unknown) (unknown) (unknown) (no date) (unknown) (unknown) RDW (11.6-14.8) % (units unknown) (unknown) (unknown) (no date) (unknown) (unknown) RDW 15.9 H (11.6-14.8) % (units unknown) (unknown) (unknown) (no date) (unknown) (unknown) RESPIRATORY: Clear to auscultation. Breath sounds equal bilaterally. No wheezes, (units unknown) (unknown) (unknown) (no date) (unknown) (unknown) RSV (PCR) (Not Detect) (units unknown) (unknown) (unknown) (no date) (unknown) (unknown) RSV (PCR) Not detected (Not Detect) (units unknown) (unknown) (unknown) (no date) (unknown) (unknown) RT Consult Eval and Treat NOW (units unknown) (unknown) (unknown) (no date) (unknown) (unknown) Radiologist's Impression: (units unknown) (unknown) (unknown) (no date) (unknown) (unknown) Related Data (units unknown) (unknown) (unknown) (no date) (unknown) (unknown) Respiratory Panel (Film Array) Stat (units unknown) (unknown) (unknown) (no date) (unknown) (unknown) Respiratory Rate 18 08/17/22 13:01 (units unknown) (unknown) (unknown) (no date) (unknown) (unknown) Respiratory Rate 18 18 18 (units unknown) (unknown) (unknown) (no date) (unknown) (unknown) Review of Systems (units unknown) (unknown) (unknown) (no date) (unknown) (unknown) SARS-CoV-2 (PCR) (Not Detecte) (units unknown) (unknown) (unknown) (no date) (unknown) (unknown) SARS-CoV-2 (PCR) Not detected (Not Detecte) (units unknown) (unknown) (unknown) (no date) (unknown) (unknown) SKIN: No rash or erythema of visible areas (units unknown) (unknown) (unknown) (no date) (unknown) (unknown) Scores (units unknown) (unknown) (unknown) (no date) (unknown) (unknown) Shared decision making:: Shared decision-making was used in determining the (units unknown) (unknown) (unknown) (no date) (unknown) (unknown) She denies fevers, chills, loss of appetite, abdominal pain, chest pain or any (units unknown) (unknown) (unknown) (no date) (unknown) (unknown) Signed By: (units unknown) (unknown) (unknown) (no date) (unknown) (unknown) Signed (units unknown) (unknown) (unknown) (no date) (unknown) (unknown) Smoking Status: Never smoker (units unknown) (unknown) (unknown) (no date) (unknown) (unknown) Social History (units unknown) (unknown) (unknown) (no date) (unknown) (unknown) Sodium (137-145) mmol/L (units unknown) (unknown) (unknown) (no date) (unknown) (unknown) Sodium 133 L (137-145) mmol/L (units unknown) (unknown) (unknown) (no date) (unknown) (unknown) Source: patient (units unknown) (unknown) (unknown) (no date) (unknown) (unknown) Stand Alone Forms: Patient Portal/API (units unknown) (unknown) (unknown) (no date) (unknown) (unknown) Stated Complaint: sent by jacky berg SOB (units unknown) (unknown) (unknown) (no date) (unknown) (unknown) Stop: 08/17/22 16:10 (units unknown) (unknown) (unknown) (no date) (unknown) (unknown) Substance Use Type: does not use (units unknown) (unknown) (unknown) (no date) (unknown) (unknown) Sulfa (Sulfonamide Allergy Unknown Verified 08/17/22 13:06 (units unknown) (unknown) (unknown) (no date) (unknown) (unknown) Surgical changes and devices:? None.? (units unknown) (unknown) (unknown) (no date) (unknown) (unknown) T-wave lead V3 otherwise unremarkable EKG with a no ectopy or ST changes noted (units unknown) (unknown) (unknown) (no date) (unknown) (unknown) TECHNIQUE:? 2 views of the chest were acquired.? (units unknown) (unknown) (unknown) (no date) (unknown) (unknown) Temperature 97.9 F 08/17/22 13:01 (units unknown) (unknown) (unknown) (no date) (unknown) (unknown) Temperature 97.9 F (units unknown) (unknown) (unknown) (no date) (unknown) (unknown) Tetracyclines [TETRACYCLINES] Allergy Unknown Verified 08/17/22 13:06 (units unknown) (unknown) (unknown) (no date) (unknown) (unknown) Thank you for letting us be part of your care today in the emergency department. (units unknown) (unknown) (unknown) (no date) (unknown) (unknown) This is a rather well-appearing 82-year-old female who presents with concern for (units unknown) (unknown) (unknown) (no date) (unknown) (unknown) Time Seen by Provider: 08/17/22 13:19 (units unknown) (unknown) (unknown) (no date) (unknown) (unknown) Total Bilirubin (0.2-1.3) mg/dL (units unknown) (unknown) (unknown) (no date) (unknown) (unknown) Total Bilirubin 0.5 (0.2-1.3) mg/dL (units unknown) (unknown) (unknown) (no date) (unknown) (unknown) Total Protein (6.3-8.2) g/dL (units unknown) (unknown) (unknown) (no date) (unknown) (unknown) Total Protein 6.7 (6.3-8.2) g/dL (units unknown) (unknown) (unknown) (no date) (unknown) (unknown) Treatment and disposition (units unknown) (unknown) (unknown) (no date) (unknown) (unknown) Troponin I < 0.012 (0.01-0.034) ng/mL (units unknown) (unknown) (unknown) (no date) (unknown) (unknown) Troponin I (0.01-0.034) ng/mL (units unknown) (unknown) (unknown) (no date) (unknown) (unknown) Troponin I Stat (units unknown) (unknown) (unknown) (no date) (unknown) (unknown) Unremarkable except as noted in the HPI (units unknown) (unknown) (unknown) (no date) (unknown) (unknown) Vital Signs - 8 hr (units unknown) (unknown) (unknown) (no date) (unknown) (unknown) Vital Signs (units unknown) (unknown) (unknown) (no date) (unknown) (unknown) Vital signs: (units unknown) (unknown) (unknown) (no date) (unknown) (unknown) WBC (4.5-11.0) X103/uL (units unknown) (unknown) (unknown) (no date) (unknown) (unknown) WBC 8.3 (4.5-11.0) X103/uL (units unknown) (unknown) (unknown) (no date) (unknown) (unknown) XR chest 2V Stat (units unknown) (unknown) (unknown) (no date) (unknown) (unknown) XRay Report (units unknown) (unknown) (unknown) (no date) (unknown) (unknown) Your viral panel did come back positive for 1 of the common cold viruses it is (units unknown) (unknown) (unknown) (no date) (unknown) (unknown) [Embedded Image Not Available] (units unknown) (unknown) (unknown) (no date) (unknown) (unknown) [SULFA (SULFONAMIDE (units unknown) (unknown) (unknown) (no date) (unknown) (unknown) a distant 13 year history of smoking but denied any diagnosis of COPD. Patient (units unknown) (unknown) (unknown) (no date) (unknown) (unknown) a type of coronavirus but it is not COVID. This likely explains her symptoms. (units unknown) (unknown) (unknown) (no date) (unknown) (unknown) after finding negative flu and COVID and an EKG that they felt was concerning (units unknown) (unknown) (unknown) (no date) (unknown) (unknown) age and report of cough and shortness of breath recently. This returns (units unknown) (unknown) (unknown) (no date) (unknown) (unknown) alcohol intake frequency: 0-2 drinks per day (units unknown) (unknown) (unknown) (no date) (unknown) (unknown) and sent her here for further evaluation. (units unknown) (unknown) (unknown) (no date) (unknown) (unknown) ankles or anywhere else. She states the cough has been bothersome as it is (units unknown) (unknown) (unknown) (no date) (unknown) (unknown) antibiotics are warranted. Patient's respiratory panel did come back positive (units unknown) (unknown) (unknown) (no date) (unknown) (unknown) appointment. Please return to the Emergency Department for any worsening or (units unknown) (unknown) (unknown) (no date) (unknown) (unknown) be health. This evaluation returned looking fine. Please follow-up closely (units unknown) (unknown) (unknown) (no date) (unknown) (unknown) been persistent for 3-4 days repeat troponins are not obtained. Respiratory (units unknown) (unknown) (unknown) (no date) (unknown) (unknown) benzonatate 100 mg capsule 100 mg PO TID PRN cough 7 days #21 08/17/22 (units unknown) (unknown) (unknown) (no date) (unknown) (unknown) benzonatate 100 mg capsule (units unknown) (unknown) (unknown) (no date) (unknown) (unknown) caps (units unknown) (unknown) (unknown) (no date) (unknown) (unknown) changes are (units unknown) (unknown) (unknown) (no date) (unknown) (unknown) course of steroids given emphysematous changes noted on her x-ray she does have (units unknown) (unknown) (unknown) (no date) (unknown) (unknown) did a 12 lead that they thought was concerning due to some depression changes (units unknown) (unknown) (unknown) (no date) (unknown) (unknown) discuss possibly doing some steroid medicine given that you have a distant (units unknown) (unknown) (unknown) (no date) (unknown) (unknown) discussed options noting that her chest x-ray suggestive of chronic mild (units unknown) (unknown) (unknown) (no date) (unknown) (unknown) disease, community acquired pneumonia and other (Viral URI, CHF, [place]) (units unknown) (unknown) (unknown) (no date) (unknown) (unknown) distress, well-appearing. 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 We also evaluated you for (units unknown) (unknown) (unknown) (no date) (unknown) (unknown) for coronavirus OC 43, which likely explains her symptoms. Patient is (units unknown) (unknown) (unknown) (no date) (unknown) (unknown) for possible ST depression. EKG today in the emergency department is (units unknown) (unknown) (unknown) (no date) (unknown) (unknown) friend lan. She endorses chronic intermittent loose stools which have been (units unknown) (unknown) (unknown) (no date) (unknown) (unknown) going on 24 hours a day she is been taking Mucinex and occasionally fisherman's (units unknown) (unknown) (unknown) (no date) (unknown) (unknown) hesitate to seek care if you feel you have new or worsening symptoms. There is (units unknown) (unknown) (unknown) (no date) (unknown) (unknown) icterus. No injection or drainage. (units unknown) (unknown) (unknown) (no date) (unknown) (unknown) is interested in cough medicine. Labs are generally looking good however she (units unknown) (unknown) (unknown) (no date) (unknown) (unknown) joint tenderness. (units unknown) (unknown) (unknown) (no date) (unknown) (unknown) mild swelling in her feet but has not noticed any weight gain or swelling of her (units unknown) (unknown) (unknown) (no date) (unknown) (unknown) no evidence of an emergent or life threatening illness at this time, but follow (units unknown) (unknown) (unknown) (no date) (unknown) (unknown) other symptoms. Patient does state that she has a friend that recently tested (units unknown) (unknown) (unknown) (no date) (unknown) (unknown) out serious underlying causes of your symptoms. Please call the office for an (units unknown) (unknown) (unknown) (no date) (unknown) (unknown) outpatient follow-up and treatment (units unknown) (unknown) (unknown) (no date) (unknown) (unknown) patient's evaluation today in the emergency department and her plan for (units unknown) (unknown) (unknown) (no date) (unknown) (unknown) penicillin G [PENICILLIN G] Allergy Unknown Verified 08/17/22 13:06 (units unknown) (unknown) (unknown) (no date) (unknown) (unknown) persistent symptoms. Please take medications as directed. (units unknown) (unknown) (unknown) (no date) (unknown) (unknown) positive for COVID but otherwise has not had sick contacts. Pt states she went (units unknown) (unknown) (unknown) (no date) (unknown) (unknown) possible heart problem given you were sent here with concern for this from would (units unknown) (unknown) (unknown) (no date) (unknown) (unknown) precautions provided, follow-up plan discussed, all questions answered. (units unknown) (unknown) (unknown) (no date) (unknown) (unknown) prescribed benzonatate advised to follow up closely with primary care, return (units unknown) (unknown) (unknown) (no date) (unknown) (unknown) presents with concern for fatigue, a cough and feeling somewhat short of breath (units unknown) (unknown) (unknown) (no date) (unknown) (unknown) rales, or rhonchi. (units unknown) (unknown) (unknown) (no date) (unknown) (unknown) ray as well as exam, low suspicion for a pneumonia and do not feel that (units unknown) (unknown) (unknown) (no date) (unknown) (unknown) receiving cough medicine for her bothersome cough. Based on labs and chest x (units unknown) (unknown) (unknown) (no date) (unknown) (unknown) seen.? No pleural effusions or pneumothorax.? (units unknown) (unknown) (unknown) (no date) (unknown) (unknown) smoking history and your x-ray today was suggestive of some chronic (units unknown) (unknown) (unknown) (no date) (unknown) (unknown) stated she did not want to take any steroid medication, she is interested in (units unknown) (unknown) (unknown) (no date) (unknown) (unknown) still has respiratory panel pending. (units unknown) (unknown) (unknown) (no date) (unknown) (unknown) to feel short of breath with exertion, she does feel that she has maybe had some (units unknown) (unknown) (unknown) (no date) (unknown) (unknown) to [facility] and was seen there and had a negative COVID flu test but they (units unknown) (unknown) (unknown) (no date) (unknown) (unknown) tonsillar hypertrophy or exudate. Airway patent. (units unknown) (unknown) (unknown) (no date) (unknown) (unknown) unchanged for her. She states it is somewhat productive with mucus coming up. (units unknown) (unknown) (unknown) (no date) (unknown) (unknown) unremarkable and given that she is not had any chest pain and her symptoms have (units unknown) (unknown) (unknown) (no date) (unknown) (unknown) unremarkable, cardiac workup labs including BNP is performed given the patient's (units unknown) (unknown) (unknown) (no date) (unknown) (unknown) unremarkable.? (units unknown) (unknown) (unknown) (no date) (unknown) (unknown) up with your doctor in 1-2 days is recommended nonetheless to continue to rule (units unknown) (unknown) (unknown) (no date) (unknown) (unknown) viral panel is obtained. Did discuss with her possibly treating her with a (units unknown) (unknown) (unknown) (no date) (unknown) (unknown) with exertion over the past 2 or 3 days. Patient states it is unusual for her (units unknown) (unknown) (unknown) (no date) (unknown) (unknown) with your primary care provider and monitor for new or worsening symptoms do not (units unknown) (unknown) Result panel 131 (unknown) (no date) (unknown) (unknown) (no value) (units unknown) (unknown) (unknown) (no date) (unknown) (unknown) <Electronically signed by Jeri Adam> (units unknown) (unknown) (unknown) (no date) (unknown) (unknown) <Electronically signed by Patrice Ross D.O.> (units unknown) (unknown) (unknown) (no date) (unknown) (unknown) <Electronically signed by Patrice Ross D.O.> (units unknown) (unknown) (unknown) (no date) (unknown) (unknown) <Jeri Adam PA-C - Last Filed: 08/17/22 20:45> (units unknown) (unknown) (unknown) (no date) (unknown) (unknown) <Patrice Ross DO - Last Filed: 08/21/22 19:40> (units unknown) (unknown) (unknown) (no date) (unknown) (unknown) <cosignmayank> (units unknown) (unknown) (unknown) (no date) (unknown) (unknown) [id number] (units unknown) (unknown) (unknown) (no date) (unknown) (unknown) 08/17/22 08/17/22 08/17/22 Range/Units (units unknown) (unknown) (unknown) (no date) (unknown) (unknown) 08/17/22 08/17/22 Range/Units (units unknown) (unknown) (unknown) (no date) (unknown) (unknown) 08/17/22 13:20 (units unknown) (unknown) (unknown) (no date) (unknown) (unknown) 08/17/22 2045 (units unknown) (unknown) (unknown) (no date) (unknown) (unknown) 08/17/22 (units unknown) (unknown) (unknown) (no date) (unknown) (unknown) 08/21/22 1940 (units unknown) (unknown) (unknown) (no date) (unknown) (unknown) 100 mg PO TID PRN (Reason: cough) 7 Days Qty: 21 1RF (units unknown) (unknown) (unknown) (no date) (unknown) (unknown) [address] (units unknown) (unknown) (unknown) (no date) (unknown) (unknown) 13:01 08/17/22 (units unknown) (unknown) (unknown) (no date) (unknown) (unknown) 13:20 13:20 13:20 (units unknown) (unknown) (unknown) (no date) (unknown) (unknown) 13:20 14:47 (units unknown) (unknown) (unknown) (no date) (unknown) (unknown) 1445 (units unknown) (unknown) (unknown) (no date) (unknown) (unknown) 15:19 08/17/22 (units unknown) (unknown) (unknown) (no date) (unknown) (unknown) 16:23 (units unknown) (unknown) (unknown) (no date) (unknown) (unknown) 3-4 days of persistent bothersome wet sounding cough sent by [employer] (units unknown) (unknown) (unknown) (no date) (unknown) (unknown) 82-year-old female with a history of small-bowel obstruction with resection (units unknown) (unknown) (unknown) (no date) (unknown) (unknown) ? (units unknown) (unknown) (unknown) (no date) (unknown) (unknown) ALT (<35) IU/L (units unknown) (unknown) (unknown) (no date) (unknown) (unknown) ALT 40 H (<35) IU/L (units unknown) (unknown) (unknown) (no date) (unknown) (unknown) ANTIBIOTICS)] (units unknown) (unknown) (unknown) (no date) (unknown) (unknown) AST (14-36) IU/L (units unknown) (unknown) (unknown) (no date) (unknown) (unknown) AST 52 H (14-36) IU/L (units unknown) (unknown) (unknown) (no date) (unknown) (unknown) Accession Number: [id number] ?? (units unknown) (unknown) (unknown) (no date) (unknown) (unknown) Acct:[id number] (units unknown) (unknown) (unknown) (no date) (unknown) (unknown) Activity Restrictions/Additi onal Instructions: (units unknown) (unknown) (unknown) (no date) (unknown) (unknown) Adenovirus (PCR) (Not Detect) (units unknown) (unknown) (unknown) (no date) (unknown) (unknown) Adenovirus (PCR) Not detected (Not Detect) (units unknown) (unknown) (unknown) (no date) (unknown) (unknown) Age/Sex: 82 / F (units unknown) (unknown) (unknown) (no date) (unknown) (unknown) Albumin (3.5-5.0) g/dL (units unknown) (unknown) (unknown) (no date) (unknown) (unknown) Albumin 3.8 (3.5-5.0) g/dL (units unknown) (unknown) (unknown) (no date) (unknown) (unknown) Albumin/Globulin Ratio (1.0-2.8) (units unknown) (unknown) (unknown) (no date) (unknown) (unknown) Albumin/Globulin Ratio 1.3 (1.0-2.8) (units unknown) (unknown) (unknown) (no date) (unknown) (unknown) Alkaline Phosphatase (38-126) U/L (units unknown) (unknown) (unknown) (no date) (unknown) (unknown) Alkaline Phosphatase 58 (38-126) U/L (units unknown) (unknown) (unknown) (no date) (unknown) (unknown) Allergies (units unknown) (unknown) (unknown) (no date) (unknown) (unknown) Allergy/AdvReac Type Severity Reaction Status Date / Time (units unknown) (unknown) (unknown) (no date) (unknown) (unknown) DWIGHT Taylor [address] (units unknown) (unknown) (unknown) (no date) (unknown) (unknown) Antibiotics) (units unknown) (unknown) (unknown) (no date) (unknown) (unknown) Approved by: Adam Ruby M.D. on 08/17/2022 at 13:17?? (units unknown) (unknown) (unknown) (no date) (unknown) (unknown) Attestation: I personally reviewed and interpreted this ECG as follows: (units unknown) (unknown) (unknown) (no date) (unknown) (unknown) Attestation: I reviewed the patient's lab results. (units unknown) (unknown) (unknown) (no date) (unknown) (unknown) Attestation: I reviewed the patient's medical records. (units unknown) (unknown) (unknown) (no date) (unknown) (unknown) B. pertussis DNA (PCR) (Not Detecte) (units unknown) (unknown) (unknown) (no date) (unknown) (unknown) B. pertussis DNA (PCR) Not detected (Not Detecte) (units unknown) (unknown) (unknown) (no date) (unknown) (unknown) B.parapertussis DNA PCR (Not Detecte) (units unknown) (unknown) (unknown) (no date) (unknown) (unknown) B.parapertussis DNA PCR Not detected (Not Detecte) (units unknown) (unknown) (unknown) (no date) (unknown) (unknown) BACK: Nontender without deformity or crepitance. No flank tenderness. (units unknown) (unknown) (unknown) (no date) (unknown) (unknown) BUN (7-17) mg/dL (units unknown) (unknown) (unknown) (no date) (unknown) (unknown) BUN 16 (7-17) mg/dL (units unknown) (unknown) (unknown) (no date) (unknown) (unknown) BUN/Creatinine Ratio (6-22) (units unknown) (unknown) (unknown) (no date) (unknown) (unknown) BUN/Creatinine Ratio 43.2 H (6-22) (units unknown) (unknown) (unknown) (no date) (unknown) (unknown) Baso # (Auto) (0-100) /uL (units unknown) (unknown) (unknown) (no date) (unknown) (unknown) Baso # (Auto) 0 (0-100) /uL (units unknown) (unknown) (unknown) (no date) (unknown) (unknown) Baso % (Auto) (0-2) % (units unknown) (unknown) (unknown) (no date) (unknown) (unknown) Baso % (Auto) 0.5 (0-2) % (units unknown) (unknown) (unknown) (no date) (unknown) (unknown) Benzonatate (Benzonatate 100 Mg Capsule) 100 mg PO NOW ONE (units unknown) (unknown) (unknown) (no date) (unknown) (unknown) Blood Pressure 163/73 H 08/17/22 13:01 (units unknown) (unknown) (unknown) (no date) (unknown) (unknown) Blood Pressure 163/73 H 175/74 H 180/77 H (units unknown) (unknown) (unknown) (no date) (unknown) (unknown) Bones and chest wall:? No suspicious bony abnormalities.? Soft tissues appear (units unknown) (unknown) (unknown) (no date) (unknown) (unknown) CARDIOVASCULAR: Regular rate and rhythm without murmurs, gallops, or rubs. (units unknown) (unknown) (unknown) (no date) (unknown) (unknown) COMPARISON:? None. (units unknown) (unknown) (unknown) (no date) (unknown) (unknown) Calcium (8.4-10.2) mg/dL (units unknown) (unknown) (unknown) (no date) (unknown) (unknown) Calcium 9.0 (8.4-10.2) mg/dL (units unknown) (unknown) (unknown) (no date) (unknown) (unknown) Carbon Dioxide (22-32) mmol/L (units unknown) (unknown) (unknown) (no date) (unknown) (unknown) Carbon Dioxide 26 (22-32) mmol/L (units unknown) (unknown) (unknown) (no date) (unknown) (unknown) Chest x-ray: (units unknown) (unknown) (unknown) (no date) (unknown) (unknown) Chief Complaint: Shortness of Breath/Dyspnea (units unknown) (unknown) (unknown) (no date) (unknown) (unknown) Chlamy pneumoniae PCR (Not Detect) (units unknown) (unknown) (unknown) (no date) (unknown) (unknown) Chlamy pneumoniae PCR Not detected (Not Detect) (units unknown) (unknown) (unknown) (no date) (unknown) (unknown) Chloride (98-107) mmol/L (units unknown) (unknown) (unknown) (no date) (unknown) (unknown) Chloride 101 (98-107) mmol/L (units unknown) (unknown) (unknown) (no date) (unknown) (unknown) Clinical Impression: (units unknown) (unknown) (unknown) (no date) (unknown) (unknown) Coronavirus 229E (PCR) (Not Detect) (units unknown) (unknown) (unknown) (no date) (unknown) (unknown) Coronavirus 229E (PCR) Not detected (Not Detect) (units unknown) (unknown) (unknown) (no date) (unknown) (unknown) Coronavirus HKU1 (PCR) (Not Detect) (units unknown) (unknown) (unknown) (no date) (unknown) (unknown) Coronavirus HKU1 (PCR) Not detected (Not Detect) (units unknown) (unknown) (unknown) (no date) (unknown) (unknown) Coronavirus NL63 (PCR) (Not Detect) (units unknown) (unknown) (unknown) (no date) (unknown) (unknown) Coronavirus NL63 (PCR) Not detected (Not Detect) (units unknown) (unknown) (unknown) (no date) (unknown) (unknown) Coronavirus OC 43 positive on respiratory panel (units unknown) (unknown) (unknown) (no date) (unknown) (unknown) Coronavirus OC43 (PCR) (Not Detect) (units unknown) (unknown) (unknown) (no date) (unknown) (unknown) Coronavirus OC43 (PCR) Detected H (Not Detect) (units unknown) (unknown) (unknown) (no date) (unknown) (unknown) Coronavirus infection, Cough (units unknown) (unknown) (unknown) (no date) (unknown) (unknown) Cosign (units unknown) (unknown) (unknown) (no date) (unknown) (unknown) Course Narrative: (units unknown) (unknown) (unknown) (no date) (unknown) (unknown) Course (units unknown) (unknown) (unknown) (no date) (unknown) (unknown) Creatinine (0.52-1.04) mg/dL (units unknown) (unknown) (unknown) (no date) (unknown) (unknown) Creatinine 0.37 L (0.52-1.04) mg/dL (units unknown) (unknown) (unknown) (no date) (unknown) (unknown) : 1940 Acct:[id number] (units unknown) (unknown) (unknown) (no date) (unknown) (unknown) : 1940 (units unknown) (unknown) (unknown) (no date) (unknown) (unknown) Date of Service: 08/17/22 (units unknown) (unknown) (unknown) (no date) (unknown) (unknown) Departure (units unknown) (unknown) (unknown) (no date) (unknown) (unknown) Dictated by: Adam Ruby M.D. on 08/17/2022 at 13:17 ? ? (units unknown) (unknown) (unknown) (no date) (unknown) (unknown) Did discuss the results of labs thus far and the patient's EKG with her, (units unknown) (unknown) (unknown) (no date) (unknown) (unknown) Differential Diagnosis (units unknown) (unknown) (unknown) (no date) (unknown) (unknown) Differential diagnosis: Likely acute exacerbation of chronic obstructive airways (units unknown) (unknown) (unknown) (no date) (unknown) (unknown) Discharge Plan (units unknown) (unknown) (unknown) (no date) (unknown) (unknown) Discontinued Medications (units unknown) (unknown) (unknown) (no date) (unknown) (unknown) Documented By: CECY (units unknown) (unknown) (unknown) (no date) (unknown) (unknown) Dr Ross Co-Sign Statement: I was available for consultation during this (units unknown) (unknown) (unknown) (no date) (unknown) (unknown) ECG Data (units unknown) (unknown) (unknown) (no date) (unknown) (unknown) ED Attending Cosignature Attestation: (units unknown) (unknown) (unknown) (no date) (unknown) (unknown) ENT: Nose without bleeding, purulent drainage. Throat without erythema, (units unknown) (unknown) (unknown) (no date) (unknown) (unknown) ER Physician: Jeri Adam P.A-C (units unknown) (unknown) (unknown) (no date) (unknown) (unknown) EXTREMITIES: Arthritic changes to MTP joints/valgus deformity. No edema or (units unknown) (unknown) (unknown) (no date) (unknown) (unknown) EYES: Pupils equal round and reactive. Extraocular motions intact. No scleral (units unknown) (unknown) (unknown) (no date) (unknown) (unknown) Emergency Report (units unknown) (unknown) (unknown) (no date) (unknown) (unknown) Entero/Rhino (PCR) (Not Detect) (units unknown) (unknown) (unknown) (no date) (unknown) (unknown) Entero/Rhino (PCR) Not detected (Not Detect) (units unknown) (unknown) (unknown) (no date) (unknown) (unknown) Eos # (Auto) (0-450) /uL (units unknown) (unknown) (unknown) (no date) (unknown) (unknown) Eos # (Auto) 100 (0-450) /uL (units unknown) (unknown) (unknown) (no date) (unknown) (unknown) Eos % (Auto) (2-4) % (units unknown) (unknown) (unknown) (no date) (unknown) (unknown) Eos % (Auto) 1.1 L (2-4) % (units unknown) (unknown) (unknown) (no date) (unknown) (unknown) Estimated GFR > 60 (>60) mL/min (units unknown) (unknown) (unknown) (no date) (unknown) (unknown) Estimated GFR (>60) mL/min (units unknown) (unknown) (unknown) (no date) (unknown) (unknown) Exam Narrative: (units unknown) (unknown) (unknown) (no date) (unknown) (unknown) Exam (units unknown) (unknown) (unknown) (no date) (unknown) (unknown) FINDINGS:? (units unknown) (unknown) (unknown) (no date) (unknown) (unknown) GASTROINTESTINAL: Abdomen soft, non-tender, nondistended. (units unknown) (unknown) (unknown) (no date) (unknown) (unknown) GENERAL: 82 year old patient appears stated age. Well-developed patient, in mild (units unknown) (unknown) (unknown) (no date) (unknown) (unknown) General (units unknown) (unknown) (unknown) (no date) (unknown) (unknown) Globulin (1.7-4.1) g/dL (units unknown) (unknown) (unknown) (no date) (unknown) (unknown) Globulin 2.9 (1.7-4.1) g/dL (units unknown) (unknown) (unknown) (no date) (unknown) (unknown) Glucose (80-110) mg/dL (units unknown) (unknown) (unknown) (no date) (unknown) (unknown) Glucose 115 H (80-110) mg/dL (units unknown) (unknown) (unknown) (no date) (unknown) (unknown) HEAD: Atraumatic. Normocephalic. (units unknown) (unknown) (unknown) (no date) (unknown) (unknown) HEART Score (units unknown) (unknown) (unknown) (no date) (unknown) (unknown) HPI - SOB/Dyspnea (units unknown) (unknown) (unknown) (no date) (unknown) (unknown) HPI Narrative: (units unknown) (unknown) (unknown) (no date) (unknown) (unknown) Hct (36-46) % (units unknown) (unknown) (unknown) (no date) (unknown) (unknown) Hct 36.8 (36-46) % (units unknown) (unknown) (unknown) (no date) (unknown) (unknown) Heart Score Age: > or = 65 years old (units unknown) (unknown) (unknown) (no date) (unknown) (unknown) Heart Score EKG: Normal (units unknown) (unknown) (unknown) (no date) (unknown) (unknown) Heart Score Total: 2 (units unknown) (unknown) (unknown) (no date) (unknown) (unknown) Heart Score history: Slightly Suspicious (units unknown) (unknown) (unknown) (no date) (unknown) (unknown) Heart Score risk factors: No known risk factors (units unknown) (unknown) (unknown) (no date) (unknown) (unknown) Heart Score troponin: < or = to normal limit (units unknown) (unknown) (unknown) (no date) (unknown) (unknown) Heart rate 61, normal sinus rhythm, T-wave inversions in lead III, V1 biphasic (units unknown) (unknown) (unknown) (no date) (unknown) (unknown) Hgb (12.0-16.0) g/dL (units unknown) (unknown) (unknown) (no date) (unknown) (unknown) Hgb 12.1 (12.0-16.0) g/dL (units unknown) (unknown) (unknown) (no date) (unknown) (unknown) History of Present Illness (units unknown) (unknown) (unknown) (no date) (unknown) (unknown) Human Metapneumovir PCR (Not Detect) (units unknown) (unknown) (unknown) (no date) (unknown) (unknown) Human Metapneumovir PCR Not detected (Not Detect) (units unknown) (unknown) (unknown) (no date) (unknown) (unknown) I agree with radiologist's interpretation of the imaging (units unknown) (unknown) (unknown) (no date) (unknown) (unknown) I did prescribed some cough medicine for you which I hope is helpful. We did (units unknown) (unknown) (unknown) (no date) (unknown) (unknown) IMPRESSION:? COPD.? No acute cardiopulmonary pathology. (units unknown) (unknown) (unknown) (no date) (unknown) (unknown) INDICATIONS:? SOB cough (units unknown) (unknown) (unknown) (no date) (unknown) (unknown) INR (0.9-1.3) (units unknown) (unknown) (unknown) (no date) (unknown) (unknown) INR 1.1 (0.9-1.3) (units unknown) (unknown) (unknown) (no date) (unknown) (unknown) Imaging Data (units unknown) (unknown) (unknown) (no date) (unknown) (unknown) Influenza Type A (PCR) (Not Detect) (units unknown) (unknown) (unknown) (no date) (unknown) (unknown) Influenza Type A (PCR) Not detected (Not Detect) (units unknown) (unknown) (unknown) (no date) (unknown) (unknown) Influenza Type B (PCR) (Not Detect) (units unknown) (unknown) (unknown) (no date) (unknown) (unknown) Influenza Type B (PCR) Not detected (Not Detect) (units unknown) (unknown) (unknown) (no date) (unknown) (unknown) Initial Vital Signs (units unknown) (unknown) (unknown) (no date) (unknown) (unknown) Initial Vital Signs: (units unknown) (unknown) (unknown) (no date) (unknown) (unknown) Interpretation: (units unknown) (unknown) (unknown) (no date) (unknown) (unknown) [address] [address] (units unknown) (unknown) (unknown) (no date) (unknown) (unknown) [facility] (units unknown) (unknown) (unknown) (no date) (unknown) (unknown) Lab Data (units unknown) (unknown) (unknown) (no date) (unknown) (unknown) Lab Results (units unknown) (unknown) (unknown) (no date) (unknown) (unknown) Lab results narrative: (units unknown) (unknown) (unknown) (no date) (unknown) (unknown) Labs: (units unknown) (unknown) (unknown) (no date) (unknown) (unknown) Lactate (0.7-2.1) mmol/L (units unknown) (unknown) (unknown) (no date) (unknown) (unknown) Lactate 1.1 (0.7-2.1) mmol/L (units unknown) (unknown) (unknown) (no date) (unknown) (unknown) Last Admin: 08/17/22 16:20 Dose: 100 mg (units unknown) (unknown) (unknown) (no date) (unknown) (unknown) Loc: ED (units unknown) (unknown) (unknown) (no date) (unknown) (unknown) Lungs and pleura:? Lungs are clear.? Hyperinflation and chronic emphysematous (units unknown) (unknown) (unknown) (no date) (unknown) (unknown) Lymph # (Auto) (1019-6654) /uL (units unknown) (unknown) (unknown) (no date) (unknown) (unknown) Lymph # (Auto) 700 L (3854-6978) /uL (units unknown) (unknown) (unknown) (no date) (unknown) (unknown) Lymph % (Auto) (25-40) % (units unknown) (unknown) (unknown) (no date) (unknown) (unknown) Lymph % (Auto) 8.6 L (25-40) % (units unknown) (unknown) (unknown) (no date) (unknown) (unknown) M. pneumoniae (PCR) (Not Detect) (units unknown) (unknown) (unknown) (no date) (unknown) (unknown) M. pneumoniae (PCR) Not detected (Not Detect) (units unknown) (unknown) (unknown) (no date) (unknown) (unknown) MCH (26-34) PG (units unknown) (unknown) (unknown) (no date) (unknown) (unknown) MCH 31.1 (26-34) PG (units unknown) (unknown) (unknown) (no date) (unknown) (unknown) MCHC (30-36) % (units unknown) (unknown) (unknown) (no date) (unknown) (unknown) MCHC 32.8 (30-36) % (units unknown) (unknown) (unknown) (no date) (unknown) (unknown) MCV (80-100) fL (units unknown) (unknown) (unknown) (no date) (unknown) (unknown) MCV 94.7 (80-100) fL (units unknown) (unknown) (unknown) (no date) (unknown) (unknown) MDM - SOB/Dyspnea (units unknown) (unknown) (unknown) (no date) (unknown) (unknown) MDM Narrative (units unknown) (unknown) (unknown) (no date) (unknown) (unknown) MR#: [id number] (units unknown) (unknown) (unknown) (no date) (unknown) (unknown) Mediastinum:? Mediastinal contours are normal.? Heart size is normal.? (units unknown) (unknown) (unknown) (no date) (unknown) (unknown) Medical Records (units unknown) (unknown) (unknown) (no date) (unknown) (unknown) Medical decision making narrative: (units unknown) (unknown) (unknown) (no date) (unknown) (unknown) Medication Instructions Recorded (units unknown) (unknown) (unknown) (no date) (unknown) (unknown) Mode of arrival: Ambulatory (units unknown) (unknown) (unknown) (no date) (unknown) (unknown) [place] # (Auto) (0-900) /uL (units unknown) (unknown) (unknown) (no date) (unknown) (unknown) [place] # (Auto) 500 (0-900) /uL (units unknown) (unknown) (unknown) (no date) (unknown) (unknown) [place] % (Auto) (3-14) % (units unknown) (unknown) (unknown) (no date) (unknown) (unknown) [place] % (Auto) 5.9 (3-14) % (units unknown) (unknown) (unknown) (no date) (unknown) (unknown) My Impression: (units unknown) (unknown) (unknown) (no date) (unknown) (unknown) NECK: Trachea midline. Non tender (units unknown) (unknown) (unknown) (no date) (unknown) (unknown) NEURO: AOx3. (units unknown) (unknown) (unknown) (no date) (unknown) (unknown) NT-Pro-B Natriuret Pep (<450) pg/mL (units unknown) (unknown) (unknown) (no date) (unknown) (unknown) NT-Pro-B Natriuret Pep 359 (<450) pg/mL (units unknown) (unknown) (unknown) (no date) (unknown) (unknown) Narrative (units unknown) (unknown) (unknown) (no date) (unknown) (unknown) Narrative: (units unknown) (unknown) (unknown) (no date) (unknown) (unknown) Neut # (Auto) (3497-0365) /uL (units unknown) (unknown) (unknown) (no date) (unknown) (unknown) Neut # (Auto) 6900 (9028-4402) /uL (units unknown) (unknown) (unknown) (no date) (unknown) (unknown) Neut % (Auto) (50-75) % (units unknown) (unknown) (unknown) (no date) (unknown) (unknown) Neut % (Auto) 83.9 H (50-75) % (units unknown) (unknown) (unknown) (no date) (unknown) (unknown) New (units unknown) (unknown) (unknown) (no date) (unknown) (unknown) Ordered: (units unknown) (unknown) (unknown) (no date) (unknown) (unknown) Ordering Provider: Jeri Adam P.A-C (units unknown) (unknown) (unknown) (no date) (unknown) (unknown) Orders (units unknown) (unknown) (unknown) (no date) (unknown) (unknown) Oxygen Delivery Method Room Air 08/17/22 13:01 (units unknown) (unknown) (unknown) (no date) (unknown) (unknown) Oxygen Delivery Method Room Air Room Air Room Air (units unknown) (unknown) (unknown) (no date) (unknown) (unknown) PROCEDURE:? XR CHEST 2V (units unknown) (unknown) (unknown) (no date) (unknown) (unknown) PT (10.1-12.7) SECONDS (units unknown) (unknown) (unknown) (no date) (unknown) (unknown) PT 13.1 H (10.1-12.7) SECONDS (units unknown) (unknown) (unknown) (no date) (unknown) (unknown) Parainfluenza 1 (PCR) (Not Detect) (units unknown) (unknown) (unknown) (no date) (unknown) (unknown) Parainfluenza 1 (PCR) Not detected (Not Detect) (units unknown) (unknown) (unknown) (no date) (unknown) (unknown) Parainfluenza 2 (PCR) (Not Detect) (units unknown) (unknown) (unknown) (no date) (unknown) (unknown) Parainfluenza 2 (PCR) Not detected (Not Detect) (units unknown) (unknown) (unknown) (no date) (unknown) (unknown) Parainfluenza 3 (PCR) (Not Detect) (units unknown) (unknown) (unknown) (no date) (unknown) (unknown) Parainfluenza 3 (PCR) Not detected (Not Detect) (units unknown) (unknown) (unknown) (no date) (unknown) (unknown) Parainfluenza 4 (PCR) (Not Detect) (units unknown) (unknown) (unknown) (no date) (unknown) (unknown) Parainfluenza 4 (PCR) Not detected (Not Detect) (units unknown) (unknown) (unknown) (no date) (unknown) (unknown) Patient Disposition: Home (units unknown) (unknown) (unknown) (no date) (unknown) (unknown) Patient History (units unknown) (unknown) (unknown) (no date) (unknown) (unknown) Patient: Estefanía Mcneil MR#: [id number] (units unknown) (unknown) (unknown) (no date) (unknown) (unknown) Patient: Estefanía Mcneil (units unknown) (unknown) (unknown) (no date) (unknown) (unknown) Plt Count (150-400) X103/uL (units unknown) (unknown) (unknown) (no date) (unknown) (unknown) Plt Count 179 (150-400) X103/uL (units unknown) (unknown) (unknown) (no date) (unknown) (unknown) Potassium (3.4-5.1) mmol/L (units unknown) (unknown) (unknown) (no date) (unknown) (unknown) Potassium 3.9 (3.4-5.1) mmol/L (units unknown) (unknown) (unknown) (no date) (unknown) (unknown) Prescriptions: (units unknown) (unknown) (unknown) (no date) (unknown) (unknown) Previous Rx's (units unknown) (unknown) (unknown) (no date) (unknown) (unknown) Procedure: XR chest 2V (units unknown) (unknown) (unknown) (no date) (unknown) (unknown) Pulse Oximetry 95 08/17/22 13:01 (units unknown) (unknown) (unknown) (no date) (unknown) (unknown) Pulse Oximetry 95 96 98 (units unknown) (unknown) (unknown) (no date) (unknown) (unknown) Pulse Rate 64 08/17/22 13:01 (units unknown) (unknown) (unknown) (no date) (unknown) (unknown) Pulse Rate 64 85 67 (units unknown) (unknown) (unknown) (no date) (unknown) (unknown) RBC (4.0-5.2) X106/uL (units unknown) (unknown) (unknown) (no date) (unknown) (unknown) RBC 3.89 L (4.0-5.2) X106/uL (units unknown) (unknown) (unknown) (no date) (unknown) (unknown) RDW (11.6-14.8) % (units unknown) (unknown) (unknown) (no date) (unknown) (unknown) RDW 15.9 H (11.6-14.8) % (units unknown) (unknown) (unknown) (no date) (unknown) (unknown) RESPIRATORY: Clear to auscultation. Breath sounds equal bilaterally. No wheezes, (units unknown) (unknown) (unknown) (no date) (unknown) (unknown) RSV (PCR) (Not Detect) (units unknown) (unknown) (unknown) (no date) (unknown) (unknown) RSV (PCR) Not detected (Not Detect) (units unknown) (unknown) (unknown) (no date) (unknown) (unknown) Radiologist's Impression: (units unknown) (unknown) (unknown) (no date) (unknown) (unknown) Related Data (units unknown) (unknown) (unknown) (no date) (unknown) (unknown) Respiratory Rate 18 08/17/22 13:01 (units unknown) (unknown) (unknown) (no date) (unknown) (unknown) Respiratory Rate 18 18 18 (units unknown) (unknown) (unknown) (no date) (unknown) (unknown) Review of Systems (units unknown) (unknown) (unknown) (no date) (unknown) (unknown) SARS-CoV-2 (PCR) (Not Detecte) (units unknown) (unknown) (unknown) (no date) (unknown) (unknown) SARS-CoV-2 (PCR) Not detected (Not Detecte) (units unknown) (unknown) (unknown) (no date) (unknown) (unknown) SKIN: No rash or erythema of visible areas (units unknown) (unknown) (unknown) (no date) (unknown) (unknown) Scores (units unknown) (unknown) (unknown) (no date) (unknown) (unknown) Shared decision making:: Shared decision-making was used in determining the (units unknown) (unknown) (unknown) (no date) (unknown) (unknown) She denies fevers, chills, loss of appetite, abdominal pain, chest pain or any (units unknown) (unknown) (unknown) (no date) (unknown) (unknown) Signed By: (units unknown) (unknown) (unknown) (no date) (unknown) (unknown) Signed (units unknown) (unknown) (unknown) (no date) (unknown) (unknown) Smoking Status: Never smoker (units unknown) (unknown) (unknown) (no date) (unknown) (unknown) Social History (units unknown) (unknown) (unknown) (no date) (unknown) (unknown) Sodium (137-145) mmol/L (units unknown) (unknown) (unknown) (no date) (unknown) (unknown) Sodium 133 L (137-145) mmol/L (units unknown) (unknown) (unknown) (no date) (unknown) (unknown) Source: patient (units unknown) (unknown) (unknown) (no date) (unknown) (unknown) Stand Alone Forms: Patient Portal/API (units unknown) (unknown) (unknown) (no date) (unknown) (unknown) Stated Complaint: sent by [employer], SOB (units unknown) (unknown) (unknown) (no date) (unknown) (unknown) Stop: 08/17/22 16:10 (units unknown) (unknown) (unknown) (no date) (unknown) (unknown) Substance Use Type: does not use (units unknown) (unknown) (unknown) (no date) (unknown) (unknown) Sulfa (Sulfonamide Allergy Unknown Verified 08/17/22 13:06 (units unknown) (unknown) (unknown) (no date) (unknown) (unknown) Surgical changes and devices:? None.? (units unknown) (unknown) (unknown) (no date) (unknown) (unknown) T-wave lead V3 otherwise unremarkable EKG with a no ectopy or ST changes noted (units unknown) (unknown) (unknown) (no date) (unknown) (unknown) TECHNIQUE:? 2 views of the chest were acquired.? (units unknown) (unknown) (unknown) (no date) (unknown) (unknown) Temperature 97.9 F 08/17/22 13:01 (units unknown) (unknown) (unknown) (no date) (unknown) (unknown) Temperature 97.9 F (units unknown) (unknown) (unknown) (no date) (unknown) (unknown) Tetracyclines [TETRACYCLINES] Allergy Unknown Verified 08/17/22 13:06 (units unknown) (unknown) (unknown) (no date) (unknown) (unknown) Thank you for letting us be part of your care today in the emergency department. (units unknown) (unknown) (unknown) (no date) (unknown) (unknown) This is a rather well-appearing 82-year-old female who presents with concern for (units unknown) (unknown) (unknown) (no date) (unknown) (unknown) Time Seen by Provider: 08/17/22 13:19 (units unknown) (unknown) (unknown) (no date) (unknown) (unknown) Total Bilirubin (0.2-1.3) mg/dL (units unknown) (unknown) (unknown) (no date) (unknown) (unknown) Total Bilirubin 0.5 (0.2-1.3) mg/dL (units unknown) (unknown) (unknown) (no date) (unknown) (unknown) Total Protein (6.3-8.2) g/dL (units unknown) (unknown) (unknown) (no date) (unknown) (unknown) Total Protein 6.7 (6.3-8.2) g/dL (units unknown) (unknown) (unknown) (no date) (unknown) (unknown) Treatment and disposition (units unknown) (unknown) (unknown) (no date) (unknown) (unknown) Troponin I < 0.012 (0.01-0.034) ng/mL (units unknown) (unknown) (unknown) (no date) (unknown) (unknown) Troponin I (0.01-0.034) ng/mL (units unknown) (unknown) (unknown) (no date) (unknown) (unknown) Unremarkable except as noted in the HPI (units unknown) (unknown) (unknown) (no date) (unknown) (unknown) Vital Signs - 8 hr (units unknown) (unknown) (unknown) (no date) (unknown) (unknown) Vital Signs (units unknown) (unknown) (unknown) (no date) (unknown) (unknown) Vital signs: (units unknown) (unknown) (unknown) (no date) (unknown) (unknown) WBC (4.5-11.0) X103/uL (units unknown) (unknown) (unknown) (no date) (unknown) (unknown) WBC 8.3 (4.5-11.0) X103/uL (units unknown) (unknown) (unknown) (no date) (unknown) (unknown) XRay Report (units unknown) (unknown) (unknown) (no date) (unknown) (unknown) Your viral panel did come back positive for 1 of the common cold viruses it is (units unknown) (unknown) (unknown) (no date) (unknown) (unknown) [Embedded Image Not Available] (units unknown) (unknown) (unknown) (no date) (unknown) (unknown) [SULFA (SULFONAMIDE (units unknown) (unknown) (unknown) (no date) (unknown) (unknown) a distant 13 year history of smoking but denied any diagnosis of COPD. Patient (units unknown) (unknown) (unknown) (no date) (unknown) (unknown) a type of coronavirus but it is not COVID. This likely explains her symptoms. (units unknown) (unknown) (unknown) (no date) (unknown) (unknown) administrative purposes only. I did not have direct contact with this patient (units unknown) (unknown) (unknown) (no date) (unknown) (unknown) after finding negative flu and COVID and an EKG that they felt was concerning (units unknown) (unknown) (unknown) (no date) (unknown) (unknown) age and report of cough and shortness of breath recently. This returns (units unknown) (unknown) (unknown) (no date) (unknown) (unknown) alcohol intake frequency: 0-2 drinks per day (units unknown) (unknown) (unknown) (no date) (unknown) (unknown) and sent her here for further evaluation. (units unknown) (unknown) (unknown) (no date) (unknown) (unknown) ankles or anywhere else. She states the cough has been bothersome as it is (units unknown) (unknown) (unknown) (no date) (unknown) (unknown) antibiotics are warranted. Patient's respiratory panel did come back positive (units unknown) (unknown) (unknown) (no date) (unknown) (unknown) appointment. Please return to the Emergency Department for any worsening or (units unknown) (unknown) (unknown) (no date) (unknown) (unknown) be health. This evaluation returned looking fine. Please follow-up closely (units unknown) (unknown) (unknown) (no date) (unknown) (unknown) been persistent for 3-4 days repeat troponins are not obtained. Respiratory (units unknown) (unknown) (unknown) (no date) (unknown) (unknown) benzonatate 100 mg capsule 100 mg PO TID PRN cough 7 days #21 08/17/22 (units unknown) (unknown) (unknown) (no date) (unknown) (unknown) benzonatate 100 mg capsule (units unknown) (unknown) (unknown) (no date) (unknown) (unknown) caps (units unknown) (unknown) (unknown) (no date) (unknown) (unknown) changes are (units unknown) (unknown) (unknown) (no date) (unknown) (unknown) course of steroids given emphysematous changes noted on her x-ray she does have (units unknown) (unknown) (unknown) (no date) (unknown) (unknown) did a 12 lead that they thought was concerning due to some depression changes (units unknown) (unknown) (unknown) (no date) (unknown) (unknown) discuss possibly doing some steroid medicine given that you have a distant (units unknown) (unknown) (unknown) (no date) (unknown) (unknown) discussed options noting that her chest x-ray suggestive of chronic mild (units unknown) (unknown) (unknown) (no date) (unknown) (unknown) disease, community acquired pneumonia and other (Viral URI, CHF, [place]) (units unknown) (unknown) (unknown) (no date) (unknown) (unknown) distress, well-appearing. (units unknown) (unknown) (unknown) (no date) (unknown) (unknown) during this visit. They were seen independently by the [facility]. 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 We also evaluated you for (units unknown) (unknown) (unknown) (no date) (unknown) (unknown) for coronavirus OC 43, which likely explains her symptoms. Patient is (units unknown) (unknown) (unknown) (no date) (unknown) (unknown) for possible ST depression. EKG today in the emergency department is (units unknown) (unknown) (unknown) (no date) (unknown) (unknown) friend lan. She endorses chronic intermittent loose stools which have been (units unknown) (unknown) (unknown) (no date) (unknown) (unknown) going on 24 hours a day she is been taking Mucinex and occasionally fisherman's (units unknown) (unknown) (unknown) (no date) (unknown) (unknown) hesitate to seek care if you feel you have new or worsening symptoms. There is (units unknown) (unknown) (unknown) (no date) (unknown) (unknown) icterus. No injection or drainage. (units unknown) (unknown) (unknown) (no date) (unknown) (unknown) is interested in cough medicine. Labs are generally looking good however she (units unknown) (unknown) (unknown) (no date) (unknown) (unknown) joint tenderness. (units unknown) (unknown) (unknown) (no date) (unknown) (unknown) mild swelling in her feet but has not noticed any weight gain or swelling of her (units unknown) (unknown) (unknown) (no date) (unknown) (unknown) no evidence of an emergent or life threatening illness at this time, but follow (units unknown) (unknown) (unknown) (no date) (unknown) (unknown) other symptoms. Patient does state that she has a friend that recently tested (units unknown) (unknown) (unknown) (no date) (unknown) (unknown) out serious underlying causes of your symptoms. Please call the office for an (units unknown) (unknown) (unknown) (no date) (unknown) (unknown) outpatient follow-up and treatment (units unknown) (unknown) (unknown) (no date) (unknown) (unknown) patient's emergency department visit. This chart is signed by myself for (units unknown) (unknown) (unknown) (no date) (unknown) (unknown) patient's evaluation today in the emergency department and her plan for (units unknown) (unknown) (unknown) (no date) (unknown) (unknown) penicillin G [PENICILLIN G] Allergy Unknown Verified 08/17/22 13:06 (units unknown) (unknown) (unknown) (no date) (unknown) (unknown) persistent symptoms. Please take medications as directed. (units unknown) (unknown) (unknown) (no date) (unknown) (unknown) positive for COVID but otherwise has not had sick contacts. Pt states she went (units unknown) (unknown) (unknown) (no date) (unknown) (unknown) possible heart problem given you were sent here with concern for this from would (units unknown) (unknown) (unknown) (no date) (unknown) (unknown) precautions provided, follow-up plan discussed, all questions answered. (units unknown) (unknown) (unknown) (no date) (unknown) (unknown) prescribed benzonatate advised to follow up closely with primary care, return (units unknown) (unknown) (unknown) (no date) (unknown) (unknown) presents with concern for fatigue, a cough and feeling somewhat short of breath (units unknown) (unknown) (unknown) (no date) (unknown) (unknown) rales, or rhonchi. (units unknown) (unknown) (unknown) (no date) (unknown) (unknown) ray as well as exam, low suspicion for a pneumonia and do not feel that (units unknown) (unknown) (unknown) (no date) (unknown) (unknown) receiving cough medicine for her bothersome cough. Based on labs and chest x (units unknown) (unknown) (unknown) (no date) (unknown) (unknown) seen.? No pleural effusions or pneumothorax.? (units unknown) (unknown) (unknown) (no date) (unknown) (unknown) smoking history and your x-ray today was suggestive of some chronic (units unknown) (unknown) (unknown) (no date) (unknown) (unknown) stated she did not want to take any steroid medication, she is interested in (units unknown) (unknown) (unknown) (no date) (unknown) (unknown) still has respiratory panel pending. (units unknown) (unknown) (unknown) (no date) (unknown) (unknown) to feel short of breath with exertion, she does feel that she has maybe had some (units unknown) (unknown) (unknown) (no date) (unknown) (unknown) to [facility] and was seen there and had a negative COVID flu test but they (units unknown) (unknown) (unknown) (no date) (unknown) (unknown) tonsillar hypertrophy or exudate. Airway patent. (units unknown) (unknown) (unknown) (no date) (unknown) (unknown) unchanged for her. She states it is somewhat productive with mucus coming up. (units unknown) (unknown) (unknown) (no date) (unknown) (unknown) unremarkable and given that she is not had any chest pain and her symptoms have (units unknown) (unknown) (unknown) (no date) (unknown) (unknown) unremarkable, cardiac workup labs including BNP is performed given the patient's (units unknown) (unknown) (unknown) (no date) (unknown) (unknown) unremarkable.? (units unknown) (unknown) (unknown) (no date) (unknown) (unknown) up with your doctor in 1-2 days is recommended nonetheless to continue to rule (units unknown) (unknown) (unknown) (no date) (unknown) (unknown) viral panel is obtained. Did discuss with her possibly treating her with a (units unknown) (unknown) (unknown) (no date) (unknown) (unknown) with exertion over the past 2 or 3 days. Patient states it is unusual for her (units unknown) (unknown) (unknown) (no date) (unknown) (unknown) with your primary care provider and monitor for new or worsening symptoms do not (units unknown) (unknown) Social History date description facility 2022-08-17 00:00 Never smoked tobacco ([facility] Vital Signs date measurement value units [...]
--- NOTE | 2022-10-10 19:29 | ED Physician Documentation ---
History of Present Illness - Stated complaint Stated Complaint: GEN WEAKNESS - Chief complaint Chief Complaint: Fever - History obtained from History obtained from: Patient, Family - Additonal information Additional information: Brought in by ambulance. Patient is, at times, a difficult historian. I have to repeat many of my HPI/ROS questions to her; it is not clear if this is because she cannot hear me, is seeking further clarification, or is not certain of the answer.In any event, patient's answers to my HPI/ROS questions tend to be vague, and she often turns to her (in the ED at patient's bedside) looking to him for the answers. Patient's says that the patient "just got out of rehab", few days ago, and "has not been eating" for the past 3 or 4 days. He says this is due to a poor appetite. He also notes that patient has exhibited generalized weakness over the past 2 to 3 days. When I ask the patient and the spouse about whether patient has had fevers at home, they state that the medics noted a temperature of 102.7...this is confirmed by medic report). Asked again if they have been measuring patient's temperature at home over the past few days, and they repeate dly returned to the answer of the medics results when they took the temperature prior to arrival. Denies chest pain, denies shortness of breath. Only brings up cough and review of systems fashion, and indicates mild, intermittent, dry cough. Review of Systems Unable to obtain: Other (poor historian (see HPI)) Constitutional: reports: Fever Cardiac: denies: Chest pain / pressure Respiratory: reports: Cough. denies: Dyspnea GI: reports: Abdominal Pain (no c/o abdominal pain until exam, then says she has abominal pain; I ask if she was having abdominal pain before the exam, and she Persists each time I asked this question with "it hurts now that you were pushing on it", rather than explaining if she had abdominal pain earlier this before the exam), Constipation. denies: Nausea, Vomiting, Diarrhea : denies: Dysuria, Frequency PD PAST MEDICAL HISTORY - Past Medical History Cardiovascular: None, Other Respiratory: Pneumonia, Other Neuro: None Endocrine/Autoimmune: Other GI: GERD, Chronic diarrhea, Chronic constipation, Other CAMP ADVISOR: Other : Incontinence HEENT: Chronic vision loss Psych: None Musculoskeletal: Rheumatoid arthritis Derm: Other - Past Surgical History Past Surgical History: Yes General: Cholecystectomy, Appendectomy, Bowel surgery, Colonoscopy Ortho: Arthroscopic surgery /CAMP ADVISOR: Hysterectomy HEENT: Cataracts Derm: Skin cancer surgery - Present Medications Home Medications: Ambulatory Orders Medication Instructions Recorded Confirmed predniSONE [Deltasone] 5 mg PO DAILY 12/20/12 08/26/22 Acetaminophen [Tylenol] 650 mg PO Q4HR PRN tab 09/06/22 Albuterol 2.5 mg INH Q2HR PRN ml 09/06/22 Budesonide [Pulmicort] 0.5 mg INH RTBID ml 09/06/22 Ciprofloxacin [Cipro] 500 mg PO BID tab 09/06/22 Famotidine [Pepcid] 20 mg PO BID tab 09/06/22 Formoterol Fumarate [Perforomist] 20 mcg INH RTBID ml 09/06/22 Ipratropium/Albuterol [Duoneb] 3 ml INH RTTID ml 09/06/22 Methotrexate Sodium/Pf 25 mg SUBQ MO #0 09/06/22 08/26/22 [Methotrexate 50 mg/2 ml Vial] Montelukast [Singulair] 10 mg PO QPM tab 09/06/22 Multivitamin [Theragran] 1 tab PO DAILY tab 09/06/22 Propranolol ER [Inderal LA] 80 mg PO DAILY #0 09/06/22 08/26/22 Saccharomyces Boulardii [Florastor] 250 mg PO BIDWM cap 09/06/22 Zinc Oxide 20% Oint [Zinc Oxide] 1 applic TOP PRN PRN each 09/06/22 predniSONE [Deltasone] 5 mg PO DAILYWM tab 09/06/22 - Allergies Allergies/Adverse Reactions: Allergies Allergy/AdvReac Type Severity Reaction Status Date / Time meperidine HCl * AdvReac Unknown Hallucinati Verified 08/25/22 15:36 [From Demerol] ons morphine AdvReac Unknown Dizziness Verified 08/25/22 15:36 Penicillins AdvReac Unknown Unknown Verified 10/11/22 07:21 Sulfa (Sulfonamide AdvReac Unknown Rash Verified 08/25/22 15:36 Antibiotics) tetracycline AdvReac Unknown Rash Verified 08/25/22 15:36 - Social History Does the pt smoke?: No Smoking Status: Never smoker Does the pt drink ETOH?: No Does the pt have substance abuse?: No - Immunizations Immunizations are current?: Yes - POLST Patient has POLST: No POLST Status: Full Code PD ED PE NORMAL - Vitals Vital signs reviewed: Yes - General General: Alert and oriented X 3, No acute distress, Well developed/nourished - HEENT HEENT: Other (pasty/tacky mucous membranes) - Neck Neck: Supple, no meningeal sign - Cardiac Cardiac: RRR, No murmur - Respiratory Respiratory: No respiratory distress, Clear bilaterally - Abdomen Abdomen: Soft, Non distended, Other (TTP across lower abdomen) - Derm Derm: Normal color, Warm and dry - Extremities Extremities: No edema Results - Vitals Vitals: Vital Signs - 24 hr 10/10/22 10/10/22 10/10/22 21:06 22:00 22:30 Temperature 38.1 C H 38.5 C H Heart Rate 125 H 88 89 Respiratory 16 Rate Blood Pressure 137/76 H 132/66 H 137/67 H O2 Saturation 99 96 10/10/22 10/10/22 10/11/22 23:00 23:30 00:58 Temperature 37.4 C Heart Rate 103 H 88 98 Respiratory 16 14 16 Rate Blood Pressure 120/74 107/57 L 106/52 L O2 Saturation 96 99 94 10/11/22 10/11/22 10/11/22 02:20 05:00 06:54 Temperature 37.4 C Heart Rate 94 73 98 Respiratory 16 24 18 Rate Blood Pressure 120/74 122/57 L 109/83 H O2 Saturation 95 96 92 10/11/22 10/11/22 10/11/22 09:00 11:00 11:45 Temperature Heart Rate 109 H 111 H 109 H Respiratory 32 H 26 H 26 H Rate Blood Pressure 113/58 L 128/58 L 128/58 L O2 Saturation 97 95 95 10/11/22 10/11/22 10/11/22 12:21 12:50 13:17 Temperature 37.4 C Heart Rate 110 H 109 H 107 H Respiratory 28 H 28 H 24 Rate Blood Pressure 111/61 111/61 136/67 H O2 Saturation 97 96 96 10/11/22 14:02 Temperature Heart Rate 112 H Respiratory 22 Rate Blood Pressure 137/60 H O2 Saturation Oxygen O2 Source Room air - Labs Labs: Laboratory Tests 10/10/22 10/10/22 10/10/22 19:43 20:05 20:05 WBC 1.4 L* RBC 4.60 Hgb 12.9 Hct 41.3 MCV 89.8 MCH 28.0 MCHC 31.2 L RDW 14.8 Plt Count 182 MPV 9.0 Neut # (Auto) 0.0 L* Lymph # (Auto) 0.8 L [place] # (Auto) 0.7 Eos # (Auto) 0.0 Baso # (Auto) 0.0 Absolute Nucleated RBC 0.00 Total Counted CLINICAL ADVISOR Band Neuts % (Manual) Not Reportable Abnorm Lymph % (Manual) Not Reportable Nucleated RBC % 0.0 Neutrophils # (Manual) Not Reportable Lymphocytes # (Manual) Not Reportable Monocytes # (Manual) Not Reportable Eosinophils # (Manual) Not Reportable Basophils # (Manual) Not Reportable Differential Comment MANUAL=AUTO DIFF Manual Slide Review Indicated WBC Morphology NORMAL APPEARANCE Platelet Estimate NORMAL (130-450,000) Platelet Morphology NORMAL APPEARANCE RBC Morph Micro Appear NORMAL APPEARANCE Sodium Potassium Chloride Carbon Dioxide Anion Gap BUN Creatinine Estimated GFR (MDRD) Glucose Lactic Acid Calcium Total Bilirubin AST ALT Alkaline Phosphatase Total Protein Albumin Globulin Albumin/Globulin Ratio Lipase TSH 1.07 Urine Color Urine Clarity Urine pH Ur Specific [place] Urine Protein Urine Glucose (UA) Urine Ketones Urine Occult Blood Urine Nitrite Urine Bilirubin Urine Urobilinogen Ur Leukocyte Esterase Urine RBC Urine WBC Ur Squamous Epith Cells Amorphous Sediment Urine Bacteria Ur Microscopic Review Urine Culture Comments Nasal Adenovirus (PCR) NOT DETECTED Nasal B. parapertussis DNA (PCR) NOT DETECTED Nasal Coronavir 229E PCR NOT DETECTED Nasal Coronavir HKU1 PCR NOT DETECTED Nasal Coronavir NL63 PCR NOT DETECTED Nasal Coronavir OC43 PCR NOT DETECTED Nasal Enterovir/Rhinovir PCR NOT DETECTED Nasal Influenza B PCR NOT DETECTED Nasal Influenza A PCR NOT DETECTED Nasal Parainfluen 1 PCR NOT DETECTED Nasal Parainfluen 2 PCR NOT DETECTED Nasal Parainfluen 3 PCR NOT DETECTED Nasal Parainfluen 4 PCR NOT DETECTED Nasal RSV (PCR) NOT DETECTED Nasal B.pertussis DNA PCR NOT DETECTED Nasal C.pneumoniae (PCR) NOT DETECTED Oscar Human Metapneumo PCR NOT DETECTED Nasal M.pneumoniae (PCR) NOT DETECTED Nasal SARS-CoV-2 (PCR) NOT DETECTED 10/10/22 10/10/22 10/10/22 20:05 20:05 21:12 WBC RBC Hgb Hct MCV MCH MCHC RDW Plt Count MPV Neut # (Auto) Lymph # (Auto) [place] # (Auto) Eos # (Auto) Baso # (Auto) Absolute Nucleated RBC Total Counted Band Neuts % (Manual) Abnorm Lymph % (Manual) Nucleated RBC % Neutrophils # (Manual) Lymphocytes # (Manual) Monocytes # (Manual) Eosinophils # (Manual) Basophils # (Manual) Differential Comment Manual Slide Review WBC Morphology Platelet Estimate Platelet Morphology RBC Morph Micro Appear Sodium 137 Potassium 3.4 L Chloride 107 Carbon Dioxide 25 Anion Gap 5.0 L BUN 14 Creatinine 0.5 Estimated GFR (MDRD) 118 Glucose 110 H Lactic Acid 1.4 Calcium 8.7 Total Bilirubin 0.7 AST 31 ALT 42 Alkaline Phosphatase 56 Total Protein 5.8 L Albumin 3.1 L Globulin 2.7 Albumin/Globulin Ratio 1.1 Lipase 31 TSH Urine Color YELLOW Urine Clarity CLOUDY Urine pH 7.0 Ur Specific [place] 1.015 Urine Protein NEGATIVE Urine Glucose (UA) NEGATIVE Urine Ketones 15 H Urine Occult Blood NEGATIVE Urine Nitrite NEGATIVE Urine Bilirubin NEGATIVE Urine Urobilinogen 0.2 (NORMAL) Ur Leukocyte Esterase NEGATIVE Urine RBC 0-5 Urine WBC 0-3 Ur Squamous Epith Cells MANY Squamous H Amorphous Sediment Marked Urine Bacteria None Seen Ur Microscopic Review INDICATED Urine Culture Comments NOT INDICATED Nasal Adenovirus (PCR) Nasal B. parapertussis DNA (PCR) Nasal Coronavir 229E PCR Nasal Coronavir HKU1 PCR Nasal Coronavir NL63 PCR Nasal Coronavir OC43 PCR Nasal Enterovir/Rhinovir PCR Nasal Influenza B PCR Nasal Influenza A PCR Nasal Parainfluen 1 PCR Nasal Parainfluen 2 PCR Nasal Parainfluen 3 PCR Nasal Parainfluen 4 PCR Nasal RSV (PCR) Nasal B.pertussis DNA PCR Nasal C.pneumoniae (PCR) Oscar Human Metapneumo PCR Nasal M.pneumoniae (PCR) Nasal SARS-CoV-2 (PCR) 10/10/22 23:28 WBC 2.1 L RBC 4.15 L Hgb 11.7 L Hct 37.1 MCV 89.4 MCH 28.2 MCHC 31.5 L RDW 14.6 Plt Count 158 MPV 9.1 Neut # (Auto) Not Reportable Lymph # (Auto) Not Reportable [place] # (Auto) Not Reportable Eos # (Auto) Not Reportable Baso # (Auto) Not Reportable Absolute Nucleated RBC Not Reportable Total Counted 100 Band Neuts % (Manual) 0 Abnorm Lymph % (Manual) 0 Nucleated RBC % Not Reportable Neutrophils # (Manual) Not Reportable Lymphocytes # (Manual) 1.2 L Monocytes # (Manual) 0.8 Eosinophils # (Manual) 0.1 Basophils # (Manual) 0.0 Differential Comment MANUAL DIFFERENTIAL Manual Slide Review WBC Morphology NORMAL APPEARANCE Platelet Estimate NORMAL (130-450,000) Platelet Morphology NORMAL APPEARANCE RBC Morph Micro Appear NORMAL APPEARANCE Sodium Potassium Chloride Carbon Dioxide Anion Gap BUN Creatinine Estimated GFR (MDRD) Glucose Lactic Acid Calcium Total Bilirubin AST ALT Alkaline Phosphatase Total Protein Albumin Globulin Albumin/Globulin Ratio Lipase TSH Urine Color Urine Clarity Urine pH Ur Specific [place] Urine Protein Urine Glucose (UA) Urine Ketones Urine Occult Blood Urine Nitrite Urine Bilirubin Urine Urobilinogen Ur Leukocyte Esterase Urine RBC Urine WBC Ur Squamous Epith Cells Amorphous Sediment Urine Bacteria Ur Microscopic Review Urine Culture Comments Nasal Adenovirus (PCR) Nasal B. parapertussis DNA (PCR) Nasal Coronavir 229E PCR Nasal Coronavir HKU1 PCR Nasal Coronavir NL63 PCR Nasal Coronavir OC43 PCR Nasal Enterovir/Rhinovir PCR Nasal Influenza B PCR Nasal Influenza A PCR Nasal Parainfluen 1 PCR Nasal Parainfluen 2 PCR Nasal Parainfluen 3 PCR Nasal Parainfluen 4 PCR Nasal RSV (PCR) Nasal B.pertussis DNA PCR Nasal C.pneumoniae (PCR) Oscar Human Metapneumo PCR Nasal M.pneumoniae (PCR) Nasal SARS-CoV-2 (PCR) - Rads (name of study) CT A/P Relevant Findings:: Prelim report reviewed, See rad report PD Medical Decision Making - ED course Complexity details: reviewed results, re-evaluated patient, considered differential, d/w patient, d/w family ED course: Tests ordered and results reviewed by me: CBC, ear abdominal panel, lactate, chest x-ray, respiratory PCR panel, CAT scan of the abdomen and pelvis. As noted above, the patient provides HPI/ROS that seems to vary from 1 moment to another in content. For example, she does not mention anything about abdominal pain when I ask her what brought her in today, several times in several different ways that I asked this question. The does most of the talking in regards to answers for the patient. He says that she just got home from rehab and, in short, has a poor appetite and generalized weakness for the past few days. Regards to the abdominal pain, on abdominal exam, she indicates tenderness across the lower abdomen, asking the a few times to "stop that!". Past surgical history includes cholecystectomy and appendectomy. Given the report of fever by EMS, and her tenderness across the lower abdomen, one concern would be intra-abdominal pathology that could involve inflammation and/or infection such as, but not necessarily limited to, diverticulitis. And thus the CT abdomen pelvis is included in [facility]'s tests. She is given 500 cc normal saline IV for rehydration. Lab called with critical abnormalities on CBC: Specifically, white blood cell count is 1.4 with 0.0 neutrophils. Looking at previous results on [facility], she has never had low white blood cell counts and, in fact, her most recent white blood cell count in [facility] prior to [facility] is from a few weeks ago when it was 10.3.Her hemoglobin is 12.9 and platelets are 182. Her electrolytes are unremarkable, minimal hypokalemia with a potassium of 3.4) and she has normal kidney function tests as well as a normal TSH result.This patient does not receive chemotherapy nor radiation therapy. There is no obvious reason for her severe neutropenia. She is given triple antibiotic therapy after blood cultures are obtained. Amongst her allergies listed is penicillin; I asked patient what her reaction to penicillin is and she shrugs her shoulders. I asked a second time, emphasizing the importance of knowing if it is a mild or severe reaction because this could affect potentially life-saving antibiotic choice.; She again shrugs her shoulders, this time same "I do not know, I just have a reaction to it". Will presume she has a dangerous/severe penicillin allergy, and thus she is given triple antibiotic therapy comprised of vancomycin, metronidazole, and Azactam (rather than cefepime). There are no beds available for admission to [facility] and that she is held in the ER overnight with anticipation of admitting to the [facility] when beds become available. I did discuss the case with hem/onc at [facility] (Dr. Enriquez); he recommends treatment approach as for neutropenic fever (cultures, broad-spectrum antibiotics), and that patient would be appropriate for [facility] admit, can follow up with hem/onc outpatient Note that after the end of my shift but before I had left the hospital (was performing chart work), I received a phone call from pharmacy who requested to switch the Azactam to cefepime. Mention the penicillin allergy issue (as noted above); he points out that it is on [employer] records that he had reviewed that the patient received several days of cefepime without any note of adverse reaction and his recommendation is to switch from Azactam to cefepime which I approve. Departure - Departure Disposition: [facility] DC/Xfer Clinical Impression: Neutropenic fever, HCAP (healthcare-associated pneumonia) Discharge Date/Time: 10/11/22 15:50
[2022-10-10] MEDS ORDERED: SODIUM CHLORIDE 0.9% 500 ML IV STA (19:54)
[2022-10-10 20:15] LABS: BASOPHILS % (AUTO) 0.7 %; EOSINOPHILS % (AUTO) 1.4 %; HCT - HEMATOCRIT 41.3 % (37.0-47.0); HGB - HEMOGLOBIN 12.9 g/dL (12.0-16.0); LYMPHOCYTES # (AUTO) 0.8 10^3/uL (1.5-3.5); LYMPHOCYTES % (AUTO) 52.4 %; MEAN CORPUSCULAR HGB CONC 31.2 g/dL (32.0-36.0); MEAN CORPUSCULAR VOLUME 89.8 fL (81.0-99.0); MONOCYTES # (AUTO) 0.7 10^3/uL (0.0-1.0); MONOCYTES % (AUTO) 45.5 %; PLT - PLATELET COUNT 182 10^3/uL (130-450); RED CELL DISTRIBUTION WIDTH 14.8 % (12.0-15.0)
[2022-10-10 20:19] LABS: WHITE BLOOD COUNT 1.4 x10^3/uL (4.8-10.8)
[2022-10-10 20:20] LABS: SLIDE REVIEW? Indicated
[2022-10-10 20:32] LABS: ALBUMIN 3.1 g/dL (3.2-5.5); ALBUMIN/GLOBULIN RATIO 1.1 (1.0-2.2); BILIRUBIN,TOTAL 0.7 mg/dL (0.2-1.0); CALCIUM 8.7 mg/dL (8.5-10.3); CREATININE 0.5 mg/dL (0.4-1.0); POTASSIUM 3.4 mmol/L (3.5-5.0); TOTAL PROTEIN 5.8 g/dL (6.7-8.2)
[2022-10-10] MEDS ORDERED: iohexoL-300 100 ML VIAL ONE (20:34)
[2022-10-10] MEDS ORDERED: metroNIDAZOLE 500 MG/100 ML 500 MG/100 ML BAG IV STA (20:34)
[2022-10-10] MEDS ORDERED: CEFEPIME 2 GM in SODIUM CHLORIDE 0.9% MINIBAG 100 ML IV STA (20:34)
[2022-10-10] MEDS ORDERED: VANCOMYCIN INJ 1.25 GM in SODIUM CHLORIDE 0.9% 250 ML IV STA (20:34)
[2022-10-10 20:52] LABS: DIFFERENTIAL COMMENT MANUAL=AUTO DIFF; PLATELET ESTIMATE, MANUAL NORMAL (130-450,000) (NORMAL); PLATELET MORPHOLOGY NORMAL APPEARANCE (NORMAL); RBC MORPHOLOGY (MULTIPLE) NORMAL APPEARANCE (NORMAL); WBC MORPHOLOGY (MULTIPLE) NORMAL APPEARANCE (NORMAL)
[2022-10-10 21:01] LABS: B. PARAPERTUSSIS- RESP PCR PAN NOT DETECTED; B. PERTUSSIS- RESP PCR PANEL NOT DETECTED; C. PNEUMONIAE- RESP PCR PANEL NOT DETECTED; CORONAVIRUS 229E-RESP PCR NOT DETECTED; CORONAVIRUS HKU1-RESP PCR NOT DETECTED; CORONAVIRUS NL63-RESP PCR NOT DETECTED; CORONAVIRUS OC43-RESP PCR NOT DETECTED; HUMAN METAPNEUMOVIRUS NOT DETECTED; INFLUENZA A- RESP PCR PANEL NOT DETECTED; INFLUENZA B - RESP PCR PANEL NOT DETECTED; M. PNEUMONIAE- RESP PCR PANEL NOT DETECTED; PARAINFLUENZA VIRUS 1 NOT DETECTED; PARAINFLUENZA VIRUS 2 NOT DETECTED; PARAINFLUENZA VIRUS 3 NOT DETECTED; PARAINFLUENZA VIRUS 4 NOT DETECTED; RHINOVIRUS/ENTEROVIRUS NOT DETECTED; RSV- RESP PCR PANEL NOT DETECTED; SARS-CoV-2 -RESP PCR PANEL NOT DETECTED
[2022-10-10 21:27] LABS: BILIRUBIN,URINE NEGATIVE (NEGATIVE); GLUCOSE, URINE (UA) NEGATIVE (NEGATIVE); KETONES,URINE (UA) 15 mg/dL (NEGATIVE); LEUKOCYTE ESTERASE, URINE NEGATIVE (NEGATIVE); NITRITE,URINE NEGATIVE (NEGATIVE); OCCULT BLOOD,URINE NEGATIVE (NEGATIVE); PROTEIN,URINE NEGATIVE (NEGATIVE); UROBILINOGEN,URINE 0.2 (NORMAL) E.U./dL (NORMAL)
[2022-10-10 21:31] LABS: CLARITY,URINE CLOUDY (CLEAR)
[2022-10-10 21:33] LABS: RBC,URINE 0-5 /HPF (0-5); SQUAMOUS EPITHELIAL CELL,UR MANY Squamous (<= Few); WBC,URINE 0-3 /HPF (0-5)
[2022-10-10 21:34] LABS: AMORPHOUS SEDIMENT,UR Marked /LPF; BACTERIA,URINE None Seen /HPF (None Seen)
[2022-10-10] MEDS ORDERED: iohexoL-300 100 ML VIAL IVP ONE (21:59)
[2022-10-10] MEDS ORDERED: AZTREONAM 2 GM in SODIUM CHLORIDE 0.9% MINIBAG 100 ML IV SCH (22:00)
--- NOTE | 2022-10-10 22:13 | XRAY Report ---
PROCEDURE: Chest 2 View X-Ray INDICATIONS: fever TECHNIQUE: 2 views of the chest were acquired. COMPARISON: None. FINDINGS: Surgical changes and devices: None. Lungs and pleura: Evaluation limited by patient rotation. There are indistinct opacities in the lung bases peripherally consistent with atelectasis or consolidation. No pleural effusions or pneumothora x. Mediastinum: Evaluation limited by patient rotation. Heart size is normal. Bones and chest wall: No suspicious bony lesions. Overlying soft tissues appear unremarkable. IMPRESSION: 1. Limited study due to rotation demonstrates indistinct peripheral right basilar opacities consisten t with atelectasis or consolidation. Reviewed by: Mateo Rene MD on 10/10/2022 10:11 PM PDT Approved by: Mateo Rene MD on 10/10/2022 10:11 PM PDT Station ID: [id number]
[2022-10-10] MEDS ORDERED: ACETAMINOPHEN 325 MG TABLET PO STA (22:36)
--- NOTE | 2022-10-10 22:42 | CT Report ---
PROCEDURE: ABDOMEN/PELVIS W INDICATIONS: lower abdominal pain, tenderness CONTRAST: 100mL Omni 300 TECHNIQUE: After the administration of intravenous contrast, 5 mm thick sections acquired from the diaphragms to the symphysis. 5 mm thick coronal and sagittal reformats were acquired. For radiation dose reducti on, the following was used: automated exposure control, adjustment of mA and/or kV according to lis ent size. COMPARISON: CT abdomen pelvis 07/06/2019, 05/25/2018. FINDINGS: Image quality: Evaluation is limited by motion artifact. Lung bases:There is scarring redemonstrated within the left lingula. There are clustered indistinct nodules in the left lower lobe peripherally. Heart: Heart is normal in size. There is a small hiatal hernia. ABDOMEN: Liver: No definite mass lesion. Gallbladder: Within normal limits without calcified gallstones. Biliary ducts: No biliary ductal dilatation. Pancreas: Unremarkable. Spleen: Normal in size. Adrenal Glands: No adrenal nodules. Kidneys and Ureters: No hydronephrosis. Stomach and Bowel: Stomach, small bowel loops, and colon are normal in caliber and wall thickness. P ostsurgical changes are redemonstrated in the rectosigmoid colon with bowel sutures noted. No pericec al inflammatory changes to suggest appendicitis. There are scattered air-fluid levels within small an d large bowel loops without abnormal dilatation or transition point. The findings may reflect a mild gastroenteritis. Peritoneum: No abnormal intraperitoneal fluid. No free air. Ventral Wall: There is a small fat-containing periumbilical hernia. Abdominal Nodes: No retroperitoneal or mesenteric adenopathy by size criteria. Vessels: Aorta and inferior vena cava are normal in size. PELVIS: Pelvic Organs:The uterus is surgically absent. Bladder:There is a small focus of intraluminal gas within the bladder. Normal wall thickness.. Pelvic Nodes: No enlarged lymph nodes. Miscellaneous: No inguinal hernias. Mild presacral fat stranding appears similar to the prior study. Bones: Visualized osseous structures demonstrate no suspicious lesions. IMPRESSION: 1. Scattered air-fluid levels within nondilated small and large bowel loops reflect a mild gastroente ritis. 2. Postsurgical changes redemonstrated within the rectosigmoid colon with associated presacral fat st randing. Findings are similar to the prior study. 3. Small focus of intraluminal gas within the bladder. The finding is nonspecific and may reflect seq uelae of catheterization versus infection from a gas-forming organism. Recommend correlation with cli nical history and urinalysis. 4. Small clustered peripheral nodules in the left lower lobe suggestive of a mild infectious or infla mmatory process. Reviewed by: Mateo Rene MD on 10/10/2022 10:40 PM PDT Approved by: Mateo Rene MD on 10/10/2022 10:40 PM PDT Station ID: [id number]
[2022-10-10] MEDS: AZTREONAM 2 GM in SODIUM CHLORIDE 0.9% MINIBAG 100 ML IV SCH (22:44)
[2022-10-10] MEDS ORDERED: VANCOMYCIN 1 GM VIAL ONE (23:05)
[2022-10-10 23:33] LABS: BASOPHILS % (AUTO) 0.5 %; HCT - HEMATOCRIT 37.1 % (37.0-47.0); HGB - HEMOGLOBIN 11.7 g/dL (12.0-16.0); LYMPHOCYTES % (AUTO) 40.1 %; MEAN CORPUSCULAR HEMOGLOBIN 28.2 pg (27.0-31.0); MEAN CORPUSCULAR HGB CONC 31.5 g/dL (32.0-36.0); MEAN CORPUSCULAR VOLUME 89.4 fL (81.0-99.0); MEAN PLATELET VOLUME 9.1 fL (7.9-10.8); MONOCYTES % (AUTO) 58.5 %; NEUTROPHILS % (AUTO) 0.9 %; PLT - PLATELET COUNT 158 10^3/uL (130-450); RED BLOOD COUNT 4.15 10^6/uL (4.20-5.40); RED CELL DISTRIBUTION WIDTH 14.6 % (12.0-15.0); WHITE BLOOD COUNT 2.1 x10^3/uL (4.8-10.8)
[2022-10-10 23:38] LABS: ABNORMAL LYMPHS % (MANUAL) 0 %; BAND NEUTROPHILS % (MANUAL) 0 %
[2022-10-10 23:50] LABS: BASOPHILS % (MANUAL) 1 %; EOSINOPHILS # (MANUAL) 0.1 10^3/uL (0-0.7); LYMPHOCYTES # (MANUAL) 1.2 10^3/uL (1.5-3.5); LYMPHOCYTES % (MANUAL) 56 %; MONOCYTES # (MANUAL) 0.8 10^3/uL (0.0-1.0)
[2022-10-10 23:51] LABS: DIFFERENTIAL COMMENT MANUAL DIFFERENTIAL; PLATELET ESTIMATE, MANUAL NORMAL (130-450,000) (NORMAL); PLATELET MORPHOLOGY NORMAL APPEARANCE (NORMAL); RBC MORPHOLOGY (MULTIPLE) NORMAL APPEARANCE (NORMAL); WBC MORPHOLOGY (MULTIPLE) NORMAL APPEARANCE (NORMAL)
[2022-10-11] MEDS: AZTREONAM 2 GM in SODIUM CHLORIDE 0.9% MINIBAG 100 ML IV SCH (05:30)
[2022-10-11] MEDS ORDERED: CEFEPIME 2 GM in SODIUM CHLORIDE 0.9% MINIBAG 100 ML IV SCH (09:00)
--- NOTE | 2022-10-11 13:03 | ED Physician Documentation ---
ED Addendum - Addendum Addendum: Patient signed out to me at shift change. She has neutropenic fever.On review of her work-up it appears that she has pneumonia. She has been started on broad- spectrum antibiotics. Patient denies any complaints when I had seen her at the bedside this morning. 10/11/22 13:[address] Crowder. She will admit the patient for further management when she confirms that we do indeed do bone marrow biopsies here. Departure - Departure Disposition: [facility] DC/Xfer Clinical Impression: Neutropenic fever, HCAP (healthcare-associated pneumonia) Discharge Date/Time: 10/11/22 15:50
[2022-10-11] MEDS ORDERED: SODIUM CHLORIDE FLUSH 0.9% 10 ML SYRINGE IVP PRN (14:39)
[2022-10-11] MEDS ORDERED: ONDANSETRON 4 MG/2 ML VIAL IVP PRN (14:39)
[2022-10-11] MEDS: SODIUM CHLORIDE FLUSH 0.9% 10 ML SYRINGE IVP SCH (16:23)
[2022-10-11] MEDS: SODIUM CHLORIDE 0.9% 1,000 ML IV SCH (16:23)
--- NOTE | 2022-10-11 16:26 | HISTORY & PHYSICAL EXAMINATION ---
Chief Complaint - Chief Complaint Chief Complaint: Feels unwell for 3-4 days History of Present Illness - Admitted From Admitted From:: ED - History Obtained From History obtained from: ED provider - History of Present Illness HPI Comment/Other: This is a 82-year-old female who has a history of rheumatoid arthritis on methotrexate and prednisone and history of COPD. She was admitted here 2 months ago with respiratory failure, a pneumonia, and needed to be on a ventilator. The patient presented to the emergency room last night complaining of being "unwell for the last 3 to 4 days". When EMS picked her up they noted a temperature of 102.7 F. In the ED she had a documented fever of 38.5 degrees C. She was tachycardic. Her white count was remarkably low at 1.4 with 0 absolute neutrophil count. This is entirely new for her, she has never had neutropenia before even on her immunosuppressants. Work-up to look for source of fever included a chest x-ray that shows a right lower lobe infiltrate. CT of the abdomen also reported that the lower part of the right lung had groundglass abnormalities. The night ED provider reached out to the Telemedicine doctor for admission, but he advised getting input first from Chest Painting And Sealing Supervisor before the patient be admitted here. Hematology was consulted who stated that the patient could be admitted here and managed as a neutropenic fever and then to have Hematology management as an outpatient. The patient had blood cultures done and then has been started on broad-spectrum IV antibiotics, IV Aztreonam, IV Flagyl and IV Cefepime. The ED provider spoke to me for admitting this patient to manage neutropenic fever and healthcare associated pneumonia (given the hospitaliation <90 days ago), in a patient who is immunosuppressed from medications being taken for rheumatoid arthritis. History - Past Medical History Cardiovascular: reports: None, Other Respiratory: reports: Pneumonia, Other Neuro: reports: None Endocrine/Autoimmune: reports: Other GI: reports: GERD, Chronic diarrhea, Chronic constipation, Other HULL DRAFTER: reports: Other : reports: Incontinence HEENT: reports: Chronic vision loss Psych: reports: None Musculoskeletal: reports: Rheumatoid arthritis Derm: reports: Other MRSA Hx?: No - Past Surgical History General: reports: Cholecystectomy, Appendectomy, Bowel surgery, Colonoscopy Ortho: reports: Arthroscopic surgery /HULL DRAFTER: reports: Hysterectomy HEENT: reports: Cataracts Derm: reports: Skin cancer surgery - Family & Social History Family History Comment/Other: She reports family history of diabetes otherwise no medical history to her knowledge. Living Situation: With spouse/s.o., Other (She is typically able to do her own ADLs and lives with her . 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 Moved to [facility] in 2001 after she retired. She did smoke for 13 years but quit at the age of 31. She denies any alcohol use. She is independent with her ADLs. - Substance History Use: Uses substance without health or social issues: NONE - POLST Patient has POLST: No POLST Status: Full Code Meds/Allgy - Home Medications Home Medications: Ambulatory Orders Medication Instructions Recorded Confirmed predniSONE [Deltasone] 5 mg PO DAILY 12/20/12 08/26/22 Acetaminophen [Tylenol] 650 mg PO Q4HR PRN tab 09/06/22 Albuterol 2.5 mg INH Q2HR PRN ml 09/06/22 Budesonide [Pulmicort] 0.5 mg INH RTBID ml 09/06/22 Ciprofloxacin [Cipro] 500 mg PO BID tab 09/06/22 Famotidine [Pepcid] 20 mg PO BID tab 09/06/22 Formoterol Fumarate [Perforomist] 20 mcg INH RTBID ml 09/06/22 Ipratropium/Albuterol [Duoneb] 3 ml INH RTTID ml 09/06/22 Methotrexate Sodium/Pf 25 mg SUBQ MO #0 09/06/22 08/26/22 [Methotrexate 50 mg/2 ml Vial] Montelukast [Singulair] 10 mg PO QPM tab 09/06/22 Multivitamin [Theragran] 1 tab PO DAILY tab 09/06/22 Propranolol ER [Inderal LA] 80 mg PO DAILY #0 09/06/22 08/26/22 Saccharomyces Boulardii [Florastor] 250 mg PO BIDWM cap 09/06/22 Zinc Oxide 20% Oint [Zinc Oxide] 1 applic TOP PRN PRN each 09/06/22 predniSONE [Deltasone] 5 mg PO DAILYWM tab 09/06/22 - Allergies Allergies/Adverse Reactions: Allergies Allergy/AdvReac Type Severity Reaction Status Date / Time meperidine HCl * AdvReac Unknown Hallucinati Verified 08/25/22 15:36 [From Demerol] ons morphine AdvReac Unknown Dizziness Verified 08/25/22 15:36 Penicillins AdvReac Unknown Unknown Verified 10/11/22 07:21 Sulfa (Sulfonamide AdvReac Unknown Rash Verified 08/25/22 15:36 Antibiotics) tetracycline AdvReac Unknown Rash Verified 08/25/22 15:36 Exam - Vital Signs Vital Signs: Vital Signs x48h Temp Pulse Pulse Resp BP BP Pulse Ox 10/11/22 15:45 37.7 C 112 H 24 132/57 H 93 10/11/22 14:02 112 H 22 137/60 H 10/11/22 13:17 107 H 24 136/67 H 96 10/11/22 12:50 109 H 28 H 111/61 96 10/11/22 12:21 37.4 C 110 H 28 H 111/61 97 10/11/22 11:45 109 H 26 H 128/58 L 95 10/11/22 11:00 111 H 26 H 128/58 L 95 10/11/22 09:00 109 H 32 H 113/58 L 97 - Physical Exam General Appearance: positive: No acute distress, Lethargic Eyes Bilateral: positive: No lid inflammation ENT: positive: ENT inspection nml, No signs of dehydration Neck: positive: Nml inspection Respiratory: positive: No respiratory distress, Breath sounds nml Cardiovascular: positive: Regular rate & rhythm, Systolic murmur Abdomen: positive: Non-tender, Nml bowel sounds, No distention Skin: positive: Warm, Dry Extremities: positive: Non-tender, Other (Trace edema) Neurologic/Psychiatric: positive: Other (Lethargic, moves all extremities spontaneously, is poor historian) Conclusion/Plan - Problem List (1) Neutropenic fever Conclusion/Plan: This is concerning and that she may have an underlying bone marrow pathology however currently we will treat it as a neutropenic fever, presumably white blood count dropped due to the significant infection. The source appears to be pneumonia Plan: We will plan neutropenic precautions for her food and environment Continue with broad-spectrum antibiotics (see #2). Follow CBC daily In case her WBC does not recover after treatment of the infection, she would need a bone marrow biopsy. That procedure is available here, done with IR (I personally called Dr. Smith, today's radiologist, to check on this today) (2) HCAP During her last hospitalization 2 months ago the patient grew MSSA and Pseudomonas out of her sputum. Plan: Given the recent hospitalization (less than 90 days ago), we will treat with broad-spectrum antibiotics for a healthcare associated pneumonia, especially since her last sputum culture grew Pseudomonas. We will therefore continue with IV cefepime and IV Flagyl, in case of aspiration (anaerobes). This was discussed with Douglas in pharmacy. Order sputum for culture Await blood culture result Tailor antibiotics as the culture results come back Start probiotics when ANC rises (3) COPD without exacerbation Impression: Caused by her respiratory failure from PNA has a chronic wet cough She does not have a history of COPD in the past, being a former smoker. Her Echo done here last admission, showed Cor Pulmonale Plan: Will start oral Mucinex for pulmonary toilet Continue with any inhalers or nebulized meds that she may be on, await for the medication list to be reconciled by pharmacy (4) Generalized weakness Assessment/Plan: Patient needed more PT and OT and was discharged to a SNF after the last hospiatization. Plan: Will order PT and OT to start, to prevent deconditioning (5) Severe protein-calorie malnutrition Assessment/Plan: On examination, I first suspected that she was exhausted and too tired to eat from work of breathing. Then on the last hospiutaliztiom she told me she eats very little because "her grandfather of Diabetes and she may get Diabetes". Also, one of her nurses mentioned that the patient is not interested in eating because she does not want aggressive management and wants to "go be with her sister who is in [facility]". 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 Plan: Hold Methotrexate Cont oral folic acid We will continue with her low-dose prednisone 5 mg daily, will not increase the dose since there is no wheezing. We will not stop it however to not promote an Addisonian crisis (7) Cor Pulmonale Echo done 2 mos ago here showed normal LV size and EF 60%, with diastolic dysfnc present, RA and RV enlargement with normal RV funtion, and elevated PA pressure of about 45 mmHg. (8) Rheumatoid Arthritis Plan: We are holding home medication, Methotrexate d/t its immunosuppresion, but her Prednisone is to be continued (9) Essential Tremor Plan: We order her home medication Propranolol LA - Lab Results Fish Bones: 10/11/22 16:45 10/11/22 16:45 - Diagnostic Imaging Results Diagnostic Imaging Results: positive: Final report reviewed - Other Other Results/Comments: Attestation: The patient is expected to stay greater than 2 midnights and expected to be discharged or transferred to another facility within 96 hours: Yes
[2022-10-11] MEDS ORDERED: ALBUTEROL NEB 2.5 MG/3 ML INH PRN (16:47)
[2022-10-11] MEDS ORDERED: IPRATROPIUM/ALBUTEROL 3 ML NEB INH PRN (16:48)
[2022-10-11 16:52] LABS: EOSINOPHILS % (AUTO) 0.5 %; HGB - HEMOGLOBIN 12.7 g/dL (12.0-16.0); LYMPHOCYTES % (AUTO) 46.6 %; MEAN CORPUSCULAR HEMOGLOBIN 27.8 pg (27.0-31.0); MEAN CORPUSCULAR HGB CONC 30.2 g/dL (32.0-36.0); MEAN CORPUSCULAR VOLUME 91.9 fL (81.0-99.0); MEAN PLATELET VOLUME 9.3 fL (7.9-10.8); NEUTROPHILS % (AUTO) 0.9 %; PLT - PLATELET COUNT 148 10^3/uL (130-450); RED BLOOD COUNT 4.57 10^6/uL (4.20-5.40); RED CELL DISTRIBUTION WIDTH 14.7 % (12.0-15.0)
[2022-10-11 17:00] LABS: ABNORMAL LYMPHS % (MANUAL) 0 %; BAND NEUTROPHILS % (MANUAL) 0 %
[2022-10-11] MEDS ORDERED: SACCHAROMYCES BOULARDII 250 MG CAPSULE PO SCH (17:00)
[2022-10-11 17:05] LABS: BILIRUBIN,TOTAL 0.9 mg/dL (0.2-1.0); CALCIUM 8.7 mg/dL (8.5-10.3); CREATININE 0.3 mg/dL (0.4-1.0); POTASSIUM 3.1 mmol/L (3.5-5.0)
[2022-10-11 17:22] LABS: LYMPHOCYTES % (MANUAL) 19 %; MONOCYTES # (MANUAL) 0.9 10^3/uL (0.0-1.0); REACTIVE LYMPHS % (MANUAL) 33 %
[2022-10-11 17:23] LABS: PLATELET ESTIMATE, MANUAL NORMAL (130-450,000) (NORMAL); PLATELET MORPHOLOGY NORMAL APPEARANCE (NORMAL); RBC MORPHOLOGY (MULTIPLE) NORMAL APPEARANCE (NORMAL)
[2022-10-11 17:25] LABS: DIFFERENTIAL COMMENT MANUAL DIFFERENTIAL
[2022-10-11] MEDS: MONTELUKAST 10 MG TABLET PO SCH (21:13)
[2022-10-11] MEDS: guaiFENesin 600 MG TABLET PO SCH (21:13)
[2022-10-11] MEDS: ACETAMINOPHEN 325 MG TABLET PO PRN (21:13)
[2022-10-11] MEDS: CEFEPIME 2 GM in SODIUM CHLORIDE 0.9% MINIBAG 100 ML IV SCH (21:14)
[2022-10-11] MEDS: BUDESONIDE 0.5 MG/2 ML NEB INH SCH (22:40)
[2022-10-12] MEDS: SODIUM CHLORIDE FLUSH 0.9% 10 ML SYRINGE IVP SCH ×3 (00:40→16:22)
[2022-10-12] MEDS: ZINC OXIDE 20% OINT 30 GM TUBE TOP PRN ×2 (00:57→05:58)
[2022-10-12] MEDS: SODIUM CHLORIDE 0.9% 1,000 ML IV SCH ×2 (05:56→16:11)
[2022-10-12] MEDS: ACETAMINOPHEN 325 MG TABLET PO PRN ×2 (05:56→20:29)
[2022-10-12] MEDS: BUDESONIDE 0.5 MG/2 ML NEB INH SCH ×2 (07:30→23:45)
[2022-10-12] MEDS: CEFEPIME 2 GM in SODIUM CHLORIDE 0.9% MINIBAG 100 ML IV SCH ×2 (08:49→20:29)
[2022-10-12] MEDS: PROPRANOLOL ER 80 MG CAPSULE PO SCH (08:59)
[2022-10-12] MEDS: predniSONE 5 MG TABLET PO SCH (09:00)
[2022-10-12] MEDS: guaiFENesin 600 MG TABLET PO SCH ×2 (09:00→20:29)
[2022-10-12] MEDS: MULTIVITAMIN TABLET PO SCH (09:00)
[2022-10-12 09:01] LABS: BASOPHILS % (AUTO) 0.8 %; HCT - HEMATOCRIT 34.8 % (37.0-47.0); HGB - HEMOGLOBIN 10.9 g/dL (12.0-16.0); LYMPHOCYTES % (AUTO) 33.8 %; MEAN CORPUSCULAR HEMOGLOBIN 27.9 pg (27.0-31.0); MEAN CORPUSCULAR HGB CONC 31.3 g/dL (32.0-36.0); MEAN PLATELET VOLUME 9.3 fL (7.9-10.8); MONOCYTES % (AUTO) 63.1 %; NEUTROPHILS % (AUTO) 2.3 %; PLT - PLATELET COUNT 140 10^3/uL (130-450); RED BLOOD COUNT 3.91 10^6/uL (4.20-5.40); RED CELL DISTRIBUTION WIDTH 14.8 % (12.0-15.0)
[2022-10-12 09:06] LABS: CALCIUM 8.3 mg/dL (8.5-10.3); CREATININE 0.4 mg/dL (0.4-1.0); POTASSIUM 2.6 mmol/L (3.5-5.0)
[2022-10-12 09:07] LABS: ABNORMAL LYMPHS % (MANUAL) 0 %; BAND NEUTROPHILS % (MANUAL) 0 %
[2022-10-12 09:15] LABS: WHITE BLOOD COUNT 1.3 x10^3/uL (4.8-10.8)
[2022-10-12 09:31] LABS: EOSINOPHILS # (MANUAL) 0.1 10^3/uL (0-0.7); LYMPHOCYTES # (MANUAL) 0.5 10^3/uL (1.5-3.5); LYMPHOCYTES % (MANUAL) 28 %; MONOCYTES # (MANUAL) 0.8 10^3/uL (0.0-1.0); REACTIVE LYMPHS % (MANUAL) 8 %
[2022-10-12 09:33] LABS: DIFFERENTIAL COMMENT MANUAL DIFFERENTIAL
[2022-10-12] MEDS ORDERED: POTASSIUM CHLORIDE INJ 40 MEQ in SODIUM CHLORIDE 0.9% 500 ML IV ONE (10:00)
[2022-10-12] MEDS: FOLIC ACID 1 MG TABLET PO SCH (10:36)
[2022-10-12] MEDS: POTASSIUM CHLOR 10 MEQ/100 ML 10 MEQ/100 ML BAG IV SCH ×4 (11:59→18:43)
[2022-10-12] MEDS: POTASSIUM CHLORIDE 20 MEQ/15 ML UDC PO SCH (11:59)
[2022-10-12] MEDS ORDERED: levoFLOXacin 750 MG/150 ML 750 MG/150 ML BAG IV SCH (12:00)
[2022-10-12] MEDS ORDERED: VANCOMYCIN INJ 1 GM, VANCOMYCIN INJ 250 MG in SODIUM CHLORIDE 0.9% 500 ML IV ONE ×2 (13:00→16:00)
--- NOTE | 2022-10-12 20:07 | PROVIDER PROGRESS NOTE ---
Assessment/Plan - Problem List (1) Neutropenic fever Assessment/Plan: This is concerning and that she may have an underlying bone marrow pathology however currently we will treat it as a neutropenic fever, presumably white blood count dropped due to the significant infection. The source appears to be pneumonia Plan: We will plan neutropenic precautions for her food and environment Continue with broad-spectrum antibiotics (see #2). Follow CBC daily In case her WBC does not recover after treatment of the infection, she would need a bone marrow biopsy. That procedure is available here, done with IR (I personally called Dr. Smith, today's radiologist, to check) (2) HCAP During her last hospitalization 2 months ago the patient grew MSSA and Pseudomonas out of her sputum. Plan: Given the recent hospitalization (less than 90 days ago), we will treat with broad-spectrum antibiotics for a healthcare associated pneumonia, especially since her last sputum culture grew Pseudomonas. We will therefore continue with IV cefepime and IV Flagyl, in case of aspiration (anaerobes). Plan: After discussion with today's pharmacist, will also start Vanco in case of MRSA and Levaquin in case of Pseudomonas Order sputum for culture Await blood culture result Tailor antibiotics as the culture results come back Start probiotics when ANC rises (3) COPD without exacerbation Impression: Caused by her respiratory failure from PNA has a chronic wet cough She does not have a history of COPD in the past, being a former smoker. Her Echo done here last admission, showed Cor Pulmonale Plan: Will start oral Mucinex for pulmonary toilet Continue with any inhalers or nebulized meds that she may be on, await for the medication list to be reconciled by pharmacy (4) Generalized weakness Assessment/Plan: Patient needed more PT and OT and was discharged to a SNF after the last hospiatization. Plan: Will order PT and OT to start, to prevent deconditioning (5) Severe protein-calorie malnutrition Assessment/Plan: On examination, I first suspected that she was exhausted and too tired to eat from work of breathing. Then on the last hospiutaliztiom she told me she eats ve ry little because "her grandfather of Diabetes and she may get Diabetes". Also, one of her nurses mentioned that the patient is not interested in eating because she does not want aggressive management and wants to "go be with her [place] who [place]". 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 Plan: Hold Methotrexate Cont oral folic acid We will continue with her low-dose prednisone 5 mg daily, will not increase the dose since there is no wheezing. We will not stop it however to not promote an Addisonian crisis (7) Cor Pulmonale Echo done 2 mos ago here showed normal LV size and EF 60%, with diastolic dysfnc present, RA and RV enlargement with normal RV funtion, and elevated PA pressure of about 45 mmHg. (8) Rheumatoid Arthritis Plan: We are holding home medication, Methotrexate d/t its immunosuppresion, but her Prednisone is to be continued (9) Essential Tremor Plan: We order her home medication Propranolol LA - Current Meds Current Meds: Current Medications Generic Name Dose Route Start Last Admin Trade Name Freq PRN Reason Stop Dose Admin Acetaminophen 650 mg 10/11/22 14:39 10/12/22 05:56 Acetaminophen 325 Mg Tablet PO 650 mg Q4HR PRN Administration Pain 1 to 4, or Fever Albuterol 2.5 mg 10/11/22 16:47 10/12/22 07:29 Albuterol Neb 2.5 Mg/3 Ml INH 2.5 mg Q2HR PRN Administration Wheezing Budesonide 0.5 mg 10/11/22 19:00 10/12/22 07:30 Budesonide 0.5 Mg/2 Ml Neb INH 0.5 mg RTBID REGI Administration Folic Acid 1 mg 10/12/22 09:00 10/12/22 10:36 Folic Acid 1 Mg Tablet PO 1 mg DAILY REGI Administration Guaifenesin 600 mg 10/11/22 21:00 10/12/22 09:00 Guaifenesin 600 Mg Tablet PO 600 mg BID REGI Administration Sodium Chloride 1,000 mls @ 100 mls/hr 10/11/22 15:00 10/12/22 16:11 Normal Saline 0.9% IV 0 mls/hr .Q10H REGI Infusion Cefepime HCl 2 gm/ Sodium 100 mls @ 200 mls/hr 10/11/22 21:00 10/12/22 10:20 Chloride IV Infused BID REGI Infusion Metronidazole 500 mg in 100 mls @ 100 mls/hr 10/11/22 17:00 10/12/22 18:40 Flagyl 500 Mg/100 Ml IV Infused Q8H REGI Infusion Levofloxacin 750 mg in 150 mls @ 100 mls/hr 10/12/22 12:00 10/12/22 17:39 Levaquin 750 Mg/150 Ml IV Infused Q48H REGI Infusion Montelukast Sodium 10 mg 10/11/22 21:00 10/11/22 21:13 Montelukast 10 Mg Tablet PO 10 mg QPM REGI Administration Multi-Ingredient Ointment 1 applic 10/12/22 00:04 10/12/22 05:58 Zinc Oxide 20% Oint 30 Gm Tube TOP 1 applic PRN PRN Administration Skin Care Multivitamins 1 tab 10/12/22 09:00 10/12/22 09:00 Multivitamin Tablet PO 1 tab DAILY REGI Administration Potassium Chloride 20 meq 10/12/22 10:00 10/12/22 11:59 Potassium Chloride 20 Meq/15 Ml Udc PO 20 meq DAILYWM REGI Administration Prednisone 5 mg 10/12/22 09:00 10/12/22 09:00 Prednisone 5 Mg Tablet PO 5 mg DAILY REGI Administration Propranolol HCl 80 mg 10/12/22 09:00 10/12/22 08:59 Propranolol Er 80 Mg Capsule PO 80 mg DAILY REGI Administration Sodium Chloride 10 ml 10/11/22 17:00 10/12/22 16:22 Sodium Chloride Flush 0.9% 10 Ml Syringe IVP 10 ml 0100,0900,1700 REGI Administration - Lab Result Fish Bone Diagrams: 10/13/22 05:20 10/13/22 05:20 - Additional Planning My Orders: My Active Orders 10/11/22 21:00 Cefepime 2 gm Sodium Chloride 0.9% Minibag [Normal Saline 0.9% Minibag] 100 ml IV BID Montelukast [Singulair] 10 mg PO QPM guaiFENesin [Mucinex] 600 mg PO BID 10/12/22 00:04 Zinc Oxide 20% Oint [Zinc Oxide] 1 applic TOP PRN PRN 10/12/22 09:00 Folic Acid 1 mg PO DAILY Multivitamin [Theragran] 1 tab PO DAILY Propranolol ER [Inderal LA] 80 mg PO DAILY predniSONE [Deltasone] 5 mg PO DAILY 10/12/22 10:00 Potassium Chloride Oral Soln [Potassium Chloride] 20 meq PO DAILYWM 10/12/22 12:00 levoFLOXacin 750 MG/150 ML [Levaquin 750 mg/150 ml] 750 mg in 150 ml IV Q48H 10/12/22 Dinner DIET [Neutropenic (Low Microbial) Diet] [DIET] 10/13/22 05:00 BMP - BASIC METABOLIC PANEL [CHEM] DAILYLAB CBC - COMP BLD CT W/AUTO DIFF [HEME] DAILYLAB MAGNESIUM [CHEM] DAILYLAB 10/13/22 16:00 Vancomycin Inj [Vancomycin] 1 gm Sodium Chloride 0.9% [Normal Saline 0.9%] 250 ml IV Q24H 10/13/22 18:00 VANCOMYCIN PEAK [CHEM] Timed 10/14/22 05:00 BMP - BASIC METABOLIC PANEL [CHEM] DAILYLAB CBC - COMP BLD CT W/AUTO DIFF [HEME] DAILYLAB 10/14/22 15:00 VANCOMYCIN TROUGH [CHEM] Timed 10/15/22 05:00 BMP - BASIC METABOLIC PANEL [CHEM] DAILYLAB CBC - COMP BLD CT W/AUTO DIFF [HEME] DAILYLAB 10/16/22 05:00 BMP - BASIC METABOLIC PANEL [CHEM] DAILYLAB CBC - COMP BLD CT W/AUTO DIFF [HEME] DAILYLAB Subjective - Subjective Patient Reports: Resting Comfortably Nursing Reports: Other (Refuses any food or liquids) Objective Vital Signs: Vital Signs - 24 hr 10/11/22 10/11/22 10/11/22 20:29 22:14 23:57 Temperature 37.9 C 37.9 C 37.5 C Heart Rate Heart Rate [ 109 H 70 Brachial] Heart Rate [ Sitting] Heart Rate [ Standing] Heart Rate [ Supine] Respiratory 26 H 16 Rate Blood Pressure 90/55 L [Left Brachial artery] Blood Pressure 131/50 H [Right Brachial artery] Blood Pressure [Sitting] Blood Pressure [Standing] Blood Pressure [Supine] O2 Saturation 95 94 10/12/22 10/12/22 10/12/22 00:00 02:51 05:00 Temperature 38.2 C H Heart Rate Heart Rate [ 96 Brachial] Heart Rate [ Sitting] Heart Rate [ Standing] Heart Rate [ Supine] Respiratory 22 16 Rate Blood Pressure 110/55 L [Left Brachial artery] Blood Pressure 144/52 H [Right Brachial artery] Blood Pressure [Sitting] Blood Pressure [Standing] Blood Pressure [Supine] O2 Saturation 93 10/12/22 10/12/22 10/12/22 07:33 07:48 11:25 Temperature 37.2 C Heart Rate 83 Heart Rate [ 86 Brachial] Heart Rate [ 72 Sitting] Heart Rate [ 76 Standing] Heart Rate [ 70 Supine] Respiratory 21 24 Rate Blood Pressure [Left Brachial artery] Blood Pressure 113/47 L [Right Brachial artery] Blood Pressure 109/51 L [Sitting] Blood Pressure 102/55 L [Standing] Blood Pressure 104/50 L [Supine] O2 Saturation 93 10/12/22 10/12/22 10/12/22 11:35 12:18 15:41 Temperature 36.9 C 37.0 C Heart Rate Heart Rate [ 68 71 Brachial] Heart Rate [ 72 Sitting] Heart Rate [ 76 Standing] Heart Rate [ 70 Supine] Respiratory 18 24 Rate Blood Pressure 98/46 L 100/45 L [Left Brachial artery] Blood Pressure [Right Brachial artery] Blood Pressure 109/51 L [Sitting] Blood Pressure 102/55 L [Standing] Blood Pressure 104/50 L [Supine] O2 Saturation 96 96 Oxygen O2 Source Room air I&O (Last 24 Hrs): Intake and Output Totals x24h 10/10/22 10/11/22 10/12/22 23:59 23:59 23:59 Intake Total 700 9396.378 3824.000 Output Total 250 Balance 700 4576.578 3169.000 General: Other (Lethargic, awakens to her name, answers one-word answers and falls asleep) HEENT: Other (Dry mucosa) Neck: Supple Neuro: Non Focal, Other (Lethargic and weak) Cardiovascular: No murmurs Respiratory: Wheezes (Has mild tachypnea) Abdomen: Normal bowel sounds, Soft, No tenderness Extremities: No clubbing, No edema, No tenderness/swelling - Results Results: Laboratory Results WBC 1.3 x10^3/uL (4.8-10.8) L* 10/12/22 08:51 RBC 3.91 10^6/uL (4.20-5.40) L 10/12/22 08:51 Hgb 10.9 g/dL (12.0-16.0) L 10/12/22 08:51 Hct 34.8 % (37.0-47.0) L 10/12/22 08:51 MCV 89.0 fL (81.0-99.0) 10/12/22 08:51 MCH 27.9 pg (27.0-31.0) 10/12/22 08:51 MCHC 31.3 g/dL (32.0-36.0) L 10/12/22 08:51 RDW 14.8 % (12.0-15.0) 10/12/22 08:51 Plt Count 140 10^3/uL (130-450) 10/12/22 08:51 MPV 9.3 fL (7.9-10.8) 10/12/22 08:51 Neut # (Auto) [employer] 10/12/22 08:51 Lymph # (Auto) [employer] 10/12/22 08:51 [place] # (Auto) [employer] 10/12/22 08:51 Eos # (Auto) [employer] 10/12/22 08:51 Baso # (Auto) [employer] 10/12/22 08:51 Absolute Nucleated RBC [employer] 10/12/22 08:51 Total Counted 50 10/12/22 08:51 Band Neuts % (Manual) 0 % (0-10) 10/12/22 08:51 Reactive Lymphs % (Man) 8 % 10/12/22 08:51 Abnorm Lymph % (Manual) 0 % 10/12/22 08:51 Nucleated RBC % [employer] 10/12/22 08:51 Neutrophils # (Manual) 0.0 10^3/uL (1.5-6.6) L* 10/12/22 08:51 Lymphocytes # (Manual) 0.5 10^3/uL (1.5-3.5) L 10/12/22 08:51 Monocytes # (Manual) 0.8 10^3/uL (0.0-1.0) 10/12/22 08:51 Eosinophils # (Manual) 0.1 10^3/uL (0-0.7) 10/12/22 08:51 Basophils # (Manual) 0.0 10^3/uL (0-0.1) 10/12/22 08:51 Differential Comment MANUAL DIFFERENTIAL 10/12/22 08:51 Manual Slide Review Indicated 05/15/23 20:05 WBC Morphology NORMAL APPEARANCE (NORMAL) 10/10/22 23:28 Platelet Estimate NORMAL (130-450,000) (NORMAL) 10/11/22 16:45 Platelet Morphology NORMAL APPEARANCE (NORMAL) 10/11/22 16:45 RBC Morph Micro Appear NORMAL APPEARANCE (NORMAL) 10/11/22 16:45 Sodium 140 mmol/L (135-145) 10/12/22 08:51 Potassium 2.6 mmol/L (3.5-5.0) L 10/12/22 08:51 Chloride 111 mmol/L (101-111) 10/12/22 08:51 Carbon Dioxide 19 mmol/L (21-32) L 10/12/22 08:51 Anion Gap 10.0 (6-13) 10/12/22 08:51 BUN 16 mg/dL (6-20) 10/12/22 08:51 Creatinine 0.4 mg/dL (0.4-1.0) 10/12/22 08:51 Estimated GFR (MDRD) 152 (>89) 10/12/22 08:51 Glucose 97 mg/dL (70-100) 10/12/22 08:51 Lactic Acid 1.4 mmol/L (0.5-2.2) 10/10/22 20:05 Calcium 8.3 mg/dL (8.5-10.3) L 10/12/22 08:51 Total Bilirubin 0.9 mg/dL (0.2-1.0) 10/11/22 16:45 AST 27 IU/L (10-42) 10/11/22 16:45 ALT 34 IU/L (10-60) 10/11/22 16:45 Alkaline Phosphatase 53 IU/L (42-121) 10/11/22 16:45 Total Protein 6.0 g/dL (6.7-8.2) L 10/11/22 16:45 Albumin 3.0 g/dL (3.2-5.5) L 10/11/22 16:45 Globulin 3.0 g/dL (2.1-4.2) 10/11/22 16:45 Albumin/Globulin Ratio 1.0 (1.0-2.2) 10/11/22 16:45 Lipase 31 U/L (22-51) 10/10/22 20:05 TSH 1.07 uIU/mL (0.34-5.60) 10/10/22 20:05 Urine Color YELLOW 10/10/22 21:12 Urine Clarity CLOUDY (CLEAR) 10/10/22 21:12 Urine pH 7.0 PH (5.0-7.5) 10/10/22 21:12 Ur Specific [place] 1.015 (1.002-1.030) 10/10/22 21:12 Urine Protein NEGATIVE mg/dL (NEGATIVE) 10/10/22 21:12 Urine Glucose (UA) NEGATIVE mg/dL (NEGATIVE) 10/10/22 21:12 Urine Ketones 15 mg/dL (NEGATIVE) H 10/10/22 21:12 Urine Occult Blood NEGATIVE (NEGATIVE) 10/10/22 21:12 Urine Nitrite NEGATIVE (NEGATIVE) 10/10/22 21:12 Urine Bilirubin NEGATIVE (NEGATIVE) 10/10/22 21:12 Urine Urobilinogen 0.2 (NORMAL) E.U./dL (NORMAL) 10/10/22 21:12 Ur Leukocyte Esterase NEGATIVE (NEGATIVE) 10/10/22 21:12 Urine RBC 0-5 /HPF (0-5) 10/10/22 21:12 Urine WBC 0-3 /HPF (0-5) 10/10/22 21:12 Ur Squamous Epith Cells MANY Squamous (<= Few) H 10/10/22 21:12 Amorphous Sediment Marked /LPF 10/10/22 21:12 Urine Bacteria None Seen /HPF (None Seen) 10/10/22 21:12 Ur Microscopic Review INDICATED 10/10/22 21:12 Urine Culture Comments NOT INDICATED 10/10/22 21:12 Nasal Adenovirus (PCR) NOT DETECTED 10/10/22 19:43 Nasal B. parapertussis DNA (PCR) NOT DETECTED 10/10/22 19:43 Nasal Coronavir 229E PCR NOT DETECTED 10/10/22 19:43 Nasal Coronavir HKU1 PCR NOT DETECTED 10/10/22 19:43 Nasal Coronavir NL63 PCR NOT DETECTED 10/10/22 19:43 Nasal Coronavir OC43 PCR NOT DETECTED 10/10/22 19:43 Nasal Enterovir/Rhinovir PCR NOT DETECTED 10/10/22 19:43 Nasal Influenza B PCR NOT DETECTED 10/10/22 19:43 Nasal Influenza A PCR NOT DETECTED 10/10/22 19:43 Nasal Parainfluen 1 PCR NOT DETECTED 10/10/22 19:43 Nasal Parainfluen 2 PCR NOT DETECTED 10/10/22 19:43 Nasal Parainfluen 3 PCR NOT DETECTED 10/10/22 19:43 Nasal Parainfluen 4 PCR NOT DETECTED 10/10/22 19:43 Nasal RSV (PCR) NOT DETECTED 10/10/22 19:43 Nasal B.pertussis DNA PCR NOT DETECTED 10/10/22 19:43 Nasal C.pneumoniae (PCR) NOT DETECTED 10/10/22 19:43 Oscar Human Metapneumo PCR NOT DETECTED 10/10/22 19:43 Nasal M.pneumoniae (PCR) NOT DETECTED 10/10/22 19:43 Nasal SARS-CoV-2 (PCR) NOT DETECTED 10/10/22 19:43 - Procedures Procedures: Procedures INSERTION OF ENDOTRACHEAL AIRWAY INTO TRACHEA, VIA OPENING (08/25/22) INSERTION OF INFUSION DEV INTO SUP VENA CAVA, PERC APPROACH (08/25/22) RESPIRATORY VENTILATION, 24-96 CONSECUTIVE HOURS (08/25/22)
[2022-10-12] MEDS: MONTELUKAST 10 MG TABLET PO SCH (20:29)
[2022-10-13] MEDS: SODIUM CHLORIDE FLUSH 0.9% 10 ML SYRINGE IVP SCH ×3 (00:34→17:08)
[2022-10-13] MEDS: SODIUM CHLORIDE 0.9% 1,000 ML IV SCH ×3 (05:19→19:33)
[2022-10-13 05:27] LABS: HCT - HEMATOCRIT 38.3 % (37.0-47.0); HGB - HEMOGLOBIN 11.3 g/dL (12.0-16.0); LYMPHOCYTES % (AUTO) 38.2 %; MEAN CORPUSCULAR HEMOGLOBIN 27.8 pg (27.0-31.0); MEAN CORPUSCULAR HGB CONC 29.5 g/dL (32.0-36.0); MEAN CORPUSCULAR VOLUME 94.1 fL (81.0-99.0); MEAN PLATELET VOLUME 9.7 fL (7.9-10.8); MONOCYTES % (AUTO) 59.9 %; NEUTROPHILS % (AUTO) 0.7 %; PLT - PLATELET COUNT 164 10^3/uL (130-450); RED BLOOD COUNT 4.07 10^6/uL (4.20-5.40); RED CELL DISTRIBUTION WIDTH 14.9 % (12.0-15.0)
[2022-10-13 05:34] LABS: CALCIUM 8.5 mg/dL (8.5-10.3); CREATININE 0.4 mg/dL (0.4-1.0); MAGNESIUM 2.1 mg/dL (1.7-2.8); POTASSIUM 3.4 mmol/L (3.5-5.0)
[2022-10-13 05:41] LABS: ABNORMAL LYMPHS % (MANUAL) 0 %; BAND NEUTROPHILS % (MANUAL) 0 %; BASOPHILS % (AUTO) 0.6 %; WHITE BLOOD COUNT 1.6 x10^3/uL (4.8-10.8)
[2022-10-13 05:51] LABS: BASOPHILS % (MANUAL) 1 %; DIFFERENTIAL COMMENT MANUAL DIFFERENTIAL; LYMPHOCYTES % (MANUAL) 51 %; MONOCYTES # (MANUAL) 0.6 10^3/uL (0.0-1.0); PLATELET ESTIMATE, MANUAL NORMAL (130-450,000) (NORMAL); PLATELET MORPHOLOGY NORMAL APPEARANCE (NORMAL); RBC MORPHOLOGY (MULTIPLE) NORMAL APPEARANCE (NORMAL); REACTIVE LYMPHS % (MANUAL) 11 %; WBC MORPHOLOGY (MULTIPLE) NORMAL APPEARANCE (NORMAL)
[2022-10-13] MEDS: BUDESONIDE 0.5 MG/2 ML NEB INH SCH ×2 (07:00→23:20)
[2022-10-13] MEDS: CEFEPIME 2 GM in SODIUM CHLORIDE 0.9% MINIBAG 100 ML IV SCH ×2 (07:54→21:18)
[2022-10-13] MEDS: POTASSIUM CHLORIDE 20 MEQ/15 ML UDC PO SCH (07:57)
[2022-10-13] MEDS: MULTIVITAMIN TABLET PO SCH (09:06)
[2022-10-13] MEDS: PROPRANOLOL ER 80 MG CAPSULE PO SCH (09:07)
[2022-10-13] MEDS: guaiFENesin 600 MG TABLET PO SCH ×2 (09:07→21:18)
[2022-10-13] MEDS: FOLIC ACID 1 MG TABLET PO SCH (09:07)
[2022-10-13] MEDS: predniSONE 5 MG TABLET PO SCH (09:07)
--- NOTE | 2022-10-13 14:56 | PHARMACY PROGRESS NOTE ---
- Best Possible Medication History Admit Date and Time: 10/11/22 1439 Processed by: Pharmacy Medication History completed: Yes Patient Interview: Pt unable to participate Secondary Source(s): Previous admit records (Unable to reach (Called 3x), Shea ("adopted daughter") could not verbalize meds from partically cut off list, Unable to talk to MD office (Called 4x, on RN line and Advertising Display Rotator line[facility] As the person ultimately responsible for medication therapy, providers are able to order a medication from an existing home medication list in [facility] via the "Reconcile Routine" prior to Confirmation of that medication by production support developer. Such practice is discouraged except when the physician, in their clinical judgment, deems that a medical need exists for a medication without regard to previous use.
[2022-10-13] MEDS ORDERED: VANCOMYCIN INJ 1 GM in SODIUM CHLORIDE 0.9% 250 ML IV SCH (16:00)
--- NOTE | 2022-10-13 16:34 | PROVIDER PROGRESS NOTE ---
Assessment/Plan - Problem List (1) Neutropenic fever Assessment/Plan: This is concerning and that she may have an underlying bone marrow pathology however currently we will treat it as a neutropenic fever, presumably white blood count dropped due to the significant infection. The source appears to be pneumonia Plan: We planned neutropenic precautions for her food and environment, but she wants comfort care, so we may allow comfort feeding. Continue with broad-spectrum antibiotics (see #3), until DCh In case her WBC does not recover after treatment of the infection, she would have needed a bone marrow biopsy. That procedure is available here, done with IR. Will no longer plan that W/U, as she and want her to stop having aggrssive W/U. (2) FTT Patient is refusing to take p.o. meds. She is also refusing most liquids and any food whatsoever. The patient tells me today that she has no appetite, and "just wants to go home". I spoke to the at bedside today, and friend Shea in room, and we discussed that she is shutting down, with no oral intake for weeks. The stated "I know, she is starving herself to ". He says he understands she is dying and that he does not want her to suffer anymore and also felt that she is dying. On this topic I brought up that she is still full code and explained what that would mean. The said he would like her to have a natural and would like her CODE STATUS changed to DNR. I then discussed comfort care and hospice care and what those include. The does want her to start getting comfort measures and hospice to be involved. Plan: Will change Code Staus to DNR We will begin comfort measures We will order Hospice consult/management (3) HCAP During her last hospitalization 2 months ago the patient grew MSSA and Pseudomonas out of her sputum. Her WBC is remaining severely low and WBC has not risen Plan: We have had her on IV cefepime and IV Flagyl, iv Vanco in case of MRSA and Levaquin in case of Pseudomonas. These will be stopped. (4) COPD without exacerbation Impression: Caused by her respiratory failure from PNA has a chronic wet cough. She does not have a history of COPD in the past, being a former smoker. Her Echo done here last admission, showed Cor Pulmonale. Today she is more tachypneic, I suspect that is from compensating for acidosis. Plan: Continue with inhalers or nebulized meds for comfort Will order Morhine iv prn dyspnea. There is a dizziness side effect to morphine listed, but the benefit of treating her tachypnea and discomfort outweigh the risk of dizziness. (5) Generalized weakness Assessment/Plan: Patient needed more PT and OT and was discharged to a SNF after the last hospiatization. Plan: Will cancel PT and OT (6) Severe protein-calorie malnutrition Assessment/Plan: On examination, I first suspected that she was exhausted and too tired to eat from work of breathing. Then on the last hospiutaliztiom she told me she eats very little because "her grandfather of Diabetes and she may get Diabetes". Also, one of her nurses mentioned that the patient is not interested in eating because she does not want aggressive management and wants to "go be with her sister who is in heaven". Plan: Will change orders, and focus on comfort and dying with Hospice (7) Immunocompromised state due to drug therapy Impression: Due to chronic methotrexate and chronic steroid therapy. Plan: Holding Methotrexate We ordered to continue with her low-dose prednisone 5 mg daily, but she is refusing all po meds (8) Cor Pulmonale Echo done 2 mos ago here showed normal LV size and EF 60%, with diastolic dysfnc present, RA and RV enlargement with normal RV funtion, and elevated PA pressure of about 45 mmHg. (9) Rheumatoid Arthritis Plan: We are holding home medication, Methotrexate d/t its immunosuppresion, and she is not taking her Prednisone (10) Essential Tremor Plan: We ordered her home medication Propranolol LA. She is refusing all po meds - Current Meds Current Meds: Current Medications Generic Name Dose Route Start Last Admin Trade Name Freq PRN Reason Stop Dose Admin Acetaminophen 650 mg 10/11/22 14:39 10/12/22 20:29 Acetaminophen 325 Mg Tablet PO 650 mg Q4HR PRN Administration Pain 1 to 4, or Fever Albuterol 2.5 mg 10/11/22 16:47 10/12/22 07:29 Albuterol Neb 2.5 Mg/3 Ml INH 2.5 mg Q2HR PRN Administration Wheezing Albuterol/Ipratropium 3 ml 10/11/22 16:48 10/13/22 07:00 Ipratropium/Albuterol 3 Ml Neb INH 3 ml Q4HR PRN Administration Wheezing Budesonide 0.5 mg 10/11/22 19:00 10/13/22 07:00 Budesonide 0.5 Mg/2 Ml Neb INH 0.5 mg RTBID REGI Administration Folic Acid 1 mg 10/12/22 09:00 10/13/22 09:07 Folic Acid 1 Mg Tablet PO 1 mg DAILY REGI Administration Guaifenesin 600 mg 10/11/22 21:00 10/13/22 09:07 Guaifenesin 600 Mg Tablet PO 600 mg BID REGI Administration Sodium Chloride 1,000 mls @ 100 mls/hr 10/11/22 15:00 10/13/22 05:19 Normal Saline 0.9% IV 100 mls/hr .Q10H REGI Administration Cefepime HCl 2 gm/ Sodium 100 mls @ 200 mls/hr 10/11/22 21:00 10/13/22 09:00 Chloride IV Infused BID REGI Infusion Metronidazole 500 mg in 100 mls @ 100 mls/hr 10/11/22 17:00 10/13/22 10:10 Flagyl 500 Mg/100 Ml IV Infused Q8H REGI Infusion Levofloxacin 750 mg in 150 mls @ 100 mls/hr 10/12/22 12:00 10/12/22 17:39 Levaquin 750 Mg/150 Ml IV Infused Q48H REGI Infusion Montelukast Sodium 10 mg 10/11/22 21:00 10/12/22 20:29 Montelukast 10 Mg Tablet PO 10 mg QPM REGI Administration Multi-Ingredient Ointment 1 applic 10/12/22 00:04 10/12/22 05:58 Zinc Oxide 20% Oint 30 Gm Tube TOP 1 applic PRN PRN Administration Skin Care Multivitamins 1 tab 10/12/22 09:00 10/13/22 09:06 Multivitamin Tablet PO 1 tab DAILY REGI Administration Potassium Chloride 20 meq 10/12/22 10:00 10/13/22 07:57 Potassium Chloride 20 Meq/15 Ml Udc PO 20 meq DAILYWM REGI Administration Prednisone 5 mg 10/12/22 09:00 10/13/22 09:07 Prednisone 5 Mg Tablet PO 5 mg DAILY REGI Administration Propranolol HCl 80 mg 10/12/22 09:00 10/13/22 09:07 Propranolol Er 80 Mg Capsule PO 80 mg DAILY REGI Administration Sodium Chloride 10 ml 10/11/22 17:00 10/13/22 10:46 Sodium Chloride Flush 0.9% 10 Ml Syringe IVP Not Given 0100,0900,1700 REGI - Lab Result Fish Bone Diagrams: 10/13/22 05:20 10/13/22 05:20 - Additional Planning My Orders: My Active Orders 10/13/22 Hospice Referral for Post-Discharge Services [CONS] Routine 10/13/22 16:00 Vancomycin Inj [Vancomycin] 1 gm Sodium Chloride 0.9% [Normal Saline 0.9%] 250 ml IV Q24H 10/13/22 16:23 Comfort Care [RC] QSHIFT Subjective - Subjective Patient Reports: Shortness of Breath (Tachypneic and mouth breathing) Nursing Reports: Other (Refusing all po meds and all food. Takes sips of liquids infrequently.) Objective Vital Signs: Vital Signs - 24 hr 10/12/22 10/12/22 10/12/22 20:07 21:41 23:45 Temperature 38.3 C H 37.9 C Heart Rate 92 Heart Rate [ 91 Brachial] Respiratory 24 20 Rate Blood Pressure 137/50 H [Left Brachial artery] O2 Saturation 95 10/12/22 10/13/22 10/13/22 23:57 05:14 07:01 Temperature 37.6 C 37.8 C Heart Rate 96 Heart Rate [ 84 90 Brachial] Respiratory 22 20 18 Rate Blood Pressure 100/43 L 132/52 H [Left Brachial artery] O2 Saturation 95 94 10/13/22 10/13/22 08:21 13:00 Temperature 37.6 C 36.4 C L Heart Rate Heart Rate [ 92 88 Brachial] Respiratory 18 26 H Rate Blood Pressure 137/55 H 129/42 L [Left Brachial artery] O2 Saturation 95 96 Oxygen O2 Source Room air I&O (Last 24 Hrs): Intake and Output Totals x24h 10/11/22 10/12/22 10/13/22 23:59 23:59 23:59 Intake Total 6926.662 1628.000 1300 Output Total 250 Balance 6966.463 5515.000 1300 General: Mild distress (Tachypneic), Other (Lethargic. Answers with 1-word answers.) HEENT: Other (Cachectic, sunken eyes and cheeks. Dry oral mucosa.) Neck: Supple Neuro: Other (Lethargic, awakens and barely communicates.) Cardiovascular: Other (Tachycardic, has loud systolic murmur) Respiratory: Wheezes, Rhonchi Abdomen: Soft, No tenderness Extremities: No clubbing, No edema Skin: No rashes ((+) skin tenting) - Results Results: Laboratory Results WBC 1.6 x10^3/uL (4.8-10.8) L* 10/13/22 05:20 RBC 4.07 10^6/uL (4.20-5.40) L 10/13/22 05:20 Hgb 11.3 g/dL (12.0-16.0) L 10/13/22 05:20 Hct 38.3 % (37.0-47.0) 10/13/22 05:20 MCV 94.1 fL (81.0-99.0) 10/13/22 05:20 MCH 27.8 pg (27.0-31.0) 10/13/22 05:20 MCHC 29.5 g/dL (32.0-36.0) L 10/13/22 05:20 RDW 14.9 % (12.0-15.0) 10/13/22 05:20 Plt Count 164 10^3/uL (130-450) 10/13/22 05:20 MPV 9.7 fL (7.9-10.8) 10/13/22 05:20 Neut # (Auto) AGILE SCRUM COACH 10/13/22 05:20 Lymph # (Auto) Not Reportable 10/13/22 05:20 [place] # (Auto) Not Reportable 10/13/22 05:20 Eos # (Auto) Not Reportable 10/13/22 05:20 Baso # (Auto) Not Reportable 10/13/22 05:20 Absolute Nucleated RBC Not Reportable 10/13/22 05:20 Total Counted 100 10/13/22 05:20 Band Neuts % (Manual) 0 % (0-10) 10/13/22 05:20 Reactive Lymphs % (Man) 11 % 10/13/22 05:20 Abnorm Lymph % (Manual) 0 % 10/13/22 05:20 Nucleated RBC % Not Reportable 10/13/22 05:20 Neutrophils # (Manual) 0.0 10^3/uL (1.5-6.6) L* 10/13/22 05:20 Lymphocytes # (Manual) 1.0 10^3/uL (1.5-3.5) L 10/13/22 05:20 Monocytes # (Manual) 0.6 10^3/uL (0.0-1.0) 10/13/22 05:20 Eosinophils # (Manual) 0.0 10^3/uL (0-0.7) 10/13/22 05:20 Basophils # (Manual) 0.0 10^3/uL (0-0.1) 10/13/22 05:20 Differential Comment MANUAL DIFFERENTIAL 10/13/22 05:20 Manual Slide Review Indicated 10/10/22 20:05 WBC Morphology NORMAL APPEARANCE (NORMAL) 10/13/22 05:20 Platelet Estimate NORMAL (130-450,000) (NORMAL) 10/13/22 05:20 Platelet Morphology NORMAL APPEARANCE (NORMAL) 10/13/22 05:20 RBC Morph Micro Appear NORMAL APPEARANCE (NORMAL) 10/13/22 05:20 Sodium 141 mmol/L (135-145) 10/13/22 05:20 Potassium 3.4 mmol/L (3.5-5.0) L 10/13/22 05:20 Chloride 115 mmol/L (101-111) H 10/13/22 05:20 Carbon Dioxide 16 mmol/L (21-32) L 10/13/22 05:20 Anion Gap 10.0 (6-13) 10/13/22 05:20 BUN 16 mg/dL (6-20) 10/13/22 05:20 Creatinine 0.4 mg/dL (0.4-1.0) 10/13/22 05:20 Estimated GFR (MDRD) 152 (>89) 10/13/22 05:20 Glucose 106 mg/dL (70-100) H 10/13/22 05:20 Lactic Acid 1.4 mmol/L (0.5-2.2) 10/10/22 20:05 Calcium 8.5 mg/dL (8.5-10.3) 10/13/22 05:20 Magnesium 2.1 mg/dL (1.7-2.8) 10/13/22 05:20 Total Bilirubin 0.9 mg/dL (0.2-1.0) 10/11/22 16:45 AST 27 IU/L (10-42) 10/11/22 16:45 ALT 34 IU/L (10-60) 10/11/22 16:45 Alkaline Phosphatase 53 IU/L (42-121) 10/11/22 16:45 Total Protein 6.0 g/dL (6.7-8.2) L 10/11/22 16:45 Albumin 3.0 g/dL (3.2-5.5) L 10/11/22 16:45 Globulin 3.0 g/dL (2.1-4.2) 10/11/22 16:45 Albumin/Globulin Ratio 1.0 (1.0-2.2) 10/11/22 16:45 Lipase 31 U/L (22-51) 10/10/22 20:05 TSH 1.07 uIU/mL (0.34-5.60) 10/10/22 20:05 Urine Color YELLOW 10/10/22 21:12 Urine Clarity CLOUDY (CLEAR) 10/10/22 21:12 Urine pH 7.0 PH (5.0-7.5) 10/10/22 21:12 Ur Specific [place] 1.015 (1.002-1.030) 10/10/22 21:12 Urine Protein NEGATIVE mg/dL (NEGATIVE) 10/10/22 21:12 Urine Glucose (UA) NEGATIVE mg/dL (NEGATIVE) 10/10/22 21:12 Urine Ketones 15 mg/dL (NEGATIVE) H 10/10/22 21:12 Urine Occult Blood NEGATIVE (NEGATIVE) 10/10/22 21:12 Urine Nitrite NEGATIVE (NEGATIVE) 10/10/22 21:12 Urine Bilirubin NEGATIVE (NEGATIVE) 10/10/22 21:12 Urine Urobilinogen 0.2 (NORMAL) E.U./dL (NORMAL) 10/10/22 21:12 Ur Leukocyte Esterase NEGATIVE (NEGATIVE) 10/10/22 21:12 Urine RBC 0-5 /HPF (0-5) 10/10/22 21:12 Urine WBC 0-3 /HPF (0-5) 10/10/22 21:12 Ur Squamous Epith Cells MANY Squamous (<= Few) H 10/10/22 21:12 Amorphous Sediment Marked /LPF 10/10/22 21:12 Urine Bacteria None Seen /HPF (None Seen) 10/10/22 21:12 Ur Microscopic Review INDICATED 10/10/22 21:12 Urine Culture Comments NOT INDICATED 10/10/22 21:12 Nasal Adenovirus (PCR) NOT DETECTED 10/10/22 19:43 Nasal B. parapertussis DNA (PCR) NOT DETECTED 10/10/22 19:43 Nasal Coronavir 229E PCR NOT DETECTED 10/10/22 19:43 Nasal Coronavir HKU1 PCR NOT DETECTED 10/10/22 19:43 Nasal Coronavir NL63 PCR NOT DETECTED 10/10/22 19:43 Nasal Coronavir OC43 PCR NOT DETECTED 10/10/22 19:43 Nasal Enterovir/Rhinovir PCR NOT DETECTED 10/10/22 19:43 Nasal Influenza B PCR NOT DETECTED 10/10/22 19:43 Nasal Influenza A PCR NOT DETECTED 10/10/22 19:43 Nasal Parainfluen 1 PCR NOT DETECTED 10/10/22 19:43 Nasal Parainfluen 2 PCR NOT DETECTED 10/10/22 19:43 Nasal Parainfluen 3 PCR NOT DETECTED 10/10/22 19:43 Nasal Parainfluen 4 PCR NOT DETECTED 10/10/22 19:43 Nasal RSV (PCR) NOT DETECTED 10/10/22 19:43 Nasal B.pertussis DNA PCR NOT DETECTED 10/10/22 19:43 Nasal C.pneumoniae (PCR) NOT DETECTED 10/10/22 19:43 Oscar Human Metapneumo PCR NOT DETECTED 10/10/22 19:43 Nasal M.pneumoniae (PCR) NOT DETECTED 10/10/22 19:43 Nasal SARS-CoV-2 (PCR) NOT DETECTED 10/10/22 19:43 - Procedures Procedures: Procedures INSERTION OF ENDOTRACHEAL AIRWAY INTO TRACHEA, VIA OPENING (08/25/22) INSERTION OF INFUSION DEV INTO SUP VENA CAVA, PERC APPROACH (08/25/22) RESPIRATORY VENTILATION, 24-96 CONSECUTIVE HOURS (08/25/22)
--- NOTE | 2022-10-13 18:04 | PROVIDER PROGRESS NOTE ---
Progress Note 82 yo female w/RA on chronic MTX and prednisone,w/chronic immunosuppression, COPD, severe PCM and GERD admitted w/neutropenic fever and COPD exacerbation. She was previously admitted to our facility from 08/25-09/06/22 w/HCAP. She was found to have evidence of inflammation/infiltrate in the RLL (CXR) and LLL (CT) as well as suggestion of gastroenteritis on CT abd/pelvis. SHe was initiated on broad-spectrum abx. Today, the hospitalist service placed a hospice consult. Eileen Chang RN, Hospice Mgr and I presented to bedside. Pt's family was not present. Pt c/o feeling poorly. She is notably tachypneic and c/o feeling somewhat anxious. Asked to be left alone to rest. Msg left for pt's spouse to return call. Pt can be admitted on Monday morning if desired. Would likely benefit from low-dose opioid for dyspnea if she is receptive.
[2022-10-13] MEDS: MONTELUKAST 10 MG TABLET PO SCH (21:19)
[2022-10-13] MEDS ORDERED: MORPHINE 2 MG/ML CARPUJECT IVP PRN (22:26)
[2022-10-14] MEDS: SODIUM CHLORIDE FLUSH 0.9% 10 ML SYRINGE IVP SCH ×2 (00:39→10:23)
[2022-10-14] MEDS: ZINC OXIDE 20% OINT 30 GM TUBE TOP PRN (04:25)
[2022-10-14 06:39] VITALS: BP 156/60
[2022-10-14] MEDS: BUDESONIDE 0.5 MG/2 ML NEB INH SCH (07:46)
[2022-10-14] MEDS: SODIUM CHLORIDE 0.9% 1,000 ML IV SCH (07:49)
[2022-10-14] MEDS: CEFEPIME 2 GM in SODIUM CHLORIDE 0.9% MINIBAG 100 ML IV SCH (08:50)
[2022-10-14] MEDS: guaiFENesin 600 MG TABLET PO SCH (10:22)
[2022-10-14] MEDS: FOLIC ACID 1 MG TABLET PO SCH (10:22)
[2022-10-14] MEDS: POTASSIUM CHLORIDE 20 MEQ/15 ML UDC PO SCH (10:22)
[2022-10-14] MEDS: MULTIVITAMIN TABLET PO SCH (10:23)
[2022-10-14] MEDS: predniSONE 5 MG TABLET PO SCH (10:23)
[2022-10-14] MEDS: PROPRANOLOL ER 80 MG CAPSULE PO SCH (10:23)
[2022-10-14] MEDS ORDERED: guaiFENesin 600 MG TABLET PO PRN (11:27)
--- NOTE | 2022-10-14 12:44 | Discharge Plan ---
Discharge Plan Problem Reviewed?: Yes Disposition: Home, Self Care Condition: Poor Prescriptions: LORazepam [Ativan] 0.5 mg PO Q6H PRN #8 tablet PRN Reason: Anxiety guaiFENesin LIQUID [Robitussin Liquid] 100 mg PO QID PRN #1 ea PRN Reason: Cough Morphine Oral Soln [Roxanol] 5 mg PO Q4H PRN #30 ml PRN Reason: As Needed Per Provider Orders Diet: Soft Activity Restrictions: Activity as Tolerated Shower Restrictions: No Health Concerns: The patient was hospitalized with a dangerously low white blood count and a fever and we found her to have a pneumonia. She was on treatment with IV antibiotics and IV fluids. She has been malnourished for many months and now refuses any oral nutrition and even minimal liquids. As such, because of her failure to thrive, her body is shutting down. Hospice care is appropriate and the Hospice team will be her medical provider on 10/17/2022. The patient is being discharged home today and goals are now for her to have comfort. She may eat and drink whatever she wants for comfort. We are not expecting her to get up and exercise and get stronger with physical therapy because of her malnutrition. A hospital bed will be delivered to the house. If the patient refuses to take her medications, please respect her wishes. Several new medications have been electronically sent to her pharmacy, which you can give her for pain control and if she has severe shortness of breath. Plan of Treatment: As above. Care Goals: Her comfort in dying and dignity are the goals. Assessment: The understands and is agreeable with the plan. No Smoking: If you smoke, Please STOP! Call for help. Follow-up with: Kelly Poe MD [Provider Admit Priv/Credential] -
--- NOTE | 2022-10-14 13:05 | DISCHARGE SUMMARY ---
Discharge Summary Admit Date: 10/11/22 Discharge Date: 10/14/22 Discharging Provider: Dr Gabby Crowder Primary Care Provider: Staff provider at [facility] Code Status: Do Not Attempt Resuscitation Condition at Discharge: Poor Discharge Disposition: 01 Home, Self Care - HPI History of Present Illness: This is a 82-year-old female who has a history of rheumatoid arthritis on methotrexate and prednisone and history of COPD. She was admitted here 2 months ago with respiratory failure, a pneumonia, and needed to be on a ventilator. The patient presented to the emergency room last night complaining of being "unwell for the last 3 to 4 days". When EMS picked her up they noted a temperature of 102.7 F. In the ED she had a documented fever of 38.5 degrees C. She was tachycardic. Her white count was remarkably low at 1.4 with a zero absolute neutrophil count. This is entirely new for her, she has never had neutropenia before even on her immunosuppressants. Work-up to look for source of fever included a chest x-ray that shows a right lower lobe infiltrate. CT of the abdomen also reported that the lower part of the right lung had groundglass abnormalities. The night ED provider reached out to the Telemedicine doctor for admission, but he advised getting input first from [facility] Facilitator before the patient be admitted here. Hematology was consulted who stated that the patient could be admitted here and managed as a neutropenic fever and then to have Hematology management as an outpatient. The patient had blood cultures done and then has been started on broad-spectrum IV antibiotics, IV Aztreonam, IV Flagyl and IV Cefepime. The ED provider spoke to me for admitting this patient to manage neutropenic fever and healthcare associated pneumonia (given the hospitalization <90 days ago), in a patient who is immunosuppressed from medications being taken for rheumatoid arthritis. - HOSPITAL COURSE Hospital Course: (1) Neutropenic fever There was concern that she may have an underlying bone marrow pathology however we admitted her to treat her as a neutropenic fever, presumably neutropenic due to sepsis. The source appeared to be pneumonia. We planned neutropenic precautions for her food and environment, but she wanted nothing at all to eat and so the was approached about bringing her home to under Hospice with comfort care, which we did. (2) FTT Patient refused to take p.o. meds. She also refused most liquids and any food whatsoever. The patient said she has no appetite, and "just wants to go home". I spoke to the and we discussed that she is shutting down, with no oral intake for weeks. The stated "I know, she is starving herself to ". He said he understood that she was dying and said that he does not want her to suffer anymore. Lucero was discharged home under Hospice management (3) Severe protein-calorie malnutrition We changed orders, and focused on comfort and dying with Hospice (4) HCAP Her WBC remained severely low. We had her on IV cefepime and IV Flagyl, plus iv Vanco in case of MRSA and iv Levaquin in case of Pseudomonas. These were stopped. (5) COPD without exacerbation She was not desaturating or wheezing. She has a history of COPD, being a former smoker. Her Echo done here last admission, showed Cor Pulmonale. (6) Generalized weakness We cancelled any PT and OT (7) Immunocompromised state due to drug therapy Due to chronic methotrexate and chronic steroid therapy. (8) Cor Pulmonale Echo done here 2 mos ago showed normal LV size and EF 60%, with diastolic dysfnc present, RA and RV enlargement with normal RV funtion, and elevated PA pressure of about 45 mmHg. (9) Rheumatoid Arthritis We were holding home medication, Methotrexate d/t its immunosuppresion, and she was not taking her Prednisone (10) Essential Tremor She had been on Propranolol LA for this but here she refused all po meds. - ALLERGIES Allergies/Adverse Reactions: Allergies Allergy/AdvReac Type Severity Reaction Status Date / Time meperidine HCl * AdvReac Unknown Hallucinati Verified 08/25/22 15:36 [From Demerol] ons morphine AdvReac Unknown Dizziness Verified 08/25/22 15:36 Penicillins AdvReac Unknown Unknown Verified 10/11/22 07:21 Sulfa (Sulfonamide AdvReac Unknown Rash Verified 08/25/22 15:36 Antibiotics) tetracycline AdvReac Unknown Rash Verified 08/25/22 15:36 - MEDICATIONS Home Medications: Ambulatory Orders Medication Instructions Recorded Confirmed predniSONE [Deltasone] 5 mg PO DAILY 12/20/12 10/13/22 Budesonide [Pulmicort] 0.5 mg INH RTBID ml 09/06/22 10/13/22 Famotidine [Pepcid] 20 mg PO BID tab 09/06/22 10/13/22 Formoterol Fumarate [Perforomist] 20 mcg INH RTBID ml 09/06/22 10/13/22 Methotrexate Sodium/Pf 25 mg SUBQ MO #0 09/06/22 10/13/22 [Methotrexate 50 mg/2 ml Vial] Montelukast [Singulair] 10 mg PO QPM tab 09/06/22 10/13/22 Zinc Oxide 20% Oint [Zinc Oxide] 1 applic TOP PRN PRN each 09/06/22 10/13/22 Acetaminophen [Acetaminophen Extra 1,000 mg PO Q6H PRN 10/13/22 10/13/22 Strength] Ipratropium [Atrovent] 0.5 mg INH BID 10/13/22 10/13/22 Propranolol ER [Inderal LA] 80 mg PO BID 10/13/22 10/13/22 LORazepam [Ativan] 0.5 mg PO Q6H PRN #8 tablet 10/14/22 Morphine Oral Soln [Roxanol] 5 mg PO Q4H PRN #30 ml 10/14/22 guaiFENesin LIQUID [Robitussin 100 mg PO QID PRN #1 ea 10/14/22 Liquid] - PHYSICAL EXAM AT DISCHARGE General Appearance: positive: Moderate distress (She is tachypneic and cachectic), Other (Cachectic ) Eyes Bilateral: positive: Other (Sunken eyes) ENT: positive: Dry mucous membranes, Other (Temporal wasting) Neck: positive: Nml inspection Respiratory: positive: Other (Lung sounds have poor air movement but clear and she is tachypneic) Cardiovascular: positive: No murmur Abdomen: positive: Non-tender, No distention, Other (Scaphoid abdomen) Skin: positive: Warm, Dry, Other (Positive skin tenting) Extremities: positive: No pedal edema Neurologic/Psychiatric: positive: Oriented x3, Motor nml - LABS Result Diagrams: 10/13/22 05:20 10/13/22 05:20 - DIAGNOSTIC IMAGING Diagnostic Imaging Results: Final report reviewed - FOLLOW UP Follow Up: She will now be under the care of of Hospice, Dr. Poe mobile paramedical examiner. - TIME SPENT Time Spent in Discharge (Minutes): 40
== END 2022-10-14 13:54 | disposition home or self-care (01) | DRG 871 ==
LOC: EDUNIT# → ED 18:40 → MS2 10-11 14:38 → MS3 10-11 14:39 → UNDOADMIN 10-11 14:39
PROVIDERS: ADMIT Internal Medicine; ATTEND Internal Medicine
DX: A41.9 Sepsis, unspecified organism (principal); E43 Unspecified severe protein-calorie malnutrition; E87.6 Hypokalemia; R10.30 Lower abdominal pain, unspecified; Z20.822 Contact with and (suspected) exposure to COVID-19; J18.9 Pneumonia, unspecified organism; J44.1 Chronic obstructive pulmonary disease with (acute) exacerbation; J44.0 Chronic obstructive pulmonary disease with (acute) lower respiratory infection; Z68.1 Body mass index [BMI] 19.9 or less, adult; D70.9 Neutropenia, unspecified; R50.81 Fever presenting with conditions classified elsewhere; Z66 Do not resuscitate; Y95 Nosocomial condition; M06.9 Rheumatoid arthritis, unspecified; R62.7 Adult failure to thrive; I27.81 Cor pulmonale (chronic); G25.0 Essential tremor; Z53.29 Procedure and treatment not carried out because of patient's decision for other reasons; K21.9 Gastro-esophageal reflux disease without esophagitis; H54.7 Unspecified visual loss; Z87.891 Personal history of nicotine dependence; Z79.52 Long term (current) use of systemic steroids; Z79.899 Other long term (current) drug therapy; Z79.631 Long term (current) use of antimetabolite agent
CPT/HCPCS: 36415; 71046; 74177; 80048; 80053; 81001; 83605; 83690; 83735; 84443; 85025; 87040; 87633; 93005; 94640; 96365; 96366; 96367; 97161; 97165; 99285; A9270; J3370; J7512; J7626; Q9967; 81003; 87086

== ENCOUNTER 2022-10-14 13:52 | Outpatient (CLI) | payer MEDICARE, OTHER | END 2022-10-14 13:53 | disposition home or self-care (01) | LOC: EMS 13:52 | PROVIDERS: ATTEND Internal Medicine | DX: Z51.5 Encounter for palliative care (principal); J18.9 Pneumonia, unspecified organism; R62.7 Adult failure to thrive; E46 Unspecified protein-calorie malnutrition | CPT/HCPCS: A0425; A0429 ==

== ENCOUNTER 2022-10-16 06:23 | Outpatient (CLI) | payer MEDICARE, OTHER | END 2022-10-16 06:24 | disposition EMS.NT | LOC: EMS 06:23 | DX: Z03.89 Encounter for observation for other suspected diseases and conditions ruled out (principal) ==